=== PATIENT | male | born 1975 | race Caucasian/White ===

== ENCOUNTER → 2018-11-09 07:57 | Outpatient (CLI) | payer OTHER, MEDICAID, SELFPAY ==
[2018-11-09 08:26] LABS: Add Manual Diff / Slide Review NO; Basophils Percent Auto 0.3 % (0-2); Eosinophils Percent Auto 3.6 % (2-4); Hematocrit 43.9 % (41-53); Hemoglobin 15.1 g/dL (13.5-17.5); Lymphocytes Percent Auto 36.5 % (25-40); Mean Corpuscular HGB Conc 34.3 % (30-36); Mean Corpuscular Hemoglobin 30.8 PG (26-34); Mean Corpuscular Volume 89.8 fL (80-100); Monocytes Percent Auto 9.1 % (3-14); Neutrophils Absolute Auto 3500 /uL (3000-5900); Neutrophils Percent Auto 50.5 % (50-75); Platelet Count 193 X10^3/uL (150-400); Red Blood Cell Count 4.89 X10^6/uL (4.5-5.9); Red Cell Distribution Width 14.1 % (11.6-14.8)
[2018-11-09 08:37] LABS: Alanine Aminotransferase 21 IU/L (21-72); Albumin 4.5 g/dL (3.5-5.0); Albumin Globulin Ratio 1.6 (1.0-2.8); Alkaline Phosphatase 59 U/L (38-126); Aspartate Aminotransferase 21 IU/L (17-59); Bilirubin Total 0.4 mg/dL (0.2-1.3); Blood Urea Nitrogen 11 mg/dL (9-20); Calcium 9.4 mg/dL (8.4-10.2); Carbon Dioxide 29 mmol/L (22-32); Chloride 100 mmol/L (98-107); Cholesterol 229 mg/dL (140-199); Estimated Glomerular Filt Rate > 60.0 mL/min (>60); Globulin 2.8 g/dL (1.7-4.1); Glucose 102 mg/dL (70-100); HDL Cholesterol 46 mg/dL (40-60); HEMOLYSIS 20 (0-50); LDL Cholesterol Calculated 104 mg/dL (<100); Potassium 4.3 mmol/L (3.4-5.1); Sodium 141 mmol/L (137-145); Total Protein 7.3 g/dL (6.3-8.2); Triglycerides 397 mg/dL (35-150)
[2018-11-09 09:07] LABS: TSH w/ Reflex to FT4 1.61 uIU/mL (0.47-4.68)
[2018-11-12 17:44] LABS: Testosterone Free 26.7 pg/mL (35.0-155.0); Testosterone Total 233 ng/dL (250-1100)
== END ==
PROVIDERS: PCP Family Medicine; Visit Provider Family Medicine
DX: R68.82 Decreased libido (principal); Z13.220 Encounter for screening for lipoid disorders
CPT/HCPCS: 36415; 80053; 80061; 84402; 84403; 84443; 85025

== ENCOUNTER → 2022-09-25 15:32 | Outpatient (CLI) | payer OTHER, MEDICAID, SELFPAY ==
[2022-09-25 16:23] LABS: COVID19 -Nasal RAPID Negative (Negative)
== END ==
PROVIDERS: PCP Family Medicine; Visit Provider Surgery
DX: Z20.822 Contact with and (suspected) exposure to COVID-19 (principal); Z01.812 Encounter for preprocedural laboratory examination
CPT/HCPCS: 87635; C9803

== ENCOUNTER 2022-09-26 13:35 | Day surgery (SDC) | payer OTHER, MEDICAID, SELFPAY ==
--- NOTE | 2022-09-26 | PATH_ITS ---
[facility] Accession Number: [id number] . 01 Material submitted: . colon - CECAL POLYP . 01 Diagnosis: Cecum, Polyp, Biopsy: Tubular adenoma. MRV 10/01/2022 1246 Local . 01 Electronically signed: . Heaven Brenner MD, Pathologist NPI- [id number] . 01 Gross description: . CECAL POLYP: Received in formalin is 1 fragment(s) of de la cruz, soft tissue measuring 0.6 x 0.3 x 0.3 cm submitted entirely in 1 cassette(s) /[place] 09/30/2022 1853 Local . 01 Pathologist provided ICD-10: D12.0 . 01 CPT . 085965 Specimen Comment: A courtesy copy of this report has been sent to [phone] Performed at: 01 [facility] [address] [place] [address] [id number] MD Drew Ludwig MD Phone: [phone]
[2022-09-26 14:03] VITALS: BP 163/102; PULSE 106; RESP 17; TEMP 36.6; O2SAT 100; BMI 31.5
[2022-09-26] MEDS: LACTATED RINGERS 1,000 ML 42 ML IV (14:33)
--- NOTE | 2022-09-26 15:52 | PM.HP.1 ---
History of Present Illness History of Present Illness Date Patient Seen: 09/26/22 Time Patient Seen: 15:53 Chief complaint: SDC Narrative: Eric is a 46-year-old man who has never had a colonoscopy. He has had family members with colon cancer including both grandparents and aunt. Patient History Medical History (Updated 09/26/22 @ 15:53 by Harrison Van MD) Acne (Unknown) Alcohol abuse (~2016) Decreased libido Erectile dysfunction Essential hypertension (09/12/16) Hypertension (2004) Low back pain (Unknown) Polyneuropathy (Unknown) Surgical History Hx of cholecystectomy (2001) Family & Social History Family History Grandmother Mental health problem Grandfather Cancer Grandmother Cancer Social History: household members spouse Tobacco & Substance use: Smoking Status Former smoker alcohol intake current alcohol intake frequency 0-2 drinks per day Substance Use Type does not use Meds Home Medications and Allergies Home Medications Medication Instructions Recorded Confirmed Type propranolol 10 mg tablet 10 mg PO TIDP PRN anxiety #90 tabs 04/30/18 Rx lisinopril 20 mg tablet 20 mg PO QDAY #90 tabs 03/16/19 09/26/22 Rx doxycycline monohydrate 50 mg 50 mg PO DAILY 09/26/22 History capsule pregabalin 75 mg capsule 75 mg PO TID 09/26/22 09/26/22 History tramadol 50 mg tablet 50 mg PO DAILY 09/26/22 09/26/22 History Allergies Allergy/AdvReac Type Severity Reaction Status Date / Time No Known Drug Allergies Allergy Verified 09/26/22 13:53 Exam Vital Signs (past 8 hours): - 09/26/22 14:03 Temperature 98 F Pulse Rate 106 H Respiratory Rate 17 Blood Pressure 163/102 H Pulse Oximetry 100 Oxygen Delivery Method Room Air Oxygen Delivery Method Room Air Const General: healthy appearing Assessment & Plan Assessment and plan (1) Family history of colon cancer: Status: Acute Plan Eric is a 46-year-old man who is here for colonoscopy. We reviewed the risks and benefits and he would like to proceed. Time Spent With Patient Critical Care time: I spent a total of [] minutes of critical care time on this patient's care today; this time is exclusive of procedural time.
[2022-09-26] MEDS: MIDAZOLAM 5 MG/5 ML VIAL 10 MG IV (16:09)
[2022-09-26] MEDS: fentaNYL 100 MCG/2 ML INJ 250 MCG IV (16:13)
--- NOTE | 2022-09-26 16:25 | PM.OP.COLON ---
Operative Date/Time/Diagnoses Date of procedure: 09/26/22 Time of procedure: 16:25 Pre-op diagnosis: Colon cancer screening Post-op diagnosis: same Procedure & Clinicians Study performed: Colonoscopy Same procedure as scheduled: Yes Surgeon: Harrison Van Procedure Notes Procedure in detail: Surgeon: Harrison Van MD Procedure: The patient was brought to the endoscopy suite, placed in left lateral decubitus position. The patient was connected to monitoring devices. A time-out was performed. Sedation was administered. Once the patient was adequately sedated, a digital rectal exam was performed and was normal. The scope was then inserted and advanced to the cecum where the appendiceal orifice was identified and photographed. The scope was then slowly withdrawn over greater than 6 minutes. The mucosa was thoroughly inspected. There was a 5 mm cecal polyp removed with a cold snare. No other abnormalities were noted. The scope was retroflexed in the rectum. Some internal hemorrhoids were noted. The scope was straightened and removed. The patient was awakened and brought to recovery. Versed: 10 mg Fentanyl: 250 mcg EBL: 5 mL Findings: 5 mm cecal polyp Scope withdrawal time: 10 Sedation minutes: 24 Post-procedure Recommendations: Will call with biopsy results Disposition: PACU
[2022-09-26 16:29] VITALS: BP 140/91; PULSE 98; RESP 15; TEMP 36.3; O2SAT 98
[2022-09-26 16:34] VITALS: BP 137/94; PULSE 94; RESP 14; O2SAT 98
[2022-09-26 16:39] VITALS: BP 128/89; PULSE 85; RESP 15; O2SAT 98
[2022-09-26 16:43] VITALS: BP 130/86; PULSE 79; RESP 14; TEMP 36.2; O2SAT 98
== END 2022-09-26 16:52 | disposition home or self-care (01) ==
PROVIDERS: PCP Family Medicine; Referring Provider Surgery; Visit Provider Surgery
PROC: 0DJD8ZZ Inspection of Lower Intestinal Tract, Via Natural or Artificial Opening Endoscopic (ICD-10-PCS; CPT 45378; principal; 2022-09-26 14:30)
DX: Z12.11 Encounter for screening for malignant neoplasm of colon (principal); D12.0 Benign neoplasm of cecum
CPT/HCPCS: 45385; 99152; 99153; J2250; J3010

== ENCOUNTER 2023-06-20 23:27 | Emergency (ER) | payer OTHER, MEDICAID, SELFPAY ==
[2023-06-20 23:33] VITALS: BP 151/93; PULSE 94; RESP 16; TEMP 36.4; O2SAT 95
[2023-06-21] MEDS: THIAMINE 100 MG in SODIUM CHLORIDE 0.9% 100 ML 404 MG IV (01:35)
[2023-06-21] MEDS: SODIUM CHLORIDE 0.9% 1,000 ML 1000 ML IV (01:36)
--- NOTE | 2023-06-21 01:41 | PC.NURSE ---
pt states he drinks daily when asked how much he just states a lot, does have a history of having the shakes and has had withdrawal sz in the past. pt asked when was the last time he had either and he stated he had the shakes a couple of days ago
[2023-06-21 01:44] LABS: Add Manual Diff / Slide Review NO; Basophils Absolute Auto 0 /uL (0-100); Basophils Percent Auto 0.8 % (0-2); Eosinophils Absolute Auto 200 /uL (0-450); Eosinophils Percent Auto 4.4 % (2-4); Hemoglobin 16.5 g/dL (13.5-17.5); Lymphocytes Absolute Auto 2400 /uL (1100-4500); Lymphocytes Percent Auto 47.9 % (25-40); Mean Corpuscular HGB Conc 35.9 % (30-36); Mean Corpuscular Hemoglobin 34.6 PG (26-34); Mean Corpuscular Volume 96.4 fL (80-100); Monocytes Absolute Auto 400 /uL (0-900); Monocytes Percent Auto 7.8 % (3-14); Neutrophils Absolute Auto 1900 /uL (1500-7000); Neutrophils Percent Auto 39.1 % (50-75); Platelet Count 153 X10^3/uL (150-400); Red Blood Cell Count 4.77 X10^6/uL (4.5-5.9); Red Cell Distribution Width 14.3 % (11.6-14.8); White Blood Cell Count 4.9 X10^3/uL (4.5-11.0)
[2023-06-21 01:49] LABS: Alanine Aminotransferase 53 IU/L (<50); Albumin 4.4 g/dL (3.5-5.0); Albumin Globulin Ratio 1.3 (1.0-2.8); Alkaline Phosphatase 71 U/L (38-126); Aspartate Aminotransferase 69 IU/L (17-59); BUN Creatinine Ratio 9.2 (6-22); Bilirubin Total 0.8 mg/dL (0.2-1.3); Blood Urea Nitrogen 8 mg/dL (9-20); Carbon Dioxide 27 mmol/L (22-32); Chloride 97 mmol/L (98-107); Estimated Glomerular Filt Rate > 60 mL/min (>60); Globulin 3.4 g/dL (1.7-4.1); Glucose 108 mg/dL (70-100); HEMOLYSIS < 15 (0-50); Lipase 54 U/L (23-300); Potassium 4.1 mmol/L (3.4-5.1); Sodium 141 mmol/L (137-145); Total Protein 7.8 g/dL (6.3-8.2)
[2023-06-21 02:14] LABS: Ethanol (ETOH) 432 mg/dL
--- NOTE | 2023-06-21 03:51 | ED.GENADULT ---
HPI - General Adult General Chief complaint: Toxicology Problem Stated complaint: ETOH Time Seen by Provider: 06/21/23 00:07 Mode of arrival: EMS History of Present Illness HPI narrative: 47-year-old gentleman who reportedly has been on a 3 day drinking binge. His noticed that he was slumped over in the chair slid off the chair onto the floor without significant injury. was concerned, called EMS, patient was reportedly relatively aggressive with EMS but has calmed nicely in the emergency department. He is acutely intoxicated and effective communication is challenging. He has no specific complaints at this time Related Data Home Medications Medication Instructions Recorded Confirmed doxycycline monohydrate 50 mg 50 mg PO DAILY 09/26/22 capsule pregabalin 75 mg capsule 75 mg PO TID 09/26/22 09/26/22 tramadol 50 mg tablet 50 mg PO DAILY 09/26/22 09/26/22 Previous Rx's Medication Instructions Recorded propranolol 10 mg tablet 10 mg PO TIDP PRN anxiety #90 tabs 04/30/18 lisinopril 20 mg tablet 20 mg PO QDAY #90 tabs 03/16/19 chlordiazepoxide HCl 25 mg capsule 25 mg PO TID PRN alcohol 06/21/23 withdrawal #10 caps Allergies Allergy/AdvReac Type Severity Reaction Status Date / Time No Known Drug Allergies Allergy Verified 09/26/22 13:53 Review of Systems Review of Systems ROS Unobtainable: Unobtainable due to medical condition Patient History Medical History (Updated 06/21/23 @ 06:52 by Adela Morales MD) Acne (Unknown) Alcohol abuse (~2016) Decreased libido Erectile dysfunction Essential hypertension (09/12/16) Hypertension (2004) Low back pain (Unknown) Polyneuropathy (Unknown) Surgical History Hx of cholecystectomy (2001) Family History Grandmother Mental health problem Grandfather Cancer Grandmother Cancer Social History household members: spouse Smoking Status: Former smoker Tobacco: How many years used: 1 Smokeless tobacco user: chewing tobacco (many, many years) alcohol intake: current substance use type: does not use Smoking Status: Former smoker alcohol intake frequency: 0-2 drinks per day Substance Use Type: does not use Exam Initial Vital Signs Initial Vital Signs: Vital Signs Temperature 97.6 F 06/20/23 23:33 Pulse Rate 94 H 06/20/23 23:33 Respiratory Rate 16 06/20/23 23:33 Blood Pressure 151/93 H 06/20/23 23:33 Pulse Oximetry 95 06/20/23 23:33 Oxygen Delivery Method Room Air 06/20/23 23:33 General: Acutely intoxicated but in no acute distress. Well-nourished well-developed HEENT: Moist mucous membranes, slightly flushed face with normal sclera with reactive pupils, minor abrasion to the left side of his forehead Respiratory: Lungs are clear to auscultation, no wheezing no rales no rhonchi. Full and symmetrical air movement Cardiac: Regular rate and rhythm no murmurs no bruits Abdomen: Soft, nontender, good bowel tones, no flank pain Skin: Warm and dry, no rashes Neurologic: Moving all extremities, antalgic gait Extremities: No trauma, well perfused Psych: Intoxicated, poor overall insight, slightly slurred Course Orders Ordered: ED Orders 06/21/23 01:27 Complete Blood Count AUTO DIFF Stat Comprehensive Metabolic Panel Stat ETOH [Ethanol (ETOH)] Stat Lipase Stat Discontinued Medications Thiamine HCl 100 mg/ Sodium (Chloride) 101 mls @ 404 mls/hr IV NOW ONE Stop: 06/21/23 01:32 Last Infusion: 06/21/23 02:05 Dose: 0 mls/hr Documented By: Admin: 06/21/23 01:35 Dose: 404 mls/hr Documented By: KAREEM Sodium Chloride (Normal Saline 0.9%) 1,000 mls @ 1,000 mls/hr IV BOLUS ONE Stop: 06/21/23 02:30 Last Infusion: 06/21/23 03:56 Dose: 0 mls/hr Documented By: Admin: 06/21/23 01:36 Dose: 1,000 mls/hr Documented By: KAREEM Vital Signs Vital signs: Vital Signs - 8 hr 06/20/23 23:33 06/21/23 05:30 Temperature 97.6 F Pulse Rate 94 H 80 Respiratory Rate 16 16 Blood Pressure 151/93 H 143/93 H Pulse Oximetry 95 98 Oxygen Delivery Method Room Air Room Air Medical Decision Making Lab Data 06/21/23 01:27 06/21/23 01:27 Labs: Lab Results 06/21/23 06/21/23 06/21/23 Range/Units 01:27 01:27 01:27 WBC 4.9 (4.5-11.0) X10^3/uL RBC 4.77 (4.5-5.9) X10^6/uL Hgb 16.5 (13.5-17.5) g/dL Hct 46.0 (41-53) % MCV 96.4 (80-100) fL MCH 34.6 H (26-34) PG MCHC 35.9 (30-36) % RDW 14.3 (11.6-14.8) % Plt Count 153 (150-400) X10^3/uL Neut % (Auto) 39.1 L (50-75) % Lymph % (Auto) 47.9 H (25-40) % Spink % (Auto) 7.8 (3-14) % Eos % (Auto) 4.4 H (2-4) % Baso % (Auto) 0.8 (0-2) % Neut # (Auto) 1900 (9719-3276) /uL Lymph # (Auto) 2400 (9574-2801) /uL Spink # (Auto) 400 (0-900) /uL Eos # (Auto) 200 (0-450) /uL Baso # (Auto) 0 (0-100) /uL Sodium 141 (137-145) mmol/L Potassium 4.1 (3.4-5.1) mmol/L Chloride 97 L (98-107) mmol/L Carbon Dioxide 27 (22-32) mmol/L BUN 8 L (9-20) mg/dL Creatinine 0.87 (0.66-1.25) mg/dL Estimated GFR > 60 (>60) mL/min BUN/Creatinine Ratio 9.2 (6-22) Glucose 108 H (70-100) mg/dL Calcium 9.0 (8.4-10.2) mg/dL Total Bilirubin 0.8 (0.2-1.3) mg/dL AST 69 H (17-59) IU/L ALT 53 H (<50) IU/L Alkaline Phosphatase 71 (38-126) U/L Total Protein 7.8 (6.3-8.2) g/dL Albumin 4.4 (3.5-5.0) g/dL Globulin 3.4 (1.7-4.1) g/dL Albumin/Globulin Ratio 1.3 (1.0-2.8) Lipase 54 (23-300) U/L Ethyl Alcohol 432 H* ( - 10) mg/dL [facility] Narrative Medical decision making narrative: CC: Acute intoxication, almost passed out at home slipped to the floor, this is an acute issue uncertain prognosis Complicating co-morbidities: Alcohol use disorder that had been in relative remission, return to use over the last 72 hours. Hypertension, peripheral neuropathy Data collected from: patient, EMS Social determinants of health that may influence the patients condition: Alcohol use disorder Medical records reviewed: Primary care notes reviewed Differential considered: Acute alcohol intoxication Exam documented above, pertinent findings include: Smells of alcohol, sleeping soundly, heart and lungs are unremarkable no pain behaviors with palpation of his abdomen Lab Test results independently reviewed as above. Pertinent findings: CBC is unremarkable with no significant anemia Chemistries are relatively benign with the exception of mildly elevated AST and ALT consistent with an alcohol transaminitis Alcohol level is 432 Treatments: Parenteral fluids, thiamine Re-evaluations: 4:00 a.m. continues to be sleeping soundly. At this point simply needs to metabolize and then will need additional evaluation to see if further workup is needed. Is at risk for withdrawal symptoms 646am awake, alert, excellent discussion this morning. He has minimal recollection of last night and is profoundly embarrassed. He notes that does not do well with AA type meetings due to his fundamentalist up bringing and referral to a higher power simply is a ?non starter?. States that he is had some luck with simply cutting back on drinking but notes that when he is had an extended drinking episode like over the last 3 days he does have trouble in getting all the way to sober due to withdrawal symptoms. We discussed the use of Librium and he was quite interested in that to help him get through the next couple of days. He is calling his to pick him up. We talked about both inpatient and outpatient treatment. Did not feel that he could afford inpatient treatment and I specifically asked if he felt he could afford to not go through treatment. He took a bit of time to think through that concept. Was interested in the possibility of outpatient options. At this point he is safe for discharge home with his . Discharge Plan Departure Patient Disposition: Home Clinical Impression: Alcohol intoxication, Alcohol use disorder Instructions: DI for Alcohol Use Disorder Activity Restrictions/Additional Instructions: I am sorry that you have had such a difficult last couple of days. I am giving you a prescription for Librium to help with alcohol withdrawal symptoms you do not need to use alcohol again. Typically taking 1 pill every 6 hours for the 1st day, 1 pill every 8 hours for the 2nd day 1 pill twice a day for the 3rd day and the final day is a single pill is enough to taper you down and make the withdrawal. Not quite so terrible. I would strongly recommend thinking about formal treatment programs. If you are not able to take the time to do an inpatient program, and outpatient program can also be quite effective. [facility] [place] [address], [place], [place] [id number] [facility] [address], [place] [address] Getting to sober is difficult. It is well worth all of the work that it takes. If you find that you are getting worse or develop any new symptoms, please feel free to return to the emergency department for further evaluation. I wish you the best Prescriptions: New chlordiazepoxide HCl 25 mg capsule 25 mg PO TID PRN (Reason: alcohol withdrawal) Qty: 10 0RF Rx Instructions: QID for 24hrs, TID for 24hrs, BID for 24 hrs then one on last day of taper No Action propranolol 10 mg tablet 10 mg PO TIDP PRN (Reason: anxiety) Qty: 90 4RF lisinopril 20 mg tablet 20 mg PO QDAY Qty: 90 0RF tramadol 50 mg tablet 50 mg PO DAILY Patient Comments: TAKE 1 TABLET (50 MG TOTAL) BY MOUTH EVERY 6 (SIX) HOURS NEEDED FOR PAIN pregabalin 75 mg capsule 75 mg PO TID Patient Comments: TAKE ONE CAPSULE BY MOUTH THREE TIMES DAILY doxycycline monohydrate 50 mg capsule 50 mg PO DAILY Referrals: Mario Cutler MD [Primary Care Provider] - Stand Alone Forms: Patient Portal/API
[2023-06-21 05:30] VITALS: BP 143/93; PULSE 80; RESP 16; O2SAT 98
== END 2023-06-21 07:03 | disposition home or self-care (01) ==
PROVIDERS: Emergency Provider Emergency Medicine; PCP Family Medicine
DX: F10.129 Alcohol abuse with intoxication, unspecified (principal); Y90.8 Blood alcohol level of 240 mg/100 ml or more
CPT/HCPCS: 36415; 80053; 80320; 83690; 85025; 96360; 96361; 99284

== ENCOUNTER 2024-06-22 11:41 | Emergency (ER) | payer OTHER, MEDICAID, SELFPAY ==
[2024-06-22 11:50] VITALS: BP 140/74; PULSE 101; RESP 18; TEMP 36.8; O2SAT 99
[2024-06-22 11:54] VITALS: BP 140/74; PULSE 100; O2SAT 96
[2024-06-22 12:00] VITALS: PULSE 102; O2SAT 97
[2024-06-22 12:10] LABS: UR Morphine/Opiate cutoff 300 Negative (Negative); Ur Creatinine Normal (Normal); Ur Specific Gravity Normal (Normal); Urine Amphetamines Negative (Negative); Urine Barbiturates Negative (Negative); Urine Benzodiazepines Negative (Negative); Urine Cocaine Negative (Negative); Urine MDMA Negative (Negative); Urine Methadone Negative (Negative); Urine Methamphetamines Negative (Negative); Urine Oxycodone Negative (Negative); Urine Phencyclidine Negative (Negative); Urine Tetrahydrocannabinol Negative (Negative); Urine Tricyclic Antidepressant Negative (Negative); Urine pH Normal (Normal)
[2024-06-22 12:10] LABS: Add Manual Diff / Slide Review NO; Basophils Absolute Auto 100 /uL (0-100); Basophils Percent Auto 0.9 % (0-2); Eosinophils Absolute Auto 300 /uL (0-450); Eosinophils Percent Auto 2.9 % (2-4); Hematocrit 38.8 % (41-53); Hemoglobin 13.2 g/dL (13.5-17.5); Lymphocytes Absolute Auto 2500 /uL (1100-4500); Lymphocytes Percent Auto 21.1 % (25-40); Mean Corpuscular HGB Conc 34.1 % (30-36); Mean Corpuscular Hemoglobin 33.3 PG (26-34); Mean Corpuscular Volume 97.9 fL (80-100); Monocytes Absolute Auto 1200 /uL (0-900); Monocytes Percent Auto 9.7 % (3-14); Neutrophils Absolute Auto 7800 /uL (1500-7000); Neutrophils Percent Auto 65.4 % (50-75); Platelet Count 96 X10^3/uL (150-400); Red Blood Cell Count 3.96 X10^6/uL (4.5-5.9); Red Cell Distribution Width 16.5 % (11.6-14.8); White Blood Cell Count 11.9 X10^3/uL (4.5-11.0)
--- NOTE | 2024-06-22 12:18 | ED_ITS ---
HPI - Psych <Deirdre Stokes MD - Last Filed: 06/23/24 18:17> General Chief Complaint: Psychiatric Symptoms Stated Complaint: SI ETOH on board Time Seen by Provider: 06/22/24 12:06 History of Present Illness HPI Narrative: 48-year-old male presents for suicidal ideation. Patient has been under a lot of stress recently and has been heavily drinking over the last 3 days. Patient's called 911 because the patient was looking for a gun in order to kill himself. Patient arrives obviously intoxicated, but cooperative with staff. Related Data Home Medications Medication Instructions Recorded Confirmed doxycycline monohydrate 50 mg 50 mg PO DAILY 09/26/22 capsule pregabalin 75 mg capsule 75 mg PO TID 09/26/22 09/26/22 tramadol 50 mg tablet 50 mg PO DAILY 09/26/22 09/26/22 Previous Rx's Medication Instructions Recorded propranolol 10 mg tablet 10 mg PO TIDP PRN anxiety #90 tabs 04/30/18 lisinopril 20 mg tablet 20 mg PO QDAY #90 tabs 03/16/19 chlordiazepoxide HCl 25 mg capsule 25 mg PO TID PRN alcohol 06/21/23 withdrawal #10 caps Allergies Allergy/AdvReac Type Severity Reaction Status Date / Time No Known Drug Allergies Allergy Verified 09/26/22 13:53 Patient History <Deirdre Stokes MD - Last Filed: 06/23/24 18:17> Medical History (Updated 06/22/24 @ 20:00 by Milton Pardo MD) Decreased libido Erectile dysfunction Alcohol abuse (~2016) Low back pain (Unknown) Polyneuropathy (Unknown) Acne (Unknown) Hypertension (2004) Essential hypertension (09/12/16) Surgical History Hx of cholecystectomy (2001) Family History Grandmother Mental health problem Grandfather Cancer Grandmother Cancer Social History household members: spouse Smoking Status: Former smoker Tobacco: How many years used: 1 Smokeless tobacco user: chewing tobacco (many, many years) alcohol intake: current substance use type: does not use Smoking Status: Former smoker alcohol intake frequency: 0-2 drinks per day Substance Use Type: does not use Exam <Deirdre Stokes MD - Last Filed: 06/23/24 18:17> Initial Vital Signs Initial Vital Signs: Vital Signs Temperature 98.2 F 06/22/24 11:50 Pulse Rate 101 H 06/22/24 11:50 Respiratory Rate 18 06/22/24 11:50 Blood Pressure 140/74 06/22/24 11:50 Pulse Oximetry 99 06/22/24 11:50 Oxygen Delivery Method Room Air 06/22/24 11:50 Const: Awake, alert, intoxicated, nontoxic-appearing Eyes: Scleral icterus Cardiac: regular rate, regular rhythm RESP: unlabored, clear bilaterally, no wheezing GI: Soft, nontender, minimal distention, no fluid wave Skin: Warm, Dry, intact, no rashes Neuro: AO x3, CN II-XII grossly intact, moves all extremities <Milton Pardo MD - Last Filed: 06/23/24 15:31> Initial Vital Signs Initial Vital Signs: Vital Signs Temperature 98.2 F 06/22/24 11:50 Pulse Rate 101 H 06/22/24 11:50 Respiratory Rate 18 06/22/24 11:50 Blood Pressure 140/74 06/22/24 11:50 Pulse Oximetry 99 06/22/24 11:50 Oxygen Delivery Method Room Air 06/22/24 11:50 Course <Deirdre Stokes MD - Last Filed: 06/23/24 18:17> Orders Ordered: Discontinued Medications Folic Acid (Folic Acid 1 Mg Tablet) 1 mg PO NOW ONE Stop: 06/22/24 13:18 Last Admin: 06/22/24 13:52 Dose: 1 mg Documented By: DANY Thiamine HCl 200 mg/ Sodium (Chloride) 102 mls @ 408 mls/hr IV NOW ONE Stop: 06/22/24 13:18 Last Infusion: 06/22/24 14:33 Dose: Infused Documented By: Admin: 06/22/24 13:54 Dose: 408 mls/hr Documented By: DANY Phenobarbital (Phenobarbital 65 Mg/Ml Vial) 400 mg IV NOW ONE Stop: 06/22/24 14:38 Last Admin: 06/22/24 14:56 Dose: 260 mg Documented By: DANY Vital Signs Vital signs: Vital Signs - 8 hr 06/22/24 12:00 06/22/24 18:00 Pulse Rate 102 H 100 H Respiratory Rate 18 Blood Pressure 156/85 H Pulse Oximetry 97 99 Oxygen Delivery Method Room Air <Milton Pardo MD - Last Filed: 06/23/24 15:31> Orders Ordered: Discontinued Medications Folic Acid (Folic Acid 1 Mg Tablet) 1 mg PO NOW ONE Stop: 06/22/24 13:18 Last Admin: 06/22/24 13:52 Dose: 1 mg Documented By: DANY Thiamine HCl 200 mg/ Sodium (Chloride) 102 mls @ 408 mls/hr IV NOW ONE Stop: 06/22/24 13:18 Last Infusion: 06/22/24 14:33 Dose: Infused Documented By: Admin: 06/22/24 13:54 Dose: 408 mls/hr Documented By: DANY Phenobarbital (Phenobarbital 65 Mg/Ml Vial) 400 mg IV NOW ONE Stop: 06/22/24 14:38 Last Admin: 06/22/24 14:56 Dose: 260 mg Documented By: DANY Vital Signs Vital signs: Vital Signs - 8 hr 06/22/24 12:00 06/22/24 18:00 Pulse Rate 102 H 100 H Respiratory Rate 18 Blood Pressure 156/85 H Pulse Oximetry 97 99 Oxygen Delivery Method Room Air MDM - Psych <Deirdre Stokes MD - Last Filed: 06/23/24 18:17> Lab Data 06/22/24 12:00 06/22/24 12:00 Labs: Lab Results 06/22/24 06/22/24 Range/Units 11:50 12:00 WBC 11.9 H (4.5-11.0) X10^3/uL RBC 3.96 L (4.5-5.9) X10^6/uL Hgb 13.2 L (13.5-17.5) g/dL Hct 38.8 L (41-53) % MCV 97.9 (80-100) fL MCH 33.3 (26-34) PG MCHC 34.1 (30-36) % RDW 16.5 H (11.6-14.8) % Plt Count 96 L (150-400) X10^3/uL Neut % (Auto) 65.4 (50-75) % Lymph % (Auto) 21.1 L (25-40) % [place] % (Auto) 9.7 (3-14) % Eos % (Auto) 2.9 (2-4) % Baso % (Auto) 0.9 (0-2) % Neut # (Auto) 7800 H (6201-7069) /uL Lymph # (Auto) 2500 (6400-7020) /uL [place] # (Auto) 1200 H (0-900) /uL Eos # (Auto) 300 (0-450) /uL Baso # (Auto) 100 (0-100) /uL Sodium 144 (137-145) mmol/L Potassium 3.8 (3.4-5.1) mmol/L Chloride 107 (98-107) mmol/L Carbon Dioxide 22 (22-32) mmol/L BUN 2 L (9-20) mg/dL Creatinine 0.76 (0.66-1.25) mg/dL Estimated GFR > 60 (>60) mL/min BUN/Creatinine Ratio 2.6 L (6-22) Glucose 153 H (70-100) mg/dL Calcium 8.6 (8.4-10.2) mg/dL Total Bilirubin 4.4 H (0.2-1.3) mg/dL AST 288 H (17-59) IU/L ALT 81 H (<50) IU/L Alkaline Phosphatase 283 H (38-126) U/L Total Protein 8.3 H (6.3-8.2) g/dL Albumin 4.2 (3.5-5.0) g/dL Globulin 4.1 (1.7-4.1) g/dL Albumin/Globulin Ratio 1.0 (1.0-2.8) TSH 5.44 H (0.47-4.68) uIU/mL Free T4 1.27 (0.78-2.19) ng/dL Salicylates < 1.0 (<20) mg/dL U Opiates 300ng/mL cut Negative (Negative) Ur Oxycodone Screen Negative (Negative) Urine Methadone Screen Negative (Negative) Acetaminophen < 10 (10-30) ug/mL Ur Barbiturates Screen Negative (Negative) U Tricyclic Antidepress Negative (Negative) Ur Phencyclidine Scrn Negative (Negative) Ur Amphetamines Screen Negative (Negative) U Methamphetamines Scrn Negative (Negative) Ur MDMA Scrn (Ecstasy) Negative (Negative) U Benzodiazepines Scrn Negative (Negative) Urine Cocaine Screen Negative (Negative) U Marijuana (THC) Screen Negative (Negative) Urine pH Normal (Normal) Urine Specific [place] Normal (Normal) Ethyl Alcohol 291 H ( - 10) mg/dL Ur Creatinine Normal (Normal) SARS-CoV-2 (PCR) Positive H (Negative) Urine Dip Bedside Urine Glucose Negative Bedside Urine Bilirubin - Negative Bedside Urine Ketone - Negative Urine Specific [place] 1.010 Bedside Urine Occult Blood - Negative Bedside Urine pH 6.0 Bedside Urine Protein - Negative Bedside Urine Urobilinogen - Negative Bedside Urine Nitrite - Negative Bedside Urine Leukocytes - Negative Esterase MDM Narrative Medical decision making narrative: Alcohol intoxication and suicidal ideation. Calm and cooperative with staff. Medical clearance labs ordered. Labs significant for blood alcohol level 291. Unable to medically clear until patient reaches blood alcohol level less than 80. Patient states he feels shaky and like he was going into withdrawals. CIWA score 12. Phenobarbital ordered. Still waiting for ETOH level 2 decreased. Care of patient is signed out to Dr. Pardo at 6:00 p.m. Edvin, 06/22/2024, 1800hrs. Sign-out from Dr. Stokes. 48-year-old male with recent alcohol use, suicidal ideation, blood alcohol level 291 at noon today noted, screening COVID swab was positive though he has asymptomatic without cough or shortness of breath. community services officer consultation when more sober. Assumed interim care. 1950, case discussed with geriatric social worker, no longer feeling suicidal, contacted verbally for safety, we will pursue outpatient follow up, given resources, we will follow up with [facility] in [place]. He declined Paxlovid antiviral course for Covid when offered. We will observe patient further until further sober, consider taxi transport home. Taxi transport home, at home, outpatient follow-up as above. <Milton Pardo MD - Last Filed: 06/23/24 15:31> Lab Data Attestation: I reviewed the patient's lab results. Labs: Lab Results 06/22/24 06/22/24 Range/Units 11:50 12:00 WBC 11.9 H (4.5-11.0) X10^3/uL RBC 3.96 L (4.5-5.9) X10^6/uL Hgb 13.2 L (13.5-17.5) g/dL Hct 38.8 L (41-53) % MCV 97.9 (80-100) fL MCH 33.3 (26-34) PG MCHC 34.1 (30-36) % RDW 16.5 H (11.6-14.8) % Plt Count 96 L (150-400) X10^3/uL Neut % (Auto) 65.4 (50-75) % Lymph % (Auto) 21.1 L (25-40) % [place] % (Auto) 9.7 (3-14) % Eos % (Auto) 2.9 (2-4) % Baso % (Auto) 0.9 (0-2) % Neut # (Auto) 7800 H (2198-2631) /uL Lymph # (Auto) 2500 (8258-4330) /uL [place] # (Auto) 1200 H (0-900) /uL Eos # (Auto) 300 (0-450) /uL Baso # (Auto) 100 (0-100) /uL Sodium 144 (137-145) mmol/L Potassium 3.8 (3.4-5.1) mmol/L Chloride 107 (98-107) mmol/L Carbon Dioxide 22 (22-32) mmol/L BUN 2 L (9-20) mg/dL Creatinine 0.76 (0.66-1.25) mg/dL Estimated GFR > 60 (>60) mL/min BUN/Creatinine Ratio 2.6 L (6-22) Glucose 153 H (70-100) mg/dL Calcium 8.6 (8.4-10.2) mg/dL Total Bilirubin 4.4 H (0.2-1.3) mg/dL AST 288 H (17-59) IU/L ALT 81 H (<50) IU/L Alkaline Phosphatase 283 H (38-126) U/L Total Protein 8.3 H (6.3-8.2) g/dL Albumin 4.2 (3.5-5.0) g/dL Globulin 4.1 (1.7-4.1) g/dL Albumin/Globulin Ratio 1.0 (1.0-2.8) TSH 5.44 H (0.47-4.68) uIU/mL Free T4 1.27 (0.78-2.19) ng/dL Salicylates < 1.0 (<20) mg/dL U Opiates 300ng/mL cut Negative (Negative) Ur Oxycodone Screen Negative (Negative) Urine Methadone Screen Negative (Negative) Acetaminophen < 10 (10-30) ug/mL Ur Barbiturates Screen Negative (Negative) U Tricyclic Antidepress Negative (Negative) Ur Phencyclidine Scrn Negative (Negative) Ur Amphetamines Screen Negative (Negative) U Methamphetamines Scrn Negative (Negative) Ur MDMA Scrn (Ecstasy) Negative (Negative) U Benzodiazepines Scrn Negative (Negative) Urine Cocaine Screen Negative (Negative) U Marijuana (THC) Screen Negative (Negative) Urine pH Normal (Normal) Urine Specific [place] Normal (Normal) Ethyl Alcohol 291 H ( - 10) mg/dL Ur Creatinine Normal (Normal) SARS-CoV-2 (PCR) Positive H (Negative) Urine Dip Bedside Urine Glucose Negative Bedside Urine Bilirubin - Negative Bedside Urine Ketone - Negative Urine Specific [place] 1.010 Bedside Urine Occult Blood - Negative Bedside Urine pH 6.0 Bedside Urine Protein - Negative Bedside Urine Urobilinogen - Negative Bedside Urine Nitrite - Negative Bedside Urine Leukocytes - Negative Esterase MDM Narrative Medical decision making narrative: Edvin, 06/22/2024, 1800hrs. Sign-out from Dr. Stokes. 48-year-old male with recent alcohol use, suicidal ideation, blood alcohol level 291 at noon today noted, screening COVID swab was positive though he has asymptomatic without cough or shortness of breath. community services officer consultation when more sober. Assumed interim care. 1950, case discussed with geriatric social worker, no longer feeling suicidal, contacted verbally for safety, we will pursue outpatient follow up, given resources, we will follow up with [facility] in [place]. He declined Paxlovid antiviral course for Covid when offered. We will observe patient further until further sober, consider taxi transport home. Taxi transport home, at home, outpatient follow-up as above. Discharge Plan Departure Patient Disposition: Home Clinical Impression: Alcohol intoxication, COVID, Suicidal ideation Instructions: Alcohol Use Disorder, DI for Suicidal Ideation-Adult, COVID-19 Activity Restrictions/Additional Instructions: Recent alcohol use and suicidal ideation. On screening studies you were found to be COVID positive, apparently without respiratory symptoms, no oxygen requirement, no respiratory distress. Unclear onset of COVID, as you were asymptomatic, unclear duration/onset timing, we discussed antiviral Paxlovid medication, declined. Consider self isolation next few days away from other people. community services officer evaluated you, you were further sober, did not feel like he were going to hurt yourself or others. You contracted for safety. He will follow up as an outpatient for further evaluation with [facility] in [place], given resources by geriatric social worker. Taxi services transferred to home with your is expecting you. Follow up with [facility] in [place] Prescriptions: No Action propranolol 10 mg tablet 10 mg PO TIDP PRN (Reason: anxiety) Qty: 90 4RF lisinopril 20 mg tablet 20 mg PO QDAY Qty: 90 0RF tramadol 50 mg tablet 50 mg PO DAILY Patient Comments: TAKE 1 TABLET (50 MG TOTAL) BY MOUTH EVERY 6 (SIX) HOURS NEEDED FOR PAIN pregabalin 75 mg capsule 75 mg PO TID Patient Comments: TAKE ONE CAPSULE BY MOUTH THREE TIMES DAILY doxycycline monohydrate 50 mg capsule 50 mg PO DAILY chlordiazepoxide HCl 25 mg capsule 25 mg PO TID PRN (Reason: alcohol withdrawal) Qty: 10 0RF Rx Instructions: QID for 24hrs, TID for 24hrs, BID for 24 hrs then one on last day of taper Referrals: Mario Cutler MD [Primary Care Provider] - Stand Alone Forms: Patient Portal/API
[2024-06-22 12:22] LABS: Acetaminophen < 10 ug/mL (10-30); Alanine Aminotransferase 81 IU/L (<50); Albumin 4.2 g/dL (3.5-5.0); Alkaline Phosphatase 283 U/L (38-126); Aspartate Aminotransferase 288 IU/L (17-59); Bilirubin Total 4.4 mg/dL (0.2-1.3); COVID19 -Nasal RAPID POSITIVE (Negative); Calcium 8.6 mg/dL (8.4-10.2); Carbon Dioxide 22 mmol/L (22-32); Chloride 107 mmol/L (98-107); Estimated Glomerular Filt Rate > 60 mL/min (>60); Ethanol (ETOH) 291 mg/dL; Globulin 4.1 g/dL (1.7-4.1); Glucose 153 mg/dL (70-100); HEMOLYSIS < 15 (0-50); Potassium 3.8 mmol/L (3.4-5.1); Salicylate < 1.0 mg/dL (<20); Sodium 144 mmol/L (137-145); Total Protein 8.3 g/dL (6.3-8.2)
[2024-06-22 12:24] LABS: BUN Creatinine Ratio 2.6 (6-22); Blood Urea Nitrogen 2 mg/dL (9-20)
--- NOTE | 2024-06-22 12:26 | PC.NURSE ---
ADMITTING OFFICE ESCORT Note: When assisting patient back to room patient said give me a gun. I told the patient I can't do that, patient said give me two guns. I told the patient again that I cannot do that, patient then said give me a big bottle of percocet. I told the patient again that I cannot do that and told the patient that I will be exiting the room and that if he needs anything to ask for me or his nurse.
[2024-06-22 12:46] LABS: Free T4, Direct Thyroxine 1.27 ng/dL (0.78-2.19)
--- NOTE | 2024-06-22 12:53 | PC.NURSE ---
QUALITY IMPROVEMENT COORDINATOR Note: Patient was asked to change into hospital scrubs. Pt refused to changed but took off shoes and belt. Patient called , no answer at the time.
[2024-06-22 13:00] LABS: Thyroid Stimulating Hormone 5.44 uIU/mL (0.47-4.68)
--- NOTE | 2024-06-22 13:16 | PC.NURSE ---
INDUSTRIAL SALES REPRESENTATIVE Note: I was sitting between rooms 11 and 13 and noticed that the patient stood up and went to his hands and knees on the floor. I went in to check on patient and he said I don't know whats wrong with me I cant stand up. I asked the patient if he wanted to sit back in bed and patient stated No the floor is cold, Id like to stay here. I sat with the patient for a few minutes and let him tell me stories of his cats to help calm him, patient remains on the floor per patient request but is in line of site.
--- NOTE | 2024-06-22 13:36 | PC.NURSE ---
OIL FIELD TECHNICIAN: Patient refuses to sit in chair, and prefers to sit on the floor. Patient is calm
[2024-06-22] MEDS: FOLIC ACID 1 MG TABLET PO (13:52)
[2024-06-22] MEDS: THIAMINE 200 MG in SODIUM CHLORIDE 0.9% 100 ML 408 MG IV (13:54)
--- NOTE | 2024-06-22 13:56 | PC.NURSE ---
CLIENT ACCOUNT SPECIALIST: Pt transferred to restroom via wheelchair
[2024-06-22] MEDS: PHENobarbital 65 MG/ML VIAL 400 MG IV (14:56)
--- NOTE | 2024-06-22 15:28 | PC.NURSE ---
CONDUCTOR SYMPHONIC ORCHESTRA note; Book provided to patient. Patient is calm
[2024-06-22 18:00] VITALS: BP 156/85; PULSE 100; RESP 18; O2SAT 99
--- NOTE | 2024-06-22 18:10 | CM.SWNOTE ---
ED MALT LOADER Note: ED MALT LOADER initiated possible bed placement (no medical clearance at this time with [facility] BAL), inquiring with facilities if asymptomatic COVID+ patients can be considered. ED MALT LOADER called [facility], spoke with Jimmie. It was reported that they do not review patients with a COVID+ test. ED MALT LOADER called [facility], It was reported that they do not review patients with a COVID+ test. [facility], [facility] was reported that they do not review patients with a COVID+ test. ED MALT LOADER called [facility], it was reported that there are COVID beds available but they get taken fast. Intake recommended a packet be sent for review this evening, beds will not be available until 06/23 in the morning. ED MALT LOADER reviewed this with ED Provider, Dr. Stokes, who indicated understanding. Plan: Pt awaiting medical clearance before packets can be sent to [facility] for review for MH and NAA detox. MELIZA Tang
--- NOTE | 2024-06-22 19:11 | CM.SWNOTE ---
ED COMMISSIONING SPECIALIST Assessment Note: Patient is a 48yo male, resident of [place], presented [place] with [employer] [employer] for SI and ETOH withdrawal. Per [employer], pt was trying to find a gun in the home to end his life because of his feelings of overwhelm and frustration over many stressors in his life to include being the primary caregiver for his [id number]. Patient's primary care provider is Dr. Mario Cutler MD and insurance is [facility] [employer] and Medicaid. Patient presented to the ED with a BAL of 291, awaiting medical clearance before pt is available for review at other facilities. Patient is also COVID+. Please see previous COMMISSIONING SPECIALIST note for initial bed search. ED COMMISSIONING SPECIALIST entered room, introduced self and role. Patient explained the events of today to include suicide ideation and plan to shoot self with firearm. 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 Pt acknowledged his [id number] is admitted at the acute care floor and this has been a big stress for him to exacerbate his excessive drinking. Patient reports, I've been a drunk for years now. That's no secret. Patient explains he typically drinks about a 6pack everyday and has a hx of pancreatitis. Patient states he is not in a place to address his drinking at this time although he knows his drinking is problematic. Pt denied SI/HI during assessment. Pt endorsed hopelessness and overwhelm with the caregiving situation at home. Pt was able to contract for safety and is agreeable to referral to outpatient NAA at [facility]. At this time, it is the opinion of this COMMISSIONING SPECIALIST that patient would benefit from follow up with outpatient NAA treatment/counseling; [facility] referral made by this ED COMMISSIONING SPECIALIST. COMMISSIONING SPECIALIST informs ED provider, Dr. Pardo who indicates agreement. COMMISSIONING SPECIALIST informs RNs Geovanna. Plan: When medically stable, pt to discharge home and follow up with [facility] for NAA counseling/treatment. MELIZA Tang
[2024-06-22 20:26] VITALS: BP 167/81; PULSE 101; RESP 19; O2SAT 99
--- NOTE | 2024-06-22 20:26 | PC.NURSE ---
Dr. Pardo aware of vitals, deems pt is safe to go home.
== END 2024-06-22 20:52 | disposition home or self-care (01) ==
PROVIDERS: Emergency Medicine; Emergency Provider Emergency Medicine; PCP Family Medicine
DX: F10.129 Alcohol abuse with intoxication, unspecified (principal); Y90.8 Blood alcohol level of 240 mg/100 ml or more; U07.1 COVID-19; R45.851 Suicidal ideations
CPT/HCPCS: 80053; 80305; 80320; 80329; 81003; 84439; 84443; 85025; 87635; 96361; 96374; 99284; G0480; J2560

== ENCOUNTER 2024-11-18 17:05 | Emergency (ER) | payer OTHER, SELFPAY ==
[2024-11-18] VITALS (10 sets, daily range): BP systolic 167–192; BP diastolic 72–89; PULSE 117–133; RESP 16–23; TEMP 37.3; O2SAT 99–100; BMI 35.3
--- NOTE | 2024-11-18 17:10 | EKG_ITS ---
[place] [id number] [place] [id number] Test Date: 2024-11-18 Pat Name: Eric Fontenot Department: Room: Gender: Male [employer]: MARGIE : 1975 Requested By: Order Number: [id number] Reading MD: Otto George Measurements Intervals [place] Rate: 124 P: 59 SD: 172 QRS: 21 QRSD: 76 T: 35 QT: 306 QTc: 439 Interpretive Statements Sinus tachycardia with occasional premature ventricular complexes Anterior infarct , age undetermined Electronically Signed On 11-19-2024 8:19:59 PST by Otto George
[2024-11-18 17:19] LABS: Add Manual Diff / Slide Review NO; Basophils Absolute Auto 100 /uL (0-100); Basophils Percent Auto 0.9 % (0-2); Eosinophils Absolute Auto 200 /uL (0-450); Eosinophils Percent Auto 2.1 % (2-4); Hematocrit 25.5 % (41-53); Hemoglobin 8.6 g/dL (13.5-17.5); Lymphocytes Absolute Auto 1200 /uL (1100-4500); Lymphocytes Percent Auto 14.4 % (25-40); Mean Corpuscular HGB Conc 33.7 % (30-36); Mean Corpuscular Hemoglobin 32.5 PG (26-34); Mean Corpuscular Volume 96.3 fL (80-100); Monocytes Absolute Auto 1200 /uL (0-900); Monocytes Percent Auto 15.1 % (3-14); Neutrophils Absolute Auto 5500 /uL (1500-7000); Neutrophils Percent Auto 67.5 % (50-75); Platelet Count 80 X10^3/uL (150-400); Red Blood Cell Count 2.65 X10^6/uL (4.5-5.9); Red Cell Distribution Width 17.5 % (11.6-14.8); White Blood Cell Count 8.2 X10^3/uL (4.5-11.0)
--- NOTE | 2024-11-18 17:26 | ED_ITS ---
HPI - General Adult <Bj ManciniDO darion - Last Filed: 11/25/24 18:04> General Chief complaint: Weakness Stated complaint: ETOH Time Seen by Provider: 11/18/24 17:08 Source: patient Mode of arrival: Ambulatory Limitations: no limitations History of Present Illness HPI narrative: Patient is a 49-year-old male. History of hypertension and alcohol use/abuse who is here for evaluation of lower extremity edema and abdominal distention. No vomiting. No fevers. He states the symptoms are somewhat better in the morning but worsen as the day goes on. He was still drinking in his last drink was about an hour prior to arrival here in the ER. No history of heart failure. He does report some shortness of breath recently. No cough. No urinary symptoms or change in bowel habits. Has not tried anything for symptoms prior to arrival. Related Data Home Medications Medication Instructions Recorded Confirmed pregabalin 75 mg capsule 75 mg PO TID 09/26/22 11/23/24 Previous Rx's Medication Instructions Recorded chlordiazepoxide HCl 25 mg capsule 25 mg PO DIRECTED #15 caps 11/18/24 furosemide 40 mg tablet (Lasix) 40 mg PO DAILY #30 tabs 11/18/24 spironolactone 25 mg tablet 25 mg PO DAILY #30 tabs 11/18/24 Allergies Allergy/AdvReac Type Severity Reaction Status Date / Time No Known Drug Allergies Allergy Verified 09/26/22 13:53 Review of Systems <Bj LiveDO darion - Last Filed: 11/25/24 18:04> Review of Systems ROS Unobtainable: All systems reviewed & are unremarkable except as noted in HPI and below Patient History <Bj Forman DO - Last Filed: 11/25/24 18:04> Medical History Decreased libido Erectile dysfunction Alcohol abuse (~2017) Low back pain (Unknown) Polyneuropathy (Unknown) Acne (Unknown) Hypertension (2004) Essential hypertension (09/12/16) Surgical History Hx of cholecystectomy (2001) Family History Grandmother Mental health problem Grandfather Cancer Grandmother Cancer Social History household members: spouse Smoking Status: Former smoker Tobacco: How many years used: 1 Smokeless tobacco user: chewing tobacco (many, many years) alcohol intake: current substance use type: does not use Smoking Status: Former smoker alcohol intake frequency: 0-2 drinks per day Alcohol type: beer Exam <Bj Forman DO - Last Filed: 11/25/24 18:04> Initial Vital Signs Initial Vital Signs: Vital Signs Blood Pressure 177/82 H 11/18/24 17:08 Const General: cooperative and comfortable HENMT Head: normal to inspection and normocephalic Resp Effort & Inspection: normal respiratory effort Auscultation: clear to auscultation bilaterally Cardio Rate: tachycardic Rhythm: regular rhythm GI Inspection: normal to inspection Neuro General: patient alert, patient awake, patient oriented x3 and moves all extremities Extrem General: edema <Deirdre Stokes MD - Last Filed: 11/18/24 23:46> Initial Vital Signs Initial Vital Signs: Vital Signs Blood Pressure 177/82 H 11/18/24 17:08 Course <Bj Forman DO - Last Filed: 11/25/24 18:04> Orders Ordered: Discontinued Medications Chlordiazepoxide HCl (Chlordiazepoxide 25 Mg Capsule) 50 mg PO NOW ONE Stop: 11/18/24 19:42 Last Admin: 11/18/24 19:45 Dose: 50 mg Documented By: NADINE Folic Acid (Folic Acid 1 Mg Tablet) 1 mg PO NOW ONE Stop: 11/18/24 17:59 Last Admin: 11/18/24 18:07 Dose: 1 mg Documented By: CHLOE Furosemide (Furosemide 40 Mg/4 Ml Vial) 40 mg IV NOW ONE Stop: 11/18/24 19:41 Last Admin: 11/18/24 19:45 Dose: 40 mg Documented By: NADINE Thiamine HCl 200 mg/ Sodium (Chloride) 102 mls @ 408 mls/hr IV NOW ONE Stop: 11/18/24 17:59 Last Infusion: 11/18/24 18:48 Dose: Infused Documented By: Admin: 11/18/24 18:07 Dose: 408 mls/hr Documented By: CHLOE Phenobarbital (Phenobarbital 65 Mg/Ml Vial) 260 mg IV NOW ONE Stop: 11/18/24 18:25 Last Admin: 11/18/24 18:28 Dose: 260 mg Documented By: ANILA Phenobarbital (Phenobarbital 65 Mg/Ml Vial) 260 mg IV NOW ONE Stop: 11/18/24 19:07 Last Admin: 11/18/24 19:18 Dose: 260 mg Documented By: NADINE Vital Signs Vital signs: Vital Signs - 8 hr 11/18/24 17:08 11/18/24 17:10 11/18/24 17:20 Temperature Pulse Rate 129 H 125 H Respiratory Rate 16 19 Blood Pressure 177/82 H 177/82 H Pulse Oximetry 100 100 Oxygen Delivery Method Room Air 11/18/24 17:30 11/18/24 17:30 11/18/24 17:34 Temperature 99.2 F Pulse Rate 124 H Respiratory Rate 22 Blood Pressure 171/80 H Pulse Oximetry 100 Oxygen Delivery Method 11/18/24 18:00 11/18/24 18:00 11/18/24 18:30 Temperature Pulse Rate 117 H 124 H Respiratory Rate 23 Blood Pressure 174/83 H Pulse Oximetry 100 100 Oxygen Delivery Method 11/18/24 18:33 11/18/24 18:33 11/18/24 19:00 Temperature Pulse Rate 133 H 119 H Respiratory Rate 20 Blood Pressure 192/89 H Pulse Oximetry 100 99 Oxygen Delivery Method 11/18/24 19:00 11/18/24 19:30 11/18/24 19:30 Temperature Pulse Rate 120 H Respiratory Rate 20 Blood Pressure 167/77 H 170/72 H Pulse Oximetry 99 Oxygen Delivery Method <Deirdre Stokes MD - Last Filed: 11/18/24 23:46> Orders Ordered: Discontinued Medications Chlordiazepoxide HCl (Chlordiazepoxide 25 Mg Capsule) 50 mg PO NOW ONE Stop: 11/18/24 19:42 Last Admin: 11/18/24 19:45 Dose: 50 mg Documented By: NADINE Folic Acid (Folic Acid 1 Mg Tablet) 1 mg PO NOW ONE Stop: 11/18/24 17:59 Last Admin: 11/18/24 18:07 Dose: 1 mg Documented By: CHLOE Furosemide (Furosemide 40 Mg/4 Ml Vial) 40 mg IV NOW ONE Stop: 11/18/24 19:41 Last Admin: 11/18/24 19:45 Dose: 40 mg Documented By: NADINE Thiamine HCl 200 mg/ Sodium (Chloride) 102 mls @ 408 mls/hr IV NOW ONE Stop: 11/18/24 17:59 Last Infusion: 11/18/24 18:48 Dose: Infused Documented By: Admin: 11/18/24 18:07 Dose: 408 mls/hr Documented By: CHLOE Phenobarbital (Phenobarbital 65 Mg/Ml Vial) 260 mg IV NOW ONE Stop: 11/18/24 18:25 Last Admin: 11/18/24 18:28 Dose: 260 mg Documented By: ANILA Phenobarbital (Phenobarbital 65 Mg/Ml Vial) 260 mg IV NOW ONE Stop: 11/18/24 19:07 Last Admin: 11/18/24 19:18 Dose: 260 mg Documented By: NADINE Vital Signs Vital signs: Vital Signs - 8 hr 11/18/24 17:08 11/18/24 17:10 11/18/24 17:20 Temperature Pulse Rate 129 H 125 H Respiratory Rate 16 19 Blood Pressure 177/82 H 177/82 H Pulse Oximetry 100 100 Oxygen Delivery Method Room Air 11/18/24 17:30 11/18/24 17:30 11/18/24 17:34 Temperature 99.2 F Pulse Rate 124 H Respiratory Rate 22 Blood Pressure 171/80 H Pulse Oximetry 100 Oxygen Delivery Method 11/18/24 18:00 11/18/24 18:00 11/18/24 18:30 Temperature Pulse Rate 117 H 124 H Respiratory Rate 23 Blood Pressure 174/83 H Pulse Oximetry 100 100 Oxygen Delivery Method 11/18/24 18:33 11/18/24 18:33 11/18/24 19:00 Temperature Pulse Rate 133 H 119 H Respiratory Rate 20 Blood Pressure 192/89 H Pulse Oximetry 100 99 Oxygen Delivery Method 11/18/24 19:00 11/18/24 19:30 11/18/24 19:30 Temperature Pulse Rate 120 H Respiratory Rate 20 Blood Pressure 167/77 H 170/72 H Pulse Oximetry 99 Oxygen Delivery Method Medical Decision Making <Bj Forman DO - Last Filed: 11/25/24 18:04> Lab Data 11/18/24 17:08 11/18/24 17:08 Labs: Lab Results 11/18/24 11/18/24 Range/Units 17:08 17:14 WBC 8.2 (4.5-11.0) X10^3/uL RBC 2.65 L (4.5-5.9) X10^6/uL Hgb 8.6 L (13.5-17.5) g/dL Hct 25.5 L (41-53) % MCV 96.3 (80-100) fL MCH 32.5 (26-34) PG MCHC 33.7 (30-36) % RDW 17.5 H (11.6-14.8) % Plt Count 80 L (150-400) X10^3/uL Neut % (Auto) 67.5 (50-75) % Lymph % (Auto) 14.4 L (25-40) % Anderson % (Auto) 15.1 H (3-14) % Eos % (Auto) 2.1 (2-4) % Baso % (Auto) 0.9 (0-2) % Neut # (Auto) 5500 (3542-6266) /uL Lymph # (Auto) 1200 (7021-3368) /uL Anderson # (Auto) 1200 H (0-900) /uL Eos # (Auto) 200 (0-450) /uL Baso # (Auto) 100 (0-100) /uL Sodium 134 L (137-145) mmol/L Potassium 3.4 (3.4-5.1) mmol/L Chloride 105 (98-107) mmol/L Carbon Dioxide 22 (22-32) mmol/L BUN 9 (9-20) mg/dL Creatinine 0.82 (0.66-1.25) mg/dL Estimated GFR > 60 (>60) mL/min BUN/Creatinine Ratio 11.0 (6-22) Glucose 328 H (70-100) mg/dL Calcium 9.2 (8.4-10.2) mg/dL Total Bilirubin 3.8 H (0.2-1.3) mg/dL Conjugated Bilirubin 0.4 H (0.0-0.3) md/dL Unconjugated Bilirubin 1.0 (0.0-1.1) mg/dL AST 96 H (17-59) IU/L ALT 36 (<50) IU/L Alkaline Phosphatase 199 H (38-126) U/L Total Creatine Kinase 88 (55-170) U/L Troponin I 0.032 (0.01-0.034) ng/mL NT-Pro-B Natriuret Pep 136 H (<125) pg/mL Total Protein 7.8 (6.3-8.2) g/dL Albumin 3.6 (3.5-5.0) g/dL Globulin 4.2 H (1.7-4.1) g/dL Albumin/Globulin Ratio 0.9 L (1.0-2.8) Lipase 346 H (23-300) U/L Ethyl Alcohol 36 H ( - 10) mg/dL ECG Data Attestation: I personally reviewed and interpreted this ECG as follows: Interpretation: Sinus tachycardia Ventricular rate 124 Normal axis Artifact noted in lateral leads, no ST T wave changes MDM Narrative Medical decision making narrative: Patient was have history of alcohol use/abuse. He does have significant lower extremity edema and also abdominal distention as well. No discomfort. Afebrile. BNP relatively unremarkable. Care turned over to Dr. Stokes at change of shift to follow up and disposition. <Deirdre Stokes MD - Last Filed: 11/18/24 23:46> Lab Data Labs: Lab Results 11/18/24 11/18/24 Range/Units 17:08 17:14 WBC 8.2 (4.5-11.0) X10^3/uL RBC 2.65 L (4.5-5.9) X10^6/uL Hgb 8.6 L (13.5-17.5) g/dL Hct 25.5 L (41-53) % MCV 96.3 (80-100) fL MCH 32.5 (26-34) PG MCHC 33.7 (30-36) % RDW 17.5 H (11.6-14.8) % Plt Count 80 L (150-400) X10^3/uL Neut % (Auto) 67.5 (50-75) % Lymph % (Auto) 14.4 L (25-40) % Anderson % (Auto) 15.1 H (3-14) % Eos % (Auto) 2.1 (2-4) % Baso % (Auto) 0.9 (0-2) % Neut # (Auto) 5500 (5950-0306) /uL Lymph # (Auto) 1200 (6827-8844) /uL Anderson # (Auto) 1200 H (0-900) /uL Eos # (Auto) 200 (0-450) /uL Baso # (Auto) 100 (0-100) /uL Sodium 134 L (137-145) mmol/L Potassium 3.4 (3.4-5.1) mmol/L Chloride 105 (98-107) mmol/L Carbon Dioxide 22 (22-32) mmol/L BUN 9 (9-20) mg/dL Creatinine 0.82 (0.66-1.25) mg/dL Estimated GFR > 60 (>60) mL/min BUN/Creatinine Ratio 11.0 (6-22) Glucose 328 H (70-100) mg/dL Calcium 9.2 (8.4-10.2) mg/dL Total Bilirubin 3.8 H (0.2-1.3) mg/dL Conjugated Bilirubin 0.4 H (0.0-0.3) md/dL Unconjugated Bilirubin 1.0 (0.0-1.1) mg/dL AST 96 H (17-59) IU/L ALT 36 (<50) IU/L Alkaline Phosphatase 199 H (38-126) U/L Total Creatine Kinase 88 (55-170) U/L Troponin I 0.032 (0.01-0.034) ng/mL NT-Pro-B Natriuret Pep 136 H (<125) pg/mL Total Protein 7.8 (6.3-8.2) g/dL Albumin 3.6 (3.5-5.0) g/dL Globulin 4.2 H (1.7-4.1) g/dL Albumin/Globulin Ratio 0.9 L (1.0-2.8) Lipase 346 H (23-300) U/L Ethyl Alcohol 36 H ( - 10) mg/dL Imaging Data CT scan - abdomen/pelvis: Radiologist's Impression: PROCEDURE: CT ABDOMEN PELVIS W CON INDICATIONS: ABDOMINAL DISTENSION, ETOH ABUSE TECHNIQUE: After the administration of intravenous contrast, axial sections acquired from the lung bases to the pubic symphysis. Coronal and sagittal reformats were performed. For radiation dose reduction, the following was used: automated exposure control, adjustment of mA and/or kV according to patient size. COMPARISON: None. FINDINGS: Image quality: Diagnostic Lower chest: No basal opacities identified. Mild nonspecific distal esophageal wall thickening. Normal heart size. Liver: Hepatomegaly and steatosis. Gallbladder and biliary system: Gallbladder is absent. No biliary ductal dilation Pancreas: No ductal dilation. Mild peripancreatic fat stranding. Spleen: Splenomegaly Adrenals: No discrete nodules Kidneys: No solid mass or hydronephrosis. Nonobstructing small left lower pole calculus. Vessels and lymph nodes: The main portal vein is patent. No abdominal aortic aneurysm. No pathologic lymph nodes by size criteria. Portal venous varices are seen. Bowel and peritoneum: Mild proximal wall thickening of the stomach. No bowel obstruction. No pathologic ascites. Colonic diverticula. Mesenteric fat stranding is present. No drainable ascites. Body wall: Small fat containing umbilical and inguinal hernias. Pelvis: Bladder is unremarkable. Prostate is unremarkable. Bones: No acute or suspicious osseous findings. There are degenerative changes. IMPRESSION: Hepatosplenomegaly. Portal venous varices are seen with mesenteric congestion likely portal hypertension. Hepatic steatosis. Mild wall thickening of the distal esophagus and proximal stomach could represent gastroesophagitis versus portal congestion. Peripancreatic fat stranding, correlate lipase. Other findings above. Dictated by: Roberto Carlos Arellano M.D. on 11/18/2024 at 19:24 Approved by: Roberto Carlos Aerllano M.D. on 11/18/2024 at 19:27 [facility] Narrative Medical decision making narrative: Patient was have history of alcohol use/abuse. He does have significant lower extremity edema and also abdominal distention as well. No discomfort. Afebrile. BNP relatively unremarkable. Care turned over to Dr. Stokes at change of shift to follow up and disposition. Dr. Stokes -care of patient is signed out to me by daytime physician, independent review of patient and chart performed by myself. Laboratory work reviewed, hemoglobin dropped, currently 8.6 from 13.2. Patient denying bleeding, symptoms has been ongoing for several months. Likely secondary to volume overload from fluid retention. Platelet count 80. Sodium 134, potassium 3.4, creatinine 0.82, glucose 328, T bili 3.8, AST 96, ALT 36, alk phos 199. BNP 136. CT of the abdomen and pelvis with contrast shows fatty liver with developing portal hypertension. There was note of stranding around the pancreas, lipase is mildly elevated, patient was denying any abdominal pain at this time. While in the emergency department patient requested medications for anxiety. He was given phenobarbital with improvement in symptoms. Extensive conversation had with the patient at bedside. He was advised of his lab and imaging findings as well as the severe effect that alcohol has had on his liver. Patient has not developed ascites yet but has either reached or as close to reaching end-stage liver disease. He was advised to stop drinking alcohol entirely. He does not want to go to detox at this time but is open to receiving resources provided that they accept his insurance. For fluid retention patient will be started on spironolactone and Lasix. He states that he has a primary care doctor that he can follow up with. He was counseled on the importance of close follow up with his primary doctor for further management of his medications. He was also advised to follow up with the GI doctor and a referral phone number has been provided. Discharge Plan Departure Patient Disposition: Home Clinical Impression: Alcohol use disorder, Anemia, Hepatosplenomegaly, Lower extremity edema Instructions: DI for Cirrhosis, DI for Alcohol Use Disorder Activity Restrictions/Additional Instructions: You have evidence of fluid overload, likely from liver injury and early failure. The CT obtained of your abdomen showed beginning changes of cirrhosis. It was extremely important that you stop using alcohol. The Librium provided can help you to taper your alcohol use to prevent cravings. In addition substance use resources is provided in your paperwork. To remove the fluid from your body you will need to take the furosemide and spironolactone. Follow up with a GI doctor as well as your PCP. A referral number has been provided for you Prescriptions: New chlordiazepoxide HCl 25 mg capsule 25 mg PO DIRECTED Qty: 15 0RF Rx Instructions: Day 1: 50mg q6h Day 2: 25mg q6h Day 3: 25mg q12h Day 4: 25mg at night furosemide [Lasix] 40 mg tablet 40 mg PO DAILY Qty: 30 0RF spironolactone 25 mg tablet 25 mg PO DAILY Qty: 30 0RF No Action pregabalin 75 mg capsule 75 mg PO TID Patient Comments: TAKE ONE CAPSULE BY MOUTH THREE TIMES DAILY Referrals: Sorin Reyes MD [Non-Staff] - Mario Cutler MD [Primary Care Provider] - Stand Alone Forms: Patient Portal/API/Survey ED Sign-out <Bj Forman, DO - Last Filed: 11/25/24 18:04> [facility] Att[facility]: Dr Forman Co-Sign Statement: I was available for consultation during this patient's emergency department visit. This chart is signed by myself for administrative purposes only. I did not have direct contact with this patient during this visit. They were seen independently by the APC.
[2024-11-18 17:28] LABS: Creatine Kinase 88 U/L (55-170)
[2024-11-18 17:29] LABS: Alanine Aminotransferase 36 IU/L (<50); Albumin 3.6 g/dL (3.5-5.0); Albumin Globulin Ratio 0.9 (1.0-2.8); Alkaline Phosphatase 199 U/L (38-126); Aspartate Aminotransferase 96 IU/L (17-59); Bilirubin Conjugated 0.4 md/dL (0.0-0.3); Bilirubin Total 3.8 mg/dL (0.2-1.3); Blood Urea Nitrogen 9 mg/dL (9-20); Calcium 9.2 mg/dL (8.4-10.2); Carbon Dioxide 22 mmol/L (22-32); Chloride 105 mmol/L (98-107); Estimated Glomerular Filt Rate > 60 mL/min (>60); Globulin 4.2 g/dL (1.7-4.1); Glucose 328 mg/dL (70-100); HEMOLYSIS 20 (0-50); Lipase 346 U/L (23-300); Potassium 3.4 mmol/L (3.4-5.1); Sodium 134 mmol/L (137-145); Total Protein 7.8 g/dL (6.3-8.2)
--- NOTE | 2024-11-18 17:30 | PC.NURSE ---
Addendum entered by Jania Wright R.N. 11/18/24 17:34: jaundice* Original Note: Yellow sclera, yellow tinted skin. Pt reports having swelling in abd and lower legs; attempted to cut back drinking by half and take 's HCTZ in attempt to reduce swelling.
[2024-11-18 17:38] LABS: NT-proBNP (BNP-Adult 18+) 136 pg/mL (<125)
[2024-11-18 17:41] LABS: Troponin I 0.032 ng/mL (0.01-0.034)
[2024-11-18 17:44] LABS: Ethanol (ETOH) 36 mg/dL
--- NOTE | 2024-11-18 17:58 | DI.CT.S_ITS ---
PROCEDURE: CT ABDOMEN PELVIS W CON INDICATIONS: ABDOMINAL DISTENSION, ETOH ABUSE TECHNIQUE: After the administration of intravenous contrast, axial sections acquired from the lung bases to the pubic symphysis. Coronal and sagittal reformats were performed. For radiation dose reduction, the following was used: automated exposure control, adjustment of mA and/or kV according to patient size. COMPARISON: None. FINDINGS: Image quality: Diagnostic Lower chest: No basal opacities identified. Mild nonspecific distal esophageal wall thickening. Normal heart size. Liver: Hepatomegaly and steatosis. Gallbladder and biliary system: Gallbladder is absent. No biliary ductal dilation Pancreas: No ductal dilation. Mild peripancreatic fat stranding. Spleen: Splenomegaly Adrenals: No discrete nodules Kidneys: No solid mass or hydronephrosis. Nonobstructing small left lower pole calculus. Vessels and lymph nodes: The main portal vein is patent. No abdominal aortic aneurysm. No pathologic lymph nodes by size criteria. Portal venous varices are seen. Bowel and peritoneum: Mild proximal wall thickening of the stomach. No bowel obstruction. No pathologic ascites. Colonic diverticula. Mesenteric fat stranding is present. No drainable ascites. Body wall: Small fat containing umbilical and inguinal hernias. Pelvis: Bladder is unremarkable. Prostate is unremarkable. Bones: No acute or suspicious osseous findings. There are degenerative changes. IMPRESSION: Hepatosplenomegaly. Portal venous varices are seen with mesenteric congestion likely portal hypertension. Hepatic steatosis. Mild wall thickening of the distal esophagus and proximal stomach could represent gastroesophagitis versus portal congestion. Peripancreatic fat stranding, correlate lipase. Other findings above. Dictated by: Roberto Carlos Arellano M.D. on 11/18/2024 at 19:24 Approved by: Roberto Carlos Arellano M.D. on 11/18/2024 at 19:27
[2024-11-18] MEDS: THIAMINE 200 MG in SODIUM CHLORIDE 0.9% 100 ML 408 MG IV (18:07)
[2024-11-18] MEDS: FOLIC ACID 1 MG TABLET PO (18:07)
--- NOTE | 2024-11-18 18:17 | CM.SWNOTE ---
ED UNIFORM ROOM ATTENDANT Note: Patient is a 49yo male, resident of [place], presented to the ED for concerns of lower extremity edema and abdominal distention. Patient has a hx of ETOH use and has been seen by this UNIFORM ROOM ATTENDANT for his ETOH use (previous referral made to [facility]). Pt's PCP is Dr. Mario Cutler and insurance is [facility] [employer] and Medicaid. UNIFORM ROOM ATTENDANT reviewed EMR and discussed pt with ED staff. Per firer powerhouse, pt discussed housing insecurity as he is not sure about how to pay for his rent. ED UNIFORM ROOM ATTENDANT entered room and introduced self and role. 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 ED UNIFORM ROOM ATTENDANT discussed housing resources and provided sheet with contacts to pt, highlighting [employer] [facility] - discussing their rental assistance program. Pt appreciative. Pt denied any other social concerns to discuss with this UNIFORM ROOM ATTENDANT. UNIFORM ROOM ATTENDANT discussed with ED staff that pt arrived via EMS and would likely need taxi assistance for after-hours transport. Plan: Medical assessment to continue in the ED, ED staff following for coordination of dc plans. Miriam Cutler, MEDICAL IMAGING TECH
[2024-11-18] MEDS: PHENobarbital 65 MG/ML VIAL 260 MG IV ×2 (18:28→19:18)
--- NOTE | 2024-11-18 19:30 | PC.NURSE ---
Assumed care of pt at 1900. Pt a&ox4. States that he is feeling very shakey and anxious. Denies visual/auditory hallucinations. States that he feels some numbness and tingling in his feet but states that he has neuropathy. Bilateral LE swelling & gooseflesh skin observed.
[2024-11-18] MEDS: FUROSEMIDE 40 MG/4 ML VIAL IV (19:45)
[2024-11-18] MEDS: chlordiazePOXIDE 25 MG CAPSULE 50 MG PO (19:45)
== END 2024-11-18 20:08 | disposition home or self-care (01) ==
PROVIDERS: Emergency Provider Emergency Medicine; PCP Family Medicine
DX: F10.90 Alcohol use, unspecified, uncomplicated (principal); D64.9 Anemia, unspecified; R16.2 Hepatomegaly with splenomegaly, not elsewhere classified; R60.0 Localized edema; R14.0 Abdominal distension (gaseous); F41.9 Anxiety disorder, unspecified; Y90.1 Blood alcohol level of 20-39 mg/100 ml
CPT/HCPCS: 74177; 80048; 80076; 80320; 82550; 83690; 83880; 84484; 85025; 93005; 96365; 96375; 96376; 99284; J1940; J2560; Q9967

== ENCOUNTER 2024-11-22 13:14 | Inpatient (IN) | payer OTHER, SELFPAY ==
[2024-11-22] VITALS (14 sets, daily range): BP systolic 120–157; BP diastolic 57–85; PULSE 110–127; RESP 16–22; TEMP 36.7–37.4; O2SAT 97–100; BMI 31.5
--- NOTE | 2024-11-22 13:32 | EKG_ITS ---
[place] [id number] [place] [id number] Test Date: 2024-11-22 Pat Name: Eric Fontenot Department: 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
[2024-11-22 13:39] LABS: INR 1.3 (0.9-1.3); Prothrombin Time 14.5 SECONDS (9.4-12.5)
[2024-11-22 13:42] LABS: Add Manual Diff / Slide Review NO; Basophils Absolute Auto 0 /uL (0-100); Basophils Percent Auto 0.4 % (0-2); Eosinophils Absolute Auto 200 /uL (0-450); Eosinophils Percent Auto 2.6 % (2-4); Hematocrit 26.1 % (41-53); Hemoglobin 8.8 g/dL (13.5-17.5); Lymphocytes Absolute Auto 1300 /uL (1100-4500); Lymphocytes Percent Auto 15.3 % (25-40); Mean Corpuscular HGB Conc 33.7 % (30-36); Mean Corpuscular Volume 94.9 fL (80-100); Monocytes Absolute Auto 1300 /uL (0-900); Monocytes Percent Auto 15.4 % (3-14); Neutrophils Absolute Auto 5800 /uL (1500-7000); Neutrophils Percent Auto 66.3 % (50-75); Platelet Count 95 X10^3/uL (150-400); Red Blood Cell Count 2.75 X10^6/uL (4.5-5.9); Red Cell Distribution Width 17.9 % (11.6-14.8); White Blood Cell Count 8.7 X10^3/uL (4.5-11.0)
[2024-11-22 13:46] LABS: Alanine Aminotransferase 31 IU/L (<50); Albumin 3.8 g/dL (3.5-5.0); Albumin Globulin Ratio 0.9 (1.0-2.8); Alkaline Phosphatase 207 U/L (38-126); Aspartate Aminotransferase 81 IU/L (17-59); BUN Creatinine Ratio 12.5 (6-22); Bilirubin Total 3.6 mg/dL (0.2-1.3); Blood Urea Nitrogen 11 mg/dL (9-20); Calcium 8.8 mg/dL (8.4-10.2); Carbon Dioxide 21 mmol/L (22-32); Chloride 103 mmol/L (98-107); Estimated Glomerular Filt Rate > 60 mL/min (>60); Globulin 4.2 g/dL (1.7-4.1); Glucose 240 mg/dL (70-100); HEMOLYSIS < 15 (0-50); Lipase 294 U/L (23-300); Potassium 3.3 mmol/L (3.4-5.1); Sodium 137 mmol/L (137-145)
--- NOTE | 2024-11-22 13:57 | PC.NURSE ---
Pt reports he was here recently for B/L LE swelling. was placed on lasix and was DC'd home. Arrives today reporting his swelling has decreased immensely however the pains in his legs are increasing and its causing inability to ambulate well. Noted to have non pitting edema and redness in the lower legs. denies CP SOB. HR noted to be 114 while resting. Pt is heavy drinker and per EMS has drank 4 beers already this morning. Pt states he is cutting back. normally drinks about 12-15 beers daily. Sclera is noted to be jaundiced. Pt denies abd pain at this time. 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
[2024-11-22 15:52] LABS: Bacteria Urine None Seen; RBC Urine 1-5/HPF (0-5/HPF); Squamous Epithelial Cell Urine None Seen (0-5/HPF); Urine Volume 10mL (spun); WBC Urine None Seen (0-5/HPF)
[2024-11-22 15:53] LABS: Culture Indicated Urine Cult Not Indicated
--- NOTE | 2024-11-22 16:25 | PC.NURSE ---
ambulated to and from the bathroom with walker and back to the stretcher.
--- NOTE | 2024-11-22 17:08 | ED_ITS ---
HPI - Extremity Injury (Lower) General Chief Complaint: Extremity Injury, Lower Stated Complaint: bilateral leg pain Time Seen by Provider: 11/22/24 16:59 History of Present Illness HPI Narrative: 49-year-old male with alcoholic liver disease, history of bilateral lower extremity edema, ongoing alcohol use with last drink earlier today, seen here 2 days ago recalling IV Lasix diuresis, that is making him pee frequently, taking oral Lasix as well, but having persisting bilateral lower extremity pain, some redness today. No fevers. Related Data Home Medications Medication Instructions Recorded Confirmed doxycycline monohydrate 50 mg 50 mg PO DAILY 09/26/22 capsule pregabalin 75 mg capsule 75 mg PO TID 09/26/22 09/26/22 tramadol 50 mg tablet 50 mg PO DAILY 09/26/22 09/26/22 Previous Rx's Medication Instructions Recorded propranolol 10 mg tablet 10 mg PO TIDP PRN anxiety #90 tabs 04/30/18 lisinopril 20 mg tablet 20 mg PO QDAY #90 tabs 03/16/19 chlordiazepoxide HCl 25 mg capsule 25 mg PO TID PRN alcohol 06/21/23 withdrawal #10 caps chlordiazepoxide HCl 25 mg capsule 25 mg PO DIRECTED #15 caps 11/18/24 furosemide 40 mg tablet (Lasix) 40 mg PO DAILY #30 tabs 11/18/24 spironolactone 25 mg tablet 25 mg PO DAILY #30 tabs 11/18/24 Allergies Allergy/AdvReac Type Severity Reaction Status Date / Time No Known Drug Allergies Allergy Verified 09/26/22 13:53 Patient History Medical History Decreased libido Erectile dysfunction Alcohol abuse (~2017) Low back pain (Unknown) Polyneuropathy (Unknown) Acne (Unknown) Hypertension (2004) Essential hypertension (09/12/16) Surgical History Hx of cholecystectomy (2001) Family History Grandmother Mental health problem Grandfather Cancer Grandmother Cancer Social History household members: spouse Smoking Status: Former smoker Tobacco: How many years used: 1 Smokeless tobacco user: chewing tobacco (many, many years) alcohol intake: current substance use type: does not use Smoking Status: Former smoker alcohol intake frequency: 0-2 drinks per day Alcohol type: beer Exam Narrative Exam Narrative: GENERAL: Well-developed patient, in mild distress. HEAD: Atraumatic. Normocephalic. EYES: Pupils equal round and reactive. Extraocular motions intact. Scleral icterus present. No injection or drainage. ENT: Nose without bleeding, purulent drainage. Throat without erythema, tonsillar hypertrophy or exudate. Airway patent. NECK: Trachea midline. Non tender CARDIOVASCULAR: Regular rate and rhythm without murmurs, gallops, or rubs. RESPIRATORY: Clear to auscultation. Breath sounds equal bilaterally. No wheezes, rales, or rhonchi. GASTROINTESTINAL: Abdomen soft, non-tender, nondistended. EXTREMITIES: Bilateral lower extremity swelling slight decreased from before, redness bilaterally mid distal foreleg right side, extending medial thigh right leg. BACK: Nontender without deformity or crepitance. No flank tenderness. NEURO: AOx3. Nonfocal gross motor exam SKIN: No rash or erythema of visible areas Initial Vital Signs Initial Vital Signs: Vital Signs Temperature 98.4 F 11/22/24 13:25 Pulse Rate 122 H 11/22/24 13:25 Respiratory Rate 16 11/22/24 13:25 Blood Pressure 134/84 11/22/24 13:25 Pulse Oximetry 99 11/22/24 13:25 Oxygen Delivery Method Room Air 11/22/24 13:25 Course Orders Ordered: ED Orders 11/22/24 13:20 Complete Blood Count AUTO DIFF Stat Comprehensive Metabolic Panel Stat Lipase Stat Prothrombin Time INR Stat 11/22/24 13:32 EKG-12 Lead Stat 11/22/24 14:59 Urine Microscopic Stat 11/22/24 17:27 Ammonia (NH3) Stat Blood Culture Stat Ethanol (ETOH) Stat Calcium Carbonate (Calcium Carbonate 500 Mg Tab) 1,000 mg PO Q4HR PRN PRN Reason: Dyspepsia Chlordiazepoxide HCl (Chlordiazepoxide 25 Mg Capsule) 25 mg PO TID [facility] Last Admin: 11/22/24 18:49 Dose: 25 mg Documented By: NB Folic Acid (Folic Acid 1 Mg Tablet) 1 mg PO DAILY [facility] Ceftriaxone Sodium 2,000 mg/ (Sodium Chloride) 100 mls @ 200 mls/hr IV Q24H [facility] Lorazepam (Lorazepam 1 Mg Tablet) 0 mg PO CIWAPRN PRN; Protocol PRN Reason: Alcohol Withdrawal Multivitamins (Multivitamin 1 Tablet) 1 tab PO DAILY [facility] Naloxone HCl (Naloxone 0.4 Mg/Ml Vial) 0.2 mg IV Q2MIN PRN PRN Reason: Opiate Reversal Ondansetron HCl (Ondansetron 4 Mg/2 Ml Inj) 4 mg IV NOW PRN PRN Reason: Nausea And Vomiting Ondansetron HCl (Ondansetron 4 Mg Odt) 4 mg PO NOW PRN PRN Reason: Nausea And Vomiting Ondansetron HCl (Ondansetron 4 Mg/2 Ml Inj) 4 mg IV Q8HR PRN PRN Reason: Nausea And Vomiting Oxycodone HCl (Oxycodone Ir 5 Mg Tablet) 5 mg PO Q3H PRN PRN Reason: Pain, Moderate (4-6) Last Admin: 11/22/24 18:47 Dose: 5 mg Documented By: JO ANN Thiamine HCl (Thiamine 100 Mg Tablet) 100 mg PO DAILY [facility] Stop: 11/26/24 09:01 Discontinued Medications Furosemide (Furosemide 40 Mg/4 Ml Vial) 20 mg IV NOW ONE Stop: 11/22/24 17:15 Last Admin: 11/22/24 17:47 Dose: 20 mg Documented By: SEB Ceftriaxone Sodium 1,000 mg/ (Sodium Chloride) 100 mls @ 200 mls/hr IV NOW ONE Stop: 11/22/24 17:13 Last Admin: 11/22/24 17:47 Dose: 200 mls/hr Documented By: SEB Influenza Virus Vaccine (Influenza Vaccine Qiv 0.5 Ml Syringe) 0.5 ml IM .ONCE ONE Stop: 11/22/24 18:31 Potassium Chloride (Potassium Chloride 20 Meq/15 Ml Udc) 40 meq PO NOW ONE Stop: 11/22/24 17:18 Last Admin: 11/22/24 17:47 Dose: 40 meq Documented By: SEB Vital Signs Vital signs: Vital Signs - 8 hr 11/22/24 13:25 11/22/24 14:28 11/22/24 14:29 Temperature 98.4 F Pulse Rate 122 H 118 H Respiratory Rate 16 Blood Pressure 134/84 120/57 L Pulse Oximetry 99 99 Oxygen Delivery Method Room Air 11/22/24 14:29 11/22/24 14:30 11/22/24 15:03 Temperature Pulse Rate 117 H 117 H Respiratory Rate Blood Pressure Pulse Oximetry 98 98 100 Oxygen Delivery Method Room Air 11/22/24 15:04 11/22/24 15:04 11/22/24 15:30 Temperature Pulse Rate 115 H Respiratory Rate Blood Pressure 142/67 H 142/63 H Pulse Oximetry 99 Oxygen Delivery Method 11/22/24 15:30 11/22/24 16:00 11/22/24 16:00 Temperature Pulse Rate 118 H 119 H Respiratory Rate Blood Pressure 134/73 Pulse Oximetry 99 100 Oxygen Delivery Method Room Air 11/22/24 16:30 11/22/24 17:00 Temperature Pulse Rate 116 H 110 H Respiratory Rate 17 21 Blood Pressure Pulse Oximetry 100 100 Oxygen Delivery Method MDM - Extremity Injury (Lower) Lab Data Attestation: I reviewed the patient's lab results. Lab results narrative: White blood cell count 8700, hemoglobin 8.8, platelets 04287. Sodium 137, potassium 3.3 low, serum CO2 21 mildly low, chloride 103, BUN 11, creatinine 0.88. Glucose 240. Alkaline phosphatase 207. T bili 3.6. AST 81, ALT 31. Lipase 294. 11/22/24 13:20 11/22/24 13:20 Labs: Lab Results 11/22/24 11/22/24 Range/Units 13:20 14:59 WBC 8.7 (4.5-11.0) X10^3/uL RBC 2.75 L (4.5-5.9) X10^6/uL Hgb 8.8 L (13.5-17.5) g/dL Hct 26.1 L (41-53) % MCV 94.9 (80-100) fL MCH 32.0 (26-34) PG MCHC 33.7 (30-36) % RDW 17.9 H (11.6-14.8) % Plt Count 95 L (150-400) X10^3/uL Neut % (Auto) 66.3 (50-75) % Lymph % (Auto) 15.3 L (25-40) % [place] % (Auto) 15.4 H (3-14) % Eos % (Auto) 2.6 (2-4) % Baso % (Auto) 0.4 (0-2) % Neut # (Auto) 5800 (5755-7140) /uL Lymph # (Auto) 1300 (9002-4118) /uL [place] # (Auto) 1300 H (0-900) /uL Eos # (Auto) 200 (0-450) /uL Baso # (Auto) 0 (0-100) /uL PT 14.5 H (9.4-12.5) SECONDS INR 1.3 (0.9-1.3) Sodium 137 (137-145) mmol/L Potassium 3.3 L (3.4-5.1) mmol/L Chloride 103 (98-107) mmol/L Carbon Dioxide 21 L (22-32) mmol/L BUN 11 (9-20) mg/dL Creatinine 0.88 (0.66-1.25) mg/dL Estimated GFR > 60 (>60) mL/min BUN/Creatinine Ratio 12.5 (6-22) Glucose 240 H (70-100) mg/dL Calcium 8.8 (8.4-10.2) mg/dL Total Bilirubin 3.6 H (0.2-1.3) mg/dL AST 81 H (17-59) IU/L ALT 31 (<50) IU/L Alkaline Phosphatase 207 H (38-126) U/L Total Protein 8.0 (6.3-8.2) g/dL Albumin 3.8 (3.5-5.0) g/dL Globulin 4.2 H (1.7-4.1) g/dL Albumin/Globulin Ratio 0.9 L (1.0-2.8) Lipase 294 (23-300) U/L Urine RBC 1-5/hpf (0-5/HPF) Urine WBC None seen (0-5/HPF) Ur Squamous Epith Cells None seen (0-5/HPF) Urine Bacteria None seen (None) Ur Culture Indicated? Cult not indicated Vol Urine Centrifuged 10ml (spun) Urine Dip Bedside Urine Glucose Negative Bedside Urine Bilirubin - Negative Bedside Urine Ketone - Negative Urine Specific [place] 1.000 Bedside Urine Occult Blood ++ Bedside Urine pH 6.0 Bedside Urine Protein - Negative Bedside Urine Urobilinogen - Negative Bedside Urine Nitrite - Negative Bedside Urine Leukocytes - Negative Esterase ECG Data Attestation: I personally reviewed and interpreted this ECG as follows: Interpretation: Narrow complex regular rhythm, possible small P waves, likely sinus tachycardia with rate of 115. No obvious ST segment elevation or depression changes. QRS 86, QTC 467. MDM Narrative Medical decision making narrative: 49-year-old male with history of alcoholic liver disease, last drink earlier today, recently seen for lower extremity edema, given Lasix, says that he is taking his oral Lasix but continues to drink alcohol as well, now with increasing leg pain, some redness as well. No injury or falls. Tachycardia noted. Bilateral lower extremity edema with redness left-sided greater than right side. Blood cultures requested. IV Rocephin dose. White blood cell count not elevated, liver functions abnormal but similar to values yesterday. Potassium low, IV and oral repletion initiated. IV Lasix 20 mg for now. Consider admission, persisting tachycardia, infection, last drink earlier today, not obviously in withdrawal now but at risk. Patient agreeable to admission. Case discussed with hospitalist Dr. George, accepts patient for admission. Discharge Plan Departure Patient Disposition: Admitted as Observation Clinical Impression: Alcohol abuse, Alcoholic liver disease, Hypokalemia, Bilateral lower leg cellulitis, Swelling of both lower extremities, Tachycardia Admit Date/Time: 11/22/24 17:25 Admit Provider: Otto George
--- NOTE | 2024-11-22 17:31 | PM.HP.1 ---
History of Present Illness History of Present Illness Date Patient Seen: 11/22/24 Chief complaint: bilateral leg pain Narrative: The patient was a 49-year-old male with a history of alcohol use disorder and ongoing alcohol use. He was drinking today but came in because of persistent and worsening bilateral red and tender legs. He was seen several days ago in the ER and discharged with oral medications. The patient has not been taking his medications, he denies any fevers, or chills. In the ED he was found to have alcohol on breath, and evidence of fairly red, warm, and swollen legs. There is a concern for worsening cellulitis and medication noncompliance. He has been drinking consistently, at home. His also drinks. He notes he was unkempt because he was not been taking care of himself or bathing. He was a dense neuropathy as well. Both legs are red, and sore. He was given diuretics the other day in urgent care and has been taking these. It was unclear if he was elevated his legs. Both legs are relatively painful. He was shaking today and states he would 2 drinks earlier today. He was never been in an alcohol rehabilitation program or had sustained sobriety. He does realize that alcohol is killing him, and does want to try to make a change. He denies recent URI symptoms, including fevers, chills, or cough. No diarrhea or vomiting. No abdominal pain. [facility] Medical History Decreased libido Erectile dysfunction Alcohol abuse (~2017) Low back pain (Unknown) Polyneuropathy (Unknown) Acne (Unknown) Hypertension (2004) Essential hypertension (09/12/16) Surgical History Hx of cholecystectomy (2001) Family History Grandmother Mental health problem Grandfather Cancer Grandmother Cancer Social History household members: spouse Smoking Status: Former smoker Tobacco: How many years used: 1 Smokeless tobacco user: chewing tobacco (many, many years) alcohol intake: current substance use type: does not use Meds Home Medications and Allergies Home Medications Medication Instructions Recorded Confirmed Type propranolol 10 mg tablet 10 mg PO TIDP PRN anxiety #90 tabs 04/30/18 Rx lisinopril 20 mg tablet 20 mg PO QDAY #90 tabs 03/16/19 09/26/22 Rx doxycycline monohydrate 50 mg 50 mg PO DAILY 09/26/22 History capsule pregabalin 75 mg capsule 75 mg PO TID 09/26/22 09/26/22 History tramadol 50 mg tablet 50 mg PO DAILY 09/26/22 09/26/22 History chlordiazepoxide HCl 25 mg capsule 25 mg PO TID PRN alcohol 06/21/23 Rx withdrawal #10 caps chlordiazepoxide HCl 25 mg capsule 25 mg PO DIRECTED #15 caps 11/18/24 Rx furosemide 40 mg tablet (Lasix) 40 mg PO DAILY #30 tabs 11/18/24 Rx spironolactone 25 mg tablet 25 mg PO DAILY #30 tabs 11/18/24 Rx Allergies Allergy/AdvReac Type Severity Reaction Status Date / Time No Known Drug Allergies Allergy Verified 09/26/22 13:53 Review of Systems Review of Systems Narrative: All else reviewed and otherwise unremarkable except as noted in the history and physical. Exam Vital Signs (past 8 hours): - 11/22/24 13:25 11/22/24 14:28 11/22/24 14:29 Temperature 98.4 F Pulse Rate 122 H 118 H Respiratory Rate 16 Blood Pressure 134/84 120/57 L Pulse Oximetry 99 99 Oxygen Delivery Method Room Air 11/22/24 14:29 11/22/24 14:30 11/22/24 15:03 Temperature Pulse Rate 117 H 117 H Respiratory Rate Blood Pressure Pulse Oximetry 98 98 100 Oxygen Delivery Method Room Air 11/22/24 15:04 11/22/24 15:04 11/22/24 15:30 Temperature Pulse Rate 115 H Respiratory Rate Blood Pressure 142/67 H 142/63 H Pulse Oximetry 99 Oxygen Delivery Method 11/22/24 15:30 11/22/24 16:00 11/22/24 16:00 Temperature Pulse Rate 118 H 119 H Respiratory Rate Blood Pressure 134/73 Pulse Oximetry 99 100 Oxygen Delivery Method Room Air Oxygen Delivery Method Room Air Narrative Exam Narrative: NAD, alert and oriented, fluent speech, anxious. Unkempt, malodorous, shaking. Normocephalic skull, EOMI, anicteric sclera, symmetric pupils. Oropharynx unremarkable, no droop. Neck supple, midline trachea, no adenopathy. Lungs clear, normal rate and effort. Heart regular, no murmur gallop or rub. Abdomen is soft, non distended and non tender. Extremities are both red and swollen. They are also warm to touch below the knees. Skin is free of rash or lesions. Feet: The right foot is notable for superficial ulceration below the great toe and a transdermal ulcer about the size of a dime at the base of the 5th digit. Joints are not swollen or deformed. Judgment appears to be abnormal. Objective ECG Impression: Accelerated Junctional rhythm with occasional premature ventricular complexes Cannot rule out Anterior infarct , age undetermined Labs 11/22/24 13:20 11/22/24 13:20 Labs: Laboratory Results - last 24 hr 11/22/24 11/22/24 13:20 14:59 WBC 8.7 RBC 2.75 L Hgb 8.8 L Hct 26.1 L MCV 94.9 MCH 32.0 MCHC 33.7 RDW 17.9 H Plt Count 95 L Neut % (Auto) 66.3 Lymph % (Auto) 15.3 L [place] % (Auto) 15.4 H Eos % (Auto) 2.6 Baso % (Auto) 0.4 Neut # (Auto) 5800 Lymph # (Auto) 1300 [place] # (Auto) 1300 H Eos # (Auto) 200 Baso # (Auto) 0 PT 14.5 H INR 1.3 Sodium 137 Potassium 3.3 L Chloride 103 Carbon Dioxide 21 L BUN 11 Creatinine 0.88 Estimated GFR > 60 BUN/Creatinine Ratio 12.5 Glucose 240 H Calcium 8.8 Total Bilirubin 3.6 H AST 81 H ALT 31 Alkaline Phosphatase 207 H Total Protein 8.0 Albumin 3.8 Globulin 4.2 H Albumin/Globulin Ratio 0.9 L Lipase 294 Urine RBC 1-5/hpf Urine WBC None seen Ur Squamous Epith Cells None seen Urine Bacteria None seen Ur Culture Indicated? Cult not indicated Vol Urine Centrifuged 10ml (spun) Assessment & Plan Assessment & Plan narrative: 1. Leg cellulitis, present on admission and active. This is both legs. 2. Leg edema, present on admission and active. 3. Alcohol use disorder, present on admission and active. 4. High risk for alcohol withdrawal, present on admission and active. 5. Hepatomegaly and steatosis on recent imaging, present on admission and active. 6. Significant skin ulcer and right foot below the 5th digit, present on admission and active. 7. Dense peripheral neuropathy, present on admission and active. Plan: -diuresis and leg elevation -IV antibiotics for cellulitis -Librium t.i.d. -[facility] protocol -wound care consult tomorrow for foot feet. Observation status, anticipate 1 midnight of care. Full resuscitation CAM is November 23. Time-Based Coding :: 35 min spent with patient and on the chart (including review of chart, obtaining history, exam, reviewing outside data, placing orders, documenting exam and treatment plan, and counseling patient) on 11/22. Quality MIPS - Admit I confirm the patient?s Advance Care Plan is present, Code status is documented, Surrogate decision maker is in patient?s record [If Yes, STOP here]: Yes MIPS - Meds 'Current medications' to include all prescriptions, [id number] products, herbals, cannabis/cannabidiol products, and vitamin/mineral/dietary (nutritional) supplements. I have utilized all available resources to obtain, update, or review the patient?s current medications. [If Yes, STOP here]: Yes
[2024-11-22] MEDS: FUROSEMIDE 40 MG/4 ML VIAL 20 MG IV (17:47)
[2024-11-22] MEDS: POTASSIUM CHLORIDE 20 MEQ/15 ML UDC 40 MEQ PO (17:47)
[2024-11-22] MEDS: cefTRIAXone 1,000 MG in SODIUM CHLORIDE 0.9% 100 ML 200 MG IV (17:47)
[2024-11-22 18:03] LABS: Ammonia (NH3) 20 umol/L (9-30); Ethanol (ETOH) 44 mg/dL
[2024-11-22] MEDS: OXYCODONE IR 5 MG TABLET PO ×2 (18:47→23:58)
[2024-11-22] MEDS: chlordiazePOXIDE 25 MG CAPSULE PO ×2 (18:49→23:58)
--- NOTE | 2024-11-22 19:38 | PC.NURSE ---
Addendum entered by Shavonne Nolan R.N. 11/22/24 19:44: 1935 Flu vaccine ordered per protocol and patient request however, vaccine not given. Patient pending blood cultures. Patient aware. Patient to speak to MD in AM regarding vaccine administration request. Original Note: 1814 Patient arrived to unit. Able to BETANCOURT. Pictures taken to BLE, redness to BLE noted. Patient AAO x's 3. Numbness noted to BLE. Patient jaundice. Abdomen round and firm. Call light within reach and bed in lowest position. Patient set up in bed with meal tray. 1844 Patient complaining of pain to BLE. Pain medication administered. 1929 Report given to nightshift RN. Plan of care discussed.
[2024-11-22 20:26] LABS: MRSA (Nasal) PCR NOT DETECTED (Not Detect)
[2024-11-22] MEDS: NICOTINE 21 MG PATCH TOP (21:58)
--- NOTE | 2024-11-23 00:11 | PC.NURSE ---
hourly shift: Patient AxOx4, CIWA scores ranging between 4-5. Last known drink 11/22. Patient states he chews tobacco constantly, nicotine patch requested and placed on VENANCIO. Reports moderate pain in BLE, medicated as ordered with good effect. Patient is tachycardic in 120's at rest; denies chest pain, nausea, SOB. Reports some dizziness when standing too fast. Notified MD, tele placed. Patient oriented to call-light, fall precautions in place. Seizure pads refused by patient. Plan of care ongoing.
[2024-11-23 04:00] VITALS: BP 123/58; PULSE 119; RESP 20; TEMP 37.4; O2SAT 99
--- NOTE | 2024-11-23 07:43 | PM.PN.1 ---
Subjective Subjective Interval history: Summary: 49-year-old with alcohol use disorder presents with leg swelling, possible cellulitis, and a right transdermal foot ulcer. S: Feels little bit better today. He was somewhat lethargic. No shakes. He denies nausea, or vomiting. Less foot pain. His legs are still red. Exam Vital Signs (past 8 hours): - 11/23/24 04:00 Temperature 99.3 F Pulse Rate 119 H Respiratory Rate 20 Blood Pressure 123/58 L Pulse Oximetry 99 Oxygen Flow Rate 0 Oxygen Delivery Method Room Air Oxygen Flow Rate 0 Narrative Exam Narrative: NAD, alert and oriented. Fluent speech. Lungs are clear, normal rate and effort. Heart is regular, no murmur gallop or rub. Abdomen is soft, non distended. Extremities are a markedly swollen and somewhat red left greater than right. He does have an ulceration at the base of the 5th toe in the right foot. Objective Labs 11/22/24 13:20 11/22/24 13:20 Labs: Laboratory Results - last 24 hr 11/22/24 11/22/24 11/22/24 13:20 14:59 17:27 WBC 8.7 RBC 2.75 L Hgb 8.8 L Hct 26.1 L MCV 94.9 MCH 32.0 MCHC 33.7 RDW 17.9 H Plt Count 95 L Neut % (Auto) 66.3 Lymph % (Auto) 15.3 L [place] % (Auto) 15.4 H Eos % (Auto) 2.6 Baso % (Auto) 0.4 Neut # (Auto) 5800 Lymph # (Auto) 1300 [place] # (Auto) 1300 H Eos # (Auto) 200 Baso # (Auto) 0 PT 14.5 H INR 1.3 Sodium 137 Potassium 3.3 L Chloride 103 Carbon Dioxide 21 L BUN 11 Creatinine 0.88 Estimated GFR > 60 BUN/Creatinine Ratio 12.5 Glucose 240 H Calcium 8.8 Total Bilirubin 3.6 H AST 81 H ALT 31 Alkaline Phosphatase 207 H Ammonia 20 Total Protein 8.0 Albumin 3.8 Globulin 4.2 H Albumin/Globulin Ratio 0.9 L Lipase 294 Urine RBC 1-5/hpf Urine WBC None seen Ur Squamous Epith Cells None seen Urine Bacteria None seen Ur Culture Indicated? Cult not indicated Vol Urine Centrifuged 10ml (spun) Nasal Screen MRSA (PCR) Ethyl Alcohol 44 H 11/22/24 17:38 WBC RBC Hgb Hct MCV MCH MCHC RDW Plt Count Neut % (Auto) Lymph % (Auto) [place] % (Auto) Eos % (Auto) Baso % (Auto) Neut # (Auto) Lymph # (Auto) [place] # (Auto) Eos # (Auto) Baso # (Auto) PT INR Sodium Potassium Chloride Carbon Dioxide BUN Creatinine Estimated GFR BUN/Creatinine Ratio Glucose Calcium Total Bilirubin AST ALT Alkaline Phosphatase Ammonia Total Protein Albumin Globulin Albumin/Globulin Ratio Lipase Urine RBC Urine WBC Ur Squamous Epith Cells Urine Bacteria Ur Culture Indicated? Vol Urine Centrifuged Nasal Screen MRSA (PCR) Not detected Ethyl Alcohol [facility] Medical History Decreased libido Erectile dysfunction Alcohol abuse (~2016) Low back pain (Unknown) Polyneuropathy (Unknown) Acne (Unknown) Hypertension (2004) Essential hypertension (09/12/16) Surgical History Hx of cholecystectomy (2001) Family History Grandmother Mental health problem Grandfather Cancer Grandmother Cancer Social History household members: spouse Smoking Status: Former smoker Tobacco: How many years used: 1 Smokeless tobacco user: chewing tobacco (many, many years) alcohol intake: current substance use type: does not use Assessment & Plan Assessment & Plan narrative: 1. Leg cellulitis, present on admission and active. This is both legs. 2. Leg edema, present on admission and active. 3. Alcohol use disorder, present on admission and active. 4. Alcohol withdrawal, present on admission and active. 5. Hepatomegaly and steatosis on recent imaging, present on admission and active. 6. Significant skin ulcer and right foot below the 5th digit, present on admission and active. 7. Dense peripheral neuropathy, present on admission and active. Plan: -diuresis and leg elevation -IV antibiotics for cellulitis -Librium t.i.d. -CIWA protocol -wound care consult when available for foot feet. Inpatient status, anticipate a 2nd midnight of care. Full resuscitation CAM is November 25 Time-Based Coding :: [TOTAL MINUTES] spent with patient and on the chart (including review of chart, obtaining history, exam, reviewing outside data, placing orders, documenting exam and treatment plan, and counseling patient) on [DATE]. Quality VTE Deep Vein Thrombosis/Pulmonary Embolism Present on Admission: No
[2024-11-23 08:00] VITALS: BP 137/72; PULSE 112; RESP 18; O2SAT 96
[2024-11-23] MEDS: OXYCODONE IR 5 MG TABLET PO ×2 (08:21→14:12)
[2024-11-23] MEDS: THIAMINE 100 MG TABLET PO (08:21)
[2024-11-23] MEDS: MULTIVITAMIN 1 TABLET 1 TAB PO (08:21)
[2024-11-23] MEDS: FOLIC ACID 1 MG TABLET PO (08:21)
[2024-11-23] MEDS: chlordiazePOXIDE 25 MG CAPSULE PO ×3 (08:21→20:35)
[2024-11-23] MEDS: OXYMETAZOLINE NASAL SPRAY 30 ML 2 SPRAYS NASAL (08:23)
--- NOTE | 2024-11-23 11:17 | DIET.CONS ---
Dietary Consultation Note Admission Date: 11/22/2024 17:25 Assessment: 49 y M admitted for cellulitis, edema. RD consulted for alcohol use disorder. Also admitted with skin ulcer, hepatomegaly and steatosis. Met with pt at bedside. Reports in last month has been trying to decrease alcohol intake to 6 drinks/day. But before then was doing 9-15 drinks/day. Reports daily intake of a handful of pecans and 1 (1-person size) frozen meal or ramen cup per day. Reports good appetite currently saying he scarfed down last 2 meals in hospital and had a night time sandwich. Wants to stop drinking. Reports weight gain with leg edema. Ht: 177.8 cm Wt: 99.79 kg (weight same as weight from 06/22/24) BMI: 31.5 UBW: 95-102 kg per pt before edema, 111.584 kg on 11/18/24 (noted edema) Last BM: 11/21/24 (11/22/24 18:12) MNA: 14 Luis Score: 20 Diet: 11/22/24 Dinner General (Regular) Diet Diet Modifications: Labs: RBC 2.75 X10^6/uL (4.5-5.9) L 11/22/24 13:20 Hgb 8.8 g/dL (13.5-17.5) L 11/22/24 13:20 Hct 26.1 % (41-53) L 11/22/24 13:20 Creatinine 0.88 mg/dL (0.66-1.25) 11/22/24 13:20 Nutrition Diagnosis: Moderate chronic Protein Calorie Malnutrition r/t lack of sufficient intake of nutrients with excessive ETOH intake as evidenced by alcohol use disorder with intake of 6-15 alcoholic drinks per day, <75% of estimated protein needs for >1 months per diet recall Interventions: 1. Pt with good appetite now, monitor PO intakes 2. Discussed consistent meals that would be realistic for him/family, starting day with breakfast EER: [id number] kcals (MSJx1.25) 85-105 g protein (1-1.25 g/kg per PCM) Monitoring/Evaluations: po intakes Electronically Signed by: Pretty Robledo 11/23/24 11:17 Clinical Dietitian [address] [address]
[2024-11-23 12:00] VITALS: BP 126/55; PULSE 111; RESP 15; TEMP 36.7; O2SAT 98
[2024-11-23] MEDS: cefTRIAXone 2,000 MG in SODIUM CHLORIDE 0.9% 100 ML 200 MG IV (14:12)
[2024-11-23] MEDS: CALCIUM CARBONATE 500 MG TAB 1000 MG PO (14:31)
--- NOTE | 2024-11-23 15:58 | CM.DANOTE ---
B DCP Assessment note pt is a 49yo M here with bilateral cellulitis and ETOH withdrawal. Previous SI (May 2024 ED, see ED notes for more) with non present during this admission so far. PCP Mario Cutler Payer [employer] and Medicaid. KENNEL ASSISTANT reviewed EMR. no recent admissions but ED visit 11/18 for lower extremity edema and abdominal pain. Additional ED visits May. ED KENNEL ASSISTANT completed assessment, provided OP resources, see their note for more. hx of housing insecurity. Per chart review, pt stressers include caring for spouse and MIL in the home. ED KENNEL ASSISTANT provided resources for [facility] and OP [facility] resources. ([facility] Last ED visit pt needed taxi voucher transport home. Per provider during morning rounds, anticipate here for a few days for IV abx and wound care. Per provider, pt claims drinking 15beers daily normally, down to 6 drinks per day recently. Per RN, CIWAs of 4 throughout the day most recent 1. tremors better today than yesterday. walking to bathroom with walker from home. Per RN, pt has expressed no SI indicators throughout admission. KENNEL ASSISTANT unable to meet with pt today due to triaging needs. P: anticipate here for a few days for IV abx and MOC pending for wounds on feet. KENNEL ASSISTANT will f/u with ETOH resources/housing/basic needs resources as needed. CM team will continue to follow closely REE Crawford Discharge Planning/Care Management CM Discharge Assessment Start: 11/23/24 15:55 Freq: Status: Active Protocol: Document 11/23/24 15:56 (Rec: 11/23/24 15:58 [id number]) Discharge Planning Assessment Assigned Digital Measurement Advisor REE Farley DPOA/Assigned Designee Name Cheri, spouse Contact Information [phone] Advance Directives? No History Provided By Patient Comment ED visit 11/18/24 Prior Living Arrangements Apartment/Condo Household Members spouse Independent with ADL's Yes Is patient alert and oriented? Yes DME Already Rented / Owned FWW / Walker Discharge Plan Home Referrals Initiated None needed Review Status In Process Please Provide Date Initial DC 11/23/24 Assessment Was Performed Next Review Type Continued Stay Review
[2024-11-23 16:00] VITALS: BP 123/60; PULSE 107; RESP 12; TEMP 36.8; O2SAT 98
[2024-11-23] MEDS: PREGABALIN 75 MG CAPSULE PO ×2 (17:13→20:35)
[2024-11-23] MEDS: ENOXAPARIN 40 MG/0.4 ML SYRINGE SUBCUT (17:13)
[2024-11-23 20:00] VITALS: BP 127/71; PULSE 118; RESP 18; TEMP 37.1; O2SAT 100
[2024-11-23] MEDS: diphenhydrAMINE 25 MG TABLET PO (20:35)
[2024-11-24 04:00] VITALS: BP 116/58; PULSE 113; RESP 18; TEMP 37; O2SAT 98
[2024-11-24 06:07] LABS: BUN Creatinine Ratio 13.2 (6-22); Blood Urea Nitrogen 12 mg/dL (9-20); Calcium 8.6 mg/dL (8.4-10.2); Carbon Dioxide 27 mmol/L (22-32); Chloride 101 mmol/L (98-107); Estimated Glomerular Filt Rate > 60 mL/min (>60); Glucose 137 mg/dL (70-100); HEMOLYSIS < 15 (0-50); Potassium 3.6 mmol/L (3.4-5.1); Sodium 130 mmol/L (137-145)
[2024-11-24 08:00] VITALS: BP 120/64; PULSE 111; RESP 18; TEMP 36.6; O2SAT 100
[2024-11-24] MEDS: PREGABALIN 75 MG CAPSULE PO ×3 (08:32→20:38)
[2024-11-24] MEDS: chlordiazePOXIDE 25 MG CAPSULE PO ×3 (08:32→20:38)
[2024-11-24] MEDS: MULTIVITAMIN 1 TABLET 1 TAB PO (08:32)
[2024-11-24] MEDS: FOLIC ACID 1 MG TABLET PO (08:32)
[2024-11-24] MEDS: THIAMINE 100 MG TABLET PO (08:32)
[2024-11-24] MEDS: ENOXAPARIN 40 MG/0.4 ML SYRINGE SUBCUT (08:32)
[2024-11-24] MEDS: guaiFENesin ER 600 MG TAB PO (08:38)
[2024-11-24] MEDS: OXYCODONE IR 5 MG TABLET PO ×2 (08:38→20:50)
--- NOTE | 2024-11-24 11:02 | PM.PN.1 ---
Subjective Subjective Date Patient Seen: 11/24/24 Time Patient Seen: 08:25 Interval history: Summary: 49-year-old with alcohol use disorder presents with leg swelling, possible cellulitis, and a right transdermal foot ulcer. S: He notes increasing swelling and redness on his legs today. Exam Vital Signs (past 8 hours): - 11/24/24 04:00 11/24/24 07:00 11/24/24 08:00 Temperature 98.6 F 98 F Pulse Rate 113 H 111 H Respiratory Rate 18 18 Blood Pressure 116/58 L 120/64 Pulse Oximetry 98 100 Oxygen Delivery Method Room Air Oxygen Flow Rate 0 0 Oxygen Delivery Method Room Air Oxygen Flow Rate 0 Narrative Exam Narrative: NAD, alert and oriented. Fluent speech. Lungs are clear, normal rate and effort. Heart is regular, no murmur gallop or rub. Abdomen is soft, non distended. Extremities are a markedly swollen and erythematous with induration left greater than right. He does have an ulceration at the base of the 5th toe in the right foot. And left 5th MTP pad ulceration. Objective Labs 11/22/24 13:20 11/24/24 04:40 Labs: Laboratory Results - last 24 hr 11/24/24 04:40 Sodium 130 L Potassium 3.6 Chloride 101 Carbon Dioxide 27 BUN 12 Creatinine 0.91 Estimated GFR > 60 BUN/Creatinine Ratio 13.2 Glucose 137 H D Calcium 8.6 PFSH Medical History Acne (Unknown) Alcohol abuse (~2017) Decreased libido Erectile dysfunction Essential hypertension (09/12/16) Hypertension (2004) Low back pain (Unknown) Polyneuropathy (Unknown) Surgical History Hx of cholecystectomy (2001) Family History Grandmother Mental health problem Grandfather Cancer Grandmother Cancer Social History household members: spouse Smoking Status: Former smoker Tobacco: How many years used: 1 Smokeless tobacco user: chewing tobacco (many, many years) alcohol intake: current substance use type: does not use Assessment & Plan Assessment & Plan narrative: 1. Bilateral lower extremity cellulitis, present on admission and active. 2. Leg edema, present on admission and active. 3. Alcohol use disorder, present on admission and active. 4. Alcohol withdrawal, present on admission and improved. 5. Hepatomegaly and steatosis on recent imaging, present on admission and active. 6. Significant skin ulcer and right foot below the 5th digit, left foot 5th MTP pad present on admission and active. 7. Dense peripheral neuropathy, present on admission and active. Plan: -increase diuresis to furosemide 40 mg IV b.i.d. and leg elevation -IV ceftriaxone for cellulitis -foot xrays -wound culture/MRSA screen -Librium t.i.d. -CIWA protocol -wound care consult when available for foot feet. Inpatient status, anticipate a 2nd midnight of care. Full resuscitation CAM is November 25 Quality VTE Deep Vein Thrombosis/Pulmonary Embolism Present on Admission: No IH PROFEE Charge codes Subsequent inpatient/observation care: 38639
--- NOTE | 2024-11-24 11:07 | DI.RAD.S_ITS ---
PROCEDURE: XR FOOT RT 2V INDICATIONS: 5th toe ulcer TECHNIQUE: 2 views of the foot were acquired. COMPARISON: None. FINDINGS: Bones: No fractures or dislocations. Subcortical radiolucencies are noted involving 5th metatarsal head and adjacent 5th proximal phalangeal base, erosion secondary to osteomyelitis cannot be excluded. Soft tissues: Marked soft tissue swelling and edema over dorsal and lateral aspect of right foot is seen particularly adjacent to 5th toe. IMPRESSION: Marked soft tissue swelling over dorsal and lateral aspect of right foot. No abnormal soft tissue calcifications. No subcutaneous emphysema. Right foot osteoarthritis. Subcortical radiolucencies involving 5th metatarsal head and 5th proximal phalangeal base, concerning for developing osteomyelitis involving 5th MTP joint. Dictated by: Jeffry Steiner M.D. on 11/24/2024 at 11:42 Approved by: Jeffry Steiner M.D. on 11/24/2024 at 11:43
--- NOTE | 2024-11-24 11:08 | DI.RAD.S_ITS ---
PROCEDURE: XR FOOT LT 2V INDICATIONS: 5th MTP pad ulcer TECHNIQUE: 2 views of the foot were acquired. COMPARISON: None. FINDINGS: Bones: No fractures or dislocations. Osteoarthritic changes are noted in midfoot and forefoot. Subtle radiolucencies are noted in 5th metatarsal head and adjacent 5th proximal phalangeal base. No suspicious bony lesions. Soft tissues: Marked dorsal left foot soft tissue swelling is seen. No subcutaneous emphysema or abnormal soft tissue calcifications. IMPRESSION: Marked left foot soft tissue swelling. No definite subcutaneous emphysema or abnormal soft tissue calcifications. Osteoarthritic changes in left foot. No acute fracture or dislocation. Subtle radiolucencies involving 5th MTP joint as above, early osteomyelitis cannot be entirely excluded. Dictated by: Jeffry Steiner M.D. on 11/24/2024 at 11:43 Approved by: Jeffry Steiner M.D. on 11/24/2024 at 11:45
[2024-11-24] MEDS: FUROSEMIDE 40 MG/4 ML VIAL IV ×2 (11:41→20:38)
[2024-11-24 12:00] VITALS: BP 129/63; PULSE 110; RESP 19; TEMP 36.8; O2SAT 98
[2024-11-24 13:10] LABS: MRSA (Nasal) PCR NOT DETECTED (Not Detect)
[2024-11-24] MEDS: cefTRIAXone 2,000 MG in SODIUM CHLORIDE 0.9% 100 ML 200 MG IV (15:18)
[2024-11-24 16:00] VITALS: BP 130/61; PULSE 104; RESP 18; TEMP 36.6; O2SAT 98
[2024-11-24 20:00] VITALS: BP 124/62; PULSE 106; RESP 18; TEMP 36.8; O2SAT 100
[2024-11-25 04:00] VITALS: BP 107/60; PULSE 103; RESP 18; TEMP 36.6; O2SAT 98
[2024-11-25 05:45] LABS: Add Manual Diff / Slide Review NO; Basophils Absolute Auto 0 /uL (0-100); Basophils Percent Auto 0.9 % (0-2); Eosinophils Absolute Auto 100 /uL (0-450); Eosinophils Percent Auto 2.6 % (2-4); Hematocrit 24.1 % (41-53); Hemoglobin 8.2 g/dL (13.5-17.5); Lymphocytes Absolute Auto 1300 /uL (1100-4500); Lymphocytes Percent Auto 22.9 % (25-40); Mean Corpuscular HGB Conc 34.2 % (30-36); Mean Corpuscular Hemoglobin 31.7 PG (26-34); Mean Corpuscular Volume 92.8 fL (80-100); Monocytes Absolute Auto 800 /uL (0-900); Monocytes Percent Auto 13.7 % (3-14); Neutrophils Absolute Auto 3300 /uL (1500-7000); Neutrophils Percent Auto 59.9 % (50-75); Platelet Count 99 X10^3/uL (150-400); Red Blood Cell Count 2.59 X10^6/uL (4.5-5.9); Red Cell Distribution Width 18.2 % (11.6-14.8); White Blood Cell Count 5.5 X10^3/uL (4.5-11.0)
[2024-11-25 05:50] LABS: BUN Creatinine Ratio 15.2 (6-22); Blood Urea Nitrogen 14 mg/dL (9-20); Calcium 8.7 mg/dL (8.4-10.2); Carbon Dioxide 28 mmol/L (22-32); Chloride 99 mmol/L (98-107); Estimated Glomerular Filt Rate > 60 mL/min (>60); Glucose 137 mg/dL (70-100); HEMOLYSIS < 15 (0-50); Potassium 3.4 mmol/L (3.4-5.1); Sodium 134 mmol/L (137-145)
[2024-11-25 05:54] LABS: Hemoglobin A1C% w Est Avg Glu 5.5 % (4.0-6.0)
--- NOTE | 2024-11-25 07:49 | P.PN_ITS ---
Subjective Subjective Interval history: Summary: 49-year-old with alcohol use disorder presents with leg swelling, possible cellulitis, and a right transdermal foot ulcer. S: He feels about 50% better, still very lethargic and slow to move. Decreased redness of the left lower extremity. Ulceration persists in the right foot with wound care pending today. Exam Vital Signs (past 8 hours): - 11/25/24 04:00 Temperature 97.9 F Pulse Rate 103 H Respiratory Rate 18 Blood Pressure 107/60 Pulse Oximetry 98 Oxygen Flow Rate 0 Oxygen Delivery Method Room Air Oxygen Flow Rate 0 Narrative Exam Narrative: NAD, alert and oriented. Fluent speech. Lungs are clear, normal rate and effort. Heart is regular, no murmur gallop or rub. Abdomen is soft, non distended. Extremities are with 1+ edema, and less left leg redness. Objective Labs 11/25/24 04:50 11/25/24 04:50 Labs: Laboratory Results - last 24 hr 11/24/24 11/25/24 10:59 04:50 WBC 5.5 RBC 2.59 L Hgb 8.2 L Hct 24.1 L MCV 92.8 MCH 31.7 MCHC 34.2 RDW 18.2 H Plt Count 99 L Neut % (Auto) 59.9 Lymph % (Auto) 22.9 L [place] % (Auto) 13.7 Eos % (Auto) 2.6 Baso % (Auto) 0.9 Neut # (Auto) 3300 Lymph # (Auto) 1300 [place] # (Auto) 800 Eos # (Auto) 100 Baso # (Auto) 0 Sodium 134 L Potassium 3.4 Chloride 99 Carbon Dioxide 28 BUN 14 Creatinine 0.92 Estimated GFR > 60 BUN/Creatinine Ratio 15.2 Glucose 137 H Hemoglobin A1c 5.5 Calcium 8.7 Nasal Screen MRSA (PCR) Not detected [facility] Medical History Decreased libido Erectile dysfunction Alcohol abuse (~2016) Low back pain (Unknown) Polyneuropathy (Unknown) Acne (Unknown) Hypertension (2004) Essential hypertension (09/12/16) Surgical History Hx of cholecystectomy (2001) Family History Grandmother Mental health problem Grandfather Cancer Grandmother Cancer Social History household members: spouse Smoking Status: Former smoker Tobacco: How many years used: 1 Smokeless tobacco user: chewing tobacco (many, many years) alcohol intake: current substance use type: does not use Assessment & Plan Assessment & Plan narrative: 1. Bilateral lower extremity cellulitis (MRSA screen neg), present on admission and improving. 2. Leg edema, present on admission and active. 3. Alcohol use disorder, present on admission and active. 4. Alcohol withdrawal, present on admission and improved. 5. Hepatomegaly and steatosis on recent imaging, present on admission and active. 6. Significant skin ulcer and right foot below the 5th digit, left foot 5th MTP pad present on admission and active. 7. Dense peripheral neuropathy, present on admission and active. Plan: -continue diuresis to furosemide 40 mg IV b.i.d. and leg elevation -IV ceftriaxone (2G) for cellulitis -MRI foot (right) today to R/O deep space or bone infection. -wound culture/MRSA screen -Librium t.i.d. -CIWA protocol -wound care consult when available for foot feet. -discontinue telemetry Inpatient status, anticipate a 2nd midnight of care. Full resuscitation CAM is November 26 Time-Based Coding :: [TOTAL MINUTES] spent with patient and on the chart (including review of chart, obtaining history, exam, reviewing outside data, placing orders, documenting exam and treatment plan, and counseling patient) on [DATE]. Quality VTE Deep Vein Thrombosis/Pulmonary Embolism Present on Admission: No
--- NOTE | 2024-11-25 07:51 | DI.MRI.S_ITS ---
PROCEDURE: MR FOOT RT WO/W CON INDICATIONS: Foot ulcer and infection TECHNIQUE: Noncontrast coronal T1 spin echo and STIR, sagittal T1 spin echo with fat saturation and STIR, axial T1 spin echo and T2 fast spin echo with fat saturation. After the administration of contrast, axial/sagittal/coronal T1 spin echo with fat saturation through the right foot. COMPARISON: [facility], CR, XR FOOT LT 2V, 11/24/2024, 11:07. FINDINGS: Image quality: Fair; motion artifact limits evaluation on some sequences. Enhancement: There is no abnormal mass-like or nodular enhancement. There is no drainable fluid collection. Bone: There is partial loss of the marrow signal at the 5th digit proximal phalanx (3/8 with minimal corresponding marrow edema, and without any significant enhancement. There is a chronic-appearing ununited fracture of the 5th digit proximal phalangeal base (5/38) as well as the 4th digit proximal phalangeal shaft (5/35). There is no acute fracture or dislocation. There are no clear erosive changes at this time. Joint: There is no significant joint effusion in the field of view. Muscle: There is severe fatty atrophy and replacement of the plantar foot musculature with diffuse intramuscular edema (3/12; 4/16). Tendon: The visualized flexor and extensor tendons are within normal limits. Other: Diffuse subcutaneous edema is present throughout the visualized forefoot. There is a soft tissue contour defect/ulcer at the plantar aspect of the 5th MTP joint (3/9). IMPRESSION: 1. Mild osteitis versus early osteomyelitis at the 5th digit proximal phalangeal base, with an adjacent subcutaneous ulcer. 2. Chronic, ununited fractures of the 5th digit proximal phalangeal base and 4th proximal phalangeal shaft. 3. Subacute denervation changes of the plantar foot musculature. 4. No drainable abscess. Dictated by: Jordan Phillips M.D. on 11/25/2024 at 16:03 Approved by: Jordan Phillips M.D. on 11/25/2024 at 16:15
[2024-11-25 08:00] VITALS: BP 102/57; PULSE 108; RESP 20; TEMP 36.9; O2SAT 99
[2024-11-25] MEDS: FOLIC ACID 1 MG TABLET PO (08:27)
[2024-11-25] MEDS: chlordiazePOXIDE 25 MG CAPSULE PO ×3 (08:27→20:47)
[2024-11-25] MEDS: ENOXAPARIN 40 MG/0.4 ML SYRINGE SUBCUT (08:27)
[2024-11-25] MEDS: PREGABALIN 75 MG CAPSULE PO ×3 (08:27→20:47)
[2024-11-25] MEDS: MULTIVITAMIN 1 TABLET 1 TAB PO (08:27)
[2024-11-25] MEDS: FUROSEMIDE 40 MG/4 ML VIAL IV ×2 (08:27→20:47)
[2024-11-25] MEDS: THIAMINE 100 MG TABLET PO (08:27)
[2024-11-25] MEDS: OXYCODONE IR 5 MG TABLET PO ×3 (08:27→20:54)
[2024-11-25] MEDS: POTASSIUM CHLORIDE 20 MEQ TAB 40 MEQ PO (11:05)
[2024-11-25 12:00] VITALS: BP 110/54; PULSE 101; RESP 19; TEMP 36.6; O2SAT 100
--- NOTE | 2024-11-25 15:41 | CM.DPNOTE ---
DCP Cont Reviewed chart. Patient discussed in multidisciplinary rounds. MRI pending to r/o osteo- Rt foot ulcer. Wound care consult requested by Dr George. Patient is not established with wound care. Plan remains discharge home w/sp. Patient would benefit from referral to outpatient wound care clinic closer to MD. CM team following clinical course closely. Patient may benefit from reassessment of need, discussion on accessing basic needs, closer to MD. ASHLIE
[2024-11-25] MEDS: cefTRIAXone 2,000 MG in SODIUM CHLORIDE 0.9% 100 ML 200 MG IV (15:47)
[2024-11-25 20:00] VITALS: BP 114/56; PULSE 103; RESP 18; TEMP 36.6; O2SAT 100
[2024-11-26] VITALS (7 sets, daily range): BP systolic 100–130; BP diastolic 54–75; PULSE 100–118; RESP 15–18; TEMP 36.6–37.3; O2SAT 95–98
--- NOTE | 2024-11-26 00:12 | DI.CT.S_ITS ---
PROCEDURE: CT HEAD/BRAIN WO CON INDICATIONS: fall TECHNIQUE: Noncontrast 4.5 mm thick angled axial sections acquired from the foramen magnum to the vertex, with coronal and sagittal reformats. For radiation dose reduction, the following was used: automated exposure control, adjustment of mA and/or kV according to patient size. COMPARISON: None. FINDINGS: Image quality: Diagnostic. CSF spaces: Basal cisterns are patent. No extra-axial fluid collections. Ventricles are normal in size and shape. Brain: No midline shift. No intracranial masses or hemorrhage. [place]-white matter interface is normal. Skull and face: Calvarium and visualized facial bones are intact, without suspicious lesions. Sinuses: Visualized sinuses and mastoids are clear. IMPRESSION: No acute intracranial pathology. Dictated by: Zayra Hernandez M.D. on 11/26/2024 at 1:02 Approved by: Zayra Hernandez M.D. on 11/26/2024 at 1:02
--- NOTE | 2024-11-26 00:35 | PC.NURSE ---
2350 - Patent fell while attempting to ambulate in room independently. Patient found on ground immediately after fall with bloody nose. Patient states he smacked his face on the ground. Nose only bled briefly. Patient assessed for injury and none were visable. Dr. Bullock notified and head CT ordered. VSS. Patient A&Ox4 and reports feeling no injury. Transported to CT via wheelchair at 0030.
[2024-11-26 05:03] LABS: BUN Creatinine Ratio 16.8 (6-22); Blood Urea Nitrogen 16 mg/dL (9-20); Calcium 8.9 mg/dL (8.4-10.2); Carbon Dioxide 30 mmol/L (22-32); Chloride 97 mmol/L (98-107); Estimated Glomerular Filt Rate > 60 mL/min (>60); Glucose 128 mg/dL (70-100); HEMOLYSIS < 15 (0-50); Potassium 3.4 mmol/L (3.4-5.1); Sodium 130 mmol/L (137-145)
[2024-11-26] MEDS: FUROSEMIDE 40 MG/4 ML VIAL IV ×2 (08:08→20:58)
[2024-11-26] MEDS: chlordiazePOXIDE 25 MG CAPSULE PO ×3 (08:08→20:58)
[2024-11-26] MEDS: FOLIC ACID 1 MG TABLET PO (08:08)
[2024-11-26] MEDS: PREGABALIN 75 MG CAPSULE PO ×3 (08:08→20:58)
[2024-11-26] MEDS: ENOXAPARIN 40 MG/0.4 ML SYRINGE SUBCUT (08:09)
[2024-11-26] MEDS: MULTIVITAMIN 1 TABLET 1 TAB PO (08:09)
[2024-11-26] MEDS: THIAMINE 100 MG TABLET PO (08:09)
--- NOTE | 2024-11-26 08:43 | PM.CN ---
History of Present Illness Consult details Date Patient Seen: 11/25/24 Time Patient Seen: 16:00 Chief complaint: foot wound Reason for consult: wound consult Requesting provider: Otto George Narrative: 49- year old male with PMH of alcohol use disorder, HTN, neuropathy, cellulitis with requested consultation for chronic wound to right 5th digit phalangeal base. Patient is not sure how long the ulcer has been present since he has neuropathy nor does he know of any precipitating event that caused the wound. He denies history with diabetes. Patient had an MRI earlier today, results not yet available to me. He denies having had similar ulcers in past or being in wound care in the past. He is currently on IV antibiotics and has had some improvement to his cellulitis since hospitalization. He is unable to bear weight easily on his wound. He denies drainage from the wound. Meds Home Medications and Allergies Home Medications Medication Instructions Recorded Confirmed Type pregabalin 75 mg capsule 75 mg PO TID 09/26/22 11/23/24 History chlordiazepoxide HCl 25 mg capsule 25 mg PO DIRECTED #15 caps 11/18/24 11/23/24 Rx furosemide 40 mg tablet (Lasix) 40 mg PO DAILY #30 tabs 11/18/24 11/23/24 Rx spironolactone 25 mg tablet 25 mg PO DAILY #30 tabs 11/18/24 11/23/24 Rx Allergies Allergy/AdvReac Type Severity Reaction Status Date / Time No Known Drug Allergies Allergy Verified 09/26/22 13:53 Exam Narrative Exam Narrative: NAD, alert and oriented. Fluent speech. Lungs normal respiratory effort Extremities are with 1+ edema b/l, mild erythema STage 2-3 ulceration at 5th digit phalangeal base approximately @1.2 cm circular full thickness with undermining between 2-5 mm around entire circumference. Muscle visible. No surrounding erythema to periwound. No drainage. No underlying abscess palpated. Objective Labs 11/25/24 04:50 11/26/24 04:29 Labs: Laboratory Results - last 24 hr 11/26/24 04:29 Sodium 130 L Potassium 3.4 Chloride 97 L Carbon Dioxide 30 BUN 16 Creatinine 0.95 Estimated GFR > 60 BUN/Creatinine Ratio 16.8 Glucose 128 H Calcium 8.9 PFSH Medical History (Updated 11/26/24 @ 09:21 by Monica Barbour PA-C) Decreased libido Erectile dysfunction Alcohol abuse (~2017) Low back pain (Unknown) Polyneuropathy (Unknown) Acne (Unknown) Hypertension (2004) Essential hypertension (09/12/16) Surgical History Hx of cholecystectomy (2001) Family History Grandmother Mental health problem Grandfather Cancer Grandmother Cancer Social History household members: spouse Tobacco & Substance Use Smoking Status: Former smoker Tobacco: How many years used: 1 Smokeless tobacco user: chewing tobacco (many, many years) alcohol intake: current substance use type: does not use Assessment & Plan Assessment and plan (1) Chronic foot ulcer: Qualifiers: Laterality: right Non-pressure ulcer stage: with necrosis of muscle Qualified Code(s): L97.513 - Non-pressure chronic ulcer of other part of right foot with necrosis of muscle Status: Acute (2) Swelling of both lower extremities: Status: Acute (3) Neuropathy: Status: None Assessment & Plan narrative: Likely pressure ulcer in setting of neuropathy / edema Wound care provided - cleansed area with wound cleanser, applied EMLA cream and cut back wound edges using scissors forceps to remove detached undermined tissue. Lightly debrided with 2-blade circular scalpel to remove biofilm, slough and subcutaneous nonviable tissue. Instruction for dressing: cover with optifoam secured with gauze QOD or QD depending on amt of drainage Plan to follow-up tmrw to review results MRI May warrant surgical/ID consult if positive for osteo Discussed with patient that I recommend he follow up in wound clinic for care once discharged - will have referral placed Will need off-loading defender boot and could benefit from knee cart if he can manage that. In the meanttime, recommend keeping weight / pressure off wound and leg elevated as much as possible Addendum 11/26/24: MRI with osteitis vs osteomyelitis Plan to revisit patient this afternoon in-patient PROCEDURE: MR FOOT RT WO/W CON INDICATIONS: Foot ulcer and infection TECHNIQUE: Noncontrast coronal T1 spin echo and STIR, sagittal T1 spin echo with fat saturation and STIR, axial T1 spin echo and T2 fast spin echo with fat saturation. After the administration of contrast, axial/sagittal/coronal T1 spin echo with fat saturation through the right foot. COMPARISON: [facility], CR, XR FOOT LT 2V, 11/24/2024, 11:07. FINDINGS: Image quality: Fair; motion artifact limits evaluation on some sequences. Enhancement: There is no abnormal mass-like or nodular enhancement. There is no drainable fluid collection. Bone: There is partial loss of the marrow signal at the 5th digit proximal phalanx (3/8 with minimal corresponding marrow edema, and without any significant enhancement. There is a chronic-appearing ununited fracture of the 5th digit proximal phalangeal base (5/38) as well as the 4th digit proximal phalangeal shaft (5/35). There is no acute fracture or dislocation. There are no clear erosive changes at this time. Joint: There is no significant joint effusion in the field of view. Muscle: There is severe fatty atrophy and replacement of the plantar foot musculature with diffuse intramuscular edema (3/12; 4/16). Tendon: The visualized flexor and extensor tendons are within normal limits. Other: Diffuse subcutaneous edema is present throughout the visualized forefoot. There is a soft tissue contour defect/ulcer at the plantar aspect of the 5th MTP joint (3/9). IMPRESSION: 1. Mild osteitis versus early osteomyelitis at the 5th digit proximal phalangeal base, with an adjacent subcutaneous ulcer. 2. Chronic, ununited fractures of the 5th digit proximal phalangeal base and 4th proximal phalangeal shaft. 3. Subacute denervation changes of the plantar foot musculature. 4. No drainable abscess. Dictated by: Jordan Phillips M.D. on 11/25/2024 at 16:03 Approved by: Jordan Phillips M.D. on 11/25/2024 at 16:15 Time-Based Coding :: [30] minutes spent with patient and on the chart (including review of chart, obtaining history, exam, reviewing outside data, placing orders, documenting exam and treatment plan, and counseling patient) on [11/25/24].
--- NOTE | 2024-11-26 09:00 | PM.PN.1 ---
Subjective Subjective Date Patient Seen: 11/26/24 Time Patient Seen: 08:15 Interval history: Summary: 49-year-old with alcohol use disorder presents with leg swelling, possible cellulitis, and a right transdermal foot ulcer. S: The patient fell last night, striking his face. Head CT was unremarkable. He is waking up now but states he feels better. He notes improving pain and redness in his feet Exam Vital Signs (past 8 hours): - 11/26/24 04:00 11/26/24 08:00 Temperature 99.1 F 98.6 F Pulse Rate 118 H 111 H Respiratory Rate 18 18 Blood Pressure 115/55 L 116/59 L Pulse Oximetry 96 96 Oxygen Flow Rate 0 0 Oxygen Delivery Method Room Air Oxygen Flow Rate 0 Narrative Exam Narrative: NAD, alert and oriented. Fluent speech. HEENT: NC/AT Lungs are clear, normal rate and effort. Heart is regular, no murmur gallop or rub. Abdomen is soft, non distended. Extremities are with 1+ edema, and less left leg redness. Objective Imaging MRI right foot: Radiologist's impression: 1. Mild osteitis versus early osteomyelitis at the 5th digit proximal phalangeal base, with an adjacent subcutaneous ulcer. 2. Chronic, ununited fractures of the 5th digit proximal phalangeal base and 4th proximal phalangeal shaft. 3. Subacute denervation changes of the plantar foot musculature. 4. No drainable abscess. CT scan - head: Radiologist's impression: No acute intracranial pathology. Labs 11/25/24 04:50 11/26/24 04:29 Labs: Laboratory Results - last 24 hr 11/26/24 04:29 Sodium 130 L Potassium 3.4 Chloride 97 L Carbon Dioxide 30 BUN 16 Creatinine 0.95 Estimated GFR > 60 BUN/Creatinine Ratio 16.8 Glucose 128 H Calcium 8.9 PFSH Medical History Acne (Unknown) Alcohol abuse (~2016) Decreased libido Erectile dysfunction Essential hypertension (09/12/16) Hypertension (2004) Low back pain (Unknown) Polyneuropathy (Unknown) Surgical History Hx of cholecystectomy (2001) Family History Grandmother Mental health problem Grandfather Cancer Grandmother Cancer Social History household members: spouse Smoking Status: Former smoker Tobacco: How many years used: 1 Smokeless tobacco user: chewing tobacco (many, many years) alcohol intake: current substance use type: does not use Assessment & Plan Assessment & Plan narrative: 1. Bilateral lower extremity cellulitis (MRSA screen neg), present on admission and improving. 2. Leg edema, present on admission and active. 3. Alcohol use disorder, present on admission and active. 4. Alcohol withdrawal, present on admission and improved. 5. Hepatomegaly and steatosis on recent imaging, present on admission and active. 6. Significant skin ulcer and right foot below the 5th digit, left foot 5th MTP pad with osteomyelitis present on admission and active. 7. Dense peripheral neuropathy, present on admission and active. Plan: -continue diuresis to furosemide 40 mg IV b.i.d. and leg elevation -IV ceftriaxone (2G) for cellulitis x 2 weeks, outpatient ID consultation -PICC line -wound culture/MRSA screen -Librium t.i.d. -CIWA protocol -wound care consult -discontinue telemetry Inpatient status, anticipate a 2nd midnight of care. Full resuscitation CAM is November 26 Quality VTE Deep Vein Thrombosis/Pulmonary Embolism Present on Admission: No IH PROFEE Charge codes Subsequent inpatient/observation care: [id number]
[2024-11-26] MEDS: diphenhydrAMINE 25 MG TABLET PO (10:26)
[2024-11-26] MEDS: POTASSIUM CHLORIDE 20 MEQ TAB 40 MEQ PO (11:38)
[2024-11-26] MEDS: cefTRIAXone 2,000 MG in SODIUM CHLORIDE 0.9% 100 ML 200 MG IV (15:20)
--- NOTE | 2024-11-26 15:52 | CM.DPC ---
DCP Continued: Reviewed EMR and team rounds for pt?s medical status. Per hospitalist, pt recommended for a 2 week course of Cefriaxone 2g Q24H. DCP discussed home infusion plan vs. infusions completed at a SNF, pt preference for home infusion plan is supported by insurance. DCP called [facility] and discussed pt's insurance, it was reported by their intake team that pt's insurance is accepted. Initial referral with signed MD order sent via fax, pending acceptance. Pt in queue to obtain PICC access, [facility] will need PICC measurements faxed to fax#[phone] when available. Plan: Pending PICC placement and home infusion agency acceptance, anticipating dc home with IV abx treatment. CM Team will continue to follow for coordination of discharge plans. ANGELICA Tang
--- NOTE | 2024-11-26 18:50 | DI.RAD.S_ITS ---
PROCEDURE: XR CHEST FOR PICC 1V INDICATIONS: PICC placement COMPARISON: [facility], , CHEST 1 VIEW, 04/09/2017, 18:05. FINDINGS: PICC was placed by the intravenous therapy team from the right side. Fluoroscopic spot film demonstrates the tip of PICC projecting to the area of cavoatrial junction. IMPRESSION: Tip of PICC projects to the area of cavoatrial junction. Dictated by: Vishnu Adams M.D. on 11/26/2024 at 19:16 Approved by: Vishnu Adams M.D. on 11/26/2024 at 19:17
[2024-11-26] MEDS: OXYCODONE IR 5 MG TABLET PO (21:21)
[2024-11-27 00:24] VITALS: BP 112/62; PULSE 106; RESP 19; TEMP 36.4; O2SAT 98
[2024-11-27 04:00] VITALS: BP 120/67; PULSE 102; RESP 19; TEMP 36.9; O2SAT 98
[2024-11-27 04:49] LABS: BUN Creatinine Ratio 15.1 (6-22); Blood Urea Nitrogen 14 mg/dL (9-20); Calcium 9.2 mg/dL (8.4-10.2); Carbon Dioxide 30 mmol/L (22-32); Chloride 98 mmol/L (98-107); Estimated Glomerular Filt Rate > 60 mL/min (>60); Glucose 109 mg/dL (70-100); HEMOLYSIS < 15 (0-50); Potassium 3.3 mmol/L (3.4-5.1); Sodium 132 mmol/L (137-145)
[2024-11-27 08:00] VITALS: BP 116/68; PULSE 105; RESP 18; TEMP 36.7; O2SAT 95
[2024-11-27] MEDS: POTASSIUM CHLORIDE 20 MEQ TAB 40 MEQ PO (08:02)
[2024-11-27] MEDS: ENOXAPARIN 40 MG/0.4 ML SYRINGE SUBCUT (09:00)
[2024-11-27] MEDS: MULTIVITAMIN 1 TABLET 1 TAB PO (09:00)
[2024-11-27] MEDS: PREGABALIN 75 MG CAPSULE PO (09:00)
[2024-11-27] MEDS: FUROSEMIDE 40 MG/4 ML VIAL IV (09:00)
[2024-11-27] MEDS: chlordiazePOXIDE 25 MG CAPSULE PO (09:00)
[2024-11-27] MEDS: FOLIC ACID 1 MG TABLET PO (09:01)
[2024-11-27] MEDS: cefTRIAXone 2,000 MG in SODIUM CHLORIDE 0.9% 100 ML 200 MG IV (11:34)
--- NOTE | 2024-11-27 11:36 | PM.DS.1 ---
History of Present Illness History of Present Illness Date Patient Seen: 11/27/24 Time Patient Seen: 09:10 Date of Onset of Symptoms: 11/27/24 Chief complaint: foot wound Narrative: The patient was a 49-year-old male with a history of alcohol use disorder and ongoing alcohol use. He was drinking today but came in because of persistent and worsening bilateral red and tender legs. He was seen several days ago in the ER and discharged with oral medications. The patient has not been taking his medications, he denies any fevers, or chills. In the ED he was found to have alcohol on breath, and evidence of fairly red, warm, and swollen legs. There is a concern for worsening cellulitis and medication noncompliance. He has been drinking consistently, at home. His also drinks. He notes he was unkempt because he was not been taking care of himself or bathing. He was a dense neuropathy as well. Both legs are red, and sore. He was given diuretics the other day in urgent care and has been taking these. It was unclear if he was elevated his legs. Both legs are relatively painful. He was shaking today and states he would 2 drinks earlier today. He was never been in an alcohol rehabilitation program or had sustained sobriety. He does realize that alcohol is killing him, and does want to try to make a change. He denies recent URI symptoms, including fevers, chills, or cough. No diarrhea or vomiting. No abdominal pain. Discharge Providers Provider Date of admission: 11/22/24 17:25 Discharge Date: 11/27/24 Primary care physician: Mario Cutler MD Consults: 11/22/24 18:37 Consult to Dietitian, Adult Routine Comment: Reason For Exam: alcohol use disorder 11/23/24 04:10 Consult to Wound Care Routine Comment: [facility] provider: Carlos Smith MD Summary Hospital Course Discharge Diagnosis: 1. Right fifth toe ulcer with osteomyelitis, wound culture negative. 1. Bilateral lower extremity cellulitis (MRSA screen neg), present on admission and improving. 2. Leg edema due to venous insufficiency. 3. Alcohol use disorder, present on admission and active. 4. Alcohol withdrawal, present on admission and resolved. 5. Hepatomegaly and steatosis on recent imaging, present on admission and active. present on admission and active. 7. Dense peripheral neuropathy, present on admission and active. 8. Left lateral foot MTP pad ecchymosis without evidence of skin breakdown or ulceration. Hospital Course: The patient was admitted and started on broad-spectrum antibiotics. Evaluation demonstrated extensive cellulitis with skin ulceration and osteomyelitis by MRI imaging. He was placed on empiric IV ceftriaxone therapy with an anticipated 2 week course, wound care consultation, PICC line placement, and subsequent outpatient management and further consultation with Infectious Disease and Orthopedics for debridement. The patient experienced mild alcohol withdrawal during this hospitalization which resolved prior to discharge. He was feeling well and interested in discharge home with further outpatient management. The patient acknowledged understanding, agreement and appreciation of this plan of care, and agreed to call back with any questions or concerns. Of note he was mildly hypokalemic and oral potassium was added to his discharge regimen. Outpatient follow-up and monitoring is advised. Status at Discharge Cognitive/behavioral status at discharge: oriented Functional status at discharge: uses cane/walker Overall status at discharge: patient is progressing back to baseline Time Spent with Patient Time spent: Greater than 30 minutes Exam Vital Signs (past 8 hours): - 11/27/24 04:00 11/27/24 07:00 11/27/24 08:00 Temperature 98.4 F 98.1 F Pulse Rate 102 H 105 H Respiratory Rate 19 18 Blood Pressure 120/67 116/68 Pulse Oximetry 98 95 Oxygen Delivery Method Room Air Oxygen Flow Rate 0 0 Oxygen Delivery Method Room Air Oxygen Flow Rate 0 Narrative Exam Narrative: NAD, alert and oriented. Fluent speech. HEENT: NC/AT Lungs are clear, normal rate and effort. Heart is regular, no murmur gallop or rub. Abdomen is soft, non distended. Extremities are with 1+ edema, and less left leg redness. Foot wrap in place. Objective Imaging *: Radiologist's impression: Right foot xray: Radiologist's impression: Marked soft tissue swelling over dorsal and lateral aspect of right foot. No abnormal soft tissue calcifications. No subcutaneous emphysema. Right foot osteoarthritis. Subcortical radiolucencies involving 5th metatarsal head and 5th proximal phalangeal base, concerning for developing osteomyelitis involving 5th MTP joint. Left foot xray: Radiologist's impression: Marked left foot soft tissue swelling. No definite subcutaneous emphysema or abnormal soft tissue calcifications. Osteoarthritic changes in left foot. No acute fracture or dislocation. Subtle radiolucencies involving 5th MTP joint as above, early osteomyelitis cannot be entirely excluded. MRI right foot: Radiologist's impression: 1. Mild osteitis versus early osteomyelitis at the 5th digit proximal phalangeal base, with an adjacent subcutaneous ulcer. 2. Chronic, ununited fractures of the 5th digit proximal phalangeal base and 4th proximal phalangeal shaft. 3. Subacute denervation changes of the plantar foot musculature. 4. No drainable abscess. CT scan - head: Radiologist's impression: No acute intracranial pathology. Chest xray: Radiologist's impression: Tip of PICC projects to the area of cavoatrial junction. Labs 11/25/24 04:50 11/27/24 04:30 Labs: Laboratory Results - last 24 hr 11/27/24 04:30 Sodium 132 L Potassium 3.3 L Chloride 98 Carbon Dioxide 30 BUN 14 Creatinine 0.93 Estimated GFR > 60 BUN/Creatinine Ratio 15.1 Glucose 109 H Calcium 9.2 PFSH Medical History (Updated 11/26/24 @ 09:21 by Monica Barbour PA-C) Acne (Unknown) Alcohol abuse (~2016) Decreased libido Erectile dysfunction Essential hypertension (09/12/16) Hypertension (2004) Low back pain (Unknown) Polyneuropathy (Unknown) Surgical History Hx of cholecystectomy (2001) Family History Grandmother Mental health problem Grandfather Cancer Grandmother Cancer Social History household members: spouse Smoking Status: Former smoker Tobacco: How many years used: 1 Smokeless tobacco user: chewing tobacco (many, many years) alcohol intake: current substance use type: does not use Discharge Plan Discharge Plan Patient Disposition: Home Provider Discharge Comment: Followup in Wound Care clinic next week; followup with Mario Cutler 1 week Discharge orders & Medications Prescriptions: New potassium chloride [Klor-Con M20] 20 mEq Tablet,Er Particles/Crystals 20 meq PO DAILY Qty: 30 0RF ceftriaxone 2 gram Recon Soln 2,000 mg IV Q24H 9 Days Qty: 9 0RF Continued pregabalin 75 mg capsule 75 mg PO TID Patient Comments: TAKE ONE CAPSULE BY MOUTH THREE TIMES DAILY furosemide [Lasix] 40 mg tablet 40 mg PO DAILY Qty: 30 0RF spironolactone 25 mg tablet 25 mg PO DAILY Qty: 30 0RF Discontinued chlordiazepoxide HCl 25 mg capsule 25 mg PO DIRECTED Qty: 15 0RF Rx Instructions: Day 1: 50mg q6h Day 2: 25mg q6h Day 3: 25mg q12h Day 4: 25mg at night Follow up/Referrals: Mario Cutler MD [Primary Care Provider] - Visit Report/Discharge Packet Stand Alone Forms: Patient Portal/API, Stroke Signs & Symptoms Discharge Data Primary Care Provider: Mario Cutler Quality VTE Deep Vein Thrombosis/Pulmonary Embolism Present on Admission: No MIPS - Admit I confirm the patient?s Advance Care Plan is present, Code status is documented, Surrogate decision maker is in patient?s record [If Yes, STOP here]: Yes MIPS - Meds 'Current medications' to include all prescriptions, snpa-vbx-yivwlie products, herbals, cannabis/cannabidiol products, and vitamin/mineral/dietary (nutritional) supplements. I have utilized all available resources to obtain, update, or review the patient?s current medications. [If Yes, STOP here]: Yes MIPS - DC The patient has a history of heart transplant or Left Ventricular Assist Device (LVAD). If yes, STOP here.: No The patient has current or prior documentation of left ventricular ejection fraction (LVEF) less than or equal to 40%, or moderate or severely depressed left ventricular systolic function.: No A. The patient was prescribed or already taking an Angiotensin-Converting Enzyme (FRANCESCA) Inhibitor, or Angiotensin Receptor Ren (ARB).: No B. The patient was prescribed or already taking a beta-ren. [If Yes to Both A & B, STOP here]: No Patient not prescribed/taking FRANCESCA or ARB, no reason given.: No Patient not prescribed/taking beta-ren, no reason given.: No PROFEE Charge Codes Discharge inpatient/observation: [id number]
--- NOTE | 2024-11-27 11:40 | PC.NURSE ---
DR. MAHONEY GAVE OK FOR TODAYS DOSE OF ROCEPHIN TO BE GIVEN EARLY,SO PATIENT CAN BE D/Cd HOME.
--- NOTE | 2024-11-27 11:42 | CM.DPC ---
Addendum entered by REE Carvalho 11/27/24 14:31: ADD: RF DESIGN ENGINEER called SW from down outside ED entrance with patient as [employer] arrived and pt now stating he does not have his wallet or know where it might be at home and SW inquired about calling his [place] to get her assist with paying for taxi and pt states he does not think can help. SW used Taxi Voucher as last resort to reduce the risk of pt remaining in the hospital due to transportation and [employer] there waiting to take pt home. Quoted $16 and voucher completed and RN took copy down for the deliver driver and original placed for CM Metal Flooring Installer to review/sign. BF Original Note: DCP Discharge HOme with Infusion Per MD, pt is medically stable to d/c home today with ongoing IV Ceftriaxone Q24 for 2 weeks and no identified barriers to discharge. Per RN, Ceftriaxone can be given early today and will infuse around 1145 and then pt can be ready for discharge. SW confirmed with [facility] that pt's [facility] covers IV-Abx 100% and they have an RN available tomorrow 11/28/24 for pt's next dose of IV-Abx and called pt and updated him. SW met bedside with pt and explained role and discussed above and pt agreeable but drowsy right now so plan is for pt to rest during his infusion and have lunch and then pt states he does not have a ride home and does not know anyone local he can ask and SW received quote from [employer] for $16 private pay to get pt home and pt confirms he has his wallet and willing to pay. SW called [employer] and their next available is 1400 transport from the ED entrance to take pt home private pay. Updated RN and RF DESIGN ENGINEER and faxed discharge summary to [facility] to review. REE Carvalho
[2024-11-27 12:00] VITALS: BP 118/68; PULSE 111; RESP 16; TEMP 36.4; O2SAT 97
--- NOTE | 2024-11-29 13:49 | CM.DPNOTE ---
Addendum entered by REE Carvalho 11/29/24 15:43: ADD: CHRISTIANO confirmed with [facility] that Dr. Smith is not in the office today and has the day off. CHRISTIANO spoke to Hospitalist on today and provided the information and he reviewed pt's chart and feel pt needs ID MD Consult and Ortho Consult due to the Osteomyelitis of the 5th toe and would not be able to be seen as outpt within two weeks and not comfortable signing the Infusion Order form and recommends pt go the the ED ([facility] or [facility]) for his next dose and further consultation to confirm IV-Abx course of treatment before setting him up with outpt Infusion. CHRISTIANO updated [facility] Molly and they will relay this information to the patient and encourage him to go to the ED for his next infusion and outpt plan. CHRISTIANO updated [facility] and they will keep pt's referral and information cued up and wait to hear if pt goes to [facility] or [facility] and the IV-Abx needs. BF Original Note: CHRISTIANO received a call from Molly at [facility] stating their RN went to pt's home yesterday for his next dose of IV Ceftriaxone and pt was too shaky/tremulous and spouse also unable to assist and their RN and pt did not feel they could manage the home infusions themselves. Pt with Ceftriaxone Q24 and CHRISTIANO called [facility] and discussed situation and they could get the pt on their schedule for tomorrow but requesting his discharging MD Dr. Smith to complete the electronic order set in EMR and they will confirm no auth needed from [employer]. CHRISTIANO WebEx'd Dr. Smith and waiting to hear back. [facility] talking to their team to see if they can give pt one more dose for his dose due today if [facility] can be set up for tomorrow. If not, pt would need to come to the ED for his dose. REE Carvalho
== END 2024-11-27 14:00 | disposition home or self-care (01) | DRG 344 ==
LOC: ED 16:59 → AC 17:28
PROVIDERS: Internal Medicine; Pharmacist Pharmacist Clinician (PhC)/ Clinical Pharmacy Specialist; Admitting Provider Hospitalist; Emergency Provider Emergency Medicine; PCP Family Medicine; Referring Provider Emergency Medicine; Visit Provider Hospitalist
DX: M86.9 Osteomyelitis, unspecified (principal); L03.115 Cellulitis of right lower limb; L03.116 Cellulitis of left lower limb; R16.0 Hepatomegaly, not elsewhere classified; K76.0 Fatty (change of) liver, not elsewhere classified; G62.9 Polyneuropathy, unspecified; F10.939 Alcohol use, unspecified with withdrawal, unspecified; L97.513 Non-pressure chronic ulcer of other part of right foot with necrosis of muscle; K70.9 Alcoholic liver disease, unspecified; I87.2 Venous insufficiency (chronic) (peripheral); I10 Essential (primary) hypertension; Y90.2 Blood alcohol level of 40-59 mg/100 ml; Z87.891 Personal history of nicotine dependence
CPT/HCPCS: 36415; 36569; 70450; 73620; 73720; 80048; 80053; 80320; 81003; 81015; 82140; 83036; 83690; 85025; 85610; 87040; 87070; 87075; 87205; 87797; 93005; 96374; 96375; 99233; 99283; 99284; A9579; J0696; J1650; J1940

== ENCOUNTER 2024-11-30 17:50 | Emergency (ER) | payer OTHER, SELFPAY ==
[2024-11-22 18:12] VITALS: BMI 31.5
[2024-11-30] VITALS (10 sets, daily range): BP systolic 113–139; BP diastolic 59–78; PULSE 85–117; RESP 7–21; TEMP 36.8–37.2; O2SAT 98–100; BMI 31.5
--- NOTE | 2024-11-30 18:20 | DI.RAD.S_ITS ---
PROCEDURE: XR CHEST 1V INDICATIONS: suspected sepsis TECHNIQUE: One view of the chest was acquired. COMPARISON: [facility], [place], XR CHEST FOR PICC 1V, 11/26/2024, 18:47. [facility], [place], CHEST 1 VIEW, 04/09/2017, 18:05. FINDINGS: Surgical changes and devices: A right PICC with tip projecting over the mid SVC Lungs and pleura: Low lung volumes. No dense airspace disease or pleural effusions. Mediastinum: Heart size is at the upper limit of normal, unchanged Bones and chest wall: Degenerative changes IMPRESSION: Low lung volumes. No acute radiographic abnormality on this limited single view study. Dictated by: Roberto Carlos Arellano M.D. on 11/30/2024 at 17:33 Approved by: Roberto Carlos Arellano M.D. on 11/30/2024 at 17:34
--- NOTE | 2024-11-30 18:30 | EKG_ITS ---
[facility] [address] [place] [address] Test Date: 2024-11-30 Pat Name: Eric Fontenot Department: [facility] Room: Gender: Male Conveyor Attendant: DIOR : 1975 Requested By: Order Number: [id number] Reading MD: Otto George Measurements Intervals [place] Rate: 109 P: 49 OR: 160 QRS: 11 QRSD: 86 T: 26 QT: 348 QTc: 468 Interpretive Statements Sinus tachycardia Electronically Signed On 12-02-2024 18:32:30 PST by Otto George
[2024-11-30 18:38] LABS: Add Manual Diff / Slide Review NO; Basophils Absolute Auto 100 /uL (0-100); Basophils Percent Auto 0.9 % (0-2); Eosinophils Absolute Auto 200 /uL (0-450); Eosinophils Percent Auto 2.1 % (2-4); Hematocrit 25.5 % (41-53); Hemoglobin 8.6 g/dL (13.5-17.5); Lymphocytes Absolute Auto 1300 /uL (1100-4500); Lymphocytes Percent Auto 13.8 % (25-40); Mean Corpuscular HGB Conc 33.6 % (30-36); Mean Corpuscular Hemoglobin 30.8 PG (26-34); Mean Corpuscular Volume 91.6 fL (80-100); Monocytes Absolute Auto 1100 /uL (0-900); Monocytes Percent Auto 11.6 % (3-14); Neutrophils Absolute Auto 6800 /uL (1500-7000); Neutrophils Percent Auto 71.6 % (50-75); Platelet Count 148 X10^3/uL (150-400); Red Blood Cell Count 2.78 X10^6/uL (4.5-5.9); Red Cell Distribution Width 18.2 % (11.6-14.8); White Blood Cell Count 9.4 X10^3/uL (4.5-11.0)
[2024-11-30 18:46] LABS: INR 1.4 (0.9-1.3)
[2024-11-30 18:49] LABS: PTT Partial Thromboplastin Tim 70 SECONDS (25.1-36.5)
[2024-11-30 18:50] LABS: Alanine Aminotransferase 35 IU/L (<50); Albumin 3.7 g/dL (3.5-5.0); Albumin Globulin Ratio 0.8 (1.0-2.8); Alkaline Phosphatase 133 U/L (38-126); Aspartate Aminotransferase 106 IU/L (17-59); BUN Creatinine Ratio 13.6 (6-22); Blood Urea Nitrogen 12 mg/dL (9-20); Calcium 8.9 mg/dL (8.4-10.2); Carbon Dioxide 24 mmol/L (22-32); Chloride 104 mmol/L (98-107); Estimated Glomerular Filt Rate > 60 mL/min (>60); Globulin 4.4 g/dL (1.7-4.1); Glucose 135 mg/dL (70-100); HEMOLYSIS < 15 (0-50); Lactate (Lactic Acid) 1.1 mmol/L (0.7-2.1); Lipase 227 U/L (23-300); Potassium 3.6 mmol/L (3.4-5.1); Sodium 134 mmol/L (137-145); Total Protein 8.1 g/dL (6.3-8.2)
[2024-11-30 19:07] LABS: Procalcitonin 0.113 ng/mL (<0.5)
--- NOTE | 2024-11-30 20:40 | ED.RECABL ---
HPI - Recheck/Abnormal Lab/Rx General Chief Complaint: Recheck/Abnormal Lab/Rx Stated Complaint: needs antibiotics, infusion Time Seen by Provider: 11/30/24 20:33 Source: patient, RN notes reviewed and old records reviewed Mode of arrival: Ambulatory Limitations: no limitations History of Present Illness HPI narrative: 49-year-old male with alcoholic liver disease, history of bilateral lower extremity edema ongoing alcohol use receiving IV antibiotics for right 5th toe ulcer with osteomyelitis patient placed on empiric IV Rocephin for a 2 week course, wound care, PICC line is placed but patient has had difficulty being able to give or get his antibiotics. Patient states that the home health nurse came he sent her to away after some discussion he was feeling very shaky probably from some alcohol withdrawal and felt uncomfortable doing his own medications but did not keep any of the supplies and sent him away because he was uncomfortable with a Mag in his house because it is very dirty and unkempt. Patient goal is to be able to come to the hospital every day to do his antibiotics. He states that he has missed at least 2 doses. He denies any other symptoms. Related Data Home Medications Medication Instructions Recorded Confirmed pregabalin 75 mg capsule 75 mg PO TID 09/26/22 11/23/24 Previous Rx's Medication Instructions Recorded furosemide 40 mg tablet (Lasix) 40 mg PO DAILY #30 tabs 11/18/24 spironolactone 25 mg tablet 25 mg PO DAILY #30 tabs 11/18/24 ceftriaxone 2 gram solution for 2,000 mg IV Q24H 9 days #9 ea 11/27/24 injection potassium chloride 20 mEq 20 meq PO DAILY #30 tabs 11/27/24 tablet,extended release(part/cryst) (Klor-Con M) Allergies Allergy/AdvReac Type Severity Reaction Status Date / Time No Known Drug Allergies Allergy Verified 11/30/24 18:14 Review of Systems Review of Systems ROS Unobtainable: All systems reviewed & are unremarkable except as noted in HPI and below Patient History Medical History (Updated 11/30/24 @ 22:27 by Deirdre Bryson DO) Decreased libido Erectile dysfunction Alcohol abuse (~2016) Low back pain (Unknown) Polyneuropathy (Unknown) Acne (Unknown) Hypertension (2004) Essential hypertension (09/12/16) Surgical History Hx of cholecystectomy (2001) Family History Grandmother Mental health problem Grandfather Cancer Grandmother Cancer Social History household members: spouse Smoking Status: Former smoker Tobacco: How many years used: 1 Smokeless tobacco user: chewing tobacco (many, many years) alcohol intake: current substance use type: does not use Smoking Status: Former smoker alcohol intake frequency: 0-2 drinks per day Alcohol type: beer Exam Narrative Exam Narrative: GENERAL: Alert and oriented x three, male in mild distress. HEENT: Head normocephalic, atraumatic, EOMI, pupils reactive, face symmetric, moist mucous membranes NECK: Supple, full range of motion CARDIOVASCULAR: Regular rate and rhythm without murmurs, rubs or gallops. RESPIRATORY: Breath sounds equal bilaterally, no wheezes rales or rhonchi. ABDOMEN: Soft, nontender. Normoactive bowel sounds all 4 quadrants. No guarding or rebound, rigidity, no mass : No CVA tenderness EXTREMITIES: Normal range of motion, no clubbing or edema. Patient has a wound the ball of his right foot there is some granulation tissue there is no surrounding erythema, foul odor or purulent drainage areas nontender but patient states he is decreased range of motion throughout his foot. No other swelling redness or changes to the foot itself. NEUROLOGICAL: Cranial nerves II through XII grossly intact. Moving all extremities. No tremor. SKIN: Warm, dry, no petechiae, no rashes or lesions. Initial Vital Signs Initial Vital Signs: Vital Signs Pulse Rate 117 H 11/30/24 18:04 Pulse Oximetry 100 11/30/24 18:04 Course Orders Ordered: ED Orders 11/30/24 22:30 Consult to THERAPY ADMINISTRATIVE ASSISTANT - [employer] Delivery Driver Stat Discontinued Medications Sodium Chloride (Normal Saline 0.9%) 1,000 mls @ 1,000 mls/hr IV BOLUS ONE Stop: 11/30/24 19:19 Last Admin: 11/30/24 21:48 Dose: Not Given Documented By: Ceftriaxone Sodium 2,000 mg/ (Sodium Chloride) 100 mls @ 200 mls/hr IV NOW ONE Stop: 11/30/24 21:52 Last Infusion: 11/30/24 22:30 Dose: Infused Documented By: Admin: 11/30/24 21:56 Dose: 200 mls/hr Documented By: Ondansetron HCl (Ondansetron 4 Mg/2 Ml Inj) 4 mg IV NOW PRN PRN Reason: Nausea And Vomiting Ondansetron HCl (Ondansetron 4 Mg Odt) 4 mg SL NOW PRN PRN Reason: Nausea And Vomiting Vital Signs Vital signs: Vital Signs - 8 hr 11/30/24 18:04 11/30/24 18:05 11/30/24 18:05 Temperature Pulse Rate 117 H 115 H Respiratory Rate Blood Pressure 139/69 Pulse Oximetry 100 100 Oxygen Delivery Method 11/30/24 18:14 11/30/24 18:30 11/30/24 18:30 Temperature 99 F Pulse Rate 112 H 109 H Respiratory Rate 21 18 Blood Pressure 139/69 129/65 Pulse Oximetry 100 99 Oxygen Delivery Method Room Air Room Air 11/30/24 19:00 11/30/24 19:00 11/30/24 19:30 Temperature Pulse Rate 103 H 101 H Respiratory Rate 14 14 Blood Pressure 113/59 L Pulse Oximetry 98 98 Oxygen Delivery Method 11/30/24 19:30 11/30/24 20:00 11/30/24 20:30 Temperature Pulse Rate 100 H 98 H Respiratory Rate 19 7 L Blood Pressure 114/59 L Pulse Oximetry 100 100 Oxygen Delivery Method 11/30/24 21:00 Temperature Pulse Rate 97 H Respiratory Rate Blood Pressure Pulse Oximetry 100 Oxygen Delivery Method MDM - Recheck/Abnormal Lab/Rx Lab Data 11/30/24 18:30 11/30/24 18:30 Labs: Lab Results 11/30/24 Range/Units 18:30 WBC 9.4 (4.5-11.0) X10^3/uL RBC 2.78 L (4.5-5.9) X10^6/uL Hgb 8.6 L (13.5-17.5) g/dL Hct 25.5 L (41-53) % MCV 91.6 (80-100) fL MCH 30.8 (26-34) PG MCHC 33.6 (30-36) % RDW 18.2 H (11.6-14.8) % Plt Count 148 L (150-400) X10^3/uL Neut % (Auto) 71.6 (50-75) % Lymph % (Auto) 13.8 L (25-40) % [place] % (Auto) 11.6 (3-14) % Eos % (Auto) 2.1 (2-4) % Baso % (Auto) 0.9 (0-2) % Neut # (Auto) 6800 (9662-7625) /uL Lymph # (Auto) 1300 (7835-4575) /uL [place] # (Auto) 1100 H (0-900) /uL Eos # (Auto) 200 (0-450) /uL Baso # (Auto) 100 (0-100) /uL PT 16.0 H (9.4-12.5) SECONDS INR 1.4 H (0.9-1.3) APTT 70 H (25.1-36.5) SECONDS Sodium 134 L (137-145) mmol/L Potassium 3.6 (3.4-5.1) mmol/L Chloride 104 (98-107) mmol/L Carbon Dioxide 24 (22-32) mmol/L BUN 12 (9-20) mg/dL Creatinine 0.88 (0.66-1.25) mg/dL Estimated GFR > 60 (>60) mL/min BUN/Creatinine Ratio 13.6 (6-22) Glucose 135 H (70-100) mg/dL Lactate 1.1 (0.7-2.1) mmol/L Calcium 8.9 (8.4-10.2) mg/dL Total Bilirubin 3.0 H (0.2-1.3) mg/dL AST 106 H (17-59) IU/L ALT 35 (<50) IU/L Alkaline Phosphatase 133 H (38-126) U/L Total Protein 8.1 (6.3-8.2) g/dL Albumin 3.7 (3.5-5.0) g/dL Globulin 4.4 H (1.7-4.1) g/dL Albumin/Globulin Ratio 0.8 L (1.0-2.8) Lipase 227 (23-300) U/L Procalcitonin 0.113 (<0.5) ng/mL Ethyl Alcohol < 10 ( - 10) mg/dL Urine Dip Bedside Urine Glucose Negative Bedside Urine Bilirubin + 1 Bedside Urine Ketone +/- 5 Urine Specific [place] 1.015 Bedside Urine Occult Blood - Negative Bedside Urine pH 6.0 Bedside Urine Protein + 30 Bedside Urine Urobilinogen +/- 1mg Bedside Urine Nitrite - Negative Bedside Urine Leukocytes +/- 15 Esterase MDM Narrative Medical decision making narrative: Discussed with patient he is seeking assistance with giving himself his antibiotics home health care presented with supplies to show him how to do it he felt uncomfortable doing it himself and also does not want them to return to the house because he feels very uncomfortable with the state of his current living situation. Patient is asking to come to the ER daily to have his infusions he does have a PICC line in place he does not appear to be septic or currently have any significant overlying cellulitis or skin infection. Patient was given a dose of Rocephin here his labs overall do not show any concerning changes tonight. Discussed with patient we will discharge him home to follow up tomorrow with the emergency department to talk with social work to see if he had be a candidate to go to the infusion center here. He no longer has his supplies and patient does not seem very willing to allow home health care to return to his house. Patient states he has a little bit of alcohol but states he has a very minimal amount since its discharge. He was not speaking admission or correction stay at time. Labs show white count of 9.4 hemoglobin 8.6 consistent with priors platelets of 148. INR 1.4. Electrolytes shows sodium 134 potassium 3.6 chloride 104 CO2 of 24 BUN 12 creatinine of 0.88 glucose of 135 Jack is 3 AST is 106 ALT is 35 with a alk-phos of 133. Lipase of 227. Procalcitonin 0.113. Lactate 1.1. Blood cultures are pending. Discharge Plan Departure Patient Disposition: Home Clinical Impression: Osteomyelitis of fifth toe of right foot Activity Restrictions/Additional Instructions: Please return tomorrow during daytime hours for repeat dose of your IV antibiotic but also to talk to social work or to see if you can be set up for outpatient infusion of your IV antibiotics if you are not going to allow home health care to return to your house to give you your medications. It is very important that you receive your antibiotics as you have an infection in the bone of your foot and this could subsequently becomes significantly worse and even potentially kill you if left untreated. Please return for fevers, chest pain or shortness of breath, vomiting, new redness, swelling or signs of new infection in your foot or the wound on your foot. Prescriptions: No Action pregabalin 75 mg capsule 75 mg PO TID Patient Comments: TAKE ONE CAPSULE BY MOUTH THREE TIMES DAILY furosemide [Lasix] 40 mg tablet 40 mg PO DAILY Qty: 30 0RF spironolactone 25 mg tablet 25 mg PO DAILY Qty: 30 0RF potassium chloride [Klor-Con M20] 20 mEq Tablet,Er Particles/Crystals 20 meq PO DAILY Qty: 30 0RF ceftriaxone 2 gram Recon Soln 2,000 mg IV Q24H 9 Days Qty: 9 0RF Referrals: Mario Cutler MD [Primary Care Provider] - Stand Alone Forms: Patient Portal/API/Survey
[2024-11-30 21:05] LABS: Ethanol (ETOH) < 10 mg/dL
[2024-11-30] MEDS: cefTRIAXone 2,000 MG in SODIUM CHLORIDE 0.9% 100 ML 200 MG IV (21:56)
== END 2024-11-30 22:48 | disposition home or self-care (01) ==
PROVIDERS: Emergency Provider Emergency Medicine; PCP Family Medicine
DX: M86.8X7 Other osteomyelitis, ankle and foot (principal); Z59.89 Other problems related to housing and economic circumstances; Z97.8 Presence of other specified devices
CPT/HCPCS: 71045; 80053; 80320; 81003; 83605; 83690; 84145; 85025; 85610; 85730; 87040; 93005; 96365; 99284; J0696

== ENCOUNTER 2024-12-03 15:37 | Emergency (ER) | payer OTHER, SELFPAY ==
[2024-11-22 18:12] VITALS: BMI 31.5
[2024-12-03 15:50] VITALS: BP 121/57; PULSE 117; RESP 16; TEMP 37.4; O2SAT 100; BMI 31.2
--- NOTE | 2024-12-03 17:38 | CM.SWNOTE ---
ED PARK KEEPER Note PARK KEEPER receives consult due to concern for patient's access to social detriments and patient's need for outpatient IV antibiotics. This is patient's second presentation to the ED since d/c from acute care last week. Patient initially had [facility] set up but patient refused care. Patient is currently requiring 2 weeks of IV antibiotics for Osteomyelitis of fifth toe on right foot. Patient's PCP is Mario Cutler, patient has [facility] Healthy Options and Medicaid insurance. Patient has hx of ETOH use, bilateral cellulitis, essential hypertension, and hypokalemia. Patient has been provided with [facility]patient [facility] referral, housing and community resources this month. PARK KEEPER calls Infusion clinic and leaves regarding referral, it is reported that they are closed on Fridays and the office does not open until Friday. RN prints out referral for Infusion clinic and PARK KEEPER and RN begin to fill out form, ED team to provide referral for ED provider to complete and fill out. ED team to fax referral and clinicals for review. This referral will not be received until Friday. Infusion clinic likely to f/u with ED PARK KEEPER on Friday regarding referral. Patient currently waiting in ED waiting room due to high census, PARK KEEPER to attempt to meet with patient via phone, in person upon next ED presentation. Plan: patient to receive IV antibiotics in ED, and d/c to home upon medical clearance, patient likely to return for further infusions this weekend. Cinthia Mary, [employer] DES[employer]
== END 2024-12-04 00:15 | disposition left against medical advice (07) ==
PROVIDERS: Emergency Provider Emergency Medicine; PCP Family Medicine
DX: Z53.21 Procedure and treatment not carried out due to patient leaving prior to being seen by health care provider (principal)
CPT/HCPCS: 99281

== ENCOUNTER 2024-12-20 04:41 | Inpatient (IN) | payer OTHER, SELFPAY ==
[2024-11-22 18:12] VITALS: BMI 31.5
[2024-12-20] VITALS (32 sets, daily range): BP systolic 102–134; BP diastolic 56–76; PULSE 12–111; RESP 12–22; TEMP 36.1–37.1; O2SAT 80–100; BMI 33.1
--- NOTE | 2024-12-20 04:46 | ED.ALCOHOL ---
HPI - Alcohol <Candelario Irving DO - Last Filed: 12/20/24 17:58> General Chief Complaint: Toxicology Problem Stated Complaint: ETOH Time Seen by Provider: 12/20/24 04:46 History of Present Illness HPI narrative: 49-year-old male history of alcohol abuse alcoholic cirrhosis bilateral lower extremity edema, receiving IV antibiotics for right 5th toe ulcer with osteomyelitis (empirically getting IV Rocephin) was getting this by his home health nurse comes into the ED from home via EMS for evaluation of alcohol abuse. He states that he has been drinking today does want some help to stop drinking. He also states that approximately 2 days ago he pulled out his PICC line to his right upper extremity. Patient stating that he is still having persistent pain to his bilateral lower extremities but no new symptoms. He has not complaining of any new or worsening symptoms. Additional ROS HPI limited given patient intoxicated, he will not participate in further discussions in regards to why he took out his PICC line as well as when his last dose of Rocephin was given therefore will give dose of Rocephin here. Review of records show that patient was seen here on 11/30/2024 for similar symptoms, he at that time he was requesting to come to the ER daily to receive his infusions via his PICC line given the fact that he ?was not feeling safe/comfortable doing it himself at home he was given a dose of his Rocephin at that time and instructed to follow up with social work Related Data Home Medications Medication Instructions Recorded Confirmed pregabalin 75 mg capsule 75 mg PO TID 09/26/22 12/20/24 Previous Rx's Medication Instructions Recorded furosemide 40 mg tablet (Lasix) 40 mg PO DAILY #30 tabs 11/18/24 spironolactone 25 mg tablet 25 mg PO DAILY #30 tabs 11/18/24 Allergies Allergy/AdvReac Type Severity Reaction Status Date / Time No Known Drug Allergies Allergy Verified 11/30/24 18:14 Review of Systems <Candelario Irving DO - Last Filed: 12/20/24 17:58> Review of Systems Narrative: General: Positive alcohol intoxication Denies fever, chills, weight loss HEENT: Denies headache, eye drainage, eye irritation, head trauma, sore throat, voice change Cardiovascular: Denies any chest pain, palpitations, shortness of breath, tachycardia Respiratory: Denies any shortness of breath, cough, wheeze, stridor GI/: Denies any abdominal pain, nausea, vomiting, diarrhea, bright red blood per rectum, melanotic stools, urinary frequency, urinary retention, dysuria, hematuria MSK: Positive lower extremity swelling and pain Skin: Denies any rashes, lesions, discoloration Neuro: Denies any headache, lightheadedness, dizziness, fainting, weakness Psych: Denies SI/HI Patient History <Candelario Irving DO - Last Filed: 12/20/24 17:58> Medical History (Updated 12/20/24 @ 12:48 by Juan Antonio Hanson MD) Hepatosplenomegaly Portal hypertension Hepatosplenomegaly Foot osteomyelitis, right Neuropathic foot ulcer Decreased libido Erectile dysfunction Alcohol abuse (~2016) Low back pain (Unknown) Polyneuropathy (Unknown) Acne (Unknown) Hypertension (2004) Essential hypertension (09/12/16) Surgical History (Updated 12/20/24 @ 12:49 by Juan Antonio Hanson MD) H/O surgical amputation of finger Hx of cholecystectomy (2001) Family History (Updated 12/20/24 @ 12:50 by Juan Antonio Hanson MD) Grandmother Mental health problem Grandfather Cancer Grandmother Cancer Mother History of back problems Father Amputation leg, bilat Social History household members: spouse and family Smoking Status: Never smoker Tobacco: How many years used: 1 Smokeless tobacco user: chewing tobacco (many, many years) alcohol intake: current substance use type: does not use Smoking Status: Current every day smoker tobacco type: cigarettes and smokeless tobacco alcohol intake frequency: 0-2 drinks per day Alcohol type: beer Exam <Candelario Irving DO - Last Filed: 12/20/24 17:58> Narrative Exam Narrative: General: Cooperative, comfortable, well-developed, not in acute distress HEENT: Normocephalic, atraumatic, PERRLA, normal sclera, eyelids normal, Neck: Active full range of motion, atraumatic Chest: Normal to inspection, negative crepitus, no overlying erythema ecchymosis Respiratory: Normal respiratory effort, not in acute respiratory distress, clear to auscultation bilaterally negative cough, wheeze, tachypnea, rhonchi, rales Cardiology: Regular rate rhythm negative gallop, murmur, rubs GI/: Normal to inspection, soft, nonrigid, no tenderness to palpation, exam deferred MSK: +2 pitting edema bilaterally lower extremities, no streaking noted, there is a 1.5cm x 1.5 cm ulceration to the bottom of his right foot at the base of his 5th toe, no purulent discharge noted, dried blood noted to the medial aspect of the right upper arm no erythema no streaking no tenderness to palpation no crepitus consistent with previous PICC line placement. Skin: No rashes lesions noted Neuro: Alert awake oriented x3, moves all 4 extremities spontaneously, cranial nerves intact, able to answer all questions appropriately follows commands appropriately Psych: Cooperative, negative suicidal or homicidal ideations Initial Vital Signs Initial Vital Signs: Vital Signs Pulse Rate 111 H 12/20/24 04:46 Pulse Oximetry 100 12/20/24 04:46 <Lily Brannon, DO - Last Filed: 12/20/24 18:43> Initial Vital Signs Initial Vital Signs: Vital Signs Pulse Rate 111 H 12/20/24 04:46 Pulse Oximetry 100 12/20/24 04:46 Course <Candelario Irving, DO - Last Filed: 12/20/24 17:58> Orders Ordered: Enoxaparin Sodium (Enoxaparin 40 Mg/0.4 Ml Syringe) 40 mg SUBCUT DAILY FOR[facility]LY [facility], [facility]1983 Sodium Chloride (Normal Saline 0.9%) 1,000 mls @ 100 mls/hr IV CONT WEI Stop: 12/22/24 11:00 Last Admin: 12/20/24 13:14 Dose: 100 mls/hr Documented By: RADHA Cefepime HCl 2 gm/ Sodium (Chloride) 100 mls @ 200 mls/hr IV Q12H FOR[facility], [facility]1983 Last Infusion: 12/20/24 13:58 Dose: Infused Documented By: Admin: 12/20/24 13:15 Dose: 200 mls/hr Documented By: RADHA Vancomycin HCl/Dextrose (Vancomycin) 1,500 mg in 300 mls @ 200 mls/hr IV Q12H FOR[facility], [facility] Last Admin: 12/20/24 13:59 Dose: 200 mls/hr Documented By: ELY Lorazepam (Lorazepam 1 Mg Tablet) 1 mg PO Q4HR PRN PRN Reason: Anxiety Last Admin: 12/20/24 15:42 Dose: 1 mg Documented By: RADHA Magnesium Oxide (Magnesium Oxide 400 Mg Tablet) 400 mg PO BID FOR[facility]LY [facility], [facility]1983 Naloxone HCl (Naloxone 0.4 Mg/Ml Vial) 0.2 mg IV Q2MIN PRN PRN Reason: Opiate Reversal Thiamine HCl (Thiamine 100 Mg Tablet) 100 mg PO DAILY [facility], [facility] Vancomycin HCl (Vancomycin Per Pharmacy) 1 request MIS NOW PRN PRN Reason: Foot Osteomyelitis Vancomycin HCl (Vancomycin Trough) 1 request MIS 0130 [facility], [facility] Stop: 12/22/24 01:31 Vancomycin HCl (Vancomycin Peak) 1 request [facility] 0430 FOR[facility], [facility] Stop: 12/22/24 04:31 Discontinued Medications Ceftriaxone Sodium 2,000 mg/ (Sodium Chloride) 100 mls @ 200 mls/hr IV NOW ONE Stop: 12/20/24 04:55 Last Infusion: 12/20/24 05:43 Dose: Infused Documented By: Admin: 12/20/24 05:13 Dose: 200 mls/hr Documented By: ALANA Vital Signs Vital signs: Vital Signs - 8 hr 12/20/24 10:00 12/20/24 10:00 12/20/24 10:15 Pulse Rate 86 93 H Respiratory Rate 16 14 Blood Pressure 103/56 L Pulse Oximetry 98 99 Oxygen Delivery Method Nasal Cannula Nasal Cannula Oxygen Flow Rate 2 2 12/20/24 10:15 Pulse Rate Respiratory Rate Blood Pressure 105/59 L Pulse Oximetry Oxygen Delivery Method Oxygen Flow Rate <Lily Brannon DO - Last Filed: 12/20/24 18:43> Orders Ordered: Enoxaparin Sodium (Enoxaparin 40 Mg/0.4 Ml Syringe) 40 mg SUBCUT DAILY [facility], [facility] Sodium Chloride (Normal Saline 0.9%) 1,000 mls @ 100 mls/hr IV CONT WEI Stop: 12/22/24 11:00 Last Admin: 12/20/24 13:14 Dose: 100 mls/hr Documented By: RADHA Cefepime HCl 2 gm/ Sodium (Chloride) 100 mls @ 200 mls/hr IV Q12H [facility] Last Infusion: 12/20/24 13:58 Dose: Infused Documented By: Admin: 12/20/24 13:15 Dose: 200 mls/hr Documented By: RADHA Vancomycin HCl/Dextrose (Vancomycin) 1,500 mg in 300 mls @ 200 mls/hr IV Q12H [facility] Last Admin: 12/20/24 13:59 Dose: 200 mls/hr Documented By: TLS Lorazepam (Lorazepam 1 Mg Tablet) 1 mg PO Q4HR PRN PRN Reason: Anxiety Last Admin: 12/20/24 15:42 Dose: 1 mg Documented By: RW Magnesium Oxide (Magnesium Oxide 400 Mg Tablet) 400 mg PO BID [facility], [facility] Naloxone HCl (Naloxone 0.4 Mg/Ml Vial) 0.2 mg IV Q2MIN PRN PRN Reason: Opiate Reversal Thiamine HCl (Thiamine 100 Mg Tablet) 100 mg PO DAILY [facility] Vancomycin HCl (Vancomycin Per Pharmacy) 1 request MISC NOW PRN PRN Reason: Foot Osteomyelitis Vancomycin HCl (Vancomycin Trough) 1 request [facility] 0130 [facility], [facility] Stop: 12/22/24 01:31 Vancomycin HCl (Vancomycin Peak) 1 request [facility] 043 [facility] Stop: 12/22/24 04:31 Discontinued Medications Ceftriaxone Sodium 2,000 mg/ (Sodium Chloride) 100 mls @ 200 mls/hr IV NOW ONE Stop: 12/20/24 04:55 Last Infusion: 12/20/24 05:43 Dose: Infused Documented By: Admin: 12/20/24 05:13 Dose: 200 mls/hr Documented By: ALANA Vital Signs Vital signs: Vital Signs - 8 hr 12/20/24 10:00 12/20/24 10:00 12/20/24 10:15 Pulse Rate 86 93 H Respiratory Rate 16 14 Blood Pressure 103/56 L Pulse Oximetry 98 99 Oxygen Delivery Method Nasal Cannula Nasal Cannula Oxygen Flow Rate 2 2 12/20/24 10:15 Pulse Rate Respiratory Rate Blood Pressure 105/59 L Pulse Oximetry Oxygen Delivery Method Oxygen Flow Rate MDM - Alcohol <Candelario Irving DO - Last Filed: 12/20/24 17:58> Differential Diagnosis Differential diagnosis: Likely alcohol intoxication and other (Electrolyte abnormality, sepsis, osteomyelitis) Lab Data 12/20/24 04:54 12/20/24 04:54 Labs: Lab Results 12/20/24 12/20/24 Range/Units 04:54 08:34 WBC 6.1 (4.5-11.0) X10^3/uL RBC 3.07 L (4.5-5.9) X10^6/uL Hgb 8.7 L (13.5-17.5) g/dL Hct 25.9 L (41-53) % MCV 84.3 (80-100) fL MCH 28.5 (26-34) PG MCHC 33.8 (30-36) % RDW 19.1 H (11.6-14.8) % Plt Count 127 L (150-400) X10^3/uL Neut % (Auto) 53.4 (50-75) % Lymph % (Auto) 30.1 (25-40) % Orange % (Auto) 12.2 (3-14) % Eos % (Auto) 3.5 (2-4) % Baso % (Auto) 0.8 (0-2) % Neut # (Auto) 3300 (7930-5069) /uL Lymph # (Auto) 1800 (4909-1246) /uL Orange # (Auto) 700 (0-900) /uL Eos # (Auto) 200 (0-450) /uL Baso # (Auto) 0 (0-100) /uL ESR 65 H (0-15) MM/HR Sodium 138 (137-145) mmol/L Potassium 3.4 (3.4-5.1) mmol/L Chloride 106 (98-107) mmol/L Carbon Dioxide 23 (22-32) mmol/L BUN 7 L (9-20) mg/dL Creatinine 0.85 (0.66-1.25) mg/dL Estimated GFR > 60 (>60) mL/min BUN/Creatinine Ratio 8.2 (6-22) Glucose 130 H (70-100) mg/dL Lactate 1.4 (0.7-2.1) mmol/L Calcium 8.6 (8.4-10.2) mg/dL Magnesium 1.5 L (1.6-2.3) mg/dL Total Bilirubin 2.0 H (0.2-1.3) mg/dL AST 82 H (17-59) IU/L ALT 25 (<50) IU/L Alkaline Phosphatase 119 (38-126) U/L C-Reactive Protein 2.1 H (<1.0) mg/dL Total Protein 8.3 H (6.3-8.2) g/dL Albumin 4.1 (3.5-5.0) g/dL Globulin 4.2 H (1.7-4.1) g/dL Albumin/Globulin Ratio 1.0 (1.0-2.8) TSH 2.48 (0.47-4.68) uIU/mL Salicylates < 1.0 (<20) mg/dL Acetaminophen < 10 (10-30) ug/mL Ethyl Alcohol 258 H ( - 10) mg/dL Imaging Data Extremity x-ray #1: Radiologist's Impressoin: Preliminary read showing soft tissue swelling and soft tissue lucency over the lateral aspect of the 5th metatarsophalangeal joint with findings concerning for septic arthritis and osteomyelitis surrounding the 5th metatarsophalangeal joint MDM Narrative Medical decision making narrative: 49-year-old male with a history of alcohol abuse, hypertension, alcohol cirrhosis, history of osteomyelitis to the 5th digit of the right toe, with previous history of Rocephin infusion via PICC line, comes into the ED via EMS from home for alcohol intoxication, states that he has been drinking bunch of beers today has been doing this for ?years states that he wants help, he also states that he pulled out his PICC line but refuses to give an answer. Patient has alcohol 258. Patient's lab work without any leukocytosis, lactate within normal range, patient afebrile not meeting sepsis or sirs criteria, however x-ray showing worsening osteomyelitis requiring repeat imaging of foot via MRI. Social work was also consulted in regards to patient's request for treatment for his alcoholism as well as help with care and administration of IV antibiotics 0604: Discussed case with Dr. Lerma (orthopedic surgery), in regards to x-ray with concerns for worsening osteomyelitis and possible septic arthritis of the 5th digit, he states at this time would recommend repeat MRI given patient's noncompliance with antibiotics, agrees with administration of current antibiotic regimen, states that patient also possible candidate for amputation dependent on results. No further recommendations at this time, states reach out with MRI findings for further recommendations. 0700: Patient was signed out to [facility]coming day provider, patient pending MRI of his foot for worsening osteomyelitis, patient also pending social work evaluation given history of noncompliance and issues with taking care of himself at home, consult for PICC line placement, disposition pending re-evaluation, MRI results, orthopedic recommendations and social work recommendations <Lily Brannon, DO - Last Filed: 12/20/24 18:43> Lab Data Labs: Lab Results 12/20/24 12/20/24 Range/Units 04:54 08:34 WBC 6.1 (4.5-11.0) X10^3/uL RBC 3.07 L (4.5-5.9) X10^6/uL Hgb 8.7 L (13.5-17.5) g/dL Hct 25.9 L (41-53) % MCV 84.3 (80-100) fL MCH 28.5 (26-34) PG MCHC 33.8 (30-36) % RDW 19.1 H (11.6-14.8) % Plt Count 127 L (150-400) X10^3/uL Neut % (Auto) 53.4 (50-75) % Lymph % (Auto) 30.1 (25-40) % Orange % (Auto) 12.2 (3-14) % Eos % (Auto) 3.5 (2-4) % Baso % (Auto) 0.8 (0-2) % Neut # (Auto) 3300 (9302-5079) /uL Lymph # (Auto) 1800 (7661-0608) /uL Orange # (Auto) 700 (0-900) /uL Eos # (Auto) 200 (0-450) /uL Baso # (Auto) 0 (0-100) /uL ESR 65 H (0-15) MM/HR Sodium 138 (137-145) mmol/L Potassium 3.4 (3.4-5.1) mmol/L Chloride 106 (98-107) mmol/L Carbon Dioxide 23 (22-32) mmol/L BUN 7 L (9-20) mg/dL Creatinine 0.85 (0.66-1.25) mg/dL Estimated GFR > 60 (>60) mL/min BUN/Creatinine Ratio 8.2 (6-22) Glucose 130 H (70-100) mg/dL Lactate 1.4 (0.7-2.1) mmol/L Calcium 8.6 (8.4-10.2) mg/dL Magnesium 1.5 L (1.6-2.3) mg/dL Total Bilirubin 2.0 H (0.2-1.3) mg/dL AST 82 H (17-59) IU/L ALT 25 (<50) IU/L Alkaline Phosphatase 119 (38-126) U/L C-Reactive Protein 2.1 H (<1.0) mg/dL Total Protein 8.3 H (6.3-8.2) g/dL Albumin 4.1 (3.5-5.0) g/dL Globulin 4.2 H (1.7-4.1) g/dL Albumin/Globulin Ratio 1.0 (1.0-2.8) TSH 2.48 (0.47-4.68) uIU/mL Salicylates < 1.0 (<20) mg/dL Acetaminophen < 10 (10-30) ug/mL Ethyl Alcohol 258 H ( - 10) mg/dL Imaging Data MRI foot: Radiologist's Impressoin: PROCEDURE: MR FOOT RT WO/W CON INDICATIONS: Worsening osteomyelitis 5th digit TECHNIQUE: Noncontrast coronal T1 spin echo and STIR, sagittal T1 spin echo with fat saturation and STIR, axial T1 spin echo and T2 fast spin echo with fat saturation. After the administration of contrast, axial/sagittal/coronal T1 spin echo with fat saturation through the right foot. COMPARISON: [facility], , MR FOOT RT WO/W CON, 11/25/2024, 14:53. FINDINGS: Image quality: Excellent. Bones: Mild osteoarthritic changes are seen throughout midfoot and forefoot. Finding is more notably involving MTP joints with joint space narrowing, subchondral sclerosis and small marginal osteophyte formation. Deformity involving 5th proximal phalanx with mild marrow edema. Mild edema is also noted involving adjacent 5th metatarsal head. Subtle contrast enhancement is seen in the above-mentioned area of edema. Subtle cortical erosion is also seen involving 5th proximal phalangeal base and 5th metatarsal head. No other area of abnormal marrow signal or enhancement is seen. No acute fracture or dislocation. Soft tissues: Marked soft tissue edema and swelling throughout midfoot and forefoot is seen particularly over dorsal and lateral aspect of forefoot. Ulceration involving plantar aspect of 5th toe at the level of 5th MTP joint is seen. No discrete drainable peripherally enhancing fluid collection is noted. Visualized plantar foot muscles show diffuse edema suggestive of myositis. No area of abnormal intramuscular fluid or enhancing mass. IMPRESSION: 1. Ulceration over plantar aspect of 5th MTP joint with extensive cellulitis throughout midfoot and forefoot. No discrete drainable abscess collection. Suggestion of myositis throughout visualized plantar foot muscles without intramuscular fluid collection or mass. 2. Mild midfoot and forefoot joint osteoarthritis most notably involving 5th MTP joint. There are deformities and subtle erosive changes with marrow edema involving 5th proximal phalangeal base and adjacent 5th metatarsal head with mild contrast enhancement concerning for osteomyelitis of indeterminate age. Small amount of fluid within 5th MTP joint is seen with thickened synovial lining and mild enhancement, septic arthritis cannot be excluded. Dictated by: Jeffry Steiner M.D. on 12/20/2024 at 8:51 MDM Narrative Medical decision making narrative: 49-year-old male with a history of alcohol abuse, hypertension, alcohol cirrhosis, history of osteomyelitis to the 5th digit of the right toe, with previous history of Rocephin infusion via PICC line, comes into the ED via EMS from home for alcohol intoxication, states that he has been drinking bunch of beers today has been doing this for ?years states that he wants help, he also states that he pulled out his PICC line but refuses to give an answer. Patient has alcohol 258. Patient's lab work without any leukocytosis, lactate within normal range, patient afebrile not meeting sepsis or sirs criteria, however x-ray showing worsening osteomyelitis requiring repeat imaging of foot via MRI. Social work was also consulted in regards to patient's request for treatment for his alcoholism as well as help with care and administration of IV antibiotics 0604: Discussed case with Dr. Lerma (orthopedic surgery), in regards to x-ray with concerns for worsening osteomyelitis and possible septic arthritis of the 5th digit, he states at this time would recommend repeat MRI given patient's noncompliance with antibiotics, agrees with administration of current antibiotic regimen, states that patient also possible candidate for amputation dependent on results. No further recommendations at this time, states reach out with MRI findings for further recommendations. 0700: Patient was signed out to [facility] provider, patient pending MRI of his foot for worsening osteomyelitis, patient also pending social work evaluation given history of noncompliance and issues with taking care of himself at home, consult for PICC line placement, disposition pending re-evaluation, MRI results, orthopedic recommendations and social work recommendations Dr. Brannon-patient is a 49-year-old male signed out to me by , I have seen evaluated patient myself. He does have significant bilateral lower extremity swelling he actually has some erythema on his left leg chronic right foot ulcer. MRI does show extensive cellulitis throughout the mid foot no drainable abscess also noted to have osteoarthritis possible osteomyelitis of the 5th metatarsal head. He was significantly elevated ESR 65 and CRP of 2.1. Donald discussion with patient about foot amputation which he is not agreeable to states he would ?rather .He is noncompliant with IV medications at home his PICC line has been pulled out he is missed IV doses. At this time significant concern for compliance also has alcohol abuse. I suspect the long-term care facility for IV antibiotics may be reasonable. However unclear well foot will respond to the antibiotics however he wants no aggressive treatment. Dr. Hanson updated and agrees need rehospitalization. Ortho updated on new plan Discharge Plan Departure Patient Disposition: Admitted As Inpatient Clinical Impression: Osteomyelitis, Alcohol intoxication, Cellulitis Admit Date/Time: 12/20/24 10:23 Admit Provider: Juan Antonio Hanson
--- NOTE | 2024-12-20 04:59 | DI.RAD.S_ITS ---
PROCEDURE: XR FOOT RT MIN 3V INDICATIONS: hx osteomyelitis base of 5th digit TECHNIQUE: 3 views of the foot were acquired. COMPARISON: [facility], CR, XR FOOT LT 2V, 11/24/2024, 11:07. FINDINGS: Bones: No fractures or dislocations. Radiolucencies and deformity involving 5th proximal phalangeal base and adjacent 5th metatarsal head. No other area of abnormal radiolucencies. Soft tissues: Soft tissue swelling along dorsal and lateral aspect of right foot particularly over 5th MTP joint is seen. No definite subcutaneous emphysema or abnormal soft tissue calcifications. IMPRESSION: Finding is concerning for septic arthritis and osteomyelitis involving 5th MTP joint. Dorsal and lateral right foot soft tissue swelling. No acute fracture or dislocation. No abnormal soft tissue calcifications. No significant discrepancies from preliminary reading. Dictated by: Jeffry Steiner M.D. on 12/20/2024 at 8:44 Approved by: Jeffry Steiner M.D. on 12/20/2024 at 8:51
--- NOTE | 2024-12-20 05:03 | PC.NURSE ---
Condom cath applied
--- NOTE | 2024-12-20 05:03 | PC.NURSE ---
HARNESS TIER note: As I was putting on an external catheter, patient was wearing green paper scrub pants. Patient alerted me I pissed my pants. I changed patient into hospital gown, and threw out paper scrubs. Alerted RN Aubree.
[2024-12-20 05:05] LABS: Add Manual Diff / Slide Review NO; Basophils Absolute Auto 0 /uL (0-100); Basophils Percent Auto 0.8 % (0-2); Eosinophils Absolute Auto 200 /uL (0-450); Eosinophils Percent Auto 3.5 % (2-4); Hematocrit 25.9 % (41-53); Hemoglobin 8.7 g/dL (13.5-17.5); Lymphocytes Absolute Auto 1800 /uL (1100-4500); Lymphocytes Percent Auto 30.1 % (25-40); Mean Corpuscular HGB Conc 33.8 % (30-36); Mean Corpuscular Hemoglobin 28.5 PG (26-34); Mean Corpuscular Volume 84.3 fL (80-100); Monocytes Absolute Auto 700 /uL (0-900); Monocytes Percent Auto 12.2 % (3-14); Neutrophils Absolute Auto 3300 /uL (1500-7000); Neutrophils Percent Auto 53.4 % (50-75); Platelet Count 127 X10^3/uL (150-400); Red Blood Cell Count 3.07 X10^6/uL (4.5-5.9); Red Cell Distribution Width 19.1 % (11.6-14.8); White Blood Cell Count 6.1 X10^3/uL (4.5-11.0)
--- NOTE | 2024-12-20 05:08 | PC.NURSE ---
Imaging at bedside
--- NOTE | 2024-12-20 05:10 | PC.NURSE ---
2nd set of blood cultures drawn with 21g butterfly needle from left wrist without complications.
[2024-12-20] MEDS: cefTRIAXone 2,000 MG in SODIUM CHLORIDE 0.9% 100 ML 200 MG IV (05:13)
[2024-12-20 05:16] LABS: Alanine Aminotransferase 25 IU/L (<50); Albumin 4.1 g/dL (3.5-5.0); Alkaline Phosphatase 119 U/L (38-126); Aspartate Aminotransferase 82 IU/L (17-59); BUN Creatinine Ratio 8.2 (6-22); Blood Urea Nitrogen 7 mg/dL (9-20); Calcium 8.6 mg/dL (8.4-10.2); Carbon Dioxide 23 mmol/L (22-32); Chloride 106 mmol/L (98-107); Estimated Glomerular Filt Rate > 60 mL/min (>60); Globulin 4.2 g/dL (1.7-4.1); Glucose 130 mg/dL (70-100); HEMOLYSIS < 15 (0-50); Lactate (Lactic Acid) 1.4 mmol/L (0.7-2.1); Magnesium 1.5 mg/dL (1.6-2.3); Potassium 3.4 mmol/L (3.4-5.1); Sodium 138 mmol/L (137-145); Total Protein 8.3 g/dL (6.3-8.2)
[2024-12-20 05:20] LABS: Acetaminophen < 10 ug/mL (10-30); Ethanol (ETOH) 258 mg/dL; Salicylate < 1.0 mg/dL (<20)
[2024-12-20 05:52] LABS: TSH w/ Reflex to FT4 2.48 uIU/mL (0.47-4.68)
--- NOTE | 2024-12-20 06:07 | PC.NURSE ---
Pt insisting on getting out of stretcher and going to the bathroom. Informed pt that condom cath was placed so that wouldn't be necessary. Pt sliding self to end of bed. Continued to speak with patient the importance of staying in stretcher to decrease risk of injury and use of voiding tools made available. Pt continues to move about seeming to attempt to get out of stretcher. Dr. Irving made aware and at bedside.
--- NOTE | 2024-12-20 07:39 | DI.MRI.S_ITS ---
PROCEDURE: MR FOOT RT WO/W CON INDICATIONS: Worsening osteomyelitis 5th digit TECHNIQUE: Noncontrast coronal T1 spin echo and STIR, sagittal T1 spin echo with fat saturation and STIR, axial T1 spin echo and T2 fast spin echo with fat saturation. After the administration of contrast, axial/sagittal/coronal T1 spin echo with fat saturation through the right foot. COMPARISON: [facility], MR, MR FOOT RT WO/W CON, 11/25/2024, 14:53. FINDINGS: Image quality: Excellent. Bones: Mild osteoarthritic changes are seen throughout midfoot and forefoot. Finding is more notably involving MTP joints with joint space narrowing, subchondral sclerosis and small marginal osteophyte formation. Deformity involving 5th proximal phalanx with mild marrow edema. Mild edema is also noted involving adjacent 5th metatarsal head. Subtle contrast enhancement is seen in the above-mentioned area of edema. Subtle cortical erosion is also seen involving 5th proximal phalangeal base and 5th metatarsal head. No other area of abnormal marrow signal or enhancement is seen. No acute fracture or dislocation. Soft tissues: Marked soft tissue edema and swelling throughout midfoot and forefoot is seen particularly over dorsal and lateral aspect of forefoot. Ulceration involving plantar aspect of 5th toe at the level of 5th MTP joint is seen. No discrete drainable peripherally enhancing fluid collection is noted. Visualized plantar foot muscles show diffuse edema suggestive of myositis. No area of abnormal intramuscular fluid or enhancing mass. IMPRESSION: 1. Ulceration over plantar aspect of 5th MTP joint with extensive cellulitis throughout midfoot and forefoot. No discrete drainable abscess collection. Suggestion of myositis throughout visualized plantar foot muscles without intramuscular fluid collection or mass. 2. Mild midfoot and forefoot joint osteoarthritis most notably involving 5th MTP joint. There are deformities and subtle erosive changes with marrow edema involving 5th proximal phalangeal base and adjacent 5th metatarsal head with mild contrast enhancement concerning for osteomyelitis of indeterminate age. Small amount of fluid within 5th MTP joint is seen with thickened synovial lining and mild enhancement, septic arthritis cannot be excluded. Dictated by: Jeffry Steiner M.D. on 12/20/2024 at 8:51 Approved by: Jeffry Steiner M.D. on 12/20/2024 at 8:56
--- NOTE | 2024-12-20 08:26 | PC.NURSE ---
Placed seizure pads on patient's bedrails.
--- NOTE | 2024-12-20 08:43 | PC.NURSE ---
Pt's Cheri calls to request an update. Pt gave permission to update Cheri on his status. Cheri does inform me that pt drinks 6-12 crappy beers a day baseline. Cheri does drink alcohol herself and states she drinks much less than pt. She does say it would probably be beneficial for her to go to a alcohol rehab center. Cheri wants to seek alcohol detox for patient also.
[2024-12-20 08:55] LABS: C-Reactive Protein Quant 2.1 mg/dL (<1.0)
--- NOTE | 2024-12-20 09:13 | PC.NURSE ---
Pt's O2 sats dropped to 67% with three stars on monitor as the patient was sleeping. Switched regular probe to sticker probe with no improvement. This RV SERVICE TECHNICIAN notified the patient's nurse and was put on 2L of oxygen via NC.
[2024-12-20 09:31] LABS: Erythrocyte Sedimentation Rate 65 MM/HR (0-15)
--- NOTE | 2024-12-20 12:26 | CM.DANOTE ---
ED COAL CONVEYOR OPERATOR DCP Assessment Note: Pt is a 49yo male, resident of [place], is admitted for osteomyelitis/cellulitis. Pt has a hx of ETOH use and medication non-compliance. Pt lives in a house with his and mother in law, in which he is the primary caregiver for both. Pt's Primary Care Provider is Dr. Mario Cutler and insurance is [facility] [employer] and Medicaid. Reviewed chart and discussed with multidisciplinary team pt's medical status and initial discharge needs. COAL CONVEYOR OPERATOR spoke with hospitalist briefly who noted some suspicion of encephalopathy after his assessment of patient. COAL CONVEYOR OPERATOR consulted due to pt's ETOH use (BAL 258 at 0500 on 12/20/24) and non compliance with medications/caring for medical needs. ED COAL CONVEYOR OPERATOR met w/patient at bedside; introduced self and role. Patient was found in bed, oriented but lethargic, cooperative with assessment. Pt confirmed living situation and recent history of attempting home infusions after discharge from hospital (11/22/2024-11/27/2024). Patient states, It was a bad day when home infusions nurse came to his home to attempt teaching. Pt states preference for home IV plans again, seems regretful that he was not able to maintain that plan. Pt is noted to speak slowly, stuttering and exhibits some aphasia. Pt identifies this himself as well, I don't know why I can't seem to talk. I know it's not the booze. This COAL CONVEYOR OPERATOR notes that during previous ED presentations, even after heavy ETOH use, pt was not stuttering or exhibiting aphasia. ED COAL CONVEYOR OPERATOR discussed goals of care briefly, utilizing a motivational, strengths-based approach. Pt identified that he would want to do everything he can to avoid amputation. Pt is tearful when discussing possible SNF referral, I just can't go to [facility]. Patient expressed a previous hx with that facility and his family member. ED COAL CONVEYOR OPERATOR discussed other SNFs in [facility] and pt still declines, states he is motivated for a home IV plan or even reporting to the IV clinic daily until course is complete. Pt interested to discuss medical plan of care with multidisciplinary team. Pt not able to clearly identify barriers to going to a SNF; COAL CONVEYOR OPERATOR discussed being the primary caregiver for his vs. anxiety of being away from home, pt was evasive and started to cry more. Pt did question length of stay at a SNF and stated, I can't imagine being left at a facility forever. ETOH: Pt has been noted to drink 6-12 beers a day. Pt has historically had good insight to his use, has accepted [facility] referral during previous ED presentations but it is unclear if pt followed through with outpatient plan. Pt would benefit from inpatient rehab if/when medically cleared. Same barriers of anxiety could apply to inpatient rehab as well. Plan: Admission to acute care for IV abx course. CM team will follow closely for coordination of discharge plans. Miriam Cutler [facility] Discharge Planning/Care Management CM Discharge Assessment Start: 12/20/24 12:23 Freq: Status: Active Protocol: Document 12/20/24 12:23 MW (Rec: 12/20/24 12:26 MW [id number]) Discharge Planning Assessment Assigned Coagulating Drying Supervisor REE Pineda DPOA/Assigned Designee Name Cheri, Contact Information [phone] Advance Directives? No History Provided By Patient,Medical Record Has Patient been admitted in last 30 Yes days? Comment 11/22/24-11/27/24 Prior Living Arrangements House Household Members spouse,family Type of transporation used prior to Relies on Others admit Independent with ADL's Yes Is patient alert and oriented? Yes Needs Assistance With Managing Medications Caregiver for Another No Discharge Plan Home Review Status In Process Please Provide Date Initial DC 12/20/24 Assessment Was Performed Next Review Type Continued Stay Review
--- NOTE | 2024-12-20 12:32 | PM.HP.1 ---
History of Present Illness History of Present Illness Date Patient Seen: 12/20/24 Time Patient Seen: 12:33 Chief complaint: ETOH Narrative: This is a 49-year-old male with alcoholism, previous alcohol withdrawal syndrome, right foot neuropathic ulcer with osteomyelitis, hepatosplenomegaly, portal hypertension, peripheral neuropathy and hypertension who presents with alcohol withdrawal and continued right foot cellulitis/osteomyelitis. He was here for 5 days in October and then discharged with a plan to complete 2 weeks of empiric ceftriaxone for the osteomyelitis, which would have ended on December 06. He had returned to the ED once since then stating that he was not comfortable giving himself the antibiotic so it is unclear whether he ever finished it. He says that his PICC line was caught on something and came out about 2 days ago. He really can not give any other history other than needing a new plan for treatment and wanting to stop drinking. He is speaking very slowly and appears to be encephalopathic. He has very diminished recall ability. He does not report any fevers or foot pain. He does have dense neuropathic changes in his feet, likely related to alcohol use and so has very little feeling. He also has a recent CT scan showing hepatosplenomegaly and portal hypertension so likely has end-stage liver disease. An ammonia level is pending. A repeat MRI shows continued osteomyelitis of the right 5th metatarsal at the MTP joint. Orthopedics will be consulted. The patient has been very clear that he does not wish to have amputation treatment and would ?rather .? His hemoglobin remains suppressed and unchanged at 8.7 with a bilirubin of 2.0. The admitting alcohol level is 258. He has a distinctive alcoholic odor to his breath. [facility] Medical History (Updated 12/20/24 @ 12:48 by Juan Antonio Hanson MD) Hepatosplenomegaly Portal hypertension Hepatosplenomegaly Foot osteomyelitis, right Neuropathic foot ulcer Decreased libido Erectile dysfunction Alcohol abuse (~2017) Low back pain (Unknown) Polyneuropathy (Unknown) Acne (Unknown) Hypertension (2004) Essential hypertension (09/12/16) Surgical History (Updated 12/20/24 @ 12:49 by Juan Antonio Hanson MD) H/O surgical amputation of finger Hx of cholecystectomy (2001) Family History (Updated 12/20/24 @ 12:50 by Juan Antonio Hanson MD) Grandmother Mental health problem Grandfather Cancer Grandmother Cancer Mother History of back problems Father Amputation leg, bilat Social History household members: spouse and family Smoking Status: Current every day smoker Tobacco: How many years used: 1 Smokeless tobacco user: chewing tobacco (many, many years) alcohol intake: current substance use type: does not use Meds Home Medications and Allergies Home Medications Medication Instructions Recorded Confirmed Type pregabalin 75 mg capsule 75 mg PO TID 09/26/22 11/23/24 History furosemide 40 mg tablet (Lasix) 40 mg PO DAILY #30 tabs 11/18/24 11/23/24 Rx spironolactone 25 mg tablet 25 mg PO DAILY #30 tabs 11/18/24 11/23/24 Rx potassium chloride 20 mEq 20 meq PO DAILY #30 tabs 11/27/24 Rx tablet,extended release(part/cryst) (Klor-Con M) Allergies Allergy/AdvReac Type Severity Reaction Status Date / Time No Known Drug Allergies Allergy Verified 11/30/24 18:14 Review of Systems Review of Systems Narrative: Positive for confusion, slurred speech, foot ulcer. Negative for foot pain, fevers, chills, sweats, coughing, chest pain, abdominal pain, nausea, vomiting, diarrhea, dysuria, joint pain, sore throat and headache. Exam Vital Signs (past 8 hours): - 12/20/24 04:46 12/20/24 04:53 12/20/24 05:01 Temperature 98.5 F Pulse Rate 111 H 110 H 109 H Respiratory Rate 17 Blood Pressure 126/63 Pulse Oximetry 100 100 100 Oxygen Delivery Method Room Air Oxygen Flow Rate 12/20/24 05:01 12/20/24 05:30 12/20/24 05:30 Temperature Pulse Rate 101 H Respiratory Rate 18 Blood Pressure 124/58 L 111/56 L Pulse Oximetry 99 Oxygen Delivery Method Room Air Oxygen Flow Rate 12/20/24 06:00 12/20/24 06:00 12/20/24 06:30 Temperature Pulse Rate 102 H 105 H Respiratory Rate 18 22 Blood Pressure 115/58 L Pulse Oximetry 100 99 Oxygen Delivery Method Room Air Oxygen Flow Rate 12/20/24 07:28 12/20/24 07:30 12/20/24 07:31 Temperature Pulse Rate 105 H 102 H Respiratory Rate 16 Blood Pressure 120/67 Pulse Oximetry 99 100 Oxygen Delivery Method Room Air Oxygen Flow Rate 12/20/24 07:31 12/20/24 08:00 12/20/24 08:00 Temperature Pulse Rate 103 H 101 H Respiratory Rate 16 18 Blood Pressure 126/56 L Pulse Oximetry 100 96 Oxygen Delivery Method Room Air Oxygen Flow Rate 12/20/24 08:30 12/20/24 08:30 12/20/24 09:00 Temperature Pulse Rate 100 H 96 H Respiratory Rate 20 16 Blood Pressure 125/62 Pulse Oximetry 98 97 Oxygen Delivery Method Room Air Room Air Oxygen Flow Rate 12/20/24 09:00 12/20/24 09:07 12/20/24 09:10 Temperature Pulse Rate Respiratory Rate Blood Pressure 107/56 L Pulse Oximetry 80 L 98 Oxygen Delivery Method Room Air Nasal Cannula Oxygen Flow Rate 2 12/20/24 09:30 12/20/24 09:30 12/20/24 09:47 Temperature Pulse Rate 85 Respiratory Rate 18 Blood Pressure 102/56 L 104/57 L Pulse Oximetry 99 Oxygen Delivery Method Nasal Cannula Oxygen Flow Rate 2 12/20/24 09:47 12/20/24 10:00 12/20/24 10:00 Temperature Pulse Rate 87 86 Respiratory Rate 17 16 Blood Pressure 103/56 L Pulse Oximetry 98 98 Oxygen Delivery Method Nasal Cannula Oxygen Flow Rate 2 12/20/24 10:15 12/20/24 10:15 12/20/24 10:30 Temperature Pulse Rate 93 H Respiratory Rate 14 Blood Pressure 105/59 L 107/57 L Pulse Oximetry 99 Oxygen Delivery Method Nasal Cannula Oxygen Flow Rate 2 12/20/24 10:30 12/20/24 10:32 12/20/24 10:45 Temperature Pulse Rate 84 Respiratory Rate 16 Blood Pressure 104/58 L Pulse Oximetry 100 Oxygen Delivery Method Nasal Cannula Nasal Cannula Oxygen Flow Rate 2 1 12/20/24 10:45 12/20/24 11:00 12/20/24 11:00 Temperature Pulse Rate 89 83 Respiratory Rate 15 22 Blood Pressure 102/57 L Pulse Oximetry 99 99 100 Oxygen Delivery Method Nasal Cannula Room Air Oxygen Flow Rate 1 12/20/24 11:15 12/20/24 11:15 12/20/24 11:30 Temperature Pulse Rate 92 H Respiratory Rate 15 Blood Pressure 110/58 L 117/58 L Pulse Oximetry 98 Oxygen Delivery Method Oxygen Flow Rate 12/20/24 11:30 12/20/24 11:35 12/20/24 11:42 Temperature Pulse Rate 95 H Respiratory Rate 20 Blood Pressure Pulse Oximetry 98 95 80 L Oxygen Delivery Method Room Air Room Air Room Air Oxygen Flow Rate 12/20/24 11:45 Temperature Pulse Rate Respiratory Rate Blood Pressure Pulse Oximetry 100 Oxygen Delivery Method Nasal Cannula Oxygen Flow Rate 1 Oxygen Delivery Method Nasal Cannula Oxygen Flow Rate 1 Narrative Exam Narrative: He is alert and oriented x3. His speech is very slow and his processing of answers to simple questions is frequently incomplete and wandering off. No apparent distress Distinctive fruity type breath odor. Pupils are equally round and reactive to light and accommodation. Sclerae are pink and nonicteric No lymph nodes are felt head, neck, supraclavicular area Extraocular muscles are intact Throat looks normal JVD is less than 6 cm No carotid bruits are heard No thyromegaly Heart is regular rate and rhythm without murmur Lungs are clear to auscultation bilaterally Abdomen is soft, bowel sounds positive, nontender, no organomegaly 1+ edema of the right ankle and foot Trace edema of the left ankle and foot 2.5 cm pink granulating ulcer on the bottom of the right 5th MTP joint with pus oozing from a small hole in the center. Neurologic exam: Mild asterixis is present. No tremor. Cranial nerves 2-12 test intact Motor function is 3/5 throughout Movements and responses are generally slowed Deep tendon reflexes are suppressed bilaterally Skin has no rash or jaundice appearance. Objective Imaging MRI Foot: Radiologist's impression: PROCEDURE: MR FOOT RT WO/W CON INDICATIONS: Worsening osteomyelitis 5th digit TECHNIQUE: Noncontrast coronal T1 spin echo and STIR, sagittal T1 spin echo with fat saturation and STIR, axial T1 spin echo and T2 fast spin echo with fat saturation. After the administration of contrast, axial/sagittal/coronal T1 spin echo with fat saturation through the right foot. COMPARISON: [facility], , MR FOOT RT WO/W CON, 11/25/2024, 14:53. FINDINGS: Image quality: Excellent. Bones: Mild osteoarthritic changes are seen throughout midfoot and forefoot. Finding is more notably involving MTP joints with joint space narrowing, subchondral sclerosis and small marginal osteophyte formation. Deformity involving 5th proximal phalanx with mild marrow edema. Mild edema is also noted involving adjacent 5th metatarsal head. Subtle contrast enhancement is seen in the above-mentioned area of edema. Subtle cortical erosion is also seen involving 5th proximal phalangeal base and 5th metatarsal head. No other area of abnormal marrow signal or enhancement is seen. No acute fracture or dislocation. Soft tissues: Marked soft tissue edema and swelling throughout midfoot and forefoot is seen particularly over dorsal and lateral aspect of forefoot. Ulceration involving plantar aspect of 5th toe at the level of 5th MTP joint is seen. No discrete drainable peripherally enhancing fluid collection is noted. Visualized plantar foot muscles show diffuse edema suggestive of myositis. No area of abnormal intramuscular fluid or enhancing mass. IMPRESSION: 1. Ulceration over plantar aspect of 5th MTP joint with extensive cellulitis throughout midfoot and forefoot. No discrete drainable abscess collection. Suggestion of myositis throughout visualized plantar foot muscles without intramuscular fluid collection or mass. 2. Mild midfoot and forefoot joint osteoarthritis most notably involving 5th MTP joint. There are deformities and subtle erosive changes with marrow edema involving 5th proximal phalangeal base and adjacent 5th metatarsal head with mild contrast enhancement concerning for osteomyelitis of indeterminate age. Small amount of fluid within 5th MTP joint is seen with thickened synovial lining and mild enhancement, septic arthritis cannot be excluded. Dictated by: Jeffry Steiner M.D. on 12/20/2024 at 8:51 CT scan - abdomen: Radiologist's impression: [place] [address] CT Scan Report Signed Patient: Eric Fontenot MR#: [id number] : 1975 Acct:[id number] Age/Sex: 49 / M Date of Service: 11/18/24 Loc: ED Accession Number: [id number] Procedure: CT abdomen pelvis w con Ordering Provider: Deirdre Stokes MD PROCEDURE: CT ABDOMEN PELVIS W CON INDICATIONS: ABDOMINAL DISTENSION, ETOH ABUSE TECHNIQUE: After the administration of intravenous contrast, axial sections acquired from the lung bases to the pubic symphysis. Coronal and sagittal reformats were performed. For radiation dose reduction, the following was used: automated exposure control, adjustment of mA and/or kV according to patient size. COMPARISON: None. FINDINGS: Image quality: Diagnostic Lower chest: No basal opacities identified. Mild nonspecific distal esophageal wall thickening. Normal heart size. Liver: Hepatomegaly and steatosis. Gallbladder and biliary system: Gallbladder is absent. No biliary ductal dilation Pancreas: No ductal dilation. Mild peripancreatic fat stranding. Spleen: Splenomegaly Adrenals: No discrete nodules Kidneys: No solid mass or hydronephrosis. Nonobstructing small left lower pole calculus. Vessels and lymph nodes: The main portal vein is patent. No abdominal aortic aneurysm. No pathologic lymph nodes by size criteria. Portal venous varices are seen. Bowel and peritoneum: Mild proximal wall thickening of the stomach. No bowel obstruction. No pathologic ascites. Colonic diverticula. Mesenteric fat stranding is present. No drainable ascites. Body wall: Small fat containing umbilical and inguinal hernias. Pelvis: Bladder is unremarkable. Prostate is unremarkable. Bones: No acute or suspicious osseous findings. There are degenerative changes. IMPRESSION: Hepatosplenomegaly. Portal venous varices are seen with mesenteric congestion likely portal hypertension. Hepatic steatosis. Mild wall thickening of the distal esophagus and proximal stomach could represent gastroesophagitis versus portal congestion. Peripancreatic fat stranding, correlate lipase. Other findings above. Dictated by: Roberto Carlos Arellano M.D. on 11/18/2024 at 19:24 Labs 12/20/24 04:54 12/20/24 04:54 Labs: Laboratory Results - last 24 hr 12/20/24 12/20/24 04:54 08:34 WBC 6.1 RBC 3.07 L Hgb 8.7 L Hct 25.9 L MCV 84.3 MCH 28.5 MCHC 33.8 RDW 19.1 H Plt Count 127 L Neut % (Auto) 53.4 Lymph % (Auto) 30.1 [place] % (Auto) 12.2 Eos % (Auto) 3.5 Baso % (Auto) 0.8 Neut # (Auto) 3300 Lymph # (Auto) 1800 [place] # (Auto) 700 Eos # (Auto) 200 Baso # (Auto) 0 ESR 65 H Sodium 138 Potassium 3.4 Chloride 106 Carbon Dioxide 23 BUN 7 L Creatinine 0.85 Estimated GFR > 60 BUN/Creatinine Ratio 8.2 Glucose 130 H Lactate 1.4 Calcium 8.6 Magnesium 1.5 L Total Bilirubin 2.0 H AST 82 H ALT 25 Alkaline Phosphatase 119 C-Reactive Protein 2.1 H Total Protein 8.3 H Albumin 4.1 Globulin 4.2 H Albumin/Globulin Ratio 1.0 TSH 2.48 Salicylates < 1.0 Acetaminophen < 10 Ethyl Alcohol 258 H Assessment & Plan Assessment & Plan narrative: This is a 49-year-old male with alcoholism, previous alcohol withdrawal syndrome, right foot neuropathic ulcer with osteomyelitis, hepatosplenomegaly, portal hypertension, peripheral neuropathy and hypertension who presents with alcohol withdrawal and continued right foot cellulitis/osteomyelitis. He was here for 5 days in October and then discharged with a plan to complete 2 weeks of empiric ceftriaxone for the osteomyelitis, which would have ended on December 06. Alcohol withdrawal, present on admission -patient presents with an alcohol level of 258, stating that he does not want to continue drinking -he was here for 5 days in October and experienced mild alcohol withdrawal symptoms. -follow CIWA score and add lorazepam as needed. -begin magnesium oxide and thiamine daily -consider for admission/referral to inpatient alcohol chemical dependency treatment. Worsening osteomyelitis and neuropathic plantar ulcer of right 5th MTP joint, present on admission -ESR 65 with CRP 2.1 on admission -MRI shows progression of the infection despite the 2 weeks of ceftriaxone. -admitted to reset the treatment program and consider options at this point -orthopedics has suggested that amputation would be 1 of the options and the patient has been emphatic that he would ?rather ?. -begin vancomycin and ceftriaxone. -wound culture of an area of purulent drainage in the center of the ulcer. Normocytic anemia -hemoglobin stable at 8.7 compared to 11/30. MCV 84.3. -likely alcohol-related despite absence of macrocytosis. -check B12 and iron level Polyneuropathy involving stocking distribution -likely alcohol related -continues on pregabalin Hypomagnesemia -magnesium 1.5 on admission -related to malnourishment of chronic alcoholism -begin Mag oxide 400 mg b.i.d. Portal hypertension/hepatosplenomegaly -likely end-stage alcoholic liver disease -slowed mentation and processing suggestive of hepatic encephalopathy, check ammonia level Disposition: This depends on whether he has surgery and how long the duration of antibiotics he needs. -likely to need long term facility for prolonged antibiotic course. With alcoholism and recent failure of treatment he is too high risk to go home on IV antibiotics. DVT prevention-continue Lovenox Time-Based Coding :: [TOTAL MINUTES] spent with patient and on the chart (including review of chart, obtaining history, exam, reviewing outside data, placing orders, documenting exam and treatment plan, and counseling patient) on [DATE].
[2024-12-20] MEDS: SODIUM CHLORIDE 0.9% 1,000 ML 100 ML IV (13:14)
[2024-12-20] MEDS: CEFEPIME 2 GM in SODIUM CHLORIDE 0.9% 100 ML IV (13:15)
[2024-12-20 13:30] LABS: Ammonia (NH3) 62 umol/L (9-30)
[2024-12-20] MEDS: VANCOMYCIN 1,500 MG/300 ML PIGGYBACK 200 MG IV (13:59)
[2024-12-20] MEDS: LORazepam 1 MG TABLET PO ×2 (15:42→21:02)
[2024-12-20] MEDS: MAGNESIUM OXIDE 400 MG TABLET PO (21:02)
[2024-12-20] MEDS: NICOTINE 21 MG PATCH TOP (22:40)
--- NOTE | 2024-12-20 23:15 | PC.NURSE ---
NOC: Returned pt's (Cheri) phone call ([phone]); no answer, left VM.
[2024-12-21] VITALS (8 sets, daily range): BP systolic 122–147; BP diastolic 76–91; PULSE 90–118; RESP 14–22; TEMP 37–37.4; O2SAT 98–100
[2024-12-21] MEDS: CEFEPIME 2 GM in SODIUM CHLORIDE 0.9% 100 ML IV ×2 (00:39→12:05)
[2024-12-21] MEDS: SODIUM CHLORIDE 0.9% 1,000 ML 100 ML IV ×2 (00:40→12:04)
[2024-12-21] MEDS: LORazepam 1 MG TABLET PO ×3 (01:31→21:10)
--- NOTE | 2024-12-21 01:53 | PC.NURSE ---
NOC: Pt reported steadily increasing 8 out of 10 aching foot pain due to R foot wound. Asked pt to clarify if pain is d/t baseline neuropathy or to wound, pt clarified that it feels more like the wound. No pain meds ordered. Contacted MD Bullock who gave orders for 5mg Oxycodone PO Q4. Plan of care ongoing.
[2024-12-21] MEDS: VANCOMYCIN 1,500 MG/300 ML PIGGYBACK 200 MG IV ×2 (02:11→14:19)
[2024-12-21] MEDS: OXYCODONE IR 5 MG TABLET PO ×3 (04:28→21:25)
[2024-12-21 06:29] LABS: Add Manual Diff / Slide Review NO; Basophils Absolute Auto 0 /uL (0-100); Basophils Percent Auto 0.9 % (0-2); Eosinophils Absolute Auto 200 /uL (0-450); Eosinophils Percent Auto 4.1 % (2-4); Hematocrit 25.1 % (41-53); Hemoglobin 8.5 g/dL (13.5-17.5); Lymphocytes Absolute Auto 900 /uL (1100-4500); Lymphocytes Percent Auto 21.4 % (25-40); Mean Corpuscular HGB Conc 33.9 % (30-36); Mean Corpuscular Hemoglobin 28.5 PG (26-34); Mean Corpuscular Volume 84.1 fL (80-100); Monocytes Absolute Auto 500 /uL (0-900); Monocytes Percent Auto 11.6 % (3-14); Neutrophils Absolute Auto 2600 /uL (1500-7000); Platelet Count 97 X10^3/uL (150-400); Red Blood Cell Count 2.98 X10^6/uL (4.5-5.9); White Blood Cell Count 4.2 X10^3/uL (4.5-11.0)
[2024-12-21 06:39] LABS: Alanine Aminotransferase 22 IU/L (<50); Albumin 3.2 g/dL (3.5-5.0); Albumin Globulin Ratio 0.9 (1.0-2.8); Alkaline Phosphatase 109 U/L (38-126); Aspartate Aminotransferase 61 IU/L (17-59); BUN Creatinine Ratio 8.2 (6-22); Bilirubin Total 2.2 mg/dL (0.2-1.3); Blood Urea Nitrogen 6 mg/dL (9-20); Calcium 8.7 mg/dL (8.4-10.2); Carbon Dioxide 25 mmol/L (22-32); Chloride 106 mmol/L (98-107); Estimated Glomerular Filt Rate > 60 mL/min (>60); Globulin 3.7 g/dL (1.7-4.1); Glucose 107 mg/dL (70-100); HEMOLYSIS < 15 (0-50); Potassium 3.4 mmol/L (3.4-5.1); Sodium 135 mmol/L (137-145); Total Protein 6.9 g/dL (6.3-8.2)
[2024-12-21 06:43] LABS: HEMOLYSIS < 15 (0-50); Iron 30 ug/dL (49-181)
[2024-12-21 06:54] LABS: Percent Iron Saturation 10 % (20-50); Total Iron Binding Capacity 296 ug/dL (261-462); Transferrin 247 mg/dL (206-381)
--- NOTE | 2024-12-21 07:32 | P.PN_ITS ---
Subjective Subjective Date Patient Seen: 12/21/24 Interval history: He is seen today to follow-up his alcohol withdrawal and foot osteomyelitis. He is discussed with Orthopedic surgery, Dr. Liz who says he would continue to recommend a below-knee amputation as he would not consider a transmetatarsal amputation to be very functional. He is recommending outpatient follow-up with Dr. Mancini or Dr. Jay in their office. He did not feel that a hospital consultation would contribute more than those directions. The patient sounds like he is somewhat interested in a TMA but not a BKA. He is definitely speaking at a more normal pace, thinking more clearly now that his high alcohol level has come down. The hemoglobin is stable at 8.5. The white count is 4.2. The potassium is 3.4. He will be given additional oral potassium. The iron level is 30 so we will begin treatment with iron infusions. His total bilirubin is 2.2. The AST has dropped to 61. The gram stain on the foot wound culture is Gram-positive cocci. His heart rate is 107. The ammonia level was high at 62 so lactulose will be given today. His home Lasix dosing will also be resumed. Exam Vital Signs (past 8 hours): - 12/21/24 00:00 12/21/24 02:58 12/21/24 04:00 Temperature 99.1 F 99.4 F Pulse Rate 118 H 90 107 H Respiratory Rate 18 14 18 Blood Pressure 147/80 H 145/79 H Pulse Oximetry 99 99 Oxygen Flow Rate 0 0 Fraction of Inspired Oxygen 24 SaO2/FiO2 Ratio 383 Oxygen Delivery Method Nasal Cannula Oxygen Flow Rate 0 Narrative Exam Narrative: He is alert and oriented x3. His pacing is still slow but much better than yesterday. No apparent distress. Heart is regular rate and rhythm without murmur Lungs are clear to auscultation bilaterally Extremities have no ankle edema. There is a dressing covering the ulcer of the right foot 5th metatarsal prominence. Objective Labs 12/21/24 06:10 12/21/24 06:10 Labs: Laboratory Results - last 24 hr 12/20/24 12/20/24 12/21/24 08:34 13:05 06:10 WBC 4.2 L RBC 2.98 L Hgb 8.5 L Hct 25.1 L MCV 84.1 MCH 28.5 MCHC 33.9 RDW 19.0 H Plt Count 97 L Neut % (Auto) 62.0 Lymph % (Auto) 21.4 L [place] % (Auto) 11.6 Eos % (Auto) 4.1 H Baso % (Auto) 0.9 Neut # (Auto) 2600 Lymph # (Auto) 900 L [place] # (Auto) 500 Eos # (Auto) 200 Baso # (Auto) 0 ESR 65 H Sodium 135 L Potassium 3.4 Chloride 106 Carbon Dioxide 25 BUN 6 L Creatinine 0.73 Estimated GFR > 60 BUN/Creatinine Ratio 8.2 Glucose 107 H Calcium 8.7 Iron 30 L TIBC 296 % Saturation 10 L Transferrin 247 Total Bilirubin 2.2 H AST 61 H ALT 22 Alkaline Phosphatase 109 Ammonia 62 H C-Reactive Protein 2.1 H Total Protein 6.9 Albumin 3.2 L Globulin 3.7 Albumin/Globulin Ratio 0.9 L PFSH Medical History (Updated 12/20/24 @ 12:48 by Juan Antonio Hanson MD) Hepatosplenomegaly Portal hypertension Hepatosplenomegaly Foot osteomyelitis, right Neuropathic foot ulcer Decreased libido Erectile dysfunction Alcohol abuse (~2016) Low back pain (Unknown) Polyneuropathy (Unknown) Acne (Unknown) Hypertension (2004) Essential hypertension (09/12/16) Surgical History (Updated 12/20/24 @ 12:49 by Juan Antonio Hanson MD) H/O surgical amputation of finger Hx of cholecystectomy (2001) Family History (Updated 12/20/24 @ 12:50 by Juan Antonio Hanson MD) Grandmother Mental health problem Grandfather Cancer Grandmother Cancer Mother History of back problems Father Amputation leg, bilat Social History household members: spouse and family Smoking Status: Never smoker Tobacco: How many years used: 1 Smokeless tobacco user: chewing tobacco (many, many years) alcohol intake: current substance use type: does not use Assessment & Plan Assessment & Plan narrative: This is a 49-year-old male with alcoholism, previous alcohol withdrawal syndrome, right foot neuropathic ulcer with osteomyelitis, hepatosplenomegaly, portal hypertension, peripheral neuropathy and hypertension who presents with alcohol withdrawal and continued right foot cellulitis/osteomyelitis. He was here for 5 days in October and then discharged with a plan to complete 2 weeks of empiric ceftriaxone for the osteomyelitis, which would have ended on December 06. Alcohol withdrawal, present on admission -patient presents with an alcohol level of 258, stating that he does not want to continue drinking -he was here for 5 days in October and experienced mild alcohol withdrawal symptoms. -follow CIWA score and add lorazepam as needed. -Magnesium oxide and thiamine daily -consider for admission/referral to inpatient alcohol chemical dependency treatment. Worsening osteomyelitis and neuropathic plantar ulcer of right 5th MTP joint, present on admission -ESR 65 with CRP 2.1 on admission -MRI shows progression of the infection despite the 2 weeks of ceftriaxone. -admitted to reset the treatment program and consider options at this point -orthopedics has suggested that amputation would be 1 of the options and the patient has been emphatic that he would ?rather ?. -per phone consult with Dr. Liz on 12/21, not much to add at this point beyond a BKA, which the patient declines. TMA would not be as functional. Should follow up as an outpatient with Dr. Cullen or Dr. Jay. -Vancomycin and ceftriaxone. -wound culture of an area of purulent drainage in the center of the ulcer, Gram Stain is gram positive Cocci. Normocytic anemia -hemoglobin stable at 8.7 compared to 11/30. MCV 84.3. -likely alcohol-related despite absence of macrocytosis. -check B12 and iron level -Iron low at 30 so will give an Iron infusion. Polyneuropathy involving stocking distribution -likely alcohol related -continues on pregabalin Hypomagnesemia -magnesium 1.5 on admission -related to malnourishment of chronic alcoholism -begin Mag oxide 400 mg b.i.d. Portal hypertension/hepatosplenomegaly -likely end-stage alcoholic liver disease -slowed mentation and processing suggestive of hepatic encephalopathy, check ammonia level -Ammonia 62, started on Lactulose 20 gm daily. Disposition: This depends on whether he has surgery and how long the duration of antibiotics he needs. -likely to need senior living facility for prolonged antibiotic course. With alcoholism and recent failure of treatment he is too high risk to go home on IV antibiotics. -Podiatry follow up as an outpatient. DVT prevention-continue Lovenox Time-Based Coding :: [TOTAL MINUTES] spent with patient and on the chart (including review of chart, obtaining history, exam, reviewing outside data, placing orders, documenting exam and treatment plan, and counseling patient) on [DATE]. Quality VTE Deep Vein Thrombosis/Pulmonary Embolism Present on Admission: No
[2024-12-21 07:33] LABS: Vitamin B12 717 pg/mL (239-931)
--- NOTE | 2024-12-21 07:55 | PC.WOUNDPHOT ---
Photo by Debra HILLS at 1:56 a.m.
[2024-12-21] MEDS: ENOXAPARIN 40 MG/0.4 ML SYRINGE SUBCUT (08:25)
[2024-12-21] MEDS: POTASSIUM CHLORIDE 20 MEQ TAB 40 MEQ PO (08:25)
[2024-12-21] MEDS: NICOTINE 21 MG PATCH TOP (08:26)
[2024-12-21] MEDS: FUROSEMIDE 40 MG TABLET PO (08:26)
[2024-12-21] MEDS: MAGNESIUM OXIDE 400 MG TABLET PO ×2 (08:26→21:10)
[2024-12-21] MEDS: LACTULOSE 20 GM/30 ML SOLUTION PO (08:26)
[2024-12-21] MEDS: THIAMINE 100 MG TABLET PO (08:26)
--- NOTE | 2024-12-21 11:32 | DIET.CONS ---
Dietary Consultation Note Admission Date: 12/20/2024 10:23 Assessment: 49 y M admitted for alcohol withdrawal and worsening osteomyelitis. RD screened for low MNA. Met with patient at bedside. Reports similar meal intake to RD assessment on 11/23/24 - handful of pecans and 1 frozen meal. Reports that some days he doesn't eat anything and just drinks beer. Notes he helps care for mother in law and who are disabled. Recent CT scan showing hepatosplenomegaly and portal hypertension. Ht: 177.8 cm Wt: 104.7 kg BMI: 33.1 UBW: 95-102 kg per pt before edema, 99.79 kg on 06/22/24, pt noted to have edema per hospitalist note Last BM: 12/21/24 (12/21/24 06:00) MNA: 10 Luis Score: 20 Diet: 12/20/24 Dinner General (Regular) Diet Diet Modifications: Nutrition Percent Meal Consumed 100% 12/20/24 18:00 Labs: RBC 2.98 X10^6/uL (4.5-5.9) L 12/21/24 06:10 Hgb 8.5 g/dL (13.5-17.5) L 12/21/24 06:10 Hct 25.1 % (41-53) L 12/21/24 06:10 Creatinine 0.73 mg/dL (0.66-1.25) 12/21/24 06:10 Lactate 1.4 mmol/L (0.7-2.1) 12/20/24 04:54 Iron 30 ug/dL (49-181) L 12/21/24 06:10 % Saturation 10 % (20-50) L 12/21/24 06:10 Nutrition Diagnosis: Moderate chronic Protein Calorie Malnutrition r/t lack of sufficient nutrient dense intake with excessive ETOH intake as evidenced by alcohol use disorder with intake of 6-15 alcoholic drinks per day, <75% of estimated energy and protein needs for >3 months per diet recall Interventions: -Monitoring PO intakes, will trial ONS to help pt meet energy-protein needs and continue if patient unable to meet EER through PO intakes EER: [id number] kcals (MSJx1.25) 100-120 g protein (1.25-1.5 g/kg per PCM and wound) Monitoring/Evaluations: PO intakes, ONS tolerance Electronically Signed by: Pretty Robledo 12/21/24 11:32 Clinical Dietitian [address] [id number]
--- NOTE | 2024-12-21 13:33 | DI.RAD.S_ITS ---
PROCEDURE: XR CHEST FOR PICC 1V INDICATIONS: line placement TECHNIQUE: One view of the chest was acquired. COMPARISON: [facility], CR, XR CHEST 1V, 11/30/2024, 18:18. [facility], CR, XR CHEST FOR PICC 1V, 11/26/2024, 18:47. [facility], CR, CHEST 1 VIEW, 04/09/2017, 18:05. FINDINGS: Surgical changes and devices: Left upper extremity central venous catheter distal tip overlying the cavoatrial junction. Lungs and pleura: Lungs are clear. No pleural effusions or pneumothorax. Mediastinum: Mediastinal contours appear normal. Heart size is normal. Bones and chest wall: No suspicious bony lesions. Overlying soft tissues appear unremarkable. IMPRESSION: Left upper extremity central venous catheter distal tip at the cavoatrial junction. Dictated by: Jordan Phillips M.D. on 12/21/2024 at 14:32 Approved by: Jordan Phillips M.D. on 12/21/2024 at 14:32
--- NOTE | 2024-12-21 14:08 | PC.NURSE ---
DI nurse placed single lumen groshong to left upper arm, CXR taken and DI nurse verified OK to use. Patient tolerated well.
--- NOTE | 2024-12-21 14:16 | CM.DPC ---
DCP Cont. Reviewed EMR and team rounds for status updates. Met with pt at bedside to introduce self and role, pt was found to be awake and oriented, but still showing some slow cognitive processing time. Per Hospitalist, Ortho will be consulting re: possible surgical amputation, possibly a partial amputation, of his R-foot due to the extensive osteomyelitis present thoughout the forefront of the foot. Pt is hopeful to have IV ABO's at home once ready for d/c. He did also express openness about discussing options for NAA OP tx. Plan to f/u with him tomorrow with resources once we know more the medical plan next steps.
[2024-12-21] MEDS: SODIUM FERRIC GLUCONAT/SUCROSE 125 MG in SODIUM CHLORIDE 0.9% 100 ML 110 MG IV (15:51)
[2024-12-21] MEDS: CALCIUM CARBONATE 500 MG TAB PO ×2 (22:35→22:37)
[2024-12-21] MEDS: SODIUM CHLORIDE 0.9% FLUSH 10 ML IV (22:35)
[2024-12-22] VITALS: BP 130/77; PULSE 92; RESP 18; TEMP 37.2; O2SAT 98
[2024-12-22] MEDS: CEFEPIME 2 GM in SODIUM CHLORIDE 0.9% 100 ML IV (00:06)
[2024-12-22] MEDS: NICOTINE 14 PATCH 14 MG TOP ×2 (00:45→08:52)
[2024-12-22] MEDS: VANCOMYCIN TROUGH 1 REQUEST MISC (02:04)
[2024-12-22 02:05] LABS: Vancomycin Trough 13.9 ug/mL (10-20)
[2024-12-22] MEDS: VANCOMYCIN 1,500 MG/300 ML PIGGYBACK 200 MG IV (02:36)
[2024-12-22] MEDS: LORazepam 1 MG TABLET PO ×3 (02:47→20:09)
[2024-12-22 04:00] VITALS: BP 135/83; PULSE 96; RESP 18; TEMP 37.2; O2SAT 100
[2024-12-22] MEDS: VANCOMYCIN PEAK 1 REQUEST MISC (04:26)
[2024-12-22 04:53] LABS: BUN Creatinine Ratio 9.1 (6-22); Blood Urea Nitrogen 7 mg/dL (9-20); Calcium 9.3 mg/dL (8.4-10.2); Carbon Dioxide 25 mmol/L (22-32); Chloride 103 mmol/L (98-107); Estimated Glomerular Filt Rate > 60 mL/min (>60); Glucose 95 mg/dL (70-100); HEMOLYSIS < 15 (0-50); Potassium 3.7 mmol/L (3.4-5.1); Sodium 134 mmol/L (137-145)
[2024-12-22 05:03] LABS: Vancomycin Peak 41.7 ug/mL (20-40)
--- NOTE | 2024-12-22 07:24 | P.PN_ITS ---
Subjective Subjective Date Patient Seen: 12/22/24 Interval history: He is seen today to follow-up his alcohol withdrawal and his foot osteomyelitis. He says that he did not take any of the ceftriaxone when he was at home. He was emotionally unable to cope with the stress of having to do a medical procedure on himself. He appears to be fully cognizant and engaged today without any intoxication at this time. The vancomycin trough was 13.9. The BMP is normal. The culture of the foot is growing light growth mixed cesar. The plan is to discuss treatment with Infectious Disease. A minimum of 6 weeks of IV antibiotics is anticipated. The patient is unwilling to have this done in a senior living facility. We will investigate whether he is willing to come to outpatient infusion? Exam Vital Signs (past 8 hours): - 12/22/24 00:00 12/22/24 04:00 Temperature 99 F 99 F Pulse Rate 92 H 96 H Respiratory Rate 18 18 Blood Pressure 130/77 135/83 Pulse Oximetry 98 100 Oxygen Flow Rate 0 0 Fraction of Inspired Oxygen 24 SaO2/FiO2 Ratio 383 Oxygen Delivery Method Room Air Oxygen Flow Rate 0 Narrative Exam Narrative: Alert and oriented x3. No apparent distress. Heart is regular rate and rhythm without murmur Lungs are clear to auscultation bilaterally Extremities have no ankle edema A dressing is in place across the ball of the right foot. Objective Labs 12/21/24 06:10 12/22/24 04:30 Labs: Laboratory Results - last 24 hr 12/21/24 12/22/24 12/22/24 06:10 01:42 04:30 Sodium 134 L Potassium 3.7 Chloride 103 Carbon Dioxide 25 BUN 7 L Creatinine 0.77 Estimated GFR > 60 BUN/Creatinine Ratio 9.1 Glucose 95 Calcium 9.3 Vitamin B12 717 Vancomycin Peak 41.7 H Vancomycin Trough 13.9 PFSH Medical History (Updated 12/20/24 @ 12:48 by Juan Antonio Hanson MD) Hepatosplenomegaly Portal hypertension Hepatosplenomegaly Foot osteomyelitis, right Neuropathic foot ulcer Decreased libido Erectile dysfunction Alcohol abuse (~2017) Low back pain (Unknown) Polyneuropathy (Unknown) Acne (Unknown) Hypertension (2004) Essential hypertension (09/12/16) Surgical History (Updated 12/20/24 @ 12:49 by Juan Antonio Hanson MD) H/O surgical amputation of finger Hx of cholecystectomy (2001) Family History (Updated 12/20/24 @ 12:50 by Juan Antonio Hanson MD) Grandmother Mental health problem Grandfather Cancer Grandmother Cancer Mother History of back problems Father Amputation leg, bilat Social History household members: spouse and family Smoking Status: Never smoker Tobacco: How many years used: 1 Smokeless tobacco user: chewing tobacco (many, many years) alcohol intake: current substance use type: does not use Assessment & Plan Assessment & Plan narrative: This is a 49-year-old male with alcoholism, previous alcohol withdrawal syndrome, right foot neuropathic ulcer with osteomyelitis, hepatosplenomegaly, portal hypertension, peripheral neuropathy and hypertension who presents with alcohol withdrawal and continued right foot cellulitis/osteomyelitis. He was here for 5 days in October and then discharged with a plan to complete 2 weeks of empiric ceftriaxone for the osteomyelitis, which would have ended on December 06. Alcohol withdrawal, present on admission -patient presents with an alcohol level of 258, stating that he does not want to continue drinking -he was here for 5 days in October and experienced mild alcohol withdrawal symptoms. -on 12/22 he is noted to be no longer intoxicated and does not appear to be experiencing any withdrawal symptoms. -Magnesium oxide and thiamine daily -consider for admission/referral to inpatient alcohol chemical dependency treatment. Worsening osteomyelitis and neuropathic plantar ulcer of right 5th MTP joint, present on admission -ESR 65 with CRP 2.1 on admission -MRI shows progression of the infection despite the 2 weeks of ceftriaxone (once the patient was no longer intoxicated he admitted that he had not taken any of the ceftriaxone). -admitted to reset the treatment program and consider options at this point -orthopedics has suggested that amputation would be 1 of the options and the patient has been emphatic that he would ?rather ?. -per phone consult with Dr. Liz on 12/21, not much to add at this point beyond a BKA, which the patient declines. TMA would not be as functional. Should follow up as an outpatient with Dr. Cullen or Dr. Jay. -Vancomycin and ceftriaxone. We will discuss with ID the best treatment approach going forward in the context of no identified bacteria, with progressive signs of osteomyelitis -wound culture of an area of purulent drainage in the center of the ulcer, Gram Stain is gram positive Cocci. Growth is described as ?mixed cesar?. Normocytic anemia -hemoglobin stable at 8.7 compared to 11/30. MCV 84.3. -likely alcohol-related despite absence of macrocytosis. -Iron low at 30 so received iron infusion X 2 -B12 level 717 Polyneuropathy involving stocking distribution -likely alcohol related -continues on pregabalin Hypomagnesemia -magnesium 1.5 on admission -related to malnourishment of chronic alcoholism -Started on Mag oxide 400 mg b.i.d. Portal hypertension/hepatosplenomegaly -likely end-stage alcoholic liver disease -slowed mentation and processing suggestive of hepatic encephalopathy, check ammonia level -Ammonia 62, started on Lactulose 20 gm daily. Disposition: This depends on whether he has surgery and how long the duration of antibiotics he needs. -will need to discuss treatment options with ID as will need prolonged IV antibiotics -Podiatry follow up as an outpatient. DVT prevention-continue Lovenox Time-Based Coding :: [TOTAL MINUTES] spent with patient and on the chart (including review of chart, obtaining history, exam, reviewing outside data, placing orders, documenting exam and treatment plan, and counseling patient) on [DATE]. Quality VTE Deep Vein Thrombosis/Pulmonary Embolism Present on Admission: No
[2024-12-22 08:00] VITALS: BP 146/89; PULSE 95; RESP 17; TEMP 37.1; O2SAT 98
[2024-12-22] MEDS: POTASSIUM CHLORIDE 10 MEQ TAB PO (08:51)
[2024-12-22] MEDS: LACTULOSE 20 GM/30 ML SOLUTION PO (08:51)
[2024-12-22] MEDS: MAGNESIUM OXIDE 400 MG TABLET PO ×2 (08:51→20:09)
[2024-12-22] MEDS: NICOTINE 21 MG PATCH TOP (08:51)
[2024-12-22] MEDS: FUROSEMIDE 40 MG TABLET PO (08:51)
[2024-12-22] MEDS: THIAMINE 100 MG TABLET PO (08:51)
[2024-12-22] MEDS: ENOXAPARIN 40 MG/0.4 ML SYRINGE SUBCUT (08:52)
[2024-12-22] MEDS: OXYCODONE IR 5 MG TABLET PO ×2 (08:52→19:49)
[2024-12-22] MEDS: cefTRIAXone 2,000 MG in SODIUM CHLORIDE 0.9% 100 ML 200 MG IV (11:28)
[2024-12-22 12:00] VITALS: BP 132/77; PULSE 101; RESP 18; TEMP 37.1; O2SAT 99
[2024-12-22] MEDS: VANCOMYCIN 1,250 MG/250 ML PIGGYBACK 200 MG IV (13:59)
[2024-12-22] MEDS: SODIUM FERRIC GLUCONAT/SUCROSE 125 MG in SODIUM CHLORIDE 0.9% 100 ML 110 MG IV (15:30)
[2024-12-22 16:00] VITALS: BP 137/77; PULSE 102; RESP 18; TEMP 37.2; O2SAT 99
[2024-12-22 20:00] VITALS: BP 137/85; PULSE 101; RESP 18; TEMP 37.4; O2SAT 100
[2024-12-22] MEDS: SODIUM CHLORIDE 0.9% FLUSH 10 ML IV (20:09)
--- NOTE | 2024-12-22 22:56 | PC.NURSE ---
Patient is alert and oriented. Tremory but coherent speech. Noted to have bleeding gums when he brushed his teeth. Had CIWA score of 1 following administration of Ativan for anxiety caused by noise made by floor specialist being used by housekeeping. Breath sounds CTA with RA sat of 100%. HRR but tachy in low 100's. Denied nausea. BT present and abdomen is soft. Reports urgency with urination related to use of Lasix but as of this charting time he has only been up to bathroom x1 (receives Lasix in a.m). Is able to turn himself in bed. Gets up to bathroom with walker and SBA and noted to be weak and LE are tremorous. Dressing to right foot is CDI so not visualized at time of assessment. Has non-pitting edema in right LE but good pedal pulses. Abrasions noted to left lateral leg and right forearm. Has red, rash like area on inner left lower leg. Noted to have pink, blanchable area to gluteral crease so encouraged to lie on sides and alternated. Has bilateral LE neuropathy which he states is unchanged. Refusing SCD's so reminded to ankle wave. Did complain of right foot pain at shift change and was medicated with oxycodone with reduction in pain sensation. Fall risk score is high and bed alarm is on. Has seizure pads on bed per CIWA protocol.
[2024-12-23] VITALS: BP 113/71; PULSE 97; RESP 18; TEMP 37.3; O2SAT 97
[2024-12-23] MEDS: VANCOMYCIN 1,250 MG/250 ML PIGGYBACK 200 MG IV ×2 (02:17→14:03)
[2024-12-23] MEDS: SODIUM CHLORIDE 0.9% FLUSH 10 ML IV ×4 (02:18→21:07)
[2024-12-23 04:00] VITALS: BP 126/69; PULSE 94; RESP 18; TEMP 37.2; O2SAT 98
[2024-12-23 06:28] LABS: Add Manual Diff / Slide Review NO; Basophils Absolute Auto 0 /uL (0-100); Basophils Percent Auto 0.8 % (0-2); Eosinophils Absolute Auto 200 /uL (0-450); Eosinophils Percent Auto 3.9 % (2-4); Hematocrit 25.7 % (41-53); Hemoglobin 8.7 g/dL (13.5-17.5); Lymphocytes Absolute Auto 1200 /uL (1100-4500); Lymphocytes Percent Auto 23.7 % (25-40); Mean Corpuscular HGB Conc 33.9 % (30-36); Mean Corpuscular Hemoglobin 28.3 PG (26-34); Mean Corpuscular Volume 83.5 fL (80-100); Monocytes Absolute Auto 600 /uL (0-900); Monocytes Percent Auto 11.7 % (3-14); Neutrophils Absolute Auto 3100 /uL (1500-7000); Neutrophils Percent Auto 59.9 % (50-75); Platelet Count 95 X10^3/uL (150-400); Red Blood Cell Count 3.08 X10^6/uL (4.5-5.9); Red Cell Distribution Width 19.4 % (11.6-14.8); White Blood Cell Count 5.2 X10^3/uL (4.5-11.0)
--- NOTE | 2024-12-23 07:32 | PM.PN.1 ---
Subjective Subjective Interval history: Patient with foot osteomyelitis and alcohol use. He declines BKA. S: He denies any foot pain. He also denies any nausea, chest pain, or shortness a breath. Exam Vital Signs (past 8 hours): - 12/23/24 00:00 12/23/24 04:00 Temperature 99.2 F 99 F Pulse Rate 97 H 94 H Respiratory Rate 18 18 Blood Pressure 113/71 126/69 Pulse Oximetry 97 98 Oxygen Flow Rate 0 0 Fraction of Inspired Oxygen 24 SaO2/FiO2 Ratio 383 Oxygen Delivery Method Room Air Oxygen Flow Rate 0 Narrative Exam Narrative: NAD, alert and oriented. Fluent speech. Lungs are clear, normal rate and effort. Heart is regular, no murmur gallop or rub. Abdomen is soft, non distended. Extremities are free of edema. Right foot is wrapped. Objective Labs 12/23/24 06:20 12/22/24 04:30 Labs: Laboratory Results - last 24 hr 12/23/24 06:20 WBC 5.2 RBC 3.08 L Hgb 8.7 L Hct 25.7 L MCV 83.5 MCH 28.3 MCHC 33.9 RDW 19.4 H Plt Count 95 L Neut % (Auto) 59.9 Lymph % (Auto) 23.7 L [place] % (Auto) 11.7 Eos % (Auto) 3.9 Baso % (Auto) 0.8 Neut # (Auto) 3100 Lymph # (Auto) 1200 [place] # (Auto) 600 Eos # (Auto) 200 Baso # (Auto) 0 PFSH Medical History Hepatosplenomegaly Portal hypertension Hepatosplenomegaly Foot osteomyelitis, right Neuropathic foot ulcer Decreased libido Erectile dysfunction Alcohol abuse (~2017) Low back pain (Unknown) Polyneuropathy (Unknown) Acne (Unknown) Hypertension (2004) Essential hypertension (09/12/16) Surgical History H/O surgical amputation of finger Hx of cholecystectomy (2001) Family History Grandmother Mental health problem Grandfather Cancer Grandmother Cancer Mother History of back problems Father Amputation leg, bilat Social History household members: spouse and family Smoking Status: Never smoker Tobacco: How many years used: 1 Smokeless tobacco user: chewing tobacco (many, many years) alcohol intake: current substance use type: does not use Assessment & Plan Assessment & Plan narrative: 1. Alcohol withdrawal, present on admission and improving. -patient presents with an alcohol level of 258, stating that he does not want to continue drinking -he was here for 5 days in October and experienced mild alcohol withdrawal symptoms. -on 12/22 he is noted to be no longer intoxicated and does not appear to be experiencing any withdrawal symptoms. -Magnesium oxide and thiamine daily -consider for admission/referral to inpatient alcohol chemical dependency treatment. 2. Worsening osteomyelitis and neuropathic plantar ulcer of right 5th MTP joint, present on admission and active. -ESR 65 with CRP 2.1 on admission -MRI shows progression of the infection despite the 2 weeks of ceftriaxone (once the patient was no longer intoxicated he admitted that he had not taken any of the ceftriaxone). -admitted to reset the treatment program and consider options at this point 3. Polyneuropathy involving stocking distribution, present on admission and active. -continues on pregabalin 4. Hypomagnesemia, present on admission and improving. -magnesium 1.5 on admission -related to malnourishment of chronic alcoholism -Started on Mag oxide 400 mg b.i.d. 5. Portal hypertension/hepatosplenomegaly, present on admission and improving. -likely end-stage alcoholic liver disease -slowed mentation and processing suggestive of hepatic encephalopathy, check ammonia level -Ammonia 62, started on Lactulose 20 gm daily. PLAN: -we will need several weeks of IV antibiotics, likely least 6 additional weeks. -we will discuss with Infectious Disease, and see what they recommend. There is currently Gram-positive cocci as well as ESBL organisms in culture growth. -he does have a left arm PICC in place. Disposition: He will not be stable for discharge until cultures are finalized and antibiotic plan is in place which will likely be on December 24 or . DVT prevention-continue Lovenox Time-Based Coding :: [TOTAL MINUTES] spent with patient and on the chart (including review of chart, obtaining history, exam, reviewing outside data, placing orders, documenting exam and treatment plan, and counseling patient) on [DATE]. Quality VTE Deep Vein Thrombosis/Pulmonary Embolism Present on Admission: No
[2024-12-23 08:00] VITALS: BP 128/74; PULSE 96; RESP 18; TEMP 37.4; O2SAT 100
[2024-12-23] MEDS: LACTULOSE 20 GM/30 ML SOLUTION PO (08:08)
[2024-12-23] MEDS: FUROSEMIDE 40 MG TABLET PO (08:09)
[2024-12-23] MEDS: MAGNESIUM OXIDE 400 MG TABLET PO ×2 (08:09→21:06)
[2024-12-23] MEDS: OXYCODONE IR 5 MG TABLET PO ×2 (08:09→11:46)
[2024-12-23] MEDS: POTASSIUM CHLORIDE 10 MEQ TAB PO (08:09)
[2024-12-23] MEDS: NICOTINE 21 MG PATCH TOP (08:09)
[2024-12-23] MEDS: THIAMINE 100 MG TABLET PO (08:09)
[2024-12-23] MEDS: ENOXAPARIN 40 MG/0.4 ML SYRINGE SUBCUT (08:12)
[2024-12-23] MEDS: ERTAPENEM 1 GM in SODIUM CHLORIDE 0.9% 100 ML IV (10:16)
[2024-12-23] MEDS: SPIRONOLACTONE 25 MG TABLET PO (11:46)
[2024-12-23 12:00] VITALS: BP 127/63; PULSE 95; RESP 19; TEMP 37.3; O2SAT 100
--- NOTE | 2024-12-23 12:51 | CM.DPC ---
DCP Cont. Reviewed EMR and team rounds for status updates. Cultures are in, Dr. George will be discuss an OP plan for pt to get his IV ABO infusions for 6-weeks at our Infusion Center, which patient completely agrees with. Monitoring for final plan in order to send referral to the Infusion Center.
[2024-12-23] MEDS: PREGABALIN 75 MG CAPSULE PO ×2 (14:04→21:07)
[2024-12-23 16:00] VITALS: BP 137/76; PULSE 93; RESP 18; TEMP 36.9; O2SAT 98
[2024-12-23] MEDS: LORazepam 1 MG TABLET PO (18:11)
[2024-12-23 20:00] VITALS: BP 129/77; PULSE 95; RESP 16; TEMP 37.1; O2SAT 100
[2024-12-23] MEDS: CALCIUM CARBONATE 500 MG TAB PO (21:08)
[2024-12-24] VITALS: BP 130/80; PULSE 86; RESP 19; TEMP 36.6; O2SAT 100
[2024-12-24] MEDS: VANCOMYCIN TROUGH 1 REQUEST MISC (01:30)
[2024-12-24] MEDS: VANCOMYCIN 1,250 MG/250 ML PIGGYBACK 200 MG IV ×2 (02:10→14:16)
[2024-12-24 02:41] LABS: Vancomycin Trough 12.6 ug/mL (10-20)
[2024-12-24 04:00] VITALS: BP 134/76; PULSE 80; RESP 18; TEMP 37; O2SAT 99
[2024-12-24 05:44] LABS: Vancomycin Peak 30.6 ug/mL (20-40)
--- NOTE | 2024-12-24 07:32 | PM.PN.1 ---
Subjective Subjective Interval history: Summary: Patient was alcohol use disorder presents with a foot osteomyelitis related to a nonhealing foot ulcer. Cultures are pending, there is indication Gram-positive cocci and possible ESBL in early growth. S: His foot feels better. He feels better with regards to his alcohol withdrawal. He has some pain in the foot, but not bad. Exam Vital Signs (past 8 hours): - 12/24/24 00:00 12/24/24 04:00 Temperature 97.8 F 98.6 F Pulse Rate 86 80 Respiratory Rate 19 18 Blood Pressure 130/80 134/76 Pulse Oximetry 100 99 Oxygen Flow Rate 0 0 Fraction of Inspired Oxygen 24 SaO2/FiO2 Ratio 383 Oxygen Delivery Method Room Air Oxygen Flow Rate 0 Narrative Exam Narrative: NAD, alert and oriented. Fluent speech. Lungs are clear, normal rate and effort. Heart is regular, no murmur gallop or rub. Abdomen is soft, non distended. Extremities are free of edema. The right foot is slightly swollen, but not warm. Both feet are dusky and somewhat purple. He does have a chronic large ulceration on the pad of his bottom of his foot below the great toe. There is no purulent discharge coming from this area. He has not really followed up at wound clinic in between his hospital visits. Objective Imaging Foot MRI:: Radiologist's impression: 1. Ulceration over plantar aspect of 5th MTP joint with extensive cellulitis throughout midfoot and forefoot. No discrete drainable abscess collection. Suggestion of myositis throughout visualized plantar foot muscles without intramuscular fluid collection or mass. 2. Mild midfoot and forefoot joint osteoarthritis most notably involving 5th MTP joint. There are deformities and subtle erosive changes with marrow edema involving 5th proximal phalangeal base and adjacent 5th metatarsal head with mild contrast enhancement concerning for osteomyelitis of indeterminate age. Small amount of fluid within 5th MTP joint is seen with thickened synovial lining and mild enhancement, septic arthritis cannot be excluded. Labs 12/23/24 06:20 12/22/24 04:30 Labs: Laboratory Results - last 24 hr 12/24/24 12/24/24 01:27 04:33 Vancomycin Peak 30.6 Vancomycin Trough 12.6 PFSH Medical History Hepatosplenomegaly Portal hypertension Hepatosplenomegaly Foot osteomyelitis, right Neuropathic foot ulcer Decreased libido Erectile dysfunction Alcohol abuse (~2017) Low back pain (Unknown) Polyneuropathy (Unknown) Acne (Unknown) Hypertension (2005) Essential hypertension (09/12/16) Surgical History H/O surgical amputation of finger Hx of cholecystectomy (2001) Family History Grandmother Mental health problem Grandfather Cancer Grandmother Cancer Mother History of back problems Father Amputation leg, bilat Social History household members: spouse and family Smoking Status: Never smoker Tobacco: How many years used: 1 Smokeless tobacco user: chewing tobacco (many, many years) alcohol intake: current substance use type: does not use Assessment & Plan Assessment & Plan narrative: 1. Alcohol withdrawal, present on admission and improving. -patient presents with an alcohol level of 258, stating that he does not want to continue drinking -he was here for 5 days in October and experienced mild alcohol withdrawal symptoms. 2. Foot osteomyelitis and neuropathic plantar ulcer of right 5th MTP joint, present on admission and active. -ESR 65 with CRP 2.1 on admission -MRI shows progression of the infection despite the 2 weeks of ceftriaxone. 3. Polyneuropathy involving stocking distribution, present on admission and active. -continues on pregabalin. 4. Hypomagnesemia, present on admission and improving. -magnesium 1.5 on admission 5. Portal hypertension/hepatosplenomegaly, present on admission and improving. -likely end-stage alcoholic liver disease -slowed mentation and processing suggestive of hepatic encephalopathy, check ammonia level -Ammonia 62, started on Lactulose 20 gm daily. 6. Severe alcohol use disorder, present on admission and active. PLAN: -we will need several weeks of IV antibiotics, likely least 6 additional weeks. -we will discuss with Infectious Disease, and see what they recommend. There is currently Gram-positive cocci as well as ESBL organisms in culture growth. -he does have a left arm PICC in place. Disposition: He will not be stable for discharge until cultures are finalized and antibiotic plan is in place which will likely be on December 24 or . Time-Based Coding :: [TOTAL MINUTES] spent with patient and on the chart (including review of chart, obtaining history, exam, reviewing outside data, placing orders, documenting exam and treatment plan, and counseling patient) on [DATE]. Quality VTE Deep Vein Thrombosis/Pulmonary Embolism Present on Admission: No
[2024-12-24 08:00] VITALS: BP 128/90; PULSE 89; RESP 16; TEMP 36.4; O2SAT 99
--- NOTE | 2024-12-24 08:37 | DIET.PN1 ---
Dietary Progress Note Assessment: RD f/u Pt with good PO intakes tolerating >75%. DFM reviewed for meal composition. Will continue to monitor PO intakes and meal composition to ensure pt meeting EER. Ht: 177.8 cm Wt: 104.7 kg BMI: 33.1 Last BM: 12/23/24 (12/23/24 10:08) MNA: 10 Luis Score: 20 Diet: 12/20/24 Dinner General (Regular) Diet Diet Modifications: Nutrition Percent Meal Consumed 100% 12/23/24 13:59 Percent Meal Consumed 50% 12/23/24 10:08 Percent Meal Consumed 100% 12/22/24 18:00 Labs: RBC 3.08 X10^6/uL (4.5-5.9) L 12/23/24 06:20 Hgb 8.7 g/dL (13.5-17.5) L 12/23/24 06:20 Hct 25.7 % (41-53) L 12/23/24 06:20 Creatinine 0.77 mg/dL (0.66-1.25) 12/22/24 04:30 Lactate 1.4 mmol/L (0.7-2.1) 12/20/24 04:54 Iron 30 ug/dL (49-181) L 12/21/24 06:10 % Saturation 10 % (20-50) L 12/21/24 06:10 Electronically Signed by: Pretty Robledo 12/24/24 08:37 Clinical Dietitian [address] [address]
[2024-12-24] MEDS: SPIRONOLACTONE 25 MG TABLET PO (09:04)
[2024-12-24] MEDS: PREGABALIN 75 MG CAPSULE PO ×3 (09:04→20:30)
[2024-12-24] MEDS: FUROSEMIDE 40 MG TABLET PO (09:04)
[2024-12-24] MEDS: MAGNESIUM OXIDE 400 MG TABLET PO ×2 (09:04→20:30)
[2024-12-24] MEDS: OXYCODONE IR 5 MG TABLET PO ×3 (09:04→20:37)
[2024-12-24] MEDS: POTASSIUM CHLORIDE 10 MEQ TAB PO (09:04)
[2024-12-24] MEDS: NICOTINE 21 MG PATCH TOP (09:05)
[2024-12-24] MEDS: THIAMINE 100 MG TABLET PO (09:05)
[2024-12-24] MEDS: LACTULOSE 20 GM/30 ML SOLUTION PO (09:05)
[2024-12-24] MEDS: ENOXAPARIN 40 MG/0.4 ML SYRINGE SUBCUT (09:06)
[2024-12-24] MEDS: SODIUM CHLORIDE 0.9% FLUSH 10 ML IV ×2 (09:06→20:30)
[2024-12-24] MEDS: ERTAPENEM 1 GM in SODIUM CHLORIDE 0.9% 100 ML IV (10:32)
[2024-12-24 12:00] VITALS: BP 130/78; PULSE 91; RESP 19; TEMP 36.7; O2SAT 97
[2024-12-24 16:00] VITALS: BP 138/80; PULSE 100; RESP 24; TEMP 36.6; O2SAT 100
[2024-12-24] MEDS: LORazepam 1 MG TABLET PO (16:21)
[2024-12-24 20:00] VITALS: BP 130/77; PULSE 84; RESP 19; TEMP 36.6; O2SAT 96
--- NOTE | 2024-12-24 20:53 | PM.CN ---
History of Present Illness Consult details Date Patient Seen: 12/24/24 Time Patient Seen: 20:53 Chief complaint: ETOH Reason for consult: Foot ulcer Narrative: 49-year-old gentleman with a longstanding history of a ulcer to the plantar aspect of his right foot. Patient suffers from chronic alcohol abuse and is not the best historian. Can not really state when he 1st noticed the ulcer. Was in the hospital in the end of October of 2024. Was sent home with a plan of IV antibiotics through a PICC line. Patient stated to me that he never did any of the antibiotics. The PICC line came out within a day or 2 of getting home. This has now resulted in a return of cellulitis to his foot. But once again unable to really tell me when he started to have issues. States that everything just kind of runs together. 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 Also has significant neuropathy to both feet. Meds Home Medications and Allergies Home Medications Medication Instructions Recorded Confirmed Type pregabalin 75 mg capsule 75 mg PO TID 09/26/22 12/20/24 History furosemide 40 mg tablet (Lasix) 40 mg PO DAILY #30 tabs 11/18/24 12/20/24 Rx spironolactone 25 mg tablet 25 mg PO DAILY #30 tabs 11/18/24 12/20/24 Rx Allergies Allergy/AdvReac Type Severity Reaction Status Date / Time No Known Drug Allergies Allergy Verified 11/30/24 18:14 Exam Vital Signs (past 8 hours): - 12/24/24 16:00 Temperature 97.8 F Pulse Rate 100 H Respiratory Rate 24 Blood Pressure 138/80 Pulse Oximetry 100 Oxygen Flow Rate 0 Fraction of Inspired Oxygen 24 SaO2/FiO2 Ratio 383 Oxygen Delivery Method Room Air Oxygen Flow Rate 0 Narrative Exam Narrative: On exam, patient has an ulcer to the plantar aspect of the right foot over the 1st MTP joint. Very chronic in nature. Has little to no sensation during examination. Difficult to palpate a pedal pulse as well. No sign of any ulcers to the rest of the plantar aspect or the dorsal aspect of the foot. Objective Labs 12/23/24 06:20 12/22/24 04:30 Labs: Laboratory Results - last 24 hr 12/24/24 12/24/24 01:27 04:33 Vancomycin Peak 30.6 Vancomycin Trough 12.6 PFSH Medical History Hepatosplenomegaly Portal hypertension Hepatosplenomegaly Foot osteomyelitis, right Neuropathic foot ulcer Decreased libido Erectile dysfunction Alcohol abuse (~2017) Low back pain (Unknown) Polyneuropathy (Unknown) Acne (Unknown) Hypertension (2005) Essential hypertension (09/12/16) Surgical History H/O surgical amputation of finger Hx of cholecystectomy (2001) Family History Grandmother Mental health problem Grandfather Cancer Grandmother Cancer Mother History of back problems Father Amputation leg, bilat Social History household members: spouse and family Tobacco & Substance Use Smoking Status: Never smoker Tobacco: How many years used: 1 Smokeless tobacco user: chewing tobacco (many, many years) alcohol intake: current substance use type: does not use Assessment & Plan Assessment & Plan narrative: Patient with a longstanding ulcer to the plantar aspect of his right foot. Patient is made it very clear that he is really not interested in any type of surgical treatment particularly no amputation which would most likely what he would truly require. Based on vascular issues patient would need vascular studies so we can determine what type of perfusion he has to the feet before proceeding with any type of amputation. Based on patient's significant history of noncompliance postoperative treatment with wound care would be difficult if we were to rely on him to be responsible for that. At this point I would recommend IV antibiotics to clear any acute infection. Then once we have a better idea of perfusion to the feet we can truly decide if an amputation is possible. And as well patient will need to consent to an amputation which has right now he has vehemently refused. Time-Based Coding :: [TOTAL MINUTES] spent with patient and on the chart (including review of chart, obtaining history, exam, reviewing outside data, placing orders, documenting exam and treatment plan, and counseling patient) on [DATE].
[2024-12-25] VITALS (7 sets, daily range): BP systolic 120–140; BP diastolic 76–94; PULSE 76–99; RESP 12–19; TEMP 36.6–37.3; O2SAT 97–100
[2024-12-25] MEDS: CALCIUM CARBONATE 500 MG TAB PO (01:08)
[2024-12-25] MEDS: VANCOMYCIN 1,250 MG/250 ML PIGGYBACK 200 MG IV (01:49)
[2024-12-25] MEDS: PREGABALIN 75 MG CAPSULE PO ×3 (08:43→20:15)
[2024-12-25] MEDS: POTASSIUM CHLORIDE 10 MEQ TAB PO (08:43)
[2024-12-25] MEDS: THIAMINE 100 MG TABLET PO (08:43)
[2024-12-25] MEDS: LACTULOSE 20 GM/30 ML SOLUTION PO (08:43)
[2024-12-25] MEDS: FUROSEMIDE 40 MG TABLET PO (08:43)
[2024-12-25] MEDS: MAGNESIUM OXIDE 400 MG TABLET PO ×2 (08:44→20:16)
[2024-12-25] MEDS: SPIRONOLACTONE 25 MG TABLET PO (08:44)
[2024-12-25] MEDS: NICOTINE 21 MG PATCH TOP (08:44)
[2024-12-25] MEDS: ENOXAPARIN 40 MG/0.4 ML SYRINGE SUBCUT (08:44)
[2024-12-25] MEDS: SODIUM CHLORIDE 0.9% FLUSH 10 ML IV ×2 (08:45→20:16)
[2024-12-25] MEDS: ERTAPENEM 1 GM in SODIUM CHLORIDE 0.9% 100 ML IV (09:43)
--- NOTE | 2024-12-25 11:57 | CM.DPC ---
Addendum entered by REE Carvalho 12/25/24 15:56: ADD: Per [facility] admissions, will try to determine [facility] coverage for IV-Abx as they tend to be poor at reimbursement for services and uncertain if they would be able to accept but will try to get information about insurance coverage. BF Addendum entered by REE Carvalho 12/25/24 12:20: ADD: Per MD, discussed discharge plan and needs bedside with pt and pt now agreeable to SNF for higher chance of improvement with his osteomyelitis to reduce risk of amputation. SW made initial referrals to [facility] and [facility] due to pt's [facility] HO for insurance and [facility] and [facility] not contracted at this time. BF Original Note: DCP Cont: Per MD, will need to consult with ID MD to determine which IV-Abx needed at d/c and their frequency and duration. SW met bedside with pt and explained role and talked at length regarding discharge plan. Pt continues to confirm his preference for IV-Abx if only once a day is the outpt infusion Clinic at [facility]. Pt states he feels he can be successful if his infusion is scheduled for the same time every day. SW discussed the possible options if pt's dosing is more than once a day: Home Infusion (discussed likelihood that [facility] might decline since pt was unable to manage home infusion at last discharge) vs SNF. Pt states he will not go to [facility] but SW discussed options of [facility], [facility], or [facility] and if absolutely necessary than pt would consider these options. Plan: SW to follow closely for ID MD recommendations for IV-Abx dosing and frequency to determine outpt infusion clinic vs SNF. REE Carvalho
--- NOTE | 2024-12-25 13:08 | PM.PN.1 ---
Subjective Subjective Interval history: 49-year-old gentleman with a longstanding history of a ulcer to the plantar aspect of his right foot. Patient suffers from chronic alcohol abuse and is not the best historian. Can not really state when he 1st noticed the ulcer. Was in the hospital at the end of October of 2024. Was sent home with a plan of IV antibiotics through a PICC line. Patient stated to me that he never did any of the antibiotics. The PICC line came out within a day or 2 of getting home. This has now resulted in a return of cellulitis to his foot. But once again unable to really tell me when he started to have issues. States that everything just kind of runs together. 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 Also has significant neuropathy to both feet. Today: He states he has no severe pain, reports he cannot feel much of his foot d/t his neuropathy. He states he does not feel different than yesterday. He is tearful at the thought of amputation. Exam Vital Signs (past 8 hours): - 12/25/24 08:00 12/25/24 12:00 Temperature 98.6 F 99.1 F Pulse Rate 98 H 99 H Respiratory Rate 14 14 Blood Pressure 120/82 135/85 Pulse Oximetry 98 97 Oxygen Flow Rate 0 0 Fraction of Inspired Oxygen 24 SaO2/FiO2 Ratio 383 Oxygen Delivery Method Room Air Oxygen Flow Rate 0 Narrative Exam Narrative: On exam, patient has an ulcer to the plantar aspect of the right foot over the 1st MTP joint. Skin has completely eroded, muscle is visible below, slight purulence noted at the base of the ulcer. Very chronic in nature. Has little to no sensation during examination. Difficult to palpate a pedal pulse as well. No sign of any ulcers to the rest of the plantar aspect or the dorsal aspect of the foot. He is able to wiggle his toes. Objective Labs 12/23/24 06:20 12/22/24 04:30 [facility] Medical History Hepatosplenomegaly Portal hypertension Hepatosplenomegaly Foot osteomyelitis, right Neuropathic foot ulcer Decreased libido Erectile dysfunction Alcohol abuse (~2016) Low back pain (Unknown) Polyneuropathy (Unknown) Acne (Unknown) Hypertension (2004) Essential hypertension (09/12/16) Surgical History H/O surgical amputation of finger Hx of cholecystectomy (2001) Family History Grandmother Mental health problem Grandfather Cancer Grandmother Cancer Mother History of back problems Father Amputation leg, bilat Social History household members: spouse and family Smoking Status: Never smoker Tobacco: How many years used: 1 Smokeless tobacco user: chewing tobacco (many, many years) alcohol intake: current substance use type: does not use Assessment & Plan Assessment & Plan narrative: Patient with a longstanding ulcer to the plantar aspect of his right foot. Patient has made it clear that he is really not interested in any type of amputation, he does express openness to possible surgical debridement or other intervention that does not include amputation. He then later states that he is open to possible 1-2 toe amputation if needed. Based on vascular issues patient would need vascular studies so we can determine what type of perfusion he has to the feet before proceeding with any type of amputation. Based on patient's significant history of noncompliance postoperative treatment with wound care would be difficult if we were to rely on him to be responsible for that. At this point I would recommend IV antibiotics to clear any acute infection. Then once we have a better idea of perfusion to the feet we can truly decide if an amputation is possible. Currently getting Ertapenem IV and enoxaparin for DVT prophylaxis. NWB to the R foot ulcer to allow for healing. Daily dressing changes, keep the wound covered. Quality VTE Deep Vein Thrombosis/Pulmonary Embolism Present on Admission: No
[2024-12-25] MEDS: LORazepam 1 MG TABLET PO (13:37)
--- NOTE | 2024-12-25 17:30 | PM.PN.1 ---
Subjective Subjective Interval history: 49 yo male admitted w/alcohol dependence with withdrawal and osteomyelitis in the setting of right foot neuropathic ulcer with known preexisting osteomyelitis, hepatosplenomegaly, portal hypertension, peripheral neuropathy and hypertension. Was sent home w/IV ceftriaxone last admit, but he never gave himself the abx.? He is unwilling to do SNF.? He is unwilling to proceed w/BKA.? He is receptive to come to the infusion center. Exam Vital Signs (past 8 hours): - 12/25/24 12:00 Temperature 99.1 F Pulse Rate 99 H Respiratory Rate 14 Blood Pressure 135/85 Pulse Oximetry 97 Oxygen Flow Rate 0 Fraction of Inspired Oxygen 24 SaO2/FiO2 Ratio 383 Oxygen Delivery Method Room Air Oxygen Flow Rate 0 Narrative Exam Narrative: GEN: Alert and oriented x 3, NAD HEENT:NC, Face symmetric, mild bilateral scleral icterus CHEST: Respiratory excursions symmetric, CTAB CV: RRR, no M/R/G ABD: Soft, NT/ND, obese, BT present in all 4 quadrants, no organomegaly or masses appreciated EXTR: warm, no C/C/E, right lateral wound reveals a clean wound bed, no drainage, callus noted circumferentially around the wound SKIN: warm and dry, no rash NEURO: Alert and oriented x 3, nonfocal Objective Labs 12/23/24 06:20 12/22/24 04:30 [facility] Medical History Hepatosplenomegaly Portal hypertension Hepatosplenomegaly Foot osteomyelitis, right Neuropathic foot ulcer Decreased libido Erectile dysfunction Alcohol abuse (~2017) Low back pain (Unknown) Polyneuropathy (Unknown) Acne (Unknown) Hypertension (2004) Essential hypertension (09/12/16) Surgical History H/O surgical amputation of finger Hx of cholecystectomy (2001) Family History Grandmother Mental health problem Grandfather Cancer Grandmother Cancer Mother History of back problems Father Amputation leg, bilat Social History household members: spouse and family Smoking Status: Never smoker Tobacco: How many years used: 1 Smokeless tobacco user: chewing tobacco (many, many years) alcohol intake: current substance use type: does not use Assessment & Plan Assessment & Plan narrative: 1. Right foot neuropathic ulcer with osteomyelitis ESBL E coli growing from cultures. I did print out the culture and sensitivities and reviewed them with the patient. Advised that at this time there really is only the carbapenems and Zosyn left that can be used. Zosyn while sensitive, has a high SO. I explained that at this point he really has only 1 opportunity to treat this effectively. Advised that if this is not successful, he would likely will end up requiring a BKA. He is made it clear that he would rather than undergo a BKA. Advised that unless he can not 100% guarantee he will come in every day to have antibiotics at the infusion center, he really ought to consider senior living to ensure he does not have treatment failure. After discussion, he agreed to senior living facility. He would prefer [facility]. Given his ESBL E coli, he would need a private room. If he can not get into [facility], a [facility] facility would be 2nd preference. 2. Alcohol dependence with withdrawal, now resolved Patient was treated for alcohol withdrawal earlier this hospital stay. This has now resolved. 3. Scleral icterus Patient did have hyperbilirubinemia which was mild earlier this hospital stay. Will repeat labs in the morning. 4. Hepatic encephalopathy He was initiated on lactulose this admission for an ammonia of 62. He has evidence of portal hypertension as well as hepatosplenomegaly. 5. Polyneuropathy Continue gabapentin Code status Full Prophylaxis On Lovenox Disposition Awaiting senior living facility placement Time-Based Coding :: [TOTAL MINUTES] spent with patient and on the chart (including review of chart, obtaining history, exam, reviewing outside data, placing orders, documenting exam and treatment plan, and counseling patient) on [DATE]. Quality VTE Deep Vein Thrombosis/Pulmonary Embolism Present on Admission: No
[2024-12-25] MEDS: OXYCODONE IR 5 MG TABLET PO (19:43)
[2024-12-26] VITALS (7 sets, daily range): BP systolic 116–138; BP diastolic 65–88; PULSE 0–98; RESP 0–18; TEMP 36.7–37.2; O2SAT 98–100
[2024-12-26] MEDS: NICOTINE 21 MG PATCH TOP ×2 (01:54→08:47)
[2024-12-26] MEDS: TRAMADOL 50 MG TABLET 100 MG PO (01:54)
[2024-12-26 06:23] LABS: Add Manual Diff / Slide Review NO; Basophils Absolute Auto 100 /uL (0-100); Eosinophils Absolute Auto 200 /uL (0-450); Eosinophils Percent Auto 4.6 % (2-4); Hematocrit 29.2 % (41-53); Hemoglobin 9.9 g/dL (13.5-17.5); Lymphocytes Absolute Auto 1500 /uL (1100-4500); Lymphocytes Percent Auto 27.2 % (25-40); Mean Corpuscular HGB Conc 34.1 % (30-36); Mean Corpuscular Hemoglobin 28.6 PG (26-34); Monocytes Absolute Auto 600 /uL (0-900); Monocytes Percent Auto 10.8 % (3-14); Neutrophils Absolute Auto 3000 /uL (1500-7000); Neutrophils Percent Auto 56.4 % (50-75); Platelet Count 105 X10^3/uL (150-400); Red Blood Cell Count 3.48 X10^6/uL (4.5-5.9); Red Cell Distribution Width 20.1 % (11.6-14.8); White Blood Cell Count 5.3 X10^3/uL (4.5-11.0)
[2024-12-26 06:40] LABS: Alanine Aminotransferase 31 IU/L (<50); Albumin 4.1 g/dL (3.5-5.0); Alkaline Phosphatase 114 U/L (38-126); Aspartate Aminotransferase 83 IU/L (17-59); Bilirubin Total 1.9 mg/dL (0.2-1.3); Blood Urea Nitrogen 12 mg/dL (9-20); Calcium 10.8 mg/dL (8.4-10.2); Carbon Dioxide 22 mmol/L (22-32); Chloride 102 mmol/L (98-107); Estimated Glomerular Filt Rate > 60 mL/min (>60); Glucose 114 mg/dL (70-100); HEMOLYSIS < 15 (0-50); Potassium 3.3 mmol/L (3.4-5.1); Sodium 134 mmol/L (137-145); Total Protein 8.1 g/dL (6.3-8.2)
[2024-12-26 06:46] LABS: Anisocytosis 1+; Microcytosis 1+; Platelet Estimate Decreased on smear
[2024-12-26] MEDS: LACTULOSE 20 GM/30 ML SOLUTION PO (08:45)
[2024-12-26] MEDS: ENOXAPARIN 40 MG/0.4 ML SYRINGE SUBCUT (08:45)
[2024-12-26] MEDS: SPIRONOLACTONE 25 MG TABLET PO (08:46)
[2024-12-26] MEDS: MAGNESIUM OXIDE 400 MG TABLET PO ×2 (08:46→20:41)
[2024-12-26] MEDS: THIAMINE 100 MG TABLET PO (08:46)
[2024-12-26] MEDS: FUROSEMIDE 40 MG TABLET PO (08:46)
[2024-12-26] MEDS: POTASSIUM CHLORIDE 10 MEQ TAB PO (08:46)
[2024-12-26] MEDS: OXYCODONE IR 5 MG TABLET PO ×2 (08:46→22:25)
[2024-12-26] MEDS: PREGABALIN 75 MG CAPSULE PO (08:46)
[2024-12-26] MEDS: SODIUM CHLORIDE 0.9% FLUSH 10 ML IV ×2 (10:55→20:40)
[2024-12-26] MEDS: ERTAPENEM 1 GM in SODIUM CHLORIDE 0.9% 100 ML IV (10:58)
[2024-12-26] MEDS: LORazepam 1 MG TABLET PO (11:02)
[2024-12-26] MEDS: POTASSIUM CHLORIDE 20 MEQ TAB 40 MEQ PO (11:13)
--- NOTE | 2024-12-26 14:51 | PM.PN.1 ---
Subjective Subjective Interval history: 49 yo male admitted w/alcohol dependence with withdrawal and osteomyelitis in the setting of right foot neuropathic ulcer with known preexisting osteomyelitis, hepatosplenomegaly, portal hypertension, peripheral neuropathy and hypertension. Was sent home w/IV ceftriaxone last admit, but he never gave himself the abx.? He is unwilling to do SNF.? He is unwilling to proceed w/BKA.? He is receptive to come to the infusion center. Patient reports he is feeling about the same today overall. He does complain of throbbing in his leg despite having neuropathy and lack of sensation to the wound itself. He has decided he needs to work alcohol cessation. He realizes both he and his need to live healthier lifestyle. He does report a bit more weeping today from the wound. Exam Vital Signs (past 8 hours): - 12/26/24 07:00 12/26/24 11:00 Temperature 98.3 F 98.3 F Pulse Rate 98 H 90 Respiratory Rate 12 12 Blood Pressure 133/80 138/81 Pulse Oximetry 98 99 Oxygen Flow Rate 0 0 Fraction of Inspired Oxygen 24 SaO2/FiO2 Ratio 383 Oxygen Delivery Method Room Air Oxygen Flow Rate 0 Narrative Exam Narrative: GEN: Alert and oriented x 3, NAD HEENT:NC, Face symmetric CHEST: Respiratory excursions symmetric, CTAB CV: RRR, no M/R/G ABD: Soft, NT/ND, obese, BT present in all 4 quadrants, no organomegaly or masses appreciated EXTR: warm, no C/C/E, foot wound was not visualized today as he was getting ready to get in the shower SKIN: warm and dry, no rash NEURO: Alert and oriented x 3, nonfocal Objective Labs 12/26/24 05:40 12/26/24 05:40 Labs: Laboratory Results - last 24 hr 12/26/24 05:40 WBC 5.3 RBC 3.48 L Hgb 9.9 L Hct 29.2 L MCV 84.0 MCH 28.6 MCHC 34.1 RDW 20.1 H Plt Count 105 L Neut % (Auto) 56.4 Lymph % (Auto) 27.2 [place] % (Auto) 10.8 Eos % (Auto) 4.6 H Baso % (Auto) 1.0 Neut # (Auto) 3000 Lymph # (Auto) 1500 [place] # (Auto) 600 Eos # (Auto) 200 Baso # (Auto) 100 Platelet Estimate Decreased on smear RBC Morphology See below Anisocytosis 1+ H Microcytosis 1+ H Sodium 134 L Potassium 3.3 L Chloride 102 Carbon Dioxide 22 BUN 12 Creatinine 0.75 Estimated GFR > 60 BUN/Creatinine Ratio 16.0 Glucose 114 H Calcium 10.8 H Total Bilirubin 1.9 H AST 83 H ALT 31 Alkaline Phosphatase 114 Total Protein 8.1 Albumin 4.1 Globulin 4.0 Albumin/Globulin Ratio 1.0 PFSH Medical History Hepatosplenomegaly Portal hypertension Hepatosplenomegaly Foot osteomyelitis, right Neuropathic foot ulcer Decreased libido Erectile dysfunction Alcohol abuse (~2016) Low back pain (Unknown) Polyneuropathy (Unknown) Acne (Unknown) Hypertension (2004) Essential hypertension (09/12/16) Surgical History H/O surgical amputation of finger Hx of cholecystectomy (2001) Family History Grandmother Mental health problem Grandfather Cancer Grandmother Cancer Mother History of back problems Father Amputation leg, bilat Social History household members: spouse and family Smoking Status: Never smoker Tobacco: How many years used: 1 Smokeless tobacco user: chewing tobacco (many, many years) alcohol intake: current substance use type: does not use Assessment & Plan Assessment & Plan narrative: 1. Right foot neuropathic ulcer with osteomyelitis ESBL E coli growing from cultures. After a conversation yesterday, he is amenable to going to a [place] [facility] facility. We are presently awaiting a private room as he has ESBL E coli and will need contact precautions. Also will require authorization from [employer]. Continue current antibiotics. 2. Alcohol dependence with withdrawal, now resolved Patient was treated for alcohol withdrawal earlier this hospital stay. This has now resolved. 3. Scleral icterus Improved today. Overall, his LFTs are normalizing. 4. Hepatic encephalopathy He was initiated on lactulose this admission for an ammonia of 62. He has evidence of portal hypertension as well as hepatosplenomegaly. We discussed abstinence from alcohol could still result in resolution of most of his liver abnormalities. 5. Polyneuropathy Continue pregabalin. Will increase the dose from 75 mg t.i.d. to 100 mg t.i.d. today. He is also receiving as needed oxycodone. Code status Full Prophylaxis On Lovenox Disposition Awaiting [place] [facility] facility placement Time-Based Coding :: [TOTAL MINUTES] spent with patient and on the chart (including review of chart, obtaining history, exam, reviewing outside data, placing orders, documenting exam and treatment plan, and counseling patient) on [DATE]. Quality VTE Deep Vein Thrombosis/Pulmonary Embolism Present on Admission: No
[2024-12-26] MEDS: PREGABALIN 25 MG CAPSULE 100 MG PO ×2 (14:55→20:40)
[2024-12-26] MEDS: hydrOXYzine HCL 25 MG TABLET PO (15:49)
--- NOTE | 2024-12-26 18:21 | PC.NURSE ---
pt has been alert and oriented x4, vss, po pain med able to keep him comfortable, right foot drsg reinforced from dragging foot, uses walker, call appropriately, ativan 1 mg po for the start of anxiety, showered and napped. cwia 1\0
[2024-12-27 03:00] VITALS: BP 115/73; PULSE 90; RESP 18; TEMP 37.1; O2SAT 98
--- NOTE | 2024-12-27 04:54 | PC.WOUNDPHOT ---
right ffot wound
--- NOTE | 2024-12-27 06:46 | PC.NURSE ---
wound care provided to right foot and new pictures taken.
[2024-12-27 07:00] VITALS: BP 112/78; PULSE 100; RESP 12; TEMP 37.1; O2SAT 100
--- NOTE | 2024-12-27 07:31 | PM.PN.1 ---
Subjective Subjective Interval history: Summary: 49 yo male admitted w/alcohol dependence with withdrawal and osteomyelitis in the setting of right foot neuropathic ulcer with known preexisting osteomyelitis, hepatosplenomegaly, portal hypertension, peripheral neuropathy and hypertension. Was sent home w/IV ceftriaxone last admit, but he never gave himself the abx.? He is unwilling to do SNF.? He is unwilling to proceed w/BKA.? He is receptive to come to the infusion center. S: Intermittent foot pain, but for the most part it is painless. He denies any chest pain, or dyspnea. Exam Vital Signs (past 8 hours): - 12/27/24 03:00 Temperature 98.8 F Pulse Rate 90 Respiratory Rate 18 Blood Pressure 115/73 Pulse Oximetry 98 Oxygen Flow Rate 0 Fraction of Inspired Oxygen 24 SaO2/FiO2 Ratio 383 Oxygen Delivery Method Room Air Oxygen Flow Rate 0 Narrative Exam Narrative: NAD, alert and oriented. Fluent speech. Lungs are clear, normal rate and effort. Heart is regular, no murmur gallop or rub. Abdomen is soft, non distended. Extremities are free of edema. Right foot is wrapped. Objective Labs 12/26/24 05:40 12/26/24 05:40 [facility] Medical History Hepatosplenomegaly Portal hypertension Hepatosplenomegaly Foot osteomyelitis, right Neuropathic foot ulcer Decreased libido Erectile dysfunction Alcohol abuse (~2017) Low back pain (Unknown) Polyneuropathy (Unknown) Acne (Unknown) Hypertension (2004) Essential hypertension (09/12/16) Surgical History H/O surgical amputation of finger Hx of cholecystectomy (2001) Family History Grandmother Mental health problem Grandfather Cancer Grandmother Cancer Mother History of back problems Father Amputation leg, bilat Social History household members: spouse and family Smoking Status: Never smoker Tobacco: How many years used: 1 Smokeless tobacco user: chewing tobacco (many, many years) alcohol intake: current substance use type: does not use Assessment & Plan Assessment & Plan narrative: 1. Right foot neuropathic ulcer with osteomyelitis, present on admission and active. He declines any surgical intervention. ESBL E coli growing from cultures. After a conversation yesterday, he is amenable to going to a senior care facility. We are presently awaiting a private room as he has ESBL E coli and will need contact precautions. Also will require authorization from [employer]. Continue current antibiotics. 2. Alcohol dependence with withdrawal, now resolved Patient was treated for alcohol withdrawal earlier this hospital stay. This has now resolved. 3. Scleral icterus, present on admission and improving. Improved today. Overall, his LFTs are normalizing. 4. Hepatic encephalopathy, present on admission and resolved. He was initiated on lactulose this admission for an ammonia of 62. He has evidence of portal hypertension as well as hepatosplenomegaly. We discussed abstinence from alcohol could still result in resolution of most of his liver abnormalities. 5. Polyneuropathy, present on admission and active. Continue pregabalin. Will increase the dose from 75 mg t.i.d. to 100 mg t.i.d. today. He is also receiving as needed oxycodone. Code status Full Prophylaxis On Lovenox Disposition Awaiting senior care facility placement, he was to last facilities who are reviewing with his ensure melena. If these declined he will be want to go home with his PICC line and come back to the infusion center daily for IV ertapenem 1 g Q 24 hours. Time-Based Coding :: [TOTAL MINUTES] spent with patient and on the chart (including review of chart, obtaining history, exam, reviewing outside data, placing orders, documenting exam and treatment plan, and counseling patient) on [DATE]. Quality VTE Deep Vein Thrombosis/Pulmonary Embolism Present on Admission: No
[2024-12-27] MEDS: SPIRONOLACTONE 25 MG TABLET PO (08:51)
[2024-12-27] MEDS: NICOTINE 21 MG PATCH TOP (08:52)
[2024-12-27] MEDS: LACTULOSE 20 GM/30 ML SOLUTION PO (08:52)
[2024-12-27] MEDS: POTASSIUM CHLORIDE 10 MEQ TAB PO (08:52)
[2024-12-27] MEDS: FUROSEMIDE 40 MG TABLET PO (08:52)
[2024-12-27] MEDS: MAGNESIUM OXIDE 400 MG TABLET PO ×2 (08:52→20:17)
[2024-12-27] MEDS: ENOXAPARIN 40 MG/0.4 ML SYRINGE SUBCUT (08:52)
[2024-12-27] MEDS: THIAMINE 100 MG TABLET PO (08:52)
[2024-12-27] MEDS: PREGABALIN 25 MG CAPSULE 100 MG PO ×2 (08:53→14:51)
[2024-12-27] MEDS: ERTAPENEM 1 GM in SODIUM CHLORIDE 0.9% 100 ML IV (09:14)
[2024-12-27] MEDS: SODIUM CHLORIDE 0.9% FLUSH 10 ML IV ×2 (09:19→20:17)
[2024-12-27 11:00] VITALS: BP 117/73; PULSE 104; RESP 16; TEMP 37.4; O2SAT 97
[2024-12-27] MEDS: OXYCODONE IR 5 MG TABLET PO (14:51)
[2024-12-27 15:00] VITALS: BP 126/76; PULSE 104; RESP 12; TEMP 37.3; O2SAT 98
[2024-12-27] MEDS: LORazepam 1 MG TABLET PO (16:23)
--- NOTE | 2024-12-27 16:51 | CM.DPC ---
DCP COnt: Per MD, reaching out to ID MD today now that Ortho consult note available to determine length of Ertapenem 1g Q24 (2-6 weeks?). SW reached out to both [facility] and [facility] and both confirm they are still running pt's [employer] insurance and looks like it would cost $64 a dose and waiting for their their DNS and team to review before they can make a decision. SW attempted to call [facility] to make new referral and discuss if [employer] auth needed prior to d/c and the process to secure this in case SNF not an option at d/c. Plan: SW to follow closely Tues AM for recommendation from ID of IV-Abx needed at d/c to confirm SNF vs outpt infusion. REE Carvalho
[2024-12-27] MEDS: hydrOXYzine HCL 25 MG TABLET PO (17:18)
[2024-12-27 20:10] VITALS: BP 121/70; PULSE 91; RESP 19; TEMP 37; O2SAT 98
[2024-12-27] MEDS: PREGABALIN 50 MG CAPSULE 100 MG PO (21:55)
--- NOTE | 2024-12-27 23:36 | PC.NURSE ---
Patient is alert and oriented except did not know the day of the month. Breath sounds CTA with RA sat of 98%. HRR but tachy in low 100's. Denied nausea. BT present and reports he has been having loose stools related to use of Lactulose. Denies dysuria, frequency or urgency with urination except when taking Lasix. Is able to turn himself in bed. Up to bathroom with walker and SBA as is unsteady on feet. Has chronic neuropathy in bilateral feet/legs. Dressing to right foot wound is intact with quarter size dried sero-sanguinous drainage noted. Allevyn dressing to left mckeon is CDI. Refuses SCD's despite education re: risk of DVT. Does complain of pain in right foot but states it is manageable; instructed to call when needing pain meds and he verbalized understanding. On contact precautions as has ESBL in foot wound. Fall risk score is high and bed alarm is activated.
[2024-12-27 23:44] VITALS: BP 126/80; PULSE 89; RESP 19; TEMP 37.2; O2SAT 99
[2024-12-28 03:00] VITALS: BP 126/84; PULSE 74; RESP 19; TEMP 36.6; O2SAT 99
[2024-12-28] MEDS: SODIUM CHLORIDE 0.9% FLUSH 10 ML IV ×2 (05:53→20:24)
[2024-12-28 06:24] LABS: Hematocrit 28.3 % (41-53); Hemoglobin 9.6 g/dL (13.5-17.5); Mean Corpuscular Hemoglobin 28.6 PG (26-34); Platelet Count 100 X10^3/uL (150-400); Red Blood Cell Count 3.37 X10^6/uL (4.5-5.9); Red Cell Distribution Width 19.6 % (11.6-14.8); White Blood Cell Count 4.7 X10^3/uL (4.5-11.0)
[2024-12-28 06:34] LABS: BUN Creatinine Ratio 17.9 (6-22); Blood Urea Nitrogen 15 mg/dL (9-20); Calcium 9.5 mg/dL (8.4-10.2); Carbon Dioxide 24 mmol/L (22-32); Chloride 101 mmol/L (98-107); Estimated Glomerular Filt Rate > 60 mL/min (>60); Glucose 108 mg/dL (70-100); HEMOLYSIS < 15 (0-50); Potassium 3.8 mmol/L (3.4-5.1); Sodium 134 mmol/L (137-145)
[2024-12-28 07:00] VITALS: BP 135/78; PULSE 98; RESP 15; TEMP 37.4; O2SAT 100
[2024-12-28] MEDS: NICOTINE 21 MG PATCH TOP (09:03)
[2024-12-28] MEDS: ENOXAPARIN 40 MG/0.4 ML SYRINGE SUBCUT (09:05)
[2024-12-28] MEDS: THIAMINE 100 MG TABLET PO (09:06)
[2024-12-28] MEDS: PREGABALIN 50 MG CAPSULE 100 MG PO ×3 (09:06→20:23)
[2024-12-28] MEDS: FUROSEMIDE 40 MG TABLET PO (09:06)
[2024-12-28] MEDS: POTASSIUM CHLORIDE 10 MEQ TAB PO (09:06)
[2024-12-28] MEDS: SPIRONOLACTONE 25 MG TABLET PO (09:06)
[2024-12-28] MEDS: MAGNESIUM OXIDE 400 MG TABLET PO ×2 (09:06→20:23)
[2024-12-28] MEDS: LORazepam 1 MG TABLET PO (09:07)
[2024-12-28] MEDS: ERTAPENEM 1 GM in SODIUM CHLORIDE 0.9% 100 ML IV (10:48)
[2024-12-28 11:00] VITALS: BP 114/75; PULSE 95; RESP 15; TEMP 37.3; O2SAT 99
[2024-12-28] MEDS: OXYCODONE IR 5 MG TABLET PO ×2 (11:46→20:26)
--- NOTE | 2024-12-28 13:50 | CM.DPC ---
DCP Cont. Reviewed EMR for status updates. Called both [facility] and [facility]. [facility] declines pt due to no upcoming private rooms. Left 2-messages for [facility] requesting a f/u return call to clarify if they can accept or not, and that he still needs a [employer] auth. If they decline, the last option is for pt to go to the Infusion Center daily for the next 4-6 weeks for OP IV ABO's.
[2024-12-28 16:00] VITALS: BP 117/72; PULSE 92; RESP 12; TEMP 37.3; O2SAT 100
[2024-12-28] MEDS: hydrOXYzine HCL 25 MG TABLET PO ×2 (16:51→20:26)
--- NOTE | 2024-12-28 19:34 | PM.PN.1 ---
Subjective Subjective Interval history: Summary: 49 yo male admitted w/alcohol dependence with withdrawal and osteomyelitis in the setting of right foot neuropathic ulcer with known preexisting osteomyelitis, hepatosplenomegaly, portal hypertension, peripheral neuropathy and hypertension. Was sent home w/IV ceftriaxone last admit, but he never gave himself the abx.?He is okay with SNF but struggling to find an accepting facility. S: Intermittent foot pain, but for the most part it is painless. He denies any chest pain, or dyspnea. Exam Vital Signs (past 8 hours): - 12/28/24 16:00 Temperature 99.2 F Pulse Rate 92 H Respiratory Rate 12 Blood Pressure 117/72 Pulse Oximetry 100 Oxygen Flow Rate 0 Fraction of Inspired Oxygen 24 SaO2/FiO2 Ratio 383 Oxygen Delivery Method Room Air Oxygen Flow Rate 0 Narrative Exam Narrative: NAD, alert and oriented. Fluent speech. Lungs are clear, normal rate and effort. Heart is regular, no murmur gallop or rub. Abdomen is soft, non distended. Extremities are free of edema. Right foot is wrapped. Objective Labs 12/28/24 06:03 12/28/24 06:03 Labs: Laboratory Results - last 24 hr 12/28/24 06:03 WBC 4.7 RBC 3.37 L Hgb 9.6 L Hct 28.3 L MCV 84.0 MCH 28.6 MCHC 34.0 RDW 19.6 H Plt Count 100 L Sodium 134 L Potassium 3.8 Chloride 101 Carbon Dioxide 24 BUN 15 Creatinine 0.84 Estimated GFR > 60 BUN/Creatinine Ratio 17.9 Glucose 108 H Calcium 9.5 PFSH Medical History Hepatosplenomegaly Portal hypertension Hepatosplenomegaly Foot osteomyelitis, right Neuropathic foot ulcer Decreased libido Erectile dysfunction Alcohol abuse (~2017) Low back pain (Unknown) Polyneuropathy (Unknown) Acne (Unknown) Hypertension (2004) Essential hypertension (09/12/16) Surgical History H/O surgical amputation of finger Hx of cholecystectomy (2001) Family History Grandmother Mental health problem Grandfather Cancer Grandmother Cancer Mother History of back problems Father Amputation leg, bilat Social History household members: spouse and family Smoking Status: Never smoker Tobacco: How many years used: 1 Smokeless tobacco user: chewing tobacco (many, many years) alcohol intake: current substance use type: does not use Assessment & Plan Assessment & Plan narrative: 1. Right foot neuropathic ulcer with osteomyelitis, present on admission and active. He declines any surgical intervention. ESBL E coli growing from cultures. After another conversation previously, he is amenable to going to a long-term facility. We are presently awaiting a private room as he has ESBL E coli and will need contact precautions. Also will require authorization from [employer]. Continue current antibiotics. if unable to find placement may need to see if he can do outpatient infusions, unclear if infectious disease provider willing to follow in that situation, will need to find out if that arises. 2. Alcohol dependence with withdrawal, now resolved Patient was treated for alcohol withdrawal earlier this hospital stay. This has now resolved. 3. Scleral icterus, present on admission and improving. Improved today. Overall, his LFTs are normalizing. 4. Hepatic encephalopathy, present on admission and resolved. He was initiated on lactulose this admission for an ammonia of 62. He has evidence of portal hypertension as well as hepatosplenomegaly. We discussed abstinence from alcohol could still result in resolution of most of his liver abnormalities. 5. Polyneuropathy, present on admission and active. Continue pregabalin. Will increase the dose from 75 mg t.i.d. to 100 mg t.i.d. today. He is also receiving as needed oxycodone. Code status Full Prophylaxis On Lovenox Disposition Awaiting long-term facility placement, he was to last facilities who are reviewing with his [employer] insurance. If these declined he will be want to go home with his PICC line and come back to the infusion center daily for IV ertapenem 1 g Q 24 hours. Unclear if infectious disease will agree to follow him in that situation. Time-Based Coding :: [TOTAL MINUTES] spent with patient and on the chart (including review of chart, obtaining history, exam, reviewing outside data, placing orders, documenting exam and treatment plan, and counseling patient) on [DATE]. Quality VTE Deep Vein Thrombosis/Pulmonary Embolism Present on Admission: No
[2024-12-28 20:00] VITALS: BP 124/76; PULSE 86; RESP 18; TEMP 37.3; O2SAT 100
[2024-12-28] MEDS: CALCIUM CARBONATE 500 MG TAB PO (20:23)
[2024-12-29 04:00] VITALS: BP 102/67; PULSE 89; RESP 16; TEMP 37.1; O2SAT 99
[2024-12-29 06:05] LABS: Hematocrit 29.8 % (41-53); Mean Corpuscular HGB Conc 33.4 % (30-36); Mean Corpuscular Hemoglobin 28.3 PG (26-34); Mean Corpuscular Volume 84.7 fL (80-100); Platelet Count 95 X10^3/uL (150-400); Red Blood Cell Count 3.52 X10^6/uL (4.5-5.9); Red Cell Distribution Width 19.8 % (11.6-14.8); White Blood Cell Count 4.4 X10^3/uL (4.5-11.0)
[2024-12-29 06:19] LABS: BUN Creatinine Ratio 19.5 (6-22); Blood Urea Nitrogen 17 mg/dL (9-20); Calcium 9.4 mg/dL (8.4-10.2); Carbon Dioxide 21 mmol/L (22-32); Chloride 102 mmol/L (98-107); Estimated Glomerular Filt Rate > 60 mL/min (>60); Glucose 102 mg/dL (70-100); HEMOLYSIS < 15 (0-50); Potassium 3.9 mmol/L (3.4-5.1); Sodium 133 mmol/L (137-145)
[2024-12-29 08:45] VITALS: BP 115/72; PULSE 78; RESP 17; TEMP 36.9; O2SAT 100
[2024-12-29] MEDS: ENOXAPARIN 40 MG/0.4 ML SYRINGE SUBCUT (09:21)
[2024-12-29] MEDS: FUROSEMIDE 40 MG TABLET PO (09:22)
[2024-12-29] MEDS: LACTULOSE 20 GM/30 ML SOLUTION PO (09:22)
[2024-12-29] MEDS: SPIRONOLACTONE 25 MG TABLET PO (09:22)
[2024-12-29] MEDS: POTASSIUM CHLORIDE 10 MEQ TAB PO (09:22)
[2024-12-29] MEDS: MAGNESIUM OXIDE 400 MG TABLET PO ×2 (09:22→21:55)
[2024-12-29] MEDS: PREGABALIN 50 MG CAPSULE 100 MG PO ×3 (09:22→21:55)
[2024-12-29] MEDS: THIAMINE 100 MG TABLET PO (09:22)
[2024-12-29] MEDS: NICOTINE 21 MG PATCH TOP (09:23)
[2024-12-29] MEDS: LORazepam 1 MG TABLET PO (09:24)
[2024-12-29] MEDS: TRAMADOL 50 MG TABLET 100 MG PO (09:24)
[2024-12-29] MEDS: ERTAPENEM 1 GM in SODIUM CHLORIDE 0.9% 100 ML IV (09:31)
--- NOTE | 2024-12-29 10:25 | PT.IIE ---
Current Diagnoses Alcohol dependence with withdrawal, unspecified (12/20/24) Surgical History (Last Reviewed 12/27/24 @ 07:33 by Otto George MD) H/O surgical amputation of finger Hx of cholecystectomy (2001) Medical History (Last Reviewed 12/27/24 @ 07:33 by Otto George MD) Acne (Unknown) Alcohol abuse (~2017) Decreased libido Erectile dysfunction Essential hypertension (09/12/16) Foot osteomyelitis, right Hepatosplenomegaly Hepatosplenomegaly Hypertension (2004) Low back pain (Unknown) Neuropathic foot ulcer Polyneuropathy (Unknown) Portal hypertension Physical Therapy Inpatient Evaluation/Re-Eval M1 PT/OT-IP Prior Functional Status Start: 12/29/24 11:28 Freq: NEEDED Status: Active Protocol: Document 12/29/24 10:25 AB (Rec: 12/29/24 11:49 AB [id number]) Medical Review Prior Functional Status Medical History Reviewed Yes Communication able to make needs known Mobility and Gait pt stated that he was modified independent witha ll mobilities and ambulation without AD but occasionally uses a FWW; tends to furniture cruise when not using a FWW; pt stated that he has h/o falls Social History Household Members spouse,family Living Arrangements Apartment/Condo Number of Floors (Floors) One Floor Number of Stairs To Enter/Railing? 5 steps L rail ascending Home Environment Standard Height Toilet,Tub/ Shower Home Equipment Front Wheel Walker,Shower Seat with Backrest,Hand Held Shower Additional Social History Comment pt lives with his spouse and [id number] but stated that both are disabled and will not be able to assist him M2 PT-IP Current Condition Start: 12/29/24 11:28 Freq: NEEDED Status: Active Protocol: Document 12/29/24 10:25 AB (Rec: 12/29/24 11:49 AB [id number]) Physical Therapy Current Condition Current Condition Evaluation Date 12/29/24 Treatment Diagnosis R 5th toe osteomyelitis; ETOH; difficulty in walking Onset Date 12/20/24 M3 PT-IP Subjective Start: 12/29/24 11:28 Freq: NEEDED Status: Active Protocol: Document 12/29/24 10:25 AB (Rec: 12/29/24 11:49 AB [id number]) Subjective Physical Therapy Visit Type Type Initial Evaluation Visit Start Time 10:25 Visit Stop Time 10:50 Number of GARDENING MANAGER Visits 0 Physical Therapy Visit Comments Patient Comments agreeable to do PT Therapy Pain Assessment Pain When Pain Assessed At Rest Pain Present Pain Present Pain Reported Location Right Foot Intensity 5 Scale Used Numeric (0 - 10) Pain Management Techniques Distraction,Elevation, Modification of Treatment,Re- positioning,Timing of Activity with Medications M4 PT-IP Mobility and Gait Start: 12/29/24 11:28 Freq: NEEDED Status: Active Protocol: Document 12/29/24 10:25 AB (Rec: 12/29/24 11:49 AB [id number]) PT-Bed Mobility Assessment Supine to Sit Supine to Sit Independent Sit to Supine Sit to Supine Independent PT-Transfer Assessment Sit to and From Stand Sit to and from Stand Standby Assistance,1 Person Assistance,Use of Upper Extremities Equipment Transfer Assistive Device Gait Belt,Front Wheeled Walker Orthotic/Prosthetic Devices or Brace: No Comments Mobility Comments pt in bed and agreed to do PT. obtained PLOF and home set up . pt completed supine to sit mod I. sit to stand SBA and ambulated in room using FWW SBA to CGA. (+) tremors LLE>R . presents with ataxic gait. pt with BLE neuropathis. pt also has R 5th toe osteomyelitis with c/o pain with weight bearing affecting ambulation. Assessed ambulation without AD min A and cues. unsteady gait with increase lateral leaning to the R and with(+) LOB x 2. educated pt on safety and use of FWW at this time and agreed . pt also completed up/down step stool using L rail mod A and cues. pt sat back on bed. sit to supine mod I. positioned pt in bed. call light and table placed within reach. Gait Assessment Gait Gait Assistance Required: Standby Assistance,Contact Guard Assist,Minimum Assistance Distance (Feet) 30 Able to Maintain Weight Bearing Status Yes During Gait Assistive Devices Assistive Device None,Gait Belt,Front Wheeled Walker Orthotic/Prosthetic Devices or Brace: No Gait Deviations General Gait Pattern Decreased Stride Length, Decreased Feet Clearance Factors Limiting Gait Function Factors Limiting Gait Function Decreased Activity Tolerance, Decreased Sensation,Decreased Strength,Limited Range of Motion,Pain,Poor Balance,Poor Safety Awareness Stair Climbing Assessment Evaluation Level of Assist On Stairs Moderate Assistance Devices Stair Climbing Assistive Devices Left Railing Technique/Endurance Stair Climbing Direction Ascend and Descend Stair Climbing Technique Step to Step Number of Steps Climbed 1 Query Text: Stair Climbing Set # Repetitions (reps) 1 PT-Balance Assessment Sitting Balance and Reactions Static Sitting Balance Ability Normal Dynamic Sitting Balance Ability Good Standing Balance and Reactions Static Standing Balance Ability Fair Dynamic Standing Balance Ability Poor Device Used without AD M5 PT-IP Objective Assessments Start: 12/29/24 11:28 Freq: NEEDED Status: Active Protocol: Document 12/29/24 10:25 AB (Rec: 12/29/24 11:49 AB [id number]) Orientation Orientation/Cognition Level of Alertness Alert Orientation Name,Place,Situation Language Function Ability No Deficits Noted Safety Awareness Decreased Safety Awareness Memory Description No Deficits Noted Gross Range of Motion Lower Extremity ROM Assessment Within Functional Limits Strength Lower Extremity Strength Assessment Within Functional Limits Sensation Assessment Sensation Gross Sensation Right UE Impaired,Right LE Impaired,Left LE Impaired Sensation Description Numbness Other Assessments Other Other Assessments (+) LE tremors during ambulation M6 PT-IP Treatment Start: 12/29/24 11:28 Freq: NEEDED Status: Active Protocol: Document 12/29/24 10:25 AB (Rec: 12/29/24 11:49 AB [id number]) Physical Therapy Treatment Education Education Provided Safety M7 PT-IP Assessment and Plan Start: 12/29/24 11:28 Freq: NEEDED Status: Active Protocol: Document 12/29/24 10:25 AB (Rec: 12/29/24 11:49 AB [id number]) PT Summary Assessment and Plan Potential Rehabilitation Potential Fair Status of Condition at Evaluation Evolving Summary Impairments Pain,ROM,Strength,Balance, Coordination,Sensation,Tone, Cognition,Bed Mobility, Transfers,Gait,Activity Tolerance Assessment Summary pt is a 49 y/o M who is admitted for ETOH, R 5th toe osteomyelitis, cellulitis. pt is modified independent with bed mobility, SBA to CGA with ambulation using FWW but required min A for ambulation without AD with (+) LOB. pt also needing mod A for stair climbing. pt will need assistance at home. pt may require SNF rehab to improve functional independence. Goals Transfer Goal Independent,Front Wheeled Walker Gait Goal Independent,Front Wheel Walker Gait Distance 200 Other Goals improve transfers, ambulation using LRAD/without AD 250 ft mod I up/down 5 steps L rail ascending SBA Days to Meet Goals 10 Frequency of Treatment Frequency Of Treatment Once a Day Treatment Plan Physical Therapy Treatment Plan Bed Mobility Training,Transfer Training,Gait Training, Therapeutic Exercise,Balance Retraining,Discharge Planning, Hot or Cold Pack,Neuromuscular Re-ed,Coordination Retraining ,Manual Therapy Precautions Other Precautions falls Recommendations To Nursing Amount of Assist Needed 1 Person Assist Discharge Recommendations PT Discharge Recommendations Home with Assistance,Home Health,SNF Rehab,Home vs SNF Transportation Needs at Discharge Private Vehicle,Wheelchair/ Cabulance
[2024-12-29] MEDS: CALCIUM CARBONATE 500 MG TAB PO ×2 (11:57→15:58)
--- NOTE | 2024-12-29 13:21 | CM.DPC ---
DCP Cont. Reviewed EMR and team rounds for status updates. Received call from [facility], faxed them updated records for review. PT did initial eval today to support placement. Pending response from [facility] for final decision.
[2024-12-29 14:34] VITALS: BP 120/72; PULSE 93; RESP 17; TEMP 37.5; O2SAT 98
--- NOTE | 2024-12-29 17:35 | PM.PN.1 ---
Subjective Subjective Interval history: Summary: 49 yo male admitted w/alcohol dependence with withdrawal and osteomyelitis in the setting of right foot neuropathic ulcer with known preexisting osteomyelitis, hepatosplenomegaly, portal hypertension, peripheral neuropathy and hypertension. Was sent home w/IV ceftriaxone last admit, but he never gave himself the abx.?He is okay with SNF but struggling to find an accepting facility. S: Intermittent foot pain, but for the most part it is painless. He denies any chest pain, or dyspnea. Exam Vital Signs (past 8 hours): - 12/29/24 14:34 Temperature 99.5 F Pulse Rate 93 H Respiratory Rate 17 Blood Pressure 120/72 Pulse Oximetry 98 Oxygen Flow Rate 0 Fraction of Inspired Oxygen 24 SaO2/FiO2 Ratio 383 Oxygen Delivery Method Room Air Oxygen Flow Rate 0 Narrative Exam Narrative: NAD, alert and oriented. Fluent speech. Lungs are clear, normal rate and effort. Heart is regular, no murmur gallop or rub. Abdomen is soft, non distended. Extremities are free of edema. Right foot is wrapped. Objective Labs 12/29/24 05:53 12/29/24 05:53 Labs: Laboratory Results - last 24 hr 12/29/24 05:53 WBC 4.4 L RBC 3.52 L Hgb 10.0 L Hct 29.8 L MCV 84.7 MCH 28.3 MCHC 33.4 RDW 19.8 H Plt Count 95 L Sodium 133 L Potassium 3.9 Chloride 102 Carbon Dioxide 21 L BUN 17 Creatinine 0.87 Estimated GFR > 60 BUN/Creatinine Ratio 19.5 Glucose 102 H Calcium 9.4 PFSH Medical History Hepatosplenomegaly Portal hypertension Hepatosplenomegaly Foot osteomyelitis, right Neuropathic foot ulcer Decreased libido Erectile dysfunction Alcohol abuse (~2017) Low back pain (Unknown) Polyneuropathy (Unknown) Acne (Unknown) Hypertension (2004) Essential hypertension (09/12/16) Surgical History H/O surgical amputation of finger Hx of cholecystectomy (2001) Family History Grandmother Mental health problem Grandfather Cancer Grandmother Cancer Mother History of back problems Father Amputation leg, bilat Social History household members: spouse and family Smoking Status: Never smoker Tobacco: How many years used: 1 Smokeless tobacco user: chewing tobacco (many, many years) alcohol intake: current substance use type: does not use Assessment & Plan Assessment & Plan narrative: 1. Right foot neuropathic ulcer with osteomyelitis, present on admission and active. He declines any surgical intervention. ESBL E coli growing from cultures. After another conversation previously, he is amenable to going to a [place] [facility] [place] facility. We are presently awaiting a private room as he has ESBL E coli and will need contact precautions. Also will require authorization from [employer]. Continue current antibiotics. - discussed with infectious disease today with outpatient referral sent today. 2. Alcohol dependence with withdrawal, now resolved Patient was treated for alcohol withdrawal earlier this hospital stay. This has now resolved. 3. Scleral icterus, present on admission and improving. Improved today. Overall, his LFTs are normalizing. 4. Hepatic encephalopathy, present on admission and resolved. He was initiated on lactulose this admission for an ammonia of 62. He has evidence of portal hypertension as well as hepatosplenomegaly. We discussed abstinence from alcohol could still result in resolution of most of his liver abnormalities. 5. Polyneuropathy, present on admission and active. Continue pregabalin. Will increase the dose from 75 mg t.i.d. to 100 mg t.i.d. today. He is also receiving as needed oxycodone. Code status Full Prophylaxis On Lovenox Disposition Awaiting [place] [facility] [place] facility placement, he was to last facilities who are reviewing with his [employer] insurance. If these declined will need to try swing bed. If still unable unclear disposition. Time-Based Coding :: [TOTAL MINUTES] spent with patient and on the chart (including review of chart, obtaining history, exam, reviewing outside data, placing orders, documenting exam and treatment plan, and counseling patient) on [DATE]. Quality VTE Deep Vein Thrombosis/Pulmonary Embolism Present on Admission: No
[2024-12-29] MEDS: OXYCODONE IR 5 MG TABLET PO ×2 (17:44→21:55)
[2024-12-29 20:35] VITALS: BP 120/73; PULSE 90; RESP 18; TEMP 37.3; O2SAT 99
[2024-12-30] MEDS: SODIUM CHLORIDE 0.9% FLUSH 10 ML IV ×3 (00:12→20:56)
[2024-12-30 04:00] VITALS: BP 122/72; PULSE 89; RESP 16; TEMP 37.1; O2SAT 100
[2024-12-30 08:00] VITALS: BP 116/67; PULSE 92; RESP 20; TEMP 37.1; O2SAT 100
[2024-12-30] MEDS: PREGABALIN 50 MG CAPSULE 100 MG PO ×3 (09:20→20:14)
[2024-12-30] MEDS: NICOTINE 21 MG PATCH TOP (09:21)
[2024-12-30] MEDS: LACTULOSE 20 GM/30 ML SOLUTION PO (09:21)
[2024-12-30] MEDS: POTASSIUM CHLORIDE 10 MEQ TAB PO (09:21)
[2024-12-30] MEDS: MAGNESIUM OXIDE 400 MG TABLET PO ×2 (09:21→20:14)
[2024-12-30] MEDS: THIAMINE 100 MG TABLET PO (09:21)
[2024-12-30] MEDS: SPIRONOLACTONE 25 MG TABLET PO (09:21)
[2024-12-30] MEDS: ENOXAPARIN 40 MG/0.4 ML SYRINGE SUBCUT (09:21)
[2024-12-30] MEDS: FUROSEMIDE 40 MG TABLET PO (09:21)
[2024-12-30] MEDS: hydrOXYzine HCL 25 MG TABLET PO ×2 (09:36→20:14)
[2024-12-30] MEDS: OXYCODONE IR 5 MG TABLET PO ×2 (09:36→20:14)
[2024-12-30] MEDS: ERTAPENEM 1 GM in SODIUM CHLORIDE 0.9% 100 ML IV (10:00)
--- NOTE | 2024-12-30 11:25 | PT.IPTN ---
Current Diagnoses Alcohol dependence with withdrawal, unspecified (12/20/24) Osteomyelitis, unspecified (12/20/24) Physical Therapy Treatment Note M2 PT-IP Current Condition Start: 12/29/24 11:28 Freq: NEEDED Status: Active Protocol: Document 12/30/24 11:08 SP (Rec: 12/30/24 12:36 SP [id number]) Physical Therapy Current Condition Current Condition Evaluation Date 12/29/24 Treatment Diagnosis R 5th toe osteomyelitis; ETOH; difficulty in walking Onset Date 12/20/24 M3 PT-IP Subjective Start: 12/29/24 11:28 Freq: NEEDED Status: Active Protocol: Document 12/30/24 11:08 SP (Rec: 12/30/24 12:36 SP [id number]) Subjective Physical Therapy Visit Type Type Treatment Note Visit Start Time 11:08 Visit Stop Time 11:25 Number of PUMPER HEAD Visits 1 Physical Therapy Visit Comments Patient Comments agreeable to do PT Therapy Pain Assessment Location Right Foot Intensity 5 Scale Used 5th toe with mobililty Description Burning,Throbbing Pain Management Techniques Distraction,Elevation, Modification of Treatment,Re- positioning,Timing of Activity with Medications M4 PT-IP Mobility and Gait Start: 12/29/24 11:28 Freq: NEEDED Status: Active Protocol: Document 12/30/24 11:08 SP (Rec: 12/30/24 12:36 SP [id number]) PT-Bed Mobility Assessment Supine to Sit Supine to Sit Independent Sit to Supine Sit to Supine Independent Scooting Scooting to Edge of Bed Independent PT-Transfer Assessment Sit to and From Stand Sit to and from Stand Standby Assistance,Use of Upper Extremities Equipment Transfer Assistive Device Gait Belt,Front Wheeled Walker Orthotic/Prosthetic Devices or Brace: No Transfers Transfer Destination Bed Transfer Technique pt ambulated /c FWW Transfer Ability Level of Assist Standby Assistance,Contact Guard Assistance,Use of Upper Extremities Comments Mobility Comments I bed mobility. STS SBA, little sway retro CGA assist safety. Gait around room /c FWW, receiprocal stepping, cues for keeping B feetinside FWW, stubbed R 5th toe navigating around end bed paign 04/09. Improved promity. 2 laps in room approx 60 ft. Asc/desc 1 portable step x3 L HR and assimulate SPC giving PLATER HOT DIP on R , cued lead LLE ascend, RLE descend unsteady during LLE stance time descending L leg shaky and trunk sways Min A for support safety. DIscussion continued use of FWW for safety stability gait, furniture walking leaned and not as good posturing stabiltiy. Pt returned to bed I. Recommending SNF for continued strength LLE and balance for safety return home, and MIL unable to assist safety stair mgt and no one else available. Will continue to assess progress. Gait Assessment Gait Gait Assistance Required: Standby Assistance,Contact Guard Assist,1 Person Assist Distance (Feet) 60 Able to Maintain Weight Bearing Status Yes During Gait Assistive Devices Assistive Device Gait Belt,Front Wheeled Walker Orthotic/Prosthetic Devices or Brace: No Gait Deviations General Gait Pattern Antalgic,Decreased Stride Length,Decreased Feet Clearance,Wide Based Gait Factors Limiting Gait Function Factors Limiting Gait Function Decreased Activity Tolerance, Decreased Sensation,Decreased Strength,Limited Range of Motion,Pain,Poor Balance,Poor Safety Awareness Comments Gait Comments see mobility comments Stair Climbing Assessment Evaluation Level of Assist On Stairs Minimal Assistance,1 Person Assistance Devices Stair Climbing Assistive Devices Straight Cane,Left Railing Technique/Endurance Stair Climbing Direction Ascend and Descend Stair Climbing Technique Step to Step Number of Steps Climbed 1 Stair Climbing Set # Repetitions (reps) 3 Comments Stair Climbing Comments see mobility comments PT-Balance Assessment Sitting Balance and Reactions Static Sitting Balance Ability Normal Dynamic Sitting Balance Ability Good Standing Balance and Reactions Static Standing Balance Ability Fair Dynamic Standing Balance Ability Fair Device Used FWW M5 PT-IP Objective Assessments Start: 12/29/24 11:28 Freq: NEEDED Status: Active Protocol: Document 12/29/24 10:25 AB (Rec: 12/29/24 11:49 AB [id number]) Orientation Orientation/Cognition Level of Alertness Alert Orientation Name,Place,Situation Language Function Ability No Deficits Noted Safety Awareness Decreased Safety Awareness Memory Description No Deficits Noted Gross Range of Motion Lower Extremity ROM Assessment Within Functional Limits Strength Lower Extremity Strength Assessment Within Functional Limits Sensation Assessment Sensation Gross Sensation Right UE Impaired,Right LE Impaired,Left LE Impaired Sensation Description Numbness Other Assessments Other Other Assessments (+) LE tremors during ambulation M6 PT-IP Treatment Start: 12/29/24 11:28 Freq: NEEDED Status: Active Protocol: Document 12/30/24 11:08 SP (Rec: 12/30/24 12:36 SP [id number]) Physical Therapy Treatment Education Education Provided Safety M7 PT-IP Assessment and Plan Start: 12/29/24 11:28 Freq: NEEDED Status: Active Protocol: Document 12/30/24 11:08 SP (Rec: 12/30/24 12:36 SP [id number]) PT Summary Assessment and Plan Potential Rehabilitation Potential Fair Status of Condition at Evaluation Evolving Summary Impairments Pain,ROM,Strength,Balance, Coordination,Sensation,Tone, Cognition,Bed Mobility, Transfers,Gait,Activity Tolerance Progress Towards Goals Slow Progress due to Activity Tolerance Assessment Summary Pt CGA/SBA during gait /c FWW, Min A for step mgt that family unable to assist. Recommending SNF for progress strength before return home, needs to be able to Stair I for safety. Goals Transfer Goal Independent,Front Wheeled Walker Gait Goal Independent,Front Wheel Walker Gait Distance 200 Other Goals improve transfers, ambulation using LRAD/without AD 250 ft mod I up/down 5 steps L rail ascending SBA Days to Meet Goals 10 Frequency of Treatment Frequency Of Treatment Once a Day Treatment Plan Physical Therapy Treatment Plan Bed Mobility Training,Transfer Training,Gait Training, Therapeutic Exercise,Balance Retraining,Discharge Planning, Hot or Cold Pack,Neuromuscular Re-ed,Coordination Retraining ,Manual Therapy Other Recommendations and Next Treatment stair mgt, add BLE ther ex , Focus standng balance activities. Precautions Other Precautions falls Recommendations To Nursing Amount of Assist Needed 1 Person Assist Discharge Recommendations PT Discharge Recommendations Home with Assistance,Home Health,SNF Rehab,Home vs SNF Transportation Needs at Discharge Private Vehicle,Wheelchair/ Cabulance
[2024-12-30 16:00] VITALS: BP 121/66; PULSE 92; RESP 20; TEMP 37.3; O2SAT 100
--- NOTE | 2024-12-30 16:34 | PM.PN.1 ---
Subjective Subjective Interval history: Summary: 49 yo male admitted w/alcohol dependence with withdrawal and osteomyelitis in the setting of right foot neuropathic ulcer with known preexisting osteomyelitis, hepatosplenomegaly, portal hypertension, peripheral neuropathy and hypertension. Was sent home w/IV ceftriaxone last admit, but he never gave himself the abx.?He is okay with SNF but struggling to find an accepting facility. S: Intermittent foot pain, but for the most part it is painless. He denies any chest pain, or dyspnea. Exam Vital Signs (past 8 hours): Fraction of Inspired Oxygen 24 SaO2/FiO2 Ratio 383 Oxygen Delivery Method Room Air Oxygen Flow Rate 0 Narrative Exam Narrative: NAD, alert and oriented. Fluent speech. Lungs are clear, normal rate and effort. Heart is regular, no murmur gallop or rub. Abdomen is soft, non distended. Extremities are free of edema. Right foot is wrapped. no drainage on wrap today. Objective Labs 12/29/24 05:53 12/29/24 05:53 [facility] Medical History Hepatosplenomegaly Portal hypertension Hepatosplenomegaly Foot osteomyelitis, right Neuropathic foot ulcer Decreased libido Erectile dysfunction Alcohol abuse (~2017) Low back pain (Unknown) Polyneuropathy (Unknown) Acne (Unknown) Hypertension (2004) Essential hypertension (09/12/16) Surgical History H/O surgical amputation of finger Hx of cholecystectomy (2001) Family History Grandmother Mental health problem Grandfather Cancer Grandmother Cancer Mother History of back problems Father Amputation leg, bilat Social History household members: spouse and family Smoking Status: Never smoker Tobacco: How many years used: 1 Smokeless tobacco user: chewing tobacco (many, many years) alcohol intake: current substance use type: does not use Assessment & Plan Assessment & Plan narrative: 1. Right foot neuropathic ulcer with osteomyelitis, present on admission and active. He declines any surgical intervention. ESBL E coli growing from cultures. After another conversation previously, he is amenable to going to a nursing home facility. We are presently awaiting a private room as he has ESBL E coli and will need contact precautions. Also will require authorization from [employer]. Continue current antibiotics. - discussed with infectious disease today with outpatient referral sent. He requires 4-6 weeks of IV antibiotic with carbapenem. - patient has been denied from SNFs due to substance use history, also no swing bed available. - infectious disease provider not willing to follow as outpatient if plan is for outpatient infusion center or home infusion given patient. - will likely need to keep until next week and re-attempt swing bed. - for now continue carbapenem. Check CBC, CMP, CK, ESR, CRP twice weekly. Ordered for 12/31. 2. Alcohol dependence with withdrawal, now resolved Patient was treated for alcohol withdrawal earlier this hospital stay. This has now resolved. 3. Scleral icterus, present on admission and improving. Improved today. Overall, his LFTs are normalizing. 4. Hepatic encephalopathy, present on admission and resolved. He was initiated on lactulose this admission for an ammonia of 62. He has evidence of portal hypertension as well as hepatosplenomegaly. We discussed abstinence from alcohol could still result in resolution of most of his liver abnormalities. -He is reporting >5 BM per day on 20 mg of lactulose daily, will reduce to 10 mg tomorrow. Titrate to 2-3 per day. 5. Polyneuropathy, present on admission and active. Continue pregabalin. Will increase the dose from 75 mg t.i.d. to 100 mg t.i.d. today. He is also receiving as needed oxycodone. Code status Full Prophylaxis On Lovenox Disposition Unclear as discussed above, possibly swing bed next week. Time-Based Coding :: [TOTAL MINUTES] spent with patient and on the chart (including review of chart, obtaining history, exam, reviewing outside data, placing orders, documenting exam and treatment plan, and counseling patient) on [DATE]. Quality VTE Deep Vein Thrombosis/Pulmonary Embolism Present on Admission: No
[2024-12-30] MEDS: CALCIUM CARBONATE 500 MG TAB PO (20:14)
[2024-12-30 20:32] VITALS: BP 128/81; PULSE 94; RESP 16; TEMP 37.1; O2SAT 100
[2024-12-31 04:05] VITALS: BP 120/71; PULSE 86; RESP 16; TEMP 37.3; O2SAT 97
[2024-12-31 04:22] LABS: Add Manual Diff / Slide Review NO; Basophils Absolute Auto 0 /uL (0-100); Basophils Percent Auto 1.1 % (0-2); Eosinophils Absolute Auto 200 /uL (0-450); Hematocrit 29.3 % (41-53); Lymphocytes Absolute Auto 1400 /uL (1100-4500); Lymphocytes Percent Auto 32.9 % (25-40); Mean Corpuscular Hemoglobin 28.8 PG (26-34); Mean Corpuscular Volume 84.7 fL (80-100); Monocytes Absolute Auto 500 /uL (0-900); Monocytes Percent Auto 11.9 % (3-14); Neutrophils Absolute Auto 2100 /uL (1500-7000); Neutrophils Percent Auto 50.1 % (50-75); Platelet Count 91 X10^3/uL (150-400); Red Blood Cell Count 3.46 X10^6/uL (4.5-5.9); Red Cell Distribution Width 19.3 % (11.6-14.8); White Blood Cell Count 4.1 X10^3/uL (4.5-11.0)
[2024-12-31] MEDS: CALCIUM CARBONATE 500 MG TAB PO ×2 (04:45→10:46)
[2024-12-31 04:49] LABS: Alanine Aminotransferase 31 IU/L (<50); Albumin 3.9 g/dL (3.5-5.0); Albumin Globulin Ratio 1.1 (1.0-2.8); Alkaline Phosphatase 106 U/L (38-126); Aspartate Aminotransferase 63 IU/L (17-59); BUN Creatinine Ratio 14.9 (6-22); Bilirubin Total 1.7 mg/dL (0.2-1.3); Blood Urea Nitrogen 15 mg/dL (9-20); Calcium 9.3 mg/dL (8.4-10.2); Carbon Dioxide 22 mmol/L (22-32); Chloride 104 mmol/L (98-107); Estimated Glomerular Filt Rate > 60 mL/min (>60); Globulin 3.7 g/dL (1.7-4.1); Glucose 107 mg/dL (70-100); HEMOLYSIS 24 (0-50); Potassium 4.1 mmol/L (3.4-5.1); Sodium 134 mmol/L (137-145); Total Protein 7.6 g/dL (6.3-8.2)
[2024-12-31 06:53] LABS: C-Reactive Protein Quant 1.1 mg/dL (<1.0); Creatine Kinase 48 U/L (55-170)
[2024-12-31 07:01] LABS: Erythrocyte Sedimentation Rate 56 MM/HR (0-15)
[2024-12-31 08:00] VITALS: BP 109/64; PULSE 93; RESP 12; TEMP 37.4; O2SAT 93
--- NOTE | 2024-12-31 09:18 | DIET.PN1 ---
Dietary Progress Note Assessment: RD f/u Pt continuies with good PO intakes tolerating >75%. DFM reviewed for meal composition. Pt already ordering additional protein serving with 2 meals/day to support EER. Will continue to monitor PO intakes and meal composition. Ht: 177.8 cm Wt: 104.7 kg BMI: 33.1 Last BM: 12/29/24 (12/29/24 18:12) MNA: 10 Luis Score: 20 Diet: 12/20/24 Dinner General (Regular) Diet Diet Modifications: Nutrition Percent Meal Consumed 75% 12/30/24 09:52 Percent Meal Consumed 100% 12/29/24 18:12 Labs: RBC 3.46 X10^6/uL (4.5-5.9) L 12/31/24 04:02 Hgb 10.0 g/dL (13.5-17.5) L 12/31/24 04:02 Hct 29.3 % (41-53) L 12/31/24 04:02 Creatinine 1.01 mg/dL (0.66-1.25) 12/31/24 04:02 Lactate 1.4 mmol/L (0.7-2.1) 12/20/24 04:54 Iron 30 ug/dL (49-181) L 12/21/24 06:10 % Saturation 10 % (20-50) L 12/21/24 06:10 Electronically Signed by: Pretty Robledo 12/31/24 09:18 Clinical Dietitian [address] [address]
[2024-12-31] MEDS: MAGNESIUM OXIDE 400 MG TABLET PO ×2 (09:33→20:56)
[2024-12-31] MEDS: PREGABALIN 50 MG CAPSULE 100 MG PO ×3 (09:33→20:57)
[2024-12-31] MEDS: FUROSEMIDE 40 MG TABLET PO (09:33)
[2024-12-31] MEDS: POTASSIUM CHLORIDE 10 MEQ TAB PO (09:33)
[2024-12-31] MEDS: SPIRONOLACTONE 25 MG TABLET PO (09:34)
[2024-12-31] MEDS: NICOTINE 21 MG PATCH TOP (09:34)
[2024-12-31] MEDS: THIAMINE 100 MG TABLET PO (09:34)
[2024-12-31] MEDS: SODIUM CHLORIDE 0.9% FLUSH 10 ML IV ×2 (09:34→20:57)
[2024-12-31] MEDS: LACTULOSE 20 GM/30 ML SOLUTION 10 GM PO (09:35)
[2024-12-31] MEDS: ENOXAPARIN 40 MG/0.4 ML SYRINGE SUBCUT (09:36)
[2024-12-31] MEDS: ERTAPENEM 1 GM in SODIUM CHLORIDE 0.9% 100 ML IV (09:59)
[2024-12-31] MEDS: OXYCODONE IR 5 MG TABLET PO ×2 (13:54→20:57)
[2024-12-31] MEDS: LORazepam 1 MG TABLET PO (15:09)
--- NOTE | 2024-12-31 15:35 | PT.IPTN ---
Current Diagnoses Alcohol dependence with withdrawal, unspecified (12/20/24) Osteomyelitis, unspecified (12/20/24) Physical Therapy Treatment Note M2 PT-IP Current Condition Start: 12/29/24 11:28 Freq: NEEDED Status: Active Protocol: Document 12/30/24 11:08 SP (Rec: 12/30/24 12:36 SP [id number]) Physical Therapy Current Condition Current Condition Evaluation Date 12/29/24 Treatment Diagnosis R 5th toe osteomyelitis; ETOH; difficulty in walking Onset Date 12/20/24 M3 PT-IP Subjective Start: 12/29/24 11:28 Freq: NEEDED Status: Active Protocol: Document 12/31/24 15:35 AB (Rec: 12/31/24 16:08 AB [id number]) Subjective Physical Therapy Visit Type Type Treatment Note Visit Start Time 15:35 Visit Stop Time 16:00 Number of TOURISM [employer]ENTER Visits 0 Physical Therapy Visit Comments Patient Comments agreeable to do PT M4 PT-IP Mobility and Gait Start: 12/29/24 11:28 Freq: NEEDED Status: Active Protocol: Document 12/31/24 15:35 AB (Rec: 12/31/24 16:08 AB [id number]) PT-Bed Mobility Assessment Supine to Sit Supine to Sit Independent Sit to Supine Sit to Supine Independent PT-Transfer Assessment Sit to and From Stand Sit to and from Stand Standby Assistance,Contact Guard Assistance Equipment Transfer Assistive Device Gait Belt,Front Wheeled Walker Orthotic/Prosthetic Devices or Brace: No Comments Mobility Comments pt in bed and agreed to do PT. Mod I with bed mobility. sit to stand from EOB SBA and ambulation in room initially and then out in the hallway ~ 125 ft using FWW SBA to occasionally CGA and cues for safety. cued to slow down. pt with increase RLE ER and cued to correct. pt continue to have (+) tremors. pt completed up/down step stool using bed rail and side of walker as rails CGA. completed again with just holding on to one support CGA. pt went back to bed. mod I for sit to supine. call light and table next to pt. Gait Assessment Gait Gait Assistance Required: Standby Assistance Distance (Feet) 125 Able to Maintain Weight Bearing Status Yes During Gait Assistive Devices Assistive Device Gait Belt,Front Wheeled Walker Orthotic/Prosthetic Devices or Brace: No Gait Deviations General Gait Pattern Decreased Stride Length, Decreased Feet Clearance Factors Limiting Gait Function Factors Limiting Gait Function Decreased Activity Tolerance, Decreased Sensation,Decreased Strength,Limited Range of Motion,Poor Balance,Poor Safety Awareness Stair Climbing Assessment Evaluation Level of Assist On Stairs Contact Guard Assistance Devices Stair Climbing Assistive Devices Left Railing,Right Railing Technique/Endurance Stair Climbing Direction Ascend and Descend Stair Climbing Technique Step to Step Number of Steps Climbed 1 Stair Climbing Set # Repetitions (reps) 2 M5 PT-IP Objective Assessments Start: 12/29/24 11:28 Freq: NEEDED Status: Active Protocol: Document 12/29/24 10:25 AB (Rec: 12/29/24 11:49 AB [id number]) Orientation Orientation/Cognition Level of Alertness Alert Orientation Name,Place,Situation Language Function Ability No Deficits Noted Safety Awareness Decreased Safety Awareness Memory Description No Deficits Noted Gross Range of Motion Lower Extremity ROM Assessment Within Functional Limits Strength Lower Extremity Strength Assessment Within Functional Limits Sensation Assessment Sensation Gross Sensation Right UE Impaired,Right LE Impaired,Left LE Impaired Sensation Description Numbness Other Assessments Other Other Assessments (+) LE tremors during ambulation M6 PT-IP Treatment Start: 12/29/24 11:28 Freq: NEEDED Status: Active Protocol: Document 12/31/24 15:35 AB (Rec: 12/31/24 16:08 AB [id number]) Physical Therapy Treatment Education Education Provided Safety M7 PT-IP Assessment and Plan Start: 12/29/24 11:28 Freq: NEEDED Status: Active Protocol: Document 12/31/24 15:35 AB (Rec: 12/31/24 16:08 AB [id number]) PT Summary Assessment and Plan Potential Rehabilitation Potential Good Summary Impairments Pain,ROM,Strength,Balance, Coordination,Sensation, Transfers,Gait,Activity Tolerance Progress Towards Goals Slow Progress due to Activity Tolerance,Slow Progress - Other Assessment Summary pt slowly progressing with mobility. pt requiring SBA to CGA with transfers and ambulation using FWW, CGA for stair climbing. will continue to assess progress. Goals Transfer Goal Independent,Front Wheeled Walker Gait Goal Independent,Front Wheel Walker Gait Distance 200 Other Goals improve transfers, ambulation using LRAD/without AD 250 ft mod I up/down 5 steps L rail ascending SBA Days to Meet Goals 10 Frequency of Treatment Frequency Of Treatment Once a Day Treatment Plan Physical Therapy Treatment Plan Bed Mobility Training,Transfer Training,Gait Training, Therapeutic Exercise,Balance Retraining,Discharge Planning, Hot or Cold Pack,Neuromuscular Re-ed,Coordination Retraining ,Manual Therapy Other Recommendations and Next Treatment stair climbing Focus Precautions Other Precautions falls Recommendations To Nursing Amount of Assist Needed 1 Person Assist Discharge Recommendations PT Discharge Recommendations Home with Assistance,Home Health,SNF Rehab,Home vs SNF Transportation Needs at Discharge Private Vehicle,Wheelchair/ Cabulance
[2024-12-31 16:00] VITALS: BP 120/74; PULSE 92; RESP 12; TEMP 37.3; O2SAT 98
--- NOTE | 2024-12-31 17:06 | CM.DPC ---
DCP Continued: Reviewed EMR and team rounds for pt?s medical status. Multidisciplinary discussion around appropriate dc plans for patient to obtain entire course of daily IV Ertapenem: Swing bed placement vs. Infusion Clinic referral for outpatient daily infusions. It is reported that pt has been declined at referred SNFs due to insurance issues: Michelle Perkins, [facility] and [facility]. DCP called [facility] and discussed pt, it is reported that pt's insurance might also be a barrier there but they are willing to review for swing bed placement. DCP called [facility] [place], it is reported that they are still on a admission hold over the weekend due to a Norovirus outbreak at their facility. They are hopeful to review the pt on Friday, 01/03 when that hold is lifted. DCP faxed referrals to the swing bed facilities above. Infusion Clinic closed (Open Friday-, 8:00am-4:30pm) so could not make referral or discuss possible outpatient plan. Plan: Pending possible swing bed placement vs. Infusion Clinic for rest of infusion course. CM Team will continue to follow for coordination of discharge plans. ANGELICA Tang
--- NOTE | 2024-12-31 18:53 | P.PN_ITS ---
Subjective Subjective Date Patient Seen: 12/31/24 Time Patient Seen: 07:55 Interval history: Narrative: This is a 49-year-old male with alcoholism, previous alcohol withdrawal syndrome, right foot neuropathic ulcer with osteomyelitis, hepatosplenomegaly, portal hypertension, peripheral neuropathy and hypertension who presents with alcohol withdrawal and continued right foot cellulitis/osteomyelitis. He was here for 5 days in October and then discharged with a plan to complete 2 weeks of empiric ceftriaxone for the osteomyelitis, which would have ended on December 06. He had returned to the ED once since then stating that he was not comfortable giving himself the antibiotic so it is unclear whether he ever finished it. He says that his PICC line was caught on something and came out about 2 days ago. He really can not give any other history other than needing a new plan for treatment and wanting to stop drinking. He is speaking very slowly and appears to be encephalopathic. He has very diminished recall ability. He does not report any fevers or foot pain. He does have dense neuropathic changes in his feet, likely related to alcohol use and so has very little feeling. He also has a recent CT scan showing hepatosplenomegaly and portal hypertension so likely has end-stage liver disease. An ammonia level is pending. A repeat MRI shows continued osteomyelitis of the right 5th metatarsal at the MTP joint. Orthopedics will be consulted. The patient has been very clear that he does not wish to have amputation treatment and would ?rather .? His hemoglobin remains suppressed and unchanged at 8.7 with a bilirubin of 2.0. The admitting alcohol level is 258. He has a distinctive alcoholic odor to his breath. Interval history: The patient states that his pain is adequately controlled. He underwent bone biopsy this evening. Exam Vital Signs (past 8 hours): - 12/31/24 16:00 Temperature 99.1 F Pulse Rate 92 H Respiratory Rate 12 Blood Pressure 120/74 Pulse Oximetry 98 Oxygen Flow Rate 0 Fraction of Inspired Oxygen 24 SaO2/FiO2 Ratio 383 Oxygen Delivery Method Room Air Oxygen Flow Rate 0 Narrative Exam Narrative: NAD, alert and oriented. Fluent speech. Lungs are clear, normal rate and effort. Heart is regular, no murmur gallop or rub. Abdomen is soft, non distended. Extremities are free of edema. Right foot is is notable for a right 5th lateral MTP area of mild erythema without discharge or fluctuance. Objective Labs 12/31/24 04:02 12/31/24 04:02 Labs: Laboratory Results - last 24 hr 12/31/24 04:02 WBC 4.1 L RBC 3.46 L Hgb 10.0 L Hct 29.3 L MCV 84.7 MCH 28.8 MCHC 34.0 RDW 19.3 H Plt Count 91 L Neut % (Auto) 50.1 Lymph % (Auto) 32.9 Aiken % (Auto) 11.9 Eos % (Auto) 4.0 Baso % (Auto) 1.1 Neut # (Auto) 2100 Lymph # (Auto) 1400 Aiken # (Auto) 500 Eos # (Auto) 200 Baso # (Auto) 0 ESR 56 H Sodium 134 L Potassium 4.1 Chloride 104 Carbon Dioxide 22 BUN 15 Creatinine 1.01 Estimated GFR > 60 BUN/Creatinine Ratio 14.9 Glucose 107 H Calcium 9.3 Total Bilirubin 1.7 H AST 63 H ALT 31 Alkaline Phosphatase 106 Total Creatine Kinase 48 L C-Reactive Protein 1.1 H Total Protein 7.6 Albumin 3.9 Globulin 3.7 Albumin/Globulin Ratio 1.1 [facility] Medical History Hepatosplenomegaly Portal hypertension Hepatosplenomegaly Foot osteomyelitis, right Neuropathic foot ulcer Decreased libido Erectile dysfunction Alcohol abuse (~2016) Low back pain (Unknown) Polyneuropathy (Unknown) Acne (Unknown) Hypertension (2004) Essential hypertension (09/12/16) Surgical History H/O surgical amputation of finger Hx of cholecystectomy (2001) Family History Grandmother Mental health problem Grandfather Cancer Grandmother Cancer Mother History of back problems Father Amputation leg, bilat Social History household members: spouse and family Smoking Status: Never smoker Tobacco: How many years used: 1 Smokeless tobacco user: chewing tobacco (many, many years) alcohol intake: current substance use type: does not use Assessment & Plan Assessment & Plan narrative: 1. Right foot neuropathic ulcer with osteomyelitis, present on admission and active. He declines any surgical intervention. ESBL E coli growing from cultures. After another conversation previously, he is amenable to going to a shelter facility. We are presently awaiting a private room as he has ESBL E coli and will need contact precautions. Also will require authorization from [employer]. Continue current antibiotics. - discussed with infectious disease with outpatient referral sent. He requires 4-6 weeks of IV antibiotic with carbapenem. - patient has been denied from SNFs due to substance use history, also no swing bed available. - infectious disease provider not willing to follow as outpatient if plan is for outpatient infusion center or home infusion given patient. - will likely need to keep until next week and re-attempt swing bed. - for now continue carbapenem. - bone biopsy results pending 12/31/2024. 2. Alcohol dependence with withdrawal, now resolved Patient was treated for alcohol withdrawal earlier this hospital stay, now resolved. 3. Scleral icterus, present on admission and improving. Improved today. Overall, his LFTs are normalizing. 4. Hepatic encephalopathy, present on admission and resolved. He was initiated on lactulose this admission for an ammonia of 62. He has evidence of portal hypertension as well as hepatosplenomegaly. We discussed abstinence from alcohol could still result in resolution of most of his liver abnormalities. -He reported >5 BM per day on 20 mg of lactulose daily, reduced to 10 mg today. Titrate to 2-3 per day. 5. Polyneuropathy, present on admission and active. Continue pregabalin. Increased dose from 75 mg t.i.d. to 100 mg t.i.d. 12/30/2024. He is also receiving as needed oxycodone. Code status Full Prophylaxis On Lovenox Disposition Unclear as discussed above, possibly swing bed next week. Quality VTE Deep Vein Thrombosis/Pulmonary Embolism Present on Admission: No [employer] Document charge(s): No Charge Codes Subsequent inpatient/observation care: [id number]
[2024-12-31 20:41] VITALS: BP 140/86; PULSE 89; RESP 19; TEMP 36.6; O2SAT 99
[2024-12-31] MEDS: hydrOXYzine HCL 25 MG TABLET PO (20:57)
[2024-12-31] MEDS: TRAMADOL 50 MG TABLET 100 MG PO (21:52)
[2025-01-01 04:00] VITALS: BP 130/86; PULSE 86; RESP 18; TEMP 36.6; O2SAT 99
[2025-01-01] MEDS: POTASSIUM CHLORIDE 10 MEQ TAB PO (07:53)
[2025-01-01 08:00] VITALS: BP 123/79; PULSE 87; RESP 12; TEMP 37.1; O2SAT 98
[2025-01-01] MEDS: ERTAPENEM 1 GM in SODIUM CHLORIDE 0.9% 100 ML IV (09:46)
[2025-01-01] MEDS: NICOTINE 21 MG PATCH TOP (09:47)
[2025-01-01] MEDS: PREGABALIN 50 MG CAPSULE 100 MG PO ×3 (09:49→20:29)
[2025-01-01] MEDS: MAGNESIUM OXIDE 400 MG TABLET PO ×2 (09:49→20:30)
[2025-01-01] MEDS: SPIRONOLACTONE 25 MG TABLET PO (09:50)
[2025-01-01] MEDS: SODIUM CHLORIDE 0.9% FLUSH 10 ML IV ×2 (09:50→20:31)
[2025-01-01] MEDS: THIAMINE 100 MG TABLET PO (09:50)
[2025-01-01] MEDS: FUROSEMIDE 40 MG TABLET PO (09:50)
[2025-01-01] MEDS: OXYCODONE IR 5 MG TABLET PO ×3 (09:55→20:29)
[2025-01-01] MEDS: hydrOXYzine HCL 25 MG TABLET PO ×3 (09:55→20:30)
--- NOTE | 2025-01-01 13:41 | P.PN_ITS ---
Subjective Subjective Date Patient Seen: 01/01/25 Time Patient Seen: 09:25 Interval history: Narrative: This is a 49-year-old male with alcoholism, previous alcohol withdrawal syndrome, right foot neuropathic ulcer with osteomyelitis, hepatosplenomegaly, portal hypertension, peripheral neuropathy and hypertension who presents with alcohol withdrawal and continued right foot cellulitis/osteomyelitis. He was here for 5 days in October and then discharged with a plan to complete 2 weeks of empiric ceftriaxone for the osteomyelitis, which would have ended on December 06. He had returned to the ED once since then stating that he was not comfortable giving himself the antibiotic so it is unclear whether he ever finished it. He says that his PICC line was caught on something and came out about 2 days ago. He really can not give any other history other than needing a new plan for treatment and wanting to stop drinking. He is speaking very slowly and appears to be encephalopathic. He has very diminished recall ability. He does not report any fevers or foot pain. He does have dense neuropathic changes in his feet, likely related to alcohol use and so has very little feeling. He also has a recent CT scan showing hepatosplenomegaly and portal hypertension so likely has end-stage liver disease. An ammonia level is pending. A repeat MRI shows continued osteomyelitis of the right 5th metatarsal at the MTP joint. Orthopedics will be consulted. The patient has been very clear that he does not wish to have amputation treatment and would ?rather .? His hemoglobin remains suppressed and unchanged at 8.7 with a bilirubin of 2.0. The admitting alcohol level is 258. He has a distinctive alcoholic odor to his breath. Interval history: The patient states that his pain is adequately controlled. Continues on IV antibiotics. He admits a history of alcohol use and noncompliance might impair a discharge plan for outpatient therapy. Exam Vital Signs (past 8 hours): - 01/01/25 08:00 Temperature 98.7 F Pulse Rate 87 Respiratory Rate 12 Blood Pressure 123/79 Pulse Oximetry 98 Oxygen Flow Rate 0 Fraction of Inspired Oxygen 24 SaO2/FiO2 Ratio 383 Oxygen Delivery Method Room Air Oxygen Flow Rate 0 Narrative Exam Narrative: NAD, alert and oriented. Fluent speech. Lungs are clear, normal rate and effort. Heart is regular, no murmur gallop or rub. Abdomen is soft, non distended. Extremities are free of edema. Right foot is is notable for a right 5th lateral MTP area of mild erythema without discharge or fluctuance. Objective Labs 12/31/24 04:02 12/31/24 04:02 [facility] Medical History Acne (Unknown) Alcohol abuse (~2017) Decreased libido Erectile dysfunction Essential hypertension (09/12/16) Foot osteomyelitis, right Hepatosplenomegaly Hepatosplenomegaly Hypertension (2004) Low back pain (Unknown) Neuropathic foot ulcer Polyneuropathy (Unknown) Portal hypertension Surgical History H/O surgical amputation of finger Hx of cholecystectomy (2001) Family History Grandmother Mental health problem Grandfather Cancer Grandmother Cancer Mother History of back problems Father Amputation leg, bilat Social History household members: spouse and family Smoking Status: Never smoker Tobacco: How many years used: 1 Smokeless tobacco user: chewing tobacco (many, many years) alcohol intake: current substance use type: does not use Assessment & Plan Assessment & Plan narrative: 1. Right foot neuropathic ulcer with osteomyelitis, present on admission and active. He declines any surgical intervention. ESBL E coli growing from cultures. After another conversation previously, he is amenable to going to a shelter facility. We are presently awaiting a private room as he has ESBL E coli and will need contact precautions. Also will require authorization from [employer]. Continue current antibiotics. - discussed with infectious disease with outpatient referral sent. He requires 4-6 weeks of IV antibiotic with carbapenem. - patient has been denied from SNFs due to substance use history, also no swing bed available. - infectious disease provider not willing to follow as outpatient if plan is for outpatient infusion center or home infusion given patient. - will likely need to keep until next week and re-attempt swing bed. 2. Alcohol dependence with withdrawal, now resolved -Patient was treated for alcohol withdrawal earlier this hospital stay, now resolved. 3. Scleral icterus, present on admission and improving. -Overall, his LFTs are normalizing. 4. Hepatic encephalopathy, present on admission and resolved. -He was initiated on lactulose this admission for an ammonia of 62. He has evidence of portal hypertension as well as hepatosplenomegaly. We discussed abstinence from alcohol could still result in resolution of most of his liver abnormalities. -He reported >5 BM per day on 20 mg of lactulose daily, reduced to 10 mg today. Titrate to 2-3 per day. 5. Polyneuropathy, present on admission and active. Continue pregabalin. Increased dose from 75 mg t.i.d. to 100 mg t.i.d. 12/30/2024. He is also receiving as needed oxycodone. Code status Full Prophylaxis On Lovenox Disposition Unclear as discussed above, possibly swing bed next week. Compliance and substance abuse issues remain a barrier to discharge. 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
--- NOTE | 2025-01-01 14:25 | PT.IPTN ---
Current Diagnoses Alcohol dependence with withdrawal, unspecified (12/20/24) Osteomyelitis, unspecified (12/20/24) Physical Therapy Treatment Note M2 PT-IP Current Condition Start: 12/29/24 11:28 Freq: NEEDED Status: Active Protocol: Document 12/30/24 11:08 SP (Rec: 12/30/24 12:36 SP [id number]) Physical Therapy Current Condition Current Condition Evaluation Date 12/29/24 Treatment Diagnosis R 5th toe osteomyelitis; ETOH; difficulty in walking Onset Date 12/20/24 M3 PT-IP Subjective Start: 12/29/24 11:28 Freq: NEEDED Status: Active Protocol: Document 01/01/25 14:25 AB (Rec: 01/01/25 17:09 AB [id number]) Subjective Physical Therapy Visit Type Type Treatment Note Visit Start Time 14:25 Visit Stop Time 14:50 Number of LINE PREP COOK Visits 0 Physical Therapy Visit Comments Patient Comments agreeable to do PT Therapy Pain Assessment Pain When Pain Assessed At Rest M4 PT-IP Mobility and Gait Start: 12/29/24 11:28 Freq: NEEDED Status: Active Protocol: Document 01/01/25 14:25 AB (Rec: 01/01/25 17:09 AB [id number]) PT-Bed Mobility Assessment Supine to Sit Supine to Sit Independent Sit to Supine Sit to Supine Independent PT-Transfer Assessment Sit to and From Stand Sit to and from Stand Standby Assistance,1 Person Assistance,Use of Upper Extremities Equipment Transfer Assistive Device Gait Belt,Front Wheeled Walker Orthotic/Prosthetic Devices or Brace: No Comments Mobility Comments pt in bed and agreed to do PT. mod I for supine to sit. pt was able to put his socks on. sit to stand SBA and ambulated in the hallway using FWW SBA to CGA ~ 225 ft. pt sat and rested. agreed to do stairs. ambulated towards stairs using fWW CGA and cues for safety. completed up.down steps using L rail ascending, needed CGA for ascending but requiring min A for descending steps. increase tremors noted after doing steps. pt ambulated back to room using FWW CGA. pt went back to bed. positioned in bed. Mod I for sit to supine. call light and table placed within reach. Gait Assessment Gait Gait Assistance Required: Standby Assistance,Contact Guard Assist Distance (Feet) 225 Able to Maintain Weight Bearing Status Yes During Gait Assistive Devices Assistive Device Gait Belt,Front Wheeled Walker Orthotic/Prosthetic Devices or Brace: No Factors Limiting Gait Function Factors Limiting Gait Function Decreased Activity Tolerance, Limited Range of Motion,Pain, Poor Balance,Poor Safety Awareness Stair Climbing Assessment Evaluation Level of Assist On Stairs Contact Guard Assistance, Minimal Assistance,1 Person Assistance Devices Stair Climbing Assistive Devices Left Railing Technique/Endurance Stair Climbing Direction Ascend and Descend Stair Climbing Technique Step to Step Number of Steps Climbed 3 Stair Climbing Set # Repetitions (reps) 1 M5 PT-IP Objective Assessments Start: 12/29/24 11:28 Freq: NEEDED Status: Active Protocol: Document 12/29/24 10:25 AB (Rec: 12/29/24 11:49 AB [id number]) Orientation Orientation/Cognition Level of Alertness Alert Orientation Name,Place,Situation Language Function Ability No Deficits Noted Safety Awareness Decreased Safety Awareness Memory Description No Deficits Noted Gross Range of Motion Lower Extremity ROM Assessment Within Functional Limits Strength Lower Extremity Strength Assessment Within Functional Limits Sensation Assessment Sensation Gross Sensation Right UE Impaired,Right LE Impaired,Left LE Impaired Sensation Description Numbness Other Assessments Other Other Assessments (+) LE tremors during ambulation M6 PT-IP Treatment Start: 12/29/24 11:28 Freq: NEEDED Status: Active Protocol: Document 01/01/25 14:25 AB (Rec: 01/01/25 17:09 AB [id number]) Physical Therapy Treatment Education Education Provided Safety M7 PT-IP Assessment and Plan Start: 12/29/24 11:28 Freq: NEEDED Status: Active Protocol: Document 01/01/25 14:25 AB (Rec: 01/01/25 17:09 AB [id number]) PT Summary Assessment and Plan Potential Rehabilitation Potential Fair Summary Impairments Pain,ROM,Strength,Balance, Coordination,Sensation,Tone, Cognition,Bed Mobility, Transfers,Gait,Activity Tolerance Progress Towards Goals Slow Progress due to Medical Issues,Slow Progress due to Activity Tolerance Assessment Summary pt improving slowly with mobility using FWW requiring SBA to CGA; requiring more CGA midway with mobility due to unsteadiness. pt will require assistance at home and currently does not has anybody to assist him. will continue to assess progress. Goals Transfer Goal Independent,Front Wheeled Walker Gait Goal Independent,Front Wheel Walker Gait Distance 200 Other Goals improve transfers, ambulation using LRAD/without AD 250 ft mod I up/down 5 steps L rail ascending SBA Days to Meet Goals 10 Frequency of Treatment Frequency Of Treatment Once a Day Treatment Plan Physical Therapy Treatment Plan Bed Mobility Training,Transfer Training,Gait Training, Therapeutic Exercise,Balance Retraining,Discharge Planning, Hot or Cold Pack,Neuromuscular Re-ed,Coordination Retraining ,Manual Therapy Other Recommendations and Next Treatment stair climbing Focus Precautions Other Precautions falls Recommendations To Nursing Amount of Assist Needed 1 Person Assist Discharge Recommendations PT Discharge Recommendations Home with Assistance,Home Health,SNF Rehab,Home vs SNF Transportation Needs at Discharge Private Vehicle,Wheelchair/ Cabulance
[2025-01-01 16:00] VITALS: BP 127/75; PULSE 81; RESP 16; TEMP 37; O2SAT 100
[2025-01-01] MEDS: CALCIUM CARBONATE 500 MG TAB PO (18:12)
[2025-01-01 20:00] VITALS: BP 128/79; PULSE 89; RESP 16; TEMP 37.3; O2SAT 100
[2025-01-02] MEDS: hydrOXYzine HCL 25 MG TABLET PO ×2 (00:28→19:56)
[2025-01-02] MEDS: OXYCODONE IR 5 MG TABLET PO ×3 (00:28→19:56)
[2025-01-02] MEDS: CALCIUM CARBONATE 500 MG TAB PO ×3 (01:39→20:15)
--- NOTE | 2025-01-02 03:42 | PC.NURSE ---
0045 Right foot wound drsg loose with scant drainage. Area cleaned with NS, Allevyn drsg applied, covered with soft kerlex and netting. Two large bandaids to abarasions on left mckeon loose with scant drainage, area cleaned and new bandaids applied.
[2025-01-02 04:00] VITALS: BP 106/67; PULSE 85; RESP 16; TEMP 36.9; O2SAT 100
[2025-01-02 08:03] VITALS: BP 123/78; PULSE 86; RESP 19; TEMP 36.7; O2SAT 96
[2025-01-02] MEDS: MAGNESIUM OXIDE 400 MG TABLET PO ×2 (08:16→19:57)
[2025-01-02] MEDS: SPIRONOLACTONE 25 MG TABLET PO (08:16)
[2025-01-02] MEDS: THIAMINE 100 MG TABLET PO (08:16)
[2025-01-02] MEDS: FUROSEMIDE 40 MG TABLET PO (08:16)
[2025-01-02] MEDS: POTASSIUM CHLORIDE 10 MEQ TAB PO (08:16)
[2025-01-02] MEDS: PREGABALIN 50 MG CAPSULE 100 MG PO ×3 (08:16→19:57)
[2025-01-02] MEDS: LACTULOSE 20 GM/30 ML SOLUTION 10 GM PO (08:17)
[2025-01-02] MEDS: NICOTINE 21 MG PATCH TOP (08:17)
[2025-01-02] MEDS: SODIUM CHLORIDE 0.9% FLUSH 10 ML IV (08:18)
[2025-01-02] MEDS: ERTAPENEM 1 GM in SODIUM CHLORIDE 0.9% 100 ML IV (09:10)
--- NOTE | 2025-01-02 09:18 | PM.PN.IH.1 ---
Subjective Subjective Date Patient Seen: 01/02/25 Time Patient Seen: 08:30 Interval history: Narrative: This is a 49-year-old male with alcoholism, previous alcohol withdrawal syndrome, right foot neuropathic ulcer with osteomyelitis, hepatosplenomegaly, portal hypertension, peripheral neuropathy and hypertension who presents with alcohol withdrawal and continued right foot cellulitis/osteomyelitis. He was here for 5 days in October and then discharged with a plan to complete 2 weeks of empiric ceftriaxone for the osteomyelitis, which would have ended on December 06. He had returned to the ED once since then stating that he was not comfortable giving himself the antibiotic so it is unclear whether he ever finished it. He says that his PICC line was caught on something and came out about 2 days ago. He really can not give any other history other than needing a new plan for treatment and wanting to stop drinking. He is speaking very slowly and appears to be encephalopathic. He has very diminished recall ability. He does not report any fevers or foot pain. He does have dense neuropathic changes in his feet, likely related to alcohol use and so has very little feeling. He also has a recent CT scan showing hepatosplenomegaly and portal hypertension so likely has end-stage liver disease. An ammonia level is pending. A repeat MRI shows continued osteomyelitis of the right 5th metatarsal at the MTP joint. Orthopedics will be consulted. The patient has been very clear that he does not wish to have amputation treatment and would ?rather .? His hemoglobin remains suppressed and unchanged at 8.7 with a bilirubin of 2.0. The admitting alcohol level is 258. He has a distinctive alcoholic odor to his breath. Interval history: The patient states that his pain is adequately controlled. He continues on IV antibiotics. He admits a history of alcohol use and noncompliance might impair a discharge plan for outpatient therapy, but notes that he is interested in alcohol rehab dilatation and his is interested in alcohol rehabilitation as well. He lives with his and her mother who has early dementia and can not be left home unsupervised. Exam Vital Signs (past 8 hours): - 01/02/25 04:00 01/02/25 08:03 Temperature 98.4 F 98.1 F Pulse Rate 85 86 Respiratory Rate 16 19 Blood Pressure 106/67 123/78 Pulse Oximetry 100 96 Oxygen Flow Rate 0 0 Fraction of Inspired Oxygen 24 SaO2/FiO2 Ratio 383 Oxygen Delivery Method Room Air Oxygen Flow Rate 0 Narrative Exam Narrative: NAD, alert and oriented. Fluent speech. Lungs are clear, normal rate and effort. Heart is regular, no murmur gallop or rub. Abdomen is soft, non distended. Extremities are free of edema. Right foot is is notable for a right 5th lateral MTP area of mild erythema without discharge or fluctuance. Objective Labs 12/31/24 04:02 12/31/24 04:02 [facility] Medical History Acne (Unknown) Alcohol abuse (~2017) Decreased libido Erectile dysfunction Essential hypertension (09/12/16) Foot osteomyelitis, right Hepatosplenomegaly Hepatosplenomegaly Hypertension (2004) Low back pain (Unknown) Neuropathic foot ulcer Polyneuropathy (Unknown) Portal hypertension Surgical History H/O surgical amputation of finger Hx of cholecystectomy (2001) Family History Grandmother Mental health problem Grandfather Cancer Grandmother Cancer Mother History of back problems Father Amputation leg, bilat Social History household members: spouse and family Smoking Status: Never smoker Tobacco: How many years used: 1 Smokeless tobacco user: chewing tobacco (many, many years) alcohol intake: current substance use type: does not use Assessment & Plan Assessment & Plan narrative: 1. Right foot neuropathic ulcer with osteomyelitis, present on admission and active. He declines any surgical intervention. ESBL E coli growing from wound cultures 12/20/2024, with serial negative blood cultures. After another conversation previously, he is amenable to going to a long-term facility. We are presently awaiting a private room as he has ESBL E coli and will need contact precautions. Also will require authorization from [employer]. Continue current antibiotics. - discussed with infectious disease with outpatient referral sent. He requires 4-6 weeks of IV antibiotic with carbapenem. - patient has been denied from SNFs due to substance use history, also no swing bed available. - infectious disease provider not willing to follow as outpatient if plan is for outpatient infusion center or home infusion given patient. - will likely need to keep until next week and re-attempt swing bed. - consider outpatient home antibiotics he is outpatient infusion service is comfortable with this, given history of alcohol and noncompliance 2. Alcohol dependence with withdrawal, now resolved -Patient was treated for alcohol withdrawal earlier this hospital stay, now resolved. -explore alcohol rehab options. 3. Scleral icterus, present on admission and improving. -Overall, his LFTs are normalizing. 4. Hepatic encephalopathy, present on admission and resolved. -He was initiated on lactulose this admission for an ammonia of 62. He has evidence of portal hypertension as well as hepatosplenomegaly. We discussed abstinence from alcohol could still result in resolution of most of his liver abnormalities. -He reported >5 BM per day on 20 mg of lactulose daily, reduced to 10 mg today. Titrate to 2-3 per day. 5. Polyneuropathy, present on admission and active. Continue pregabalin. Increased dose from 75 mg t.i.d. to 100 mg t.i.d. 12/30/2024. He is also receiving as needed oxycodone. Code status Full Prophylaxis On Lovenox Disposition Unclear as discussed above, possibly swing bed next week. Compliance and substance abuse issues remain a barrier to discharge. 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
--- NOTE | 2025-01-02 11:34 | PT.IPTN ---
Current Diagnoses Alcohol dependence with withdrawal, unspecified (12/20/24) Osteomyelitis, unspecified (12/20/24) Physical Therapy Treatment Note M2 PT-IP Current Condition Start: 12/29/24 11:28 Freq: NEEDED Status: Active Protocol: Document 12/30/24 11:08 SP (Rec: 12/30/24 12:36 SP [id number]) Physical Therapy Current Condition Current Condition Evaluation Date 12/29/24 Treatment Diagnosis R 5th toe osteomyelitis; ETOH; difficulty in walking Onset Date 12/20/24 M3 PT-IP Subjective Start: 12/29/24 11:28 Freq: NEEDED Status: Active Protocol: Document 01/02/25 10:26 MB (Rec: 01/02/25 11:33 MB [id number]) Subjective Physical Therapy Visit Type Type Treatment Note Visit Start Time 10:26 Visit Stop Time 11:19 Number of ANIMAL TRAINER SUPERVISOR Visits 0 Physical Therapy Visit Comments Patient Comments Pt is agreeable to education about post-op shoe, training and PT. Therapy Pain Assessment Pain When Pain Assessed At Rest Pain Present Pain Present Pain Reported Location Right Foot Scale Used Not rated M4 PT-IP Mobility and Gait Start: 12/29/24 11:28 Freq: NEEDED Status: Active Protocol: Document 01/02/25 10:26 MB (Rec: 01/02/25 11:33 MB [id number]) PT-Bed Mobility Assessment Supine to Sit Supine to Sit Independent Sit to Supine Sit to Supine Independent Scooting Scooting to Edge of Bed Standby Assistance PT-Transfer Assessment Sit to and From Stand Sit to and from Stand Minimal Assistance,1 Person Assistance,Use of Upper Extremities Equipment Transfer Assistive Device Gait Belt,Front Wheeled Walker Orthotic/Prosthetic Devices or Brace: Yes Transfers Transfer Destination Chair Transfer Technique Ambulation Transfer Ability Level of Assist Minimal Assistance,1 Person Assistance,Use of Upper Extremities Comments Mobility Comments Floor in front of bed and recliner on window side is very slippery and nsg and EVS have already tried to address. Pt requires min A and cues to lean over feet and cues to push up from bed or reach for chair to prevent slipping feet . CGA for transfers at toilet and I with hygiene. Gait Assessment Gait Gait Assistance Required: Contact Guard Assist,Minimum Assistance,1 Person Assist Distance (Feet) 75 Able to Maintain Weight Bearing Status Yes During Gait Assistive Devices Assistive Device Gait Belt,Front Wheeled Walker Orthotic/Prosthetic Devices or Brace: Yes Gait Deviations General Gait Pattern Ataxic,Decreased Stride Length ,Flexed Trunk,Step-to Gait, Wide Based Gait Factors Limiting Gait Function Factors Limiting Gait Function Decreased Activity Tolerance, Decreased Sensation, Incoordination,Poor Balance, Poor Safety Awareness Comments Gait Comments 75'x2 and 20'x1 today with right forefoot offloading shoe , RW and cues, step-to gait taught with increased Lisa angle on right foot. Cues to slow down. Pt's gait and movement is very ataxic with all WB and activity and this influences balance. He reports his walker at home is broken and he will need a new one. Stair Climbing Assessment Evaluation Level of Assist On Stairs Contact Guard Assistance,1 Person Assistance Devices Stair Climbing Assistive Devices Left Railing Technique/Endurance Stair Climbing Direction Ascend and Descend Stair Climbing Technique Step to Step Number of Steps Climbed 3 Stair Climbing Set # Repetitions (reps) 1 Comments Stair Climbing Comments Cues for foot flat right foot in shoe and to step up with left foot first and down with right foot first and this is challenging given only left rail ascend at home but can perform with both hands on rail and angling body PT-Balance Assessment Sitting Balance and Reactions Static Sitting Balance Ability Good Dynamic Sitting Balance Ability Good Standing Balance and Reactions Static Standing Balance Ability Fair Dynamic Standing Balance Ability Fair Device Used RW, right post-op shoe M5 PT-IP Objective Assessments Start: 12/29/24 11:28 Freq: NEEDED Status: Active Protocol: Document 12/29/24 10:25 AB (Rec: 12/29/24 11:49 AB [id number]) Orientation Orientation/Cognition Level of Alertness Alert Orientation Name,Place,Situation Language Function Ability No Deficits Noted Safety Awareness Decreased Safety Awareness Memory Description No Deficits Noted Gross Range of Motion Lower Extremity ROM Assessment Within Functional Limits Strength Lower Extremity Strength Assessment Within Functional Limits Sensation Assessment Sensation Gross Sensation Right UE Impaired,Right LE Impaired,Left LE Impaired Sensation Description Numbness Other Assessments Other Other Assessments (+) LE tremors during ambulation M6 PT-IP Treatment Start: 12/29/24 11:28 Freq: NEEDED Status: Active Protocol: Document 01/02/25 10:26 MB (Rec: 01/02/25 11:33 MB [id number]) Physical Therapy Treatment Education Education Provided Safety Other Treatments Other Treatment Performed Ed in benefits, donning and wear of forefoot offloading shoe M7 PT-IP Assessment and Plan Start: 12/29/24 11:28 Freq: NEEDED Status: Active Protocol: Document 01/02/25 10:26 MB (Rec: 01/02/25 11:33 MB [id number]) PT Summary Assessment and Plan Potential Rehabilitation Potential Fair Status of Condition at Evaluation Evolving Summary Impairments Pain,ROM,Strength,Balance, Coordination,Sensation, Cognition,Bed Mobility, Transfers,Gait,Activity Tolerance Progress Towards Goals Slow Progress due to Medical Issues,Slow Progress due to Activity Tolerance Assessment Summary Pt with right fifth toe osteo being treated and so PT speaks with Dr. Smith in rounds and SW wrote order for shoe. PT obtains shoe and teaches use and gait pattern with it today . Recommend limiting gait distance given osteo in foot. Pt's gait is very neurological in appearance with ataxia through B LEs with gait. This decreases balance and increases fall risk. Con't to recommend SNF at d/c. Pt states his and MIL at home are quite debilitated as well and cannot assist him very well. Goals Transfer Goal Independent,Front Wheeled Walker Gait Goal Independent,Front Wheel Walker Gait Distance 75 Other Goals Pt with forefoot offloading shoe and recommend ongoing AD use at d/c up/down 5 steps L rail ascending SBA Days to Meet Goals 5 Frequency of Treatment Frequency Of Treatment Once a Day Other frequency +1 Treatment Plan Physical Therapy Treatment Plan Transfer Training,Gait Training,Therapeutic Exercise, Balance Retraining,Discharge Planning,Coordination Retraining Precautions Other Precautions Falls, right forefoot offloading shoe Weight Bearing Status Allowed Weight Bearing Amount (enter % No WB restrictions, how has or #) (%) forefoot offloading shoe for right Recommendations To Nursing Amount of Assist Needed 1 Person Assist Discharge Recommendations PT Discharge Recommendations SNF Rehab Transportation Needs at Discharge Private Vehicle
[2025-01-02] MEDS: LORazepam 1 MG TABLET PO (15:09)
[2025-01-02 20:00] VITALS: BP 115/69; PULSE 103; RESP 20; TEMP 37.4; O2SAT 100
[2025-01-03 04:00] VITALS: BP 115/71; PULSE 87; RESP 20; TEMP 37; O2SAT 98
[2025-01-03 07:49] VITALS: BP 107/67; PULSE 87; RESP 19; TEMP 37.1; O2SAT 98
[2025-01-03] MEDS: PREGABALIN 50 MG CAPSULE 100 MG PO ×3 (08:45→20:26)
[2025-01-03] MEDS: FUROSEMIDE 40 MG TABLET PO (08:45)
[2025-01-03] MEDS: OXYCODONE IR 5 MG TABLET PO ×2 (08:46→20:25)
[2025-01-03] MEDS: POTASSIUM CHLORIDE 10 MEQ TAB PO (08:46)
[2025-01-03] MEDS: THIAMINE 100 MG TABLET PO (08:47)
[2025-01-03] MEDS: MAGNESIUM OXIDE 400 MG TABLET PO ×2 (08:47→20:26)
[2025-01-03] MEDS: SPIRONOLACTONE 25 MG TABLET PO (08:47)
[2025-01-03] MEDS: LACTULOSE 20 GM/30 ML SOLUTION 10 GM PO (08:48)
[2025-01-03] MEDS: SODIUM CHLORIDE 0.9% FLUSH 10 ML IV (08:48)
[2025-01-03] MEDS: NICOTINE 21 MG PATCH TOP (08:48)
[2025-01-03] MEDS: ERTAPENEM 1 GM in SODIUM CHLORIDE 0.9% 100 ML IV (09:05)
--- NOTE | 2025-01-03 14:14 | PT-IP ANOTE ---
PT checks on pt who states that he is waiting for MGMT CONSULTANT to assist with bath. He has been getting up with assistance, post-op shoe and RW. Con't PT efforts.
--- NOTE | 2025-01-03 16:03 | CM.DPC ---
DCP Outpt IV abx cont: Per [facility], they are not contracted with [facility] and cannot accept. Per [facility], they have norovirus in the building and likely would be reimbursed the same as SNF and likely won't be able to accept. Per , was able to discuss pt situation with his PCP [facility] and Dr. Cutler has agreed to follow the pt in the outpt setting for outpt infusion of Ertapenem 1g Q24 for the remainder of his course of tx. SW met bedside with pt and updated on the barriers to securing placement at SNF or Swing beds due to his insurance and reimbursement and plan of discharge home with outpt IV-Abx. Discussed again Home Infusion vs outpt clinic and pt preference is [facility] once a day at d/c. Pt aware he may d/c tomorrow or Fri once outpt infusion set up. Pt agreeable. SW left a msg for [facility] on plan of d/c with the Ertapenem to move forward with getting the pt on the schedule as she had confirmed last week that no prior auth is needed for pt with the Ertapenem. Plan: SW to follow for confirmation that [facility] has the orders they need to get pt on their schedule for outpt IV Abx Ertapenem and Dr. Cutler to follow. Maranda Cornejo, SLAB INSTALLER
[2025-01-03 16:13] VITALS: BP 117/76; PULSE 94; RESP 19; TEMP 37.1; O2SAT 99
--- NOTE | 2025-01-03 17:33 | PC.NURSE ---
Dressing removed, wound cleaned with saline, and new dsg applied to wound and covered with conform. Drainage on removed dsg is scant and pink-brown in color. Wound bed is clean and pink. Pt tolerated well.
--- NOTE | 2025-01-03 18:41 | P.PN_ITS ---
Subjective Subjective Date Patient Seen: 01/02/25 Time Patient Seen: 08:30 Interval history: Narrative: This is a 49-year-old male with alcoholism, previous alcohol withdrawal syndrome, right foot neuropathic ulcer with osteomyelitis, hepatosplenomegaly, portal hypertension, peripheral neuropathy and hypertension who presents with alcohol withdrawal and continued right foot cellulitis/osteomyelitis. He was here for 5 days in October and then discharged with a plan to complete 2 weeks of empiric ceftriaxone for the osteomyelitis, which would have ended on December 06. He had returned to the ED once since then stating that he was not comfortable giving himself the antibiotic so it is unclear whether he ever finished it. He says that his PICC line was caught on something and came out about 2 days ago. He really can not give any other history other than needing a new plan for treatment and wanting to stop drinking. He is speaking very slowly and appears to be encephalopathic. He has very diminished recall ability. He does not report any fevers or foot pain. He does have dense neuropathic changes in his feet, likely related to alcohol use and so has very little feeling. He also has a recent CT scan showing hepatosplenomegaly and portal hypertension so likely has end-stage liver disease. An ammonia level is pending. A repeat MRI shows continued osteomyelitis of the right 5th metatarsal at the MTP joint. Orthopedics will be consulted. The patient has been very clear that he does not wish to have amputation treatment and would ?rather .? His hemoglobin remains suppressed and unchanged at 8.7 with a bilirubin of 2.0. The admitting alcohol level is 258. He has a distinctive alcoholic odor to his breath. Interval history: The patient states that his pain is adequately controlled. He continues on IV antibiotics. He admits a history of alcohol use and noncompliance might impair a discharge plan for outpatient therapy, but notes that he is interested in alcohol rehab dilatation and his is interested in alcohol rehabilitation as well. He lives with his and her mother who has early dementia and can not be left home unsupervised. PCP did report that he would follow patient. Exam Vital Signs (past 8 hours): - 01/03/25 16:13 Temperature 98.7 F Pulse Rate 94 H Respiratory Rate 19 Blood Pressure 117/76 Pulse Oximetry 99 Oxygen Flow Rate 0 Fraction of Inspired Oxygen 24 SaO2/FiO2 Ratio 383 Oxygen Delivery Method Room Air Oxygen Flow Rate 0 Narrative Exam Narrative: NAD, alert and oriented. Fluent speech. Lungs are clear, normal rate and effort. Heart is regular, no murmur gallop or rub. Abdomen is soft, non distended. Extremities are free of edema. Right foot is is notable for a right 5th lateral MTP area of mild erythema without discharge or fluctuance. Objective Labs 12/31/24 04:02 12/31/24 04:02 [facility] Medical History Acne (Unknown) Alcohol abuse (~2017) Decreased libido Erectile dysfunction Essential hypertension (09/12/16) Foot osteomyelitis, right Hepatosplenomegaly Hepatosplenomegaly Hypertension (2004) Low back pain (Unknown) Neuropathic foot ulcer Polyneuropathy (Unknown) Portal hypertension Surgical History H/O surgical amputation of finger Hx of cholecystectomy (2001) Family History Grandmother Mental health problem Grandfather Cancer Grandmother Cancer Mother History of back problems Father Amputation leg, bilat Social History household members: spouse and family Smoking Status: Never smoker Tobacco: How many years used: 1 Smokeless tobacco user: chewing tobacco (many, many years) alcohol intake: current substance use type: does not use Assessment & Plan Assessment & Plan narrative: 1. Right foot neuropathic ulcer with osteomyelitis, present on admission and active. He declines any surgical intervention. ESBL E coli growing from wound cultures 12/20/2024, with serial negative blood cultures. After another conversation previously, he is amenable to going to a [place] [facility] facility. We are presently awaiting a private room as he has ESBL E coli and will need contact precautions. Also will require authorization from [employer]. Continue current antibiotics. - discussed with infectious disease with outpatient referral sent. He requires 4-6 weeks of IV antibiotic with carbapenem. She is unwilling to follow with home infusion or outpatient infusion, PCP notes he will follow patient. Needs labs twice weekly including CBC,CMP,ESR,CRP, and CK. With particular focus on his LFTs. - patient has been denied from SNFs due to substance use history, also no swing bed available. - infectious disease provider not willing to follow as outpatient if plan is for outpatient infusion center or home infusion given patient. - will likely need to keep until next week and re-attempt swing bed. - consider outpatient home antibiotics he is outpatient infusion service is comfortable with this, given history of alcohol and noncompliance 2. Alcohol dependence with withdrawal, now resolved -Patient was treated for alcohol withdrawal earlier this hospital stay, now resolved. -explore alcohol rehab options. 3. Scleral icterus, present on admission and improving. -Overall, his LFTs are normalizing. 4. Hepatic encephalopathy, present on admission and resolved. -He was initiated on lactulose this admission for an ammonia of 62. He has evidence of portal hypertension as well as hepatosplenomegaly. We discussed abstinence from alcohol could still result in resolution of most of his liver abnormalities. -He reported >5 BM per day on 20 mg of lactulose daily, reduced to 10 mg today. Titrate to 2-3 per day. 5. Polyneuropathy, present on admission and active. Continue pregabalin. Increased dose from 75 mg t.i.d. to 100 mg t.i.d. 12/30/2024. He is also receiving as needed oxycodone. Code status Full Prophylaxis On Lovenox Disposition Likely suboptimal plan of outpatient therapy, either home infusion or outpatient infusion. Time-Based Coding :: [TOTAL MINUTES] spent with patient and on the chart (including review of chart, obtaining history, exam, reviewing outside data, placing orders, documenting exam and treatment plan, and counseling patient) on [DATE]. Quality VTE Deep Vein Thrombosis/Pulmonary Embolism Present on Admission: No
[2025-01-03 20:00] VITALS: BP 125/76; PULSE 97; RESP 16; TEMP 37.2; O2SAT 100
[2025-01-03] MEDS: hydrOXYzine HCL 25 MG TABLET PO (20:26)
[2025-01-03] MEDS: CALCIUM CARBONATE 500 MG TAB PO (21:19)
[2025-01-04 04:00] VITALS: BP 119/71; PULSE 82; RESP 20; TEMP 37.2; O2SAT 95
[2025-01-04 04:23] LABS: Add Manual Diff / Slide Review NO; Basophils Absolute Auto 100 /uL (0-100); Basophils Percent Auto 1.1 % (0-2); Eosinophils Absolute Auto 200 /uL (0-450); Eosinophils Percent Auto 3.9 % (2-4); Hematocrit 29.7 % (41-53); Hemoglobin 10.3 g/dL (13.5-17.5); Lymphocytes Absolute Auto 1600 /uL (1100-4500); Lymphocytes Percent Auto 31.2 % (25-40); Mean Corpuscular HGB Conc 34.5 % (30-36); Mean Corpuscular Hemoglobin 28.1 PG (26-34); Mean Corpuscular Volume 81.4 fL (80-100); Monocytes Absolute Auto 600 /uL (0-900); Monocytes Percent Auto 10.9 % (3-14); Neutrophils Absolute Auto 2700 /uL (1500-7000); Neutrophils Percent Auto 52.9 % (50-75); Platelet Count 90 X10^3/uL (150-400); Red Blood Cell Count 3.65 X10^6/uL (4.5-5.9); Red Cell Distribution Width 19.5 % (11.6-14.8); White Blood Cell Count 5.2 X10^3/uL (4.5-11.0)
[2025-01-04 04:33] LABS: Alanine Aminotransferase 29 IU/L (<50); Albumin 4.2 g/dL (3.5-5.0); Alkaline Phosphatase 102 U/L (38-126); Aspartate Aminotransferase 60 IU/L (17-59); BUN Creatinine Ratio 20.2 (6-22); Blood Urea Nitrogen 19 mg/dL (9-20); Calcium 9.9 mg/dL (8.4-10.2); Carbon Dioxide 21 mmol/L (22-32); Chloride 103 mmol/L (98-107); Estimated Glomerular Filt Rate > 60 mL/min (>60); Globulin 4.1 g/dL (1.7-4.1); Glucose 105 mg/dL (70-100); HEMOLYSIS 22 (0-50); Magnesium 1.7 mg/dL (1.6-2.3); Potassium 4.1 mmol/L (3.4-5.1); Sodium 135 mmol/L (137-145); Total Protein 8.3 g/dL (6.3-8.2)
[2025-01-04 07:45] VITALS: BP 123/76; PULSE 78; RESP 19; TEMP 37; O2SAT 98
[2025-01-04] MEDS: POTASSIUM CHLORIDE 10 MEQ TAB PO (08:03)
[2025-01-04] MEDS: SPIRONOLACTONE 25 MG TABLET PO (08:12)
[2025-01-04] MEDS: MAGNESIUM OXIDE 400 MG TABLET PO ×2 (08:12→20:57)
[2025-01-04] MEDS: OXYCODONE IR 5 MG TABLET PO ×3 (08:12→21:55)
[2025-01-04] MEDS: THIAMINE 100 MG TABLET PO (08:12)
[2025-01-04] MEDS: PREGABALIN 50 MG CAPSULE 100 MG PO ×3 (08:13→20:56)
[2025-01-04] MEDS: NICOTINE 21 MG PATCH TOP (08:13)
[2025-01-04] MEDS: hydrOXYzine HCL 25 MG TABLET PO ×3 (08:13→23:49)
[2025-01-04] MEDS: FUROSEMIDE 40 MG TABLET PO (08:13)
[2025-01-04] MEDS: SODIUM CHLORIDE 0.9% FLUSH 10 ML IV ×2 (08:14→20:57)
--- NOTE | 2025-01-04 08:28 | PT.IPTN ---
Current Diagnoses Alcohol dependence with withdrawal, unspecified (12/20/24) Osteomyelitis, unspecified (12/20/24) Physical Therapy Treatment Note M2 PT-IP Current Condition Start: 12/29/24 11:28 Freq: NEEDED Status: Active Protocol: Document 12/30/24 11:08 SP (Rec: 12/30/24 12:36 SP [id number]) Physical Therapy Current Condition Current Condition Evaluation Date 12/29/24 Treatment Diagnosis R 5th toe osteomyelitis; ETOH; difficulty in walking Onset Date 12/20/24 M3 PT-IP Subjective Start: 12/29/24 11:28 Freq: NEEDED Status: Active Protocol: Document 01/04/25 07:49 MB (Rec: 01/04/25 08:28 MB [id number]) Subjective Physical Therapy Visit Type Type Treatment Note Visit Start Time 07:49 Visit Stop Time 08:12 Number of WOOD PILER Visits 0 Physical Therapy Visit Comments Patient Comments Pt sleeping and awakens to PT voice and is agreeable to PT. Therapy Pain Assessment Pain When Pain Assessed At Rest Pain Present Pain Present Denied Pain M4 PT-IP Mobility and Gait Start: 12/29/24 11:28 Freq: NEEDED Status: Active Protocol: Document 01/04/25 07:49 MB (Rec: 01/04/25 08:28 MB [id number]) PT-Bed Mobility Assessment Supine to Sit Supine to Sit Independent Sit to Supine Sit to Supine Independent Scooting Scooting to Edge of Bed Independent PT-Transfer Assessment Sit to and From Stand Sit to and from Stand Minimal Assistance,1 Person Assistance,Use of Upper Extremities Equipment Transfer Assistive Device Gait Belt,Front Wheeled Walker Orthotic/Prosthetic Devices or Brace: Yes Transfers Transfer Destination Chair Transfer Technique Ambulation Transfer Ability Level of Assist Minimal Assistance,1 Person Assistance,Use of Upper Extremities Comments Mobility Comments Min A d/t floor slick and PT speaks with charge nurse today . PT cues pt to push up from the bed and PT blocks right surgical shoe so foot does not scoot. Cues to back up to chair with RW and to reach back for chair and left with chair alarm on and door open, needs in reach. Gait Assessment Gait Gait Assistance Required: Contact Guard Assist,1 Person Assist Distance (Feet) 75 Able to Maintain Weight Bearing Status Yes During Gait Assistive Devices Assistive Device Gait Belt,Front Wheeled Walker Orthotic/Prosthetic Devices or Brace: Yes Gait Deviations General Gait Pattern Ataxic,Decreased Stride Length ,Flexed Trunk,Step-to Gait, Wide Based Gait Factors Limiting Gait Function Factors Limiting Gait Function Decreased Activity Tolerance, Decreased Sensation, Incoordination,Poor Balance, Poor Safety Awareness Comments Gait Comments 75'x2 and gait is better today as far as ataxia and pt requires cues x2 to make sure he performs step-to gait to decrease WB through right foot and for safety Stair Climbing Assessment Evaluation Level of Assist On Stairs Contact Guard Assistance,1 Person Assistance Devices Stair Climbing Assistive Devices Left Railing Technique/Endurance Stair Climbing Direction Ascend and Descend Stair Climbing Technique Step to Step Number of Steps Climbed 3 Stair Climbing Set # Repetitions (reps) 1 Comments Stair Climbing Comments Cues for foot flat right foot in shoe and to step up with left foot first and down with right foot first and pt performs better today PT-Balance Assessment Sitting Balance and Reactions Static Sitting Balance Ability Good Dynamic Sitting Balance Ability Good Standing Balance and Reactions Static Standing Balance Ability Fair Dynamic Standing Balance Ability Fair Device Used RW, right post-op shoe M5 PT-IP Objective Assessments Start: 12/29/24 11:28 Freq: NEEDED Status: Active Protocol: Document 12/29/24 10:25 AB (Rec: 12/29/24 11:49 AB [id number]) Orientation Orientation/Cognition Level of Alertness Alert Orientation Name,Place,Situation Language Function Ability No Deficits Noted Safety Awareness Decreased Safety Awareness Memory Description No Deficits Noted Gross Range of Motion Lower Extremity ROM Assessment Within Functional Limits Strength Lower Extremity Strength Assessment Within Functional Limits Sensation Assessment Sensation Gross Sensation Right UE Impaired,Right LE Impaired,Left LE Impaired Sensation Description Numbness Other Assessments Other Other Assessments (+) LE tremors during ambulation M6 PT-IP Treatment Start: 12/29/24 11:28 Freq: NEEDED Status: Active Protocol: Document 01/04/25 07:49 MB (Rec: 01/04/25 08:28 MB [id number]) Physical Therapy Treatment Education Education Provided Safety Other Treatments Other Treatment Performed Re-ed in benefits, donning and wear of forefoot offloading shoe M7 PT-IP Assessment and Plan Start: 12/29/24 11:28 Freq: NEEDED Status: Active Protocol: Document 01/04/25 07:49 MB (Rec: 01/04/25 08:28 MB [id number]) PT Summary Assessment and Plan Potential Rehabilitation Potential Fair Status of Condition at Evaluation Evolving Summary Impairments Pain,ROM,Strength,Balance, Coordination,Sensation, Cognition,Bed Mobility, Transfers,Gait,Activity Tolerance Progress Towards Goals Progressing Toward Goals Assessment Summary Pt mobilizes better today. PT communicates with SW after treatment about pt's questions about wound care at d/c and PT also communicates with SW that pt will need a RW at d/c. Goals Transfer Goal Independent,Front Wheeled Walker Gait Goal Independent,Front Wheel Walker Gait Distance 75 Other Goals Pt with forefoot offloading shoe and recommend ongoing AD use at d/c up/down 5 steps L rail ascending SBA Days to Meet Goals 5 Frequency of Treatment Frequency Of Treatment Once a Day Other frequency +1 Treatment Plan Physical Therapy Treatment Plan Transfer Training,Gait Training,Therapeutic Exercise, Balance Retraining,Discharge Planning,Coordination Retraining Precautions Other Precautions Falls, right forefoot offloading shoe Weight Bearing Status Allowed Weight Bearing Amount (enter % No WB restrictions, how has or #) (%) forefoot offloading shoe for right Recommendations To Nursing Amount of Assist Needed 1 Person Assist Discharge Recommendations PT Discharge Recommendations Home with 23/06 Assist Available,Home Health,Home vs SNF Equipment Needed for Home Before Pt will need a RW for d/c Discharge Transportation Needs at Discharge Private Vehicle
[2025-01-04] MEDS: ERTAPENEM 1 GM in SODIUM CHLORIDE 0.9% 100 ML IV (10:16)
--- NOTE | 2025-01-04 12:45 | PM.PN.1 ---
Subjective Subjective Date Patient Seen: 01/02/25 Time Patient Seen: 08:30 Interval history: Interval history: The patient states that his pain is adequately controlled. No complaints or changes today. Setting up plan today with care management for outpatient infusions. PCP did report that he would follow patient. Exam Vital Signs (past 8 hours): - 01/04/25 07:45 Temperature 98.6 F Pulse Rate 78 Respiratory Rate 19 Blood Pressure 123/76 Pulse Oximetry 98 Oxygen Flow Rate 0 Fraction of Inspired Oxygen 24 SaO2/FiO2 Ratio 383 Oxygen Delivery Method Room Air Oxygen Flow Rate 0 Narrative Exam Narrative: NAD, alert and oriented. Fluent speech. Lungs are clear, normal rate and effort. Heart is regular, no murmur gallop or rub. Abdomen is soft, non distended. Extremities are free of edema. Right foot is is notable for a right 5th lateral MTP area of mild erythema without discharge or fluctuance. Objective Labs 01/04/25 03:55 01/04/25 03:55 Labs: Laboratory Results - last 24 hr 01/04/25 03:55 WBC 5.2 RBC 3.65 L Hgb 10.3 L Hct 29.7 L MCV 81.4 D MCH 28.1 MCHC 34.5 RDW 19.5 H Plt Count 90 L Neut % (Auto) 52.9 Lymph % (Auto) 31.2 [place] % (Auto) 10.9 Eos % (Auto) 3.9 Baso % (Auto) 1.1 Neut # (Auto) 2700 Lymph # (Auto) 1600 [place] # (Auto) 600 Eos # (Auto) 200 Baso # (Auto) 100 Sodium 135 L Potassium 4.1 Chloride 103 Carbon Dioxide 21 L BUN 19 Creatinine 0.94 Estimated GFR > 60 BUN/Creatinine Ratio 20.2 Glucose 105 H Calcium 9.9 Magnesium 1.7 Total Bilirubin 2.0 H AST 60 H ALT 29 Alkaline Phosphatase 102 Total Protein 8.3 H Albumin 4.2 Globulin 4.1 Albumin/Globulin Ratio 1.0 [facility] Medical History Acne (Unknown) Alcohol abuse (~2016) Decreased libido Erectile dysfunction Essential hypertension (09/12/16) Foot osteomyelitis, right Hepatosplenomegaly Hepatosplenomegaly Hypertension (2004) Low back pain (Unknown) Neuropathic foot ulcer Polyneuropathy (Unknown) Portal hypertension Surgical History H/O surgical amputation of finger Hx of cholecystectomy (2001) Family History Grandmother Mental health problem Grandfather Cancer Grandmother Cancer Mother History of back problems Father Amputation leg, bilat Social History household members: spouse and family Smoking Status: Never smoker Tobacco: How many years used: 1 Smokeless tobacco user: chewing tobacco (many, many years) alcohol intake: current substance use type: does not use Assessment & Plan Assessment & Plan narrative: 1. Right foot neuropathic ulcer with osteomyelitis, present on admission and active. He declines any surgical intervention. ESBL E coli growing from wound cultures 12/20/2024, with serial negative blood cultures. After another conversation previously, he is amenable [facility]. We are presently awaiting a private room as he has ESBL E coli and will need contact precautions. Also will require authorization from [employer]. Continue current antibiotics. - discussed with infectious disease with outpatient referral sent. He requires 6 weeks of IV antibiotic with carbapenem. She is unwilling to follow with home infusion or outpatient infusion, Discussed with PCP and he will follow patient. Needs labs twice weekly including CBC,CMP,ESR,CRP, and CK. With particular focus on his LFTs. - patient has been denied from SNFs due to substance use history, also no swing bed available. - infectious disease provider not willing to follow as outpatient if plan is for outpatient infusion center or home infusion given patient. Will follow with PCP. 2. Alcohol dependence with withdrawal, now resolved -Patient was treated for alcohol withdrawal earlier this hospital stay, now resolved. -explore alcohol rehab options. 3. Scleral icterus, present on admission and improving. -Overall, his LFTs are normalizing. 4. Hepatic encephalopathy, present on admission and resolved. -He was initiated on lactulose this admission for an ammonia of 62. He has evidence of portal hypertension as well as hepatosplenomegaly. We discussed abstinence from alcohol could still result in resolution of most of his liver abnormalities. -He reported >5 BM per day on 20 mg of lactulose daily, reduced to 10 mg today. Titrate to 2-3 per day. 5. Polyneuropathy, present on admission and active. Continue pregabalin. Increased dose from 75 mg t.i.d. to 100 mg t.i.d. 12/30/2024. He is also receiving as needed oxycodone. Code status Full Prophylaxis On Lovenox Disposition Likely suboptimal plan of outpatient therapy, either home infusion or outpatient infusion. Discharge planned for the next 1-2 days depending on outpatient infusion plan. Time-Based Coding :: [TOTAL MINUTES] spent with patient and on the chart (including review of chart, obtaining history, exam, reviewing outside data, placing orders, documenting exam and treatment plan, and counseling patient) on [DATE]. Quality VTE Deep Vein Thrombosis/Pulmonary Embolism Present on Admission: No
--- NOTE | 2025-01-04 15:07 | PM.CN ---
History of Present Illness Consult details Date Patient Seen: 01/04/25 Time Patient Seen: 14:20 Chief complaint: ETOH Narrative: The patient is a 49-year-old male with alcoholism, hepatosplenomegaly, portal hypertension, neuropathy, and neuropathic ulcer right foot with osteomyelitis involving the right 5th metatarsal phalangeal joint. He was admitted to the hospital December 20 for further treatment of his osteomyelitis and cellulitis. The patient originally presented in October and was found to have evidence for osteomyelitis and was discharged home on IV Rocephin however in his unclear if he ever received any outpatient IV antibiotic therapy. The patient is not sure how long the ulcer has been present. He does report having some pain associated with ulcer especially with ambulation. He has not had any recent fever or chills. He was noted to have elevated blood alcohol on this admission. Repeat MRI showed progression of osteomyelitis involving the right 5th metatarsophalangeal joint. He has been seen by orthopedic surgery and amputation was recommended however the patient declined. Laboratory evaluation on admission showed ESR of 65 and CRP of 2.1, PLT 90. Cultures have grown E. coli and the patient has been on IV antibiotics since admission. Review of progress notes reveals that his mental status has improved during this hospital stay and plans are being made for discharge to home tomorrow. Arrangements have been made for him to continue receiving IV antibiotic therapy at the outpatient [facility]. Meds Home Medications and Allergies Home Medications Medication Instructions Recorded Confirmed Type pregabalin 75 mg capsule 75 mg PO TID 09/26/22 12/20/24 History furosemide 40 mg tablet (Lasix) 40 mg PO DAILY #30 tabs 11/18/24 12/20/24 Rx spironolactone 25 mg tablet 25 mg PO DAILY #30 tabs 11/18/24 12/20/24 Rx Allergies Allergy/AdvReac Type Severity Reaction Status Date / Time No Known Drug Allergies Allergy Verified 11/30/24 18:14 Review of Systems Cardiovascular Comments: No chest pain Respiratory Comments: No shortness of breath Gastrointestinal Comments: Good appetite Neurologic Comments: Lower extremity neuropathy Exam Vital Signs (past 8 hours): - 01/04/25 07:45 Temperature 98.6 F Pulse Rate 78 Respiratory Rate 19 Blood Pressure 123/76 Pulse Oximetry 98 Oxygen Flow Rate 0 Fraction of Inspired Oxygen 24 SaO2/FiO2 Ratio 383 Oxygen Delivery Method Room Air Oxygen Flow Rate 0 Const Other: Well-developed well-nourished male, alert and oriented, no apparent distress Resp Other: Unlabored Skin Other: 2.5 x 2.5 cm ulcer plantar aspect right foot over 5th metatarsal head with granulation tissue, no erythema or purulent drainage noted Neuro Other: Decreased sensation both feet Objective Labs 01/04/25 03:55 01/04/25 03:55 Labs: Laboratory Results - last 24 hr 01/04/25 03:55 WBC 5.2 RBC 3.65 L Hgb 10.3 L Hct 29.7 L MCV 81.4 D MCH 28.1 MCHC 34.5 RDW 19.5 H Plt Count 90 L Neut % (Auto) 52.9 Lymph % (Auto) 31.2 [place] % (Auto) 10.9 Eos % (Auto) 3.9 Baso % (Auto) 1.1 Neut # (Auto) 2700 Lymph # (Auto) 1600 [place] # (Auto) 600 Eos # (Auto) 200 Baso # (Auto) 100 Sodium 135 L Potassium 4.1 Chloride 103 Carbon Dioxide 21 L BUN 19 Creatinine 0.94 Estimated GFR > 60 BUN/Creatinine Ratio 20.2 Glucose 105 H Calcium 9.9 Magnesium 1.7 Total Bilirubin 2.0 H AST 60 H ALT 29 Alkaline Phosphatase 102 Total Protein 8.3 H Albumin 4.2 Globulin 4.1 Albumin/Globulin Ratio 1.0 PFSH Medical History Hepatosplenomegaly Portal hypertension Hepatosplenomegaly Foot osteomyelitis, right Neuropathic foot ulcer Decreased libido Erectile dysfunction Alcohol abuse (~2017) Low back pain (Unknown) Polyneuropathy (Unknown) Acne (Unknown) Hypertension (2004) Essential hypertension (09/12/16) Surgical History H/O surgical amputation of finger Hx of cholecystectomy (2001) Family History Grandmother Mental health problem Grandfather Cancer Grandmother Cancer Mother History of back problems Father Amputation leg, bilat Social History household members: spouse and family Tobacco & Substance Use Smoking Status: Never smoker Tobacco: How many years used: 1 Smokeless tobacco user: chewing tobacco (many, many years) alcohol intake: current substance use type: does not use Assessment & Plan Assessment and plan (1) Osteomyelitis: Status: Acute (2) Polyneuropathy: Status: Chronic (3) Non-pressure chronic ulcer of right heel and midfoot with fat layer exposed: Status: Acute Assessment & Plan narrative: Neuropathic ulcer over right 5th metatarsal head with osteomyelitis involving the right 5th metatarsophalangeal joint. Recommend dressing changes with Iodoflex, pressure offloading with forefoot wedge shoe, continue IV antibiotic therapy for treatment of osteomyelitis, start protein supplementation, assess arterial circulation, follow up at wound center after discharge for further evaluation and treatment. Time-Based Coding :: [45 MINUTES] spent with patient and on the chart (including review of chart, obtaining history, exam, reviewing outside data, placing orders, documenting exam and treatment plan, and counseling patient) on [01/04/25].
--- NOTE | 2025-01-04 15:21 | DI.US.S_ITS ---
PROCEDURE: US ARTERIAL DUPLEX LE RT INDICATIONS: Ulcer right foot with osteomyelitis TECHNIQUE: Color and pulse Doppler interrogation was performed of the right lower extremity arterial system, with image documentation. COMPARISON: None. FINDINGS: Common femoral artery: 191 cm/sec, with triphasic flow. Deep femoral artery: 84 cm/sec, with triphasic flow. Proximal superficial femoral artery: 117 cm/sec, with triphasic flow. Mid superficial femoral artery: 149 cm/sec, with triphasic flow. Distal superficial femoral artery: 111 cm/sec, with triphasic flow. Popliteal artery: 64 cm/sec, with triphasic flow. Posterior tibial artery: 78 cm/sec, with triphasic flow. Anterior tibial artery/dorsalis pedis: 106 cm/sec, with monophasic flow. Pinzon-scale imaging description: No significant plaque. IMPRESSION: Hemodynamically significant stenosis. Dictated by: Zayra Hernandez M.D. on 01/04/2025 at 17:57 Approved by: Zayra Hernandez M.D. on 01/04/2025 at 17:59
[2025-01-04 16:36] VITALS: BP 121/73; PULSE 89; RESP 19; TEMP 37.1; O2SAT 100
--- NOTE | 2025-01-04 17:02 | PC.NURSE ---
Rn and MOBILE HOME TECHNICIAN wiped down pt entire body with chlorihex wipes including picc line care. RN also changed dressing on right foot ulcer, clean dry and intact, pink in color, iso dressing placed over wound, non stick pink pad, and gauzed wrapped around it to keep in place, pt tolerated well. additional dressing at bedside for next dressing change.
[2025-01-04 21:00] VITALS: BP 115/76; PULSE 92; RESP 18; TEMP 37.3; O2SAT 99
[2025-01-04] MEDS: CALCIUM CARBONATE 500 MG TAB PO ×2 (21:55→23:49)
[2025-01-05 04:21] LABS: Add Manual Diff / Slide Review NO; Basophils Absolute Auto 100 /uL (0-100); Basophils Percent Auto 1.1 % (0-2); Eosinophils Absolute Auto 200 /uL (0-450); Eosinophils Percent Auto 4.2 % (2-4); Hematocrit 31.6 % (41-53); Lymphocytes Absolute Auto 1800 /uL (1100-4500); Lymphocytes Percent Auto 31.8 % (25-40); Mean Corpuscular HGB Conc 34.9 % (30-36); Mean Corpuscular Hemoglobin 28.4 PG (26-34); Mean Corpuscular Volume 81.2 fL (80-100); Monocytes Absolute Auto 500 /uL (0-900); Monocytes Percent Auto 8.2 % (3-14); Neutrophils Absolute Auto 3000 /uL (1500-7000); Neutrophils Percent Auto 54.7 % (50-75); Platelet Count 108 X10^3/uL (150-400); Red Blood Cell Count 3.89 X10^6/uL (4.5-5.9); Red Cell Distribution Width 19.1 % (11.6-14.8); White Blood Cell Count 5.6 X10^3/uL (4.5-11.0)
[2025-01-05 04:33] VITALS: BP 112/70; PULSE 85; RESP 18; TEMP 36.9; O2SAT 99
[2025-01-05 04:34] LABS: Alanine Aminotransferase 32 IU/L (<50); Albumin 4.4 g/dL (3.5-5.0); Alkaline Phosphatase 114 U/L (38-126); Aspartate Aminotransferase 61 IU/L (17-59); BUN Creatinine Ratio 18.1 (6-22); Blood Urea Nitrogen 17 mg/dL (9-20); Carbon Dioxide 19 mmol/L (22-32); Chloride 105 mmol/L (98-107); Estimated Glomerular Filt Rate > 60 mL/min (>60); Globulin 4.5 g/dL (1.7-4.1); Glucose 114 mg/dL (70-100); HEMOLYSIS 41 (0-50); Magnesium 1.7 mg/dL (1.6-2.3); Potassium 4.2 mmol/L (3.4-5.1); Sodium 135 mmol/L (137-145); Total Protein 8.9 g/dL (6.3-8.2)
[2025-01-05] MEDS: POTASSIUM CHLORIDE 10 MEQ TAB PO (08:24)
[2025-01-05] MEDS: MAGNESIUM OXIDE 400 MG TABLET PO (08:24)
[2025-01-05] MEDS: TRAMADOL 50 MG TABLET 100 MG PO (08:24)
[2025-01-05] MEDS: FUROSEMIDE 40 MG TABLET PO (08:24)
[2025-01-05] MEDS: PREGABALIN 50 MG CAPSULE 100 MG PO (08:24)
[2025-01-05] MEDS: SPIRONOLACTONE 25 MG TABLET PO (08:24)
[2025-01-05] MEDS: THIAMINE 100 MG TABLET PO (08:24)
[2025-01-05] MEDS: NICOTINE 21 MG PATCH TOP (08:25)
--- NOTE | 2025-01-05 08:32 | CM.DPC ---
DCP Cont. Reviewed EMR and team rounds for status updates. Pt has been medically cleared for d/c. Plan is for him to d/c home, and come in to the hospital in Acute Care once daily for his IV antibiotic dose from 01/06-Wednesday 01/10, followed by him starting his daily infusions at the [facility] starting 01/11. He also has a referral to woundcare, and a consult with Dr. Santos yesterday, and they will be calling him to try and coordinate the woundcare with the IV ABO daily times. Pt will need a taxi voucher for the ride home. FRAME FEEDER explained this plan,he states understanding and is agreeable. No further d/c planning needs indicated at this time.
[2025-01-05 08:39] VITALS: BP 131/82; PULSE 95; RESP 16; TEMP 36.9; O2SAT 98
--- NOTE | 2025-01-05 09:30 | PT.IPTN ---
Current Diagnoses Alcohol dependence with withdrawal, unspecified (12/20/24) Polyneuropathy, unspecified (12/20/24) Non-pressure chronic ulcer of right heel and midfoot with fat layer exposed (12/20/24) Osteomyelitis, unspecified (12/20/24) Physical Therapy Treatment Note M2 PT-IP Current Condition Start: 12/29/24 11:28 Freq: NEEDED Status: Active Protocol: Document 01/05/25 09:15 SP (Rec: 01/05/25 09:50 SP [id number]) Physical Therapy Current Condition Current Condition Evaluation Date 12/29/24 Treatment Diagnosis R 5th toe osteomyelitis; ETOH; difficulty in walking Onset Date 12/20/24 M3 PT-IP Subjective Start: 12/29/24 11:28 Freq: NEEDED Status: Active Protocol: Document 01/05/25 09:15 SP (Rec: 01/05/25 09:50 SP [id number]) Subjective Physical Therapy Visit Type Type Treatment Note Visit Start Time 09:15 Visit Stop Time 09:30 Number of SENIOR ASIC ENGINEER Visits 1 Physical Therapy Visit Comments Patient Comments Pt agreeable to working with SENIOR ASIC ENGINEER. Therapy Pain Assessment Pain When Pain Assessed During Mobility Pain Present Pain Present Pain Reported Location Right Foot Scale Used scale not rated Description With Movement Pain Management Techniques Distraction,Modification of Treatment,Re-positioning, Timing of Activity with Medications M4 PT-IP Mobility and Gait Start: 12/29/24 11:28 Freq: NEEDED Status: Active Protocol: Document 01/05/25 09:15 SP (Rec: 01/05/25 09:50 SP [id number]) PT-Bed Mobility Assessment Supine to Sit Supine to Sit Independent Sit to Supine Sit to Supine Independent Scooting Scooting to Edge of Bed Independent Scooting Up and Down in Bed Independent PT-Transfer Assessment Sit to and From Stand Sit to and from Stand Standby Assistance,Use of Upper Extremities Equipment Transfer Assistive Device Gait Belt,Front Wheeled Walker Orthotic/Prosthetic Devices or Brace: Yes Transfers Transfer Destination Bed Transfer Technique Ambulation /c FWW Transfer Ability Level of Assist Standby Assistance,Use of Upper Extremities Comments Mobility Comments Pt had offloading shoe donned when arrived, layng in bed. Completed sup<>sit I. SENIOR ASIC ENGINEER provided close SBA, cues for push from bed and FWW,cues for continued slick gautam and stated staffing is aware and beign cautious during mobility . Gait room to stairs with FWW SBA, completed 6 stairs BUE on L HR step to asc/desc then returned to room bed. Pt had call light and all needs inreach before left. Gait Assessment Gait Gait Assistance Required: Standby Assistance Distance (Feet) 150 Able to Maintain Weight Bearing Status Yes During Gait Assistive Devices Assistive Device Gait Belt,Front Wheeled Walker Orthotic/Prosthetic Devices or Brace: Yes Gait Deviations General Gait Pattern Flexed Trunk,Step-to Gait,Wide Based Gait Factors Limiting Gait Function Factors Limiting Gait Function Decreased Activity Tolerance, Decreased Sensation Comments Gait Comments see mobility comments. Stair Climbing Assessment Evaluation Level of Assist On Stairs Standby Assistance,1 Person Assistance Devices Stair Climbing Assistive Devices Left Railing Technique/Endurance Stair Climbing Direction Ascend and Descend Stair Climbing Technique Step to Step Number of Steps Climbed 3 Stair Climbing Set # Repetitions (reps) 2 Comments Stair Climbing Comments Continued patternign lead L ft 1st ascend, R descend 1st, good patterning stable. BUEs on L HR PT-Balance Assessment Sitting Balance and Reactions Static Sitting Balance Ability Good Dynamic Sitting Balance Ability Good Standing Balance and Reactions Static Standing Balance Ability Good Dynamic Standing Balance Ability Good Device Used RW, right post-op shoe M5 PT-IP Objective Assessments Start: 12/29/24 11:28 Freq: NEEDED Status: Active Protocol: Document 12/29/24 10:25 AB (Rec: 12/29/24 11:49 AB [id number]) Orientation Orientation/Cognition Level of Alertness Alert Orientation Name,Place,Situation Language Function Ability No Deficits Noted Safety Awareness Decreased Safety Awareness Memory Description No Deficits Noted Gross Range of Motion Lower Extremity ROM Assessment Within Functional Limits Strength Lower Extremity Strength Assessment Within Functional Limits Sensation Assessment Sensation Gross Sensation Right UE Impaired,Right LE Impaired,Left LE Impaired Sensation Description Numbness Other Assessments Other Other Assessments (+) LE tremors during ambulation M6 PT-IP Treatment Start: 12/29/24 11:28 Freq: NEEDED Status: Active Protocol: Document 01/05/25 09:15 SP (Rec: 01/05/25 09:50 SP [id number]) Physical Therapy Treatment Education Education Provided Safety Other Treatments Other Treatment Performed Re-ed in benefits, donning and wear of forefoot offloading shoe. ALso discussed having family/friend putting down salt onground before get home safety not slipping on ice, pt states will ask EMT come by, family don't go outside and no friends.. M7 PT-IP Assessment and Plan Start: 12/29/24 11:28 Freq: NEEDED Status: Active Protocol: Document 01/05/25 09:15 SP (Rec: 01/05/25 09:50 SP [id number]) PT Summary Assessment and Plan Potential Rehabilitation Potential Fair Status of Condition at Evaluation Evolving Summary Impairments Pain,ROM,Strength,Balance, Coordination,Sensation, Cognition,Bed Mobility, Transfers,Gait,Activity Tolerance Assessment Summary SBA for all mobiltiy with FWW, R off loading shoe donned self mgt. Pt ok to return home wiht family assist him as needed. REcommending HHPT and pt stated will borrow FWW from [employer], educated th ey are open T and Fri and not today. Recommended [facility] dispense FWW but pt declined will find 1 to borrow, when medically cleared home with family.. Spoke to Care mgt and let them know and have anorder already for FWW to dispense if pt changes his mind let us know. Goals Transfer Goal Independent,Front Wheeled Walker Gait Goal Independent,Front Wheel Walker Gait Distance 75 Other Goals Pt with forefoot offloading shoe and recommend ongoing AD use at d/c up/down 5 steps L rail ascending SBA Days to Meet Goals 5 Frequency of Treatment Frequency Of Treatment Once a Day Other frequency x1 Treatment Plan Physical Therapy Treatment Plan Transfer Training,Gait Training,Therapeutic Exercise, Balance Retraining,Discharge Planning,Coordination Retraining Precautions Other Precautions Falls, right forefoot offloading shoe Weight Bearing Status Allowed Weight Bearing Amount (enter % No WB restrictions, how has or #) (%) forefoot offloading shoe for right Recommendations To Nursing Amount of Assist Needed Standby Assistance Discharge Recommendations PT Discharge Recommendations Home with Assistance,Home Health Equipment Needed for Home Before Pt will need a RW for d/c, pt Discharge declined when offered to dispense stated will borrow. Transportation Needs at Discharge Private Vehicle
[2025-01-05] MEDS: OXYCODONE IR 5 MG TABLET PO (10:06)
[2025-01-05] MEDS: ERTAPENEM 1 GM in SODIUM CHLORIDE 0.9% 100 ML IV (11:27)
--- NOTE | 2025-01-05 12:38 | P.DS_ITS ---
History of Present Illness History of Present Illness Date Patient Seen: 01/05/25 Time Patient Seen: 12:39 Chief complaint: ETOH Narrative: Per admitting provider, This is a 49-year-old male with alcoholism, previous alcohol withdrawal syndrome, right foot neuropathic ulcer with osteomyelitis, hepatosplenomegaly, portal hypertension, peripheral neuropathy and hypertension who presents with alcohol withdrawal and continued right foot cellulitis/osteomyelitis. He was here for 5 days in October and then discharged with a plan to complete 2 weeks of empiric ceftriaxone for the osteomyelitis, which would have ended on December 06. He had returned to the ED once since then stating that he was not comfortable giving himself the antibiotic so it is unclear whether he ever finished it. He says that his PICC line was caught on something and came out about 2 days ago. He really can not give any other history other than needing a new plan for treatment and wanting to stop drinking. He is speaking very slowly and appears to be encephalopathic. He has very diminished recall ability. He does not report any fevers or foot pain. He does have dense neuropathic changes in his feet, likely related to alcohol use and so has very little feeling. He also has a recent CT scan showing hepatosplenomegaly and portal hypertension so likely has end-stage liver disease. An ammonia level is pending. A repeat MRI shows continued osteomyelitis of the right 5th metatarsal at the MTP joint. Orthopedics will be consulted. The patient has been very clear that he does not wish to have amputation treatment and would ?rather .? His hemoglobin remains suppressed and unchanged at 8.7 with a bilirubin of 2.0. The admitting alcohol level is 258. He has a distinctive alcoholic odor to his breath. Discharge Providers Provider Date of admission: 12/20/24 10:23 Discharge Date: 01/05/25 Primary care physician: Mario Cutler MD Consults: 12/20/24 04:52 Consult to [facility] - Associate Counsel Stat Comment: Associate Counsel Consult needed for:: Unable to care for self Substance abuse 12/24/24 11:58 Consult to Orthopedic Surgery Routine Comment: Consulting Provider: Darron Rahman Reason for consultation: foot infection. Osteomyelitis. Has provider been notified: Yes 12/29/24 08:12 Consult to Physical Therapy Evaluate & Treat Comment: Physician Instructions: Evaluate and Treat 01/02/25 11:10 Consult to Physical Therapy Evaluate & Treat Comment: Physician Instructions: Post op shoe, Rt foot, per PT 01/04/25 12:43 Consult to Wound Care Routine Comment: Consulting Provider: [facility] 01/04/25 13:31 Consult to Physical Therapy Evaluate & Treat Comment: safe mobility post d/c Physician Instructions: 2-wheeled walker Discharge provider: Candelario Lopez DO Summary Hospital Course Discharge Diagnosis: Please see hospital course by problem list noted below. Hospital Course: 1. Right foot neuropathic ulcer with osteomyelitis, present on admission and active. -Orthopedic team was consulted but he refused surgical interventions. Wound cultures obtained on 12/20 grew an ESBL E. coli. Discussed with infectious disease provider initially and recommended Ertapenem therapy, however this provider was unwilling to follow if plan was for home infusion or outpatient infusion due to patient's prior EtOH use. Patient was denied from several SNFs and from a Swing bed. PCP agreed to monitor as an outpatient. - ESBL E coli growing from wound cultures 12/20/2024, with serial negative blood cultures. - He requires 6 weeks of IV antibiotic with carbapenem. Needs labs twice weekly including CBC,CMP,ESR,CRP, and CK. With particular focus on his LFTs. - Appreciate wound care consultation, will follow as an outpatient. 2. Alcohol dependence with withdrawal, now resolved -Patient was treated for alcohol withdrawal initially but this resolved fairly quickly. 3. Scleral icterus, present on admission and improving. -Overall, his LFTs are normalizing with cessation of EtOH. 4. Hepatic encephalopathy, present on admission and resolved. -He was initiated on lactulose this admission for an ammonia of 62. He has evidence of portal hypertension as well as hepatosplenomegaly. We discussed abstinence from alcohol is the only way to have his liver possibly improve. -He reported >5 BM per day on 20 mg of lactulose daily, reduced to 10 mg daily. Titrate to 2-3 per day. Discharged on lactulose. -he was started on furosemide and aldactone. 5. Polyneuropathy, present on admission and active. Continue pregabalin 75 mg t.i.d. on discharge. He is also receiving as needed oxycodone. Time Spent with Patient Time spent: Greater than 30 minutes Exam Vital Signs (past 8 hours): - 01/05/25 08:39 Temperature 98.5 F Pulse Rate 95 H Respiratory Rate 16 Blood Pressure 131/82 Pulse Oximetry 98 Oxygen Flow Rate 0 Fraction of Inspired Oxygen 24 SaO2/FiO2 Ratio 383 Oxygen Delivery Method Room Air Oxygen Flow Rate 0 Narrative Exam Narrative: NAD, alert and oriented. Fluent speech. Lungs are clear, normal rate and effort. Heart is regular, no murmur gallop or rub. Abdomen is soft, non distended. Extremities are free of edema. Right foot is is notable for a right 5th lateral MTP area of mild erythema without discharge or fluctuance. Objective Labs 01/05/25 04:00 01/05/25 04:00 Labs: Laboratory Results - last 24 hr 01/05/25 04:00 WBC 5.6 RBC 3.89 L Hgb 11.0 L Hct 31.6 L MCV 81.2 MCH 28.4 MCHC 34.9 RDW 19.1 H Plt Count 108 L Neut % (Auto) 54.7 Lymph % (Auto) 31.8 [place] % (Auto) 8.2 Eos % (Auto) 4.2 H Baso % (Auto) 1.1 Neut # (Auto) 3000 Lymph # (Auto) 1800 [place] # (Auto) 500 Eos # (Auto) 200 Baso # (Auto) 100 Sodium 135 L Potassium 4.2 Chloride 105 Carbon Dioxide 19 L BUN 17 Creatinine 0.94 Estimated GFR > 60 BUN/Creatinine Ratio 18.1 Glucose 114 H Calcium 10.0 Magnesium 1.7 Total Bilirubin 2.0 H AST 61 H ALT 32 Alkaline Phosphatase 114 Total Protein 8.9 H Albumin 4.4 Globulin 4.5 H Albumin/Globulin Ratio 1.0 PFSH Medical History Hepatosplenomegaly Portal hypertension Hepatosplenomegaly Foot osteomyelitis, right Neuropathic foot ulcer Decreased libido Erectile dysfunction Alcohol abuse (~2017) Low back pain (Unknown) Polyneuropathy (Unknown) Acne (Unknown) Hypertension (2004) Essential hypertension (09/12/16) Surgical History H/O surgical amputation of finger Hx of cholecystectomy (2001) Family History Grandmother Mental health problem Grandfather Cancer Grandmother Cancer Mother History of back problems Father Amputation leg, bilat Social History household members: spouse and family Smoking Status: Never smoker Tobacco: How many years used: 1 Smokeless tobacco user: chewing tobacco (many, many years) alcohol intake: current substance use type: does not use Discharge Plan Discharge Plan Patient Disposition: Home Provider Discharge Comment: You were admitted to the hospital with an infection in your R foot and bones. This is treated with 6 weeks of IV antibiotics. Please follow up with PCP as soon as possible and continue to get antibiotics every day. Discharge orders & Medications Prescriptions: New ertapenem 1 gram recon soln 1 g IM Q24H Qty: 10 0RF lactulose 20 gram/30 mL Solution 10 g PO DAILY 30 Days Qty: 1200 0RF oxycodone 5 mg Tablet 5 mg PO Q4HR PRN (Reason: Pain, Severe (7-10)) 7 Days Qty: 20 0RF pregabalin 50 mg Capsule 100 mg PO TID 30 Days Qty: 90 0RF tramadol 100 mg tablet 100 mg PO QID PRN (Reason: Pain, Moderate (4-6)) 7 Days Qty: 25 0RF Continued pregabalin 75 mg capsule 75 mg PO TID Patient Comments: TAKE ONE CAPSULE BY MOUTH THREE TIMES DAILY furosemide [Lasix] 40 mg tablet 40 mg PO DAILY Qty: 30 0RF spironolactone 25 mg tablet 25 mg PO DAILY Qty: 30 0RF Follow up/Referrals: Mario Cutler MD [Primary Care Provider] - Other Ambulatory Orders: Referral to: (Schedule) Timeframe: 2 Weeks Location: Determined by Patient Ordered By: Candelario Lopez Diet/Activity/Treatments Diet: Diet as Tolerated and Regular Activity: As tolerated no restrictions Skin/Wound/Dressing Care Dressing: Outpatient woundcare Other wound treatment: Watch for signs of infection Visit Report/Discharge Packet Instructions: Alcohol Use Disorder (Alternative Therapy), DI for Osteomyelitis Stand Alone Forms: Patient Portal/API, Stroke Signs & Symptoms Discharge Data Primary Care Provider: Mario Cutler Quality VTE Deep Vein Thrombosis/Pulmonary Embolism Present on Admission: No
== END 2025-01-05 13:00 | disposition home or self-care (01) | DRG 344 ==
LOC: ED 07:36 → AC 10:24
PROVIDERS: Family Medicine; Hospitalist; Internal Medicine; Student in an Organized Health Care Education/Training Program; Admitting Provider Family Medicine; Emergency Provider Emergency Medicine; PCP Family Medicine; Referring Provider Emergency Medicine; Visit Provider Family Medicine
DX: M86.8X7 Other osteomyelitis, ankle and foot (principal); F10.239 Alcohol dependence with withdrawal, unspecified; K72.10 Chronic hepatic failure without coma; D64.9 Anemia, unspecified; G62.9 Polyneuropathy, unspecified; E83.42 Hypomagnesemia; K76.6 Portal hypertension; R16.2 Hepatomegaly with splenomegaly, not elsewhere classified; I10 Essential (primary) hypertension; B96.20 Unspecified Escherichia coli [E. coli] as the cause of diseases classified elsewhere; K76.82 Hepatic encephalopathy; L97.412 Non-pressure chronic ulcer of right heel and midfoot with fat layer exposed; F17.220 Nicotine dependence, chewing tobacco, uncomplicated; Y90.8 Blood alcohol level of 240 mg/100 ml or more
CPT/HCPCS: 36415; 36569; 36592; 73630; 73720; 80048; 80053; 80202; 80320; 80329; 82140; 82550; 82607; 83540; 83550; 83605; 83735; 84443; 85025; 85027; 85651; 86140; 87040; 87070; 87075; 87077; 87186; 87205; 93926; 96365; 97110; 97116; 97162; 97530; 97535; 99285; A9270; A9579; G0480; J0692; J0696; J1335; J1642; J1650; J2916

== ENCOUNTER 2025-01-11 12:03 | Emergency (ER) | payer OTHER, SELFPAY ==
[2024-12-20 11:04] VITALS: BMI 33.1
[2025-01-11 12:09] VITALS: BP 151/70; PULSE 110; RESP 20; TEMP 36.8; O2SAT 100; BMI 31.5
--- NOTE | 2025-01-11 12:54 | EKG_ITS ---
[facility] [address] [address] Test Date: 2025-01-11 Pat Name: Eric Fontenot Department: [facility] Room: Gender: Male Chronograph Operator: monique : 1975 Requested By: Order Number: [id number] Reading MD: Edmond Darnell MD Measurements Intervals [place] Rate: 96 P: 54 DE: 152 QRS: 18 QRSD: 86 T: 18 QT: 356 QTc: 449 Interpretive Statements Normal sinus rhythm Electronically Signed On 01-12-2025 8:01:52 PST by Edmond Darnell MD
--- NOTE | 2025-01-11 14:39 | PC.NURSE ---
going to infusion suite & will return after IV abx. has PICC / infusion will do labs & will return for physician evaluation after IV abx. Report given to infusion suite.
[2025-01-11 14:43] VITALS: BP 133/68; PULSE 99; RESP 16; TEMP 37.1; O2SAT 100
[2025-01-11 15:30] LABS: Add Manual Diff / Slide Review NO; Basophils Absolute Auto 0 /uL (0-100); Basophils Percent Auto 0.6 % (0-2); Eosinophils Absolute Auto 200 /uL (0-450); Eosinophils Percent Auto 3.8 % (2-4); Hematocrit 29.2 % (41-53); Lymphocytes Absolute Auto 800 /uL (1100-4500); Lymphocytes Percent Auto 19.5 % (25-40); Mean Corpuscular Hemoglobin 27.7 PG (26-34); Mean Corpuscular Volume 81.3 fL (80-100); Monocytes Absolute Auto 500 /uL (0-900); Monocytes Percent Auto 10.6 % (3-14); Neutrophils Absolute Auto 2800 /uL (1500-7000); Neutrophils Percent Auto 65.5 % (50-75); Platelet Count 97 X10^3/uL (150-400); Red Cell Distribution Width 19.3 % (11.6-14.8); White Blood Cell Count 4.3 X10^3/uL (4.5-11.0)
[2025-01-11 15:36] LABS: INR 1.4 (0.9-1.3); Prothrombin Time 16.2 SECONDS (9.4-12.5)
[2025-01-11 15:38] LABS: PTT Partial Thromboplastin Tim 69 SECONDS (25.1-36.5)
[2025-01-11 15:40] LABS: Lactate (Lactic Acid) 1.2 mmol/L (0.7-2.1)
[2025-01-11 15:41] LABS: Alanine Aminotransferase 33 IU/L (<50); Alkaline Phosphatase 132 U/L (38-126); Aspartate Aminotransferase 61 IU/L (17-59); BUN Creatinine Ratio 3.9 (6-22); Bilirubin Total 2.9 mg/dL (0.2-1.3); Blood Urea Nitrogen 3 mg/dL (9-20); Calcium 9.3 mg/dL (8.4-10.2); Carbon Dioxide 25 mmol/L (22-32); Chloride 104 mmol/L (98-107); Estimated Glomerular Filt Rate > 60 mL/min (>60); Glucose 133 mg/dL (70-100); HEMOLYSIS < 15 (0-50); Lipase 112 U/L (23-300); Potassium 3.9 mmol/L (3.4-5.1); Sodium 135 mmol/L (137-145)
[2025-01-11 15:43] LABS: C-Reactive Protein Quant 1.6 mg/dL (<1.0); Creatine Kinase 69 U/L (55-170)
[2025-01-11 15:53] LABS: NT-proBNP (BNP-Adult 18+) 39 pg/mL (<125); Troponin I < 0.012 ng/mL (0.01-0.034)
[2025-01-11 15:54] LABS: Erythrocyte Sedimentation Rate 58 MM/HR (0-15)
[2025-01-11 15:59] LABS: Procalcitonin 0.051 ng/mL (<0.5)
[2025-01-11 16:04] VITALS: BP 139/71; PULSE 104; RESP 18; TEMP 37.4; O2SAT 98
[2025-01-11 18:05] VITALS: BP 126/61; PULSE 98; RESP 18; TEMP 37; O2SAT 99
--- NOTE | 2025-01-11 18:19 | PC.NURSE ---
*[address] [address] Eric Fontenot Male : 1975 MedRec# [id number] 01/11/25 16:02 - Nurse Note by Codi Colon RN Acct Num: [id number] : 1975 Patient Age: 49 1435 Called ER and spoke with Zaida Crum RN, Patient is in waiting area of ER and still needs to be seen by provider. He has not had labs they need drawn yet, . Patient was also scheduled here at infusion today 01/11/25 for daily IV Ertapenem, He is also due today for a lab draw and dsg changed per Antibiotic Infusion Orders. Asked Zaida Crum if it would help for us to bring patient over to infusion and draw labs, give his antibiotic infusion, change dsg; and then return to ER waiting or ER room if available. ED in agreement that would be helpful for them. 1600 Left Arm PICC line dsg changed, Labs and 1st set of blood cx's obtained, PICC line Hep-Locked, R FA #18 GA PIV placed/saline locked & 2nd set Blood CX obtained - PIV to remain in place as patient is returning to ER. Report to be called/given by RN to ER nurse when returning patient to ER waiting. Initialized on 01/11/25 16:02 - END OF NOTE
--- NOTE | 2025-01-11 20:13 | DI.RAD.S_ITS ---
PROCEDURE: XR FOOT RT MIN 3V INDICATIONS: chronic wound, hx osteo TECHNIQUE: 3 views of the foot were acquired. COMPARISON: [facility], CR, XR FOOT RT MIN 3V, 12/20/2024, 5:02. [facility], CR, XR FOOT LT 2V, 11/24/2024, 11:07. FINDINGS AND IMPRESSION: Similar deformity, sclerosis, and possible pathologic nondisplaced fracture at the 5th MTP proximal phalangeal base. Diffuse soft tissue swelling, most significant adjacent to the 5th MTP. Consider MRI for osteomyelitis surveillance if necessary. Background midfoot and 1st MTP degenerative changes. Similar bone fragment at the 2nd proximal phalangeal base. Plantar and calcaneal enthesopathy. Dictated by: Roberto Carlos Arellano M.D. on 01/11/2025 at 20:48 Approved by: Roberto Carlos Arellano M.D. on 01/11/2025 at 20:50
--- NOTE | 2025-01-11 20:29 | ED.WOUNDLAC ---
HPI - Wound/Laceration General Chief Complaint: Wound/Laceration Stated Complaint: R foot lesions with swelling and pain Time Seen by Provider: 01/11/25 20:29 History of Present Illness HPI narrative: Patient is a 49 male history of alcoholism with right foot neuropathic ulcer and osteomyelitis, who was recently admitted and discharged on January 05 or he grew ESBL E coli refused surgical interventions with Orthopedics now require 6 weeks of carbapenems and weekly blood tests, he was presenting today with increasing swelling legs and some redness on both legs. He reports he has been out of his Lasix for a couple of days he is also out of his spironolactone. He has been chilled but no actual fever. He has been getting his IV antibiotics. Denies any chest pain or shortness of breath. No significant abdominal pain or bloating. He reports that he is still drinking alcohol but has cut back significantly. He has not seen his primary care provider. He says that the swelling in his legs was going down helping with the pain but over the last few days swelling has gotten worse he has had couple splotchy areas of erythema on both legs as well. He was told that if symptoms were worsened then he should come to the ED Related Data Home Medications Medication Instructions Recorded Confirmed pregabalin 75 mg capsule 75 mg PO TID 09/26/22 12/20/24 Previous Rx's Medication Instructions Recorded furosemide 40 mg tablet (Lasix) 40 mg PO DAILY #30 tabs 11/18/24 spironolactone 25 mg tablet 25 mg PO DAILY #30 tabs 11/18/24 ertapenem 1 gram solution for 1 g IM Q24H #10 ea 01/05/25 injection lactulose 20 gram/30 mL oral 10 g (15 mL) PO DAILY 30 days 01/05/25 solution #1,200 mL pregabalin 50 mg capsule 100 mg (2 x 50 mg) PO TID 30 days 01/05/25 #90 caps furosemide 40 mg tablet (Lasix) 40 mg PO DAILY #30 tabs 01/11/25 spironolactone 25 mg tablet 25 mg PO DAILY #30 tabs 01/11/25 Allergies Allergy/AdvReac Type Severity Reaction Status Date / Time No Known Drug Allergies Allergy Verified 11/30/24 18:14 Patient History Medical History Hepatosplenomegaly Portal hypertension Hepatosplenomegaly Foot osteomyelitis, right Neuropathic foot ulcer Decreased libido Erectile dysfunction Alcohol abuse (~2017) Low back pain (Unknown) Polyneuropathy (Unknown) Acne (Unknown) Hypertension (2004) Essential hypertension (09/12/16) Surgical History H/O surgical amputation of finger Hx of cholecystectomy (2001) Family History Grandmother Mental health problem Grandfather Cancer Grandmother Cancer Mother History of back problems Father Amputation leg, bilat Social History household members: spouse and family Smoking Status: Current every day smoker Tobacco: How many years used: 1 Smokeless tobacco user: chewing tobacco (many, many years) alcohol intake: current substance use type: does not use Smoking Status: Current every day smoker tobacco type: cigarettes and smokeless tobacco alcohol intake frequency: 0-2 drinks per day Alcohol type: beer Exam Initial Vital Signs Initial Vital Signs: Vital Signs Temperature 98.2 F 01/11/25 12:09 Pulse Rate 110 H 01/11/25 12:09 Respiratory Rate 20 01/11/25 12:09 Blood Pressure 151/70 H 01/11/25 12:09 Pulse Oximetry 100 01/11/25 12:09 Oxygen Delivery Method Room Air 01/11/25 12:09 GENERAL: Alert very pleasant 49-year-old male and in no acute distress. HEENT: Head atraumatic,EOMI, pupils reactive, face symmetric, moist mucous membranes CARDIOVASCULAR: Regular rate and rhythm without murmurs, rubs or gallops. RESPIRATORY: Breath sounds equal bilaterally, no wheezes rales or rhonchi. ABDOMEN: Soft, nontender. Normoactive bowel sounds all 4 quadrants. No guarding or rebound. No fluids soft EXTREMITIES: Normal range of motion, no clubbing. Neurovascularly intact Significant bilateral lower extremity edema +3 NEUROLOGICAL: Alert and oriented x4.Normal gait and speech. SKIN: Right foot chronic ulcer persistent drainage some mild erythema on the skin. Both shins have very small areas of erythema legs are significantly swollen Course Orders Ordered: ED Orders 01/11/25 20:13 XR foot RT min 3V Stat 01/11/25 20:20 Urine Microscopic Stat Discontinued Medications Furosemide (Furosemide 40 Mg/4 Ml Vial) 40 mg IV NOW ONE Stop: 01/11/25 22:07 Last Admin: 01/11/25 22:27 Dose: 40 mg Documented By: STEPHAN Ondansetron HCl (Ondansetron 4 Mg/2 Ml Inj) 4 mg IV NOW PRN PRN Reason: Nausea And Vomiting Ondansetron HCl (Ondansetron 4 Mg Odt) 4 mg SL NOW PRN PRN Reason: Nausea And Vomiting Vital Signs Vital signs: Vital Signs - 8 hr 01/11/25 22:26 Pulse Rate 100 H Respiratory Rate 20 Blood Pressure 140/83 Pulse Oximetry 100 Oxygen Delivery Method Room Air MDM - Wound/Laceration Lab Data 01/11/25 15:05 01/11/25 15:05 Labs: Lab Results 01/11/25 01/11/25 01/11/25 Range/Units 15:05 15:10 20:20 WBC 4.3 L (4.5-11.0) X10^3/uL RBC 3.60 L (4.5-5.9) X10^6/uL Hgb 10.0 L (13.5-17.5) g/dL Hct 29.2 L (41-53) % MCV 81.3 (80-100) fL MCH 27.7 (26-34) PG MCHC 34.0 (30-36) % RDW 19.3 H (11.6-14.8) % Plt Count 97 L (150-400) X10^3/uL Neut % (Auto) 65.5 (50-75) % Lymph % (Auto) 19.5 L (25-40) % [place] % (Auto) 10.6 (3-14) % Eos % (Auto) 3.8 (2-4) % Baso % (Auto) 0.6 (0-2) % Neut # (Auto) 2800 (8496-2283) /uL Lymph # (Auto) 800 L (4536-8370) /uL [place] # (Auto) 500 (0-900) /uL Eos # (Auto) 200 (0-450) /uL Baso # (Auto) 0 (0-100) /uL ESR 58 H (0-15) MM/HR PT 16.2 H (9.4-12.5) SECONDS INR 1.4 H (0.9-1.3) APTT 69 H (25.1-36.5) SECONDS Sodium 135 L (137-145) mmol/L Potassium 3.9 (3.4-5.1) mmol/L Chloride 104 (98-107) mmol/L Carbon Dioxide 25 (22-32) mmol/L BUN 3 L (9-20) mg/dL Creatinine 0.76 (0.66-1.25) mg/dL Estimated GFR > 60 (>60) mL/min BUN/Creatinine Ratio 3.9 L (6-22) Glucose 133 H (70-100) mg/dL Lactate 1.2 (0.7-2.1) mmol/L Calcium 9.3 (8.4-10.2) mg/dL Total Bilirubin 2.9 H (0.2-1.3) mg/dL AST 61 H (17-59) IU/L ALT 33 (<50) IU/L Alkaline Phosphatase 132 H (38-126) U/L Total Creatine Kinase 69 (55-170) U/L Troponin I < 0.012 (0.01-0.034) ng/mL C-Reactive Protein 1.6 H (<1.0) mg/dL NT-Pro-B Natriuret Pep 39 (<125) pg/mL Total Protein 8.0 (6.3-8.2) g/dL Albumin 4.0 (3.5-5.0) g/dL Globulin 4.0 (1.7-4.1) g/dL Albumin/Globulin Ratio 1.0 (1.0-2.8) Lipase 112 (23-300) U/L Procalcitonin 0.051 (<0.5) ng/mL Urine RBC None seen (0-5/HPF) Urine WBC 0-1/hpf (0-5/HPF) Ur Squamous Epith Cells 0-1 /hpf (0-5/HPF) Urine Bacteria Occasional (0-1) (None) Ur Culture Indicated? Cult not indicated Vol Urine Centrifuged 10ml (spun) Imaging Data Extremity x-ray #1: Radiologist's Impression: PROCEDURE: XR FOOT RT MIN 3V INDICATIONS: chronic wound, hx osteo TECHNIQUE: 3 views of the foot were acquired. COMPARISON: [facility], CR, XR FOOT RT MIN 3V, 12/20/2024, 5:02. [facility], CR, XR FOOT LT 2V, 11/24/2024, 11:07. FINDINGS AND IMPRESSION: Similar deformity, sclerosis, and possible pathologic nondisplaced fracture at the 5th MTP proximal phalangeal base. Diffuse soft tissue swelling, most significant adjacent to the 5th MTP. Consider MRI for osteomyelitis surveillance if necessary. Background midfoot and 1st MTP degenerative changes. Similar bone fragment at the 2nd proximal phalangeal base. Plantar and calcaneal enthesopathy. Dictated by: Roberto Carlos Arellano M.D. on 01/11/2025 at 20:48 ECG Data Attestation: I personally reviewed and interpreted this ECG as follows: Prior ECG tracings: available for review Interpretation: Normal sinus rhythm rate 96 ID interval 152 QRS [address] changes similar to prior MDM Narrative Medical decision making narrative: MDM CC: Leg swelling Complicating co-morbidities: Alcoholism known osteomyelitis Medical records reviewed: Admission reviewed Differential considered: Cellulitis, DVT, fluid retention, osteomyelitis Exam documented above, pertinent findings include: Pleasant 49-year-old male bilateral pitting edema lower extremities. Chronic right foot wound mild erythema there splotchy erythema areas that are small on anterior mckeon Lab Test results independently reviewed as above. Pertinent findings: WBC 4.3 anemia stable ESR 58 previously 56 CRP 1.6 previously 1.1 Lactate 1.2 procalcitonin 0.051 Electrolytes are stable no ANA LUISA Independently reviewed EKG as above no ischemia Imaging studies independently reviewed: Foot x-ray questionable 5th metatarsal fracture Consultations: none Treatments: Lasix 40 Discussion: Patient 49-year-old male known osteomyelitis of right foot presenting today with increasing pain and swelling. He has been out of his Lasix he is bilateral lower extremity edema. He was some erythema which I think are secondary to edema not necessarily cellulitis. Low suspicion for DVT both legs are quite swollen and history of being out of diuretics. Has no shortness of breath or conversational dyspnea. Worsening ESR CRP unsure relevance of this. He has no leukocytosis and normal lactate. He was getting ertapenem he has not missed any doses. X-ray shows questionable fracture which to be a pathologic fracture from osteomyelitis which may also explain the pain. He had a orthopedic shoe. Patient was really considering his decision about declining surgical intervention. I recommend he discuss these options with orthopedics. Discharge Plan Departure Patient Disposition: Home Clinical Impression: Peripheral edema, Fracture of 5th metatarsal Instructions: DI for Foot Fracture Activity Restrictions/Additional Instructions: *You have been diagnosed with peripheral edema foot fracture *What to do: At this time please take your diuretics. Toe is likely more painful secondary to fracture. This will be challenging to heal due to ongoing infection. Follow up with Orthopedic *Continue to take medications as directed Lasix 40 mg once a day Spironolactone 25 mg once a day *Follow up with your primary care provider in 2-3 days or call [phone] Follow up with your PCP and or orthopedic *Return to ER if you should have increased swelling chest pain shortness of breath fever redness streaking or any new, worsening or concerning symptoms Prescriptions: New furosemide [Lasix] 40 mg tablet 40 mg PO DAILY Qty: 30 0RF spironolactone 25 mg tablet 25 mg PO DAILY Qty: 30 0RF No Action pregabalin 75 mg capsule 75 mg PO TID Patient Comments: TAKE ONE CAPSULE BY MOUTH THREE TIMES DAILY furosemide [Lasix] 40 mg tablet 40 mg PO DAILY Qty: 30 0RF spironolactone 25 mg tablet 25 mg PO DAILY Qty: 30 0RF ertapenem 1 gram recon soln 1 g IM Q24H Qty: 10 0RF lactulose 20 gram/30 mL Solution 10 g PO DAILY 30 Days Qty: 1200 0RF pregabalin 50 mg Capsule 100 mg PO TID 30 Days Qty: 90 0RF Referrals: Mario Cutler MD [Primary Care Provider] - Stand Alone Forms: Patient Portal/API/Survey
[2025-01-11 20:38] LABS: Bacteria Urine Occasional (0-1); Culture Indicated Urine Cult Not Indicated; RBC Urine None Seen (0-5/HPF); Squamous Epithelial Cell Urine 0-1 /HPF (0-5/HPF); Urine Volume 10mL (spun); WBC Urine 0-1/HPF (0-5/HPF)
[2025-01-11 22:26] VITALS: BP 140/83; PULSE 100; RESP 20; O2SAT 100
[2025-01-11] MEDS: FUROSEMIDE 40 MG/4 ML VIAL IV (22:27)
== END 2025-01-11 22:30 | disposition home or self-care (01) ==
PROVIDERS: Emergency Medicine; Emergency Provider Emergency Medicine; PCP Family Medicine
DX: R60.0 Localized edema (principal); S92.351A Displaced fracture of fifth metatarsal bone, right foot, initial encounter for closed fracture; Z79.01 Long term (current) use of anticoagulants
CPT/HCPCS: 36415; 36592; 73630; 80053; 81003; 81015; 82550; 83605; 83690; 83880; 84145; 84484; 85025; 85610; 85651; 85730; 86140; 87040; 93005; 93010; 96365; 96374; 99284; J1335; J1642; J1940

== ENCOUNTER 2025-01-20 12:27 | Emergency (ER) | payer OTHER, SELFPAY ==
[2024-12-20 11:04] VITALS: BMI 33.1
[2025-01-20] VITALS (16 sets, daily range): BP systolic 128–155; BP diastolic 58–71; PULSE 98–123; RESP 14–18; TEMP 36.8; O2SAT 97–100; BMI 31.5
--- NOTE | 2025-01-20 13:36 | DI.US.S_ITS ---
PROCEDURE: US PERIPH VENOUS LOW EXTREM BI INDICATIONS: swelling/redness bilateral legs TECHNIQUE: Real-time imaging, as well as color and pulse Doppler interrogation, were performed of the deep veins of both legs from the inguinal ligament to the popliteal fossa, with documentation of the visualized calf veins. COMPARISON: None. FINDINGS: Right: The common femoral, femoral, popliteal, and the visualized calf veins are normally compressible, and free of intraluminal thrombus. Color and pulse Doppler demonstrate normal phasic intravascular flow. There is normal augmentation response to distal compression maneuver. Left: The common femoral, femoral, popliteal, and the visualized calf veins are normally compressible, and free of intraluminal thrombus. Color and pulse Doppler demonstrate normal phasic intravascular flow. There is normal augmentation response to distal compression maneuver. IMPRESSION: No findings of deep venous thrombosis in either lower extremity. Note: Concordant preliminary findings given by the early childhood educator aide upon the completion of the examination to Dr. Irving at 3:30 p.m. on January 20, 2025. Dictated by: Ventura Denise M.D. on 01/20/2025 at 14:56 Approved by: Ventuar Denise M.D. on 01/20/2025 at 14:57
--- NOTE | 2025-01-20 13:36 | DI.RAD.S_ITS ---
PROCEDURE: XR CHEST 1V INDICATIONS: suspected sepsis TECHNIQUE: One view of the chest was acquired. COMPARISON: [facility], CR, XR CHEST FOR PICC 1V, 12/21/2024, 13:46. [facility], CR, XR CHEST 1V, 11/30/2024, 18:18. FINDINGS: Surgical changes and devices: Left upper extremity approach PICC tip projects over the high SVC.. Lungs and pleura: Lungs are clear. No pleural effusions or pneumothorax. Mediastinum: Mediastinal contours appear normal. Heart size is normal. Bones and chest wall: No suspicious bony lesions. Overlying soft tissues appear unremarkable. IMPRESSION: No acute cardiopulmonary abnormality is seen. Dictated by: Vishnu Adams M.D. on 01/20/2025 at 14:48 Approved by: Vishnu Adams M.D. on 01/20/2025 at 14:48
--- NOTE | 2025-01-20 13:42 | EKG_ITS ---
[facility] [address] [address] Test Date: 2025-01-20 Pat Name: Eric Fontenot Department: [facility] Room: Gender: Male Drafter Castings: ELSA : 1975 Requested By: Order Number: [id number] Reading MD: Edmond Darnell MD Measurements Intervals [place] Rate: 112 P: 51 ND: 168 QRS: 33 QRSD: 96 T: 43 QT: 342 QTc: 466 Interpretive Statements Sinus tachycardia Electronically Signed On 01-20-2025 14:10:18 PST by Edmond Darnell MD
--- NOTE | 2025-01-20 13:45 | PC.NURSE ---
Pt reports he is an alcoholic who is trying to taper down his daily drinking, pt's last drink approximately 0800. Physician aware. Will CIWA and treat as needed.
[2025-01-20 14:12] LABS: Add Manual Diff / Slide Review NO; Basophils Absolute Auto 0 /uL (0-100); Basophils Percent Auto 0.3 % (0-2); Eosinophils Absolute Auto 200 /uL (0-450); Eosinophils Percent Auto 2.9 % (2-4); Hematocrit 30.1 % (41-53); Lymphocytes Absolute Auto 1200 /uL (1100-4500); Lymphocytes Percent Auto 17.7 % (25-40); Mean Corpuscular HGB Conc 33.3 % (30-36); Mean Corpuscular Hemoglobin 27.5 PG (26-34); Mean Corpuscular Volume 82.3 fL (80-100); Monocytes Absolute Auto 900 /uL (0-900); Monocytes Percent Auto 13.8 % (3-14); Neutrophils Absolute Auto 4500 /uL (1500-7000); Neutrophils Percent Auto 65.3 % (50-75); Platelet Count 91 X10^3/uL (150-400); Red Blood Cell Count 3.66 X10^6/uL (4.5-5.9); Red Cell Distribution Width 20.2 % (11.6-14.8); White Blood Cell Count 6.9 X10^3/uL (4.5-11.0)
[2025-01-20 14:18] LABS: Alanine Aminotransferase 24 IU/L (<50); Albumin 4.2 g/dL (3.5-5.0); Alkaline Phosphatase 166 U/L (38-126); Aspartate Aminotransferase 58 IU/L (17-59); BUN Creatinine Ratio 8.9 (6-22); Bilirubin Total 2.5 mg/dL (0.2-1.3); Blood Urea Nitrogen 8 mg/dL (9-20); Calcium 8.8 mg/dL (8.4-10.2); Carbon Dioxide 22 mmol/L (22-32); Chloride 106 mmol/L (98-107); Estimated Glomerular Filt Rate > 60 mL/min (>60); Globulin 4.2 g/dL (1.7-4.1); Glucose 129 mg/dL (70-100); HEMOLYSIS < 15 (0-50); Lipase 107 U/L (23-300); Potassium 4.1 mmol/L (3.4-5.1); Sodium 140 mmol/L (137-145); Total Protein 8.4 g/dL (6.3-8.2)
[2025-01-20 14:19] LABS: Lactate (Lactic Acid) 2.4 mmol/L (0.7-2.1)
[2025-01-20] MEDS: SODIUM CHLORIDE 0.9% 1,000 ML 1000 ML IV ×2 (14:29→17:48)
--- NOTE | 2025-01-20 14:31 | DI.RAD.S_ITS ---
PROCEDURE: XR FOOT RT MIN 3V INDICATIONS: r/o osteo TECHNIQUE: 3 views of the foot were acquired. COMPARISON: [facility], , XR FOOT RT MIN 3V, 01/11/2025, 20:13. FINDINGS: Bones: No fractures or dislocations. No suspicious bony lesions. Soft tissues: No tibiotalar joint effusion. Achilles tendon appears normal. IMPRESSION: No obvious bony erosions or soft tissue injuries are seen to suggest osteomyelitis. However, x-ray is not definitive to rule out osteomyelitis. If there is a high index of suspicion, recommend MRI of the right foot for further assessment. Dictated by: Drew Chaudhry M.D. on 01/20/2025 at 16:12 Approved by: Drew Chaudhry M.D. on 01/20/2025 at 16:14
[2025-01-20 14:35] LABS: Procalcitonin 0.056 ng/mL (<0.5)
--- NOTE | 2025-01-20 14:35 | PC.NURSE ---
Pt arrives with PICC line in upper L-arm, placed by the infusion center at [facility]. Patent, flushes well.
[2025-01-20 14:39] LABS: Anisocytosis 1+; Platelet Estimate Adequate on smear
--- NOTE | 2025-01-20 14:49 | ED.SKABFB ---
HPI - Skin/Abscess/Foreign Bdy <Candelario Irving DO - Last Filed: 01/20/25 17:00> General Chief complaint: Skin/Abscess/Foreign Body Stated complaint: Pain/swelling in feet,missed antibiotics yesterday Time Seen by Provider: 01/20/25 14:49 Source: patient and EMS Mode of arrival: EMS Limitations: no limitations History of Present Illness HPI narrative: 49-year-old male with a history of chronic foot ulcer with osteomyelitis, alcohol abuse, hypertension, comes into the ED from home for evaluation of persistent right foot wound, states this has been ongoing for several months, is supposed to get IV infusions of antibiotics but has missed his last doses the past 2 days, states that he does drink a proximally 4-8 beers a day but has been trying to cut back, patient states last drink was at around 11:30 a.m. a.m. today. States he does have an appointment with wound care. He denies any new symptoms such as headache visual disturbances chest pain shortness breath fever chills nausea vomiting abdominal pain or any other GI/ symptoms. Patient states that he did not go to his infusion appointments because he just was ?not feeling it. Patient states he would like to talk to social work here for his history of alcohol abuse Related Data Home Medications Medication Instructions Recorded Confirmed pregabalin 75 mg capsule 75 mg PO TID 09/26/22 12/20/24 Previous Rx's Medication Instructions Recorded furosemide 40 mg tablet (Lasix) 40 mg PO DAILY #30 tabs 11/18/24 spironolactone 25 mg tablet 25 mg PO DAILY #30 tabs 11/18/24 ertapenem 1 gram solution for 1 g IM Q24H #10 ea 01/05/25 injection lactulose 20 gram/30 mL oral 10 g (15 mL) PO DAILY 30 days 01/05/25 solution #1,200 mL pregabalin 50 mg capsule 100 mg (2 x 50 mg) PO TID 30 days 01/05/25 #90 caps furosemide 40 mg tablet (Lasix) 40 mg PO DAILY #30 tabs 01/11/25 spironolactone 25 mg tablet 25 mg PO DAILY #30 tabs 01/11/25 Allergies Allergy/AdvReac Type Severity Reaction Status Date / Time No Known Drug Allergies Allergy Verified 11/30/24 18:14 Review of Systems <DO Lavonne Dean Filed: 01/20/25 17:00> Review of Systems Narrative: General: Denies fever, chills, weight loss HEENT: Denies headache, eye drainage, eye irritation, head trauma, sore throat, voice change Cardiovascular: Denies any chest pain, palpitations, shortness of breath, tachycardia Respiratory: Denies any shortness of breath, cough, wheeze, stridor GI/: Denies any abdominal pain, nausea, vomiting, diarrhea, bright red blood per rectum, melanotic stools, urinary frequency, urinary retention, dysuria, hematuria MSK: Bilateral lower extremity redness swelling worse of the right foot with history of chronic ulceration Skin: Denies any rashes, lesions, discoloration Neuro: Denies any headache, lightheadedness, dizziness, fainting, weakness Psych: Denies SI/HI Patient History <Candelario Aristides - Last Filed: 01/20/25 17:00> Medical History Hepatosplenomegaly Portal hypertension Hepatosplenomegaly Foot osteomyelitis, right Neuropathic foot ulcer Decreased libido Erectile dysfunction Alcohol abuse (~2017) Low back pain (Unknown) Polyneuropathy (Unknown) Acne (Unknown) Hypertension (2004) Essential hypertension (09/12/16) Surgical History H/O surgical amputation of finger Hx of cholecystectomy (2001) Family History Grandmother Mental health problem Grandfather Cancer Grandmother Cancer Mother History of back problems Father Amputation leg, bilat Social History household members: spouse and family Smoking Status: Current every day smoker Tobacco: How many years used: 1 Smokeless tobacco user: chewing tobacco (many, many years) alcohol intake: current substance use type: does not use Smoking Status: Current every day smoker tobacco type: cigarettes and smokeless tobacco alcohol intake frequency: 0-2 drinks per day Alcohol type: beer Exam <Candelario Irving DO - Last Filed: 01/20/25 17:00> Narrative Exam Narrative: General: Cooperative, comfortable, well-developed, not in acute distress HEENT: Normocephalic, atraumatic, PERRLA, normal sclera, eyelids normal, Neck: Active full range of motion, atraumatic Chest: Normal to inspection, negative crepitus, no overlying erythema ecchymosis Respiratory: Normal respiratory effort, not in acute respiratory distress, clear to auscultation bilaterally negative cough, wheeze, tachypnea, rhonchi, rales Cardiology: Regular rate rhythm negative gallop, murmur, rubs GI/: Normal to inspection, soft, nonrigid, no tenderness to palpation, exam deferred MSK: Bilateral lower extremity erythema swelling +3 pitting edema, chronic foot ulceration noted to the plantar aspect of the right foot. Neurovascularly intact, patient with history of neuropathy is at baseline Skin: No rashes lesions noted Neuro: Alert awake oriented x3, moves all 4 extremities spontaneously, cranial nerves intact, able to answer all questions appropriately follows commands appropriately Psych: Cooperative, negative suicidal or homicidal ideations Initial Vital Signs Initial Vital Signs: Vital Signs Temperature 98.3 F 01/20/25 12:29 Pulse Rate 123 H 01/20/25 12:29 Respiratory Rate 18 01/20/25 12:29 Blood Pressure 155/70 H 01/20/25 12:29 Pulse Oximetry 100 01/20/25 12:29 Oxygen Delivery Method Room Air 01/20/25 12:29 <Milton Pardo MD - Last Filed: 01/21/25 02:50> Initial Vital Signs Initial Vital Signs: Vital Signs Temperature 98.3 F 01/20/25 12:29 Pulse Rate 123 H 01/20/25 12:29 Respiratory Rate 18 01/20/25 12:29 Blood Pressure 155/70 H 01/20/25 12:29 Pulse Oximetry 100 01/20/25 12:29 Oxygen Delivery Method Room Air 01/20/25 12:29 Course <Candelario Irving DO - Last Filed: 01/20/25 17:00> Orders Ordered: ED Orders 01/20/25 18:55 Lactate (Lactic Acid) Stat Discontinued Medications Sodium Chloride (Normal Saline 0.9%) 1,000 mls @ 1,000 mls/hr IV BOLUS ONE Stop: 01/20/25 14:35 Last Infusion: 01/20/25 15:54 Dose: Infused Documented By: Admin: 01/20/25 14:29 Dose: 1,000 mls/hr Documented By: INGRID Ertapenem 1 gm/ Sodium (Chloride) 100 mls @ 200 mls/hr IV NOW ONE Stop: 01/20/25 15:02 Last Infusion: 01/20/25 15:54 Dose: Infused Documented By: Admin: 01/20/25 15:13 Dose: 200 mls/hr Documented By: NADINE Sodium Chloride (Normal Saline 0.9%) 1,000 mls @ 1,000 mls/hr IV BOLUS ONE Stop: 01/20/25 18:45 Last Infusion: 01/20/25 19:00 Dose: Infused Documented By: Admin: 01/20/25 17:48 Dose: 1,000 mls/hr Documented By: INGRID Lorazepam (Lorazepam 2 Mg/Ml Inj) 1 mg IV NOW ONE Stop: 01/20/25 14:53 Last Admin: 01/20/25 15:13 Dose: 1 mg Documented By: NADINE Lorazepam (Lorazepam 2 Mg/Ml Inj) 1 mg IV NOW ONE Stop: 01/20/25 19:01 Last Admin: 01/20/25 19:06 Dose: 1 mg Documented By: INGRID Ondansetron HCl (Ondansetron 4 Mg/2 Ml Inj) 4 mg IV NOW PRN PRN Reason: Nausea And Vomiting Ondansetron HCl (Ondansetron 4 Mg Odt) 4 mg SL NOW PRN PRN Reason: Nausea And Vomiting Vital Signs Vital signs: Vital Signs - 8 hr 01/20/25 19:00 01/20/25 19:00 01/20/25 19:30 Pulse Rate 109 H 100 H Respiratory Rate 14 Blood Pressure 136/61 Pulse Oximetry 97 97 Oxygen Delivery Method Room Air 01/20/25 19:30 Pulse Rate Respiratory Rate Blood Pressure 128/59 L Pulse Oximetry Oxygen Delivery Method <Milton Pardo MD - Last Filed: 01/21/25 02:50> Orders Ordered: ED Orders 01/20/25 18:55 Lactate (Lactic Acid) Stat Discontinued Medications Sodium Chloride (Normal Saline 0.9%) 1,000 mls @ 1,000 mls/hr IV BOLUS ONE Stop: 01/20/25 14:35 Last Infusion: 01/20/25 15:54 Dose: Infused Documented By: Admin: 01/20/25 14:29 Dose: 1,000 mls/hr Documented By: INGRID Ertapenem 1 gm/ Sodium (Chloride) 100 mls @ 200 mls/hr IV NOW ONE Stop: 01/20/25 15:02 Last Infusion: 01/20/25 15:54 Dose: Infused Documented By: Admin: 01/20/25 15:13 Dose: 200 mls/hr Documented By: NADINE Sodium Chloride (Normal Saline 0.9%) 1,000 mls @ 1,000 mls/hr IV BOLUS ONE Stop: 01/20/25 18:45 Last Infusion: 01/20/25 19:00 Dose: Infused Documented By: Admin: 01/20/25 17:48 Dose: 1,000 mls/hr Documented By: INGRID Lorazepam (Lorazepam 2 Mg/Ml Inj) 1 mg IV NOW ONE Stop: 01/20/25 14:53 Last Admin: 01/20/25 15:13 Dose: 1 mg Documented By: NADINE Lorazepam (Lorazepam 2 Mg/Ml Inj) 1 mg IV NOW ONE Stop: 01/20/25 19:01 Last Admin: 01/20/25 19:06 Dose: 1 mg Documented By: INGRID Ondansetron HCl (Ondansetron 4 Mg/2 Ml Inj) 4 mg IV NOW PRN PRN Reason: Nausea And Vomiting Ondansetron HCl (Ondansetron 4 Mg Odt) 4 mg SL NOW PRN PRN Reason: Nausea And Vomiting Vital Signs Vital signs: Vital Signs - 8 hr 01/20/25 19:00 01/20/25 19:00 01/20/25 19:30 Pulse Rate 109 H 100 H Respiratory Rate 14 Blood Pressure 136/61 Pulse Oximetry 97 97 Oxygen Delivery Method Room Air 01/20/25 19:30 Pulse Rate Respiratory Rate Blood Pressure 128/59 L Pulse Oximetry Oxygen Delivery Method MDM - Skin/Abscess/Foreign Bdy <Candelario Irving DO - Last Filed: 01/20/25 17:00> Differential Diagnosis Differential diagnosis: Likely other (Chronic foot ulcer, alcohol abuse, alcohol withdrawal,) Lab Data 01/20/25 13:15 01/20/25 13:15 Labs: Lab Results 01/20/25 01/20/25 01/20/25 Range/Units 13:15 15:00 15:50 WBC 6.9 (4.5-11.0) X10^3/uL RBC 3.66 L (4.5-5.9) X10^6/uL Hgb 10.0 L (13.5-17.5) g/dL Hct 30.1 L (41-53) % MCV 82.3 (80-100) fL MCH 27.5 (26-34) PG MCHC 33.3 (30-36) % RDW 20.2 H (11.6-14.8) % Plt Count 91 L (150-400) X10^3/uL Neut % (Auto) 65.3 (50-75) % Lymph % (Auto) 17.7 L (25-40) % [place] % (Auto) 13.8 (3-14) % Eos % (Auto) 2.9 (2-4) % Baso % (Auto) 0.3 (0-2) % Neut # (Auto) 4500 (9574-4599) /uL Lymph # (Auto) 1200 (6502-3304) /uL [place] # (Auto) 900 (0-900) /uL Eos # (Auto) 200 (0-450) /uL Baso # (Auto) 0 (0-100) /uL Platelet Estimate Adequate on smear RBC Morphology See below Anisocytosis 1+ H PT 16.7 H (9.4-12.5) SECONDS INR 1.5 H (0.9-1.3) APTT 75 H* (25.1-36.5) SECONDS Sodium 140 (137-145) mmol/L Potassium 4.1 (3.4-5.1) mmol/L Chloride 106 (98-107) mmol/L Carbon Dioxide 22 (22-32) mmol/L BUN 8 L (9-20) mg/dL Creatinine 0.90 (0.66-1.25) mg/dL Estimated GFR > 60 (>60) mL/min BUN/Creatinine Ratio 8.9 (6-22) Glucose 129 H (70-100) mg/dL Lactate 2.4 H (0.7-2.1) mmol/L Calcium 8.8 (8.4-10.2) mg/dL Total Bilirubin 2.5 H (0.2-1.3) mg/dL AST 58 (17-59) IU/L ALT 24 (<50) IU/L Alkaline Phosphatase 166 H (38-126) U/L Total Protein 8.4 H (6.3-8.2) g/dL Albumin 4.2 (3.5-5.0) g/dL Globulin 4.2 H (1.7-4.1) g/dL Albumin/Globulin Ratio 1.0 (1.0-2.8) Lipase 107 (23-300) U/L Procalcitonin 0.056 (<0.5) ng/mL Urine RBC None seen (0-5/HPF) Urine WBC 0-1/hpf (0-5/HPF) Ur Squamous Epith Cells 0-1 /hpf (0-5/HPF) Urine Bacteria Occasional (0-1) (None) Ur Culture Indicated? Cult not indicated Vol Urine Centrifuged 10ml (spun) Ethyl Alcohol 176 H ( - 10) mg/dL 01/20/25 01/20/25 Range/Units 15:51 18:55 WBC (4.5-11.0) X10^3/uL RBC (4.5-5.9) X10^6/uL Hgb (13.5-17.5) g/dL Hct (41-53) % MCV (80-100) fL MCH (26-34) PG MCHC (30-36) % RDW (11.6-14.8) % Plt Count (150-400) X10^3/uL Neut % (Auto) (50-75) % Lymph % (Auto) (25-40) % [place] % (Auto) (3-14) % Eos % (Auto) (2-4) % Baso % (Auto) (0-2) % Neut # (Auto) (6062-3760) /uL Lymph # (Auto) (7953-7913) /uL [place] # (Auto) (0-900) /uL Eos # (Auto) (0-450) /uL Baso # (Auto) (0-100) /uL Platelet Estimate RBC Morphology Anisocytosis PT (9.4-12.5) SECONDS INR (0.9-1.3) APTT (25.1-36.5) SECONDS Sodium (137-145) mmol/L Potassium (3.4-5.1) mmol/L Chloride (98-107) mmol/L Carbon Dioxide (22-32) mmol/L BUN (9-20) mg/dL Creatinine (0.66-1.25) mg/dL Estimated GFR (>60) mL/min BUN/Creatinine Ratio (6-22) Glucose (70-100) mg/dL Lactate 3.0 H 1.6 (0.7-2.1) mmol/L Calcium (8.4-10.2) mg/dL Total Bilirubin (0.2-1.3) mg/dL AST (17-59) IU/L ALT (<50) IU/L Alkaline Phosphatase (38-126) U/L Total Protein (6.3-8.2) g/dL Albumin (3.5-5.0) g/dL Globulin (1.7-4.1) g/dL Albumin/Globulin Ratio (1.0-2.8) Lipase (23-300) U/L Procalcitonin (<0.5) ng/mL Urine RBC (0-5/HPF) Urine WBC (0-5/HPF) Ur Squamous Epith Cells (0-5/HPF) Urine Bacteria (None) Ur Culture Indicated? Vol Urine Centrifuged Ethyl Alcohol ( - 10) mg/dL Urine Dip Bedside Urine Glucose Negative Bedside Urine Bilirubin - Negative Bedside Urine Ketone - Negative Urine Specific [place] 1.015 Bedside Urine Occult Blood - Negative Bedside Urine pH 7.0 Bedside Urine Protein +/- 15 Bedside Urine Urobilinogen +/- 1mg Bedside Urine Nitrite - Negative Bedside Urine Leukocytes - Negative Esterase Imaging Data Chest x-ray: Radiologist's Impression: [address] [address] XRay Report Signed Patient: Eric Fontenot MR#: [id number] : 1975 Acct:[id number] Age/Sex: 49 / M Date of Service: 01/20/25 Loc: ED Accession Number: [id number] Procedure: XR chest 1V Ordering Provider: Candelario Irving D.O. PROCEDURE: XR CHEST 1V INDICATIONS: suspected sepsis TECHNIQUE: One view of the chest was acquired. COMPARISON: [facility], CR, XR CHEST FOR PICC 1V, 12/21/2024, 13:46. [facility], CR, XR CHEST 1V, 11/30/2024, 18:18. FINDINGS: Surgical changes and devices: Left upper extremity approach PICC tip projects over the high SVC.. Lungs and pleura: Lungs are clear. No pleural effusions or pneumothorax. Mediastinum: Mediastinal contours appear normal. Heart size is normal. Bones and chest wall: No suspicious bony lesions. Overlying soft tissues appear unremarkable. IMPRESSION: No acute cardiopulmonary abnormality is seen. Extremity x-ray #1: Radiologist's Impression: [address] [address] XRay Report Signed Patient: Eric Fontenot MR#: [id number] : 1975 Acct:[id number] Age/Sex: 49 / M Date of Service: 01/20/25 Loc: ED Accession Number: [id number] Procedure: XR foot RT min 3V Ordering Provider: Candelario Irving D.O. PROCEDURE: XR FOOT RT MIN 3V INDICATIONS: r/o osteo TECHNIQUE: 3 views of the foot were acquired. COMPARISON: [facility], , XR FOOT RT MIN 3V, 01/11/2025, 20:13. FINDINGS: Bones: No fractures or dislocations. No suspicious bony lesions. Soft tissues: No tibiotalar joint effusion. Achilles tendon appears normal. IMPRESSION: No obvious bony erosions or soft tissue injuries are seen to suggest osteomyelitis. However, x-ray is not definitive to rule out osteomyelitis. If there is a high index of suspicion, recommend MRI of the right foot for further assessment. US - DVT: Radiologist's Impression: [address] [address] Ultrasound Report Signed Patient: Eric Fontenot MR#: [id number] : 1975 Acct:[id number] Age/Sex: 49 / M Date of Service: 01/20/25 Loc: ED Accession Number: [id number] Procedure: US periph venous low extrem bi Ordering Provider: Candelario Irving D.O. PROCEDURE: US PERIPH VENOUS LOW EXTREM BI INDICATIONS: swelling/redness bilateral legs TECHNIQUE: Real-time imaging, as well as color and pulse Doppler interrogation, were performed of the deep veins of both legs from the inguinal ligament to the popliteal fossa, with documentation of the visualized calf veins. COMPARISON: None. FINDINGS: Right: The common femoral, femoral, popliteal, and the visualized calf veins are normally compressible, and free of intraluminal thrombus. Color and pulse Doppler demonstrate normal phasic intravascular flow. There is normal augmentation response to distal compression maneuver. Left: The common femoral, femoral, popliteal, and the visualized calf veins are normally compressible, and free of intraluminal thrombus. Color and pulse Doppler demonstrate normal phasic intravascular flow. There is normal augmentation response to distal compression maneuver. IMPRESSION: No findings of deep venous thrombosis in either lower extremity. ECG Data Interpretation: EKG interpreted by ED physician sinus tachycardia 112 beats per minute QTC [address] changes no STEMI MDM Narrative Medical decision making narrative: 49-year-old male with a history of alcoholism chronic right foot ulceration osteomyelitis comes into the ED from home for evaluation of persistent/worsening pain swelling, he does have a PICC line in his missed his last 2 doses of antibiotics at the infusion clinic. Patient also requesting talk to social work for his history of alcohol abuse. Patient had lab work imaging performed here in the emergency department ultrasound negative for DVT, patient without leukocytosis, patient noted to have elevated alcohol level, however patient is not in acute withdrawal did give 1 mg IV Ativan given patient stating that he feels like he might start going into withdrawal. Patient noted to have elevated PT/PTT near baseline most likely secondary to history of alcoholic cirrhosis. Patient has a long past medical history of noncompliance of his medications, he was seen by social work here to help him with rehabilitation for his alcohol abuse as well as getting to his infusion appointments for his antibiotics as well as his wound care appointments. Review of records shows patient takes ertapenem for his infusions we will give dose here. <Milton Pardo MD - Last Filed: 01/21/25 02:50> Lab Data Labs: Lab Results 01/20/25 01/20/25 01/20/25 Range/Units 13:15 15:00 15:50 WBC 6.9 (4.5-11.0) X10^3/uL RBC 3.66 L (4.5-5.9) X10^6/uL Hgb 10.0 L (13.5-17.5) g/dL Hct 30.1 L (41-53) % MCV 82.3 (80-100) fL MCH 27.5 (26-34) PG MCHC 33.3 (30-36) % RDW 20.2 H (11.6-14.8) % Plt Count 91 L (150-400) X10^3/uL Neut % (Auto) 65.3 (50-75) % Lymph % (Auto) 17.7 L (25-40) % [place] % (Auto) 13.8 (3-14) % Eos % (Auto) 2.9 (2-4) % Baso % (Auto) 0.3 (0-2) % Neut # (Auto) 4500 (6836-6632) /uL Lymph # (Auto) 1200 (9454-0271) /uL [place] # (Auto) 900 (0-900) /uL Eos # (Auto) 200 (0-450) /uL Baso # (Auto) 0 (0-100) /uL Platelet Estimate Adequate on smear RBC Morphology See below Anisocytosis 1+ H PT 16.7 H (9.4-12.5) SECONDS INR 1.5 H (0.9-1.3) APTT 75 H* (25.1-36.5) SECONDS Sodium 140 (137-145) mmol/L Potassium 4.1 (3.4-5.1) mmol/L Chloride 106 (98-107) mmol/L Carbon Dioxide 22 (22-32) mmol/L BUN 8 L (9-20) mg/dL Creatinine 0.90 (0.66-1.25) mg/dL Estimated GFR > 60 (>60) mL/min BUN/Creatinine Ratio 8.9 (6-22) Glucose 129 H (70-100) mg/dL Lactate 2.4 H (0.7-2.1) mmol/L Calcium 8.8 (8.4-10.2) mg/dL Total Bilirubin 2.5 H (0.2-1.3) mg/dL AST 58 (17-59) IU/L ALT 24 (<50) IU/L Alkaline Phosphatase 166 H (38-126) U/L Total Protein 8.4 H (6.3-8.2) g/dL Albumin 4.2 (3.5-5.0) g/dL Globulin 4.2 H (1.7-4.1) g/dL Albumin/Globulin Ratio 1.0 (1.0-2.8) Lipase 107 (23-300) U/L Procalcitonin 0.056 (<0.5) ng/mL Urine RBC None seen (0-5/HPF) Urine WBC 0-1/hpf (0-5/HPF) Ur Squamous Epith Cells 0-1 /hpf (0-5/HPF) Urine Bacteria Occasional (0-1) (None) Ur Culture Indicated? Cult not indicated Vol Urine Centrifuged 10ml (spun) Ethyl Alcohol 176 H ( - 10) mg/dL 01/20/25 01/20/25 Range/Units 15:51 18:55 WBC (4.5-11.0) X10^3/uL RBC (4.5-5.9) X10^6/uL Hgb (13.5-17.5) g/dL Hct (41-53) % MCV (80-100) fL MCH (26-34) PG MCHC (30-36) % RDW (11.6-14.8) % Plt Count (150-400) X10^3/uL Neut % (Auto) (50-75) % Lymph % (Auto) (25-40) % [place] % (Auto) (3-14) % Eos % (Auto) (2-4) % Baso % (Auto) (0-2) % Neut # (Auto) (5204-2074) /uL Lymph # (Auto) (8856-4914) /uL [place] # (Auto) (0-900) /uL Eos # (Auto) (0-450) /uL Baso # (Auto) (0-100) /uL Platelet Estimate RBC Morphology Anisocytosis PT (9.4-12.5) SECONDS INR (0.9-1.3) APTT (25.1-36.5) SECONDS Sodium (137-145) mmol/L Potassium (3.4-5.1) mmol/L Chloride (98-107) mmol/L Carbon Dioxide (22-32) mmol/L BUN (9-20) mg/dL Creatinine (0.66-1.25) mg/dL Estimated GFR (>60) mL/min BUN/Creatinine Ratio (6-22) Glucose (70-100) mg/dL Lactate 3.0 H 1.6 (0.7-2.1) mmol/L Calcium (8.4-10.2) mg/dL Total Bilirubin (0.2-1.3) mg/dL AST (17-59) IU/L ALT (<50) IU/L Alkaline Phosphatase (38-126) U/L Total Protein (6.3-8.2) g/dL Albumin (3.5-5.0) g/dL Globulin (1.7-4.1) g/dL Albumin/Globulin Ratio (1.0-2.8) Lipase (23-300) U/L Procalcitonin (<0.5) ng/mL Urine RBC (0-5/HPF) Urine WBC (0-5/HPF) Ur Squamous Epith Cells (0-5/HPF) Urine Bacteria (None) Ur Culture Indicated? Vol Urine Centrifuged Ethyl Alcohol ( - 10) mg/dL Urine Dip Bedside Urine Glucose Negative Bedside Urine Bilirubin - Negative Bedside Urine Ketone - Negative Urine Specific [place] 1.015 Bedside Urine Occult Blood - Negative Bedside Urine pH 7.0 Bedside Urine Protein +/- 15 Bedside Urine Urobilinogen +/- 1mg Bedside Urine Nitrite - Negative Bedside Urine Leukocytes - Negative Esterase MDM Narrative Medical decision making narrative: 49-year-old male with a history of alcoholism chronic right foot ulceration osteomyelitis comes into the ED from home for evaluation of persistent/worsening pain swelling, he does have a PICC line in his missed his last 2 doses of antibiotics at the infusion clinic. Patient also requesting talk to social work for his history of alcohol abuse. Patient had lab work imaging performed here in the emergency department ultrasound negative for DVT, patient without leukocytosis, patient noted to have elevated alcohol level, however patient is not in acute withdrawal did give 1 mg IV Ativan given patient stating that he feels like he might start going into withdrawal. Patient noted to have elevated PT/PTT near baseline most likely secondary to history of alcoholic cirrhosis. Patient has a long past medical history of noncompliance of his medications, he was seen by social work here to help him with rehabilitation for his alcohol abuse as well as getting to his infusion appointments for his antibiotics as well as his wound care appointments. Review of records shows patient takes ertapenem for his infusions we will give dose here. 01/20/25Cuong Thompson. Sign-out from Dr. Irving. 49-year-old male with history of chronic alcohol use, has right foot chronic ulcer for which he is receiving PICC line infusions of IV ertapenem, noncompliant with follow up doses due to ongoing alcohol use, requests detox services. customer services coordinator consulted. He did receive his IV ertapenem dose. Ultrasound legs negative for DVT. Lactate initially 2.4 on repeat was 3.0. He received further IV fluids, repeat lactate acid level is pending. Assumed interim care. Repeat lactate normal. Patient would like to go home. We will travel home by cab, his is at home. He was given outpatient detox services resources. Discharged home. Return precautions discussed. Discharge Plan Departure Patient Disposition: Home Clinical Impression: Alcohol intoxication, Chronic foot ulcer Instructions: DI for Wound Infection Activity Restrictions/Additional Instructions: Please follow-up with your primary care doctor and go to your scheduled appointments for your wound care and infusions for your antibiotic, please follow up with Orthopedic surgery as well for your chronic foot ulcer Please read the discharge instructions sheet carefully and bring all papers to all doctor follow-up visits, as it may contain information that your doctor may want to see. Disease processes change and evolve, if your symptoms worsen or if you develop any new symptoms that are concerning to you please return for evaluation. Your evaluation today does not show any evidence of any life-threatening/serious illnesses requiring admission to the hospital or surgery. Please follow-up with your doctor for re-evaluation in approximately 1 day. Seek immediate medical attention for any worrisome symptoms. *If you do not have a primary care provider please contact the [facility] Resource line at [phone]. They will ask some questions about your medical history and help get you set up with a doctor in the community. Prescriptions: No Action pregabalin 75 mg capsule 75 mg PO TID Patient Comments: TAKE ONE CAPSULE BY MOUTH THREE TIMES DAILY furosemide [Lasix] 40 mg tablet 40 mg PO DAILY Qty: 30 0RF spironolactone 25 mg tablet 25 mg PO DAILY Qty: 30 0RF ertapenem 1 gram recon soln 1 g IM Q24H Qty: 10 0RF lactulose 20 gram/30 mL Solution 10 g PO DAILY 30 Days Qty: 1200 0RF pregabalin 50 mg Capsule 100 mg PO TID 30 Days Qty: 90 0RF furosemide [Lasix] 40 mg tablet 40 mg PO DAILY Qty: 30 0RF spironolactone 25 mg tablet 25 mg PO DAILY Qty: 30 0RF Referrals: Mario Cutler MD [Primary Care Provider] - Stand Alone Forms: Patient Portal/API/Survey
[2025-01-20 14:51] LABS: Ethanol (ETOH) 176 mg/dL
[2025-01-20] MEDS: LORazepam 2 MG/ML INJ 1 MG IV ×2 (15:13→19:06)
[2025-01-20] MEDS: ERTAPENEM 1 GM in SODIUM CHLORIDE 0.9% 100 ML IV (15:13)
[2025-01-20 15:15] LABS: INR 1.5 (0.9-1.3); Prothrombin Time 16.7 SECONDS (9.4-12.5)
[2025-01-20 15:20] LABS: PTT Partial Thromboplastin Tim 75 SECONDS (25.1-36.5)
[2025-01-20 15:41] LABS: Reflexed Lactate in 2 Hours Y
[2025-01-20 16:10] LABS: Bacteria Urine Occasional (0-1); Culture Indicated Urine Cult Not Indicated; RBC Urine None Seen (0-5/HPF); Squamous Epithelial Cell Urine 0-1 /HPF (0-5/HPF); Urine Volume 10mL (spun); WBC Urine 0-1/HPF (0-5/HPF)
--- NOTE | 2025-01-20 18:02 | CM.SWNOTE ---
ED ELIGIBILITY AND OCCUPANCY INTERVIEWER Assessment Note Patient is 49 y/o male who presents to ED via EMS due to concern for worsening pain and swelling in his right foot. Patient missed the last three doses of his antibiotics at infusion clinic. Patient's PCP is Dr. Mario Cutler, patient has [employer] Medicaid Insurance. Patient is a patient of the infusion clinic and wound care clinic. Patient has hx of chronic foot ulcer with osteomyelitis, ETOH use, Hypertension. Patient has PICC line for IV antibiotics ertapenem. ELIGIBILITY AND OCCUPANCY INTERVIEWER calls Infusion clinic and it is confirmed that patient missed his appt yesterday and Friday as well as Friday this week. Patient cancelled appt today as he went to the ED. It is reported that patient has a daily appt booked for 1:30pm through January, patient has scheduled appt for tomorrow. ELIGIBILITY AND OCCUPANCY INTERVIEWER reviews EMR, patient has BAL of 176, reports his last drink was at 11:30 am, patient endorses he drinks 4-8 beers daily but states he has been trying to cut back. ELIGIBILITY AND OCCUPANCY INTERVIEWER enters room to meet with patient, patient presents as A/Ox4. Patient endorses he has been feeling really rough. Patient endorses that the pain in his feet has been a barrier. Patient states he typically drives to outpatient appts but he has been in pain and states it is hard to do most things every day. Patient endorses passive SI, denies intent or plan. Patient endorses complex living situation with his spouse and mother in law who are also struggling with chronic medical conditions, patient states he would never do anything to hurt or kill himself. Patient endorses difficulty managing his multiple appts, ELIGIBILITY AND OCCUPANCY INTERVIEWER encourages patient to write them down and emphasizes the importance of going to outpatient appts to manage his symptoms so in the future he will not need to go to so many appts, patient indicates understanding. Patient states that sometimes he needs to use his 's FWW due to pain in his feet, patient endorses concern for managing this pain as well. In regards to patient's NAA, patient states that he has not engaged in any outpatient NAA, patient endorses interest but acknowledges difficulty with managing one more outpatient service. ELIGIBILITY AND OCCUPANCY INTERVIEWER provides patient with NAA outpatient resources & information for [facility] where patient was referred to previously. Patient endorses he has tried AA but it was not for him, patient endorses preference for [facility] group meetings and presents with intent to return to meetings. ELIGIBILITY AND OCCUPANCY INTERVIEWER discusses Medicaid transport to get to patient's outpatient appts, patient states he thinks this will be helpful on days that he feels that he cannot drive, as well as a good resource for his family as he is the only one in the household that drives. ELIGIBILITY AND OCCUPANCY INTERVIEWER provides patient with contact information for [facility] Medicaid transport. ELIGIBILITY AND OCCUPANCY INTERVIEWER provides DME resource information and encourages patient to go to [employer] to seeking equipment that will help with ambulation. With consent from patient, ELIGIBILITY AND OCCUPANCY INTERVIEWER calls PCP Dr. Cutler's office and confirms that patient has a PCP appt for 01/31/25 and it is reported that patient is on probation with PCP clinic and if he misses appt he will no longer be able to see provider. ELIGIBILITY AND OCCUPANCY INTERVIEWER informs patient of this appt and provides him with printed out copy of patient's appt information and encourages patient to go to appt and set up medicaid transport for appt. Plan: patient to d/c to home upon medical clearance, patient will meed taxi voucher given time of day of d/c, patient to f/u with outpatient infusion and wound care appts, patient to f/u with PCP and patient to f/u with several resources provided. REYNALDO PayneSW
[2025-01-20 19:14] LABS: Lactate (Lactic Acid) 1.6 mmol/L (0.7-2.1)
== END 2025-01-20 20:01 | disposition home or self-care (01) ==
PROVIDERS: Student in an Organized Health Care Education/Training Program; Emergency Provider Emergency Medicine; PCP Family Medicine
DX: L97.511 Non-pressure chronic ulcer of other part of right foot limited to breakdown of skin (principal); F10.129 Alcohol abuse with intoxication, unspecified; R00.0 Tachycardia, unspecified
CPT/HCPCS: 36415; 71045; 73630; 80053; 80320; 81003; 81015; 83605; 83690; 84145; 85025; 85610; 85730; 87040; 93005; 93970; 96361; 96365; 96375; 96376; 99284; J1335; J2060

== ENCOUNTER → 2025-02-01 14:39 | Outpatient (CLI) | payer OTHER, SELFPAY ==
[2024-12-20 11:04] VITALS: BMI 33.1
== END ==
PROVIDERS: PCP Family Medicine; Referring Provider Internal Medicine; Visit Provider Surgery
DX: G57.83 Other specified mononeuropathies of bilateral lower limbs (principal); L97.512 Non-pressure chronic ulcer of other part of right foot with fat layer exposed; L97.422 Non-pressure chronic ulcer of left heel and midfoot with fat layer exposed; M86.171 Other acute osteomyelitis, right ankle and foot; R20.8 Other disturbances of skin sensation; L53.8 Other specified erythematous conditions; R60.0 Localized edema; L84 Corns and callosities; R23.4 Changes in skin texture; F10.20 Alcohol dependence, uncomplicated
CPT/HCPCS: 11042; 99203; 99213

== ENCOUNTER → 2025-02-10 13:30 | Oncology outpatient (ONC) | payer OTHER, SELFPAY ==
[2024-12-20 11:04] VITALS: BMI 33.1
[2025-01-06] MEDS: ERTAPENEM 1 GM in SODIUM CHLORIDE 0.9% 100 ML IV (12:42)
[2025-01-06 13:37] VITALS: BP 117/64; PULSE 98; RESP 16; TEMP 36.5; O2SAT 100
[2025-01-07] MEDS: ERTAPENEM 1 GM in SODIUM CHLORIDE 0.9% 100 ML IV (12:40)
[2025-01-07] MEDS: SODIUM CHLORIDE 0.9% FLUSH 10 ML IV (13:12)
[2025-01-09] MEDS: ERTAPENEM 1 GM in SODIUM CHLORIDE 0.9% 100 ML IV (13:55)
[2025-01-09 13:56] VITALS: BP 130/69; PULSE 87; TEMP 37.4; O2SAT 97
--- NOTE | 2025-01-10 09:07 | ONC.SCHED ---
lvm: advised patient of 1:00 infusion appt in acute care today and tomorrow in Infusion Room at 1:00
[2025-01-10] MEDS: ERTAPENEM 1 GM in SODIUM CHLORIDE 0.9% 100 ML IV (12:31)
[2025-01-10 12:32] VITALS: BP 150/87; PULSE 128; RESP 16; TEMP 37.6; O2SAT 99
[2025-01-11 14:43] VITALS: BP 133/68; PULSE 99; RESP 16; TEMP 37.1; O2SAT 100
[2025-01-11] MEDS: ERTAPENEM 1 GM in SODIUM CHLORIDE 0.9% 100 ML IV (15:20)
--- NOTE | 2025-01-11 16:02 | PC.NURSE ---
1435 Called ER and spoke with Zaida Crum RN, Patient is in waiting area of ER and still needs to be seen by provider. He has not had labs they need drawn yet, . Patient was also scheduled here at infusion today 01/11/25 for daily IV Ertapenem, He is also due today for a lab draw and dsg changed per Antibiotic Infusion Orders. Asked Zaida Crum if it would help for us to bring patient over to infusion and draw labs, give his antibiotic infusion, change dsg; and then return to ER waiting or ER room if available. ED in agreement that would be helpful for them. 1600 Left Arm PICC line dsg changed, Labs and 1st set of blood cx's obtained, PICC line Hep-Locked, R FA #18 GA PIV placed/saline locked & 2nd set Blood CX obtained - PIV to remain in place as patient is returning to ER. Report to be called/given by RN to ER nurse when returning patient to ER waiting.
[2025-01-11 16:04] VITALS: BP 139/71; PULSE 104; RESP 18; TEMP 37.4; O2SAT 98
--- NOTE | 2025-01-11 16:46 | PC.NURSE ---
3670 Patient returned to ER waiting room via wheelchair w/ walker. Report to Arelis HILLS, Vitals printed to ER printer [id number].
[2025-01-12 13:42] VITALS: BP 134/82; PULSE 95; RESP 18; TEMP 37; O2SAT 99
[2025-01-12] MEDS: ERTAPENEM 1 GM in SODIUM CHLORIDE 0.9% 100 ML IV (13:54)
--- NOTE | 2025-01-12 13:59 | PC.NURSE ---
CRP rising on labs 01/11. Double checked with Dr. George, hospitalist familiar with patient, and proceeded with ertapenem per his response to continue the infusions as ordered.
[2025-01-12 14:41] VITALS: BP 131/82; PULSE 92; RESP 18; TEMP 36.8; O2SAT 98
[2025-01-13 13:16] VITALS: BP 151/71; PULSE 100; RESP 18; TEMP 36.7; O2SAT 98
[2025-01-13] MEDS: ERTAPENEM 1 GM in SODIUM CHLORIDE 0.9% 100 ML IV (13:40)
[2025-01-14] MEDS: ERTAPENEM 1 GM in SODIUM CHLORIDE 0.9% 100 ML IV (14:22)
[2025-01-14 15:44] LABS: Add Manual Diff / Slide Review NO; Basophils Absolute Auto 0 /uL (0-100); Basophils Percent Auto 0.3 % (0-2); Eosinophils Absolute Auto 300 /uL (0-450); Eosinophils Percent Auto 5.7 % (2-4); Hematocrit 28.4 % (41-53); Hemoglobin 9.5 g/dL (13.5-17.5); Lymphocytes Absolute Auto 1200 /uL (1100-4500); Lymphocytes Percent Auto 24.2 % (25-40); Mean Corpuscular HGB Conc 33.4 % (30-36); Mean Corpuscular Hemoglobin 27.4 PG (26-34); Mean Corpuscular Volume 82.2 fL (80-100); Monocytes Absolute Auto 600 /uL (0-900); Monocytes Percent Auto 12.8 % (3-14); Neutrophils Absolute Auto 2800 /uL (1500-7000); Platelet Count 88 X10^3/uL (150-400); Red Blood Cell Count 3.46 X10^6/uL (4.5-5.9); Red Cell Distribution Width 18.9 % (11.6-14.8); White Blood Cell Count 4.9 X10^3/uL (4.5-11.0)
[2025-01-14 15:50] LABS: Alanine Aminotransferase 28 IU/L (<50); Albumin Globulin Ratio 1.1 (1.0-2.8); Alkaline Phosphatase 123 U/L (38-126); Aspartate Aminotransferase 61 IU/L (17-59); BUN Creatinine Ratio 6.1 (6-22); Bilirubin Total 2.5 mg/dL (0.2-1.3); Blood Urea Nitrogen 5 mg/dL (9-20); Calcium 9.3 mg/dL (8.4-10.2); Carbon Dioxide 24 mmol/L (22-32); Chloride 104 mmol/L (98-107); Creatine Kinase 78 U/L (55-170); Estimated Glomerular Filt Rate > 60 mL/min (>60); Globulin 3.8 g/dL (1.7-4.1); Glucose 137 mg/dL (70-100); HEMOLYSIS < 15 (0-50); Potassium 3.7 mmol/L (3.4-5.1); Sodium 138 mmol/L (137-145); Total Protein 7.8 g/dL (6.3-8.2)
[2025-01-15] MEDS: ERTAPENEM 1 GM in SODIUM CHLORIDE 0.9% 100 ML IV (16:24)
[2025-01-17 13:45] VITALS: BP 133/73; PULSE 116; RESP 16; TEMP 37.1; O2SAT 96
[2025-01-17 14:08] LABS: Add Manual Diff / Slide Review NO; Basophils Absolute Auto 0 /uL (0-100); Basophils Percent Auto 0.6 % (0-2); Eosinophils Absolute Auto 200 /uL (0-450); Eosinophils Percent Auto 4.8 % (2-4); Hematocrit 28.4 % (41-53); Hemoglobin 9.6 g/dL (13.5-17.5); Lymphocytes Absolute Auto 1300 /uL (1100-4500); Lymphocytes Percent Auto 26.3 % (25-40); Mean Corpuscular HGB Conc 33.8 % (30-36); Mean Corpuscular Hemoglobin 27.6 PG (26-34); Mean Corpuscular Volume 81.4 fL (80-100); Monocytes Absolute Auto 800 /uL (0-900); Monocytes Percent Auto 16.2 % (3-14); Neutrophils Absolute Auto 2700 /uL (1500-7000); Neutrophils Percent Auto 52.1 % (50-75); Platelet Count 83 X10^3/uL (150-400); Red Blood Cell Count 3.49 X10^6/uL (4.5-5.9); White Blood Cell Count 5.1 X10^3/uL (4.5-11.0)
[2025-01-17 14:25] LABS: Alanine Aminotransferase 24 IU/L (<50); Albumin 4.1 g/dL (3.5-5.0); Albumin Globulin Ratio 1.1 (1.0-2.8); Alkaline Phosphatase 146 U/L (38-126); Aspartate Aminotransferase 54 IU/L (17-59); BUN Creatinine Ratio 8.5 (6-22); Bilirubin Total 2.6 mg/dL (0.2-1.3); Blood Urea Nitrogen 8 mg/dL (9-20); C-Reactive Protein Quant 1.8 mg/dL (<1.0); Calcium 8.9 mg/dL (8.4-10.2); Carbon Dioxide 26 mmol/L (22-32); Chloride 101 mmol/L (98-107); Creatine Kinase 84 U/L (55-170); Estimated Glomerular Filt Rate > 60 mL/min (>60); Globulin 3.9 g/dL (1.7-4.1); Glucose 116 mg/dL (70-100); HEMOLYSIS < 15 (0-50); Potassium 3.7 mmol/L (3.4-5.1); Sodium 137 mmol/L (137-145)
[2025-01-17 14:26] LABS: Erythrocyte Sedimentation Rate 58 MM/HR (0-15)
[2025-01-17] MEDS: ERTAPENEM 1 GM in SODIUM CHLORIDE 0.9% 100 ML IV (14:42)
--- NOTE | 2025-01-18 13:50 | ONC.SCHED ---
Called and lvm for patient re: no show today.
--- NOTE | 2025-01-19 13:48 | PC.NURSE ---
Patient no show yesterday and today. Voicemail left both days.
--- NOTE | 2025-01-20 12:01 | PC.NURSE ---
Reached patient's today after only able to leave voicemails the last two days. She states patient's personality not right, this has happened before. This nurse spoke with patient who stated that both feet are hurting so bad. I instructed him to let hotel maintenance engineer take him to the ER. Patient agreed and called and then confirmed with infusion clinic that he is on his way with the ambulance.
[2025-01-21] MEDS: ERTAPENEM 1 GM in SODIUM CHLORIDE 0.9% 100 ML IV (14:13)
--- NOTE | 2025-01-21 14:55 | PC.NURSE ---
Day shift: Pt here today 01/21/25 at approx 1430. He did recieve his dose of IV antibiotic today. These may need to be retimed by pharmacy. Pt has had some missed dosed recently.
[2025-01-22] MEDS: ERTAPENEM 1 GM in SODIUM CHLORIDE 0.9% 100 ML IV (13:18)
[2025-01-23] MEDS: ERTAPENEM 1 GM in SODIUM CHLORIDE 0.9% 100 ML IV (13:11)
--- NOTE | 2025-01-23 13:50 | PC.NURSE ---
abx infusion pt had missed some days of abx infusion. Dose administered today scanned to 01/19 dose. IV to LUE flushed with saline pre and saline and heparin post abx infusion. pt states plans to return to infusion center tomorrow for abx.
--- NOTE | 2025-01-24 14:02 | PC.NURSE ---
Pateint was a no-show infusion on 01/23. This nurse called at 1130 and 1230 to encourage patient to get here today and emphasized the importance of the daily infusion for his healing (explained antibiotic resistance). Patient stated he is not sure how to get things organized, he reports that his mother is in our ER and that his foot hurts even more than last week and has a lot more drainage. He stated that he does not want to go to the ER. I encouraged him to start by getting here for his infusion and reminding him of the ride service which the DELIVERY DRIVER told him about on Friday. Later patient's called back and said he was now sleeping and she had a hard time waking him. This nurse emphasized that his foot needs to be looked at if there is more pain and drainage. She confirmed that this is so. Recommendation made by this nurse to call 911. stated ok.
[2025-01-25 13:23] VITALS: BP 152/76; PULSE 90; RESP 18; TEMP 37.5; O2SAT 98
[2025-01-25 13:40] LABS: Add Manual Diff / Slide Review NO; Basophils Absolute Auto 0 /uL (0-100); Basophils Percent Auto 0.7 % (0-2); Eosinophils Absolute Auto 100 /uL (0-450); Eosinophils Percent Auto 1.8 % (2-4); Hematocrit 29.1 % (41-53); Hemoglobin 9.8 g/dL (13.5-17.5); Lymphocytes Absolute Auto 1100 /uL (1100-4500); Lymphocytes Percent Auto 22.1 % (25-40); Mean Corpuscular HGB Conc 33.6 % (30-36); Mean Corpuscular Hemoglobin 27.3 PG (26-34); Mean Corpuscular Volume 81.3 fL (80-100); Monocytes Absolute Auto 800 /uL (0-900); Monocytes Percent Auto 14.5 % (3-14); Neutrophils Absolute Auto 3200 /uL (1500-7000); Neutrophils Percent Auto 60.9 % (50-75); Platelet Count 84 X10^3/uL (150-400); Red Blood Cell Count 3.58 X10^6/uL (4.5-5.9); Red Cell Distribution Width 19.9 % (11.6-14.8); White Blood Cell Count 5.2 X10^3/uL (4.5-11.0)
[2025-01-25 13:54] LABS: Alanine Aminotransferase 22 IU/L (<50); Albumin 4.2 g/dL (3.5-5.0); Alkaline Phosphatase 118 U/L (38-126); Aspartate Aminotransferase 50 IU/L (17-59); BUN Creatinine Ratio 9.3 (6-22); Blood Urea Nitrogen 10 mg/dL (9-20); C-Reactive Protein Quant 1.7 mg/dL (<1.0); Calcium 8.9 mg/dL (8.4-10.2); Carbon Dioxide 26 mmol/L (22-32); Chloride 100 mmol/L (98-107); Creatine Kinase 81 U/L (55-170); Estimated Glomerular Filt Rate > 60 mL/min (>60); Globulin 4.2 g/dL (1.7-4.1); Glucose 133 mg/dL (70-100); HEMOLYSIS < 15 (0-50); Potassium 3.4 mmol/L (3.4-5.1); Sodium 138 mmol/L (137-145); Total Protein 8.4 g/dL (6.3-8.2)
[2025-01-25] MEDS: ERTAPENEM 1 GM in SODIUM CHLORIDE 0.9% 100 ML IV (14:03)
[2025-01-25 14:12] LABS: Erythrocyte Sedimentation Rate 68 MM/HR (0-15)
--- NOTE | 2025-01-25 14:27 | PC.NURSE ---
1340 All Labs drawn via L Upper Arm PICC and sent: ESR, CBC, CK, CMP, CRP; Good blood return and Flushes well. 1345 Pharmacy aware and prepping Ertapenem; Called Wound care and patient did miss appt 01/20/25 shown as no show. help desk rep staff explains he can stop by today after infusion clinic and they will get him rescheduled for next week. I will walk patient down to Wound Care Desk. 1400 Old dressing completely intact and sealed, last changed 01/13/25 @ infusion clinic, no lifting of edges noted. Some redness noted under dressing but no warmth or edema noted. PICC line Dressing changed (01/25/25): noted small amount of dried blood at site and under CHG disc to edges of chg disc. No active bleeding. Slight redness and raised area at insertion site of PICC line into arm; no warmth, no drainage except dried blood noted, no odor noted from site or under dressing Redness under site where tegaderm removed with dry flaky skin but without edema, warmth, streaking. Denies fever, chills, pain to site of PICC line. 1446 Ertapenem completed. Reviewed not soaking wound, swimming, bath etc. Reviewed not to use Peroxide or Isopropyl alcohol for wound cleansing due to its effects on both healthy tissue and wound tissue that will make healing more complicated. Basic wound care reviewed with printed instructions given to patient from [employer]: Patient Education: Wound Care - ED discharge instructions (The Basics) *copy to be scanned into chart. 1500 Patient walked by this RN to Wound Care desk to get rescheduled for Wound Care Referral, encouraged to keep regular appointments with Wound Care, Infusion Center, Infectious Disease, and Primary care. Encouraged to call and see PCP, go to ER, or go to [facility] for provider to evaluate foot wound and complete dressing change in interim prior to wound care appointment. Reviewed need for daily antibiotic infusion, labs 2 x weekly, and weekly PICC line dsg changes. Patient verbalized understanding.
[2025-01-25 15:01] VITALS: BP 145/77; PULSE 68; RESP 18; TEMP 36.6; O2SAT 98
[2025-01-26 13:14] VITALS: BP 142/75; PULSE 104; RESP 16; TEMP 37.1; O2SAT 100
[2025-01-26] MEDS: ERTAPENEM 1 GM in SODIUM CHLORIDE 0.9% 100 ML IV (13:15)
--- NOTE | 2025-01-26 13:54 | PC.NURSE ---
Patient given [place] CHG wipes used by inpatient for daily CHG bathing/wipedown protocol with central lines to continue use at home. He will be beginning wound care next week, seeing them after having antibiotics at infusion center. Patient reports improvement in pain in foot from yesterday, continues to deny fever, reports improved balance today as well.
[2025-01-27 13:28] VITALS: BP 164/78; PULSE 120; RESP 18; TEMP 37.3; O2SAT 95
[2025-01-27 13:50] LABS: Add Manual Diff / Slide Review NO; Basophils Absolute Auto 0 /uL (0-100); Basophils Percent Auto 0.6 % (0-2); Eosinophils Absolute Auto 100 /uL (0-450); Eosinophils Percent Auto 1.8 % (2-4); Hematocrit 30.1 % (41-53); Lymphocytes Absolute Auto 1000 /uL (1100-4500); Lymphocytes Percent Auto 24.4 % (25-40); Mean Corpuscular HGB Conc 33.1 % (30-36); Mean Corpuscular Hemoglobin 27.1 PG (26-34); Mean Corpuscular Volume 81.9 fL (80-100); Monocytes Absolute Auto 500 /uL (0-900); Monocytes Percent Auto 12.6 % (3-14); Neutrophils Absolute Auto 2600 /uL (1500-7000); Neutrophils Percent Auto 60.6 % (50-75); Platelet Count 71 X10^3/uL (150-400); Red Blood Cell Count 3.68 X10^6/uL (4.5-5.9); Red Cell Distribution Width 20.2 % (11.6-14.8); White Blood Cell Count 4.3 X10^3/uL (4.5-11.0)
[2025-01-27] MEDS: ERTAPENEM 1 GM in SODIUM CHLORIDE 0.9% 100 ML IV (14:00)
[2025-01-27 14:02] LABS: Alanine Aminotransferase 26 IU/L (<50); Albumin 4.2 g/dL (3.5-5.0); Alkaline Phosphatase 106 U/L (38-126); Aspartate Aminotransferase 54 IU/L (17-59); BUN Creatinine Ratio 11.9 (6-22); Bilirubin Total 2.3 mg/dL (0.2-1.3); Blood Urea Nitrogen 10 mg/dL (9-20); C-Reactive Protein Quant 1.2 mg/dL (<1.0); Calcium 9.3 mg/dL (8.4-10.2); Carbon Dioxide 26 mmol/L (22-32); Chloride 104 mmol/L (98-107); Creatine Kinase 65 U/L (55-170); Estimated Glomerular Filt Rate > 60 mL/min (>60); Globulin 4.1 g/dL (1.7-4.1); Glucose 151 mg/dL (70-100); HEMOLYSIS < 15 (0-50); Potassium 3.6 mmol/L (3.4-5.1); Sodium 140 mmol/L (137-145); Total Protein 8.3 g/dL (6.3-8.2)
[2025-01-27 14:06] LABS: Anisocytosis 1+
[2025-01-27 14:08] LABS: Erythrocyte Sedimentation Rate 52 MM/HR (0-15)
[2025-01-28] MEDS: ERTAPENEM 1 GM in SODIUM CHLORIDE 0.9% 100 ML IV (13:22)
[2025-01-29] MEDS: ERTAPENEM 1 GM in SODIUM CHLORIDE 0.9% 100 ML IV (14:05)
[2025-01-30] MEDS: ERTAPENEM 1 GM in SODIUM CHLORIDE 0.9% 100 ML IV (13:22)
[2025-01-30] MEDS: SODIUM CHLORIDE 0.9% FLUSH 10 ML IV (13:28)
--- NOTE | 2025-01-30 13:30 | PC.NURSE ---
Addendum entered by Dennis Godfrey R.N. 01/30/25 14:05: Tolerated infusion well. PICC flushed per protocol. Leaving ACU now at approx 1410. Original Note: Day shift: Wall her on time for infusion. He has no complaints and didn't want a set of vitals taken. Sitting in chair with ice water in hand. PICC site patent w/ no s/s of infection.
[2025-01-31 13:22] VITALS: BP 146/61; PULSE 118; RESP 16; TEMP 36.8; O2SAT 100
[2025-01-31 13:30] LABS: Add Manual Diff / Slide Review NO; Basophils Absolute Auto 0 /uL (0-100); Basophils Percent Auto 0.6 % (0-2); Eosinophils Absolute Auto 100 /uL (0-450); Eosinophils Percent Auto 2.5 % (2-4); Hematocrit 28.2 % (41-53); Hemoglobin 9.6 g/dL (13.5-17.5); Lymphocytes Absolute Auto 1000 /uL (1100-4500); Lymphocytes Percent Auto 22.3 % (25-40); Mean Corpuscular Hemoglobin 27.8 PG (26-34); Mean Corpuscular Volume 81.6 fL (80-100); Monocytes Absolute Auto 600 /uL (0-900); Monocytes Percent Auto 13.8 % (3-14); Neutrophils Absolute Auto 2700 /uL (1500-7000); Neutrophils Percent Auto 60.8 % (50-75); Platelet Count 95 X10^3/uL (150-400); Red Blood Cell Count 3.46 X10^6/uL (4.5-5.9); Red Cell Distribution Width 20.1 % (11.6-14.8); White Blood Cell Count 4.5 X10^3/uL (4.5-11.0)
[2025-01-31] MEDS: ERTAPENEM 1 GM in SODIUM CHLORIDE 0.9% 100 ML IV (13:36)
[2025-01-31 13:44] LABS: Alanine Aminotransferase 31 IU/L (<50); Albumin 4.2 g/dL (3.5-5.0); Alkaline Phosphatase 115 U/L (38-126); Aspartate Aminotransferase 67 IU/L (17-59); BUN Creatinine Ratio 10.1 (6-22); Bilirubin Total 1.8 mg/dL (0.2-1.3); Blood Urea Nitrogen 8 mg/dL (9-20); C-Reactive Protein Quant < 0.5 mg/dL (<1.0); Calcium 8.8 mg/dL (8.4-10.2); Carbon Dioxide 23 mmol/L (22-32); Chloride 102 mmol/L (98-107); Estimated Glomerular Filt Rate > 60 mL/min (>60); Globulin 4.2 g/dL (1.7-4.1); Glucose 161 mg/dL (70-100); HEMOLYSIS < 15 (0-50); Potassium 3.8 mmol/L (3.4-5.1); Sodium 137 mmol/L (137-145); Total Protein 8.4 g/dL (6.3-8.2)
[2025-01-31 13:49] LABS: Anisocytosis 1+
[2025-01-31 13:50] LABS: Erythrocyte Sedimentation Rate 54 MM/HR (0-15)
[2025-02-01 13:27] VITALS: BP 142/75; PULSE 119; RESP 18; TEMP 37.3; O2SAT 100
[2025-02-01] MEDS: ERTAPENEM 1 GM in SODIUM CHLORIDE 0.9% 100 ML IV (13:36)
--- NOTE | 2025-02-01 13:44 | PC.NURSE ---
Faxed Labs to PCP Dr Cutler @ [facility]
--- NOTE | 2025-02-01 15:12 | PC.NURSE ---
Dr Mario Cutler [facility] at [facility] PH # [phone] (Primary Care Physician) called to clarify/request orders. Patient has only 2 more infusion appointments for Ertapenem from initial order, need to know if we continue the Ertapenem IV antibiotics or not and if not should his PICC line remain in/be removed/how long. Message left with vineyard supervisor for Provider to review.
--- NOTE | 2025-02-01 16:05 | PC.NURSE ---
called and spoke with Dorothea Banerjee MA @ [facility] PH# [phone] --NAVIN LINE (patient had first visit with Dr Javon Shelby on Friday01/28/25) Asked to clarify if patient is to continue Ertapenem treatment or complete treatment and plan for his osteomyelitis. Patient does have PICC in place. Currently patient only has a phone f/u scheduled in a few weeks and NAVIN will speak with provider to clarify questions and get back with our Infusion clinic.
--- NOTE | 2025-02-01 16:51 | PC.NURSE ---
Faxed Labs to Dr Mario Cutler @ [facility] & Faxed labs to Dr Javon Chen @ [facility] with fax confirmations for both faxes as sent - ok.
[2025-02-02] MEDS: ERTAPENEM 1 GM in SODIUM CHLORIDE 0.9% 100 ML IV (13:27)
--- NOTE | 2025-02-02 14:55 | PC.NURSE ---
Left a message at 1400 on 02/02/25 for Dorothea at Infectious Disease to call us back regarding moving forward with Jims iv antibiotic. Dorothea responded at 1430 and left a message with us. Codi HILLS called Dr. Shelby's cell phone and left a message at 1600. Sophie WILLIAMSON
--- NOTE | 2025-02-03 08:13 | PC.NURSE ---
Patient see's Dr Javon Shelby @ [facility] with his first visit there last Friday01/28/25. Patient also had first wound care appointment @ [facility] this last Friday02/01/26 and first Primary Care appointment @ [facility] w/Dr Mario Cutler this last Friday01/31/25. Patient is going to be seeing wound care weekly. 0810 am: Called and spoke with [facility] NAVIN Piedra - Dr Javon Shelby is off this week. She has sent message to him about our calls/inquiry regarding Ertapenem IV dosing - today will be dose # 23 of 29 but the original order has today as the final dose/stop date. Patient still has PICC line with care being provided for it at infusion center per protocol. Dorothea will call us back with response if patient should continue Ertapenem, if any additional labs are needed, and for PICC removal orders/ok. She has the notes from most recent Wound Care visit including pictures of wound for Dr Javon Shelby. The wound care consultation and notes were needed for Dr Javon Shelby to make his full and final decision. His clinic note for the patients visit 01/28/25 is not finalized yet but Dorothea can send a copy when it is. We will set patient up for an appointment next week here at infusion center to draw any final labs and remove PICC if we do not hear back today regarding PICC line or antibiotics but will not continue Ertapenem without a new order. [facility] - (NAVIN Piedra) -- NAVIN direct phone # [phone] Front Office ph# [phone] Direct # for Dr Javon Shelby (personal ph# only for urgent needs) available in infusion center.
--- NOTE | 2025-02-03 09:20 | PC.NURSE ---
Dr Javon Lowery called; new orders given, see Verbal Order on Ertapenem order set to be scanned into chart. Patient is to complete 7 additional doses of Ertapenem, start date tomorrow 02/04/25 and PICC line to be pulled at final dose on 02/10/25, as long as no more missed doses.
[2025-02-03 13:14] VITALS: BP 120/64; PULSE 80; RESP 18; TEMP 37.2; O2SAT 97
[2025-02-03] MEDS: ERTAPENEM 1 GM in SODIUM CHLORIDE 0.9% 100 ML IV (13:15)
[2025-02-03 13:16] LABS: Add Manual Diff / Slide Review NO; Basophils Absolute Auto 0 /uL (0-100); Basophils Percent Auto 0.7 % (0-2); Eosinophils Absolute Auto 100 /uL (0-450); Eosinophils Percent Auto 2.8 % (2-4); Hematocrit 27.4 % (41-53); Hemoglobin 9.2 g/dL (13.5-17.5); Lymphocytes Absolute Auto 1200 /uL (1100-4500); Lymphocytes Percent Auto 27.2 % (25-40); Mean Corpuscular HGB Conc 33.5 % (30-36); Mean Corpuscular Hemoglobin 27.2 PG (26-34); Mean Corpuscular Volume 81.3 fL (80-100); Monocytes Absolute Auto 500 /uL (0-900); Neutrophils Absolute Auto 2600 /uL (1500-7000); Neutrophils Percent Auto 58.3 % (50-75); Platelet Count 102 X10^3/uL (150-400); Red Blood Cell Count 3.37 X10^6/uL (4.5-5.9); Red Cell Distribution Width 19.7 % (11.6-14.8); White Blood Cell Count 4.5 X10^3/uL (4.5-11.0)
[2025-02-03 13:31] LABS: Alanine Aminotransferase 26 IU/L (<50); Albumin 3.8 g/dL (3.5-5.0); Alkaline Phosphatase 107 U/L (38-126); Aspartate Aminotransferase 53 IU/L (17-59); BUN Creatinine Ratio 9.4 (6-22); Bilirubin Total 2.7 mg/dL (0.2-1.3); Blood Urea Nitrogen 9 mg/dL (9-20); C-Reactive Protein Quant 1.6 mg/dL (<1.0); Calcium 8.7 mg/dL (8.4-10.2); Carbon Dioxide 25 mmol/L (22-32); Chloride 102 mmol/L (98-107); Creatine Kinase 127 U/L (55-170); Estimated Glomerular Filt Rate > 60 mL/min (>60); Globulin 3.7 g/dL (1.7-4.1); Glucose 116 mg/dL (70-100); HEMOLYSIS < 15 (0-50); Potassium 3.9 mmol/L (3.4-5.1); Sodium 135 mmol/L (137-145); Total Protein 7.5 g/dL (6.3-8.2)
[2025-02-03 13:33] LABS: Erythrocyte Sedimentation Rate 47 MM/HR (0-15)
[2025-02-03 14:30] VITALS: BP 110/56; PULSE 55; RESP 18; TEMP 37.2; O2SAT 97
[2025-02-04] MEDS: ERTAPENEM 1 GM in SODIUM CHLORIDE 0.9% 100 ML IV (13:51)
[2025-02-04] MEDS: SODIUM CHLORIDE 0.9% FLUSH 10 ML IV (13:54)
--- NOTE | 2025-02-07 10:56 | PC.NURSE ---
10:12 Left patient message # [phone]. Checking on patient, he missed 2 appointments Sat & Sun. Left reminder for appointment @ infusion center today at 1:30 pm.
--- NOTE | 2025-02-07 10:58 | PC.NURSE ---
Called patients 's PH# [phone] Patient answered phone. Verified he will be in to appointment today @ 1330. Called [facility] -- NAVIN Burk (Dorothea Johnson MA) PH# [phone] left VM that Eric Fontenot did miss 2 weekend appointments but I spoke with him today, verified he will be here at 1330. Labs due today will be sent to office. Patient is set to complete his antibiotic infusions this 02/10/25 and PICC line removed that appointment after final dose. Will send the office his labs from today to fax line
--- NOTE | 2025-02-07 14:11 | PC.NURSE ---
1410 Patient did not arrive for his appointment at 1330, per my earlier conversation with the patient - see previous notes, patient was aware of appointment and planning on coming for his ertapenem infusion. Unable to reach patient directly by phone this afternoon. Called PH # [phone] and call goes to voicemail after a few rings, VM message left identifying myself and asking patient to please contact us at [phone]. Called patients 's phone PH# [phone], call goes to voicemail after a few rings, VM message left identifying myself and asking her to have Eric call us. 1415 Called [facility] [place] Line PH# [phone] spoke with Dorothea Johnson MA, notified her that patient told me this AM he would be here for todays Ertapenem infusion, but patient did miss/not show this afternoon and I have been unable to reach patient, only able to leave voivcemail for patient. She will update message/notification to Dr Javon Shelby about patient has now missed #3 doses of Ertapenem. [facility] infectious disease office will notify us of his orders/response. Patient does have PICC line in place, dressing change due today 02/07/25 with labs due and daily IV Ertapenem due.
--- NOTE | 2025-02-08 10:40 | PC.NURSE ---
Messages left for patient this AM to call
--- NOTE | 2025-02-08 10:42 | PC.NURSE ---
Called patients PH # [phone] and patients 's phone PH# [phone] VM messages left reminding of appointment and requesting he come in and contact us. Called [facility] NAVIN line # [phone] and notified Dorothea Johnson MA of patient missing appointments *see previous notes spoke with Dr Javon Shelby @ [facility] ph# [phone] notified him of patients missed appointments, PICC dressing change overdue. Orders given to have PICC line pulled due to infection risk. Infectious disease office will reach out to patient as well and contact [facility] [place] to see if patient comes to wound care appointment today. EXT # [id number] spoke with staff at [facility] [place], notified them patient has missed a few infusions. They have left a voicemail reminder of patient's wound care appointment today @ 1430. Staff will notify Infusion clinic if patient arrives today so PICC line can be removed.
[2025-02-09 13:16] VITALS: BP 124/95; PULSE 80; RESP 18; TEMP 36.8; O2SAT 99
[2025-02-09] MEDS: ERTAPENEM 1 GM in SODIUM CHLORIDE 0.9% 100 ML IV (13:41)
[2025-02-09 13:48] LABS: Add Manual Diff / Slide Review NO; Basophils Absolute Auto 0 /uL (0-100); Basophils Percent Auto 0.6 % (0-2); Eosinophils Absolute Auto 100 /uL (0-450); Eosinophils Percent Auto 2.5 % (2-4); Hematocrit 30.1 % (41-53); Hemoglobin 10.2 g/dL (13.5-17.5); Lymphocytes Absolute Auto 1300 /uL (1100-4500); Lymphocytes Percent Auto 25.9 % (25-40); Mean Corpuscular Hemoglobin 27.3 PG (26-34); Mean Corpuscular Volume 80.5 fL (80-100); Monocytes Absolute Auto 500 /uL (0-900); Monocytes Percent Auto 11.3 % (3-14); Neutrophils Absolute Auto 2900 /uL (1500-7000); Neutrophils Percent Auto 59.7 % (50-75); Platelet Count 75 X10^3/uL (150-400); Red Blood Cell Count 3.75 X10^6/uL (4.5-5.9); Red Cell Distribution Width 19.4 % (11.6-14.8); White Blood Cell Count 4.9 X10^3/uL (4.5-11.0)
[2025-02-09 14:00] VITALS: BP 144/69; PULSE 97; RESP 18; TEMP 36.9; O2SAT 100
[2025-02-09 14:01] LABS: Alanine Aminotransferase 23 IU/L (<50); Albumin 4.2 g/dL (3.5-5.0); Alkaline Phosphatase 130 U/L (38-126); Aspartate Aminotransferase 57 IU/L (17-59); BUN Creatinine Ratio 11.4 (6-22); Bilirubin Total 2.6 mg/dL (0.2-1.3); Blood Urea Nitrogen 8 mg/dL (9-20); C-Reactive Protein Quant < 0.5 mg/dL (<1.0); Carbon Dioxide 21 mmol/L (22-32); Chloride 101 mmol/L (98-107); Creatine Kinase 168 U/L (55-170); Estimated Glomerular Filt Rate > 60 mL/min (>60); Globulin 4.3 g/dL (1.7-4.1); Glucose 195 mg/dL (70-100); HEMOLYSIS 21 (0-50); Sodium 137 mmol/L (137-145); Total Protein 8.5 g/dL (6.3-8.2)
[2025-02-09] MEDS: NEOMYCIN/POLYMYXIN/BACITRA UD OINT 1 EACH TOP (14:05)
[2025-02-09 14:10] VITALS: BP 138/73; PULSE 98; RESP 18; O2SAT 100
[2025-02-09 14:25] VITALS: BP 144/88; PULSE 99; RESP 18; O2SAT 100
[2025-02-09 14:29] LABS: Erythrocyte Sedimentation Rate 54 MM/HR (0-15)
[2025-02-09 14:48] VITALS: BP 126/59; PULSE 96; RESP 18; TEMP 36.9; O2SAT 100
--- NOTE | 2025-02-09 15:09 | PC.NURSE ---
R Lower Arm PIV placed # 22 Ga with labs drawn via PIV and Ertapenem infused via PIV. Patient PICC line D/C per Protocol; Tip Intact, 45 cm per PICC line markings; Patient monitored x 30 mins, reclined position during PICC line discontinue procedure and post monitoring - Vitals documented in Flowsheet. Occlusive dressing placed onto site with triple antibiotic ointment. Printed PICC Line removal instructions given to patient - from [employer] - copy scanned into chart. Instructed patient for dsg to remain in place x 2 days, reviewed return precautions. Patient verbalized understanding.
--- NOTE | 2025-02-10 09:05 | PC.NURSE ---
Called [facility] DC Line - PH# [phone] spoke with Dorothea Johnson MA. They received fax sent yesterday regarding Eric Wall, removal of PICC line, latest labs, vitals, and dose of Ertapenam given via peripheral IV. Dr Javon Cordova has reviewed them and no further orders relayed to continue Ertapenam beyond todays dose, if patient does attend appointment today, final Ertapenam dose will be given via PIV, no further labs requested.
[2025-02-10 13:25] VITALS: BP 135/77; PULSE 94; RESP 18; TEMP 37.1; O2SAT 98
[2025-02-10] MEDS: ERTAPENEM 1 GM in SODIUM CHLORIDE 0.9% 100 ML IV (13:35)
[2025-02-10 14:31] VITALS: BP 133/73; PULSE 66; RESP 18; TEMP 37.1; O2SAT 97
== END ==
PROVIDERS: Internal Medicine Infectious Disease; PCP Family Medicine; Referring Provider Internal Medicine; Visit Provider Internal Medicine
DX: M86.9 Osteomyelitis, unspecified (principal)
CPT/HCPCS: 36415; 36592; 80053; 82550; 85025; 85651; 86140; 96365; 96366; J1335; J1642

== ENCOUNTER 2025-02-23 08:12 | Inpatient (IN) | payer OTHER, SELFPAY ==
[2024-12-20 11:04] VITALS: BMI 33.1
[2025-02-23] VITALS (13 sets, daily range): BP systolic 124–158; BP diastolic 60–83; PULSE 66–118; RESP 16–22; TEMP 36.1–36.5; O2SAT 93–100; BMI 28.7
--- NOTE | 2025-02-23 08:23 | PC.NURSE ---
Attempted to place seizure pads for alcohol withdrawal. Pt argued and ripped seizure pads off of bed.
--- NOTE | 2025-02-23 08:27 | ED_ITS ---
HPI - General Adult General Chief complaint: Fall Stated complaint: Fall, L Knee Pain Time Seen by Provider: 02/23/25 08:12 History of Present Illness HPI narrative: 49-year-old gentleman with a history of alcohol use disorder, difficult social situation with APS involvement and no further suggestions, history of right foot neuropathic ulcer and osteomyelitis (discharge January 05 was supposed to have 6 weeks of carbapenems and weekly blood tests) presents today via medics with acute alcohol intoxication after a fall. Medics note that they have been to his house every single day for the last 2 weeks. Home is significantly disheveled, he does have additional people that live in the home. He has a small abrasion to his forehead. Medics note that he has been increasingly weak and has declined coming to the emergency department, finally willing to do so today. He is smells very strongly of alcohol, is somewhat unsteady, slurred speech but cooperative Related Data Home Medications Medication Instructions Recorded Confirmed pregabalin 75 mg capsule 75 mg PO TID 09/26/22 12/20/24 Previous Rx's Medication Instructions Recorded furosemide 40 mg tablet (Lasix) 40 mg PO DAILY #30 tabs 11/18/24 spironolactone 25 mg tablet 25 mg PO DAILY #30 tabs 11/18/24 ertapenem 1 gram solution for 1 g IM Q24H #10 ea 01/05/25 injection furosemide 40 mg tablet (Lasix) 40 mg PO DAILY #30 tabs 01/11/25 spironolactone 25 mg tablet 25 mg PO DAILY #30 tabs 01/11/25 Allergies Allergy/AdvReac Type Severity Reaction Status Date / Time No Known Drug Allergies Allergy Verified 02/23/25 08:33 Review of Systems Review of Systems Narrative: Pertinent positive and negative findings as per HPI Patient History Medical History Hepatosplenomegaly Portal hypertension Hepatosplenomegaly Foot osteomyelitis, right Neuropathic foot ulcer Decreased libido Erectile dysfunction Alcohol abuse (~2016) Low back pain (Unknown) Polyneuropathy (Unknown) Acne (Unknown) Hypertension (2004) Essential hypertension (09/12/16) Surgical History H/O surgical amputation of finger Hx of cholecystectomy (2001) Family History Grandmother Mental health problem Grandfather Cancer Grandmother Cancer Mother History of back problems Father Amputation leg, bilat Social History household members: spouse and family Smoking Status: Current every day smoker Tobacco: How many years used: 1 Smokeless tobacco user: chewing tobacco (many, many years) alcohol intake: current substance use type: does not use Smoking Status: Current every day smoker tobacco type: cigarettes and smokeless tobacco alcohol intake frequency: 0-2 drinks per day Alcohol type: beer Exam Initial Vital Signs Initial Vital Signs: Vital Signs Blood Pressure 141/83 H 02/23/25 08:14 General: Disheveled, minor abrasion on his forehead from his fall today HEENT: Moist mucous membranes, normal sclera with reactive pupils, Respiratory: Lungs are clear to auscultation, no wheezing no rales no rhonchi. Full and symmetrical air movement Cardiac: Tachycardic but otherwise Regular rate and rhythm no murmurs no bruits Abdomen: Soft, nontender, no rebound or guarding, no flank pain Skin: Chronic venous stasis changes bilaterally lower extremities. Neurologic: Grossly neurologically intact with no obvious asymmetries or abnormalities Extremities: 3 cm Laceration to the left knee that is does appear to be healing with slight increase in erythema extending from the wound. It is partially healed and too late for any surgical repair at this point Psych: Cooperative, significantly intoxicated Course Orders Ordered: ED Orders 02/23/25 08:00 Complete Blood Count AUTO DIFF Stat 02/23/25 08:20 PTT Partial Thromboplastin [place] Stat Troponin I Stat 02/23/25 08:34 Urinalysis and Microscopic Stat 02/23/25 09:37 Comprehensive Metabolic Panel Stat Ethanol (ETOH) Stat Lactate (Lactic Acid) Stat Lipase Stat Magnesium Stat NT-proBNP (BNP-Adult 18+) Stat Procalcitonin Stat 02/23/25 09:38 CT cervical spine wo con Stat CT head/brain wo con Stat XR chest 1V Stat Prothrombin Time INR Stat EKG-12 Lead Stat 02/23/25 10:40 Blood Culture Stat Discontinued Medications Bacitracin (Bacitracin Oint 0.9 Gm Pckt) 1 applic TOP NOW ONE Stop: 02/23/25 10:33 Last Admin: 02/23/25 11:30 Dose: 1 applic Documented By: Lorazepam (Lorazepam 2 Mg/Ml Inj) 1 mg IV NOW ONE Stop: 02/23/25 09:43 Last Admin: 02/23/25 10:22 Dose: 1 mg Documented By: Vital Signs Vital signs: Vital Signs - 8 hr 02/23/25 08:24 02/23/25 08:45 02/23/25 08:45 Pulse Rate 115 H 118 H Respiratory Rate 16 Blood Pressure 141/83 H 158/73 H Pulse Oximetry 98 96 Oxygen Delivery Method Room Air 02/23/25 09:00 02/23/25 09:00 02/23/25 09:21 Pulse Rate 105 H 103 H Respiratory Rate 16 22 Blood Pressure 133/60 Pulse Oximetry 96 93 Oxygen Delivery Method 02/23/25 09:30 02/23/25 09:39 02/23/25 12:00 Pulse Rate 108 H 68 Respiratory Rate 16 Blood Pressure 124/65 145/78 H Pulse Oximetry 99 98 Oxygen Delivery Method Room Air 02/23/25 14:01 02/23/25 15:00 Pulse Rate 66 69 Respiratory Rate 19 19 Blood Pressure 133/78 133/78 Pulse Oximetry 99 98 Oxygen Delivery Method Room Air Room Air Medical Decision Making Lab Data 02/23/25 08:00 02/23/25 09:37 Labs: Lab Results 02/23/25 02/23/25 02/23/25 Range/Units 08:00 08:20 08:34 WBC 11.2 H (4.5-11.0) X10^3/uL RBC 3.98 L (4.5-5.9) X10^6/uL Hgb 10.7 L (13.5-17.5) g/dL Hct 32.3 L (41-53) % MCV 81.0 (80-100) fL MCH 26.8 (26-34) PG MCHC 33.1 (30-36) % RDW 19.4 H (11.6-14.8) % Plt Count 77 L (150-400) X10^3/uL Neut % (Auto) 51.1 (50-75) % Lymph % (Auto) 30.5 (25-40) % [place] % (Auto) 15.5 H (3-14) % Eos % (Auto) 2.3 (2-4) % Baso % (Auto) 0.6 (0-2) % Neut # (Auto) 5700 (1791-2145) /uL Lymph # (Auto) 3400 (2509-2756) /uL [place] # (Auto) 1700 H (0-900) /uL Eos # (Auto) 300 (0-450) /uL Baso # (Auto) 100 (0-100) /uL PT (9.4-12.5) SECONDS INR (0.9-1.3) APTT 77 H* (25.1-36.5) SECONDS Sodium (137-145) mmol/L Potassium (3.4-5.1) mmol/L Chloride (98-107) mmol/L Carbon Dioxide (22-32) mmol/L BUN (9-20) mg/dL Creatinine (0.66-1.25) mg/dL Estimated GFR (>60) mL/min BUN/Creatinine Ratio (6-22) Glucose (70-100) mg/dL Lactate (0.7-2.1) mmol/L Calcium (8.4-10.2) mg/dL Magnesium (1.6-2.3) mg/dL Total Bilirubin (0.2-1.3) mg/dL AST (17-59) IU/L ALT (<50) IU/L Alkaline Phosphatase (38-126) U/L Troponin I < 0.012 (0.01-0.034) ng/mL NT-Pro-B Natriuret Pep (<125) pg/mL Total Protein (6.3-8.2) g/dL Albumin (3.5-5.0) g/dL Globulin (1.7-4.1) g/dL Albumin/Globulin Ratio (1.0-2.8) Lipase (23-300) U/L Procalcitonin (<0.5) ng/mL Urine Color Yellow Urine Appearance Clear Urine pH 6.0 (4.5-8.0) Ur Specific [place] 1.010 (1.000-1.035) Urine Protein Negative (Negative) Urine Glucose (UA) Negative (Negative) g/dL Urine Ketones Negative (NEGATIVE) Urine Occult Blood Negative (Negative) Urine Nitrate Negative (Negative) Urine Bilirubin Negative (NEGATIVE) Urine Urobilinogen 1.0 (0.2) E.U./dL Ur Leukocyte Esterase Negative (NEGATIVE) Urine RBC None seen (0-5/HPF) Urine WBC None seen (0-5/HPF) Ur Squamous Epith Cells None seen (0-5/HPF) Urine Bacteria None seen (None) Ur Culture Indicated? Cult not indicated Vol Urine Centrifuged 10ml (spun) Ethyl Alcohol ( - 10) mg/dL 02/23/25 02/23/25 02/23/25 Range/Units 09:37 09:38 12:25 WBC (4.5-11.0) X10^3/uL RBC (4.5-5.9) X10^6/uL Hgb (13.5-17.5) g/dL Hct (41-53) % MCV (80-100) fL MCH (26-34) PG MCHC (30-36) % RDW (11.6-14.8) % Plt Count (150-400) X10^3/uL Neut % (Auto) (50-75) % Lymph % (Auto) (25-40) % [place] % (Auto) (3-14) % Eos % (Auto) (2-4) % Baso % (Auto) (0-2) % Neut # (Auto) (7843-2553) /uL Lymph # (Auto) (7970-6318) /uL [place] # (Auto) (0-900) /uL Eos # (Auto) (0-450) /uL Baso # (Auto) (0-100) /uL PT 16.5 H (9.4-12.5) SECONDS INR 1.5 H (0.9-1.3) APTT (25.1-36.5) SECONDS Sodium 144 (137-145) mmol/L Potassium 4.1 (3.4-5.1) mmol/L Chloride 108 H (98-107) mmol/L Carbon Dioxide 18 L (22-32) mmol/L BUN 10 (9-20) mg/dL Creatinine 1.08 (0.66-1.25) mg/dL Estimated GFR > 60 (>60) mL/min BUN/Creatinine Ratio 9.3 (6-22) Glucose 149 H (70-100) mg/dL Lactate 2.7 H 1.6 (0.7-2.1) mmol/L Calcium 9.1 (8.4-10.2) mg/dL Magnesium 1.7 (1.6-2.3) mg/dL Total Bilirubin 3.4 H (0.2-1.3) mg/dL AST 77 H (17-59) IU/L ALT 29 (<50) IU/L Alkaline Phosphatase 126 (38-126) U/L Troponin I (0.01-0.034) ng/mL NT-Pro-B Natriuret Pep < 20 (<125) pg/mL Total Protein 9.0 H (6.3-8.2) g/dL Albumin 4.6 (3.5-5.0) g/dL Globulin 4.4 H (1.7-4.1) g/dL Albumin/Globulin Ratio 1.0 (1.0-2.8) Lipase 203 (23-300) U/L Procalcitonin 0.086 (<0.5) ng/mL Urine Color Urine Appearance Urine pH (4.5-8.0) Ur Specific [place] (1.000-1.035) Urine Protein (Negative) Urine Glucose (UA) (Negative) g/dL Urine Ketones (NEGATIVE) Urine Occult Blood (Negative) Urine Nitrate (Negative) Urine Bilirubin (NEGATIVE) Urine Urobilinogen (0.2) E.U./dL Ur Leukocyte Esterase (NEGATIVE) Urine RBC (0-5/HPF) Urine WBC (0-5/HPF) Ur Squamous Epith Cells (0-5/HPF) Urine Bacteria (None) Ur Culture Indicated? Vol Urine Centrifuged Ethyl Alcohol 416 H* ( - 10) mg/dL Urine Dip Bedside Urine Glucose Negative Bedside Urine Bilirubin - Negative Bedside Urine Ketone - Negative Urine Specific [place] 1.010 Bedside Urine Occult Blood - Negative Bedside Urine pH 6.0 Bedside Urine Protein - Negative Bedside Urine Urobilinogen - Negative Bedside Urine Nitrite - Negative Bedside Urine Leukocytes - Negative Esterase Point of care testing: Urine Dip Bedside Urine Glucose Negative Bedside Urine Bilirubin - Negative Bedside Urine Ketone - Negative Urine Specific [place] 1.010 Bedside Urine Occult Blood - Negative Bedside Urine pH 6.0 Bedside Urine Protein - Negative Bedside Urine Urobilinogen - Negative Bedside Urine Nitrite - Negative Bedside Urine Leukocytes - Negative Esterase MDM Narrative Medical decision making narrative: CC: Recurrent falls Complicating co-morbidities: Alcohol use disorder, difficult social situation, medics have been out to visit him almost daily for the last 3 weeks Data collected from: patient Social determinants of health that may influence the patients condition: Patient is significantly impaired in 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 He has a 3 cm laceration to his left knee that could have been sutured 3 days ago, is beginning to heal mild superficial erythema needs antibiotic ointment but I do not believe needs oral antibiotics at this time. Two 4 in the healing process for suturing to be appropriate. Chronic venous stasis changes Lab Test results independently reviewed as above. Pertinent findings: CBC shows a white count at 11.2 with no left shift. Chronic stable anemia Chemistries show no acute renal failure, bilirubin elevated at 3.4, AST elevated at 77 ALT and alk-phos are normal Lactic Is elevated at 2.7 Lipase is not significantly elevated Procalcitonin is normal Alcohol level is 416 Independently reviewed EKG: Sinus tach at 1:06 a.m., no ischemic changes Imaging studies independently reviewed: CT scan of the head does not show intracranial bleeding CT scan of the neck does not show acute fracture Chest x-ray does not show acute abnormality Treatments: 1 Mg of IV Ativan for agitation Re-evaluations: 1200 patient is re-evaluated. Discussion regarding what he would like to do from this point. Main issue currently is intoxication. There is no acute infection and no need for antibiotics. He is unsure if he wants to stay in the hospital to help with alcohol withdrawal at this time. He is significantly intoxicated, we will revisit this question as he begins to sober Discussion: Alcohol use disorder, acute alcohol intoxication, evolving social situation and living conditions with his continued alcohol use, multiple visits from paramedics concerned with safety at home. 420pm patient is more able to carry on a conversation at this time. He would like to stay in the hospital to stop drinking and help with his alcohol withdrawal symptoms. Currently is still intoxicated enough that he has not having dramatic withdrawal symptoms. It appears his last hospitalization for same was January of 2025. Will review findings with the hospitalist Discharge Plan Departure Patient Disposition: Admitted as Observation Clinical Impression: Unable to care for self, Falling Alcohol intoxication Qualifiers: Complication of substance-induced condition: uncomplicated Qualified Code(s): F 10.920 - Alcohol use, unspecified with intoxication, uncomplicated Alcohol withdrawal Qualifiers: Complication of substance-induced condition: with unspecified complication Q ualified Code(s): F10.939 - Alcohol use, unspecified with withdrawal, unspecified Laceration of knee Qualifiers: Encounter type: initial encounter Laterality: left Qualified Code(s): S81.012A - Laceration without foreign body, left knee, initial encounter Prescriptions: No Action pregabalin 75 mg capsule 75 mg PO TID Patient Comments: TAKE ONE CAPSULE BY MOUTH THREE TIMES DAILY furosemide [Lasix] 40 mg tablet 40 mg PO DAILY Qty: 30 0RF spironolactone 25 mg tablet 25 mg PO DAILY Qty: 30 0RF ertapenem 1 gram recon soln 1 g IM Q24H Qty: 10 0RF furosemide [Lasix] 40 mg tablet 40 mg PO DAILY Qty: 30 0RF spironolactone 25 mg tablet 25 mg PO DAILY Qty: 30 0RF Referrals: Mario Cutler MD [Primary Care Provider] -
--- NOTE | 2025-02-23 09:38 | EKG_ITS ---
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
--- NOTE | 2025-02-23 09:38 | DI.CT.S_ITS ---
PROCEDURE: CT HEAD/BRAIN WO CON INDICATIONS: fell, intoxicated TECHNIQUE: Noncontrast 4.5 mm thick angled axial sections acquired from the foramen magnum to the vertex, with coronal and sagittal reformats. For radiation dose reduction, the following was used: automated exposure control, adjustment of mA and/or kV according to patient size. COMPARISON: [facility], CT, CT HEAD/BRAIN WO CON, 11/26/2024, 0:18. FINDINGS: Image quality: Diagnostic CSF spaces: Basal cisterns are patent. Lateral ventricles are symmetric. Volume: Vascular calcifications. Periventricular white matter disease is commonly seen with chronic microangiopathy. Volume loss is present. These findings are mild Brain: No intracranial hemorrhage. Pinzon-white differentiation is grossly maintained. Craniofacial structures: Mild paranasal sinus mucosal thickening. IMPRESSION: No acute intracranial pathology. Dictated by: Roberto Carlos Arellano M.D. on 02/23/2025 at 10:04 Approved by: Roberto Carlos Arellano M.D. on 02/23/2025 at 10:05
--- NOTE | 2025-02-23 09:38 | DI.CT.S_ITS ---
PROCEDURE: CT CERVICAL SPINE WO CON INDICATIONS: fell, intoxicated TECHNIQUE: Noncontrast 3 mm thick sections acquired from the skull base to the T4 level. Sagittal and coronal reformats were then constructed. For radiation dose reduction, the following was used: automated exposure control, adjustment of mA and/or kV according to patient size. COMPARISON: None. FINDINGS: Image quality: Diagnostic Bones: [id number] spondylotic changes with disc space height loss most significant at C6-C7. There are osteophytes particularly at this level. Vertebral body heights are well maintained. There is no traumatic subluxation. Soft tissues: No atypical pneumothorax. No pathologic prevertebral soft tissue thickening. IMPRESSION: No displaced fracture or traumatic subluxation. [id number] spondylosis. If there is high concern for further derangement, consider MRI evaluation. Dictated by: Roberto Carlos Arellano M.D. on 02/23/2025 at 10:05 Approved by: Roberto Carlos Arellano M.D. on 02/23/2025 at 10:06
--- NOTE | 2025-02-23 09:38 | DI.RAD.S_ITS ---
PROCEDURE: XR CHEST 1V INDICATIONS: falling TECHNIQUE: One view of the chest was acquired. COMPARISON: [facility], [place], XR CHEST 1V, 01/20/2025, 13:33. [facility], [place], XR CHEST FOR PICC 1V, 12/21/2024, 13:46. FINDINGS AND IMPRESSION: No dense airspace disease or pleural effusions on this single view study. Heart size is within normal limits, unchanged. No significant osseous finding. If there is high concern for occult injury, consider repeat radiography or cross-sectional imaging. Dictated by: Roberto Carlos Arellano M.D. on 02/23/2025 at 10:41 Approved by: Roberto Carlos Arellano M.D. on 02/23/2025 at 10:41
[2025-02-23 09:50] LABS: Add Manual Diff / Slide Review NO; Basophils Absolute Auto 100 /uL (0-100); Basophils Percent Auto 0.6 % (0-2); Eosinophils Absolute Auto 300 /uL (0-450); Eosinophils Percent Auto 2.3 % (2-4); Hematocrit 32.3 % (41-53); Hemoglobin 10.7 g/dL (13.5-17.5); Lymphocytes Absolute Auto 3400 /uL (1100-4500); Lymphocytes Percent Auto 30.5 % (25-40); Mean Corpuscular HGB Conc 33.1 % (30-36); Mean Corpuscular Hemoglobin 26.8 PG (26-34); Monocytes Absolute Auto 1700 /uL (0-900); Monocytes Percent Auto 15.5 % (3-14); Neutrophils Absolute Auto 5700 /uL (1500-7000); Neutrophils Percent Auto 51.1 % (50-75); Platelet Count 77 X10^3/uL (150-400); Red Blood Cell Count 3.98 X10^6/uL (4.5-5.9); Red Cell Distribution Width 19.4 % (11.6-14.8); White Blood Cell Count 11.2 X10^3/uL (4.5-11.0)
[2025-02-23 09:52] LABS: Appearance Urine UA CLEAR; Bilirubin Urine UA NEGATIVE (NEGATIVE); Color Urine UA YELLOW; Glucose Urine UA NEGATIVE (Negative); Ketones Urine UA NEGATIVE (NEGATIVE); Leukocyte Esterase Urine UA NEGATIVE (NEGATIVE); Nitrite Urine UA NEGATIVE (Negative); Occult Blood Urine UA NEGATIVE (Negative); Protein Urine UA NEGATIVE (Negative)
[2025-02-23 09:54] LABS: Urine Volume 10mL (spun)
[2025-02-23 09:55] LABS: Bacteria Urine None Seen; Culture Indicated Urine Cult Not Indicated; RBC Urine None Seen (0-5/HPF); Squamous Epithelial Cell Urine None Seen (0-5/HPF); WBC Urine None Seen (0-5/HPF)
[2025-02-23 09:59] LABS: Lactate (Lactic Acid) 2.7 mmol/L (0.7-2.1)
[2025-02-23 10:00] LABS: Alanine Aminotransferase 29 IU/L (<50); Albumin 4.6 g/dL (3.5-5.0); Alkaline Phosphatase 126 U/L (38-126); Aspartate Aminotransferase 77 IU/L (17-59); BUN Creatinine Ratio 9.3 (6-22); Bilirubin Total 3.4 mg/dL (0.2-1.3); Blood Urea Nitrogen 10 mg/dL (9-20); Calcium 9.1 mg/dL (8.4-10.2); Carbon Dioxide 18 mmol/L (22-32); Chloride 108 mmol/L (98-107); Estimated Glomerular Filt Rate > 60 mL/min (>60); Globulin 4.4 g/dL (1.7-4.1); Glucose 149 mg/dL (70-100); HEMOLYSIS < 15 (0-50); Lipase 203 U/L (23-300); Magnesium 1.7 mg/dL (1.6-2.3); Potassium 4.1 mmol/L (3.4-5.1); Sodium 144 mmol/L (137-145)
[2025-02-23 10:04] LABS: PTT Partial Thromboplastin Tim 77 SECONDS (25.1-36.5)
[2025-02-23 10:08] LABS: NT-proBNP (BNP-Adult 18+) < 20 pg/mL (<125)
[2025-02-23 10:12] LABS: Troponin I < 0.012 ng/mL (0.01-0.034)
[2025-02-23 10:13] LABS: INR 1.5 (0.9-1.3); Prothrombin Time 16.5 SECONDS (9.4-12.5)
[2025-02-23 10:16] LABS: Procalcitonin 0.086 ng/mL (<0.5)
[2025-02-23 10:17] LABS: Ethanol (ETOH) 416 mg/dL
[2025-02-23] MEDS: LORazepam 2 MG/ML INJ 1 MG IV (10:22)
[2025-02-23] MEDS: BACITRACIN OINT 0.9 GM PCKT 1 APPLIC TOP (11:30)
[2025-02-23 11:35] LABS: Reflexed Lactate in 2 Hours Y
--- NOTE | 2025-02-23 12:05 | PC.NURSE ---
Pt lying back in [facility]. Eyes closed. Assume asleep.
[2025-02-23 12:53] LABS: Lactate 2HR (Lactic Acid Rflx) 1.6 mmol/L (0.7-2.1)
--- NOTE | 2025-02-23 15:08 | PC.NURSE ---
[place]. Appears in NAD. Eyes closed, assume asleep.
--- NOTE | 2025-02-23 17:11 | PC.NURSE ---
Assisted pt to standing. Pt very unsteady on feet. Requiring 2 person assist to BR. Using WC to return room. Pt provided food for pt. Pt calm and cooperative with cares.
--- NOTE | 2025-02-23 17:28 | P.HP_ITS ---
History of Present Illness History of Present Illness Date Patient Seen: 02/23/25 Chief complaint: Fall, L Knee Pain Narrative: The patient was a 49-year-old male All else reviewed and otherwise unremarkable except as noted in the history and physical. This disorder and a ongoing foot infection. The patient was brought to the ER earlier today for falling. He was intoxicated upon arrival. He has been seen once prior and discharge with oral medications. The patient was not been taking routine medications. The patient does have evidence of chronic, red, and warm legs. The patient was said to have been drinking constantly at home. EMS noted that the home was a mess. There was food out that was apparently spoiled and maggots were also seen per the emergency physician report. The patient was unstable in his feet and intoxicated and we will be admitted for observation. He does have a history of withdrawal syndrome as well. He has been on IV antibiotics until about a week ago for his foot infection and probable osteo. He still has a ulcer on the base of the right foot. This is improved but still present. He was not sure what the plan is moving forward. He was being followed by [facility]. He notes that he was feeling anxious and jittery and feels that he was now slipping into early withdrawal symptoms. [facility] Medical History Hepatosplenomegaly Portal hypertension Hepatosplenomegaly Foot osteomyelitis, right Neuropathic foot ulcer Decreased libido Erectile dysfunction Alcohol abuse (~2017) Low back pain (Unknown) Polyneuropathy (Unknown) Acne (Unknown) Hypertension (2004) Essential hypertension (09/12/16) Surgical History H/O surgical amputation of finger Hx of cholecystectomy (2001) Family History Grandmother Mental health problem Grandfather Cancer Grandmother Cancer Mother History of back problems Father Amputation leg, bilat Social History household members: spouse and family Smoking Status: Current every day smoker Tobacco: How many years used: 1 Smokeless tobacco user: chewing tobacco (many, many years) alcohol intake: current substance use type: does not use Meds Home Medications and Allergies Home Medications Medication Instructions Recorded Confirmed Type pregabalin 75 mg capsule 75 mg PO TID 09/26/22 12/20/24 History furosemide 40 mg tablet (Lasix) 40 mg PO DAILY #30 tabs 11/18/24 12/20/24 Rx spironolactone 25 mg tablet 25 mg PO DAILY #30 tabs 11/18/24 12/20/24 Rx ertapenem 1 gram solution for 1 g IM Q24H #10 ea 01/05/25 Rx injection furosemide 40 mg tablet (Lasix) 40 mg PO DAILY #30 tabs 01/11/25 Rx spironolactone 25 mg tablet 25 mg PO DAILY #30 tabs 01/11/25 Rx Allergies Allergy/AdvReac Type Severity Reaction Status Date / Time No Known Drug Allergies Allergy Verified 02/23/25 08:33 Review of Systems Review of Systems Narrative: Not obtainable due to intoxication. Exam Vital Signs (past 8 hours): - 02/23/25 09:30 02/23/25 09:39 02/23/25 12:00 Pulse Rate 108 H 68 Respiratory Rate 16 Blood Pressure 124/65 145/78 H Pulse Oximetry 99 98 Oxygen Delivery Method Room Air 02/23/25 14:01 02/23/25 15:00 Pulse Rate 66 69 Respiratory Rate 19 19 Blood Pressure 133/78 133/78 Pulse Oximetry 99 98 Oxygen Delivery Method Room Air Room Air Oxygen Delivery Method Room Air Narrative Exam Narrative: NAD, alert and oriented, fluent speech, calm. Malodorous, unkempt, and shaky. Normocephalic skull, EOMI, anicteric sclera, symmetric pupils. Oropharynx unremarkable, no droop. Neck supple, midline trachea, no adenopathy. Lungs clear, normal rate and effort. Heart regular, no murmur gallop or rub. Abdomen is soft, non distended and non tender. Extremities are free of edema. Skin is free of rash or lesions. Healing ulcer in the base of the right foot below the 5th and 4th toe. Joints are not swollen or deformed. Judgment appears to be abnormal. Objective ECG Impression: Sinus tachycardia Imaging Multiple studies:: Radiologist's impression: Head CT: No acute intracranial pathology. Cervical spine CT: No displaced fracture or traumatic subluxation. [id number] spondylosis. If there is high concern for further derangement, consider MRI evaluation. Chest x-ray: No dense airspace disease or pleural effusions on this single view study. Heart size is within normal limits, unchanged. No significant osseous finding. If there is high concern for occult injury, consider repeat radiography or cross-sectional imaging. Labs 02/23/25 08:00 02/23/25 09:37 Labs: Laboratory Results - last 24 hr 02/23/25 02/23/25 02/23/25 08:00 08:20 08:34 WBC 11.2 H RBC 3.98 L Hgb 10.7 L Hct 32.3 L MCV 81.0 MCH 26.8 MCHC 33.1 RDW 19.4 H Plt Count 77 L Neut % (Auto) 51.1 Lymph % (Auto) 30.5 [place] % (Auto) 15.5 H Eos % (Auto) 2.3 Baso % (Auto) 0.6 Neut # (Auto) 5700 Lymph # (Auto) 3400 [place] # (Auto) 1700 H Eos # (Auto) 300 Baso # (Auto) 100 PT INR APTT 77 H* Sodium Potassium Chloride Carbon Dioxide BUN Creatinine Estimated GFR BUN/Creatinine Ratio Glucose Lactate Calcium Magnesium Total Bilirubin AST ALT Alkaline Phosphatase Troponin I < 0.012 NT-Pro-B Natriuret Pep Total Protein Albumin Globulin Albumin/Globulin Ratio Lipase Procalcitonin Urine Color Yellow Urine Appearance Clear Urine pH 6.0 Ur Specific [place] 1.010 Urine Protein Negative Urine Glucose (UA) Negative Urine Ketones Negative Urine Occult Blood Negative Urine Nitrate Negative Urine Bilirubin Negative Urine Urobilinogen 1.0 Ur Leukocyte Esterase Negative Urine RBC None seen Urine WBC None seen Ur Squamous Epith Cells None seen Urine Bacteria None seen Ur Culture Indicated? Cult not indicated Vol Urine Centrifuged 10ml (spun) Ethyl Alcohol 02/23/25 02/23/25 02/23/25 09:37 09:38 12:25 WBC RBC Hgb Hct MCV MCH MCHC RDW Plt Count Neut % (Auto) Lymph % (Auto) [place] % (Auto) Eos % (Auto) Baso % (Auto) Neut # (Auto) Lymph # (Auto) [place] # (Auto) Eos # (Auto) Baso # (Auto) PT 16.5 H INR 1.5 H APTT Sodium 144 Potassium 4.1 Chloride 108 H Carbon Dioxide 18 L BUN 10 Creatinine 1.08 Estimated GFR > 60 BUN/Creatinine Ratio 9.3 Glucose 149 H Lactate 2.7 H 1.6 Calcium 9.1 Magnesium 1.7 Total Bilirubin 3.4 H AST 77 H ALT 29 Alkaline Phosphatase 126 Troponin I NT-Pro-B Natriuret Pep < 20 Total Protein 9.0 H Albumin 4.6 Globulin 4.4 H Albumin/Globulin Ratio 1.0 Lipase 203 Procalcitonin 0.086 Urine Color Urine Appearance Urine pH Ur Specific [place] Urine Protein Urine Glucose (UA) Urine Ketones Urine Occult Blood Urine Nitrate Urine Bilirubin Urine Urobilinogen Ur Leukocyte Esterase Urine RBC Urine WBC Ur Squamous Epith Cells Urine Bacteria Ur Culture Indicated? Vol Urine Centrifuged Ethyl Alcohol 416 H* Assessment & Plan Assessment & Plan narrative: 1. Alcohol intoxication, present on admission and active. 2. Frequent falls, present on admission and active. 3. Lactic acidosis, present on admission and active. This likely relates to acute liver dysfunction and volume depletion. 4. Possible starvation ketoacidosis, present on admission and active. 5. Tobacco use disorder, present on admission and active. Plan: -symptomatic treatment. -Librium scheduled PO START NOW. -IV fluids with dextrose normal saline. -trend lactic acid. -CIWA for inevitable withdrawal symptoms at we will present in the next 6-12 hours. -check CRP and sed rate and reassess foot infection status over the next day. -Nicoderm -he stopped antibiotics for the foot about a week ago, IV ertapenem. We will contact Dr. Shelby tomorrow from Infectious Disease at [facility] to see what his impression of the plan moving forward is. -Wound care consult. Full resuscitation He lives in [place] with his who is also apparently drinking a lot currently. Observation status, anticipate 1 midnight of care. The patient is at a reasonable risk for leaving against medical advice in the next 12 hours. If the patient does progress to alcohol withdrawal he will most certainly then be eligible for inpatient status and will require more time for hospital care. Time-Based Coding :: 35 min spent with patient and on the chart (including review of chart, obtaining history, exam, reviewing outside data, placing orders, documenting exam and treatment plan, and counseling patient) on 02/23. Quality MIPS - Admit I confirm the patient?s Advance Care Plan is present, Code status is documented, Surrogate decision maker is in patient?s record [If Yes, STOP here]: Yes MIPS - Meds 'Current medications' to include all prescriptions, [id number] products, herbals, cannabis/cannabidiol products, and vitamin/mineral/dietary (nutritional) supplements. I have utilized all available resources to obtain, update, or review the patient?s current medications. [If Yes, STOP here]: Yes
[2025-02-23] MEDS: NICOTINE 21 MG PATCH TOP (18:26)
[2025-02-23] MEDS: chlordiazePOXIDE 25 MG CAPSULE 50 MG PO (18:26)
[2025-02-23 20:31] LABS: Lactate (Lactic Acid) 1.4 mmol/L (0.7-2.1)
[2025-02-23] MEDS: LORazepam 1 MG TABLET 2 MG PO (23:07)
[2025-02-23] MEDS: OXYMETAZOLINE NASAL SPRAY 30 ML 2 SPRAYS NASAL (23:08)
[2025-02-24] MEDS: chlordiazePOXIDE 25 MG CAPSULE 50 MG PO ×4 (00:03→18:51)
[2025-02-24 01:16] VITALS: BP 135/64; PULSE 120; RESP 16; TEMP 36.7; O2SAT 98
[2025-02-24] MEDS: VANCOMYCIN 2,000 MG/400 ML PIGGYBACK 200 MG IV (01:25)
[2025-02-24 01:38] LABS: Acinetobacter calcoa-baumannii Not Detected (Not Detect); Bacteroides fragilis Not Detected (Not Detect); Candida albicans Not Detected (Not Detect); Candida auris Not Detected (Not Detect); Candida glabrata Not Detected (Not Detect); Candida krusei Not Detected (Not Detect); Candida parapsilosis Not Detected (Not Detect); Candida tropicalis Not Detected (Not Detect); Cryptococcus neoformans/gatti Not Detected (Not Detect); Enterobacter cloacae complex Not Detected (Not Detect); Enterobacterales Not Detected (Not Detect); Enterococcus faecalis Not Detected (Not Detect); Enterococcus faecium Not Detected (Not Detect); Haemophilus influenzae Not Detected (Not Detect); Klebsiella aerogenes Not Detected (Not Detect); Listeria monocytogenes Not Detected (Not Detect); Neisseria meningitidis Not Detected (Not Detect); Proteus species Not Detected (Not Detect); Pseudomonas aeruginosa Not Detected (Not Detect); Salmonella species Not Detected (Not Detect); Serratia marcescens Not Detected (Not Detect); Staphylococcus epidermidis Detected (Not Detect); Staphylococcus lugdunensis Not Detected (Not Detect); Staphylococcus species Detected (Not Detect); Stenotrophomonas maltophilia Not Detected (Not Detect); Streptococcus agalactiae (Gr B Not Detected (Not Detect); Streptococcus pneumonia Not Detected (Not Detect); Streptococcus pyogenes (Gr A) Not Detected (Not Detect); Streptococcus species Not Detected (Not Detect); mecA/C Resistance Detected (Not Detect)
[2025-02-24 06:00] VITALS: BP 143/74; PULSE 115; RESP 20; TEMP 36.8; O2SAT 98
[2025-02-24 06:23] LABS: BUN Creatinine Ratio 12.7 (6-22); Blood Urea Nitrogen 10 mg/dL (9-20); Calcium 9.1 mg/dL (8.4-10.2); Carbon Dioxide 19 mmol/L (22-32); Chloride 108 mmol/L (98-107); Estimated Glomerular Filt Rate > 60 mL/min (>60); Glucose 126 mg/dL (70-100); HEMOLYSIS < 15 (0-50); Potassium 4.1 mmol/L (3.4-5.1); Sodium 138 mmol/L (137-145)
[2025-02-24 06:42] LABS: C-Reactive Protein Quant < 0.5 mg/dL (<1.0)
[2025-02-24 07:02] LABS: Add Manual Diff / Slide Review NO; Basophils Absolute Auto 0 /uL (0-100); Basophils Percent Auto 0.4 % (0-2); Eosinophils Absolute Auto 100 /uL (0-450); Eosinophils Percent Auto 1.6 % (2-4); Hematocrit 26.7 % (41-53); Hemoglobin 9.1 g/dL (13.5-17.5); Lymphocytes Absolute Auto 900 /uL (1100-4500); Lymphocytes Percent Auto 22.9 % (25-40); Mean Corpuscular HGB Conc 34.2 % (30-36); Mean Corpuscular Volume 78.9 fL (80-100); Monocytes Absolute Auto 500 /uL (0-900); Monocytes Percent Auto 13.4 % (3-14); Neutrophils Absolute Auto 2400 /uL (1500-7000); Neutrophils Percent Auto 61.7 % (50-75); Red Blood Cell Count 3.38 X10^6/uL (4.5-5.9); Red Cell Distribution Width 18.5 % (11.6-14.8)
[2025-02-24 07:04] LABS: Platelet Count 36 X10^3/uL (150-400)
[2025-02-24 07:12] LABS: RBC Morphology Normal Morphology
[2025-02-24 07:21] LABS: Erythrocyte Sedimentation Rate 45 MM/HR (0-15)
[2025-02-24 08:00] VITALS: BP 169/86; PULSE 109; RESP 18; TEMP 36.7; O2SAT 99
[2025-02-24] MEDS: NICOTINE 21 MG PATCH TOP (10:00)
[2025-02-24] MEDS: THIAMINE 100 MG TABLET PO (10:00)
[2025-02-24] MEDS: VANCOMYCIN 1,250 MG/250 ML PIGGYBACK 250 MG IV ×2 (10:00→18:51)
[2025-02-24] MEDS: FOLIC ACID 1 MG TABLET PO (10:00)
[2025-02-24] MEDS: MULTIVITAMIN 1 TABLET 1 TAB PO (10:00)
--- NOTE | 2025-02-24 11:10 | PC.NURSE ---
Addendum entered by Angelique Salazar R.N. 02/24/25 15:23: Patient is getting an Echo done at this time. He is npo and has been sleepy today. Addendum entered by Angelique Salazar R.N. 02/24/25 13:24: Patient is npo for possible ortho surgery on his knee today. Original Note: Patient is alert and oriented x4, he is pleasant and cooperative with care. He has some wounds and a small foot ulcer on his top r.foot under little toe that is healing nicely. He recently fell and skinned up his forehead, back of r.neck area, and he has some abrasions to his left. knee. Patient denies pain or discomfort. CIWA score was a 1. Patient will be getting some librium at noon. He is sleeping now and breath sounds are cta.
--- NOTE | 2025-02-24 11:18 | DI.CT.S_ITS ---
PROCEDURE: CT LE LT W CON INDICATIONS: MRSA bacteremia, recent fall L knee lac, r/o foreign body TECHNIQUE: After the administration of intravenous contrast, 3 mm axial sections acquired of the left lower extremity from the knee to the foot, with coronal and sagittal reformats. For radiation dose reduction, the following was used: automated exposure control, adjustment of mA and/or kV according to patient size. COMPARISON: None. FINDINGS: Image quality: Excellent. Bones: No acute fracture or dislocation. No osseous erosions. Joints: The knee, tibiotalar, and subtalar joints are preserved. No significant joint effusions. Muscles: Mild diffuse muscle atrophy. No intramuscular emphysema. No inter fascial fluid. Tendons: The quadriceps and patellar tendon contours are preserved. The flexor and extensor tendons at the level of the ankle/hindfoot are within normal limits. Vessels: Patent arterial vasculature without aneurysmal dilatation. Lymph nodes: No popliteal lymphadenopathy. Other soft tissues: Loss of the fat contours at Kager's fat pad (8/64). Dermal thickening and subcutaneous edema increasing in a progressively dependent manner along the lower extremity. No subcutaneous emphysema. No drainable peripherally enhancing fluid collection. Infrapatellar bursal fluid (8/100). IMPRESSION: 1. Diffuse lower extremity edema and dermal thickening, which can be seen with cellulitis, lymphedema, or venous congestion. 2. No drainable abscess, intramuscular/subcutaneous emphysema, or CT evidence of osteomyelitis. 3. Mild infrapatellar bursitis. 4. Fatty infiltration of Kager's fat pad, a nonspecific finding which can be associated with calf musculature overuse/strain. Dictated by: Jordan Phillips M.D. on 02/24/2025 at 12:13 Approved by: Jordan Phillips M.D. on 02/24/2025 at 12:20
--- NOTE | 2025-02-24 11:22 | DI.ECHO.S_ITS ---
[place] [facility]+ [facility] : : [address] : : [id number] : : Phone: [phone] Echocardiogram Report + + :Name: ANDREI RUST Study Date: 02/24/2025 Height: 70 in : :Hospital ReadingLocation: Weight: 200 lb : : Gender: Male BSA: 2.1 m2 : :: 1975 Age: 49 yrs BP: 143/74 mmHg: :Reason For Study: MRSA BACTEREMIA : :Ordering Physician: IVON, : :BRIAN NIEVES Performed By: Diana Mahajan : :Referring: BRIAN DEL VALLE : + + Interpretation Summary The ejection fraction is estimated to be 65-70%. Diastolic parameters suggest probable normal left ventricular diastolic function and normal filling pressures. The right ventricle is normal in size and function. No significant valvular abnormalities. Pulmonary artery pressures cannot be estimated because of the lack of a measurable TR jet velocity but the IVC suggests a CVP of around 3 mmHg. Procedure: A two-dimensional transthoracic echocardiogram with color flow and Doppler was performed. The study quality was technically adequate. There is no prior echocardiogram noted for this patient. The patient was in sinus tachycardia with heart rates between 88-107 bpm during the exam. Left Ventricle: The left ventricle is normal in size and wall thickness. The ejection fraction is estimated to be 65-70%. Diastolic parameters suggest probable normal left ventricular diastolic function and normal filling pressures. Right Ventricle: The right ventricle is normal in size and function. Atria: The left atrial size is normal. Right atrial size is normal. There is no Doppler evidence for an interatrial shunt. Mitral Valve: The mitral valve is normal. There is trace mitral regurgitation. Aortic Valve: The aortic valve is trileaflet. The aortic valve opens well. There is no aortic valve stenosis. No aortic regurgitation is present. Tricuspid Valve: The tricuspid valve leaflets are thin and pliable. No tricuspid regurgitation. Pulmonary artery pressures cannot be estimated because of the lack of a measurable TR jet velocity but the IVC suggests a CVP of around 3 mmHg. Pulmonic Valve: The pulmonic valve leaflets are thin and pliable; valve motion is normal. There is no pulmonic valvular regurgitation. Great Vessels: The aortic root is normal size. The dimensions of the ascending aorta are normal. The IVC is of normal diameter and collapses greater than 50% with a sniff. This suggests a low right atrial pressure of 3 mm Hg. Pericardium/ Pleura There is no pericardial effusion. There is no pleural effusion. MMode/2D Measurements & Calculations LVIDd: 5.3 cm LVOT diam: 2.1 cm LVIDs: 3.2 cm Ao root diam: 3.1 cm FS: 39.8 % asc Aorta Diam: 2.9 cm IVSd: 0.87 cm LVPWd: 1.1 cm LV bosch. diameter/BSA (cm/m^2): 2.5 LV sys. diameter/BSA (cm/m^2): 1.5 LA A2 area: 20.5 cm2 RA long axis: 5.6 cm LA A4 area: 18.6 cm2 RA area: 15.3 cm2 LA length (vol): 5.8 cm RA vol: 35.2 ml LA vol: 55.5 ml RA : 16.9 ml/m2 LA vol index: 26.6 ml/m2 IVC diam: 1.3 cm RVD1 (basal): 3.3 cm RVD2 (mid): 3.1 cm TAPSE: 2.3 cm Doppler Measurements & Calculations Ao V2 max: 176.3 cm/sec LVOT Max Maikel: 131.7 cm/sec Ao V2 mean: 114.4 cm/sec LV V1 max P.9 mmHg Ao max P.4 mmHg LV V1 VTI: 24.1 cm Ao mean P.0 mmHg VERA(I,D): 2.6 cm2 Ao V2 VTI: 30.7 cm VERA(V,D): 2.5 cm2 sev ratio: 0.78 VERA indexed to BSA (cm^2/m^2): 1.2 MV E max maikel: 89.3 cm/sec PA V2 max: 114.5 cm/sec MV A max maikel: 78.6 cm/sec PA V2 mean: 81.7 cm/sec MV E/A: 1.1 PA mean P.0 mmHg Med Peak E' Maikel: 10.5 cm/sec PA pr(Accel): 9.6 mmHg E/E' med: 8.5 Lat Peak E' Maikel: 9.6 cm/sec E/E' lat: 9.3 E/e' average: 8.9 MV dec time: 0.20 sec MVA(VTI): 3.0 cm2 MV V2 mean: 86.8 cm/sec SV(LVOT): 79.6 ml MV mean P.3 mmHg MV V2 VTI: 26.6 cm Reading Physician:04:47 PM
--- NOTE | 2025-02-24 11:26 | CM.DANOTE ---
Patient is a 49 yo male, resident of [place], is admitted for ETOH withdrawal. Pt has a hx of ETOH use and medication non-compliance. Pt lives in a house with his and mother in law, in which he is the primary caregiver for both. Pt's Primary Care Provider is Dr. Mario Cutler at [facility] and remains established there and insurance is [facility] [employer]. Pt has been noted to drink 6-12 beers a day. Pt has historically had good insight to his use, has accepted [facility] referral during previous ED presentations but pt has not followed through with outpatient plan. Pt would benefit from ETOH treatment at discharge. Pt recently admitted multiple times for osteomyelitis of his foot with [facility] for residential antibiotic treatment recently and just completed his course of IV Abx although he missed a few of his infusion appointments. Pt was seen by Javon at [facility]. SW met bedside with pt and he remembers this SW from his recent multiple admissions and confirms that he was successful with remaining sober for about two weeks with his at home and tried AA once but ultimately did not have any other supportive services in place or formal ETOH tx. Pt ended up relapsing and admitted this time with [facility]+ for ETOH 416. Pt denies any hx of using Medication Assisted Treatment to reduce his drinking or remain sober and now feels this would likely be needed for assist with stopping his alcohol use. Pt stressed about getting home to assist his MIL and his spouse is currently admitted to the hospital as well. SW inquired about POA and he confirms he and spouse have no children and no other local family and no local friends. Their friends are back in [place] where they lived for 7 years and pt's brother lives in [place] but currently deployed to the [facility]. SW strongly encouraged them to consider options for POA since both pt and spouse have ETOH/benzo history. CHRISTIANO left [facility] for Kimo Monge, [employer], to confirm they are still on his caseload as APS report was made due to the state of the home (rotten food with maggots/bugs and many alcohol bottles around). SW working to get pt and spouse in same room for more in-depth discussion on discharge planning needs today. REE Carvalho Discharge Planning/Care Management CM Discharge Assessment Start: 02/24/25 11:14 Freq: Status: Active Protocol: Document 02/24/25 11:14 BF (Rec: 02/24/25 11:24 BF [id number]) Discharge Planning Assessment Assigned Plate And Frame Filter Operator REE Low DPOA/Assigned Designee Name none, informally spouse Advance Directives? No Advance Directives on File No History Provided By Patient,Medical Record Has Patient been admitted in last 30 No days? Comment recently discharged with outpt [facility], ID MD for osteo/infection Prior Living Arrangements House Household Members spouse,family Comment Lives in [facility] with mother inlaw and spouse, both need assist Type of transporation used prior to Drives own vehicle admit Independent with ADL's Yes Is patient alert and oriented? Yes Needs Assistance With Managing Medications,Home Chores / Shopping Caregiver for Another Yes: MIL at home Comment Just completed course of IV Abx at [facility] DME Already Rented / Owned FWW / Walker,Cane Barriers to Discharge Yes Comment Chronic residential ETOH abuse Discharge Plan Home Transportation Arrangement might need taxi Referrals Initiated Other Additional Comment [facility] for MAT for ETOH given Whiteboard Updated in Patient Room with Yes name and ext. # of Plate And Frame Filter Operator Review Status In Process Please Provide Date Initial DC 02/24/25 Assessment Was Performed Next Review Type Continued Stay Review
[2025-02-24 12:00] VITALS: BP 165/93; PULSE 107; RESP 18; TEMP 36.7; O2SAT 99
--- NOTE | 2025-02-24 13:05 | PM.PN.1 ---
Subjective Subjective Interval history: 49 M with recent ESBL bacteremia s/p IV antibiotics as an outpatient admitted for intoxication and withdrawal. Overnight blood cultures were positive for GPC (PCR with MRSA), and he is on vancomycin currently. Discussed with his infectious disease provider today. Source is likely his left knee laceration with bursitis. Recommended Oritavancin or dalbavancin as a one time dose should remainder of his evaluation including repeat blood cultures and TTE be unremarkable. Discussed with orthopedics, formal consult pending but recommended NPO now for possible bursectomy. Exam Vital Signs (past 8 hours): - 02/24/25 06:00 Temperature 98.3 F Pulse Rate 115 H Respiratory Rate 20 Blood Pressure 143/74 H Pulse Oximetry 98 Oxygen Flow Rate 0 Oxygen Delivery Method Room Air Oxygen Flow Rate 0 Narrative Exam Narrative: NAD, alert and oriented, fluent speech, calm. Normocephalic skull, EOMI, anicteric sclera, symmetric pupils. Oropharynx unremarkable, no droop. Neck supple, midline trachea, no adenopathy. Lungs clear, normal rate and effort. Heart regular, no murmur gallop or rub. Abdomen is soft, non distended and non tender. Extremities are free of edema. R foot with healing ulcer over the 1st digit. L leg laceration just inferior to the patella anteriorly, approximated with loosened steri-strips, no tenderness, no purulence, minimal erythema without warmth. mild erythema pre-tibial area, with scab anteriorly. Joints are not swollen or deformed. Judgment appears to be abnormal. Objective Labs 02/24/25 05:37 02/24/25 05:37 Labs: Laboratory Results - last 24 hr 02/23/25 02/24/25 02/24/25 20:00 05:37 10:40 WBC 4.0 L D RBC 3.38 L Hgb 9.1 L Hct 26.7 L MCV 78.9 L MCH 27.0 MCHC 34.2 RDW 18.5 H Plt Count 36 L* Neut % (Auto) 61.7 Lymph % (Auto) 22.9 L [place] % (Auto) 13.4 Eos % (Auto) 1.6 L Baso % (Auto) 0.4 Neut # (Auto) 2400 Lymph # (Auto) 900 L [place] # (Auto) 500 Eos # (Auto) 100 Baso # (Auto) 0 Platelet Estimate RBC Morphology Normal morphology ESR 45 H Sodium 138 Potassium 4.1 Chloride 108 H Carbon Dioxide 19 L BUN 10 Creatinine 0.79 Estimated GFR > 60 BUN/Creatinine Ratio 12.7 Glucose 126 H Lactate 1.4 Calcium 9.1 C-Reactive Protein < 0.5 A.calcoaceticus-baumannii cmplx PCR Not detected Bacteroides fragilis Not detected Adriana albicans (PCR) Not detected Adriana auris (PCR) Not detected C. glabrata (PCR) Not detected C. krusei (PCR) Not detected C. parapsilosis (PCR) Not detected C. tropicalis (PCR) Not detected C. neoform/gattii (PCR) Not detected Enterobacterales (PCR) Not detected E. cloacae complex PCR Not detected Enterococc faecalis PCR Not detected Enterococc faecium PCR Not detected E. coli (PCR) Not detected H. influenzae (PCR) Not detected Klebsiella aerogenes (PCR) Not detected Klebsiella oxytoca PCR Not detected Klebsiella pneumoniae Not detected List. monocytogenes PCR Not detected N. meningitidis (PCR) Not detected Proteus species (PCR) Not detected Salmonella spp. (PCR) Not detected Serratia marcescens PCR Not detected Staphylococcus sp PCR Detected Staph aureus (PCR) Not detected mecA/C & MREJ Resist Gene Not applicable mecA/C-Methicil Resis Gene Detected mcr-1 Colistin Res Gene PCR Not applicable Staph epidermidis (PCR) Detected Staph lugdunensis PCR Not detected S. maltophilia (PCR) Not detected Streptococcus sp PCR Not detected Group A Strep (PCR) Not detected Strep agalactiae (PCR) Not detected Strep pneumoniae (PCR) Not detected P. aeruginosa (PCR) Not detected Celina/B-Vanco Res Genes Not applicable blaIMP Car res Gene PCR Not applicable KPC-Carbap Res Gene PCR Not applicable blaNDM Car Res Gene PCR Not applicable OXA-48 Carbapenem Resis Gene (PCR) Not applicable blaVIM Car Res Gene PCR Not applicable CTX-M Gene Resistance (PCR) Not applicable [facility] Medical History Hepatosplenomegaly Portal hypertension Hepatosplenomegaly Foot osteomyelitis, right Neuropathic foot ulcer Decreased libido Erectile dysfunction Alcohol abuse (~2016) Low back pain (Unknown) Polyneuropathy (Unknown) Acne (Unknown) Hypertension (2004) Essential hypertension (09/12/16) Surgical History H/O surgical amputation of finger Hx of cholecystectomy (2001) Family History Grandmother Mental health problem Grandfather Cancer Grandmother Cancer Mother History of back problems Father Amputation leg, bilat Social History household members: spouse and family Smoking Status: Current every day smoker Tobacco: How many years used: 1 Smokeless tobacco user: chewing tobacco (many, many years) alcohol intake: current substance use type: does not use Assessment & Plan Assessment & Plan narrative: 1. L prepatellar bursitis and cellulitis with Gram Positive bacteremia 2. Alcohol intoxication and withdrawal, present on admission and active.. 3. Tobacco use disorder, present on admission and active. Plan: - Continue IV vancomycin per pharmacy. Discussed with his outpatient ID provider Dr. Jensen at [facility]. If negative TTE and cultures clear quickly recommended dalbavancin or oritavancin given his social history. Will need to figure out if a long lasting antibiotic such as dalbavancin or oritavancin is obtainable here. If not consider if this can be done as an outpatient. - Appreciate orthopedic consultation and discussed with arson investigator provider this afternoon, will make NPO now for possible bursectomy. - follow up final blood cultures, repeat ordered today 02/24. PCR positive for Staph with MecA gene indicative of MRSA. - TTE to rule out any obvious vegetation. - withdrawal appears well controlled today with librium, will continue current dosing, plan on taper over the next few days. Full resuscitation He lives in [place] with his who is also apparently drinking a lot currently (also admitted to the hospital but possibly discharging later today). changed to inpatient today with his bacteremia. Likely discharge home in 2-3 days, possible transfer for above antibiotic. Time-Based Coding :: [TOTAL MINUTES] spent with patient and on the chart (including review of chart, obtaining history, exam, reviewing outside data, placing orders, documenting exam and treatment plan, and counseling patient) on [DATE]. Quality VTE Deep Vein Thrombosis/Pulmonary Embolism Present on Admission: No
--- NOTE | 2025-02-24 15:51 | PM.CN ---
History of Present Illness Consult details Date Patient Seen: 02/24/25 Time Patient Seen: 15:30 Chief complaint: Fall, L Knee Pain Narrative: The patient is a 49-year-old male with alcoholism, hepatosplenomegaly, poorly hypertension, in neuropathy who was admitted yesterday after having a fall. The patient sustained wound to his left lower extremity. He has a neuropathic ulcers involving right 5th metatarsal head and left heel. He was seen at the wound center February 01, 2025 and started on dressing changes with Hydrofera blue with felt surround pad and postop surgical shoes for pressure offloading. He reports that he has been doing dressing changes. Previous imaging studies from December 2024 showed findings consistent with osteomyelitis involving the right 5th metatarsal head. The patient has completed a course of ertapenem and is not currently on any antibiotic therapy. The patient denies having any pain associated with his ulcers nor has he noted any recent redness or drainage. He has not had any fever or chills. He reports a poor appetite and has not been taking protein supplements. He has continued to drink alcohol and was intoxicated upon admission yesterday. Arterial Doppler from January 04 2025 showed no hemodynamically significant stenosis. The patient does not smoke cigarettes. Previous culture of the right foot grew E. coli. Meds Home Medications and Allergies Home Medications Medication Instructions Recorded Confirmed Type pregabalin 75 mg capsule 75 mg PO TID 09/26/22 02/24/25 History furosemide 40 mg tablet (Lasix) 40 mg PO DAILY #30 tabs 11/18/24 02/24/25 Rx spironolactone 25 mg tablet 25 mg PO DAILY #30 tabs 11/18/24 02/24/25 Rx Allergies Allergy/AdvReac Type Severity Reaction Status Date / Time No Known Drug Allergies Allergy Verified 02/23/25 08:33 Review of Systems Cardiovascular Comments: No chest pain Respiratory Comments: Shortness of breath with exertion Integumentary/Breasts Comments: Lower extremity swelling Neurologic Comments: Decreased sensation both feet Exam Vital Signs (past 8 hours): - 02/24/25 08:00 02/24/25 12:00 Temperature 98.0 F 98.0 F Pulse Rate 109 H 107 H Respiratory Rate 18 18 Blood Pressure 169/86 H 165/93 H Pulse Oximetry 99 99 Oxygen Flow Rate 0 0 Oxygen Delivery Method Room Air Oxygen Flow Rate 0 Narrative Exam Narrative: Well-developed well-nourished male who is alert and oriented, no apparent distress Skin Other: Open wound with eschar over left anterior tibia Neuropathic ulcer left heel improved since last seen at wound center, no sign of active infection Neuropathic ulcer right 5th metatarsal head improved since last seen at wound center, no sign of active infection Neuro Other: Decreased sensation both feet Extrem Other: Swelling both lower extremities Objective Labs 02/24/25 05:37 02/24/25 05:37 Labs: Laboratory Results - last 24 hr 02/23/25 02/24/25 02/24/25 20:00 05:37 10:40 WBC 4.0 L D RBC 3.38 L Hgb 9.1 L Hct 26.7 L MCV 78.9 L MCH 27.0 MCHC 34.2 RDW 18.5 H Plt Count 36 L* Neut % (Auto) 61.7 Lymph % (Auto) 22.9 L [place] % (Auto) 13.4 Eos % (Auto) 1.6 L Baso % (Auto) 0.4 Neut # (Auto) 2400 Lymph # (Auto) 900 L [place] # (Auto) 500 Eos # (Auto) 100 Baso # (Auto) 0 Platelet Estimate RBC Morphology Normal morphology ESR 45 H Sodium 138 Potassium 4.1 Chloride 108 H Carbon Dioxide 19 L BUN 10 Creatinine 0.79 Estimated GFR > 60 BUN/Creatinine Ratio 12.7 Glucose 126 H Lactate 1.4 Calcium 9.1 C-Reactive Protein < 0.5 A.calcoaceticus-baumannii cmplx PCR Not detected Bacteroides fragilis Not detected Adriana albicans (PCR) Not detected Adriana auris (PCR) Not detected C. glabrata (PCR) Not detected C. krusei (PCR) Not detected C. parapsilosis (PCR) Not detected C. tropicalis (PCR) Not detected C. neoform/gattii (PCR) Not detected Enterobacterales (PCR) Not detected E. cloacae complex PCR Not detected Enterococc faecalis PCR Not detected Enterococc faecium PCR Not detected E. coli (PCR) Not detected H. influenzae (PCR) Not detected Klebsiella aerogenes (PCR) Not detected Klebsiella oxytoca PCR Not detected Klebsiella pneumoniae Not detected List. monocytogenes PCR Not detected N. meningitidis (PCR) Not detected Proteus species (PCR) Not detected Salmonella spp. (PCR) Not detected Serratia marcescens PCR Not detected Staphylococcus sp PCR Detected Staph aureus (PCR) Not detected mecA/C & MREJ Resist Gene Not applicable mecA/C-Methicil Resis Gene Detected mcr-1 Colistin Res Gene PCR Not applicable Staph epidermidis (PCR) Detected Staph lugdunensis PCR Not detected S. maltophilia (PCR) Not detected Streptococcus sp PCR Not detected Group A Strep (PCR) Not detected Strep agalactiae (PCR) Not detected Strep pneumoniae (PCR) Not detected P. aeruginosa (PCR) Not detected Celina/B-Vanco Res Genes Not applicable blaIMP Car res Gene PCR Not applicable KPC-Carbap Res Gene PCR Not applicable blaNDM Car Res Gene PCR Not applicable OXA-48 Carbapenem Resis Gene (PCR) Not applicable blaVIM Car Res Gene PCR Not applicable CTX-M Gene Resistance (PCR) Not applicable PFSH Medical History Hepatosplenomegaly Portal hypertension Hepatosplenomegaly Foot osteomyelitis, right Neuropathic foot ulcer Decreased libido Erectile dysfunction Alcohol abuse (~2016) Low back pain (Unknown) Polyneuropathy (Unknown) Acne (Unknown) Hypertension (2004) Essential hypertension (09/12/16) Surgical History H/O surgical amputation of finger Hx of cholecystectomy (2001) Family History Grandmother Mental health problem Grandfather Cancer Grandmother Cancer Mother History of back problems Father Amputation leg, bilat Social History household members: spouse and family Tobacco & Substance Use Smoking Status: Current every day smoker Tobacco: How many years used: 1 Smokeless tobacco user: chewing tobacco (many, many years) alcohol intake: current substance use type: does not use Assessment & Plan Assessment and plan (1) Neuropathy: Status: None (2) Swelling of both lower extremities: Status: Acute (3) Non-pressure chronic ulcer of right heel and midfoot with fat layer exposed: Status: Acute (4) Non-pressure chronic ulcer of left heel and midfoot with fat layer exposed: Status: Acute (5) Unspecified open wound, left lower leg, initial encounter: Status: Acute Assessment & Plan narrative: Neuropathic ulcers involving right foot and left heel are improved since last seen in wound center and do not appear to have acute infection. Traumatic wound anterior left lower extremity with dry eschar. Recommend continuing dressing changes with Hydrofera blue to both neuropathic ulcers and paint the eschar left lower extremity with Betadine each day and allow to air dry. Start protein supplementation. Continue pressure offloading with postop surgical shoes and felt surround pad. Follow up at wound center after discharge. Time-Based Coding :: [45 MINUTES] spent with patient and on the chart (including review of chart, obtaining history, exam, reviewing outside data, placing orders, documenting exam and treatment plan, and counseling patient) on [02/24/25].
[2025-02-24 16:00] VITALS: BP 141/82; PULSE 101; RESP 16; TEMP 36.7; O2SAT 99
[2025-02-24] MEDS: ACETAMINOPHEN 325 MG TABLET 650 MG PO (17:42)
--- NOTE | 2025-02-24 19:07 | PM.HP.1 ---
History of Present Illness History of Present Illness Date Patient Seen: 02/24/25 Time Patient Seen: 19:07 Date of Onset of Symptoms: 02/23/25 Chief complaint: Fall, L Knee Pain Narrative: This is a 49-year-old gentleman who was admitted with a fall and some alcohol withdrawal issues. Who had an injury to his left knee. He was admitted to the hospitalist service and stabilized. He did have blood cultures which were positive for staph aureus. Workup revealed some lesions on bilateral lower extremities a laceration on the left knee and a chronic sore on his right foot and orthopedic consultation was requested to make sure that there is not any infections which require surgical intervention. He said that the laceration on his left knee was related to a fall. Some abrasions on his tibia were also related to a fall and he has had some chronic problems with his right foot. He has not a diabetic. [facility] Medical History Hepatosplenomegaly Portal hypertension Hepatosplenomegaly Foot osteomyelitis, right Neuropathic foot ulcer Decreased libido Erectile dysfunction Alcohol abuse (~2016) Low back pain (Unknown) Polyneuropathy (Unknown) Acne (Unknown) Hypertension (2004) Essential hypertension (09/12/16) Surgical History H/O surgical amputation of finger Hx of cholecystectomy (2001) Family History Grandmother Mental health problem Grandfather Cancer Grandmother Cancer Mother History of back problems Father Amputation leg, bilat Social History household members: spouse and family Smoking Status: Current every day smoker Tobacco: How many years used: 1 Smokeless tobacco user: chewing tobacco (many, many years) alcohol intake: current substance use type: does not use Meds Home Medications and Allergies Home Medications Medication Instructions Recorded Confirmed Type pregabalin 75 mg capsule 75 mg PO TID 09/26/22 02/24/25 History furosemide 40 mg tablet (Lasix) 40 mg PO DAILY #30 tabs 11/18/24 02/24/25 Rx spironolactone 25 mg tablet 25 mg PO DAILY #30 tabs 11/18/24 02/24/25 Rx Allergies Allergy/AdvReac Type Severity Reaction Status Date / Time No Known Drug Allergies Allergy Verified 02/23/25 08:33 Review of Systems Review of Systems Narrative: No significant recent fever or chills, social history as is also admitted Exam Vital Signs (past 8 hours): - 02/24/25 12:00 02/24/25 16:00 Temperature 98.0 F 98.0 F Pulse Rate 107 H 101 H Respiratory Rate 18 16 Blood Pressure 165/93 H 141/82 H Pulse Oximetry 99 99 Oxygen Flow Rate 0 0 Oxygen Delivery Method Room Air Oxygen Flow Rate 0 Narrative Exam Narrative: He is alert he is oriented HEENT is remarkable for for him laceration, his neck is supple, he is full range motion of bilateral knees, the left knee there is a transverse laceration on the anterior aspect of the knee there is no specific fluctuance there is a soft tissue wound but it does not appear to be acutely infected, there is no significant joint effusion or significant swelling in either the prepatellar bursa were pretibial bursa, on the left leg there are 2 pretibial wounds with dry eschar and minimal erythema no obvious severe cellulitis or fluctuance, right foot shows a 5th metatarsal foot ulcer which does not appear to be full-thickness, there was no significant proximal erythema or significant fluctuance in the right foot minimal pain with MTP range of motion 5th toe Objective Labs 02/24/25 05:37 02/24/25 05:37 Labs: Laboratory Results - last 24 hr 02/23/25 02/24/25 02/24/25 20:00 05:37 10:40 WBC 4.0 L D RBC 3.38 L Hgb 9.1 L Hct 26.7 L MCV 78.9 L MCH 27.0 MCHC 34.2 RDW 18.5 H Plt Count 36 L* Neut % (Auto) 61.7 Lymph % (Auto) 22.9 L [place] % (Auto) 13.4 Eos % (Auto) 1.6 L Baso % (Auto) 0.4 Neut # (Auto) 2400 Lymph # (Auto) 900 L [place] # (Auto) 500 Eos # (Auto) 100 Baso # (Auto) 0 Platelet Estimate RBC Morphology Normal morphology ESR 45 H Sodium 138 Potassium 4.1 Chloride 108 H Carbon Dioxide 19 L BUN 10 Creatinine 0.79 Estimated GFR > 60 BUN/Creatinine Ratio 12.7 Glucose 126 H Lactate 1.4 Calcium 9.1 C-Reactive Protein < 0.5 A.calcoaceticus-baumannii cmplx PCR Not detected Bacteroides fragilis Not detected Adriana albicans (PCR) Not detected Adriana auris (PCR) Not detected C. glabrata (PCR) Not detected C. krusei (PCR) Not detected C. parapsilosis (PCR) Not detected C. tropicalis (PCR) Not detected C. neoform/gattii (PCR) Not detected Enterobacterales (PCR) Not detected E. cloacae complex PCR Not detected Enterococc faecalis PCR Not detected Enterococc faecium PCR Not detected E. coli (PCR) Not detected H. influenzae (PCR) Not detected Klebsiella aerogenes (PCR) Not detected Klebsiella oxytoca PCR Not detected Klebsiella pneumoniae Not detected List. monocytogenes PCR Not detected N. meningitidis (PCR) Not detected Proteus species (PCR) Not detected Salmonella spp. (PCR) Not detected Serratia marcescens PCR Not detected Staphylococcus sp PCR Detected Staph aureus (PCR) Not detected mecA/C & MREJ Resist Gene Not applicable mecA/C-Methicil Resis Gene Detected mcr-1 Colistin Res Gene PCR Not applicable Staph epidermidis (PCR) Detected Staph lugdunensis PCR Not detected S. maltophilia (PCR) Not detected Streptococcus sp PCR Not detected Group A Strep (PCR) Not detected Strep agalactiae (PCR) Not detected Strep pneumoniae (PCR) Not detected P. aeruginosa (PCR) Not detected Celina/B-Vanco Res Genes Not applicable blaIMP Car res Gene PCR Not applicable KPC-Carbap Res Gene PCR Not applicable blaNDM Car Res Gene PCR Not applicable OXA-48 Carbapenem Resis Gene (PCR) Not applicable blaVIM Car Res Gene PCR Not applicable CTX-M Gene Resistance (PCR) Not applicable CT scan left lower extremity shows some mild pretibial edema Assessment & Plan Assessment and plan (1) Unspecified open wound, left lower leg, initial encounter: Status: Acute (2) Non-pressure chronic ulcer of left heel and midfoot with fat layer exposed: Status: Acute (3) Laceration of knee: Qualifiers: Encounter type: initial encounter Laterality: left Qualified Code(s): S81.012A - Laceration without foreign body, left knee, initial encounter Status: Acute (4) Falling: Status: Acute (5) Alcohol withdrawal: Qualifiers: Complication of substance-induced condition: with unspecified complication Qualified Code(s): F10.939 - Alcohol use, unspecified with withdrawal, unspecified Status: Acute (6) Unable to care for self: Status: Acute Plan He did have a positive blood culture. I think he needs treatment with IV antibiotics. I do not see any lesions which appear to have drainable infection. He does have a laceration on his left knee but I would recommend against any primary repair because of his positive blood cultures. It has a fairly small laceration which I think likely will heal with granulation tissue. He is on the medical service and is being stabilized for his sepsis and his alcohol withdrawal. He can be weight-bearing as tolerated on bilateral lower extremities. We temporarily kept him NPO until I could evaluate him I do not think he will require any operative intervention and he can resume regular diet. It is okay for him to mobilize with physical therapy weight-bearing as tolerated on bilateral lower extremities. Time-Based Coding :: [TOTAL MINUTES] spent with patient and on the chart (including review of chart, obtaining history, exam, reviewing outside data, placing orders, documenting exam and treatment plan, and counseling patient) on [DATE]. Quality VTE Deep Vein Thrombosis/Pulmonary Embolism Present on Admission: No
[2025-02-24 20:00] VITALS: BP 130/77; PULSE 86; RESP 19; TEMP 36.6; O2SAT 94
[2025-02-24] MEDS: PREGABALIN 75 MG CAPSULE PO (20:51)
[2025-02-24] MEDS: LORazepam 1 MG TABLET 2 MG PO (20:52)
[2025-02-25] VITALS: BP 140/72; PULSE 77; RESP 19; TEMP 36.7; O2SAT 96
[2025-02-25] MEDS: chlordiazePOXIDE 25 MG CAPSULE 50 MG PO ×5 (00:47→23:57)
[2025-02-25] MEDS: VANCOMYCIN 1,250 MG/250 ML PIGGYBACK 250 MG IV ×2 (02:16→09:56)
--- NOTE | 2025-02-25 03:29 | PC.RNWOUND ---
Patient A&Ox4. CIWA score is 1. Patient removed tele and does not want it placed back on him. Last rhythm was normal sinus. notified.
[2025-02-25 04:00] VITALS: BP 129/68; PULSE 86; RESP 18; TEMP 36.4; O2SAT 94
[2025-02-25 06:25] LABS: Add Manual Diff / Slide Review NO; Basophils Absolute Auto 0 /uL (0-100); Basophils Percent Auto 0.4 % (0-2); Eosinophils Absolute Auto 100 /uL (0-450); Eosinophils Percent Auto 3.1 % (2-4); Hematocrit 27.2 % (41-53); Hemoglobin 9.2 g/dL (13.5-17.5); Lymphocytes Absolute Auto 600 /uL (1100-4500); Lymphocytes Percent Auto 19.8 % (25-40); Mean Corpuscular HGB Conc 33.6 % (30-36); Mean Corpuscular Hemoglobin 27.1 PG (26-34); Mean Corpuscular Volume 80.6 fL (80-100); Monocytes Absolute Auto 300 /uL (0-900); Neutrophils Absolute Auto 2000 /uL (1500-7000); Neutrophils Percent Auto 66.7 % (50-75); Platelet Count 32 X10^3/uL (150-400); Red Blood Cell Count 3.38 X10^6/uL (4.5-5.9); Red Cell Distribution Width 18.2 % (11.6-14.8); White Blood Cell Count 3.1 X10^3/uL (4.5-11.0)
[2025-02-25 06:31] LABS: BUN Creatinine Ratio 13.6 (6-22); Blood Urea Nitrogen 11 mg/dL (9-20); Calcium 9.5 mg/dL (8.4-10.2); Carbon Dioxide 20 mmol/L (22-32); Chloride 108 mmol/L (98-107); Estimated Glomerular Filt Rate > 60 mL/min (>60); Glucose 140 mg/dL (70-100); HEMOLYSIS < 15 (0-50); Potassium 4.1 mmol/L (3.4-5.1); Sodium 137 mmol/L (137-145)
[2025-02-25 07:21] LABS: RBC Morphology Normal Morphology
[2025-02-25 08:00] VITALS: BP 150/75; PULSE 101; RESP 16; TEMP 36.7; O2SAT 97
[2025-02-25] MEDS: LORazepam 1 MG TABLET 2 MG PO (09:22)
[2025-02-25] MEDS: PREGABALIN 75 MG CAPSULE PO ×3 (09:55→20:02)
[2025-02-25] MEDS: MULTIVITAMIN 1 TABLET 1 TAB PO (09:55)
[2025-02-25] MEDS: SPIRONOLACTONE 25 MG TABLET PO (09:55)
[2025-02-25] MEDS: FUROSEMIDE 40 MG TABLET PO (09:55)
[2025-02-25] MEDS: FOLIC ACID 1 MG TABLET PO (09:55)
[2025-02-25] MEDS: THIAMINE 100 MG TABLET PO (09:55)
[2025-02-25] MEDS: ACETAMINOPHEN 325 MG TABLET 650 MG PO (09:55)
[2025-02-25] MEDS: NICOTINE 21 MG PATCH TOP (09:56)
--- NOTE | 2025-02-25 11:02 | PC.NURSE ---
Addendum entered by Angelique Salazar R.N. 02/25/25 15:58: Patients r.foot ucler dressing changed with special dressing that wound care just brought up and he is tolerating this well. Original Note: Patient slightly more anxious this morning, give ativan 2mg po and this helped patient to be more calm. He has his iv vanco infusing now and was given all of his medications. CIWA is 1 and he is talking to someone at this time. Will be changing patients dressing to r.foot ulcer when wound care is available to bring supplies up.
[2025-02-25 11:45] LABS: Vancomycin Trough 17.9 ug/mL (10-20)
[2025-02-25 12:00] VITALS: BP 142/68; PULSE 98; RESP 16; TEMP 36.7; O2SAT 97
--- NOTE | 2025-02-25 13:10 | CM.DPC ---
DCP Cont: Per MD, pt's cultures may have had a contaminant and re-drawing blood and testing to confirm cultures are negative and then could likely d/c home later today vs tomorrow with librium taper. Per Wound Consult, Dr. Rain recommending basic wound care and outpt f/u. Per Ortho Consult, no drainage or surgical intervention needed at this time on pt's knee laceration. WBAT. SW met bedside with pt, his spouse who is still admitted as well for medical tx, and MD. Discussed recommendation of getting appointment scheduled for ETOH assessment/MAT tx for alcohol cessation and pt agreeable and preference right now is closest to home and agreeable with SW calling [facility] to try to set up appointment for both pt and ideally spouse (for ETOH and anxiety/self medicating) and pt could also access their wound care as they work closely with Dr. Rain as well at [facility]. SW inquired with pt and spouse about the state of their home and they confirm their plan has been to hire someone to come in and clean as they know it's become a total dump and shit hole lately and they are embarrassed by how they have let things go. Pt appears to have some motivation for change and sobriety and spouse states her interest in providing support to him but denies any need for ETOH tx for herself but does acknowledge her struggle with anxiety and at times self medicating. Spouse called her mother at home who is managing well and she confirms spouse's purse is at home and was not brought in EMS as spouse thought. SW called Chris and left ms for Tricia, active directory administrator for ETOH assessments and faxed clinicals to review in attempt to set pt up for success of sobriety. Plan: SW to follow for possible d/c home today vs tomorrow pending culture results and outpt f/u with wound care and [facility]. REE Carvalho
--- NOTE | 2025-02-25 14:51 | DIET.CONS ---
Dietary Consultation Note Admission Date: 02/24/2025 12:22 Assessment: 49 y M admitted for frequent falls and alcohol intoxication/withdrawal. Dietitian consulted for wounds. Attempted visit x2, pt sleeping soundly or in shower. EMR reviewed. Pt with chronic protein calorie malnutrition. Inadequate nutrient dense PO intakes based on excessive EtOH intake. Typically doing frozen meals 1x/d per previous assessments. Ht: 177.8 cm Wt: 90.718 kg BMI: 28.7 UBW: 95-102 kg per pt before edema, 99.79 kg on 06/22/24. No edema noted per hospitalist note at this admission. Last BM: 02/24/25 (02/24/25 14:35) MNA: 12 Luis Score: 19 Diet: 02/24/25 13:18 NPO Diet Diet Modifications: NPO Type: NPO NOW for Procedure 02/25/25 Lunch General (Regular) Diet Diet Modifications: Food Texture: Level 7 - Regular Liquid Consistency: Level 0 - Thin Nutrition Percent Meal Consumed 100% 02/25/25 09:32 Percent Meal Consumed pt npo 02/24/25 18:00 Percent Meal Consumed 50% 02/24/25 08:00 Labs: RBC 3.38 X10^6/uL (4.5-5.9) L 02/25/25 05:10 Hgb 9.2 g/dL (13.5-17.5) L 02/25/25 05:10 Hct 27.2 % (41-53) L 02/25/25 05:10 Creatinine 0.81 mg/dL (0.66-1.25) 02/25/25 05:10 Lactate 1.4 mmol/L (0.7-2.1) 02/23/25 20:00 NT-Pro-B Natriuret Pep < 20 pg/mL (<125) 02/23/25 09:37 Nutrition Diagnosis: Moderate chronic Protein Calorie Malnutrition r/t lack of sufficient nutrient dense intake with excessive ETOH intake and increased nutrient needs (protein) for wound healing as evidenced by alcohol use disorder with intake of 6-15 alcoholic drinks per day, <75% of estimated energy and protein needs for >6 months Interventions: -ONS 1x/d to support protein needs and monitor PO intakes for adjustments EER: [id number] kcals (MSJx1.25) 100-120 g protein (1.25-1.5 g/kg per PCM) Monitoring/Evaluations: PO intakes Electronically Signed by: Pretty Robledo 02/25/25 14:51 Clinical Dietitian [address] [address]
[2025-02-25 16:00] VITALS: BP 133/68; PULSE 90; RESP 16; TEMP 36.4; O2SAT 96
[2025-02-25] MEDS: VANCOMYCIN 1,000 MG in SODIUM CHLORIDE 0.9% 250 ML 250 MG IV (18:45)
[2025-02-25 20:00] VITALS: BP 130/66; PULSE 74; RESP 19; TEMP 37; O2SAT 96
--- NOTE | 2025-02-25 20:44 | PM.PN.1 ---
Subjective Subjective Interval history: 49 yo male with history of alcohol dependence with withdrawal and osteomyelitis secondary to ESBL E coli in the setting of right foot neuropathic ulcer, hepatosplenomegaly, portal hypertension, peripheral neuropathy and hypertension who was admitted with alcohol intoxication and falls with multiple abrasions and lacerations. Admit blood cultures were positive for Gram-positive cocci. PCR did not reveal MRSA, but did reveal staph epidermidis (this was misdocumented on yesterday's note). Wound care consulted yesterday with recommendations for ongoing local wound care and offloading of his neuropathic pressure wound. Orthopedic surgery also consulted and advised no surgical intervention for his lacerations and abrasions. Today, patient is hopeful he will be able to go home. Unfortunately, his blood cultures have not finalized. He reports he is feeling reasonably well. He does complain of his laceration to his left knee being painful, but overall he is feeling good. He is interested in doing inpatient rehab for alcohol dependence, but states at this point he is simply just considering it. He would like to continue following with Wound Care as he is concerned about getting recurrent osteomyelitis. Exam Vital Signs (past 8 hours): - 02/25/25 16:00 02/25/25 20:00 Temperature 97.6 F 98.6 F Pulse Rate 90 74 Respiratory Rate 16 19 Blood Pressure 133/68 130/66 Pulse Oximetry 96 96 Oxygen Flow Rate 0 0 Oxygen Delivery Method Room Air Oxygen Flow Rate 0 Narrative Exam Narrative: GEN: Alert and oriented x 3, NAD HEENT:NC, Face symmetric CHEST: Respiratory excursions symmetric, CTAB CV: RRR, no M/R/G ABD: Soft, NT/ND, BT present in all 4 quadrants, no organomegaly or masses EXTR: warm, well perfused, no C/C/E, left knee shows a a healing laceration to the kneecap, mild surrounding erythema, no fluctuance or abscess, is plantar neuropathic ulcer does not have any erythema, warmth, or drainage. SKIN: warm and dry, no rash NEURO: Alert and oriented x 3, nonfocal Objective Labs 02/25/25 05:10 02/25/25 05:10 Labs: Laboratory Results - last 24 hr 02/25/25 02/25/25 02/25/25 05:10 09:30 16:11 WBC 3.1 L RBC 3.38 L Hgb 9.2 L Hct 27.2 L MCV 80.6 MCH 27.1 MCHC 33.6 RDW 18.2 H Plt Count 32 L* Neut % (Auto) 66.7 Lymph % (Auto) 19.8 L [place] % (Auto) 10.0 Eos % (Auto) 3.1 Baso % (Auto) 0.4 Neut # (Auto) 2000 Lymph # (Auto) 600 L [place] # (Auto) 300 Eos # (Auto) 100 Baso # (Auto) 0 Platelet Estimate RBC Morphology Normal morphology Sodium 137 Potassium 4.1 Chloride 108 H Carbon Dioxide 20 L BUN 11 Creatinine 0.81 Estimated GFR > 60 BUN/Creatinine Ratio 13.6 Glucose 140 H Calcium 9.5 Vancomycin Peak 22.0 Vancomycin Trough 17.9 PFSH Medical History Hepatosplenomegaly Portal hypertension Hepatosplenomegaly Foot osteomyelitis, right Neuropathic foot ulcer Decreased libido Erectile dysfunction Alcohol abuse (~2016) Low back pain (Unknown) Polyneuropathy (Unknown) Acne (Unknown) Hypertension (2004) Essential hypertension (09/12/16) Surgical History H/O surgical amputation of finger Hx of cholecystectomy (2001) Family History Grandmother Mental health problem Grandfather Cancer Grandmother Cancer Mother History of back problems Father Amputation leg, bilat Social History household members: spouse and family Smoking Status: Current every day smoker Tobacco: How many years used: 1 Smokeless tobacco user: chewing tobacco (many, many years) alcohol intake: current substance use type: does not use Assessment & Plan Assessment & Plan narrative: 1. Gram-positive bacteremia Appears to be staph epidermidis. Await final blood culture results which hopefully will be back tomorrow. Continue vancomycin for now. Dr. Dao spoke with Infectious Disease yesterday as there was the thought it was a MRSA positive culture. Recommendations were made for consideration of dalbavancin or oritavancin based on that, but for now, we will plan to await final cultures before pursuing any further. 2. Alcohol dependence No evidence of withdrawal. Continues on Librium taper. 3. Multiple abrasions/laceration secondary to fall while intoxicated Stable. Code status Full Prophylaxis Low Hari score Disposition Pending Time-Based Coding :: [TOTAL MINUTES] spent with patient and on the chart (including review of chart, obtaining history, exam, reviewing outside data, placing orders, documenting exam and treatment plan, and counseling patient) on [DATE]. Quality VTE Deep Vein Thrombosis/Pulmonary Embolism Present on Admission: No
[2025-02-25] MEDS: CALCIUM CARBONATE 500 MG TAB 1000 MG PO (21:49)
[2025-02-26] VITALS: BP 140/81; PULSE 67; RESP 19; TEMP 37; O2SAT 99
[2025-02-26] MEDS: VANCOMYCIN 1,000 MG in SODIUM CHLORIDE 0.9% 250 ML 250 MG IV ×2 (02:39→10:15)
[2025-02-26] MEDS: ACETAMINOPHEN 325 MG TABLET 650 MG PO ×2 (02:40→08:16)
[2025-02-26] MEDS: CALCIUM CARBONATE 500 MG TAB 1000 MG PO (02:40)
[2025-02-26] MEDS: LORazepam 1 MG TABLET 2 MG PO ×2 (02:42→08:16)
[2025-02-26 04:00] VITALS: BP 130/72; PULSE 80; RESP 19; TEMP 36.4; O2SAT 94
[2025-02-26] MEDS: chlordiazePOXIDE 25 MG CAPSULE 50 MG PO ×2 (06:15→12:53)
[2025-02-26 08:00] VITALS: BP 139/70; PULSE 83; RESP 16; TEMP 36.3; O2SAT 97
[2025-02-26] MEDS: FOLIC ACID 1 MG TABLET PO (08:16)
[2025-02-26] MEDS: MULTIVITAMIN 1 TABLET 1 TAB PO (08:16)
[2025-02-26] MEDS: SPIRONOLACTONE 25 MG TABLET PO (08:16)
[2025-02-26] MEDS: PREGABALIN 75 MG CAPSULE PO ×2 (08:16→14:55)
[2025-02-26] MEDS: FUROSEMIDE 40 MG TABLET PO (08:16)
[2025-02-26] MEDS: THIAMINE 100 MG TABLET PO (08:17)
[2025-02-26] MEDS: NICOTINE 21 MG PATCH TOP (08:18)
[2025-02-26 10:02] LABS: Add Manual Diff / Slide Review NO; Basophils Absolute Auto 0 /uL (0-100); Basophils Percent Auto 0.4 % (0-2); Eosinophils Absolute Auto 100 /uL (0-450); Eosinophils Percent Auto 2.8 % (2-4); Hematocrit 28.2 % (41-53); Hemoglobin 9.5 g/dL (13.5-17.5); Lymphocytes Absolute Auto 800 /uL (1100-4500); Lymphocytes Percent Auto 19.4 % (25-40); Mean Corpuscular HGB Conc 33.8 % (30-36); Mean Corpuscular Hemoglobin 27.2 PG (26-34); Mean Corpuscular Volume 80.6 fL (80-100); Monocytes Absolute Auto 400 /uL (0-900); Monocytes Percent Auto 9.1 % (3-14); Neutrophils Absolute Auto 2900 /uL (1500-7000); Neutrophils Percent Auto 68.3 % (50-75); Platelet Count 40 X10^3/uL (150-400); Red Blood Cell Count 3.51 X10^6/uL (4.5-5.9); Red Cell Distribution Width 18.6 % (11.6-14.8); White Blood Cell Count 4.2 X10^3/uL (4.5-11.0)
[2025-02-26 10:41] LABS: Alanine Aminotransferase 27 IU/L (<50); Albumin 4.1 g/dL (3.5-5.0); Alkaline Phosphatase 108 U/L (38-126); Aspartate Aminotransferase 53 IU/L (17-59); BUN Creatinine Ratio 15.2 (6-22); Bilirubin Total 2.6 mg/dL (0.2-1.3); Blood Urea Nitrogen 14 mg/dL (9-20); Calcium 10.2 mg/dL (8.4-10.2); Carbon Dioxide 18 mmol/L (22-32); Chloride 107 mmol/L (98-107); Estimated Glomerular Filt Rate > 60 mL/min (>60); Globulin 4.2 g/dL (1.7-4.1); Glucose 151 mg/dL (70-100); HEMOLYSIS < 15 (0-50); Magnesium 1.4 mg/dL (1.6-2.3); Sodium 138 mmol/L (137-145); Total Protein 8.3 g/dL (6.3-8.2)
[2025-02-26 12:00] VITALS: BP 130/70; PULSE 80; RESP 16; TEMP 36.4; O2SAT 97
[2025-02-26] MEDS: MAGNESIUM CHLORIDE 64 MG TABLET 128 MG PO (12:53)
--- NOTE | 2025-02-26 13:49 | CM.DPNOTE ---
DCP note POLICE INSPECTOR reviewed EMR per provider in morning rounds, pt cleared to dc home with OP f/u. new scripts sent to [facility] in [place]. Pt will need transport assistance to get home. POLICE INSPECTOR confirmed pt does have Medicaid transport benefits at this time. POLICE INSPECTOR and DCP RN Zaheer met with pt in room. pt confirmed eager to dc home today. report no one can transport home. would need Medicaid transport to stop at pharmacy. JEANA Schwab answered questions about [facility], encouraged pt to walk in friday morning for initial intake assessment. Pt reports both wanting to quit drinking and not wanting to at the same time. tentatively plans to check out [facility] for ETOH recourses. pt does not want this POLICE INSPECTOR to notify Kimo Jones Associate Professor Of Engineering at this time. Denies other DCP/SW questions at this time. Per Lakshmi at [employer], will p/u pt in room between 2:45pm-3:15pm, will transport pt to [facility] pharmacy. POLICE INSPECTOR updated pt/RN on medicaid transport p/u. POLICE INSPECTOR unable to discover the assigned corporate investigator for APS at this time, POLICE INSPECTOR lvm with new APS salvage supervisor Brigitte Rodriguez [phone] with updates on pt's discharge. P: dc home with OP f/u in PCP setting/[facility]. transport home with [employer] paid for by Medicaid transport. CM team will continue to follow as needed REE Crawford
--- NOTE | 2025-02-27 16:26 | PM.DS.1 ---
History of Present Illness History of Present Illness Chief complaint: Fall, L Knee Pain Narrative: Per H&P: The patient was a 49-year-old male All else reviewed and otherwise unremarkable except as noted in the history and physical. This disorder and a ongoing foot infection. The patient was brought to the ER earlier today for falling. He was intoxicated upon arrival. He has been seen once prior and discharge with oral medications. The patient was not been taking routine medications. The patient does have evidence of chronic, red, and warm legs. The patient was said to have been drinking constantly at home. EMS noted that the home was a mess. There was food out that was apparently spoiled and maggots were also seen per the emergency physician report. The patient was unstable in his feet and intoxicated and we will be admitted for observation. He does have a history of withdrawal syndrome as well. He has been on IV antibiotics until about a week ago for his foot infection and probable osteo. He still has a ulcer on the base of the right foot. This is improved but still present. He was not sure what the plan is moving forward. He was being followed by [facility] Infectious Disease. He notes that he was feeling anxious and jittery and feels that he was now slipping into early withdrawal symptoms. Discharge Providers Provider Date of admission: 02/24/25 12:22 Discharge Date: 02/26/25 Primary care physician: Mario Cutler MD Consults: 02/23/25 Consult to Inpatient Wound Care Nurse Urgent Comment: Reason for consultation: foot wound Has provider been notified: No 02/23/25 17:59 Consult to Dietitian, Adult Urgent Comment: Reason For Exam: foot wound Consult to Wound Care Urgent Comment: Consulting Provider: [facility] 02/23/25 18:08 Consult to Pastoral Services Routine Comment: would like someone to talk to 02/24/25 13:27 Consult to Orthopedic Surgery Routine Comment: Consulting Provider: Aretha Bhatt Reason for consultation: left prepatellar bursitis, MRSA bacteremia Has provider been notified: Yes Discharge provider: Lauren Fairbanks MD Summary Hospital Course Discharge Diagnosis: 1. Staph haemolyticus bacteremia 2/4 bottles (one site), appears to be contaminant 2. Alcohol dependence, mild early w/d sxs vs anxiety 3. Multiple abrasions secondary to fall while intoxicated 4. L kneee laceration secondary to fall on wine bottle 5. Recent ESBL E coli osteomyelitis of R foot d/t neuropathic ulcer 6. Hepatosplenomegaly, portal HTN 7. Peripheral neuropathy 8. HTN Hospital Course: EMS had been called to pt's home daily x 2 weeks. He was c/o increasing weakness. He finally agreed to transport on 02/23. BCxs were taken and he was intoxicated on arrival. Noted to have a 3cm laceration to [facility] [place] that was too old for repair. Admitted to hospitalist service for monitoring. Blood cultures 2/ from one site appeared positive for staph species. Intially thought to be SA d/t the way the PCR prints on the EMR screen. Hospitalist contacted ID for recommendations. Repeat BC drawn 02/24. Pt was placed on librium protocol on admit as well as CIWA scale to monitor for w/d. He became anxious and hopeful for d/c on 02/25. Unfortunately, blood cxs had not finalized. He was amenable to remain in hospital. Cxs finalized on 02/26 showing staph haemolyticus. Discussed w/ID at [facility] and he agreed it was contaminant. Pt was subsequently d/c'd home per his request. No additional librium was provided as pt has not committed to alcohol cessation. He has been referred to [facility] at d/c but was reluctant to commit to going (said I'll try anything once when offered since they do both wound care and outpatient alcohol treatment and can provide transportation all in one place, but also said he prefers to stay at Dr. Schilling[facility] clinic bc it is closer and wants to look into inpatient alcohol treatment). Pt is d/c'd in stable condition. Exam Vital Signs (past 8 hours): Oxygen Delivery Method Room Air Oxygen Flow Rate 0 Narrative Exam Narrative: GEN: Alert and oriented x 3, NAD HEENT:NC, Face symmetric CHEST: Respiratory excursions symmetric, CTAB CV: RRR, no M/R/G ABD: Soft, NT/ND, BT present in all 4 quadrants, no organomegaly or masses EXTR: warm, well perfused, no C/C/E, left knee shows a a healing laceration to the kneecap, mild surrounding erythema, no fluctuance or abscess, is plantar neuropathic ulcer does not have any erythema, warmth, or drainage. SKIN: warm and dry, no rash NEURO: Alert and oriented x 3, nonfocal Objective Labs 02/26/25 09:45 02/26/25 09:45 [facility] Medical History Hepatosplenomegaly Portal hypertension Hepatosplenomegaly Foot osteomyelitis, right Neuropathic foot ulcer Decreased libido Erectile dysfunction Alcohol abuse (~2017) Low back pain (Unknown) Polyneuropathy (Unknown) Acne (Unknown) Hypertension (2004) Essential hypertension (09/12/16) Surgical History H/O surgical amputation of finger Hx of cholecystectomy (2001) Family History Grandmother Mental health problem Grandfather Cancer Grandmother Cancer Mother History of back problems Father Amputation leg, bilat Social History household members: spouse and family Smoking Status: Current every day smoker Tobacco: How many years used: 1 Smokeless tobacco user: chewing tobacco (many, many years) alcohol intake: current substance use type: does not use Discharge Plan Discharge Plan Patient Disposition: Home Provider Discharge Comment: 1) Please f/u w/[facility] to establish ongoing care for wound care and alcohol dependence 2) Monitor your knee wound for redness/drainage/swelling - return to the ER if you notice these findings 3) Return to the ED for fevers/chills/inability to hold down food/fluids, or alcohol withdrawal symptoms (shakes/tremors, hallucinations, sweats, fast heart rate). Discharge orders & Medications Prescriptions: New folic acid 1 mg Tablet 1 mg PO DAILY Qty: 30 0RF thiamine mononitrate (vit B1) 100 mg Tablet 100 mg PO DAILY Qty: 30 0RF multivitamin with folic acid [Tab-A-Carmelo] 400 mcg Tablet 1 tab PO DAILY Qty: 30 0RF Continued pregabalin 75 mg capsule 75 mg PO TID Patient Comments: TAKE ONE CAPSULE BY MOUTH THREE TIMES DAILY furosemide [Lasix] 40 mg tablet 40 mg PO DAILY Qty: 30 0RF spironolactone 25 mg tablet 25 mg PO DAILY Qty: 30 0RF Follow up/Referrals: Mario Cutler MD [Primary Care Provider] - Diet/Activity/Treatments Diet: Diet as Tolerated and Regular Activity: As tolerated Visit Report/Discharge Packet Instructions: Alcohol Use Disorder, Alcohol Withdrawal, DI for Wound Infection Stand Alone Forms: Patient Portal/API, Stroke Signs & Symptoms Discharge Data Primary Care Provider: Mario Cutlre Quality VTE Deep Vein Thrombosis/Pulmonary Embolism Present on Admission: No
== END 2025-02-26 15:05 | disposition home or self-care (01) | DRG 383 ==
LOC: ED 16:26 → AC 16:34
PROVIDERS: Family Medicine; Admitting Provider Hospitalist; Emergency Provider Emergency Medicine; PCP Family Medicine; Referring Provider Emergency Medicine; Visit Provider Hospitalist
DX: L03.116 Cellulitis of left lower limb (principal); F10.229 Alcohol dependence with intoxication, unspecified; E87.29 Other acidosis; M71.562 Other bursitis, not elsewhere classified, left knee; F10.239 Alcohol dependence with withdrawal, unspecified; Y90.8 Blood alcohol level of 240 mg/100 ml or more; L97.422 Non-pressure chronic ulcer of left heel and midfoot with fat layer exposed; E87.20 Acidosis, unspecified; L97.412 Non-pressure chronic ulcer of right heel and midfoot with fat layer exposed; S81.012A Laceration without foreign body, left knee, initial encounter; S00.81XA Abrasion of other part of head, initial encounter; K76.6 Portal hypertension; I10 Essential (primary) hypertension; R16.2 Hepatomegaly with splenomegaly, not elsewhere classified; W19.XXXA Unspecified fall, initial encounter; Z91.81 History of falling; Z72.0 Tobacco use; Z60.2 Problems related to living alone
CPT/HCPCS: 36415; 70450; 71045; 72125; 73701; 80048; 80053; 80202; 80320; 81001; 81003; 83605; 83690; 83735; 83880; 84145; 84484; 85025; 85610; 85651; 85730; 86140; 87040; 87077; 87154; 87186; 93005; 93010; 93306; 96374; 99284; G0378; J2060; Q9967

== ENCOUNTER 2025-03-10 07:38 | Inpatient (IN) | payer OTHER, SELFPAY ==
[2025-02-23 18:05] VITALS: BMI 28.7
[2025-03-10] VITALS (11 sets, daily range): BP systolic 129–155; BP diastolic 66–86; PULSE 95–114; RESP 16–22; TEMP 36.7–37.2; O2SAT 93–99; BMI 31.5
--- NOTE | 2025-03-10 07:48 | DI.CT.S_ITS ---
PROCEDURE: CT CERVICAL SPINE WO CON INDICATIONS: fall, alt MSE, ?etoh TECHNIQUE: Noncontrast 3 mm thick sections acquired from the skull base to the T4 level. Sagittal and coronal reformats were then constructed. For radiation dose reduction, the following was used: automated exposure control, adjustment of mA and/or kV according to patient size. COMPARISON: [facility], CT, CT CERVICAL SPINE WO CON, 02/23/2025, 9:50. FINDINGS: Image quality: Excellent. Bones: No fractures or dislocations. Visualized superior ribs are intact. Cervical spondylosis centered at C5-C6 and C6-C7. There is disc height loss and uncovertebral joint hypertrophy and bilateral foraminal narrowing at these levels. Soft tissues: Prevertebral soft tissues are normal in thickness. No paravertebral hematomas. No apical pneumothoraces. IMPRESSION: No displaced fracture or traumatic subluxation. Cervical spondylosis. Dictated by: Kehinde Hurst M.D. on 03/10/2025 at 8:28 Approved by: Kehinde Hurst M.D. on 03/10/2025 at 8:32
--- NOTE | 2025-03-10 07:48 | DI.CT.S_ITS ---
PROCEDURE: CT HEAD/BRAIN WO CON INDICATIONS: fall, alt MSE, ?etoh TECHNIQUE: Noncontrast 4.5 mm thick angled axial sections acquired from the foramen magnum to the vertex, with coronal and sagittal reformats. For radiation dose reduction, the following was used: automated exposure control, adjustment of mA and/or kV according to patient size. COMPARISON: [facility], CT, CT HEAD/BRAIN WO CON, 02/23/2025, 9:50. FINDINGS: Image quality: Diagnostic. CSF spaces: Basal cisterns are patent. No extra-axial fluid collections. Ventricles are normal in size and shape. Brain: No midline shift. No intracranial masses or hemorrhage. [place]-white matter interface is normal. Skull and face: Calvarium and visualized facial bones are intact, without suspicious lesions. Sinuses: Visualized sinuses and mastoids are clear. IMPRESSION: No acute intracranial pathology. Dictated by: Kehinde Hurst M.D. on 03/10/2025 at 8:26 Approved by: Kehinde Hurst M.D. on 03/10/2025 at 8:28
[2025-03-10 08:00] LABS: Add Manual Diff / Slide Review NO; Basophils Absolute Auto 0 /uL (0-100); Basophils Percent Auto 0.4 % (0-2); Eosinophils Absolute Auto 300 /uL (0-450); Eosinophils Percent Auto 3.8 % (2-4); Hematocrit 33.6 % (41-53); Hemoglobin 11.2 g/dL (13.5-17.5); Lymphocytes Absolute Auto 3200 /uL (1100-4500); Lymphocytes Percent Auto 36.6 % (25-40); Mean Corpuscular HGB Conc 33.4 % (30-36); Mean Corpuscular Volume 80.7 fL (80-100); Monocytes Absolute Auto 1000 /uL (0-900); Monocytes Percent Auto 10.9 % (3-14); Neutrophils Absolute Auto 4300 /uL (1500-7000); Neutrophils Percent Auto 48.3 % (50-75); Platelet Count 95 X10^3/uL (150-400); Red Blood Cell Count 4.16 X10^6/uL (4.5-5.9); Red Cell Distribution Width 18.7 % (11.6-14.8); White Blood Cell Count 8.9 X10^3/uL (4.5-11.0)
[2025-03-10 08:08] LABS: INR 1.3 (0.9-1.3); Prothrombin Time 14.9 SECONDS (9.4-12.5)
[2025-03-10 08:11] LABS: PTT Partial Thromboplastin Tim 70 SECONDS (25.1-36.5)
[2025-03-10 08:12] LABS: Lactate (Lactic Acid) 2.1 mmol/L (0.7-2.1)
[2025-03-10 08:14] LABS: Alanine Aminotransferase 39 IU/L (<50); Albumin 4.9 g/dL (3.5-5.0); Albumin Globulin Ratio 1.1 (1.0-2.8); Alkaline Phosphatase 116 U/L (38-126); Aspartate Aminotransferase 105 IU/L (17-59); BUN Creatinine Ratio 10.2 (6-22); Bilirubin Total 3.1 mg/dL (0.2-1.3); Blood Urea Nitrogen 10 mg/dL (9-20); Calcium 9.3 mg/dL (8.4-10.2); Carbon Dioxide 23 mmol/L (22-32); Chloride 101 mmol/L (98-107); Estimated Glomerular Filt Rate > 60 mL/min (>60); Globulin 4.6 g/dL (1.7-4.1); Glucose 148 mg/dL (70-100); HEMOLYSIS < 15 (0-50); Sodium 141 mmol/L (137-145); Total Protein 9.5 g/dL (6.3-8.2)
[2025-03-10 08:26] LABS: Ethanol (ETOH) 346 mg/dL
--- NOTE | 2025-03-10 08:27 | ED_ITS ---
HPI - General Adult General Chief complaint: Toxicology Problem Stated complaint: AMS Time Seen by Provider: 03/10/25 07:45 History of Present Illness HPI narrative: 49-year-old male with history of alcohol abuse, had ground level fall last night he reports, altered mental status call transport by EMS unclear if any new falls since last night, unclear if he lost consciousness. Arrival by EMS. No seizure activity known. No focal neuro deficits. Had been recently drinking alcohol. Unclear if he takes any lactulose for encephalopathy treatment, not listed at triage. Unclear timing of last alcohol intake, ongoing recent alcohol use. He also reports prior IV antibiotic infusions for left foot wound ulcer, wears left cast walking shoe, last antibiotics for foot infection completed 3 weeks ago. Related Data Home Medications Medication Instructions Recorded Confirmed pregabalin 75 mg capsule 75 mg PO TID 09/26/22 02/24/25 Previous Rx's Medication Instructions Recorded furosemide 40 mg tablet (Lasix) 40 mg PO DAILY #30 tabs 11/18/24 spironolactone 25 mg tablet 25 mg PO DAILY #30 tabs 11/18/24 folic acid 1 mg tablet 1 mg PO DAILY #30 tabs 02/26/25 multivitamin with folic acid 400 1 tab PO DAILY #30 tabs 02/26/25 mcg tablet (Tab-A-Carmelo) thiamine mononitrate (vit B1) 100 100 mg PO DAILY #30 tabs 02/26/25 mg tablet Allergies Allergy/AdvReac Type Severity Reaction Status Date / Time No Known Drug Allergies Allergy Verified 02/23/25 08:33 Patient History Medical History Hepatosplenomegaly Portal hypertension Hepatosplenomegaly Foot osteomyelitis, right Neuropathic foot ulcer Decreased libido Erectile dysfunction Alcohol abuse (~2016) Low back pain (Unknown) Polyneuropathy (Unknown) Acne (Unknown) Hypertension (2004) Essential hypertension (09/12/16) Surgical History H/O surgical amputation of finger Hx of cholecystectomy (2001) Family History Grandmother Mental health problem Grandfather Cancer Grandmother Cancer Mother History of back problems Father Amputation leg, bilat Social History household members: spouse and family Tobacco: How many years used: 1 Smokeless tobacco user: chewing tobacco (many, many years) alcohol intake: current substance use type: does not use tobacco type: cigarettes and smokeless tobacco alcohol intake frequency: 0-2 drinks per day Alcohol type: beer Exam Narrative Exam Narrative: GENERAL: Well-developed patient, in mild distress. Alcohol on breath, slurred speech HEAD: Atraumatic. Normocephalic. EYES: Pupils equal round and reactive. Extraocular motions intact. No scleral icterus. No injection or drainage. ENT: Nose without bleeding, purulent drainage. Throat without erythema, tonsillar hypertrophy or exudate. Airway patent. NECK: Trachea midline. Non tender CARDIOVASCULAR: Regular rate and rhythm without murmurs, gallops, or rubs. RESPIRATORY: Clear to auscultation. Breath sounds equal bilaterally. No wheezes, rales, or rhonchi. GASTROINTESTINAL: Abdomen soft, non-tender, nondistended. EXTREMITIES: No edema or joint tenderness. Left cast shoe worn, on removal has shallow ulcer that does not obviously seemed to be draining in the plantar 5th MCP area, no significant erythema to localized area BACK: Nontender without deformity or crepitance. No flank tenderness. NEURO: AOx3. Motor functions grossly nonfocal SKIN: No rash or erythema of visible areas Initial Vital Signs Initial Vital Signs: Vital Signs Pulse Rate 109 H 03/10/25 07:43 Respiratory Rate 22 03/10/25 07:43 Pulse Oximetry 98 03/10/25 07:43 Course Orders Ordered: ED Orders 03/10/25 07:46 Urinalysis and Microscopic Stat Urine Culture Stat Urine Drug Screen, Rapid Stat 03/10/25 07:48 CT cervical spine wo con Stat CT head/brain wo con Stat 03/10/25 07:49 Complete Blood Count AUTO DIFF Stat Comprehensive Metabolic Panel Stat Ethanol (ETOH) Stat Ethanol (ETOH) Stat Lactate (Lactic Acid) Stat PTT Partial Thromboplastin [place] Stat Prolactin Stat Prothrombin Time INR Stat Thyroid Stimulating Hormone Stat 03/10/25 08:14 Ammonia (NH3) Stat Discontinued Medications Lactated Ringer's (Lactated Ringers) 1,000 mls @ 1,000 mls/hr IV BOLUS ONE Stop: 03/10/25 09:08 Last Infusion: 03/10/25 09:42 Dose: Infused Documented By: Admin: 03/10/25 08:43 Dose: 1,000 mls/hr Documented By: CHLOE Thiamine HCl 100 mg/ Sodium (Chloride) 101 mls @ 404 mls/hr IV NOW ONE Stop: 03/10/25 08:10 Last Infusion: 03/10/25 09:59 Dose: Infused Documented By: Admin: 03/10/25 09:37 Dose: 404 mls/hr Documented By: CHLOE Lactulose (Lactulose 20 Gm/30 Ml Solution) 20 gm PO NOW ONE Stop: 03/10/25 09:01 Last Admin: 03/10/25 09:38 Dose: 20 gm Documented By: CHLOE Vital Signs Vital signs: Vital Signs - 8 hr 03/10/25 07:43 03/10/25 07:45 03/10/25 08:38 Temperature 98.0 F Pulse Rate 109 H 107 H 100 H Respiratory Rate 22 16 22 Blood Pressure 155/86 H Pulse Oximetry 98 97 Oxygen Delivery Method Room Air 03/10/25 08:39 03/10/25 08:39 03/10/25 09:00 Temperature Pulse Rate 98 H 95 H Respiratory Rate 18 16 Blood Pressure 141/78 H Pulse Oximetry 97 Oxygen Delivery Method Medical Decision Making Lab Data Lab results reviewed: Yes I reviewed the patient's lab results. Lab results narrative: White blood cell count 8900, hemoglobin 11.2, platelets 95,000. Glucose 148. BUN and creatinine normal renal function. Electrolytes unremarkable, serum CO2 23 normal. T bili 3.1, AST 105, with normal alkaline phosphatase and ALT. Alcohol level greater than 300. 03/10/25 07:49 03/10/25 07:49 Labs: Lab Results 03/10/25 03/10/25 03/10/25 Range/Units 07:49 07:49 08:14 WBC 8.9 (4.5-11.0) X10^3/uL RBC 4.16 L (4.5-5.9) X10^6/uL Hgb 11.2 L (13.5-17.5) g/dL Hct 33.6 L (41-53) % MCV 80.7 (80-100) fL MCH 27.0 (26-34) PG MCHC 33.4 (30-36) % RDW 18.7 H (11.6-14.8) % Plt Count 95 L (150-400) X10^3/uL Neut % (Auto) 48.3 L (50-75) % Lymph % (Auto) 36.6 (25-40) % [place] % (Auto) 10.9 (3-14) % Eos % (Auto) 3.8 (2-4) % Baso % (Auto) 0.4 (0-2) % Neut # (Auto) 4300 (8340-6954) /uL Lymph # (Auto) 3200 (0459-9216) /uL [place] # (Auto) 1000 H (0-900) /uL Eos # (Auto) 300 (0-450) /uL Baso # (Auto) 0 (0-100) /uL PT 14.9 H (9.4-12.5) SECONDS INR 1.3 (0.9-1.3) APTT 70 H (25.1-36.5) SECONDS Sodium 141 (137-145) mmol/L Potassium 4.0 (3.4-5.1) mmol/L Chloride 101 (98-107) mmol/L Carbon Dioxide 23 (22-32) mmol/L BUN 10 (9-20) mg/dL Creatinine 0.98 (0.66-1.25) mg/dL Estimated GFR > 60 (>60) mL/min BUN/Creatinine Ratio 10.2 (6-22) Glucose 148 H (70-100) mg/dL Lactate 2.1 (0.7-2.1) mmol/L Calcium 9.3 (8.4-10.2) mg/dL Total Bilirubin 3.1 H (0.2-1.3) mg/dL AST 105 H (17-59) IU/L ALT 39 (<50) IU/L Alkaline Phosphatase 116 (38-126) U/L Ammonia 83 H (9-30) umol/L Total Protein 9.5 H (6.3-8.2) g/dL Albumin 4.9 (3.5-5.0) g/dL Globulin 4.6 H (1.7-4.1) g/dL Albumin/Globulin Ratio 1.1 (1.0-2.8) TSH 2.82 (0.47-4.68) uIU/mL Prolactin 22.1 H (3.7-17.9) ng/mL Ethyl Alcohol 346 H 341 H ( - 10) mg/dL Imaging Data CT scan - head: Radiologist's Impression: [place] [address] CT Scan Report Signed Patient: Eric Fontenot MR#: [id number] : 1975 Acct:[id number] Age/Sex: 49 / M Date of Service: 03/10/25 Loc: ED Accession Number: [id number] Procedure: CT head/brain wo con Ordering Provider: Milton Pardo MD PROCEDURE: CT HEAD/BRAIN WO CON INDICATIONS: fall, alt MSE, ?etoh TECHNIQUE: Noncontrast 4.5 mm thick angled axial sections acquired from the foramen magnum to the vertex, with coronal and sagittal reformats. For radiation dose reduction, the following was used: automated exposure control, adjustment of mA and/or kV according to patient size. COMPARISON: [facility], CT, CT HEAD/BRAIN WO CON, 02/23/2025, 9:50. FINDINGS: Image quality: Diagnostic. CSF spaces: Basal cisterns are patent. No extra-axial fluid collections. Ventricles are normal in size and shape. Brain: No midline shift. No intracranial masses or hemorrhage. [place]zon-white matter interface is normal. Skull and face: Calvarium and visualized facial bones are intact, without suspicious lesions. Sinuses: Visualized sinuses and mastoids are clear. IMPRESSION: No acute intracranial pathology. Dictated by: Kehinde Hurst M.D. on 03/10/2025 at 8:26 Approved by: Kehinde Hurst M.D. on 03/10/2025 at 8:28 CT - cervical spine: Radiologist's Impression: [address] [address] [address] Scan Report Signed Patient: Eric Fontenot MR#: [id number] : 1975 Acct:[id number] Age/Sex: 49 / M Date of Service: 03/10/25 Loc: ED Accession Number: [id number] Procedure: CT cervical spine wo con Ordering Provider: Milton Pardo MD PROCEDURE: CT CERVICAL SPINE WO CON INDICATIONS: fall, alt MSE, ?etoh TECHNIQUE: Noncontrast 3 mm thick sections acquired from the skull base to the T4 level. Sagittal and coronal reformats were then constructed. For radiation dose reduction, the following was used: automated exposure control, adjustment of mA and/or kV according to patient size. COMPARISON: [facility], CT, CT CERVICAL SPINE WO CON, 02/23/2025, 9:50. FINDINGS: Image quality: Excellent. Bones: No fractures or dislocations. Visualized superior ribs are intact. Cervical spondylosis centered at C5-C6 and C6-C7. There is disc height loss and uncovertebral joint hypertrophy and bilateral foraminal narrowing at these levels. Soft tissues: Prevertebral soft tissues are normal in thickness. No paravertebral hematomas. No apical pneumothoraces. IMPRESSION: No displaced fracture or traumatic subluxation. Cervical spondylosis. Dictated by: Kehinde Hurst M.D. on 03/10/2025 at 8:28 Approved by: Kehinde Hurst M.D. on 03/10/2025 at 8:32 MDM Narrative Medical decision making narrative: 49-year-old male with history of alcohol use, recent fall last night, struck his head against night table he reports, altered mental status, unclear who called EMS but arrived by EMS this morning. Slurred speech with alcohol on breath. No obvious face or scalp trauma, moving neck. CT head and cervical spine study ordered. Labs pending including ethanol level. Keep NPO. Alcohol level 346. IV fluid bolus, IV thiamine. CT head noncontrast, no acute changes. See radiology report. CT cervical spine noncontrast, no acute changes. See radiology report. Ammonia level 83 quite elevated. Combination of alcohol intoxication with hepatic encephalopathy, significant risk for further falls. Admit, we will contact hospitalist. [id number], case discussed with hospitalist Dr. Gorman who accepts patient for admission Critical Care Time Critical Care Time Total Critical Care Time: 35 Attestation: The high probability of a clinically significant, sudden or life threatening deterioration of the [hepatic, gastrointestinal, metabolic, neuro, cerebrovascular, cardiopulmonary] system(s) required my full and direct attention, intervention and personal management. The aggregate critical care time was [35] minutes. This time is in addition to time spent performing reported procedures but includes the following: [x] Data Review and interpretation [x] Patient assessment and monitoring of vital signs [x] Documentation [x] Medication orders and management Discharge Plan Departure Patient Disposition: Admitted As Inpatient Clinical Impression: Fall from ground level, Alcohol intoxication, Hepatic encephalopathy, Altered mental status Admit Date/Time: 03/10/25 09:08 Admit Provider: Chau Gorman
[2025-03-10 08:30] LABS: Prolactin 22.1 ng/mL (3.7-17.9)
[2025-03-10] MEDS: LACTATED RINGERS 1,000 ML 1000 ML IV (08:43)
--- NOTE | 2025-03-10 08:43 | PC.NURSE ---
Pt ripped off bracelet. Pt refusing to use urinal for sample. Pt refusing to keep pulse oximeter on finger. Pt removing blood pressure cuff. Attempted to redirect pt multiple times. Pt non compliant
[2025-03-10 08:50] LABS: Thyroid Stimulating Hormone 2.82 uIU/mL (0.47-4.68)
[2025-03-10 08:51] LABS: Ammonia (NH3) 83 umol/L (9-30)
--- NOTE | 2025-03-10 08:58 | PC.NURSE ---
Addendum entered by Leigha Love R.N. 03/10/25 09:01: ammonia level resulted elevated. Pt will not be cleared to leave at this time until result improves. attempting deescalation with patient. attempted to facilitate pt into bed without success. Original Note: Pt is aggressive with staff. refusing to lay in bed. refusing to wear monitoring. pulling the call button cord out of the wall, threatening to break equipment. Is unable to be reasoned with. is clearly intoxicated. receiving IV fluids. per Dr Pardo, pt can go home if he has a safe ride to pick him up.
[2025-03-10 09:23] LABS: Ethanol (ETOH) 341 mg/dL
[2025-03-10 09:30] LABS: Reflexed Lactate in 2 Hours Y
[2025-03-10] MEDS: THIAMINE 100 MG in SODIUM CHLORIDE 0.9% 100 ML 404 MG IV (09:37)
[2025-03-10] MEDS: LACTULOSE 20 GM/30 ML SOLUTION PO ×3 (09:38→20:19)
--- NOTE | 2025-03-10 10:02 | PC.NURSE ---
Asked pt for urine specimen; asked if we can straight cath to drain and test urine. Pt refused.
--- NOTE | 2025-03-10 10:08 | PC.NURSE ---
Over 999 ml noted on bladder scan. Pt unable to void on own. Pt refusing catheter indwelling or straight. Pt made aware of risks with urinary retention (i.e.., infection). Pt still refusing catheter.
--- NOTE | 2025-03-10 10:09 | PC.NURSE ---
informed ivy upstairs of bladder scan reading; asked to relay message to herberth romano who was unavailable at the time of call.
[2025-03-10 10:23] LABS: Lactate 2HR (Lactic Acid Rflx) 2.2 mmol/L (0.7-2.1)
[2025-03-10] MEDS: LORazepam 2 MG/ML INJ IV ×3 (11:56→23:36)
[2025-03-10] MEDS: chlordiazePOXIDE 25 MG CAPSULE 50 MG PO ×3 (13:17→23:31)
[2025-03-10] MEDS: ONDANSETRON 4 MG/2 ML INJ IV ×2 (13:18→20:19)
--- NOTE | 2025-03-10 14:57 | PC.NURSE ---
Addendum entered by Renetta Cedeño R.N. 03/10/25 18:12: Bladder scan post-void at 1810 shows <10. Original Note: Pt arrived to unit around 1030. Once in room, he said he needed to void, so staff assisted him to the bathroom. However, pt was unable to void at the time. Discussed the need for a straight cath given the bladder scan in ED showed >999, but pt still refused. Pt woke up briefly around 1300 and was assisted to the bathroom again where he did void, but did not give us a urine sample. Currently sleeping in his bed with bed alarm on, call light within reach.
--- NOTE | 2025-03-10 15:25 | PM.HP.1 ---
History of Present Illness History of Present Illness Date Patient Seen: 03/10/25 Chief complaint: AMS Narrative: Chief complaint: Fall intoxication with alcohol and alcoholic hepatitis with hepatic encephalopathy and alcohol withdrawal History of present illness: 49-year-old male very well known to this institution for recurrent alcohol intoxication and alcohol withdrawal who presents to the emergency department unsteady and intoxicated Findings in the emergency department significant for blood alcohol 354 tremulous and irritable Hemogram is unremarkable PT INR 1.3 and PTT is 70 basic metabolic is unremarkable normal BUN creatinine total bilirubin 3.1 AST 105 ALT 39 ammonia is 83 Patient admitted for acute alcoholic hepatitis alcohol intoxication with withdrawal and hepatic encephalopathy. Patient became increasingly irritable and anxious started on scheduled Librium and CIWA protocol as well as lactulose therapy. Review of systems: Patient unable to participate in a review of systems due to mental status Physical exam: Disheveled remorseful emotional male appearing in poor health HEENT poor dentition unremarkable otherwise Heart rate and rhythm regular no murmurs new line lungs clear to auscultation new line abdomen obese distended but nontender 3+ bipedal edema 5th metatarsal foot ulcer which does not appear to be full-thickness, there was no significant proximal erythema or significant fluctuance Assessment and plan: Alcohol intoxication alcoholic hepatitis hepatic encephalopathy and withdrawal: Admit for management of withdrawal, encephalopathy CIWA symptom driven protocol The sagittal Librium scheduled Oral lactulose 20 mg t.i.d. IV thiamine Risks exceed benefits for pharmacologic prophylaxis of DVT Code status full I spent 55 minutes evaluation consultation with other physicians Health professionals in the management of this patient [facility] Medical History Hepatosplenomegaly Portal hypertension Hepatosplenomegaly Foot osteomyelitis, right Neuropathic foot ulcer Decreased libido Erectile dysfunction Alcohol abuse (~2017) Low back pain (Unknown) Polyneuropathy (Unknown) Acne (Unknown) Hypertension (2004) Essential hypertension (09/12/16) Surgical History H/O surgical amputation of finger Hx of cholecystectomy (2001) Family History Grandmother Mental health problem Grandfather Cancer Grandmother Cancer Mother History of back problems Father Amputation leg, bilat Social History household members: spouse and family Smoking Status: Current every day smoker Tobacco: How many years used: 1 Smokeless tobacco user: chewing tobacco (many, many years) alcohol intake: current substance use type: does not use Meds Home Medications and Allergies Home Medications Medication Instructions Recorded Confirmed Type pregabalin 75 mg capsule 75 mg PO TID 09/26/22 03/10/25 History furosemide 40 mg tablet (Lasix) 40 mg PO DAILY #30 tabs 11/18/24 03/10/25 Rx spironolactone 25 mg tablet 25 mg PO DAILY #30 tabs 11/18/24 03/10/25 Rx folic acid 1 mg tablet 1 mg PO DAILY #30 tabs 02/26/25 03/10/25 Rx multivitamin with folic acid 400 1 tab PO DAILY #30 tabs 02/26/25 03/10/25 Rx mcg tablet (Tab-A-Carmelo) thiamine mononitrate (vit B1) 100 100 mg PO DAILY #30 tabs 02/26/25 03/10/25 Rx mg tablet Allergies Allergy/AdvReac Type Severity Reaction Status Date / Time No Known Drug Allergies Allergy Verified 02/23/25 08:33 Exam Vital Signs (past 8 hours): - 03/10/25 07:43 03/10/25 07:45 03/10/25 08:38 Temperature 98.0 F Pulse Rate 109 H 107 H 100 H Respiratory Rate 22 16 22 Blood Pressure 155/86 H Pulse Oximetry 98 97 Oxygen Delivery Method Room Air Oxygen Flow Rate 03/10/25 08:39 03/10/25 08:39 03/10/25 09:00 Temperature Pulse Rate 98 H 95 H Respiratory Rate 18 16 Blood Pressure 141/78 H Pulse Oximetry 97 Oxygen Delivery Method Oxygen Flow Rate 03/10/25 12:00 03/10/25 13:08 Temperature 98.5 F Pulse Rate 113 H 96 H Respiratory Rate 18 16 Blood Pressure 129/66 Pulse Oximetry 93 Oxygen Delivery Method Oxygen Flow Rate 0 Oxygen Delivery Method Room Air Oxygen Flow Rate 0 Objective Labs 03/10/25 07:49 03/10/25 07:49 Labs: Laboratory Results - last 24 hr 03/10/25 03/10/25 03/10/25 07:49 07:49 08:14 WBC 8.9 RBC 4.16 L Hgb 11.2 L Hct 33.6 L MCV 80.7 MCH 27.0 MCHC 33.4 RDW 18.7 H Plt Count 95 L Neut % (Auto) 48.3 L Lymph % (Auto) 36.6 [place] % (Auto) 10.9 Eos % (Auto) 3.8 Baso % (Auto) 0.4 Neut # (Auto) 4300 Lymph # (Auto) 3200 [place] # (Auto) 1000 H Eos # (Auto) 300 Baso # (Auto) 0 PT 14.9 H INR 1.3 APTT 70 H Sodium 141 Potassium 4.0 Chloride 101 Carbon Dioxide 23 BUN 10 Creatinine 0.98 Estimated GFR > 60 BUN/Creatinine Ratio 10.2 Glucose 148 H Lactate 2.1 Calcium 9.3 Total Bilirubin 3.1 H AST 105 H ALT 39 Alkaline Phosphatase 116 Ammonia 83 H Total Protein 9.5 H Albumin 4.9 Globulin 4.6 H Albumin/Globulin Ratio 1.1 TSH 2.82 Prolactin 22.1 H Ethyl Alcohol 346 H 341 H 03/10/25 10:02 WBC RBC Hgb Hct MCV MCH MCHC RDW Plt Count Neut % (Auto) Lymph % (Auto) [place] % (Auto) Eos % (Auto) Baso % (Auto) Neut # (Auto) Lymph # (Auto) [place] # (Auto) Eos # (Auto) Baso # (Auto) PT INR APTT Sodium Potassium Chloride Carbon Dioxide BUN Creatinine Estimated GFR BUN/Creatinine Ratio Glucose Lactate 2.2 H Calcium Total Bilirubin AST ALT Alkaline Phosphatase Ammonia Total Protein Albumin Globulin Albumin/Globulin Ratio TSH Prolactin Ethyl Alcohol Assessment & Plan Time-Based Coding :: [TOTAL MINUTES] spent with patient and on the chart (including review of chart, obtaining history, exam, reviewing outside data, placing orders, documenting exam and treatment plan, and counseling patient) on [DATE]. Quality VTE Deep Vein Thrombosis/Pulmonary Embolism Present on Admission: No
[2025-03-10 22:08] LABS: Appearance Urine UA CLEAR; Bilirubin Urine UA NEGATIVE (NEGATIVE); Color Urine UA YELLOW; Glucose Urine UA NEGATIVE (Negative); Ketones Urine UA NEGATIVE (NEGATIVE); Leukocyte Esterase Urine UA NEGATIVE (NEGATIVE); Nitrite Urine UA NEGATIVE (Negative); Occult Blood Urine UA NEGATIVE (Negative); Protein Urine UA NEGATIVE (Negative); Specific Gravity Urine UA 1.015 (1.000-1.035); Urobilinogen Urine UA >=8.0 E.U./dL (0.2)
[2025-03-10 22:18] LABS: Bacteria Urine Occasional (0-1); Culture Indicated Urine Cult Not Indicated; RBC Urine None Seen (0-5/HPF); Squamous Epithelial Cell Urine None Seen (0-5/HPF); Urine Volume 10mL (spun); WBC Urine None Seen (0-5/HPF)
[2025-03-10] MEDS: OXYCODONE IR 5 MG TABLET PO (22:55)
[2025-03-10] MEDS: NICOTINE 14 PATCH 14 MG TOP (22:58)
[2025-03-11] VITALS: BP 135/79; PULSE 105; RESP 20; TEMP 37.1; O2SAT 98
[2025-03-11 04:00] VITALS: BP 127/74; PULSE 96; RESP 20; TEMP 36.9; O2SAT 96
[2025-03-11] MEDS: chlordiazePOXIDE 25 MG CAPSULE 50 MG PO ×3 (05:22→17:15)
[2025-03-11 06:44] LABS: Add Manual Diff / Slide Review NO; Basophils Absolute Auto 0 /uL (0-100); Basophils Percent Auto 0.7 % (0-2); Eosinophils Absolute Auto 100 /uL (0-450); Eosinophils Percent Auto 2.9 % (2-4); Hematocrit 27.3 % (41-53); Hemoglobin 9.3 g/dL (13.5-17.5); Lymphocytes Absolute Auto 1100 /uL (1100-4500); Mean Corpuscular Hemoglobin 27.4 PG (26-34); Mean Corpuscular Volume 80.6 fL (80-100); Monocytes Absolute Auto 500 /uL (0-900); Monocytes Percent Auto 13.6 % (3-14); Neutrophils Absolute Auto 2000 /uL (1500-7000); Neutrophils Percent Auto 53.8 % (50-75); Platelet Count 50 X10^3/uL (150-400); Red Blood Cell Count 3.39 X10^6/uL (4.5-5.9); Red Cell Distribution Width 18.4 % (11.6-14.8); White Blood Cell Count 3.7 X10^3/uL (4.5-11.0)
[2025-03-11 07:04] LABS: Alanine Aminotransferase 32 IU/L (<50); Albumin 3.9 g/dL (3.5-5.0); Albumin Globulin Ratio 1.1 (1.0-2.8); Alkaline Phosphatase 108 U/L (38-126); Aspartate Aminotransferase 77 IU/L (17-59); BUN Creatinine Ratio 15.6 (6-22); Bilirubin Total 2.9 mg/dL (0.2-1.3); Blood Urea Nitrogen 14 mg/dL (9-20); Calcium 9.2 mg/dL (8.4-10.2); Carbon Dioxide 27 mmol/L (22-32); Chloride 102 mmol/L (98-107); Estimated Glomerular Filt Rate > 60 mL/min (>60); Globulin 3.5 g/dL (1.7-4.1); Glucose 121 mg/dL (70-100); HEMOLYSIS < 15 (0-50); Potassium 3.7 mmol/L (3.4-5.1); Sodium 135 mmol/L (137-145); Total Protein 7.4 g/dL (6.3-8.2)
--- NOTE | 2025-03-11 07:35 | P.PN_ITS ---
Subjective Subjective Date Patient Seen: 03/11/25 Interval history: Chief complaint: Fall intoxication with alcohol and alcoholic hepatitis with hepatic encephalopathy and alcohol withdrawal History of present illness: 49-year-old male very well known to this institution for recurrent alcohol intoxication and alcohol withdrawal who presents to the emergency department unsteady and intoxicated Findings in the emergency department significant for blood alcohol 354 tremulous and irritable Hemogram is unremarkable PT INR 1.3 and PTT is 70 basic metabolic is unremarkable normal BUN creatinine total bilirubin 3.1 AST 105 ALT 39 ammonia is 83 Patient admitted for acute alcoholic hepatitis alcohol intoxication with withdrawal and hepatic encephalopathy. Patient became increasingly irritable and anxious started on scheduled Librium and CIWA protocol as well as lactulose therapy. 03/11: Patient very calm this morning cogent hemogram is unremarkable total bilirubin 2.9 ammonia down to 62 Review of systems: Patient unable to participate in a review of systems due to mental status Physical exam: Disheveled remorseful emotional male appearing in poor health but calm this morning HEENT poor dentition unremarkable otherwise Heart rate and rhythm regular no murmurs new line lungs clear to auscultation new line abdomen obese distended but nontender 3+ bipedal edema 5th metatarsal foot ulcer which does not appear to be full-thickness, there was no significant proximal erythema or significant fluctuance Assessment and plan: Alcohol intoxication alcoholic hepatitis hepatic encephalopathy and withdrawal: Admit for management of withdrawal, encephalopathy CIWA symptom driven protocol Librium scheduled Oral lactulose 20 mg t.i.d. IV thiamine Risks exceed benefits for pharmacologic prophylaxis of DVT Code status full I spent 35 minutes evaluation consultation with other physicians Health professionals in the management of this patient Exam Vital Signs (past 8 hours): - 03/10/25 23:55 03/11/25 00:00 03/11/25 04:00 Temperature 98.8 F 98.5 F Pulse Rate 104 H 105 H 96 H Respiratory Rate 16 20 20 Blood Pressure 135/79 127/74 Pulse Oximetry 98 96 Oxygen Flow Rate 0 0 Oxygen Delivery Method Room Air Oxygen Flow Rate 0 Objective Labs 03/11/25 06:20 03/11/25 06:20 Labs: Laboratory Results - last 24 hr 03/10/25 03/10/25 03/10/25 07:49 07:49 08:14 WBC 8.9 RBC 4.16 L Hgb 11.2 L Hct 33.6 L MCV 80.7 MCH 27.0 MCHC 33.4 RDW 18.7 H Plt Count 95 L Neut % (Auto) 48.3 L Lymph % (Auto) 36.6 [place] % (Auto) 10.9 Eos % (Auto) 3.8 Baso % (Auto) 0.4 Neut # (Auto) 4300 Lymph # (Auto) 3200 [place] # (Auto) 1000 H Eos # (Auto) 300 Baso # (Auto) 0 PT 14.9 H INR 1.3 APTT 70 H Sodium 141 Potassium 4.0 Chloride 101 Carbon Dioxide 23 BUN 10 Creatinine 0.98 Estimated GFR > 60 BUN/Creatinine Ratio 10.2 Glucose 148 H Lactate 2.1 Calcium 9.3 Total Bilirubin 3.1 H AST 105 H ALT 39 Alkaline Phosphatase 116 Ammonia 83 H Total Protein 9.5 H Albumin 4.9 Globulin 4.6 H Albumin/Globulin Ratio 1.1 TSH 2.82 Prolactin 22.1 H Urine Color Urine Appearance Urine pH Ur Specific [place] Urine Protein Urine Glucose (UA) Urine Ketones Urine Occult Blood Urine Nitrate Urine Bilirubin Urine Urobilinogen Ur Leukocyte Esterase Urine RBC Urine WBC Ur Squamous Epith Cells Urine Bacteria Ur Culture Indicated? Vol Urine Centrifuged Ethyl Alcohol 346 H 341 H 03/10/25 03/10/25 03/11/25 10:02 22:03 06:20 WBC 3.7 L D RBC 3.39 L Hgb 9.3 L Hct 27.3 L MCV 80.6 MCH 27.4 MCHC 34.0 RDW 18.4 H Plt Count 50 L Neut % (Auto) 53.8 Lymph % (Auto) 29.0 [place] % (Auto) 13.6 Eos % (Auto) 2.9 Baso % (Auto) 0.7 Neut # (Auto) 2000 Lymph # (Auto) 1100 [place] # (Auto) 500 Eos # (Auto) 100 Baso # (Auto) 0 PT INR APTT Sodium 135 L Potassium 3.7 Chloride 102 Carbon Dioxide 27 BUN 14 Creatinine 0.90 Estimated GFR > 60 BUN/Creatinine Ratio 15.6 Glucose 121 H Lactate 2.2 H Calcium 9.2 Total Bilirubin 2.9 H AST 77 H ALT 32 Alkaline Phosphatase 108 Ammonia Total Protein 7.4 Albumin 3.9 Globulin 3.5 Albumin/Globulin Ratio 1.1 TSH Prolactin Urine Color Yellow Urine Appearance Clear Urine pH 7.0 Ur Specific [place] 1.015 Urine Protein Negative Urine Glucose (UA) Negative Urine Ketones Negative Urine Occult Blood Negative Urine Nitrate Negative Urine Bilirubin Negative Urine Urobilinogen >=8.0 Ur Leukocyte Esterase Negative Urine RBC None seen Urine WBC None seen Ur Squamous Epith Cells None seen Urine Bacteria Occasional (0-1) Ur Culture Indicated? Cult not indicated Vol Urine Centrifuged 10ml (spun) Ethyl Alcohol PFSH Medical History Hepatosplenomegaly Portal hypertension Hepatosplenomegaly Foot osteomyelitis, right Neuropathic foot ulcer Decreased libido Erectile dysfunction Alcohol abuse (~2017) Low back pain (Unknown) Polyneuropathy (Unknown) Acne (Unknown) Hypertension (2004) Essential hypertension (09/12/16) Surgical History H/O surgical amputation of finger Hx of cholecystectomy (2001) Family History Grandmother Mental health problem Grandfather Cancer Grandmother Cancer Mother History of back problems Father Amputation leg, bilat Social History household members: spouse and family Smoking Status: Current every day smoker Tobacco: How many years used: 1 Smokeless tobacco user: chewing tobacco (many, many years) alcohol intake: current substance use type: does not use Assessment & Plan Time-Based Coding :: [TOTAL MINUTES] spent with patient and on the chart (including review of chart, obtaining history, exam, reviewing outside data, placing orders, documenting exam and treatment plan, and counseling patient) on [DATE]. Quality VTE Deep Vein Thrombosis/Pulmonary Embolism Present on Admission: No
[2025-03-11 08:00] VITALS: BP 133/77; PULSE 104; RESP 18; TEMP 37.3; O2SAT 100
[2025-03-11 08:44] LABS: Ammonia (NH3) 62 umol/L (9-30)
[2025-03-11] MEDS: LACTULOSE 20 GM/30 ML SOLUTION PO ×2 (08:52→20:02)
[2025-03-11] MEDS: OXYCODONE IR 5 MG TABLET PO ×2 (08:52→17:15)
[2025-03-11] MEDS: THIAMINE 200 MG in SODIUM CHLORIDE 0.9% 100 ML 408 MG IV (08:52)
[2025-03-11] MEDS: NICOTINE 14 PATCH 14 MG TOP (08:53)
[2025-03-11] MEDS: FOLIC ACID 1 MG TABLET PO (12:02)
--- NOTE | 2025-03-11 15:05 | CM.DANOTE ---
DCP Assessment Note: Pt is a 49yo male, resident of [place], is admitted for ETOH withdrawal, encephalopathy. Pt lives in a house with his and is primary caregiver for his [id number]. Pt's Primary Care Provider is Dr. Mario Cutler and insurance is [employer]. Reviewed chart and discussed with multidisciplinary team pt's medical status and initial discharge needs. Per hospitalist, pt is calm today but still being followed for ETOH withdrawal. Pt was admitted on 12/20/24-01/05/25 and 02/24/25-02/26/25 for similar presentations. At last discharge, pt was discharged home via [facility] [employer] (Medicaid Transport) and was supposed to establish at [facility] for NAA Outpatient treatment. DCP spoke with [employer] Professional, it is reported pt's living situation is still in squalor (still have flies/maggots on old food in the house as described from previous admission). Home Health agency of pt's [id number] offered to find options for mobile solutions architect to get the home in safer conditions, they were quoted $4000.00 and ultimately not able to perform task. Pt is on [employer] caseload, would benefit from continued coordinated care. DCP attempted to meet with patient in room twice, pt was either in the bathroom or with another provider during attempts. CM team following for NAA/co-occurring referrals in the community. Plan: Anticipating dc home with close NAA follow upCM team will follow closely for coordination of discharge plans. Miriam Cutler EMERGENCY DISPATCHER Discharge Planning/Care Management CM Discharge Assessment Start: 03/11/25 12:02 Freq: Status: Active Protocol: Document 03/11/25 12:02 MW (Rec: 03/11/25 12:07 MW [id number]) Discharge Planning Assessment Assigned Flower Shop Laborer/Designer REE Pineda DPOA/Assigned Designee Name Cheri, Spouse Contact Information [phone] Advance Directives? No Advance Directives on File No History Provided By Patient,Medical Record Has Patient been admitted in last 30 Yes days? Comment 12/20/24-01/05/25, similar dx 02/24/25-02/26/25, similar dx and dc home with Medicaid transport/[employer]. Prior Living Arrangements House Household Members spouse,family Type of transporation used prior to Relies on Others admit Independent with ADL's No Is patient alert and oriented? Yes Needs Assistance With Grooming,Meal Prep,Managing Medications,Home Chores / Shopping Caregiver for Another Yes: Caregiver for mother in law. DME Already Rented / Owned FWW / Walker Barriers to Discharge Yes Comment Chronic group home ETOH abuse Discharge Plan Home Transportation Arrangement might need Medicaid transport/ Taxi Additional Comment [facility] for MAT for ETOH given Review Status In Process Please Provide Date Initial DC 03/11/25 Assessment Was Performed Next Review Type Continued Stay Review
[2025-03-11 16:00] VITALS: BP 138/71; PULSE 99; RESP 18; TEMP 37.1; O2SAT 98
[2025-03-11 19:46] VITALS: BP 140/75; PULSE 100; RESP 19; TEMP 37; O2SAT 99
[2025-03-11] MEDS: LORazepam 1 MG TABLET PO (20:16)
[2025-03-12] VITALS: BP 157/85; PULSE 101; RESP 16; TEMP 36.8; O2SAT 98
[2025-03-12] MEDS: chlordiazePOXIDE 25 MG CAPSULE 50 MG PO ×3 (00:13→12:28)
[2025-03-12 05:17] VITALS: BP 136/78; PULSE 96; RESP 18; TEMP 37.1; O2SAT 98
[2025-03-12 05:54] LABS: Add Manual Diff / Slide Review NO; Basophils Absolute Auto 0 /uL (0-100); Basophils Percent Auto 0.7 % (0-2); Eosinophils Absolute Auto 100 /uL (0-450); Eosinophils Percent Auto 3.9 % (2-4); Hematocrit 27.8 % (41-53); Hemoglobin 9.4 g/dL (13.5-17.5); Lymphocytes Absolute Auto 1100 /uL (1100-4500); Lymphocytes Percent Auto 29.7 % (25-40); Mean Corpuscular Hemoglobin 27.5 PG (26-34); Mean Corpuscular Volume 80.9 fL (80-100); Monocytes Absolute Auto 400 /uL (0-900); Monocytes Percent Auto 11.4 % (3-14); Neutrophils Absolute Auto 2000 /uL (1500-7000); Neutrophils Percent Auto 54.3 % (50-75); Platelet Count 48 X10^3/uL (150-400); Red Blood Cell Count 3.43 X10^6/uL (4.5-5.9); Red Cell Distribution Width 18.3 % (11.6-14.8); White Blood Cell Count 3.6 X10^3/uL (4.5-11.0)
[2025-03-12 05:59] LABS: Alanine Aminotransferase 29 IU/L (<50); Albumin Globulin Ratio 1.1 (1.0-2.8); Alkaline Phosphatase 116 U/L (38-126); Aspartate Aminotransferase 68 IU/L (17-59); Bilirubin Total 2.5 mg/dL (0.2-1.3); Blood Urea Nitrogen 13 mg/dL (9-20); Calcium 9.5 mg/dL (8.4-10.2); Carbon Dioxide 24 mmol/L (22-32); Chloride 102 mmol/L (98-107); Estimated Glomerular Filt Rate > 60 mL/min (>60); Globulin 3.5 g/dL (1.7-4.1); Glucose 115 mg/dL (70-100); HEMOLYSIS < 15 (0-50); Potassium 3.9 mmol/L (3.4-5.1); Sodium 134 mmol/L (137-145); Total Protein 7.5 g/dL (6.3-8.2)
[2025-03-12] MEDS: CALCIUM CARBONATE 500 MG TAB 1000 MG PO (06:59)
--- NOTE | 2025-03-12 07:36 | PM.DS.1 ---
History of Present Illness History of Present Illness Date Patient Seen: 03/12/25 Chief complaint: AMS Narrative: Chief complaint: Fall intoxication with alcohol and alcoholic hepatitis with hepatic encephalopathy and alcohol withdrawal History of present illness: 49-year-old male very well known to this institution for recurrent alcohol intoxication and alcohol withdrawal who presents to the emergency department unsteady and intoxicated Findings in the emergency department significant for blood alcohol 354 tremulous and irritable Hemogram is unremarkable PT INR 1.3 and PTT is 70 basic metabolic is unremarkable normal BUN creatinine total bilirubin 3.1 AST 105 ALT 39 ammonia is 83 Patient admitted for acute alcoholic hepatitis alcohol intoxication with withdrawal and hepatic encephalopathy. Patient became increasingly irritable and anxious started on scheduled Librium and CIWA protocol as well as lactulose therapy. Review of systems: No fevers or chills No nausea vomiting diarrhea No chest pain Physical exam: Disheveled remorseful emotional male appearing in poor health HEENT poor dentition unremarkable otherwise Heart rate and rhythm regular no murmurs new line lungs clear to auscultation new line abdomen obese distended but nontender 3+ bipedal edema 5th metatarsal foot ulcer which does not appear to be full-thickness, there was no significant proximal erythema or significant fluctuance Assessment and plan: Alcohol intoxication alcoholic hepatitis hepatic encephalopathy and withdrawal: Resolution of withdrawal, encephalopathy and intoxication Bilirubin down to 2.5 Oral lactulose 20 mg t.i.d. at home P.o. thiamine Patient has given resources for 12 step recovery acute recovery and prescription for naltrexone Code status full I spent 35 minutes evaluation consultation with other physicians Health professionals in the management of this patient Discharge Providers Provider Date of admission: 03/10/25 09:08 Discharge Date: 03/12/25 Primary care physician: Mario Cutler MD Discharge provider: Chau Gorman MD Exam Vital Signs (past 8 hours): - 03/12/25 00:00 03/12/25 05:17 Temperature 98.2 F 98.8 F Pulse Rate 101 H 96 H Respiratory Rate 16 18 Blood Pressure 157/85 H 136/78 Pulse Oximetry 98 98 Oxygen Flow Rate 0 0 Oxygen Delivery Method Room Air Oxygen Flow Rate 0 Objective Labs 03/12/25 05:10 03/12/25 05:10 Labs: Laboratory Results - last 24 hr 03/11/25 03/12/25 Unknown 05:10 WBC 3.6 L RBC 3.43 L Hgb 9.4 L Hct 27.8 L MCV 80.9 MCH 27.5 MCHC 34.0 RDW 18.3 H Plt Count 48 L Neut % (Auto) 54.3 Lymph % (Auto) 29.7 [place] % (Auto) 11.4 Eos % (Auto) 3.9 Baso % (Auto) 0.7 Neut # (Auto) 2000 Lymph # (Auto) 1100 [place] # (Auto) 400 Eos # (Auto) 100 Baso # (Auto) 0 Sodium 134 L Potassium 3.9 Chloride 102 Carbon Dioxide 24 BUN 13 Creatinine 0.93 Estimated GFR > 60 BUN/Creatinine Ratio 14.0 Glucose 115 H Calcium 9.5 Total Bilirubin 2.5 H AST 68 H ALT 29 Alkaline Phosphatase 116 Ammonia 62 H Total Protein 7.5 Albumin 4.0 Globulin 3.5 Albumin/Globulin Ratio 1.1 PFSH Medical History Hepatosplenomegaly Portal hypertension Hepatosplenomegaly Foot osteomyelitis, right Neuropathic foot ulcer Decreased libido Erectile dysfunction Alcohol abuse (~2016) Low back pain (Unknown) Polyneuropathy (Unknown) Acne (Unknown) Hypertension (2004) Essential hypertension (09/12/16) Surgical History H/O surgical amputation of finger Hx of cholecystectomy (2001) Family History Grandmother Mental health problem Grandfather Cancer Grandmother Cancer Mother History of back problems Father Amputation leg, bilat Social History household members: spouse and family Smoking Status: Current every day smoker Tobacco: How many years used: 1 Smokeless tobacco user: chewing tobacco (many, many years) alcohol intake: current substance use type: does not use Discharge Plan Discharge Plan Patient Disposition: Home Discharge orders & Medications Prescriptions: New lactulose 10 gram/15 mL Solution 20 gm PO TID Qty: 500 0RF naltrexone 50 mg tablet 50 mg PO DAILY Qty: 30 1RF Continued pregabalin 75 mg capsule 75 mg PO TID Patient Comments: TAKE ONE CAPSULE BY MOUTH THREE TIMES DAILY furosemide [Lasix] 40 mg tablet 40 mg PO DAILY Qty: 30 0RF spironolactone 25 mg tablet 25 mg PO DAILY Qty: 30 0RF folic acid 1 mg Tablet 1 mg PO DAILY Qty: 30 0RF Rx Instructions: NOT PICKED UP YET thiamine mononitrate (vit B1) 100 mg Tablet 100 mg PO DAILY Qty: 30 0RF Rx Instructions: NOT PICKED UP YET multivitamin with folic acid [Tab-A-Carmelo] 400 mcg Tablet 1 tab PO DAILY Qty: 30 0RF Rx Instructions: NOT PICKED UP YET Follow up/Referrals: Mario Cutler MD [Primary Care Provider] - Visit Report/Discharge Packet Stand Alone Forms: Patient Portal/API, Stroke Signs & Symptoms Discharge Data Primary Care Provider: Mario Cutler Quality VTE Deep Vein Thrombosis/Pulmonary Embolism Present on Admission: No
[2025-03-12 08:00] VITALS: BP 119/74; PULSE 87; RESP 16; TEMP 37.3; O2SAT 100
[2025-03-12] MEDS: LACTULOSE 20 GM/30 ML SOLUTION PO (08:12)
[2025-03-12] MEDS: OXYCODONE IR 5 MG TABLET PO ×2 (08:13→14:39)
[2025-03-12] MEDS: NICOTINE 14 PATCH 14 MG TOP (08:13)
[2025-03-12] MEDS: FOLIC ACID 1 MG TABLET PO (08:14)
[2025-03-12] MEDS: LORazepam 1 MG TABLET PO (08:25)
[2025-03-12] MEDS: THIAMINE 200 MG in SODIUM CHLORIDE 0.9% 100 ML 408 MG IV (08:53)
--- NOTE | 2025-03-12 11:25 | CM.DPC ---
Addendum entered by REE Carvalho 03/12/25 15:11: ADD: No availability for taxi transport through Medicaid today. Met bedside with pt and he confirms he has no wallet on him and cannot pay for ride home and no one to give him transport. Taxi Voucher completed and called [employer] who quoted $17 and to call around 1530 for specific time of transport. SW updated RN who will call around 1530 and pt appreciative. BF Original Note: DCP Discharge Home Per MD, pt is medically stable to discharge today and had discussion bedside with him and pt now agreeable to try AA mtgs and Naltrexone script to assist with cravings. SW met bedside with pt and pt remembers this SW from many previous admits and states after last discharge he attempted to call [employer] but it was a weekend and no return call (he had been encouraged to go in-person during their new intake times). Pt confirms he is interested in Sobriety and to abstain from alcohol. SW discussed his likely trajectory of increased negative medical impacts ETOH will have on his body and the concern for him and his and MIL if he continues drinking and his increased ED and admission rates. SW provided printed handouts on AA keisha for his phone and the online [facility] AA mtgs as pt feels this would work better for himself and . SW re-printed [facility] info for pt to follow through for outpt but that Inpt ETOH tx likely would be beneficial and pt confirms he feels Inpt tx likely needed but wants to attempt outpt one more time and then maybe pursue Inpt tx through [facility] or if he gets admitted again. Pt states he needs taxi through Medicaid to get home and his scripts are sent to [facility] in [place]. SW called [employer] as it's Friday and they state they are quite busy today but will attempt to find a Medicaid taxi for today. REE Carvalho
[2025-03-12 12:00] VITALS: BP 131/87; PULSE 95; RESP 18; TEMP 37.2; O2SAT 98
[2025-03-12] MEDS: PREGABALIN 75 MG CAPSULE PO (12:47)
--- NOTE | 2025-03-12 15:28 | PC.NURSE ---
Discharge: Pt feels he is ready for d/c to home. Spoke w/MD Frazier and received d/c instructions Reviewed d/c packet and questions answered. He is more steady on his feet this afternoon but made several references to [facility] today. Pt d/c to home via [email or web address] and has a voucher.
== END 2025-03-12 15:30 | disposition home or self-care (01) | DRG 280 ==
LOC: ED 08:15 → AC 09:09
PROVIDERS: Admitting Provider Internal Medicine; Emergency Provider Emergency Medicine; PCP Family Medicine; Referring Provider Emergency Medicine; Visit Provider Internal Medicine
DX: K76.82 Hepatic encephalopathy (principal); K70.10 Alcoholic hepatitis without ascites; F10.239 Alcohol dependence with withdrawal, unspecified; F10.229 Alcohol dependence with intoxication, unspecified; F41.9 Anxiety disorder, unspecified; Y90.8 Blood alcohol level of 240 mg/100 ml or more; I10 Essential (primary) hypertension; F17.200 Nicotine dependence, unspecified, uncomplicated; L97.529 Non-pressure chronic ulcer of other part of left foot with unspecified severity
CPT/HCPCS: 36415; 51798; 70450; 72125; 80053; 80320; 81001; 82140; 83605; 84146; 84443; 85025; 85610; 85730; 96361; 96365; 99284; 99291; J2060; J2405

== ENCOUNTER 2025-04-23 07:40 | Inpatient (IN) | payer OTHER, SELFPAY ==
[2025-03-10 11:25] VITALS: BMI 31.5
[2025-04-23] VITALS (27 sets, daily range): BP systolic 99–185; BP diastolic 58–87; PULSE 79–119; RESP 9–32; TEMP 30–36.9; O2SAT 50–100; BMI 28.7
--- NOTE | 2025-04-23 07:58 | ED_ITS ---
HPI - General Adult General Chief complaint: Toxicology Problem Stated complaint: SI Time Seen by Provider: 04/23/25 07:40 History of Present Illness HPI narrative: 49-year-old male with history of ongoing alcohol abuse brought in by ambulance for suicidal ideation, states plainly that he wants to kill himself. Does not admit to any cuts or self-harm. Unclear if he might have ingested any medications. Generally uncooperative with history. Related Data Home Medications Medication Instructions Recorded Confirmed pregabalin 75 mg capsule 75 mg PO TID 09/26/22 03/10/25 Previous Rx's Medication Instructions Recorded furosemide 40 mg tablet (Lasix) 40 mg PO DAILY #30 tabs 11/18/24 spironolactone 25 mg tablet 25 mg PO DAILY #30 tabs 11/18/24 folic acid 1 mg tablet 1 mg PO DAILY #30 tabs 02/26/25 multivitamin with folic acid 400 1 tab PO DAILY #30 tabs 02/26/25 mcg tablet (Tab-A-Carmelo) thiamine mononitrate (vit B1) 100 100 mg PO DAILY #30 tabs 02/26/25 mg tablet lactulose 10 gram/15 mL oral 20 gm PO TID #500 mL 03/12/25 solution naltrexone 50 mg tablet 50 mg PO DAILY #30 tabs 03/12/25 Allergies Allergy/AdvReac Type Severity Reaction Status Date / Time No Known Drug Allergies Allergy Verified 02/23/25 08:33 Patient History Medical History Hepatosplenomegaly Portal hypertension Hepatosplenomegaly Foot osteomyelitis, right Neuropathic foot ulcer Decreased libido Erectile dysfunction Alcohol abuse (~2016) Low back pain (Unknown) Polyneuropathy (Unknown) Acne (Unknown) Hypertension (2004) Essential hypertension (09/12/16) Surgical History H/O surgical amputation of finger Hx of cholecystectomy (2001) Family History Grandmother Mental health problem Grandfather Cancer Grandmother Cancer Mother History of back problems Father Amputation leg, bilat Social History household members: spouse and family Tobacco: How many years used: 1 Smokeless tobacco user: chewing tobacco (many, many years) alcohol intake: current substance use type: does not use tobacco type: cigarettes and smokeless tobacco alcohol intake frequency: 0-2 drinks per day Alcohol type: beer Exam Narrative Exam Narrative: GENERAL: Well-developed patient, in mild distress. Agitation, generally redirectable. HEAD: Atraumatic. Normocephalic. EYES: Pupils equal round and reactive. Extraocular motions intact. No scleral icterus. No injection or drainage. ENT: Nose without bleeding, purulent drainage. NECK: Trachea midline. Non tender CARDIOVASCULAR: Regular rate and rhythm without murmurs, gallops, or rubs. RESPIRATORY: Clear to auscultation. Breath sounds equal bilaterally. No wheezes, rales, or rhonchi. GASTROINTESTINAL: Abdomen soft, non-tender, nondistended. EXTREMITIES: No edema or joint tenderness. BACK: Nontender without deformity or crepitance. No flank tenderness. NEURO: Alcohol on breath, slurred speech, moving all extremities, no obvious facial droop, conjugate gaze, otherwise uncooperative with exam. SKIN: No rash or erythema of visible areas Initial Vital Signs Initial Vital Signs: Vital Signs Pulse Rate 115 H 04/23/25 07:43 Blood Pressure 147/82 H 04/23/25 07:43 Pulse Oximetry 98 04/23/25 07:43 Course Orders Ordered: ED Orders 04/23/25 14:00 Ethanol (ETOH) Stat 04/23/25 14:18 Acetaminophen Stat Salicylate Stat 04/23/25 17:32 Urine Drug Screen, Rapid Stat Diazepam (Diazepam 10 Mg/2 Ml Syringe) 0 mg IV CIWAPRN PRN; Protocol PRN Reason: Alcohol Withdrawal Last Admin: 04/23/25 16:45 Dose: 10 mg Documented By: CHRISTIANO Folic Acid (Folic Acid 1 Mg Tablet) 1 mg PO DAILY WEI Hydromorphone HCl (Hydromorphone 0.5 Mg Inj) 0.5 mg IV Q2H PRN PRN Reason: Pain, Severe (7-10) Sodium Chloride (Normal Saline 0.9%) 1,000 mls @ 100 mls/hr IV CONT WEI Last Admin: 04/23/25 17:00 Dose: 100 mls/hr Documented By: CHRISTIANO Thiamine HCl 100 mg/ Sodium (Chloride) 101 mls @ 404 mls/hr IV DAILY WEI dexmedeTOMIDine in 0.9 % NaCL (Precedex) 400 mcg in 100 mls @ 4.536 mls/hr IV TITRATE WEI; Protocol Last Titration: 04/23/25 18:49 Dose: 0.4 mcg/kg/hr, 9.072 mls/hr Documented By: Admin: 04/23/25 17:52 Dose: 0.2 mcg/kg/hr, 4.536 mls/hr Documented By: CHRISTIANO Lorazepam (Lorazepam 1 Mg Tablet) 0 mg PO CIWAPRN PRN; Protocol PRN Reason: Alcohol Withdrawal Multivitamins (Multivitamin 1 Tablet) 1 tab PO DAILY WEI Naloxone HCl (Naloxone 0.4 Mg/Ml Vial) 0.2 mg IV Q2MIN PRN PRN Reason: Opiate Reversal Naloxone HCl (Naloxone 0.4 Mg/Ml Vial) 0.2 mg IV Q2MIN PRN PRN Reason: Opiate Reversal Pantoprazole Sodium (Pantoprazole Dr 40 Mg Tablet) 40 mg PO 0700 WEI Phenobarbital (Phenobarbital 65 Mg/Ml Vial) 65 mg IV Q8H WEI Stop: 04/26/25 16:29 Last Admin: 04/23/25 16:45 Dose: 65 mg Documented By: CHRISTIANO Discontinued Medications Diazepam (Diazepam 10 Mg/2 Ml Syringe) 5 mg IV NOW ONE Stop: 04/23/25 08:03 Last Admin: 04/23/25 08:12 Dose: 5 mg Documented By: JUDAH Diazepam (Diazepam 10 Mg/2 Ml Syringe) 5 mg IV NOW ONE Stop: 04/23/25 14:28 Last Admin: 04/23/25 14:34 Dose: 5 mg Documented By: Diphenhydramine HCl (Diphenhydramine 50 Mg/Ml Vial) 50 mg IV NOW ONE Stop: 04/23/25 08:03 Last Admin: 04/23/25 08:08 Dose: 50 mg Documented By: JUDAH Haloperidol (Haloperidol 5 Mg/Ml Vial) 5 mg IM NOW ONE Stop: 04/23/25 08:03 Last Admin: 04/23/25 08:08 Dose: 5 mg Documented By: JUDAH Sodium Chloride (Normal Saline 0.9%) 1,000 mls @ 1,000 mls/hr IV BOLUS ONE Stop: 04/23/25 09:55 Last Infusion: 04/23/25 11:42 Dose: Infused Documented By: Admin: 04/23/25 10:00 Dose: 1,000 mls/hr Documented By: Thiamine HCl 100 mg/ Sodium (Chloride) 101 mls @ 404 mls/hr IV NOW ONE Stop: 04/23/25 08:57 Last Infusion: 04/23/25 10:30 Dose: Infused Documented By: Admin: 04/23/25 09:44 Dose: 404 mls/hr Documented By: Magnesium Sulfate (Magnesium Sulfate) 2 gm in 50 mls @ 150 mls/hr IV NOW ONE Stop: 04/23/25 09:46 Last Infusion: 04/23/25 10:55 Dose: Infused Documented By: Co-signed By: JUDAH Admin: 04/23/25 09:49 Dose: 150 mls/hr Documented By: Co-signed By: BETTYE Lactulose (Lactulose 20 Gm/30 Ml Solution) 20 gm PO NOW ONE Stop: 04/23/25 09:22 Last Admin: 04/23/25 10:54 Dose: Not Given Documented By: Lorazepam (Lorazepam 2 Mg/Ml Inj) 0 mg IV CIWAPRN PRN; Protocol PRN Reason: Alcohol Withdrawal Vital Signs Vital signs: Vital Signs - 8 hr 04/23/25 12:00 04/23/25 12:00 04/23/25 12:30 Pulse Rate 91 H 89 Respiratory Rate 11 L 9 L Blood Pressure 143/74 H Pulse Oximetry 99 99 Oxygen Delivery Method CPAP 04/23/25 12:30 04/23/25 13:00 04/23/25 13:00 Pulse Rate 87 Respiratory Rate 9 L Blood Pressure 144/72 H 144/72 H Pulse Oximetry 99 Oxygen Delivery Method 04/23/25 13:30 04/23/25 13:30 04/23/25 14:00 Pulse Rate 81 91 H Respiratory Rate 9 L 10 L Blood Pressure 154/74 H Pulse Oximetry 100 100 Oxygen Delivery Method 04/23/25 14:00 04/23/25 14:30 04/23/25 14:30 Pulse Rate 119 H Respiratory Rate 14 Blood Pressure 151/82 H 163/76 H Pulse Oximetry 92 Oxygen Delivery Method 04/23/25 15:00 04/23/25 15:00 Pulse Rate 107 H Respiratory Rate 18 Blood Pressure 152/65 H Pulse Oximetry 90 L Oxygen Delivery Method Medical Decision Making Lab Data Lab results reviewed: Yes I reviewed the patient's lab results. Lab results narrative: White blood cell count 7800, hemoglobin 10.7, platelets 73,000 decreased. Glucose 168. BUN 4 with creatinine 0.8 normal renal function. Serum CO2 21 mildly decreased. Potassium 3.6 normal, sodium 146 slight elevation. Total bilirubin 3.2 elevated, AST 103 mild elevation, slight alkaline phosphatase elevation, normal ALT. Acetaminophen level negative. Salicylate level negative. Blood alcohol level 504 at 0745 draw. 04/23/25 07:45 04/23/25 07:45 Labs: Lab Results 04/23/25 04/23/25 04/23/25 Range/Units 07:45 08:37 14:00 WBC 7.8 (4.5-11.0) X10^3/uL RBC 4.04 L (4.5-5.9) X10^6/uL Hgb 10.7 L (13.5-17.5) g/dL Hct 32.4 L (41-53) % MCV 80.0 (80-100) fL MCH 26.5 (26-34) PG MCHC 33.1 (30-36) % RDW 18.0 H (11.6-14.8) % Plt Count 73 L (150-400) X10^3/uL Neut % (Auto) 53.5 (50-75) % Lymph % (Auto) 28.7 (25-40) % Ross % (Auto) 10.1 (3-14) % Eos % (Auto) 7.1 H (2-4) % Baso % (Auto) 0.6 (0-2) % Neut # (Auto) 4200 (1261-3338) /uL Lymph # (Auto) 2200 (4053-8189) /uL Ross # (Auto) 800 (0-900) /uL Eos # (Auto) 500 H (0-450) /uL Baso # (Auto) 0 (0-100) /uL Sodium 146 H (137-145) mmol/L Potassium 3.6 (3.4-5.1) mmol/L Chloride 107 (98-107) mmol/L Carbon Dioxide 21 L (22-32) mmol/L BUN 4 L (9-20) mg/dL Creatinine 0.80 (0.66-1.25) mg/dL Estimated GFR > 60 (>60) mL/min BUN/Creatinine Ratio 5.0 L (6-22) Glucose 168 H (70-99) mg/dL Calcium 8.7 (8.4-10.2) mg/dL Magnesium 1.5 L (1.6-2.3) mg/dL Total Bilirubin 3.2 H (0.2-1.3) mg/dL AST 103 H (17-59) IU/L ALT 35 (<50) IU/L Alkaline Phosphatase 153 H (38-126) U/L Ammonia 66 H (9-30) umol/L Total Protein 8.4 H (6.3-8.2) g/dL Albumin 4.3 (3.5-5.0) g/dL Globulin 4.1 (1.7-4.1) g/dL Albumin/Globulin Ratio 1.0 (1.0-2.8) TSH 2.12 (0.47-4.68) uIU/mL Salicylates < 1.0 (<20) mg/dL Acetaminophen < 10 (10-30) ug/mL Ethyl Alcohol 504 H* 386 H (<10) mg/dL 04/23/25 04/23/25 Range/Units 14:18 14:26 WBC (4.5-11.0) X10^3/uL RBC (4.5-5.9) X10^6/uL Hgb (13.5-17.5) g/dL Hct (41-53) % MCV (80-100) fL MCH (26-34) PG MCHC (30-36) % RDW (11.6-14.8) % Plt Count (150-400) X10^3/uL Neut % (Auto) (50-75) % Lymph % (Auto) (25-40) % Ross % (Auto) (3-14) % Eos % (Auto) (2-4) % Baso % (Auto) (0-2) % Neut # (Auto) (2223-1185) /uL Lymph # (Auto) (8106-6575) /uL Ross # (Auto) (0-900) /uL Eos # (Auto) (0-450) /uL Baso # (Auto) (0-100) /uL Sodium (137-145) mmol/L Potassium (3.4-5.1) mmol/L Chloride (98-107) mmol/L Carbon Dioxide (22-32) mmol/L BUN (9-20) mg/dL Creatinine (0.66-1.25) mg/dL Estimated GFR (>60) mL/min BUN/Creatinine Ratio (6-22) Glucose (70-99) mg/dL Calcium (8.4-10.2) mg/dL Magnesium (1.6-2.3) mg/dL Total Bilirubin (0.2-1.3) mg/dL AST (17-59) IU/L ALT (<50) IU/L Alkaline Phosphatase (38-126) U/L Ammonia (9-30) umol/L Total Protein (6.3-8.2) g/dL Albumin (3.5-5.0) g/dL Globulin (1.7-4.1) g/dL Albumin/Globulin Ratio (1.0-2.8) TSH (0.47-4.68) uIU/mL Salicylates < 1.0 (<20) mg/dL Acetaminophen < 10 (10-30) ug/mL Ethyl Alcohol Cancelled (<10) mg/dL ECG Data Attestation: I personally reviewed and interpreted this ECG as follows: Interpretation: Sinus tachycardia with rate of 108, no obvious ST segment elevation or depression changes. [place] 184, QRS 100, QTC 458. MDM Narrative Medical decision making narrative: 49-year-old male with ongoing alcohol abuse, has suicidal ideation. Generally uncooperative, frequently trying to get out of bed, agitated, not overtly threatening toward staff but persisting agitation. IV diazepam, IM Haldol, IV Benadryl, for treaatment of persisting agitation. Subsequently patient seems to be sleeping, has sleep apnea, supplemental oxygen given. Labs pending. human services care specialist consult regarding suicidal ideation, when patient sober inappropriate for evaluation. Acetaminophen and Tylenol level negative. Blood alcohol level 504 elevated. Slight elevated sodium, potassium adequate at this time, renal function adequate. T bili elevated but similarly elevated in slightly higher even in the past. Ammonia levels elevated in the past. Ammonia level pending. Magnesium 1.5 low, IV magnesium ordered. IV fluid bolus normal saline also ordered, with 100 mg IV thiamine. Ammonia level 66, oral lactulose ordered, could consider NG/WY route. Consider admission, will query hospitalist. 0845, case discussed with hospitalist Dr. Fairbanks who is familiar with patient and family, in her experience patient has sobered up and refused all detox care, has denies suicidal ideation when sober in the past. She advises a trial of further observation in the ER for now, giving oral lactulose when he is more sober/cooperative, agrees with repeat labs later this afternoon, if mental status not clearing reconsider admission at that time. 1200, patient sleeping, heart rate 100s, blood pressure adequate. No obvious tremulousness. 1414, patient woke up, sitting up, argumentative, redirectable, sinus tachycardia 120s, tremulous, will initiate CIWA protocol. 1510, patient received diazepam IV 5 mg, is now sleeping again, on oxygen. Patient in ED now 7.5 hours, not stable for discharge. Query hospitalist regarding admission. 1530, case discussed with hospitalist Dr. Fairbanks who accepts patient for admission to inpatient ICU Critical Care Time Critical Care Time Critical Care Time: Yes Total Critical Care Time: 35 Attestation: The high probability of a clinically significant, sudden or life threatening deterioration of the [metabolic, neurologic, cardiopulmonary, psychiatric] system(s) required my full and direct attention, intervention and personal management. The aggregate critical care time was [35] minutes. This time is in addition to time spent performing reported procedures but includes the following: [x] Data Review and interpretation [x] Patient assessment and monitoring of vital signs [x] Documentation [x] Medication orders and management Discharge Plan Departure Patient Disposition: Admitted As Inpatient Clinical Impression: Alcohol intoxication, Hepatic encephalopathy, Hypomagnesemia, Alcoholic encephalopathy, Suicidal ideation, Agitation Admit Date/Time: 04/23/25 15:26 Admit Provider: Lauren Fairbanks
[2025-04-23 08:01] LABS: Add Manual Diff / Slide Review NO; Basophils Absolute Auto 0 /uL (0-100); Basophils Percent Auto 0.6 % (0-2); Eosinophils Absolute Auto 500 /uL (0-450); Eosinophils Percent Auto 7.1 % (2-4); Hematocrit 32.4 % (41-53); Hemoglobin 10.7 g/dL (13.5-17.5); Lymphocytes Absolute Auto 2200 /uL (1100-4500); Lymphocytes Percent Auto 28.7 % (25-40); Mean Corpuscular HGB Conc 33.1 % (30-36); Mean Corpuscular Hemoglobin 26.5 PG (26-34); Monocytes Absolute Auto 800 /uL (0-900); Monocytes Percent Auto 10.1 % (3-14); Neutrophils Absolute Auto 4200 /uL (1500-7000); Neutrophils Percent Auto 53.5 % (50-75); Platelet Count 73 X10^3/uL (150-400); Red Blood Cell Count 4.04 X10^6/uL (4.5-5.9); White Blood Cell Count 7.8 X10^3/uL (4.5-11.0)
[2025-04-23] MEDS: HALOPERIDOL 5 MG/ML VIAL IM (08:08)
[2025-04-23] MEDS: diphenhydrAMINE 50 MG/ML VIAL IV (08:08)
[2025-04-23] MEDS: diazePAM 10 MG/2 ML SYRINGE 5 MG IV ×2 (08:12→14:34)
--- NOTE | 2025-04-23 08:13 | PC.NURSE ---
Pt increasingly agitated. Dr Pardo aware and at bedside. Pt heavily intoxicated. Trying to get out of bed. assisted back in bed by LOG STACKER OPERATOR and RN. Meds given per MAR. Attached to cardiac monitoring. In full line of sight from RN station.
[2025-04-23 08:22] LABS: Acetaminophen < 10 ug/mL (10-30); Alanine Aminotransferase 35 IU/L (<50); Albumin 4.3 g/dL (3.5-5.0); Alkaline Phosphatase 153 U/L (38-126); Aspartate Aminotransferase 103 IU/L (17-59); Bilirubin Total 3.2 mg/dL (0.2-1.3); Blood Urea Nitrogen 4 mg/dL (9-20); Calcium 8.7 mg/dL (8.4-10.2); Carbon Dioxide 21 mmol/L (22-32); Chloride 107 mmol/L (98-107); Estimated Glomerular Filt Rate > 60 mL/min (>60); Globulin 4.1 g/dL (1.7-4.1); Glucose 168 mg/dL (70-99); HEMOLYSIS < 15 (0-50); Potassium 3.6 mmol/L (3.4-5.1); Salicylate < 1.0 mg/dL (<20); Sodium 146 mmol/L (137-145); Total Protein 8.4 g/dL (6.3-8.2)
[2025-04-23 08:37] LABS: Magnesium 1.5 mg/dL (1.6-2.3)
[2025-04-23 08:38] LABS: Ethanol (ETOH) 504 mg/dL (<10)
--- NOTE | 2025-04-23 08:43 | PC.NURSE ---
Pt has LUKE, desatting on O2 via NC. RT called and placed on bedside CPAP and appears more comfortable.
--- NOTE | 2025-04-23 08:52 | EKG_ITS ---
[facility] [address] [place] [address] Test Date: 2025-04-23 Pat Name: Eric Fontenot Department: [facility] Room: Gender: Male Director Of Securities And Real Estate: JENNIFER : 1975 Requested By: Order Number: [id number] Reading MD: Otto George Measurements Intervals [place] Rate: 108 P: 55 ID: [id number] QRS: 26 QRSD: 100 T: 21 QT: 342 QTc: 458 Interpretive Statements Sinus tachycardia Electronically Signed On 04-25-2025 7:50:30 PDT by Otto George
[2025-04-23 08:56] LABS: Ammonia (NH3) 66 umol/L (9-30)
[2025-04-23 08:56] LABS: TSH w/ Reflex to FT4 2.12 uIU/mL (0.47-4.68)
--- NOTE | 2025-04-23 09:05 | PC.NURSE ---
pt pulled off CPAP. Sats 97 on RA.
--- NOTE | 2025-04-23 09:28 | PC.NURSE ---
[facility] As[facility] for [facility]inal. Condom cath placed.
[2025-04-23] MEDS: THIAMINE 100 MG in SODIUM CHLORIDE 0.9% 100 ML 404 MG IV (09:44)
[2025-04-23] MEDS: MAGNESIUM SULFATE 2 GM/50 ML PIGGYBACK IV (09:49)
[2025-04-23] MEDS: SODIUM CHLORIDE 0.9% 1,000 ML 1000 ML IV (10:00)
--- NOTE | 2025-04-23 11:59 | PC.NURSE ---
Pt laying back in gurney. Appears in NAD. CPAP in place and pt is leaving mask alone.
--- NOTE | 2025-04-23 14:27 | PC.NURSE ---
pt awake and sitting at end of bed. CIWA 10 Dr Pardo notified. Verbal order received for vallium.
[2025-04-23 14:40] LABS: Acetaminophen < 10 ug/mL (10-30); Salicylate < 1.0 mg/dL (<20)
[2025-04-23 14:47] LABS: Ethanol (ETOH) 386 mg/dL (<10)
--- NOTE | 2025-04-23 15:35 | CM.IDA ---
Initial DCP Assessment Note Patient is 49 y/o male who presents to ED via EMS this morning due to concern for ETOH intoxication and SI. Patient called 911 due to concern for SI, patient's Mother in law presented via EMS as well as she presented under the influence of ETOH as well and unable to care for self. Patient's spouse is currently a patient in acute care for the last five days. IN PROCESSING INSTRUCTOR unable to evaluate patient due to ongoing somnolence, on BIPAP and patient under the influence of ETOH, patient presents with BAL of 504 upon arrival, BAL is 386 at 1400. Per triage, there is concern that patient may have taken pills. IN PROCESSING INSTRUCTOR speaks with [employer] and it is reported that patient made statements of wanting to kill self via gun and discussed suicide by endoscope technician with [employer]. It is reported in triage that patient's guns were voluntarily removed from home. [employer] shows photos of patient's living conditions to this IN PROCESSING INSTRUCTOR and reports concern for the safety of those who reside there. It is observed that there is no running water, hundreds of beer cans everywhere, trash and debris throughout the home. Patient reports in triage that they have run out of food. [employer] reports plan to make APS report, previous APS report made due to concern for patient's spouse earlier this week as well. It is also reported that there are two cats that live there and animal control may need to be contacted. Patient's PCP is Dr. Mario Cutler, patient has [facility] Health options insurance. Patient has hx of several recent hospitalizations due to concern for ETOH withdrawal, encephalopathy and osteomyelitis on his foot. There is concern for patient's medication compliance and patient's outpatient follow up. IN PROCESSING INSTRUCTOR unable to assess patient due to concern for patient's current presentation. Patient resides at home with spouse and Mother in law in [place], both parties are present at . Patient's MIL arrived by EMS shortly after patient today and patient's spouse has been admitted for the last 5 days. There is concern that patient's ETOH consumption has increased due to stress of patient's spouse being at the hospital. Patient has had difficulty managing ADLs or assisting with managing his MIL's ADLs. IN PROCESSING INSTRUCTOR contacts [facility] community laundry or dry cleaners counter clerk (Jorge jones in for Kimo) regarding patient and family as all residents are at at this time. IN PROCESSING INSTRUCTOR to make another APS referral on behalf of patient's mother in law as there is no safe plan of discharge for her at this time with no one to care for her at home, and ongoing concerns for living situation. Patient has been admitted by Hospitalist due to concern for alcohol intoxication, hepatic encephalopathy, hypomagnesemia, alcoholic encephalopathy, SI, and agitation. In the patient patient has been presented with several outpatient NAA resources. It is the opinion of this IN PROCESSING INSTRUCTOR that patient may benefit from Kamari Morin DCR evaluation upon medical clearance due to concern for patient's ongoing presentations regarding patient's prevelent ETOH use impacting patient's ability to manage caring for himself and others at home. Patient also presents with significant life stressors at home contributing to SI. Plan: patient admitted to acute care as inpatient for further treatment and evaluation, DCP to f/u with POC. Patient will need NAA/MH evaluation upon patient's ability to converse with IN PROCESSING INSTRUCTOR. Patient would benefit from Kamari Morin DCR evaluation upon medical clearance. ANGELICA Payne Discharge Planning/Care Management CM Discharge Assessment Start: 04/23/25 15:28 Freq: Status: Active Protocol: Document 04/23/25 15:29 LN (Rec: 04/23/25 15:34 LN [id number]) Discharge Planning Assessment Assigned Security Shift Manager ANGELICA Vicente DPOA/Assigned Designee Name Cheri/ Spouse (Currently admitted patient as well) Contact Information [phone] Advance Directives? No Advance Directives on File No History Provided By Medical Record Has Patient been admitted in last 30 No days? Comment Last admission was 03/10/25-11/24, previous admits the last several months. Prior Living Arrangements House Household Members spouse,family Comment Patient lives with spouse and mother in law, they are both at [facility] as well. Type of transporation used prior to Relies on Others admit Independent with ADL's No Is patient alert and oriented? No: Patient under the influence of ETOH on CPAP Needs Assistance With Grooming,Meal Prep,Managing Medications,Home Chores / Shopping Caregiver for Another Yes: Patient has been caring for Mother in Law DME Already Rented / Owned FWW / Walker Comment Chronic snf ETOH abuse, concern for living conditions, no running water at home. Several current APS reports and current investigation. Transportation Arrangement might need Medicaid transport/ Taxi Additional Comment Discuss NAA and MH inpatient services, may benefit from [employer] DCR evaluation upon medical clearance
[2025-04-23] MEDS: PHENobarbital 65 MG/ML VIAL IV (16:45)
[2025-04-23] MEDS: diazePAM 10 MG/2 ML SYRINGE IV ×2 (16:45→23:13)
[2025-04-23] MEDS: SODIUM CHLORIDE 0.9% 1,000 ML 100 ML IV (17:00)
--- NOTE | 2025-04-23 17:14 | P.HP_ITS ---
History of Present Illness History of Present Illness Chief complaint: SI Narrative: 49 yo male with history of alcohol dependence with withdrawal and osteomyelitis secondary to ESBL E coli in the setting of right foot neuropathic ulcer, hepatosplenomegaly, portal hypertension, peripheral neuropathy and hypertension who presented to the emergency department with severe alcohol intoxication and suicidal ideation this morning. At the time of arrival at 7:45 a.m. this morning, his alcohol level was 0.504. He was quite agitated and voicing suicidal ideation. He showed up with his [id number] who was also intoxicated. She had reported drinking with him to keep him company. He had significant agitation requiring treatment with IV Benadryl, Haldol, and diazepam. He also received IV fluids and thiamine. The plan was to monitor him for 4-5 hours to see if as his alcohol level decreased whether his suicidal ideation improved. Unfortunately, he became agitated again in the emergency department later in the day and required additional IV diazepam. His ammonia level was elevated at 66. Lactulose was ordered but could not be given due to his agitation. Due to his ongoing agitation and concern for withdrawal, admission was recommended. Patient tells me he has been drinking 6-12 high alcohol content large beers daily. He has not been eating. He has been drinking some water. He has been having dry heaves but no active emesis or hematemesis. He has been falling and hitting his head, but does not have any abrasions. He denies loss of consciousness. He is very down on himself due to his alcohol dependence. He denies active suicidal ideation at this time. Repeat alcohol level was done and was 0.386. On arrival to the intensive care unit, he is extremely tremulous, but alert and oriented. He is cooperative and pleasant. [facility] Medical History Hepatosplenomegaly Portal hypertension Hepatosplenomegaly Foot osteomyelitis, right Neuropathic foot ulcer Decreased libido Erectile dysfunction Alcohol abuse (~2017) Low back pain (Unknown) Polyneuropathy (Unknown) Acne (Unknown) Hypertension (2004) Essential hypertension (09/12/16) Surgical History H/O surgical amputation of finger Hx of cholecystectomy (2001) Family History Grandmother Mental health problem Grandfather Cancer Grandmother Cancer Mother History of back problems Father Amputation leg, bilat Social History household members: spouse and family Tobacco: How many years used: 1 Smokeless tobacco user: chewing tobacco (many, many years) alcohol intake: current substance use type: does not use Meds Home Medications and Allergies Home Medications Medication Instructions Recorded Confirmed Type pregabalin 75 mg capsule 75 mg PO TID 09/26/22 03/10/25 History furosemide 40 mg tablet (Lasix) 40 mg PO DAILY #30 tabs 11/18/24 03/10/25 Rx spironolactone 25 mg tablet 25 mg PO DAILY #30 tabs 11/18/24 03/10/25 Rx folic acid 1 mg tablet 1 mg PO DAILY #30 tabs 02/26/25 03/10/25 Rx multivitamin with folic acid 400 1 tab PO DAILY #30 tabs 02/26/25 03/10/25 Rx mcg tablet (Tab-A-Carmelo) thiamine mononitrate (vit B1) 100 100 mg PO DAILY #30 tabs 02/26/25 03/10/25 Rx mg tablet lactulose 10 gram/15 mL oral 20 gm PO TID #500 mL 03/12/25 Rx solution naltrexone 50 mg tablet 50 mg PO DAILY #30 tabs 03/12/25 Rx Allergies Allergy/AdvReac Type Severity Reaction Status Date / Time No Known Drug Allergies Allergy Verified 02/23/25 08:33 Review of Systems Review of Systems Narrative: All other systems were reviewed negative Exam Vital Signs (past 8 hours): - 04/23/25 09:30 04/23/25 10:00 04/23/25 10:30 Pulse Rate 110 H 110 H 114 H Respiratory Rate 17 17 14 Blood Pressure 142/78 H Pulse Oximetry 98 50 L 92 Oxygen Delivery Method 04/23/25 11:00 04/23/25 11:30 04/23/25 11:41 Pulse Rate 87 87 85 Respiratory Rate 9 L 11 L 10 L Blood Pressure Pulse Oximetry 99 99 99 Oxygen Delivery Method CPAP 04/23/25 11:41 04/23/25 12:00 04/23/25 12:00 Pulse Rate 91 H Respiratory Rate 11 L Blood Pressure 152/74 H 143/74 H Pulse Oximetry 99 Oxygen Delivery Method 04/23/25 12:30 04/23/25 12:30 04/23/25 13:00 Pulse Rate 89 87 Respiratory Rate 9 L 9 L Blood Pressure 144/72 H Pulse Oximetry 99 99 Oxygen Delivery Method CPAP 04/23/25 13:00 04/23/25 13:30 04/23/25 13:30 Pulse Rate 81 Respiratory Rate 9 L Blood Pressure 144/72 H 154/74 H Pulse Oximetry 100 Oxygen Delivery Method 04/23/25 14:00 04/23/25 14:00 04/23/25 14:30 Pulse Rate 91 H 119 H Respiratory Rate 10 L 14 Blood Pressure 151/82 H Pulse Oximetry 100 92 Oxygen Delivery Method 04/23/25 14:30 04/23/25 15:00 04/23/25 15:00 Pulse Rate 107 H Respiratory Rate 18 Blood Pressure 163/76 H 152/65 H Pulse Oximetry 90 L Oxygen Delivery Method 04/23/25 15:30 04/23/25 15:30 04/23/25 16:00 Pulse Rate 115 H 96 H Respiratory Rate 14 11 L Blood Pressure 148/64 H Pulse Oximetry 93 99 Oxygen Delivery Method 04/23/25 16:00 Pulse Rate Respiratory Rate Blood Pressure 133/65 Pulse Oximetry Oxygen Delivery Method Oxygen Delivery Method CPAP Narrative Exam Narrative: GEN: Pleasant and cooperative middle-aged male Alert and oriented x3, extremely tremulous HEENT: Normocephalic, face symmetric, pupils equal round reactive to light, extraocular movements intact, sclerae mildly icteric, conjunctiva clear, nares patent, oropharynx reveals an intact soft and hard palate with moist mucous membranes, dentition is fair NECK: Supple, no lymphadenopathy, thyroid without enlargement or nodularity, carotids no bruits CHEST: Respiratory excursions symmetric, clear to auscultation bilaterally CV: Mildly tachycardic with regular rhythm, no murmurs, rubs, gallops, PMI can not be palpated ABD: Soft, nontender, nondistended, bowel sounds present in all 4 quadrants, body habitus limits exam EXTR: Warm, well perfused, no clubbing/cyanosis/1+ bilateral lower extremity edema, pretibial erythema/venous stasis and scaling bilaterally SKIN: Warm and dry, without rash, he has lesions from picking noted to his chest, díaz area and posterior neck NEURO: Alert and oriented x3, diffuse severe tremors noted PSYCH: Difficult to assess, but no active suicidal ideation voiced Objective Labs 04/23/25 07:45 04/23/25 07:45 Labs: Laboratory Results - last 24 hr 04/23/25 04/23/25 04/23/25 07:45 08:37 14:00 WBC 7.8 RBC 4.04 L Hgb 10.7 L Hct 32.4 L MCV 80.0 MCH 26.5 MCHC 33.1 RDW 18.0 H Plt Count 73 L Neut % (Auto) 53.5 Lymph % (Auto) 28.7 [place] % (Auto) 10.1 Eos % (Auto) 7.1 H Baso % (Auto) 0.6 Neut # (Auto) 4200 Lymph # (Auto) 2200 [place] # (Auto) 800 Eos # (Auto) 500 H Baso # (Auto) 0 Sodium 146 H Potassium 3.6 Chloride 107 Carbon Dioxide 21 L BUN 4 L Creatinine 0.80 Estimated GFR > 60 BUN/Creatinine Ratio 5.0 L Glucose 168 H Calcium 8.7 Magnesium 1.5 L Total Bilirubin 3.2 H AST 103 H ALT 35 Alkaline Phosphatase 153 H Ammonia 66 H Total Protein 8.4 H Albumin 4.3 Globulin 4.1 Albumin/Globulin Ratio 1.0 TSH 2.12 Salicylates < 1.0 Acetaminophen < 10 Ethyl Alcohol 504 H* 386 H 04/23/25 04/23/25 14:18 14:26 WBC RBC Hgb Hct MCV MCH MCHC RDW Plt Count Neut % (Auto) Lymph % (Auto) [place] % (Auto) Eos % (Auto) Baso % (Auto) Neut # (Auto) Lymph # (Auto) [place] # (Auto) Eos # (Auto) Baso # (Auto) Sodium Potassium Chloride Carbon Dioxide BUN Creatinine Estimated GFR BUN/Creatinine Ratio Glucose Calcium Magnesium Total Bilirubin AST ALT Alkaline Phosphatase Ammonia Total Protein Albumin Globulin Albumin/Globulin Ratio TSH Salicylates < 1.0 Acetaminophen < 10 Ethyl Alcohol Cancelled Assessment & Plan Assessment & Plan narrative: 1. Alcohol intoxication with severe alcohol withdrawal and agitated delirium Patient will be admitted to the intensive care unit. He will continue on the alcohol withdrawal protocol with IV diazepam. Will add IV phenobarb q.8 hours and anticipate the need for Precedex infusion which has also been ordered. Continue thiamine, multivitamin and folate. He is very disappointed in himself related to his belief that his will power should be better. I discussed that his alcohol dependence has a lot to do with his genetics. Discussed that when he is ready we will be happy to coordinate resources with him. 2. Suicidal ideation He is no longer voicing some active suicidal ideation. This was likely a function of his alcohol intoxication. 3. Normocytic anemia Hemoglobin is stable at 10.7. 4. Thrombocytopenia This is actually improved compared to his previous hospital stay. It was 48 at his last hospital visit. Up to 73 today. No active bleeding. 5. Hypernatremia He does report drinking primarily beer over the last week or so. Anticipate this will improve with hydration. 6. Hyperglycemia Random blood sugar was 168. He has no known history of diabetes. Will monitor blood sugars on tomorrow morning's labs. 7. Transaminitis He has an elevated AST at 103 and elevated alkaline phosphatase at 153. Ammonia is 66. Bilirubin is 3.2. Will recheck labs in the morning. These are not too far off compared to his labs previously. Will recheck in the morning. 8. Hypertension Await medication reconciliation. 9. History of ESBL E coli osteomyelitis of the right foot due to neuropathic ulcer Right ulcer has improved. Code status Full Prophylaxis Low Hari score Disposition Admit to intensive care unit Time-Based Coding :: [TOTAL MINUTES] spent with patient and on the chart (including review of chart, obtaining history, exam, reviewing outside data, placing orders, documenting exam and treatment plan, and counseling patient) on [DATE].
[2025-04-23] MEDS: dexmedeTOMIDine in 0.9 % NaCL 400 MCG/100 ML PLAST..BAG IV (17:52)
[2025-04-23 18:14] LABS: UR Morphine/Opiate cutoff 300 Negative (Negative); Ur Creatinine Normal (Normal); Ur Specific Gravity Normal (Normal); Urine Amphetamines Negative (Negative); Urine Barbiturates Negative (Negative); Urine Benzodiazepines Positive (Negative); Urine Cocaine Negative (Negative); Urine MDMA Negative (Negative); Urine Methamphetamines Negative (Negative); Urine Phencyclidine Negative (Negative); Urine Tetrahydrocannabinol Negative (Negative); Urine pH Normal (Normal)
[2025-04-23 18:15] LABS: Urine Methadone Negative (Negative); Urine Oxycodone Negative (Negative); Urine Tricyclic Antidepressant Negative (Negative)
--- NOTE | 2025-04-23 18:31 | PC.ADMIT ---
[email or web address] 1 Admission Note: Pt arrived via gurney, extremely tremulous and somnolent,rouses to voice and able to follow simple commands, repetitive comments. Dr Fairbanks at bedside evaluating and comforting pt. Vitals as charted, hypertensive and tachycardic. Pt was bathed and wound photos were documented. CIWA 24, valium, phenobartitol administered as ordered. Fluids and Precedex gtt infusing as ordered, pt was noted to be desaturating SPO2 60's while on CPAP, BiPAP ordered and placed. Pt tolerating well, tucker catheter ordered and place for acute urine retension (3000cc out since placement), pt tolerated well. No further pt needs at this time, care ongoing The patient,Eric Fontenot,49 y/o, was given written information regarding hospital policies, unit procedures and contact persons. Patient's smoking status: . Vital Signs - 8 hr 04/23/25 11:00 04/23/25 11:30 04/23/25 11:41 Temperature Pulse Rate 87 87 85 Respiratory Rate 9 L 11 L 10 L Blood Pressure Pulse Oximetry 99 99 99 Oxygen Delivery Method CPAP 04/23/25 11:41 04/23/25 12:00 04/23/25 12:00 Temperature Pulse Rate 91 H Respiratory Rate 11 L Blood Pressure 152/74 H 143/74 H Pulse Oximetry 99 Oxygen Delivery Method 04/23/25 12:30 04/23/25 12:30 04/23/25 13:00 Temperature Pulse Rate 89 87 Respiratory Rate 9 L 9 L Blood Pressure 144/72 H Pulse Oximetry 99 99 Oxygen Delivery Method CPAP 04/23/25 13:00 04/23/25 13:30 04/23/25 13:30 Temperature Pulse Rate 81 Respiratory Rate 9 L Blood Pressure 144/72 H 154/74 H Pulse Oximetry 100 Oxygen Delivery Method 04/23/25 14:00 04/23/25 14:00 04/23/25 14:30 Temperature Pulse Rate 91 H 119 H Respiratory Rate 10 L 14 Blood Pressure 151/82 H Pulse Oximetry 100 92 Oxygen Delivery Method 04/23/25 14:30 04/23/25 15:00 04/23/25 15:00 Temperature Pulse Rate 107 H Respiratory Rate 18 Blood Pressure 163/76 H 152/65 H Pulse Oximetry 90 L Oxygen Delivery Method 04/23/25 15:30 04/23/25 15:30 04/23/25 16:00 Temperature Pulse Rate 115 H 96 H Respiratory Rate 14 11 L Blood Pressure 148/64 H Pulse Oximetry 93 99 Oxygen Delivery Method 04/23/25 16:00 04/23/25 16:24 04/23/25 16:30 Temperature 97.8 F Pulse Rate 113 H 88 Respiratory Rate 20 9 L Blood Pressure 133/65 185/87 H Pulse Oximetry 95 100 Oxygen Delivery Method 04/23/25 16:30 04/23/25 17:19 Temperature Pulse Rate Respiratory Rate Blood Pressure 132/64 Pulse Oximetry Oxygen Delivery Method CPAP
--- NOTE | 2025-04-23 21:41 | PC.WOUNDPHOT ---
Photos taken by Dontae Garcia RN
[2025-04-23 22:42] LABS: MRSA (Nasal) PCR NOT DETECTED (Not Detect)
[2025-04-24] VITALS (28 sets, daily range): BP systolic 91–127; BP diastolic 53–77; PULSE 70–112; RESP 14–24; TEMP 30–37.6; O2SAT 94–100
[2025-04-24] MEDS: PHENobarbital 65 MG/ML VIAL IV ×4 (00:32→23:28)
[2025-04-24] MEDS: dexmedeTOMIDine in 0.9 % NaCL 400 MCG/100 ML PLAST..BAG 9.072 MCG IV ×2 (01:45→21:54)
[2025-04-24 04:58] LABS: Add Manual Diff / Slide Review NO; Basophils Absolute Auto 0 /uL (0-100); Basophils Percent Auto 0.5 % (0-2); Eosinophils Absolute Auto 100 /uL (0-450); Eosinophils Percent Auto 4.6 % (2-4); Hematocrit 26.9 % (41-53); Hemoglobin 8.8 g/dL (13.5-17.5); Lymphocytes Absolute Auto 700 /uL (1100-4500); Lymphocytes Percent Auto 31.9 % (25-40); Mean Corpuscular HGB Conc 32.7 % (30-36); Mean Corpuscular Hemoglobin 26.4 PG (26-34); Mean Corpuscular Volume 80.7 fL (80-100); Monocytes Absolute Auto 200 /uL (0-900); Monocytes Percent Auto 9.7 % (3-14); Neutrophils Absolute Auto 1200 /uL (1500-7000); Neutrophils Percent Auto 53.3 % (50-75); Red Blood Cell Count 3.33 X10^6/uL (4.5-5.9); White Blood Cell Count 2.2 X10^3/uL (4.5-11.0)
[2025-04-24 05:00] LABS: Magnesium 1.6 mg/dL (1.6-2.3); Platelet Count 33 X10^3/uL (150-400)
[2025-04-24 05:02] LABS: Alanine Aminotransferase 26 IU/L (<50); Albumin 3.3 g/dL (3.5-5.0); Albumin Globulin Ratio 0.9 (1.0-2.8); Alkaline Phosphatase 119 U/L (38-126); Aspartate Aminotransferase 84 IU/L (17-59); BUN Creatinine Ratio 8.2 (6-22); Bilirubin Total 2.8 mg/dL (0.2-1.3); Blood Urea Nitrogen 6 mg/dL (9-20); Carbon Dioxide 25 mmol/L (22-32); Chloride 111 mmol/L (98-107); Estimated Glomerular Filt Rate > 60 mL/min (>60); Globulin 3.5 g/dL (1.7-4.1); Glucose 140 mg/dL (70-99); HEMOLYSIS < 15 (0-50); Potassium 3.9 mmol/L (3.4-5.1); Sodium 144 mmol/L (137-145); Total Protein 6.8 g/dL (6.3-8.2)
[2025-04-24 05:22] LABS: Anisocytosis 1+; Platelet Estimate Decreased on smear
[2025-04-24 08:49] LABS: Ammonia (NH3) 54 umol/L (9-30)
--- NOTE | 2025-04-24 09:06 | PM.PN.1 ---
Subjective Subjective Interval history: 49 yo male with history of alcohol dependence with withdrawal and osteomyelitis secondary to ESBL E coli in the setting of right foot neuropathic ulcer, hepatosplenomegaly, portal hypertension, peripheral neuropathy and hypertension who was admitted yesterday with severe alcohol intoxication and subsequent withdrawal. He did require BiPAP yesterday afternoon and overnight secondary to obstructive symptoms and hypoxia that did not respond to CPAP, which she usually uses at home. Earlier this morning, he pulled it off. He reports he is feeling better today. He is asking for water and breakfast. Exam Vital Signs (past 8 hours): - 04/24/25 02:00 04/24/25 03:00 04/24/25 03:13 Temperature Pulse Rate 87 81 Respiratory Rate 23 18 Blood Pressure 91/53 L 101/58 L Pulse Oximetry 100 100 Oxygen Delivery Method Fraction of Inspired Oxygen 35 28 35 04/24/25 04:00 04/24/25 04:00 04/24/25 05:00 Temperature 98.8 F Pulse Rate 79 Respiratory Rate 24 18 Blood Pressure 99/58 L 98/54 L Pulse Oximetry 100 100 Oxygen Delivery Method BiPAP Fraction of Inspired Oxygen 35 04/24/25 06:00 Temperature Pulse Rate 78 Respiratory Rate 16 Blood Pressure 104/64 Pulse Oximetry 100 Oxygen Delivery Method Fraction of Inspired Oxygen 35 Fraction of Inspired Oxygen 35 Oxygen Delivery Method BiPAP Narrative Exam Narrative: GEN: Pleasant and cooperative middle-aged male Alert and oriented x3, no tremors noted HEENT: Normocephalic, face symmetric CHEST: Respiratory excursions symmetric, clear to auscultation bilaterally CV: Mildly tachycardic with regular rhythm, no murmurs, rubs, gallops, PMI can not be palpated ABD: Soft, nontender, nondistended, bowel sounds present in all 4 quadrants, body habitus limits exam EXTR: Warm, well perfused, no clubbing/cyanosis/1+ bilateral lower extremity edema, pretibial erythema/venous stasis and scaling bilaterally NEURO: Alert and oriented x3, no tremors noted this morning Objective Labs 04/24/25 04:10 04/24/25 04:10 Labs: Laboratory Results - last 24 hr 04/23/25 04/23/25 04/23/25 14:00 14:18 14:26 WBC RBC Hgb Hct MCV MCH MCHC RDW Plt Count Neut % (Auto) Lymph % (Auto) [place] % (Auto) Eos % (Auto) Baso % (Auto) Neut # (Auto) Lymph # (Auto) [place] # (Auto) Eos # (Auto) Baso # (Auto) Platelet Estimate RBC Morphology Anisocytosis Sodium Potassium Chloride Carbon Dioxide BUN Creatinine Estimated GFR BUN/Creatinine Ratio Glucose Calcium Magnesium Total Bilirubin AST ALT Alkaline Phosphatase Ammonia Total Protein Albumin Globulin Albumin/Globulin Ratio Nasal Screen MRSA (PCR) Salicylates < 1.0 U Opiates 300ng/mL cut Ur Oxycodone Screen Urine Methadone Screen Acetaminophen < 10 Ur Barbiturates Screen U Tricyclic Antidepress Ur Phencyclidine Scrn Ur Amphetamines Screen U Methamphetamines Scrn Ur MDMA Scrn (Ecstasy) U Benzodiazepines Scrn Urine Cocaine Screen U Marijuana (THC) Screen Urine pH Urine Specific [place] Ethyl Alcohol 386 H Cancelled Ur Creatinine 04/23/25 04/23/25 04/24/25 17:06 17:32 04:10 WBC 2.2 L D RBC 3.33 L Hgb 8.8 L Hct 26.9 L MCV 80.7 MCH 26.4 MCHC 32.7 RDW 18.0 H Plt Count 33 L* Neut % (Auto) 53.3 Lymph % (Auto) 31.9 [place] % (Auto) 9.7 Eos % (Auto) 4.6 H Baso % (Auto) 0.5 Neut # (Auto) 1200 L Lymph # (Auto) 700 L [place] # (Auto) 200 Eos # (Auto) 100 Baso # (Auto) 0 Platelet Estimate Decreased on smear RBC Morphology See below Anisocytosis 1+ H Sodium 144 Potassium 3.9 Chloride 111 H Carbon Dioxide 25 BUN 6 L Creatinine 0.73 Estimated GFR > 60 BUN/Creatinine Ratio 8.2 Glucose 140 H Calcium 8.0 L Magnesium 1.6 Total Bilirubin 2.8 H AST 84 H ALT 26 Alkaline Phosphatase 119 Ammonia Total Protein 6.8 Albumin 3.3 L Globulin 3.5 Albumin/Globulin Ratio 0.9 L Nasal Screen MRSA (PCR) Not detected Salicylates U Opiates 300ng/mL cut Negative Ur Oxycodone Screen Negative Urine Methadone Screen Negative Acetaminophen Ur Barbiturates Screen Negative U Tricyclic Antidepress Negative Ur Phencyclidine Scrn Negative Ur Amphetamines Screen Negative U Methamphetamines Scrn Negative Ur MDMA Scrn (Ecstasy) Negative U Benzodiazepines Scrn Positive H Urine Cocaine Screen Negative U Marijuana (THC) Screen Negative Urine pH Normal Urine Specific [place] Normal Ethyl Alcohol Ur Creatinine Normal 04/24/25 08:30 WBC RBC Hgb Hct MCV MCH MCHC RDW Plt Count Neut % (Auto) Lymph % (Auto) [place] % (Auto) Eos % (Auto) Baso % (Auto) Neut # (Auto) Lymph # (Auto) [place] # (Auto) Eos # (Auto) Baso # (Auto) Platelet Estimate RBC Morphology Anisocytosis Sodium Potassium Chloride Carbon Dioxide BUN Creatinine Estimated GFR BUN/Creatinine Ratio Glucose Calcium Magnesium Total Bilirubin AST ALT Alkaline Phosphatase Ammonia 54 H Total Protein Albumin Globulin Albumin/Globulin Ratio Nasal Screen MRSA (PCR) Salicylates U Opiates 300ng/mL cut Ur Oxycodone Screen Urine Methadone Screen Acetaminophen Ur Barbiturates Screen U Tricyclic Antidepress Ur Phencyclidine Scrn Ur Amphetamines Screen U Methamphetamines Scrn Ur MDMA Scrn (Ecstasy) U Benzodiazepines Scrn Urine Cocaine Screen U Marijuana (THC) Screen Urine pH Urine Specific [place] Ethyl Alcohol Ur Creatinine PFSH Medical History Hepatosplenomegaly Portal hypertension Hepatosplenomegaly Foot osteomyelitis, right Neuropathic foot ulcer Decreased libido Erectile dysfunction Alcohol abuse (~2016) Low back pain (Unknown) Polyneuropathy (Unknown) Acne (Unknown) Hypertension (2004) Essential hypertension (09/12/16) Surgical History H/O surgical amputation of finger Hx of cholecystectomy (2001) Family History Grandmother Mental health problem Grandfather Cancer Grandmother Cancer Mother History of back problems Father Amputation leg, bilat Social History household members: spouse and family Tobacco: How many years used: 1 Smokeless tobacco user: chewing tobacco (many, many years) alcohol intake: current substance use type: does not use Assessment & Plan Assessment & Plan narrative: 1. Alcohol intoxication with severe alcohol withdrawal and agitated delirium Patient was placed on the CIWA protocol yesterday. He required diazepam, phenobarbital, and is now on Precedex. His maximum score since admission 24 at 5:20 last evening. Overnight he had a high of 11. This morning it was 7. He continues on 0.3 mcgs/kgs/hr. 2. Suicidal ideation Resolved after his intoxication resolved. 3. Normocytic anemia Hemoglobin is down to 8.8 this morning. His baseline is typically around 9.3-9.4. No evidence of active bleeding. Likely marrow suppression related to his alcohol use. 4. Thrombocytopenia Platelet count is down to 33 this morning. Again likely secondary to marrow suppression from alcohol use. 5. Hypernatremia Improved today at 144. We will continue to monitor. 6. Hyperglycemia Random blood sugar was 168 in the emergency department. He has no known history of diabetes. On this morning's labs, blood sugar is 140. Will check a hemoglobin A1c. 7. Transaminitis On admission, he had an elevated AST at 103 and elevated alkaline phosphatase at 153. Ammonia is 66. Bilirubin was 3.2. Mildly improved today with bilirubin of 2.8, AST of 84, alkaline phosphatase has normalized, ALT is 26. Ammonia is down to 54 this morning. As he is alert and oriented x3, I will not treat the ammonia aggressively 8. Hypertension Await medication reconciliation. 9. History of ESBL E coli osteomyelitis of the right foot due to neuropathic ulcer Right ulcer has improved. Code status Full Prophylaxis Low Hari score Disposition Continue ICU level of care secondary to need for Precedex infusion Time-Based Coding :: [TOTAL MINUTES] spent with patient and on the chart (including review of chart, obtaining history, exam, reviewing outside data, placing orders, documenting exam and treatment plan, and counseling patient) on [DATE].
[2025-04-24] MEDS: MULTIVITAMIN 1 TABLET 1 TAB PO (09:22)
[2025-04-24] MEDS: FOLIC ACID 1 MG TABLET PO (09:22)
[2025-04-24] MEDS: MAGNESIUM CHLORIDE 64 MG TABLET 128 MG PO (09:22)
[2025-04-24 09:39] LABS: Hemoglobin A1C% w Est Avg Glu 5.8 % (4.0-6.0)
[2025-04-24] MEDS: NICOTINE 21 MG PATCH TOP (09:47)
[2025-04-24] MEDS: THIAMINE 100 MG in SODIUM CHLORIDE 0.9% 100 ML 404 MG IV (11:53)
[2025-04-24] MEDS: dexmedeTOMIDine in 0.9 % NaCL 400 MCG/100 ML PLAST..BAG 6.804 MCG IV (11:53)
[2025-04-24] MEDS: diazePAM 10 MG/2 ML SYRINGE IV (12:17)
[2025-04-24] MEDS: SODIUM CHLORIDE 0.9% 1,000 ML 100 ML IV ×2 (12:52→21:55)
--- NOTE | 2025-04-24 15:21 | CM.DPNOTE ---
DCP note DOOR GLASS INSTALLER reviewed EMR CIWAs 14-5 throughout day. pt no longer expressing SI. per RN, pt shameful of own behavior. spouse remains admitted to floor and MIL boarding in ED. see their charts for further information on barriers to safe dc home. per provider, off of BiPAP and remains on precedex. This DOOR GLASS INSTALLER was working closely with ED DOOR GLASS INSTALLER Cinthia throughout the day. per Cinthia, comm websphere architect Leonardo likely to send animal control to house to care for cats. asked if it was known if cats had any access to food or water. DOOR GLASS INSTALLER met briefly with pt in room. pt sleepy throughout interaction, claims cats have access to minimal water and likely no food. DOOR GLASS INSTALLER told pt comm paramedics likely to send animal control to house for cats. pt fell back asleep mid sentence when this DOOR GLASS INSTALLER attempted to inquire more about his status/continue DCP conversation. DOOR GLASS INSTALLER updated ED DOOR GLASS INSTALLER. P: pending medical clearance/coordination with pt /family/comm resources. consider [facility] for placement as needed. will continue to follow closely REE Crawford
[2025-04-24] MEDS: HYDROMORPHONE 0.5 MG INJ IV (23:27)
[2025-04-25] VITALS (26 sets, daily range): BP systolic 105–150; BP diastolic 52–75; PULSE 81–100; RESP 15–24; TEMP 37.1; O2SAT 96–100
[2025-04-25] MEDS: NICOTINE 21 MG PATCH TOP ×3 (02:21→21:24)
[2025-04-25] MEDS: diazePAM 10 MG/2 ML SYRINGE IV ×2 (04:36→07:56)
[2025-04-25 05:31] LABS: Add Manual Diff / Slide Review NO; Basophils Absolute Auto 0 /uL (0-100); Basophils Percent Auto 0.3 % (0-2); Eosinophils Absolute Auto 200 /uL (0-450); Eosinophils Percent Auto 5.2 % (2-4); Hematocrit 26.1 % (41-53); Hemoglobin 8.8 g/dL (13.5-17.5); Lymphocytes Absolute Auto 700 /uL (1100-4500); Lymphocytes Percent Auto 21.5 % (25-40); Mean Corpuscular HGB Conc 33.8 % (30-36); Mean Corpuscular Hemoglobin 26.7 PG (26-34); Monocytes Absolute Auto 200 /uL (0-900); Monocytes Percent Auto 7.7 % (3-14); Neutrophils Absolute Auto 2100 /uL (1500-7000); Neutrophils Percent Auto 65.3 % (50-75); Red Blood Cell Count 3.31 X10^6/uL (4.5-5.9); Red Cell Distribution Width 17.7 % (11.6-14.8); White Blood Cell Count 3.2 X10^3/uL (4.5-11.0)
[2025-04-25 05:33] LABS: Alanine Aminotransferase 25 IU/L (<50); Albumin 3.3 g/dL (3.5-5.0); Alkaline Phosphatase 142 U/L (38-126); Aspartate Aminotransferase 71 IU/L (17-59); BUN Creatinine Ratio 9.1 (6-22); Bilirubin Total 3.2 mg/dL (0.2-1.3); Blood Urea Nitrogen 6 mg/dL (9-20); Calcium 8.3 mg/dL (8.4-10.2); Carbon Dioxide 25 mmol/L (22-32); Chloride 103 mmol/L (98-107); Estimated Glomerular Filt Rate > 60 mL/min (>60); Globulin 3.4 g/dL (1.7-4.1); Glucose 140 mg/dL (70-99); HEMOLYSIS < 15 (0-50); Potassium 3.3 mmol/L (3.4-5.1); Sodium 133 mmol/L (137-145); Total Protein 6.7 g/dL (6.3-8.2)
[2025-04-25 05:35] LABS: Magnesium 1.3 mg/dL (1.6-2.3)
[2025-04-25 05:42] LABS: Platelet Count 25 X10^3/uL (150-400)
[2025-04-25 06:02] LABS: Anisocytosis 1+; Platelet Estimate Decreased on smear
[2025-04-25 06:05] LABS: Microcytosis 1+
[2025-04-25] MEDS: PANTOPRAZOLE DR 40 MG TABLET PO (06:12)
--- NOTE | 2025-04-25 07:54 | P.PN_ITS ---
Subjective Subjective Interval history: Summary: 49 yo male with history of alcohol dependence with withdrawal and osteomyelitis secondary to ESBL E coli in the setting of right foot neuropathic ulcer, hepatosplenomegaly, portal hypertension, peripheral neuropathy and hypertension who was admitted yesterday with severe alcohol intoxication and subsequent withdrawal. He did require BiPAP yesterday afternoon and overnight secondary to obstructive symptoms and hypoxia that did not respond to CPAP, which she usually uses at home. Earlier this morning, he pulled it off. He reports he is feeling better today. He is asking for water and breakfast. S: He was having visual hallucinations. He denies headache, nausea, or diarrhea. No pain concerns. He was not confused and has no tremor. Exam Vital Signs (past 8 hours): - 04/25/25 00:00 04/25/25 00:00 04/25/25 01:00 Pulse Rate 98 H 98 H Respiratory Rate 19 18 Blood Pressure 144/75 H 150/70 H Pulse Oximetry 96 98 04/25/25 01:00 04/25/25 01:00 04/25/25 02:00 Pulse Rate 97 H Respiratory Rate 17 Blood Pressure 150/70 H 131/61 Pulse Oximetry 98 04/25/25 02:00 04/25/25 03:00 04/25/25 03:00 Pulse Rate 100 H 87 Respiratory Rate 20 16 Blood Pressure 129/66 Pulse Oximetry 97 99 04/25/25 04:00 04/25/25 04:00 04/25/25 05:00 Pulse Rate 84 90 Respiratory Rate 15 23 Blood Pressure 131/68 126/60 Pulse Oximetry 98 98 04/25/25 05:00 04/25/25 06:00 04/25/25 06:00 Pulse Rate 86 Respiratory Rate 15 Blood Pressure 126/60 112/63 Pulse Oximetry 99 Fraction of Inspired Oxygen 35 Oxygen Delivery Method Room Air Oxygen Flow Rate 0 Narrative Exam Narrative: NAD, alert and oriented. Fluent speech. Mildly unkempt. Lungs are clear, normal rate and effort. Heart is regular, no murmur gallop or rub. Abdomen is soft, non distended. Extremities are free of edema. Has a chronic wound in the right heel. Objective Labs 04/25/25 04:30 04/25/25 04:30 Labs: Laboratory Results - last 24 hr 04/24/25 04/24/25 04/25/25 04:10 08:30 04:30 WBC 3.2 L RBC 3.31 L Hgb 8.8 L Hct 26.1 L MCV 79.0 L MCH 26.7 MCHC 33.8 RDW 17.7 H Plt Count 25 L* Neut % (Auto) 65.3 Lymph % (Auto) 21.5 L [place] % (Auto) 7.7 Eos % (Auto) 5.2 H Baso % (Auto) 0.3 Neut # (Auto) 2100 Lymph # (Auto) 700 L [place] # (Auto) 200 Eos # (Auto) 200 Baso # (Auto) 0 Platelet Estimate Decreased on smear RBC Morphology See below Anisocytosis 1+ H Microcytosis 1+ H Sodium 133 L D Potassium 3.3 L Chloride 103 Carbon Dioxide 25 BUN 6 L Creatinine 0.66 Estimated GFR > 60 BUN/Creatinine Ratio 9.1 Glucose 140 H Hemoglobin A1c 5.8 Calcium 8.3 L Magnesium 1.3 L Total Bilirubin 3.2 H AST 71 H ALT 25 Alkaline Phosphatase 142 H Ammonia 54 H Total Protein 6.7 Albumin 3.3 L Globulin 3.4 Albumin/Globulin Ratio 1.0 PFSH Medical History Hepatosplenomegaly Portal hypertension Hepatosplenomegaly Foot osteomyelitis, right Neuropathic foot ulcer Decreased libido Erectile dysfunction Alcohol abuse (~2016) Low back pain (Unknown) Polyneuropathy (Unknown) Acne (Unknown) Hypertension (2004) Essential hypertension (09/12/16) Surgical History H/O surgical amputation of finger Hx of cholecystectomy (2001) Family History Grandmother Mental health problem Grandfather Cancer Grandmother Cancer Mother History of back problems Father Amputation leg, bilat Social History household members: spouse and family Tobacco: How many years used: 1 Smokeless tobacco user: chewing tobacco (many, many years) alcohol intake: current substance use type: does not use Assessment & Plan Assessment & Plan narrative: 1. Alcohol intoxication with severe alcohol withdrawal and agitated delirium Patient was placed on the CIWA protocol yesterday. He required diazepam, phenobarbital, and is now on Precedex. His maximum score since admission 24 at 5:20 last evening. Overnight he had a high of 11. This morning it was 7. He continues on 0.3 mcgs/kgs/hr. 2. Suicidal ideation Resolved after his intoxication resolved. 3. Normocytic anemia Hemoglobin is down to 8.8 this morning. His baseline is typically around 9.3- 9.4. No evidence of active bleeding. Likely marrow suppression related to his alcohol use. 4. Thrombocytopenia Platelet count is down to 33 this morning. Again likely secondary to marrow suppression from alcohol use. 5. Hypernatremia Improved today at 144. We will continue to monitor. 6. Hyperglycemia Random blood sugar was 168 in the emergency department. He has no known history of diabetes. On this morning's labs, blood sugar is 140. Will check a hemoglobin A1c. 7. Transaminitis On admission, he had an elevated AST at 103 and elevated alkaline phosphatase at 153. Ammonia is 66. Bilirubin was 3.2. Mildly improved today with bilirubin of 2.8, AST of 84, alkaline phosphatase has normalized, ALT is 26. Ammonia is down to 54 this morning. As he is alert and oriented x3, I will not treat the ammonia aggressively 8. Hypertension Await medication reconciliation. 9. History of ESBL E coli osteomyelitis of the right foot due to neuropathic ulcer Right ulcer has improved. PLAN: -stopped phenobarbital, add Librium 25 q.6 hours. -PT evaluation. -monitor low platelet count. -no DVT prophylaxis with heparin given thrombocytopenia. Code status Full Prophylaxis Low Hari score Time-Based Coding :: [TOTAL MINUTES] spent with patient and on the chart (including review of chart, obtaining history, exam, reviewing outside data, placing orders, documenting exam and treatment plan, and counseling patient) on [DATE].
[2025-04-25] MEDS: dexmedeTOMIDine in 0.9 % NaCL 400 MCG/100 ML PLAST..BAG 6.804 MCG IV ×2 (07:55→23:43)
[2025-04-25] MEDS: SODIUM CHLORIDE 0.9% 1,000 ML 100 ML IV (07:55)
[2025-04-25] MEDS: PHENobarbital 65 MG/ML VIAL IV (07:56)
[2025-04-25] MEDS: FOLIC ACID 1 MG TABLET PO (08:04)
[2025-04-25] MEDS: MULTIVITAMIN 1 TABLET 1 TAB PO (08:04)
[2025-04-25] MEDS: POTASSIUM CHLORIDE 20 MEQ TAB 40 MEQ PO ×2 (08:13→16:17)
[2025-04-25] MEDS: MAGNESIUM CHLORIDE 64 MG TABLET 128 MG PO ×2 (08:13→16:17)
[2025-04-25] MEDS: THIAMINE 100 MG in SODIUM CHLORIDE 0.9% 100 ML 404 MG IV (09:48)
--- NOTE | 2025-04-25 11:05 | CM.DPC ---
DCP Cont: Per , pt with CIWA 12 this morning and to start on Librium and pt with some visual hallucinations and tucker discontinued and to start ambulating and not yet medically stable to discharge. SW met bedside with pt and he confirms he is aware that his spouse remains in the hospital and also his Mother inlaw now getting admitted to the floor and she was unable to work with therapies for safe d/c home alone. Pt confirms that their house is a total disaster inside but was not aware that the water is currently shut off to the house, states it has been shut off in the past due to late payment of the bill but had been turned back on. Pt states there is lots of food in the house, much of it canned or shelf stable, but acknowledges that his spouse or MIL would not be able to prepare the food themselves at this time and that he has been the one to prepare meals, the only one driving, and confirms he brings the alcohol into the house. He confirms that spouse will pester me non stop to give her alcohol and I eventually give in to get her to stop but my MIL very rarely drinks. He states that MIL has been fairly independent with ADLs until this admission. Pt able to admit that he has not followed through with outpt NAA tx/assessment at [facility] after discharge the past 3-4 times he has been admitted to the hospital and he is in some denial about his ability to follow through with outpt tx at this time. SW discussed the recommendation of Inpt ETOH tx and pt initially discussed the barriers (cats at home and needing to get the water to the house turned back on as he states they do have a couple that has been renting one of their units but moving at the end of the month and a single female renting their other unit). SW discussed possible ways to meet these needs while admitted and still work on plan of Inpt ETOH tx at discharge. Pt currently voluntary with Inpt tx as long as his spouse and MIL have a safe discharge plan (ideally both going to SNF rehab to strengthen). Currently pt is not medically cleared to begin the process of attempting Inpt ETOH tx today and if pt becomes Involuntary with tx then encourage SW to call DCR to discuss if pt might meet criteria for Storm's Law for Involuntary Placement at Inpt ETOH tx facility. Plan: SW to follow closely for ideal plan of d/c to Inpt ETOH tx at d/c and ongoing efforts to get spouse and MIL strengthened with SNF rehab under insurance (if they have a billable/skillable need) and then LTC placement. REE Carvalho
[2025-04-25] MEDS: PREGABALIN 75 MG CAPSULE PO ×3 (12:13→21:25)
[2025-04-25] MEDS: FUROSEMIDE 40 MG TABLET PO (12:13)
[2025-04-25] MEDS: SPIRONOLACTONE 25 MG TABLET PO (12:13)
--- NOTE | 2025-04-25 12:49 | PT.IIE ---
Current Diagnoses Alcohol dependence with withdrawal delirium (04/23/25) Surgical History (Last Reviewed 04/25/25 @ 07:55 by Otto George MD) H/O surgical amputation of finger Hx of cholecystectomy (2001) Medical History (Last Reviewed 04/25/25 @ 07:55 by Otto George MD) Acne (Unknown) Alcohol abuse (~2016) Decreased libido Erectile dysfunction Essential hypertension (09/12/16) Foot osteomyelitis, right Hepatosplenomegaly Hepatosplenomegaly Hypertension (2004) Low back pain (Unknown) Neuropathic foot ulcer Polyneuropathy (Unknown) Portal hypertension Physical Therapy Inpatient Evaluation/Re-Eval M1 PT/OT-IP Prior Functional Status Start: 04/25/25 12:09 Freq: NEEDED Status: Active Protocol: Document 04/25/25 12:10 MB (Rec: 04/25/25 12:49 MB Desktop) Medical Review Prior Functional Status Medical History Reviewed Yes Diet/Fluid Consistency Regular Communication WNLs Mobility and Gait Pt reports falls, does not use RW in the house, uses RW outside of the house Activities of Daily Living and IADL's Pt drives, does not perform a lot of self-care as far as showering, per his report. His post-op shoes are very dirty and he has multiple skin scratches over his body, right 5th MTP plantar wound and small wound proximal heel left foot dressed by nsg before PT gets pt up Social History Household Members spouse,family Living Arrangements House Number of Floors (Floors) One Floor Number of Stairs To Enter/Railing? 4 steps and left rail to enter Home Environment Standard Height Toilet,Tub/ Shower Home Equipment Front Wheel Walker,Hand Held Shower,Grab Bars In Shower Additional Social History Comment Not working M2 PT-IP Current Condition Start: 04/25/25 12:09 Freq: NEEDED Status: Active Protocol: Document 04/25/25 12:10 MB (Rec: 04/25/25 12:49 MB Desktop) Physical Therapy Current Condition Current Condition Evaluation Date 04/25/25 Treatment Diagnosis SI M3 PT-IP Subjective Start: 04/25/25 12:09 Freq: NEEDED Status: Active Protocol: Document 04/25/25 12:10 MB (Rec: 04/25/25 12:49 MB Desktop) Subjective Physical Therapy Visit Type Type Initial Evaluation Visit Start Time 12:10 Visit Stop Time 12:25 Notes Pt with B plantar wounds and post-op shoes, spoke with MD and will not make changes to foot wear or WB at this time given questionable pt compliance/safety. Also, MD putting in OOB order. Number of FLEX O WRITER OPERATOR Visits 0 Physical Therapy Visit Comments Patient Comments Pt states he would like to get up. Therapy Pain Assessment Pain When Pain Assessed At Rest Pain Present Pain Present Denied Pain M4 PT-IP Mobility and Gait Start: 04/25/25 12:09 Freq: NEEDED Status: Active Protocol: Document 04/25/25 12:10 MB (Rec: 04/25/25 12:49 MB Desktop) PT-Bed Mobility Assessment Supine to Sit Supine to Sit Standby Assistance,Head of Bed Elevated,Bedrails Scooting Scooting to Edge of Bed Standby Assistance PT-Transfer Assessment Sit to and From Stand Sit to and from Stand Standby Assistance,1 Person Assistance,Use of Upper Extremities Equipment Transfer Assistive Device Gait Belt,Front Wheeled Walker Orthotic/Prosthetic Devices or Brace: Yes Transfers Transfer Destination Chair Transfer Ability Level of Assist Contact Guard Assistance,1 Person Assistance,Use of Upper Extremities Comments Mobility Comments Dependent to don B post-op shoes after nsg dresses wounds , post-op shoes are very dirty Gait Assessment Gait Gait Assistance Required: Contact Guard Assist Distance (Feet) 3 Able to Maintain Weight Bearing Status Yes During Gait Assistive Devices Assistive Device Gait Belt,Front Wheeled Walker Gait Deviations General Gait Pattern Decreased Stride Length, Decreased Feet Clearance, Flexed Trunk,Step-to Gait,Wide Based Gait Factors Limiting Gait Function Factors Limiting Gait Function Decreased Sensation,Difficulty Following Directions, Incoordination,Limited Range of Motion,Poor Balance,Poor Safety Awareness PT-Balance Assessment Sitting Balance and Reactions Static Sitting Balance Ability Good Dynamic Sitting Balance Ability Good Standing Balance and Reactions Static Standing Balance Ability Good Dynamic Standing Balance Ability Good Device Used RW M5 PT-IP Objective Assessments Start: 04/25/25 12:09 Freq: NEEDED Status: Active Protocol: Document 04/25/25 12:10 MB (Rec: 04/25/25 12:49 MB Desktop) Orientation Orientation/Cognition Level of Alertness Alert Orientation Name,Age,Birthday,Month,Date, Year,Place,Situation Language Function Ability No Deficits Noted Safety Awareness Decreased Safety Awareness Memory Description No Deficits Noted Gross Range of Motion Upper Extremity ROM Impairments Defer to OT Lower Extremity ROM Assessment Bilaterally Impaired Impairments R foot is swollen, B LEs appear to have cellulitis, multiple skin wounds, limited B ankle movement Strength Lower Extremity Strength Assessment Bilaterally Impaired Comments Strength Comments Did not MMT given skin issues and LEs are functional Coordination Assessment Gross Coordination Gross Coordination Impaired Sensation Assessment Sensation Gross Sensation Right LE Impaired,Left LE Impaired M6 PT-IP Treatment Start: 04/25/25 12:09 Freq: NEEDED Status: Active Protocol: Document 04/25/25 12:10 MB (Rec: 04/25/25 12:49 MB Desktop) Physical Therapy Treatment Education Education Provided Safety M7 PT-IP Assessment and Plan Start: 04/25/25 12:09 Freq: NEEDED Status: Active Protocol: Document 04/25/25 12:10 MB (Rec: 04/25/25 12:49 MB Desktop) PT Summary Assessment and Plan Potential Rehabilitation Potential Fair Status of Condition at Evaluation Evolving Summary Impairments ROM,Strength,Balance, Coordination,Sensation,Bed Mobility,Transfers,Gait, Activity Tolerance Assessment Summary Pt is a 49 y/o male presenting with SI and his goal is to get to alcohol rehab at d/c. Per rounds, PT consult to see if pt can mobilize well enough for this. He can and recommend d/c with rolling walker and B post-op shoes, may consider getting new ones if his dressings are dirty today given presentation of current post-op shoes. Pt's home situation is poor and both his and MIL, with whom he lives, all are currently adm in this hospital . Overall, pt appears unkempt and he has multiple areas of skin scratches and breakdown, legs appear like cellulitis and wounds plantar feet. Goals Bed Mobility Goal Independent Transfer Goal Independent,Front Wheeled Walker,Four Wheeled Walker Gait Goal Independent,Front Wheel Walker ,Four Wheel Walker Gait Distance 75 Other Goals Recommend limiting gait distance to functional distances as needed given foot wounds Pt will ascend and descend 4 steps with left rail to allow safe home entrance. Days to Meet Goals 5 Frequency of Treatment Frequency Of Treatment Once a Day Treatment Plan Physical Therapy Treatment Plan Bed Mobility Training,Transfer Training,Gait Training, Therapeutic Exercise,Balance Retraining,Discharge Planning, Neuromuscular Re-ed, Coordination Retraining Recommendations To Nursing Amount of Assist Needed 1 Person Assist Discharge Recommendations Other Discharge Recommendations Per pt, alcohol rehab Transportation Needs at Discharge Private Vehicle - PT assist 1
[2025-04-25] MEDS: LORazepam 1 MG TABLET PO ×2 (14:22→23:51)
--- NOTE | 2025-04-25 15:29 | OT.IP.EVAL ---
Current Diagnoses Alcohol dependence with withdrawal delirium (04/23/25) Past Medical History (Last Reviewed 04/25/25 @ 07:55 by Otto George MD) Acne (Unknown) Alcohol abuse (~2017) Decreased libido Erectile dysfunction Essential hypertension (09/12/16) Foot osteomyelitis, right Hepatosplenomegaly Hepatosplenomegaly Hypertension (2004) Low back pain (Unknown) Neuropathic foot ulcer Polyneuropathy (Unknown) Portal hypertension Surgical History (Last Reviewed 04/25/25 @ 07:55 by Otto George MD) H/O surgical amputation of finger Hx of cholecystectomy (2001) Occupational Therapy Inpatient Evaluation/Re-Eval M1 PT/OT-IP Prior Functional Status Start: 04/25/25 12:09 Freq: NEEDED Status: Active Protocol: Document 04/25/25 15:39 CGR (Rec: 04/25/25 15:52 CGR Desktop) Medical Review Prior Functional Status Medical History Reviewed Yes Diet/Fluid Consistency Regular Communication WNLs Mobility and Gait Pt reports falls, does not use RW in the house, uses RW outside of the house Activities of Daily Living and IADL's Pt drives, and does most of the cooking for the family. Pt states that he doesn't shower regularly but that he does do his own showering and dressing. Social History Household Members spouse,family Living Arrangements House Number of Floors (Floors) One Floor Number of Stairs To Enter/Railing? 4 steps and left rail to enter Home Environment Standard Height Toilet,Tub/ Shower Home Equipment Front Wheel Walker,Hand Held Shower,Grab Bars In Shower Employment Status Unemployed Additional Social History Comment Not working M2 OT-IP Current Condition Start: 04/25/25 15:38 Freq: Status: Active Protocol: Document 04/25/25 15:39 CGR (Rec: 04/25/25 15:52 CGR Desktop) Occupational Therapy Current Condition Current Condition Evaluation Date 04/25/25 Treatment Diagnosis SI, ETOH Diagnosis Onset Date 04/23/25 M3 OT- IP Subjective and Pain Start: 04/25/25 15:38 Freq: Status: Active Protocol: Document 04/25/25 15:39 CGR (Rec: 04/25/25 15:52 CGR Desktop) OT- Subjective Occupational Therapy Visit Type Type Initial Evaluation Visit Start Time 14:51 Visit Stop Time 15:29 Notes Pt is requesting shower. OT Pain Assessment Pain When Pain Assessed At Rest Pain Present Pain Present Denied Pain M4 OT- IP ADL's Start: 04/25/25 15:38 Freq: Status: Active Protocol: Document 04/25/25 15:39 CGR (Rec: 04/25/25 15:52 CGR Desktop) OT [id number] Comments OT Self-Feeding Comments not meal time OT ADL-Grooming General Evaluation Grooming Ability Independent Areas Needing Assistance Face Washing Comments OT Grooming Comments in shower OT ADL-Oral Care Comments Oral Care Comments not performed OT ADL-Dressing General Eval Upper Body Dressing Ability Standby Assistance Lower Body Dressing Ability Maximum Assistance Areas Needing Assistance Socks,Shoes Comments OT Dressing Comments hospital gown and socks/shoes OT ADL-Toileting General Evaluation Toileting Ability Independent Comments OT Toileting Comments urination seated on toilet OT ADL-Bathing Bathing Type Bathing Type Shower General Evaluation Bathing Ability Standby Assistance Areas Needing Assistance Retrieving/Setting Up Items Comments OT Bathing Comments Pt performed all aspects of his shower without physical assist. Noted that pt could have cleaned his feet better per patient. Pt noted that when he dried his feet, skin rolled off. M5 OT- IP IADL's Start: 04/25/25 15:38 Freq: Status: Active Protocol: Document 04/25/25 15:39 CGR (Rec: 04/25/25 15:52 CGR Desktop) OT-Instrumental Activities of Daily Living Deficits IADL Deficits Identified Deficits Home Safety Awareness Awareness of Need for Assistance at Home Decreased Awareness Ability to Problem Solve Emergency Able to Problem Solve Situations Medication Management Medication Management No Deficits Identified Money Management Money Management No Deficits Identified Meal Preparation Meal Preparation No Deficits Identified Frame Repairer Frame Repairer No Deficits Identified Driving Driving Comments 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 OT- IP Functional Cognition Start: 04/25/25 15:38 Freq: Status: Active Protocol: Document 04/25/25 15:39 CGR (Rec: 04/25/25 15:52 CGR Desktop) Cognitive Factors Limiting Selfcare Function Cognitive Ability Level of Alertness Alert Patient Orientation Name,Age,Birthday,Month,Date, Year,Day of Week,Place, Situation Attention Span Ability Capable of Focused Attention, Capable of Sustained Attention Ability to Follow Commands Able to Follow One Step Commands with Increased Time, Able to Follow One Step Commands with Repetition Cognitive Comments Cognitive Assessment Comments Pt appears slow but able to answer all questions. He regularly makes derogatory comments about himself in jest . OT- Vision and Hearing OT- Hearing Assessment OT- Hearing Assessment WFL OT- Vision Assessment Visual Attentiveness WFL Occular Pursuits WFL M7 OT- IP Mobility and Balance Start: 04/25/25 15:38 Freq: Status: Active Protocol: Document 04/25/25 15:39 CGR (Rec: 04/25/25 15:52 CGR Desktop) OT- Bed Mobility Assessment Rolling Level of Assistance Independent Supine to Sit Supine to Sit Assist Independent Sit to Supine Sit to Supine Assist Independent Scooting Scooting to Edge of Bed Independent Scooting Up and Down in Bed Independent OT-Transfer Assessment Sit to and From Stand Sit to and from Stand Standby Assistance Transfers Transfer Ability Standby Assistance Technique Transfer Destination Bed,Shower Stall,Toilet Transfer Technique Stand Step Pivot Devices Transfer Assistive Devices Gait Belt,Front Wheeled Walker Comments Mobility Comments Mobility from bed to toilet then into shower. He returned to bed at end of session. OT- Balance Assessment Sitting Balance and Reactions Static Sitting Balance Ability Normal Dynamic Sitting Balance Ability Normal M8 OT- IP Objective Assessments Start: 04/25/25 15:38 Freq: Status: Active Protocol: Document 04/25/25 15:39 CGR (Rec: 04/25/25 15:52 CGR Desktop) OT Gross Range of Motion Upper Extremity Range of Motion Assessment Within Functional Limits OT Strength Upper Extremity Strength Assessment Within Functional Limits Comments Strength Comments grossly 4/5 OT- Coordination Assessment Upper Extremity Finger to Nose Test Within Functional Limits Finger Tapping Test Within Functional Limits OT-Muscle Tone Assessment Muscle Tone WNL Yes OT Sensation Assessment Edema Edema Absent M9 OT- IP Assessment and Plan Start: 04/25/25 15:38 Freq: Status: Active Protocol: Document 04/25/25 15:39 CGR (Rec: 04/25/25 15:52 CGR Desktop) OT Summary Assessment and Plan Potential Rehabilitation Potential Excellent Analytic Complexity at Evaluation Low Summary OT Impairments Balance,Functional Cognition, Functional Mobility,Grooming, Dressing,Toileting,Bathing, Toilet Transfers,Shower Transfers,Activity Tolerance Progress Towards Goals Progressing Toward Goals Assessment Summary Pt presents as a low complexity evaluation s/p admit for SI and ETOH. Pt is requesting a shower and ambulates to toilet then shower with use of walker. Pt overall is likely close to his baseline. Pt may benefit from 1-2 more OT sessions to address LB dressing and foot care. Recommend inpatient ETOH rehab if possible. Goals Dressing Goal Independent,Aviation Engineer,Sock Aid Toileting Goal Independent Bathing Goal Independent Toilet Transfer Goal Independent Shower Transfer Goal Independent Days to Meet Goals 3 Frequency of Treatment Other frequency 5x per week Treatment Plan OT Treatment Plan ADL Training,Functional Mobility,Patient/Family Education,Discharge Planning Other Treatment Recommendations and Next LB dressing and foot care. Treatment Focus Discharge Recommendations Other Discharge Recommendations inpatient ETOH rehab Transportation Needs at Discharge Private Vehicle
[2025-04-25] MEDS: chlordiazePOXIDE 25 MG CAPSULE PO ×2 (16:17→21:25)
[2025-04-26] VITALS (38 sets, daily range): BP systolic 104–161; BP diastolic 52–91; PULSE 86–136; RESP 14–33; TEMP 35.9–37.8; O2SAT 95–100
[2025-04-26] MEDS: chlordiazePOXIDE 25 MG CAPSULE PO ×2 (04:02→09:11)
[2025-04-26 05:02] LABS: Magnesium 1.2 mg/dL (1.6-2.3)
[2025-04-26 05:05] LABS: Alanine Aminotransferase 24 IU/L (<50); Albumin 3.6 g/dL (3.5-5.0); Alkaline Phosphatase 137 U/L (38-126); Aspartate Aminotransferase 65 IU/L (17-59); BUN Creatinine Ratio 6.4 (6-22); Bilirubin Total 3.6 mg/dL (0.2-1.3); Blood Urea Nitrogen 5 mg/dL (9-20); Calcium 8.5 mg/dL (8.4-10.2); Carbon Dioxide 24 mmol/L (22-32); Chloride 102 mmol/L (98-107); Estimated Glomerular Filt Rate > 60 mL/min (>60); Globulin 3.6 g/dL (1.7-4.1); Glucose 121 mg/dL (70-99); HEMOLYSIS < 15 (0-50); Potassium 3.7 mmol/L (3.4-5.1); Sodium 134 mmol/L (137-145); Total Protein 7.2 g/dL (6.3-8.2)
[2025-04-26 05:07] LABS: Add Manual Diff / Slide Review NO; Basophils Absolute Auto 0 /uL (0-100); Basophils Percent Auto 0.2 % (0-2); Eosinophils Absolute Auto 200 /uL (0-450); Eosinophils Percent Auto 3.3 % (2-4); Hematocrit 27.6 % (41-53); Hemoglobin 9.3 g/dL (13.5-17.5); Lymphocytes Absolute Auto 700 /uL (1100-4500); Lymphocytes Percent Auto 14.7 % (25-40); Mean Corpuscular HGB Conc 33.6 % (30-36); Mean Corpuscular Hemoglobin 26.7 PG (26-34); Mean Corpuscular Volume 79.5 fL (80-100); Monocytes Absolute Auto 400 /uL (0-900); Monocytes Percent Auto 8.7 % (3-14); Neutrophils Absolute Auto 3400 /uL (1500-7000); Neutrophils Percent Auto 73.1 % (50-75); Red Blood Cell Count 3.47 X10^6/uL (4.5-5.9); Red Cell Distribution Width 18.1 % (11.6-14.8); White Blood Cell Count 4.7 X10^3/uL (4.5-11.0)
[2025-04-26 05:13] LABS: Platelet Count 26 X10^3/uL (150-400)
[2025-04-26] MEDS: OXYCODONE IR 5 MG TABLET PO ×2 (05:17→15:59)
[2025-04-26 05:35] LABS: Anisocytosis 1+; Microcytosis 1+; Platelet Estimate Decreased on smear
--- NOTE | 2025-04-26 08:22 | PM.PN.1 ---
Subjective Subjective Interval history: S: Increased CIWA scores over night. Exam Vital Signs (past 8 hours): - 04/26/25 01:00 04/26/25 01:00 04/26/25 01:08 Pulse Rate 96 H 96 H Respiratory Rate 16 17 Blood Pressure 115/68 115/68 Pulse Oximetry 96 04/26/25 02:00 04/26/25 02:00 04/26/25 03:00 Pulse Rate 90 Respiratory Rate 17 Blood Pressure 108/52 L 117/67 Pulse Oximetry 99 04/26/25 03:00 04/26/25 04:00 04/26/25 04:01 Pulse Rate 86 94 H 97 H Respiratory Rate 18 28 H 21 Blood Pressure Pulse Oximetry 98 100 100 04/26/25 04:01 04/26/25 05:00 04/26/25 05:28 Pulse Rate 95 H 93 H Respiratory Rate 21 14 Blood Pressure 117/58 L 128/76 Pulse Oximetry 99 100 04/26/25 05:28 04/26/25 05:28 04/26/25 06:00 Pulse Rate 95 H Respiratory Rate 18 Blood Pressure 128/76 128/63 Pulse Oximetry 100 04/26/25 06:00 Pulse Rate 94 H Respiratory Rate Blood Pressure Pulse Oximetry 97 Fraction of Inspired Oxygen 35 Oxygen Delivery Method Room Air Oxygen Flow Rate 0 Narrative Exam Narrative: NAD, alert and oriented. Slurred speech. Lungs are clear, normal rate and effort. Heart is regular, no murmur gallop or rub. Abdomen is soft, non distended. Extremities are free of edema. Objective Labs 04/26/25 04:00 04/26/25 04:00 Labs: Laboratory Results - last 24 hr 04/26/25 04:00 WBC 4.7 RBC 3.47 L Hgb 9.3 L Hct 27.6 L MCV 79.5 L MCH 26.7 MCHC 33.6 RDW 18.1 H Plt Count 26 L* Neut % (Auto) 73.1 Lymph % (Auto) 14.7 L [place] % (Auto) 8.7 Eos % (Auto) 3.3 Baso % (Auto) 0.2 Neut # (Auto) 3400 Lymph # (Auto) 700 L [place] # (Auto) 400 Eos # (Auto) 200 Baso # (Auto) 0 Platelet Estimate Decreased on smear RBC Morphology See below Anisocytosis 1+ H Microcytosis 1+ H Sodium 134 L Potassium 3.7 Chloride 102 Carbon Dioxide 24 BUN 5 L Creatinine 0.78 Estimated GFR > 60 BUN/Creatinine Ratio 6.4 Glucose 121 H Calcium 8.5 Magnesium 1.2 L Total Bilirubin 3.6 H AST 65 H ALT 24 Alkaline Phosphatase 137 H Total Protein 7.2 Albumin 3.6 Globulin 3.6 Albumin/Globulin Ratio 1.0 PFSH Medical History Hepatosplenomegaly Portal hypertension Hepatosplenomegaly Foot osteomyelitis, right Neuropathic foot ulcer Decreased libido Erectile dysfunction Alcohol abuse (~2017) Low back pain (Unknown) Polyneuropathy (Unknown) Acne (Unknown) Hypertension (2004) Essential hypertension (09/12/16) Surgical History H/O surgical amputation of finger Hx of cholecystectomy (2001) Family History Grandmother Mental health problem Grandfather Cancer Grandmother Cancer Mother History of back problems Father Amputation leg, bilat Social History household members: spouse and family Tobacco: How many years used: 1 Smokeless tobacco user: chewing tobacco (many, many years) alcohol intake: current substance use type: does not use Assessment & Plan Assessment & Plan narrative: 1. Alcohol intoxication with severe alcohol withdrawal and agitated delirium, active. 2. Suicidal ideation, resolved. 3. Normocytic anemia, stable. 4. Thrombocytopenia, active. Platelet count is down to 33 this morning. Again likely secondary to marrow suppression from alcohol use. 5. Hypernatremia, improved. 6. Hyperglycemia, stable. 7. Transaminitis, active. 8. Hypertension, stable. Await medication reconciliation. 9. History of ESBL E coli osteomyelitis of the right foot due to neuropathic ulcer, unclear status. Right ulcer has improved. PLAN: -Librium scheduled, increased to 50 mg Q6. -physical therapy assessment. -discharge planning. Time-Based Coding :: [TOTAL MINUTES] spent with patient and on the chart (including review of chart, obtaining history, exam, reviewing outside data, placing orders, documenting exam and treatment plan, and counseling patient) on [DATE].
[2025-04-26] MEDS: NICOTINE 21 MG PATCH TOP (09:11)
[2025-04-26] MEDS: PREGABALIN 75 MG CAPSULE PO ×3 (09:11→21:12)
[2025-04-26] MEDS: FUROSEMIDE 40 MG TABLET PO (09:11)
[2025-04-26] MEDS: THIAMINE 100 MG TABLET PO (09:11)
[2025-04-26] MEDS: FOLIC ACID 1 MG TABLET PO (09:11)
[2025-04-26] MEDS: MULTIVITAMIN 1 TABLET 1 TAB PO (09:11)
[2025-04-26] MEDS: SPIRONOLACTONE 25 MG TABLET PO (09:11)
[2025-04-26] MEDS: MAGNESIUM SULFATE 2 GM/50 ML PIGGYBACK IV (09:12)
[2025-04-26] MEDS: PANTOPRAZOLE DR 40 MG TABLET PO (09:13)
[2025-04-26] MEDS: LORazepam 1 MG TABLET PO ×2 (11:04→15:56)
[2025-04-26] MEDS: diazePAM 10 MG/2 ML SYRINGE IV ×2 (12:36→22:16)
[2025-04-26] MEDS: chlordiazePOXIDE 25 MG CAPSULE 50 MG PO ×2 (13:11→18:01)
--- NOTE | 2025-04-26 14:40 | PT.IPTN ---
Current Diagnoses Alcohol dependence with withdrawal delirium (04/23/25) Physical Therapy Treatment Note M2 PT-IP Current Condition Start: 04/25/25 12:09 Freq: NEEDED Status: Active Protocol: Document 04/25/25 12:10 MB (Rec: 04/25/25 12:49 MB Desktop) Physical Therapy Current Condition Current Condition Evaluation Date 04/25/25 Treatment Diagnosis SI M3 PT-IP Subjective Start: 04/25/25 12:09 Freq: NEEDED Status: Active Protocol: Document 04/26/25 14:40 AB (Rec: 04/26/25 16:22 AB [id number]) Subjective Physical Therapy Visit Type Type Treatment Note Visit Start Time 14:40 Visit Stop Time 15:00 Number of LATENT FINGERPRINT EXAMINER Visits 0 Physical Therapy Visit Comments Patient Comments agreed to do PT M4 PT-IP Mobility and Gait Start: 04/25/25 12:09 Freq: NEEDED Status: Active Protocol: Document 04/26/25 14:40 AB (Rec: 04/26/25 16:22 AB [id number]) PT-Bed Mobility Assessment Sit to Supine Sit to Supine Minimal Assistance,1 Person Assistance,Head of Bed Elevated PT-Transfer Assessment Sit to and From Stand Sit to and from Stand Contact Guard Assistance,1 Person Assistance,Use of Upper Extremities Equipment Transfer Assistive Device Gait Belt,Front Wheeled Walker Orthotic/Prosthetic Devices or Brace: No Transfers Transfer Destination Bed,Toilet Transfer Technique ambulated Transfer Ability Level of Assist Minimal Assistance,1 Person Assistance,Use of Upper Extremities Comments Mobility Comments pt sitting on a w/c and requested to use the toilet. sit to stand from the w/c CGA. (+) overall body tremors. ambulated to the toilet using FWW min A and cues for safety. presents with unsteady ataxic gait with wide SHYAM and shuffling gait. sit to stand from the toilet CGA using grab bar for support and pt ambulated to the sink using FWW min A and cues. able to maintain standing using FWW CGA while completing handwashing. pt requested to go back to bed and ambulated to the bed using FWW min A. refused further ambulation. completed sit to supine min A and cues. positioned pt in bed. call light and table placed next to pt. Gait Assessment Gait Gait Assistance Required: Minimum Assistance Distance (Feet) 20 Able to Maintain Weight Bearing Status Yes During Gait Assistive Devices Assistive Device Gait Belt,Front Wheeled Walker Orthotic/Prosthetic Devices or Brace: No Gait Deviations General Gait Pattern Ataxic,Decreased Stride Length ,Decreased Feet Clearance,Step -to Gait,Wide Based Gait Factors Limiting Gait Function Factors Limiting Gait Function Decreased Activity Tolerance, Decreased Strength,Limited Range of Motion,Pain,Poor Balance,Poor Safety Awareness M5 PT-IP Objective Assessments Start: 04/25/25 12:09 Freq: NEEDED Status: Active Protocol: Document 04/25/25 12:10 MB (Rec: 04/25/25 12:49 MB Desktop) Orientation Orientation/Cognition Level of Alertness Alert Orientation Name,Age,Birthday,Month,Date, Year,Place,Situation Language Function Ability No Deficits Noted Safety Awareness Decreased Safety Awareness Memory Description No Deficits Noted Gross Range of Motion Upper Extremity ROM Impairments Defer to OT Lower Extremity ROM Assessment Bilaterally Impaired Impairments R foot is swollen, B LEs appear to have cellulitis, multiple skin wounds, limited B ankle movement Strength Lower Extremity Strength Assessment Bilaterally Impaired Comments Strength Comments Did not MMT given skin issues and LEs are functional Coordination Assessment Gross Coordination Gross Coordination Impaired Sensation Assessment Sensation Gross Sensation Right LE Impaired,Left LE Impaired M6 PT-IP Treatment Start: 04/25/25 12:09 Freq: NEEDED Status: Active Protocol: Document 04/26/25 14:40 AB (Rec: 04/26/25 16:22 AB [id number]) Physical Therapy Treatment Education Education Provided Safety M7 PT-IP Assessment and Plan Start: 04/25/25 12:09 Freq: NEEDED Status: Active Protocol: Document 04/26/25 14:40 AB (Rec: 04/26/25 16:22 AB [id number]) PT Summary Assessment and Plan Potential Rehabilitation Potential Fair Summary Impairments Pain,ROM,Strength,Balance, Coordination,Sensation,Tone, Cognition,Bed Mobility, Transfers,Gait,Activity Tolerance Progress Towards Goals Slow Progress due to Medical Issues,Slow Progress due to Activity Tolerance Assessment Summary pt requiring CGA to min A with mobilities using FWW and presents with (+) tremors, unsteady shuffling gait and cues for safety. pt lives with his spouse and mother-in- law but both are also in the hospital. pt will require assistance and will benefit from SNF rehab to improve overall strength and mobility. Goals Bed Mobility Goal Independent Transfer Goal Independent,Front Wheeled Walker,Four Wheeled Walker Gait Goal Independent,Front Wheel Walker ,Four Wheel Walker Gait Distance 75 Other Goals Recommend limiting gait distance to functional distances as needed given foot wounds Pt will ascend and descend 4 steps with left rail to allow safe home entrance. Days to Meet Goals 5 Frequency of Treatment Frequency Of Treatment Once a Day Treatment Plan Physical Therapy Treatment Plan Bed Mobility Training,Transfer Training,Gait Training, Therapeutic Exercise,Balance Retraining,Discharge Planning, Neuromuscular Re-ed, Coordination Retraining Recommendations To Nursing Amount of Assist Needed 1 Person Assist Discharge Recommendations Other Discharge Recommendations SNF vs inpt ETOH rehab Transportation Needs at Discharge Private Vehicle - PT assist 1
[2025-04-26] MEDS: SODIUM CHLORIDE 0.9% 1,000 ML 1000 ML IV (17:12)
--- NOTE | 2025-04-26 18:41 | PC.NURSE ---
Day Shift Note Patient alert and oriented, intermittently anxious and forgetful. CIWA 2-15 this shift, librium increased (see emar) and prn Valium/PO Ativan per emar. 1 person assist with FWW, slightly unsteady on feet. Buttock skin intact, pt declined application of mepilex prophylactic dressing despite education on padding bony prominences, repositioning independently in bed. HR up to the 130s this afternoon despite prn ciwa medications, 1L NS given per MD order with no change noted in HR. Dr. George updated and no further orders at this time. Pt denies chest pain or shortness of breath. Erythema to BLEs, band-aid applied to bleeding abrasion to head, pt reported he picks his scab. Call light within reach, using appropriately to make needs known. Bed alarm on.
[2025-04-26] MEDS: HYDROMORPHONE 0.5 MG INJ IV (23:46)
[2025-04-27] VITALS (9 sets, daily range): BP systolic 134–155; BP diastolic 63–87; PULSE 85–124; RESP 16–18; TEMP 37–37.6; O2SAT 95–100
[2025-04-27] MEDS: chlordiazePOXIDE 25 MG CAPSULE 50 MG PO ×4 (01:28→18:41)
[2025-04-27] MEDS: PANTOPRAZOLE DR 40 MG TABLET PO (06:31)
--- NOTE | 2025-04-27 07:37 | PM.PN.1 ---
Subjective Subjective Interval history: Summary: 49 male with alcohol withdrawal. He has a history of severe alcohol use disorder with a recurrent admissions. He also has a subacute foot infection and foot ulcers. This issue has been relatively quiescent during this admission. He was not recently been on antibiotics for this. S: He feels weak and a little shaky. Denies hallucinations, or diarrhea. He was very sleepy. Exam Vital Signs (past 8 hours): - 04/27/25 04:00 Temperature 99.7 F H Pulse Rate 115 H Respiratory Rate 18 Blood Pressure 155/67 H Pulse Oximetry 100 Oxygen Flow Rate 0 Fraction of Inspired Oxygen 35 Oxygen Delivery Method Room Air Oxygen Flow Rate 0 Narrative Exam Narrative: NAD, alert and oriented. Slurred speech. Unkempt. Lungs are clear, normal rate and effort. Heart is regular, no murmur gallop or rub. Abdomen is soft, non distended. Extremities are free of edema. Objective Labs 04/26/25 04:00 04/26/25 04:00 [facility] Medical History Hepatosplenomegaly Portal hypertension Hepatosplenomegaly Foot osteomyelitis, right Neuropathic foot ulcer Decreased libido Erectile dysfunction Alcohol abuse (~2017) Low back pain (Unknown) Polyneuropathy (Unknown) Acne (Unknown) Hypertension (2004) Essential hypertension (09/12/16) Surgical History H/O surgical amputation of finger Hx of cholecystectomy (2001) Family History Grandmother Mental health problem Grandfather Cancer Grandmother Cancer Mother History of back problems Father Amputation leg, bilat Social History household members: spouse and family Tobacco: How many years used: 1 Smokeless tobacco user: chewing tobacco (many, many years) alcohol intake: current substance use type: does not use Assessment & Plan Assessment & Plan narrative: 1. Alcohol intoxication with severe alcohol withdrawal and agitated delirium, active. 2. Suicidal ideation, resolved. 3. Normocytic anemia, stable. 4. Thrombocytopenia, active. Platelet count is down to 33 this morning. Again likely secondary to marrow suppression from alcohol use. 5. Hypernatremia, improved. 6. Hyperglycemia, stable. 7. Transaminitis, active. 8. Hypertension, stable. Await medication reconciliation. 9. History of ESBL E coli osteomyelitis of the right foot due to neuropathic ulcer, unclear status. Right ulcer has improved. PLAN: -Librium scheduled, increased to 50 mg Q6. -CIWA. -physical therapy assessment. -discharge planning. The plan from discharge planning is a voluntary inpatient rehabilitation encounter. They are considering an involuntary mechanism such as Storm's law if he was not willing to participate. Time-Based Coding :: [TOTAL MINUTES] spent with patient and on the chart (including review of chart, obtaining history, exam, reviewing outside data, placing orders, documenting exam and treatment plan, and counseling patient) on [DATE].
[2025-04-27] MEDS: MULTIVITAMIN 1 TABLET 1 TAB PO (08:38)
[2025-04-27] MEDS: PREGABALIN 75 MG CAPSULE PO ×3 (08:39→20:52)
[2025-04-27] MEDS: SPIRONOLACTONE 25 MG TABLET PO (08:39)
[2025-04-27] MEDS: FOLIC ACID 1 MG TABLET PO (08:39)
[2025-04-27] MEDS: LACTULOSE 20 GM/30 ML SOLUTION PO ×3 (08:39→20:51)
[2025-04-27] MEDS: THIAMINE 100 MG TABLET PO (08:39)
[2025-04-27] MEDS: FUROSEMIDE 40 MG TABLET PO (08:39)
[2025-04-27] MEDS: NICOTINE 21 MG PATCH TOP (08:40)
[2025-04-27] MEDS: HYDROMORPHONE 0.5 MG INJ IV ×3 (09:48→18:41)
[2025-04-27] MEDS: LORazepam 1 MG TABLET PO (11:45)
[2025-04-27] MEDS: DOXYCYCLINE HYCLATE 100 MG TABLET 50 MG PO ×2 (13:38→20:52)
--- NOTE | 2025-04-27 16:05 | OT.IP.TRT ---
Current Diagnoses Alcohol dependence with withdrawal delirium (04/23/25) Occupational Therapy Treatment Note M2 OT-IP Current Condition Start: 04/25/25 15:38 Freq: Status: Active Protocol: Document 04/25/25 15:39 CGR (Rec: 04/25/25 15:52 CGR Desktop) Occupational Therapy Current Condition Current Condition Evaluation Date 04/25/25 Treatment Diagnosis SI, ETOH Diagnosis Onset Date 04/23/25 M3 OT- IP Subjective and Pain Start: 04/25/25 15:38 Freq: Status: Active Protocol: Document 04/27/25 15:51 NAYELY (Rec: 04/27/25 16:05 MAYRAWIISIDRA Desktop) OT- Subjective Occupational Therapy Visit Type Type Treatment Note Visit Start Time 15:15 Visit Stop Time 15:45 Notes Pt sitting up in bed eating from tray on entrance of OT. Pt initially agreed to take a shower as part of his OT tx, but declined once OT gathered supplies. Pt did agree to participate in ADLs and reports he will take a shower tomorrow. OT Pain Assessment Pain Present Pain Present Denied Pain M4 OT- IP ADL's Start: 04/25/25 15:38 Freq: Status: Active Protocol: Document 04/27/25 15:51 NAYELY (Rec: 04/27/25 16:05 MAYRAWIISIDRA Desktop) OT [id number] General Evaluation Self-Feeding Ability Independent Comments OT Self-Feeding Comments Pt eating and drink from tray on entrance of OT OT ADL-Grooming Comments OT Grooming Comments not observed OT ADL-Oral Care Comments Oral Care Comments not observed OT ADL-Dressing General Eval Upper Body Dressing Ability Contact Guard Assistance Lower Body Dressing Ability Minimal Assistance Areas Needing Assistance Underpants/Brief,Socks Comments OT Dressing Comments Pt pulled up his socks prior to amb while long sitting in bed. Pt needed assist to finish pulling up R sock. Pt refused to done surgical boots stating they are disgusting I'm not putting them on. Pt started a new pair of briefs after performing a sponge bath while on the commode. Pt required min A to start on both feet due to the height of the commode. Pt was able to pull them up over his hips in standing with vcs only to initiate the task. Pt donned gown with assist to snap and tie only. OT ADL-Toileting Comments OT Toileting Comments Pt urinated while sitting on toilet seat OT ADL-Bathing Bathing Type Bathing Type Sponge Bath General Evaluation Bathing Ability Standby Assistance Areas Needing Assistance Retrieving/Setting Up Items Comments OT Bathing Comments Pt refused a shower today. He agreed to perform a sponge bath while sitting on the commode, however, due to c/o being cold and tired, pt was selective in his washing. Pt washed his amanda area, buttocks , B upper legs, and B lower legs while seated. Pt declined to remove his socks and wash his feet or to wash UB. Pt reports I had a good shower the other day. I will take one tomorrow. M7 OT- IP Mobility and Balance Start: 04/25/25 15:38 Freq: Status: Active Protocol: Document 04/27/25 15:51 MAYRAWIISIDRA (Rec: 04/27/25 16:05 MAYRAWIISIDRA Desktop) OT- Bed Mobility Assessment Supine to Sit Supine to Sit Assist Independent Sit to Supine Sit to Supine Assist Minimal Assistance,1 Person Assistance Scooting Scooting to Edge of Bed Independent Scooting Up and Down in Bed Independent OT-Transfer Assessment Sit to and From Stand Sit to and from Stand Standby Assistance Transfers Transfer Ability Contact Guard Assistance Technique Transfer Destination Bed,Toilet Transfer Technique Stand Step Pivot Devices Transfer Assistive Devices Gait Belt,Front Wheeled Walker Comments Mobility Comments Mobility from bed to toilet and then toward sink before deciding he was too tired and needed to return to bed. Pt required vcs to stay within his walker as well as OT to move the walker for him. Pt required cues from OT to take steps toward desired surface as well. OT- Gait Assessment Gait Gait Assistance Required: Minimum Assistance,1 Person Assist Distance (Feet) 20 Comments Gait Ability Comments Pt requires vcs to stay in his walker and up to min A to control walker. Pt requires vcs for safety awareness. OT- Balance Assessment Sitting Balance and Reactions Static Sitting Balance Ability Normal Dynamic Sitting Balance Ability Normal Standing Balance and Reactions Static Standing Balance Ability Fair Dynamic Standing Balance Ability Poor M8 OT- IP Objective Assessments Start: 04/25/25 15:38 Freq: Status: Active Protocol: Document 04/25/25 15:39 CGR (Rec: 04/25/25 15:52 CGR Desktop) OT Gross Range of Motion Upper Extremity Range of Motion Assessment Within Functional Limits OT Strength Upper Extremity Strength Assessment Within Functional Limits Comments Strength Comments grossly 4/5 OT- Coordination Assessment Upper Extremity Finger to Nose Test Within Functional Limits Finger Tapping Test Within Functional Limits OT-Muscle Tone Assessment Muscle Tone WNL Yes OT Sensation Assessment Edema Edema Absent M9 OT- IP Assessment and Plan Start: 04/25/25 15:38 Freq: Status: Active Protocol: Document 04/27/25 15:51 MAYRAWISILVANOOSCAR (Rec: 04/27/25 16:05 [facility] Desktop) OT Summary Assessment and Plan Potential Rehabilitation Potential Excellent Analytic Complexity at Evaluation Low Summary OT Impairments Balance,Functional Cognition, Functional Mobility,Grooming, Dressing,Toileting,Bathing, Toilet Transfers,Shower Transfers,Activity Tolerance Progress Towards Goals Progressing Toward Goals Assessment Summary Pt required encouragement to participate in ADLs with OT today. Pt initially agreed to take a shower, but refused once OT gathered supplies due to concerns of being too cold. Pt says he will take a shower tomorrow. Pt performed toileting and sponge bath. Pt required mod encouragement to perform sponge bath. Pt performs sponge bath with less I than he performed his shower on eval. Pt appears to have decreased activity tolerance today. Pt has decreased safety awareness especially with use of his walker when ambulating to bathroom. Pt left reclined in bed with bed exit alarm set, call light in reach, and all needs met. Cont per POC. Goals Dressing Goal Independent,Girl Friday,Sock Aid Toileting Goal Independent Bathing Goal Independent Toilet Transfer Goal Independent Shower Transfer Goal Independent Days to Meet Goals 3 Frequency of Treatment Other frequency 5x per week Treatment Plan OT Treatment Plan ADL Training,Functional Mobility,Patient/Family Education,Discharge Planning Other Treatment Recommendations and Next LB dressing and foot care. Treatment Focus Discharge Recommendations Other Discharge Recommendations inpatient ETOH rehab Transportation Needs at Discharge Private Vehicle
--- NOTE | 2025-04-27 17:50 | DI.CT.S_ITS ---
PROCEDURE: CT ANGIO CHEST PE PROTOCOL INDICATIONS: tachycardia TECHNIQUE: After the administration of intravenous contrast, 2 mm thick sections acquired from the pulmonary apices to the posterior costophrenic angles. 3-dimensional maximum intensity projection (MIP) coronal and sagittal reformats were then acquired through the thorax. For radiation dose reduction, the following was used: automated exposure control, adjustment of mA and/or kV according to patient size. COMPARISON: [facility], CR, XR CHEST 1V, 02/23/2025, 9:57. FINDINGS: Image quality: Diagnostic. Pulmonary arteries: Pulmonary arteries are normal in size, and demonstrate no intraluminal filling defects to suggest central pulmonary embolism. Lower Neck: No enlarged lymph nodes. Thyroid: No thyroid nodules which require sonographic follow up, per consensus guidelines. Axillae: No enlarged lymph nodes. Chest Wall: Unremarkable. Bones: No suspicious osseous lesion. Prior right-sided rib fractures. Lungs and Pleura: No pneumothorax or pleural effusions. No consolidation. Mosaic attenuation. No mass or significant pulmonary nodules. Right lower lobe calcified granuloma. Heart: Heart size is prominent. No pericardial effusion. Thoracic Vessels: No aortic aneurysm. Mediastinum and Heather: No enlarged lymph nodes. Esophagus: No wall thickening. No hiatal hernia. Upper Abdomen: Post cholecystectomy. Mild splenomegaly. Liver is prominent. Hepatic steatosis. IMPRESSION: 1. No central pulmonary embolism. 2. No significant acute airspace opacity. No pleural effusion. 3. Mild splenomegaly. Dictated by: Ej Lopez M.D. on 04/27/2025 at 18:34 Approved by: Ej Lopez M.D. on 04/27/2025 at 18:43
--- NOTE | 2025-04-27 18:22 | PT.IPTN ---
Current Diagnoses Alcohol dependence with withdrawal delirium (04/23/25) Physical Therapy Treatment Note M2 PT-IP Current Condition Start: 04/25/25 12:09 Freq: NEEDED Status: Active Protocol: Document 04/25/25 12:10 MB (Rec: 04/25/25 12:49 MB Desktop) Physical Therapy Current Condition Current Condition Evaluation Date 04/25/25 Treatment Diagnosis SI M3 PT-IP Subjective Start: 04/25/25 12:09 Freq: NEEDED Status: Active Protocol: Document 04/27/25 16:30 BL (Rec: 04/27/25 18:22 BL Laptop) Subjective Physical Therapy Visit Type Type Treatment Note Visit Start Time 15:55 Visit Stop Time 16:30 Physical Therapy Visit Comments Patient Comments Pt semi-de oliveira and agreeable to therapy session, following session pt semi-de oliveira in bed with call light and all needs met. bed alarm active at end of session. Therapy Pain Assessment Pain When Pain Assessed no report M4 PT-IP Mobility and Gait Start: 04/25/25 12:09 Freq: NEEDED Status: Active Protocol: Document 04/27/25 16:30 BL (Rec: 04/27/25 18:22 BL Laptop) PT-Bed Mobility Assessment Rolling Type of Rolling Roll to Right Level of Assist Standby Assistance,Contact Guard Assistance Supine to Sit Supine to Sit Contact Guard Assistance, Minimal Assistance Sit to Supine Sit to Supine Contact Guard Assistance, Minimal Assistance Scooting Scooting to Edge of Bed Contact Guard Assistance PT-Transfer Assessment Sit to and From Stand Sit to and from Stand Contact Guard Assistance, Minimal Assistance Equipment Transfer Assistive Device Gait Belt,Front Wheeled Walker Transfers Transfer Destination Bed,Wheelchair Transfer Technique Stand Pivot Transfer Ability Level of Assist Contact Guard Assistance, Minimal Assistance Comments Mobility Comments Pt requires verbal cues for rolling task to R side, increased time due to cognition. Requires Florecita to fully come to sitting EOB with use of bed rail. Pt requires Florecita to return to bed with LE. Pt requires Florecita for sit<> stand from bed, cues for hand placement. Pt is able to ambulate to doorway x 5' this date prior to requiring rest break due to fatigue this date . Pt completes 4x additional sit<>stands prior to ambulating back to bed, demos small step length with shuffling pattern. Gait Assessment Gait Gait Assistance Required: Minimum Assistance Assistive Devices Assistive Device Gait Belt,Front Wheeled Walker Gait Deviations General Gait Pattern Decreased Stride Length, Decreased Feet Clearance Factors Limiting Gait Function Factors Limiting Gait Function Difficulty Following Directions PT-Balance Assessment Sitting Balance and Reactions Static Sitting Balance Ability Good Dynamic Sitting Balance Ability Good Standing Balance and Reactions Static Standing Balance Ability Poor Dynamic Standing Balance Ability Poor M5 PT-IP Objective Assessments Start: 04/25/25 12:09 Freq: NEEDED Status: Active Protocol: Document 04/25/25 12:10 MB (Rec: 04/25/25 12:49 MB Desktop) Orientation Orientation/Cognition Level of Alertness Alert Orientation Name,Age,Birthday,Month,Date, Year,Place,Situation Language Function Ability No Deficits Noted Safety Awareness Decreased Safety Awareness Memory Description No Deficits Noted Gross Range of Motion Upper Extremity ROM Impairments Defer to OT Lower Extremity ROM Assessment Bilaterally Impaired Impairments R foot is swollen, B LEs appear to have cellulitis, multiple skin wounds, limited B ankle movement Strength Lower Extremity Strength Assessment Bilaterally Impaired Comments Strength Comments Did not MMT given skin issues and LEs are functional Coordination Assessment Gross Coordination Gross Coordination Impaired Sensation Assessment Sensation Gross Sensation Right LE Impaired,Left LE Impaired M6 PT-IP Treatment Start: 04/25/25 12:09 Freq: NEEDED Status: Active Protocol: Document 04/26/25 14:40 AB (Rec: 04/26/25 16:22 AB [id number]) Physical Therapy Treatment Education Education Provided Safety M7 PT-IP Assessment and Plan Start: 04/25/25 12:09 Freq: NEEDED Status: Active Protocol: Document 04/27/25 16:30 BL (Rec: 04/27/25 18:22 BL Laptop) PT Summary Assessment and Plan Summary Assessment Summary Pt demos improved mobility this date, Pt continues to fatigue quickly and requires increased time and heavy verbal and tactile cues to complete mobility tasks. Continue to recommend 24/7 assist at DC. Goals Bed Mobility Goal Independent Transfer Goal Independent,Front Wheeled Walker,Four Wheeled Walker Gait Goal Independent,Front Wheel Walker ,Four Wheel Walker Gait Distance 75 Other Goals Recommend limiting gait distance to functional distances as needed given foot wounds Pt will ascend and descend 4 steps with left rail to allow safe home entrance. Days to Meet Goals 5 Frequency of Treatment Frequency Of Treatment Once a Day Treatment Plan Physical Therapy Treatment Plan Bed Mobility Training,Transfer Training,Gait Training, Therapeutic Exercise,Balance Retraining,Discharge Planning, Neuromuscular Re-ed, Coordination Retraining Recommendations To Nursing Amount of Assist Needed 1 Person Assist Discharge Recommendations Other Discharge Recommendations SNF vs inpt ETOH rehab Transportation Needs at Discharge Private Vehicle - PT assist 1
[2025-04-27] MEDS: OXYCODONE IR 5 MG TABLET PO (20:52)
[2025-04-28] MEDS: chlordiazePOXIDE 25 MG CAPSULE 50 MG PO ×4 (02:00→21:00)
[2025-04-28 04:00] VITALS: BP 141/78; PULSE 118; RESP 16; TEMP 37.1; O2SAT 98
[2025-04-28] MEDS: OXYCODONE IR 5 MG TABLET PO ×3 (05:10→11:42)
[2025-04-28 05:23] LABS: Add Manual Diff / Slide Review NO; Basophils Absolute Auto 100 /uL (0-100); Basophils Percent Auto 0.9 % (0-2); Eosinophils Absolute Auto 300 /uL (0-450); Eosinophils Percent Auto 3.8 % (2-4); Hematocrit 29.9 % (41-53); Hemoglobin 10.2 g/dL (13.5-17.5); Lymphocytes Absolute Auto 1100 /uL (1100-4500); Lymphocytes Percent Auto 14.8 % (25-40); Mean Corpuscular HGB Conc 34.3 % (30-36); Mean Corpuscular Hemoglobin 27.5 PG (26-34); Mean Corpuscular Volume 80.3 fL (80-100); Monocytes Absolute Auto 1100 /uL (0-900); Monocytes Percent Auto 15.1 % (3-14); Neutrophils Absolute Auto 4900 /uL (1500-7000); Neutrophils Percent Auto 65.4 % (50-75); Platelet Count 40 X10^3/uL (150-400); Red Blood Cell Count 3.72 X10^6/uL (4.5-5.9); White Blood Cell Count 7.5 X10^3/uL (4.5-11.0)
[2025-04-28 05:30] LABS: BUN Creatinine Ratio 14.4 (6-22); Blood Urea Nitrogen 13 mg/dL (9-20); Calcium 8.9 mg/dL (8.4-10.2); Carbon Dioxide 23 mmol/L (22-32); Chloride 99 mmol/L (98-107); Estimated Glomerular Filt Rate > 60 mL/min (>60); Glucose 130 mg/dL (70-99); HEMOLYSIS < 15 (0-50); Magnesium 1.5 mg/dL (1.6-2.3); Potassium 3.5 mmol/L (3.4-5.1); Sodium 132 mmol/L (137-145)
--- NOTE | 2025-04-28 05:44 | PC.NURSE ---
CIWA 2 this shift, pt sleepy but rousable, answering questions slowly but appropriately. Denies n/v, endorses a sight increase in anxiety. Pt ambulates to bathroom 1 person assist with gait belt/FWW, weak and unsteady on feet, requiring significant cueing. Did not eat dinner, drank half an Ensure. Reports no appetite.
[2025-04-28] MEDS: PANTOPRAZOLE DR 40 MG TABLET PO (06:57)
[2025-04-28] MEDS: NICOTINE 21 MG PATCH TOP (08:31)
[2025-04-28] MEDS: FUROSEMIDE 40 MG TABLET PO (08:32)
[2025-04-28] MEDS: THIAMINE 100 MG TABLET PO (08:32)
[2025-04-28] MEDS: LACTULOSE 20 GM/30 ML SOLUTION PO ×3 (08:32→21:09)
[2025-04-28] MEDS: DOXYCYCLINE HYCLATE 100 MG TABLET 50 MG PO ×2 (08:32→21:08)
[2025-04-28] MEDS: MULTIVITAMIN 1 TABLET 1 TAB PO (08:36)
[2025-04-28] MEDS: SPIRONOLACTONE 25 MG TABLET PO (08:36)
[2025-04-28] MEDS: FOLIC ACID 1 MG TABLET PO (08:36)
[2025-04-28] MEDS: PREGABALIN 75 MG CAPSULE PO ×3 (08:36→21:09)
--- NOTE | 2025-04-28 10:35 | CM.DPC ---
Late Entry: Visit 04/27/25 DCP Cont. Reviewed EMR and team rounds for status updates. Met with pt at bedside to discuss inpt [facility] tx as the recommendation for his continued care at time of hospital discharge. Discussed the continued hx of multiple hospitalizations, inability to care for himself or his family, and now the home being unlivable with no running water. He was agreeable to inpt [facility] referrals for local tx centers. Pt is still on high doses of Librium, and is using a walker/unsteady on his feet, so is not yet ready for planning discharge at this time. Will send referrals on Friday, pending improvement.
--- NOTE | 2025-04-28 11:30 | PT.IPTN ---
Current Diagnoses Alcohol dependence with withdrawal delirium (04/23/25) Physical Therapy Treatment Note M2 PT-IP Current Condition Start: 04/25/25 12:09 Freq: NEEDED Status: Active Protocol: Document 04/25/25 12:10 MB (Rec: 04/25/25 12:49 MB Desktop) Physical Therapy Current Condition Current Condition Evaluation Date 04/25/25 Treatment Diagnosis SI M3 PT-IP Subjective Start: 04/25/25 12:09 Freq: NEEDED Status: Active Protocol: Document 04/28/25 11:30 DLM (Rec: 04/28/25 13:01 DLM Desktop) Subjective Physical Therapy Visit Type Type Treatment Note Visit Start Time 11:00 Visit Stop Time 11:30 Notes 30 minutes Number of SUPERVISOR [employer] SUGAR Visits 0 Physical Therapy Visit Comments Patient Comments He can borrow a FWW from family member (FWW or 4WW). He does not want to wear the post-op shoes with complaints that they stink. Patient Goals walk better M4 PT-IP Mobility and Gait Start: 04/25/25 12:09 Freq: NEEDED Status: Active Protocol: Document 04/28/25 11:30 DLM (Rec: 04/28/25 13:01 DLM Desktop) PT-Bed Mobility Assessment Supine to Sit Supine to Sit Minimal Assistance Sit to Supine Sit to Supine Minimal Assistance Scooting Scooting to Edge of Bed Standby Assistance PT-Transfer Assessment Sit to and From Stand Sit to and from Stand Minimal Assistance,Use of Upper Extremities Equipment Transfer Assistive Device Gait Belt,Front Wheeled Walker Transfers Transfer Destination Bed Transfer Technique Stand Step Pivot Transfer Ability Level of Assist Minimal Assistance,Use of Upper Extremities Comments Mobility Comments He shows good weight bearing on LE's but has a lot of difficulty moving his feet to take functional steps with right worse than left. He has a very wide base of support and tends to keep the FWW too far away from his body. He tried to sit before fully backing up to the bed. All mobility is very slow this visit. Sitting balance training on edge of bed. Pt has losses of balance with weight shifts to right side. He is able to cross ankle over opposite knee with difficulty and has losses of balance. Gait Assessment Gait Gait Assistance Required: Minimum Assistance,Moderate Assistance Distance (Feet) 10 Assistive Devices Assistive Device Gait Belt,Front Wheeled Walker Gait Deviations General Gait Pattern Ataxic,Decreased Stride Length ,Decreased Feet Clearance,Wide Based Gait Factors Limiting Gait Function Factors Limiting Gait Function Decreased Activity Tolerance, Incoordination,Poor Balance Comments Gait Comments His pace of gait is very slow. He needs assist to manage the FWW and frequent cuing to stay close to the FWW. He has difficulty litfing his feet to take functional steps with right worse than left. Stair Climbing Assessment Comments Stair Climbing Comments not safe to advance to stair training yet, has stairs to enter his home PT-Balance Assessment Sitting Balance and Reactions Static Sitting Balance Ability Good Dynamic Sitting Balance Ability Fair Standing Balance and Reactions Static Standing Balance Ability Fair Dynamic Standing Balance Ability Fair Device Used FWW Comments Other Balance Tests/Deviations/Treatment lateral losses of balance in : sitting with weight shifts, bradykinetic with all movements M5 PT-IP Objective Assessments Start: 04/25/25 12:09 Freq: NEEDED Status: Active Protocol: Document 04/25/25 12:10 MB (Rec: 04/25/25 12:49 MB Desktop) Orientation Orientation/Cognition Level of Alertness Alert Orientation Name,Age,Birthday,Month,Date, Year,Place,Situation Language Function Ability No Deficits Noted Safety Awareness Decreased Safety Awareness Memory Description No Deficits Noted Gross Range of Motion Upper Extremity ROM Impairments Defer to OT Lower Extremity ROM Assessment Bilaterally Impaired Impairments R foot is swollen, B LEs appear to have cellulitis, multiple skin wounds, limited B ankle movement Strength Lower Extremity Strength Assessment Bilaterally Impaired Comments Strength Comments Did not MMT given skin issues and LEs are functional Coordination Assessment Gross Coordination Gross Coordination Impaired Sensation Assessment Sensation Gross Sensation Right LE Impaired,Left LE Impaired M6 PT-IP Treatment Start: 04/25/25 12:09 Freq: NEEDED Status: Active Protocol: Document 04/28/25 11:30 DLM (Rec: 04/28/25 13:01 DLM Desktop) Physical Therapy Treatment Education Education Provided Safety Other Treatments Other Treatment Performed balance and coordination training this visit M7 PT-IP Assessment and Plan Start: 04/25/25 12:09 Freq: NEEDED Status: Active Protocol: Document 04/28/25 11:30 DLM (Rec: 04/28/25 13:01 DLM Desktop) PT Summary Assessment and Plan Potential Status of Condition at Evaluation Evolving Summary Impairments Pain,ROM,Strength,Balance, Coordination,Sensation,Tone, Cognition,Bed Mobility, Transfers,Gait,Activity Tolerance Progress Towards Goals Slow Progress due to Medical Issues Assessment Summary Jon is slow to wake up this visit. He shows good participation in therapy treatment. He is pleasant and joking. He is very bradykinetic today which effects all of his movements and mobility. He has difficulty lifting his feet to take functional steps for gait and transfers even with the FWW. He refused to wear his post-op shoes because they are not clean. Will need clarification from medical team on the plan for his foot wounds and if he needs new post-op shoes. Discussed this with his nurse. He is not safe to discharge home at this time. He has no assist at home and continues to be high fall risk. Recommend SNF rehab at this time to assist with returning to gait for functional distances. He may progress to out-pt ETOH rehab once his mobility/gait improves. Goals Bed Mobility Goal Independent Transfer Goal Independent,Front Wheeled Walker,Four Wheeled Walker Gait Goal Independent,Front Wheel Walker ,Four Wheel Walker Gait Distance 75 Other Goals Pt will ascend and descend 4 steps with left rail to allow safe home entrance. Days to Meet Goals 5 Frequency of Treatment Frequency Of Treatment Once a Day Treatment Plan Physical Therapy Treatment Plan Bed Mobility Training,Transfer Training,Gait Training, Therapeutic Exercise,Balance Retraining,Discharge Planning, Neuromuscular Re-ed, Coordination Retraining Other Recommendations and Next Treatment Recommend limiting gait Focus distance to functional distances as needed given foot wounds Precautions Other Precautions fall risk Recommendations To Nursing Amount of Assist Needed 1 Person Assist Discharge Recommendations PT Discharge Recommendations SNF Rehab Other Discharge Recommendations SNF vs inpt ETOH rehab Transportation Needs at Discharge Private Vehicle - PT assist 1
[2025-04-28] MEDS: MAGNESIUM CHLORIDE 64 MG TABLET 128 MG PO (11:32)
[2025-04-28] MEDS: POTASSIUM CHLORIDE 20 MEQ TAB 40 MEQ PO (11:42)
[2025-04-28 12:00] VITALS: BP 131/72; PULSE 107; RESP 18; TEMP 36.7; O2SAT 100
--- NOTE | 2025-04-28 13:16 | PC.NURSE ---
During med pass, pt coughed and reported water going down the wrong pipe when swallowing pills with H2O. Pt sitting upright, A&Ox4. Asked pt if he would like to take pills in thicker liquid, pt replied that he has been aspirating when he drinks water at home. This RN did not observe any aspiration or coughing with just water. Entered orders per protocol for speech therapy eval.
--- NOTE | 2025-04-28 13:52 | SLP.IPNOTE ---
Chart reviewed and RN consulted. RN reported pt coughing with larger pill, though not with smaller ones (with liquid wash). Pt declined use of puree carrier. No other overt s/sx of aspiration have been noted with PO intake since admission. Pt did express to RN that he has been aspirating when he drinks water at home. Upon BATCH OR CONTINUOUS STILL OPERATOR arrival, social work entering room to have extensive discussion with pt. Given BATCH OR CONTINUOUS STILL OPERATOR schedule, clinical swallow evaluation held. Will continue to follow up.
--- NOTE | 2025-04-28 16:29 | OT.IP.TRT ---
Current Diagnoses Alcohol dependence with withdrawal delirium (04/23/25) Occupational Therapy Treatment Note M2 OT-IP Current Condition Start: 04/25/25 15:38 Freq: Status: Active Protocol: Document 04/25/25 15:39 CGR (Rec: 04/25/25 15:52 CGR Desktop) Occupational Therapy Current Condition Current Condition Evaluation Date 04/25/25 Treatment Diagnosis SI, ETOH Diagnosis Onset Date 04/23/25 M3 OT- IP Subjective and Pain Start: 04/25/25 15:38 Freq: Status: Active Protocol: Document 04/28/25 14:28 NAYELY (Rec: 04/28/25 15:04 MAYRANEISIDRA Desktop) OT- Subjective Occupational Therapy Visit Type Type Treatment Note Visit Start Time 12:40 Visit Stop Time 13:46 Notes Pt reclined in bed sleeping with his lunch before him on entrance of OT. Pt woke easily and was agreeable to participating in OT specifically for a shower prior to eating his lunch. Occupational Therapy Visit Comments Patient Comments I've been very sleepy. OT Pain Assessment Pain Present Pain Present Denied Pain M4 OT- IP ADL's Start: 04/25/25 15:38 Freq: Status: Active Protocol: Document 04/28/25 14:28 NAYELY (Rec: 04/28/25 15:04 MAYRANEISIDRA Desktop) OT [id number] Comments OT Self-Feeding Comments Pt asked to eat his slovenian ice cup prior to taking his shower. Pt fell asleep while opening the top and need min A to open as well as vcs to stay awake while finishing to eat. OT ADL-Grooming Comments OT Grooming Comments not observed OT ADL-Oral Care Comments Oral Care Comments not observed OT ADL-Dressing General Eval Upper Body Dressing Ability Standby Assistance Lower Body Dressing Ability Minimal Assistance Areas Needing Assistance Underpants/Brief,Socks Comments OT Dressing Comments Pt doffed socks I'ly and brief with SBA (when standing for balance). Pt doffed gown I'ly . Following shower, pt needed assistance with snapping and tying gown. Pt was able to start brief on R foot but got L big toe caught in the leg hole and was unable to problem solve a solution, requiring OT to finishing threading L LE into leg hole. Pt was able to pull up to his thighs and required min A to pull up over his hips when standing as pt was leaning posteriorly and having a difficult time maintaining his balance. OT ADL-Toileting General Evaluation Toileting Ability Independent Comments OT Toileting Comments Pt urinated while sitting on toilet seat OT ADL-Bathing Bathing Type Bathing Type Shower General Evaluation Bathing Ability Standby Assistance Areas Needing Assistance Retrieving/Setting Up Items Comments OT Bathing Comments Pt performed all aspects of his shower without physical assistance. Pt primarily bathed while seated on shower chair. A few times pt fell asleep while bathing and need OT to wake him to continue. Pt stood for buttock care. M7 OT- IP Mobility and Balance Start: 04/25/25 15:38 Freq: Status: Active Protocol: Document 04/28/25 14:28 NAYELY (Rec: 04/28/25 15:04 [facility] Desktop) OT- Bed Mobility Assessment Supine to Sit Supine to Sit Assist Independent Scooting Scooting to Edge of Bed Independent Scooting Up and Down in Bed Independent OT-Transfer Assessment Sit to and From Stand Sit to and from Stand Standby Assistance,Use of Upper Extremities Transfers Transfer Ability Minimal Assistance,Use of Upper Extremities Technique Transfer Destination Bed,Chair,Shower Stall,Toilet Transfer Technique Stand Step Pivot Devices Transfer Assistive Devices Gait Belt,Front Wheeled Walker Comments Mobility Comments Mobility from bed to toilet then into shower. He returned to chair at end of session. OT- Gait Assessment Gait Gait Assistance Required: Minimum Assistance,Moderate Assistance Distance (Feet) 10 Comments Gait Ability Comments On walk into bathroom pt was SBA; however, after shower, pt required up to min A. Pt needed assist to advance walker, cues to stay within walker, and cues for safety with respect to positioning prior to sitting. OT- Balance Assessment Sitting Balance and Reactions Static Sitting Balance Ability Good Dynamic Sitting Balance Ability Fair Standing Balance and Reactions Static Standing Balance Ability Fair Dynamic Standing Balance Ability Fair Protocol: Document 04/28/25 14:28 NAYELY (Rec: 04/28/25 15:04 [facility] Desktop) OT Summary Assessment and Plan Potential Rehabilitation Potential Excellent Analytic Complexity at Evaluation Low Summary OT Impairments Balance,Functional Cognition, Functional Mobility,Grooming, Dressing,Toileting,Bathing, Toilet Transfers,Shower Transfers,Activity Tolerance Progress Towards Goals Progressing Toward Goals Assessment Summary Pt is pleasant and cooperative although lethargic today. Pt needed multiple cues to stay awake and alert. Pt was agreeable to shower and made multiple comments thanking OT for taking her time to assist pt with this. Pt has difficulty problem solving situations. Pt requires extra time and cues (verbal and tactile) for safety awareness during ambulation, functional t/fs, and BADL. Pt reports that he is performing his shower similarly to how he performs it at home and notes no difference in his ability. Pt may benefit from education on AE for LB dressing as pt has a difficult time starting brief and donning socks. OT to educate pt on AE options for LB dressing. Pt left up in chair with his lunch before him, tether alarm set, call light in reach and case mgmt present. Pt continues to be appropriate for skilled OT services cont per established POC. Goals Dressing Goal Independent,Director Of Strategic Marketing,Sock Aid Toileting Goal Independent Bathing Goal Independent Toilet Transfer Goal Independent Shower Transfer Goal Independent Days to Meet Goals 7 Frequency of Treatment Other frequency 5x per week Treatment Plan OT Treatment Plan ADL Training,Functional Mobility,Patient/Family Education,Discharge Planning Other Treatment Recommendations and Next LB dressing and foot care. Treatment Focus Discharge Recommendations Other Discharge Recommendations inpatient ETOH rehab Transportation Needs at Discharge Private Vehicle
--- NOTE | 2025-04-28 19:27 | PM.PN.1 ---
Subjective Subjective Interval history: Summary: 49 male with alcohol withdrawal. He has a history of severe alcohol use disorder with a recurrent admissions. He also has a subacute foot infection and foot ulcers. This issue has been relatively quiescent during this admission. He was not recently been on antibiotics for this. S: He feels weak and a little shaky. Denies hallucinations. He feels very sad today as his who was also admitted became very sick suddenly and was moved to the ICU. Exam Vital Signs (past 8 hours): - 04/28/25 12:00 Temperature 98.1 F Pulse Rate 107 H Respiratory Rate 18 Blood Pressure 131/72 Pulse Oximetry 100 Fraction of Inspired Oxygen 35 Oxygen Delivery Method Room Air Oxygen Flow Rate 0 Narrative Exam Narrative: NAD, alert and oriented. Slurred speech. Unkempt. Lungs are clear, normal rate and effort. Heart is regular, no murmur gallop or rub. Abdomen is soft, non distended. Extremities are free of edema. Objective Labs 04/28/25 04:50 04/28/25 04:50 Labs: Laboratory Results - last 24 hr 04/28/25 04:50 WBC 7.5 RBC 3.72 L Hgb 10.2 L Hct 29.9 L MCV 80.3 MCH 27.5 MCHC 34.3 RDW 19.0 H Plt Count 40 L Neut % (Auto) 65.4 Lymph % (Auto) 14.8 L [place] % (Auto) 15.1 H Eos % (Auto) 3.8 Baso % (Auto) 0.9 Neut # (Auto) 4900 Lymph # (Auto) 1100 [place] # (Auto) 1100 H Eos # (Auto) 300 Baso # (Auto) 100 Sodium 132 L Potassium 3.5 Chloride 99 Carbon Dioxide 23 BUN 13 Creatinine 0.90 Estimated GFR > 60 BUN/Creatinine Ratio 14.4 Glucose 130 H Calcium 8.9 Magnesium 1.5 L PFSH Medical History Hepatosplenomegaly Portal hypertension Hepatosplenomegaly Foot osteomyelitis, right Neuropathic foot ulcer Decreased libido Erectile dysfunction Alcohol abuse (~2017) Low back pain (Unknown) Polyneuropathy (Unknown) Acne (Unknown) Hypertension (2004) Essential hypertension (09/12/16) Surgical History H/O surgical amputation of finger Hx of cholecystectomy (2001) Family History Grandmother Mental health problem Grandfather Cancer Grandmother Cancer Mother History of back problems Father Amputation leg, bilat Social History household members: spouse and family Tobacco: How many years used: 1 Smokeless tobacco user: chewing tobacco (many, many years) alcohol intake: current substance use type: does not use Assessment & Plan Assessment & Plan narrative: 1. Alcohol intoxication with severe alcohol withdrawal and agitated delirium, active. 2. Suicidal ideation, resolved. 3. Normocytic anemia, stable. 4. Thrombocytopenia, active. Platelet count is down to 33 this morning. Again likely secondary to marrow suppression from alcohol use. 5. Hypernatremia, improved. 6. Hyperglycemia, stable. 7. Transaminitis, active. 8. Hypertension, stable. Await medication reconciliation. 9. History of ESBL E coli osteomyelitis of the right foot due to neuropathic ulcer, unclear status. Right ulcer has improved. 10. Hypomagnesemia PLAN: -Librium scheduled, continue current 50 q6, no changes today difficult to assess withdrawal with reactive depression to spouses sudden decompensation. -CIWA with prn valium. -PT -discharge planning ongoing. -replete and follow Mg as needed. Na stable 132 today. Time-Based Coding :: [TOTAL MINUTES] spent with patient and on the chart (including review of chart, obtaining history, exam, reviewing outside data, placing orders, documenting exam and treatment plan, and counseling patient) on [DATE].
[2025-04-28 20:00] VITALS: BP 129/81; PULSE 125; RESP 12; TEMP 36.9; O2SAT 100
[2025-04-29] MEDS: OXYCODONE IR 5 MG TABLET PO ×4 (01:13→15:19)
[2025-04-29] MEDS: chlordiazePOXIDE 25 MG CAPSULE 50 MG PO ×3 (01:13→20:05)
[2025-04-29 04:00] VITALS: BP 124/54; PULSE 125; RESP 20; TEMP 36.8; O2SAT 98
[2025-04-29 05:08] LABS: Add Manual Diff / Slide Review NO; Basophils Absolute Auto 0 /uL (0-100); Basophils Percent Auto 0.5 % (0-2); Eosinophils Absolute Auto 300 /uL (0-450); Eosinophils Percent Auto 4.7 % (2-4); Hematocrit 28.2 % (41-53); Hemoglobin 9.7 g/dL (13.5-17.5); Lymphocytes Absolute Auto 1300 /uL (1100-4500); Mean Corpuscular HGB Conc 34.4 % (30-36); Mean Corpuscular Hemoglobin 27.6 PG (26-34); Mean Corpuscular Volume 80.4 fL (80-100); Monocytes Absolute Auto 1300 /uL (0-900); Monocytes Percent Auto 19.1 % (3-14); Neutrophils Absolute Auto 4000 /uL (1500-7000); Neutrophils Percent Auto 56.7 % (50-75); Platelet Count 52 X10^3/uL (150-400); Red Blood Cell Count 3.51 X10^6/uL (4.5-5.9); Red Cell Distribution Width 19.1 % (11.6-14.8)
[2025-04-29 05:42] LABS: BUN Creatinine Ratio 20.7 (6-22); Blood Urea Nitrogen 19 mg/dL (9-20); Calcium 8.7 mg/dL (8.4-10.2); Carbon Dioxide 20 mmol/L (22-32); Chloride 101 mmol/L (98-107); Estimated Glomerular Filt Rate > 60 mL/min (>60); Glucose 107 mg/dL (70-99); HEMOLYSIS < 15 (0-50); Magnesium 1.5 mg/dL (1.6-2.3); Potassium 4.1 mmol/L (3.4-5.1); Sodium 131 mmol/L (137-145)
[2025-04-29] MEDS: PANTOPRAZOLE DR 40 MG TABLET PO (06:33)
[2025-04-29] MEDS: MULTIVITAMIN 1 TABLET 1 TAB PO (08:46)
[2025-04-29] MEDS: THIAMINE 100 MG TABLET PO (08:46)
[2025-04-29] MEDS: SPIRONOLACTONE 25 MG TABLET PO (08:47)
[2025-04-29] MEDS: PREGABALIN 75 MG CAPSULE PO ×3 (08:47→20:05)
[2025-04-29] MEDS: FOLIC ACID 1 MG TABLET PO (08:47)
[2025-04-29] MEDS: FUROSEMIDE 40 MG TABLET PO (08:47)
[2025-04-29] MEDS: DOXYCYCLINE HYCLATE 100 MG TABLET 50 MG PO ×2 (08:47→20:05)
[2025-04-29] MEDS: NICOTINE 21 MG PATCH TOP (08:47)
[2025-04-29] MEDS: LORazepam 1 MG TABLET PO (08:59)
[2025-04-29 09:59] VITALS: PULSE 110; RESP 16
--- NOTE | 2025-04-29 10:35 | PT.IPTN ---
Current Diagnoses Alcohol dependence with withdrawal delirium (04/23/25) Physical Therapy Treatment Note M2 PT-IP Current Condition Start: 04/25/25 12:09 Freq: NEEDED Status: Active Protocol: Document 04/25/25 12:10 MB (Rec: 04/25/25 12:49 MB Desktop) Physical Therapy Current Condition Current Condition Evaluation Date 04/25/25 Treatment Diagnosis SI M3 PT-IP Subjective Start: 04/25/25 12:09 Freq: NEEDED Status: Active Protocol: Document 04/29/25 10:35 AB (Rec: 04/29/25 13:16 AB [id number]) Subjective Physical Therapy Visit Type Type Treatment Note Visit Start Time 10:35 Visit Stop Time 11:00 Number of LIMOUSINE AND HEARSE UPHOLSTERER Visits 0 Physical Therapy Visit Comments Patient Comments agreeable to do PT M4 PT-IP Mobility and Gait Start: 04/25/25 12:09 Freq: NEEDED Status: Active Protocol: Document 04/29/25 10:35 AB (Rec: 04/29/25 13:16 AB [id number]) PT-Transfer Assessment Sit to and From Stand Sit to and from Stand Moderate Assistance,1 Person Assistance,Use of Upper Extremities Equipment Transfer Assistive Device Gait Belt,Front Wheeled Walker Orthotic/Prosthetic Devices or Brace: No Transfers Transfer Destination Toilet Transfer Technique ambulated Transfer Ability Level of Assist Moderate Assistance,Maximum Assistance,1 Person Assistance ,Use of Upper Extremities Comments Mobility Comments pt found sitting on EOB and trying to reach down to the floor. Assisted pt. pt slow to respond to questions and instructions. pt agreed to do PT. pt refused to use post-op shoes and stated that shoes needs to be thrown out. completed sit to stand from EOB mod A and max cues. presents with increase retro lean with initial standing and cues to push down on FWW for support. pt then requested to use the toilet. pt ambulated to the toilet using fWW requiring max A for turning and maneuvering FWW into the toilet. pt presents with side based shuffling gait and need max cues to not move FWW too far forward. pt requiring max A for standing balance while assisted with brief management . call light left next to pt. OT came in to work with pt. Gait Assessment Gait Gait Assistance Required: Moderate Assistance,Maximum Assistance Distance (Feet) 20 Able to Maintain Weight Bearing Status Yes During Gait Assistive Devices Assistive Device Gait Belt,Front Wheeled Walker Orthotic/Prosthetic Devices or Brace: No Gait Deviations General Gait Pattern Ataxic,Decreased Stride Length ,Decreased Feet Clearance,Step -to Gait,Wide Based Gait Factors Limiting Gait Function Factors Limiting Gait Function Decreased Activity Tolerance, Limited Range of Motion,Poor Balance,Poor Safety Awareness M5 PT-IP Objective Assessments Start: 04/25/25 12:09 Freq: NEEDED Status: Active Protocol: Document 04/25/25 12:10 MB (Rec: 04/25/25 12:49 MB Desktop) Orientation Orientation/Cognition Level of Alertness Alert Orientation Name,Age,Birthday,Month,Date, Year,Place,Situation Language Function Ability No Deficits Noted Safety Awareness Decreased Safety Awareness Memory Description No Deficits Noted Gross Range of Motion Upper Extremity ROM Impairments Defer to OT Lower Extremity ROM Assessment Bilaterally Impaired Impairments R foot is swollen, B LEs appear to have cellulitis, multiple skin wounds, limited B ankle movement Strength Lower Extremity Strength Assessment Bilaterally Impaired Comments Strength Comments Did not MMT given skin issues and LEs are functional Coordination Assessment Gross Coordination Gross Coordination Impaired Sensation Assessment Sensation Gross Sensation Right LE Impaired,Left LE Impaired M6 PT-IP Treatment Start: 04/25/25 12:09 Freq: NEEDED Status: Active Protocol: Document 04/29/25 10:35 AB (Rec: 04/29/25 13:16 AB [id number]) Physical Therapy Treatment Education Education Provided Safety M7 PT-IP Assessment and Plan Start: 04/25/25 12:09 Freq: NEEDED Status: Active Protocol: Document 04/29/25 10:35 AB (Rec: 04/29/25 13:16 AB [id number]) PT Summary Assessment and Plan Potential Rehabilitation Potential Fair Summary Impairments Pain,ROM,Strength,Balance, Coordination,Sensation,Tone, Cognition,Bed Mobility, Transfers,Gait,Activity Tolerance Progress Towards Goals Slow Progress due to Medical Issues,Slow Progress due to Activity Tolerance,Slow Progress - Other Assessment Summary pt requiring mod A to max A with ambulation using FWW and max cues with all tasks. pt will require 24/7 assist and will benefit from SNF rehab to improve overall mobility and independence. Goals Bed Mobility Goal Independent Transfer Goal Independent,Front Wheeled Walker,Four Wheeled Walker Gait Goal Independent,Front Wheel Walker ,Four Wheel Walker Gait Distance 75 Other Goals Pt will ascend and descend 4 steps with left rail to allow safe home entrance. Days to Meet Goals 5 Frequency of Treatment Frequency Of Treatment Once a Day Treatment Plan Physical Therapy Treatment Plan Bed Mobility Training,Transfer Training,Gait Training, Therapeutic Exercise,Balance Retraining,Discharge Planning, Neuromuscular Re-ed, Coordination Retraining Other Recommendations and Next Treatment Recommend limiting gait Focus distance to functional distances as needed given foot wounds Precautions Other Precautions fall Recommendations To Nursing Amount of Assist Needed 1 Person Assist Discharge Recommendations PT Discharge Recommendations SNF Rehab Transportation Needs at Discharge Private Vehicle - PT assist 1
--- NOTE | 2025-04-29 10:39 | CM.DPNOTE ---
DCP Continued: Reviewed EMR and team rounds for pt?s medical status. Per hospitalist, orders will be placed for patient to wean on librium dose today to help with cognition/decision making. Per PT/OT, Skilled Rehab still recommended before any NAA treatment due to patient weakness, cognition and utilizing FWW (DME could be a barrier to NAA inpatient placement). Plan: Anticipating SNF placement when medically cleared, referrals to be sent when pt more cognizant and decisional. CM Team will continue to follow for coordination of discharge plans. ANGELICA Tang
[2025-04-29] MEDS: MAGNESIUM CHLORIDE 64 MG TABLET 128 MG PO (11:41)
--- NOTE | 2025-04-29 12:40 | OT.IP.TRT ---
Current Diagnoses Alcohol dependence with withdrawal delirium (04/23/25) Occupational Therapy Treatment Note M2 OT-IP Current Condition Start: 04/25/25 15:38 Freq: Status: Active Protocol: Document 04/25/25 15:39 CGR (Rec: 04/25/25 15:52 CGR Desktop) Occupational Therapy Current Condition Current Condition Evaluation Date 04/25/25 Treatment Diagnosis SI, ETOH Diagnosis Onset Date 04/23/25 M3 OT- IP Subjective and Pain Start: 04/25/25 15:38 Freq: Status: Active Protocol: Document 04/29/25 12:22 NAYELY (Rec: 04/29/25 12:40 [facility] Desktop) OT- Subjective Occupational Therapy Visit Type Type Treatment Note Visit Start Time 10:58 Visit Stop Time 11:22 Notes Pt sitting on commode following PT session. Pt agreeable to participating in OT tx session. Occupational Therapy Visit Comments Patient Comments I'm a little wobbly Patient/Caregiver Goals to go home OT Pain Assessment Pain Present Pain Present Denied Pain M4 OT- IP ADL's Start: 04/25/25 15:38 Freq: Status: Active Protocol: Document 04/29/25 12:22 NAYELY (Rec: 04/29/25 12:40 MAYRAINISIDRA Desktop) OT [id number] Comments OT Self-Feeding Comments not observed OT ADL-Grooming General Evaluation Grooming Ability Contact Guard Assistance Comments OT Grooming Comments pt washes his hands sink side leaning heavily on counter to get hands under faucet. Pt needs assist getting soap. OT ADL-Oral Care General Eval Oral Care Ability Standby Assistance Comments Oral Care Comments pt is able to perform all aspects of oral hygiene. Pt initially leaning heavily on counter and needs vcs to stand tall while performing task. Pt is able to correct and leaves one hand on the counter . OT ADL-Dressing Comments OT Dressing Comments not observed OT ADL-Toileting General Evaluation Toileting Ability Standby Assistance Devices Toileting Assistive Devices Commode Comments OT Toileting Comments pt manages clothing and hygiene while seated on commode OT ADL-Bathing Comments OT Bathing Comments not observed M5 OT- IP IADL's Start: 04/25/25 15:38 Freq: Status: Active Protocol: Document 04/25/25 15:39 CGR (Rec: 04/25/25 15:52 CGR Desktop) OT-Instrumental Activities of Daily Living Deficits IADL Deficits Identified Deficits Home Safety Awareness Awareness of Need for Assistance at Home Decreased Awareness Ability to Problem Solve Emergency Able to Problem Solve Situations Medication Management Medication Management No Deficits Identified Money Management Money Management No Deficits Identified Meal Preparation Meal Preparation No Deficits Identified Field Merchandiser Field Merchandiser No Deficits Identified Driving Driving Comments 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 M6 OT- IP Functional Cognition Start: 04/25/25 15:38 Freq: Status: Active Protocol: Document 04/25/25 15:39 CGR (Rec: 04/25/25 15:52 CGR Desktop) Cognitive Factors Limiting Selfcare Function Cognitive Ability Level of Alertness Alert Patient Orientation Name,Age,Birthday,Month,Date, Year,Day of Week,Place, Situation Attention Span Ability Capable of Focused Attention, Capable of Sustained Attention Ability to Follow Commands Able to Follow One Step Commands with Increased Time, Able to Follow One Step Commands with Repetition Cognitive Comments Cognitive Assessment Comments Pt appears slow but able to answer all questions. He regularly makes derogatory comments about himself in jest . OT- Vision and Hearing OT- Hearing Assessment OT- Hearing Assessment WFL OT- Vision Assessment Visual Attentiveness WFL Occular Pursuits WFL M7 OT- IP Mobility and Balance Start: 04/25/25 15:38 Freq: Status: Active Protocol: Document 04/29/25 12:22 [facility] (Rec: 04/29/25 12:40 [facility] Desktop) OT-Transfer Assessment Transfers Transfer Ability Standby Assistance,Contact Guard Assistance Technique Transfer Destination Chair,Toilet Transfer Technique Stand Step Pivot Devices Transfer Assistive Devices Gait Belt,Front Wheeled Walker Comments Mobility Comments Mobility from toilet to sink to chair. Pt needs fewer vcs today to stay within walker but still requires vc/tc to align himself safely before initiating descent into sitting. OT- Gait Assessment Gait Gait Assistance Required: Contact Guard Assist,Minimum Assistance Distance (Feet) 10 Comments Gait Ability Comments Pt able to manage walker better today, and staying within walker with fewer verbal cues. Pt needs increased cues to line up correctly and to make sure the chair is behind himself prior to intiating descent into sitting. OT- Balance Assessment Sitting Balance and Reactions Static Sitting Balance Ability Good Dynamic Sitting Balance Ability Fair Standing Balance and Reactions Static Standing Balance Ability Fair Dynamic Standing Balance Ability Fair M8 OT- IP Objective Assessments Start: 04/25/25 15:38 Freq: Status: Active Protocol: Document 04/25/25 15:39 CGR (Rec: 04/25/25 15:52 CGR Desktop) OT Gross Range of Motion Upper Extremity Range of Motion Assessment Within Functional Limits OT Strength Upper Extremity Strength Assessment Within Functional Limits Comments Strength Comments grossly 4/5 OT- Coordination Assessment Upper Extremity Finger to Nose Test Within Functional Limits Finger Tapping Test Within Functional Limits OT-Muscle Tone Assessment Muscle Tone WNL Yes OT Sensation Assessment Edema Edema Absent M9 OT- IP Assessment and Plan Start: 04/25/25 15:38 Freq: Status: Active Protocol: Document 04/29/25 12:22 TJOHNSTON (Rec: 04/29/25 12:40 TJOHNSTON Desktop) OT Summary Assessment and Plan Potential Rehabilitation Potential Excellent Analytic Complexity at Evaluation Low Summary OT Impairments Balance,Functional Cognition, Functional Mobility,Grooming, Dressing,Toileting,Bathing, Toilet Transfers,Shower Transfers,Activity Tolerance Assessment Summary Pt is pleasant and cooperative and less lethargic today. Pt required fewer vcs overall for staying within walker while performing ambulation for his ADL tasks. Pt was able to self correct slumped posture sink side with vcs and managed oral hygiene task I. OT believes pt may benefit from education of LB AE and hope to address this next tx. Pt continues to be appropriate for skilled OT services, cont per POC. Goals Dressing Goal Independent,Charge Lpn,Sock Aid Toileting Goal Independent Bathing Goal Independent Toilet Transfer Goal Independent Shower Transfer Goal Independent Days to Meet Goals 7 Frequency of Treatment Other frequency 5x per week Treatment Plan OT Treatment Plan ADL Training,Functional Mobility,Patient/Family Education,Discharge Planning Other Treatment Recommendations and Next LB dressing and foot care. Treatment Focus Discharge Recommendations Other Discharge Recommendations inpatient ETOH rehab Transportation Needs at Discharge Private Vehicle
--- NOTE | 2025-04-29 12:59 | CM.DPC ---
DCP Cont. Reviewed EMR and team rounds for pt's status updates. Met with pt at bedside to offer support and to provide updated information re: his 's medical status, and plan for the next day or so with his [id number] and with his own POC. LEADING FIREFIGHTER explained that the Hospitalist will be reducing the medication that is making it hard for him to process and think, and that this is being started today in an effort to assist him to be more cognitively clear in order to make potential continuing tx decisions re: his , who is currently also hospitalized and on life support. He did express understanding, was able to ask appropriate questions, and was able to share with this LEADING FIREFIGHTER that he got to spend time with Mom, his [id number], who is also hospitalized here. He expressed feeling overwhelmed with grief and guilt by his 's deteriorating condition and guarded prognosis, stating several time I wish it were me, I should be the one to , I should have been the one to have the stroke. He was very tearful, but did express understanding and was able to repeat back to this LEADING FIREFIGHTER the information that had been shared with him. He understands that Jessi, his [id number], will be discharging here from the hospital tomorrow, and will be going to SNF rehab. Following rehab, she will then transition to long-term care in the same facility. [facility] is coordinating the payment part of this through Medicaid, and will not be returning back home. LEADING FIREFIGHTER asked if pt would like to meet with the hospital Ep Specialist for additional support, however he declined, stating I'm not a believer, and no, I don't want that. Pt did express understanding that if his does not improve, and continues to worsen, that he may be needed to make a decision as to whether or not continue life support, should her decline be irreversable. He was again tearful, however does comprehend the gravity of the situation and plan for the next 24-hours.
--- NOTE | 2025-04-29 13:46 | CM.DPNOTE ---
Rental Tenant Information Patient and spouse Cheri's tenant information; Rossy Hoskins P [phone]. Rossy has been renting from Cheri and patient at [address] [facility] for 10+ years. JW
--- NOTE | 2025-04-29 14:12 | ST.IPCSEOM ---
Visit Care Team Role Provider Type Mario Cutler MD Primary Care Provider Non-Staff Specialty: Family Practice Address: [address] [place] [address], [address], [place], [address] Email: Milton Pardo MD Emergency Provider Physician Referring Provider Specialty: Emergency Medicine Address: [address] [place] [address], [address] Fax: Email: [email or web address] Lauren Fairbanks MD Admit Provider Physician Attending Provider Specialty: [facility] Address: [address] [place] [address], [address] Phone: Fax: Email: [email or web address] Current Diagnoses Alcohol dependence with withdrawal delirium (04/23/25) Past Medical History (Last Reviewed 04/25/25 @ 07:55 by Otto George MD) Acne (Medical Unknown) Alcohol abuse (Social Hx ~2016) Decreased libido (Medical) Erectile dysfunction (Medical) Essential hypertension (Medical 09/12/16) Foot osteomyelitis, right (Medical) Hepatosplenomegaly (Medical) Hepatosplenomegaly (Medical) Hypertension (Medical 2004) Low back pain (Medical Unknown) Neuropathic foot ulcer (Medical) Polyneuropathy (Medical Unknown) Portal hypertension (Medical) Speech-Language Pathology Swallow Evaluation POND SCALER Clinical Swallow Evaluation Start: 04/29/25 13:48 Freq: Status: Active Protocol: Document 04/29/25 13:49 SS (Rec: 04/29/25 14:11 SS Desktop) Clinical Swallow Evaluation Session Time Visit Start Time 13:25 Visit Stop Time 13:45 Total Visit Minutes [address] Lauren Fairbanks MD Reason for Referral Swallowing concerns Setting Assessment Location Acute Care Visit Type Note Type Initial evaluation Patient Information Identification Type Name,Date of History Per H&P: 49 yo male with history of alcohol dependence with withdrawal and osteomyelitis secondary to ESBL E coli in the setting of right foot neuropathic ulcer, hepatosplenomegaly, portal hypertension, peripheral neuropathy and hypertension who presented to the emergency department with severe alcohol intoxication and suicidal ideation this morning . At the time of arrival at 7 :45 a.m. this morning, his alcohol level was 0.504. He was quite agitated and voicing suicidal ideation. He showed up with his [id number] who was also intoxicated. She had reported drinking with him to keep him company. He had significant agitation requiring treatment with IV Benadryl, Haldol, and diazepam . He also received IV fluids and thiamine. The plan was to monitor him for 4-5 hours to see if as his alcohol level decreased whether his suicidal ideation improved. Unfortunately, he became agitated again in the emergency department later in the day and required additional IV diazepam. His ammonia level was elevated at 66. Lactulose was ordered but could not be given due to his agitation. Due to his ongoing agitation and concern for withdrawal, admission was recommended. Patient tells me he has been drinking 6-12 high alcohol content large beers daily. He has not been eating . He has been drinking some water. He has been having dry heaves but no active emesis or hematemesis. He has been falling and hitting his head, but does not have any abrasions. He denies loss of consciousness. He is very down on himself due to his alcohol dependence. He denies active suicidal ideation at this time. Repeat alcohol level was done and was 0.386. On arrival to the intensive care unit, he is extremely tremulous, but alert and oriented. He is cooperative and pleasant. Chest CT on revealed no central pulmonary embolism, no significant acute airspace opacity, no pleural effusion, and mild splenomegaly. Clinical swallowing evaluation completed to assess current swallowing function. Per recent nursing note, pt coughed and reported water going down the wrong pipe when swallowing pills with water during med pass. He reported that he has been aspirating when he drinks water at home. RN did not observe any aspiration or coughing with liquids or solids outside of this specific incident. Subjective Observations Orders received, chart reviewed. Spoke with RN prior to session and RN reported no overt concerns. Pt expressed he typically eats regular texture food, though has had poor appetite for several months. He had received news about his this morning, who is hospitalized at this hospital, and was dejected throughout the assessment. He has difficulty staying awake, likely an effect of Librium. Pt swallowing difficulty or hx of dysphagia. He was sitting upright with his lunch tray in front of him. He reported unintentional weight loss, though is uncertain of amount. Reported by Patient/Caregiver Other Symptoms Coughing,Difficulty swallowing pills,Weight loss Current Diet Regular (IDDSI 7) Baseline Feeding Method Needs some assistance The IDDSI Framework Protocol: IDDSI.1 Objective Assessment Mental Status Responsive,Cooperative, Lethargic Oral Integrity WFL Lip Function Within normal limits Tongue Function Within normal limits Jaw Function Within normal limits Hard/Soft Palate Function Within normal limits Comment Within normal limits strength, coordination, and ROM across OME. CNE was WNL. Food and Liquid Trials Position During Assessment Upright (90 degrees) Liquids Trialed Thin (IDDSI 0) Solid Trials Purred (IDDSI 4),Soft & Bite- sized (IDDSI 6),Regular (IDDSI 7) Administration Type Straw,Needs some assistance Oral Impairment Within normal limits Oral Phase Comments Oral acceptance of bolus was WNL. Pt demonstrated adequate labial seal. Anterior- posterior transit of the bolus and mastication appeared timely. There was no significant oral residue per observation. Pharyngeal Impairment Within normal limits Pharyngeal Phase Comments Pharyngeal phase cannot be objectively assessed at bedside though subjectively appeared timely and coordinated. Pt passed the 3 ounce water test. No overt s/ sx of laryngeal penetration or aspiration observed with all PO trials. Laryngeal elevation and excursion was present via palpation. Fatigue/Endurance Endurance WNL The IDDSI Framework Protocol: IDDSI.1 Findings Swallowing Function Within normal limits Severity of Swallow Impairment Within normal limits Contributing Factors to Swallow Reduced alertness or attention Impairment ,Difficulty following directions Prognosis Good Comment Currently, pt does not present with indications of oropharyngeal dysphagia. Though pt is able to self-feed , he may need intermittent supervision if cognition waxes and wanes. Recommend pt continue baseline diet of regular textures and thin liquids with adherence to aspiration precautions below. Pt expressed understanding of assessment results. POND SCALER discussed assessment results and recommendations with MD. Order discharged at this time. POND SCALER to follow up if change to swallowing function is noted. Impact on Safety and Functioning Risk for aspiration,Risk for inadequate nutrition/hydration Comments 2/2 current cognitive status Recommendations Instrumental Assessment No Swallowing Treatment No Recommended Solids Regular (IDDSI 7) Recommended Liquids Thin (IDDSI 0) Safety Precautions/Swallowing 1 to 1 distant supervision, Recommendations Feed only when alert,Reduce distractions,Remain upright ( 90 degrees) during all oral intake,Upright position at least 30 minutes after meals, Small bites and sips when eating,Slow rate; swallow between bites,Set-up assistance Medication Recommendations As Tolerated,Whole in Carrier Discharge Recommendations Home Referrals Recommended Referrals Dietary Education Patient/Caregiver Education Described results of evaluation,Patient expressed understanding of evaluation
--- NOTE | 2025-04-29 14:52 | CM.DPNOTE ---
Addendum entered by REE Prakash 04/29/25 15:03: ADD: Spoke with Billing dept, [facility] ; water will not be shut off, however, patient's utility bill is outstanding and needs to be addressed eventually. Utility dept aware patient/sp admitted and will keep water on for as long as possible. Original Note: Placed call to [facility] Dept.P [phone] Per request from patient's tenant Rossy Hoskins P [phone]. Had to . Requested that property water not be shut off at [address] [facility], [place] [address]. Property owners admitted to . Case # [id number] JW
[2025-04-29 14:58] VITALS: BP 128/77; PULSE 112; RESP 16; TEMP 36.8
[2025-04-29] MEDS: LACTULOSE 20 GM/30 ML SOLUTION PO ×2 (15:19→20:05)
--- NOTE | 2025-04-29 15:31 | PC.NURSE ---
Assumed care of pt at 1500. Upon assessment, pt found tearful and anxious sitting in chair, had just received bad news about . A&Ox4, c/o generalized pain and neuropathy to bilat LE. Lung sounds CTA, bowel sounds present. Meds administered as ordered, including PRN pain meds. No other needs at this time, pt left resting comfortably in the chair, call light within reach.
--- NOTE | 2025-04-29 17:11 | PM.PN.1 ---
Subjective Subjective Interval history: Summary: 49 male with alcohol withdrawal. He has a history of severe alcohol use disorder with a recurrent admissions. He also has a subacute foot infection and foot ulcers. This issue has been relatively quiescent during this admission. He was not recently been on antibiotics for this. S: He feels weak and a little shaky but predominantly a wreck emotionally as his sposue is admitted to the ICU here. He is scared and anxious. Exam Vital Signs (past 8 hours): - 04/29/25 09:59 04/29/25 14:58 Temperature 98.2 F Pulse Rate 110 H 112 H Respiratory Rate 16 16 Blood Pressure 128/77 Fraction of Inspired Oxygen 35 Oxygen Delivery Method Room Air Oxygen Flow Rate 0 Narrative Exam Narrative: NAD, alert and oriented. Slow to respond but clear speech. Lungs are clear, normal rate and effort. Heart is regular, no murmur gallop or rub. Abdomen is soft, non distended. Extremities are free of edema. Objective Labs 04/29/25 04:56 04/29/25 04:56 Labs: Laboratory Results - last 24 hr 04/29/25 04:56 WBC 7.0 RBC 3.51 L Hgb 9.7 L Hct 28.2 L MCV 80.4 MCH 27.6 MCHC 34.4 RDW 19.1 H Plt Count 52 L Neut % (Auto) 56.7 Lymph % (Auto) 19.0 L [place] % (Auto) 19.1 H Eos % (Auto) 4.7 H Baso % (Auto) 0.5 Neut # (Auto) 4000 Lymph # (Auto) 1300 [place] # (Auto) 1300 H Eos # (Auto) 300 Baso # (Auto) 0 Sodium 131 L Potassium 4.1 Chloride 101 Carbon Dioxide 20 L BUN 19 Creatinine 0.92 Estimated GFR > 60 BUN/Creatinine Ratio 20.7 Glucose 107 H Calcium 8.7 Magnesium 1.5 L PFSH Medical History Hepatosplenomegaly Portal hypertension Hepatosplenomegaly Foot osteomyelitis, right Neuropathic foot ulcer Decreased libido Erectile dysfunction Alcohol abuse (~2016) Low back pain (Unknown) Polyneuropathy (Unknown) Acne (Unknown) Hypertension (2004) Essential hypertension (09/12/16) Surgical History H/O surgical amputation of finger Hx of cholecystectomy (2001) Family History Grandmother Mental health problem Grandfather Cancer Grandmother Cancer Mother History of back problems Father Amputation leg, bilat Social History household members: spouse and family Tobacco: How many years used: 1 Smokeless tobacco user: chewing tobacco (many, many years) alcohol intake: current substance use type: does not use Assessment & Plan Assessment & Plan narrative: 1. Alcohol intoxication with severe alcohol withdrawal and agitated delirium, active. 2. Suicidal ideation, resolved. 3. Normocytic anemia, stable. 4. Thrombocytopenia, active but stable 5. Hypernatremia, resolved. Now hyponatremia, chronic. 6. Hyperglycemia, stable. 7. Transaminitis, active. 8. Hypertension, stable. Await medication reconciliation. 9. History of ESBL E coli osteomyelitis of the right foot due to neuropathic ulcer, unclear status. Right ulcer has improved. 10. Hypomagnesemia PLAN: -Librium scheduled, reduce to 50 q8 given slowed responses in general and sleepiness, though he is alert and appropriate today. Able to have goals of care discussions about his spouse. -CIWA with prn valium. -PT -discharge planning ongoing. -replete and follow Mg as needed. Na stable 132 today. Mg 1.5. h/h also stable can stop trending cbc. Time-Based Coding :: [TOTAL MINUTES] spent with patient and on the chart (including review of chart, obtaining history, exam, reviewing outside data, placing orders, documenting exam and treatment plan, and counseling patient) on [DATE].
[2025-04-29 20:00] VITALS: BP 131/81; PULSE 115; RESP 16; TEMP 36.7; O2SAT 100
[2025-04-29] MEDS: HYDROMORPHONE 0.5 MG INJ IV (20:05)
[2025-04-30 04:00] VITALS: BP 135/57; PULSE 115; RESP 16; TEMP 36.8; O2SAT 98
[2025-04-30] MEDS: chlordiazePOXIDE 25 MG CAPSULE 50 MG PO ×3 (04:36→20:45)
[2025-04-30 04:59] LABS: Add Manual Diff / Slide Review NO; Basophils Absolute Auto 0 /uL (0-100); Basophils Percent Auto 0.5 % (0-2); Eosinophils Absolute Auto 300 /uL (0-450); Eosinophils Percent Auto 5.6 % (2-4); Hematocrit 27.9 % (41-53); Hemoglobin 9.7 g/dL (13.5-17.5); Lymphocytes Absolute Auto 1100 /uL (1100-4500); Lymphocytes Percent Auto 22.2 % (25-40); Mean Corpuscular HGB Conc 34.7 % (30-36); Mean Corpuscular Hemoglobin 27.8 PG (26-34); Mean Corpuscular Volume 79.9 fL (80-100); Monocytes Absolute Auto 1200 /uL (0-900); Monocytes Percent Auto 25.1 % (3-14); Neutrophils Absolute Auto 2200 /uL (1500-7000); Neutrophils Percent Auto 46.6 % (50-75); Platelet Count 57 X10^3/uL (150-400); Red Blood Cell Count 3.49 X10^6/uL (4.5-5.9); Red Cell Distribution Width 19.3 % (11.6-14.8); White Blood Cell Count 4.7 X10^3/uL (4.5-11.0)
[2025-04-30 05:23] LABS: BUN Creatinine Ratio 21.5 (6-22); Blood Urea Nitrogen 20 mg/dL (9-20); Calcium 8.8 mg/dL (8.4-10.2); Carbon Dioxide 21 mmol/L (22-32); Chloride 100 mmol/L (98-107); Estimated Glomerular Filt Rate > 60 mL/min (>60); Glucose 113 mg/dL (70-99); HEMOLYSIS < 15 (0-50); Magnesium 1.6 mg/dL (1.6-2.3); Potassium 3.7 mmol/L (3.4-5.1); Sodium 131 mmol/L (137-145)
[2025-04-30] MEDS: PANTOPRAZOLE DR 40 MG TABLET PO (06:21)
[2025-04-30] MEDS: PREGABALIN 75 MG CAPSULE PO ×3 (08:41→20:45)
[2025-04-30] MEDS: SPIRONOLACTONE 25 MG TABLET PO (08:41)
[2025-04-30] MEDS: OXYCODONE IR 5 MG TABLET PO ×3 (08:41→18:24)
[2025-04-30] MEDS: THIAMINE 100 MG TABLET PO (08:41)
[2025-04-30] MEDS: FOLIC ACID 1 MG TABLET PO (08:41)
[2025-04-30] MEDS: MULTIVITAMIN 1 TABLET 1 TAB PO (08:41)
[2025-04-30] MEDS: FUROSEMIDE 40 MG TABLET PO (08:41)
[2025-04-30] MEDS: DOXYCYCLINE HYCLATE 100 MG TABLET 50 MG PO ×2 (08:42→20:45)
[2025-04-30] MEDS: LACTULOSE 20 GM/30 ML SOLUTION PO ×2 (08:42→16:42)
[2025-04-30] MEDS: NICOTINE 21 MG PATCH TOP (08:42)
--- NOTE | 2025-04-30 10:40 | PT.IPTN ---
Current Diagnoses Alcohol dependence with withdrawal delirium (04/23/25) Physical Therapy Treatment Note M2 PT-IP Current Condition Start: 04/25/25 12:09 Freq: NEEDED Status: Active Protocol: Document 04/25/25 12:10 MB (Rec: 04/25/25 12:49 MB Desktop) Physical Therapy Current Condition Current Condition Evaluation Date 04/25/25 Treatment Diagnosis SI M3 PT-IP Subjective Start: 04/25/25 12:09 Freq: NEEDED Status: Active Protocol: Document 04/30/25 10:40 AB (Rec: 04/30/25 12:41 AB Desktop) Subjective Physical Therapy Visit Type Type Treatment Note Visit Start Time 10:40 Visit Stop Time 11:10 Number of DIRECTOR SPORTS Visits 0 Physical Therapy Visit Comments Patient Comments wants to visit his M4 PT-IP Mobility and Gait Start: 04/25/25 12:09 Freq: NEEDED Status: Active Protocol: Document 04/30/25 10:40 AB (Rec: 04/30/25 12:41 AB Desktop) PT-Bed Mobility Assessment Supine to Sit Supine to Sit Minimal Assistance,Head of Bed Elevated,Bedrails PT-Transfer Assessment Sit to and From Stand Sit to and from Stand Moderate Assistance,1 Person Assistance,Use of Upper Extremities Equipment Transfer Assistive Device Gait Belt,Front Wheeled Walker Orthotic/Prosthetic Devices or Brace: No Transfers Transfer Destination Wheelchair Transfer Technique ambulated Transfer Ability Level of Assist Moderate Assistance,1 Person Assistance,Use of Upper Extremities Comments Mobility Comments pt in bed asleep but able to wake up when PT came in. pt agreed to do PT. pt stated that he wants to walk to visit his spouse. pt's spouse also here in the hospital. pt needing increase time with all tasks and max cues. pt with decrease safety awareness and needing increase cues for safety. Asked pt if PT can put his post-op shoes on and pt refused. pt completed supine to sit min A and cues and able to sit on EOB SBA. sit to stand mod A and cues. unsteady with initial standing and cues to use FWW for support. pt ambulated in the hallway using FWW mod A and max cues. presents with unsteady ataxic gait. pt also tends to move FWW too far forwards and cued to correct. pt sat on w/c outside ' room. Left pt with NAC. Gait Assessment Gait Gait Assistance Required: Moderate Assistance Distance (Feet) 50 Able to Maintain Weight Bearing Status Yes During Gait Assistive Devices Assistive Device Gait Belt,Front Wheeled Walker Orthotic/Prosthetic Devices or Brace: No Gait Deviations General Gait Pattern Ataxic,Decreased Stride Length ,Decreased Feet Clearance Factors Limiting Gait Function Factors Limiting Gait Function Decreased Activity Tolerance, Decreased Strength,Difficulty Following Directions, Incoordination,Limited Range of Motion,Pain,Poor Balance, Poor Safety Awareness M5 PT-IP Objective Assessments Start: 04/25/25 12:09 Freq: NEEDED Status: Active Protocol: Document 04/25/25 12:10 MB (Rec: 04/25/25 12:49 MB Desktop) Orientation Orientation/Cognition Level of Alertness Alert Orientation Name,Age,Birthday,Month,Date, Year,Place,Situation Language Function Ability No Deficits Noted Safety Awareness Decreased Safety Awareness Memory Description No Deficits Noted Gross Range of Motion Upper Extremity ROM Impairments Defer to OT Lower Extremity ROM Assessment Bilaterally Impaired Impairments R foot is swollen, B LEs appear to have cellulitis, multiple skin wounds, limited B ankle movement Strength Lower Extremity Strength Assessment Bilaterally Impaired Comments Strength Comments Did not MMT given skin issues and LEs are functional Coordination Assessment Gross Coordination Gross Coordination Impaired Sensation Assessment Sensation Gross Sensation Right LE Impaired,Left LE Impaired M6 PT-IP Treatment Start: 04/25/25 12:09 Freq: NEEDED Status: Active Protocol: Document 04/30/25 10:40 AB (Rec: 04/30/25 12:41 AB Desktop) Physical Therapy Treatment Education Education Provided Safety M7 PT-IP Assessment and Plan Start: 04/25/25 12:09 Freq: NEEDED Status: Active Protocol: Document 04/30/25 10:40 AB (Rec: 04/30/25 12:41 AB Desktop) PT Summary Assessment and Plan Potential Rehabilitation Potential Fair Summary Impairments Pain,ROM,Strength,Balance, Coordination,Sensation,Tone, Cognition,Bed Mobility, Transfers,Gait,Activity Tolerance Progress Towards Goals Slow Progress due to Medical Issues,Slow Progress due to Activity Tolerance,Slow Progress - Other Assessment Summary pt continues to require mod A using FWW and ambulation and max cues for all tasks for safety. pt continues to have decrease safety awareness and will require 24/7 assist. pt will benefit from SNF rehab. Goals Bed Mobility Goal Independent Transfer Goal Independent,Front Wheeled Walker,Four Wheeled Walker Gait Goal Independent,Front Wheel Walker ,Four Wheel Walker Gait Distance 75 Other Goals Pt will ascend and descend 4 steps with left rail to allow safe home entrance. Days to Meet Goals 5 Frequency of Treatment Frequency Of Treatment Once a Day Treatment Plan Physical Therapy Treatment Plan Bed Mobility Training,Transfer Training,Gait Training, Therapeutic Exercise,Balance Retraining,Discharge Planning, Neuromuscular Re-ed, Coordination Retraining Other Recommendations and Next Treatment Recommend limiting gait Focus distance to functional distances as needed given foot wounds Precautions Other Precautions fall Recommendations To Nursing Amount of Assist Needed 1 Person Assist Discharge Recommendations PT Discharge Recommendations SNF Rehab Transportation Needs at Discharge Private Vehicle,Wheelchair/ Cabulance - PT assist 1
[2025-04-30 12:00] VITALS: BP 121/78; PULSE 107; RESP 17; TEMP 36.7; O2SAT 99
--- NOTE | 2025-04-30 12:54 | CM.DPC ---
Addendum entered by REE Carvalho 04/30/25 13:13: ADD: SW made initial referrals to [facility] to review in case SNF needed before return home or ideally Inpt ETOH tx after he strengths and more independent with ADLs. BF Original Note: DCP Cont: Per MD, will continue with Librium taper for withdrawal and to not keep pt sedated too much as to participate in decision making for his spouse also admitted and currently intubated with guarded prognosis. SW observed pt ambulating the roberts with PT and FWW to spouse's room to sit bedside for a visit while she is intubated. PT confirms pt with poor safety awareness right now and high fall risk and 1PA and recommending SNF at this time pending pt's progress with taper off librium. Pt not yet medically stable for discharge and SW to make initial referrals to SNFs in case needed at d/c before attempting Inpt ETOH tx (pt will need to be independent with ADLs for ETOH inpt tx) but pt's [place] and lack of support at d/c likely a barrier to SNF. REE Carvalho
[2025-04-30] MEDS: MAGNESIUM CHLORIDE 64 MG TABLET 128 MG PO (13:19)
--- NOTE | 2025-04-30 14:38 | PM.PN.1 ---
Subjective Subjective Interval history: Summary: 49 male with alcohol withdrawal. He has a history of severe alcohol use disorder with a recurrent admissions. He also has a subacute foot infection and foot ulcers. This issue has been relatively quiescent during this admission. He was not recently been on antibiotics for this. S: He feels weak but predominantly a wreck emotionally as his sposue is admitted to the ICU here. He is scared and anxious. Exam Vital Signs (past 8 hours): - 04/30/25 09:00 04/30/25 12:00 Temperature 98.0 F Pulse Rate 107 H Respiratory Rate 17 Blood Pressure 121/78 Pulse Oximetry 99 Oxygen Delivery Method Room Air Oxygen Flow Rate 0 Fraction of Inspired Oxygen 35 Oxygen Delivery Method Room Air Oxygen Flow Rate 0 Narrative Exam Narrative: NAD, alert and oriented. Slow to respond but clear speech. Lungs are clear, normal rate and effort. Heart is regular, no murmur gallop or rub. Abdomen is soft, non distended. Extremities are free of edema. Objective Labs 04/30/25 04:34 04/30/25 04:34 Labs: Laboratory Results - last 24 hr 04/30/25 04:34 WBC 4.7 RBC 3.49 L Hgb 9.7 L Hct 27.9 L MCV 79.9 L MCH 27.8 MCHC 34.7 RDW 19.3 H Plt Count 57 L Neut % (Auto) 46.6 L Lymph % (Auto) 22.2 L [place] % (Auto) 25.1 H Eos % (Auto) 5.6 H Baso % (Auto) 0.5 Neut # (Auto) 2200 Lymph # (Auto) 1100 [place] # (Auto) 1200 H Eos # (Auto) 300 Baso # (Auto) 0 Sodium 131 L Potassium 3.7 Chloride 100 Carbon Dioxide 21 L BUN 20 Creatinine 0.93 Estimated GFR > 60 BUN/Creatinine Ratio 21.5 Glucose 113 H Calcium 8.8 Magnesium 1.6 PFSH Medical History Hepatosplenomegaly Portal hypertension Hepatosplenomegaly Foot osteomyelitis, right Neuropathic foot ulcer Decreased libido Erectile dysfunction Alcohol abuse (~2016) Low back pain (Unknown) Polyneuropathy (Unknown) Acne (Unknown) Hypertension (2004) Essential hypertension (09/12/16) Surgical History H/O surgical amputation of finger Hx of cholecystectomy (2001) Family History Grandmother Mental health problem Grandfather Cancer Grandmother Cancer Mother History of back problems Father Amputation leg, bilat Social History household members: spouse and family Tobacco: How many years used: 1 Smokeless tobacco user: chewing tobacco (many, many years) alcohol intake: current substance use type: does not use Assessment & Plan Assessment & Plan narrative: 1. Alcohol intoxication with severe alcohol withdrawal and agitated delirium, active. 2. Suicidal ideation, resolved. 3. Normocytic anemia, stable. 4. Thrombocytopenia, active but stable 5. Hypernatremia, resolved. Now hyponatremia, chronic. 6. Hyperglycemia, stable. 7. Transaminitis, active. 8. Hypertension, stable. Await medication reconciliation. 9. History of ESBL E coli osteomyelitis of the right foot due to neuropathic ulcer, unclear status. Right ulcer has improved. 10. Hypomagnesemia PLAN: -Librium scheduled, reduced to 50 q8 given slowed responses in general and sleepiness, though he is alert and appropriate today. Able to have goals of care discussions about his spouse. -CIWA with prn valium. -PT -discharge planning ongoing. -replete and follow Mg as needed. Na stable 131 today. Mg 1.6. h/h also stable can stop trending cbc. Time-Based Coding :: [TOTAL MINUTES] spent with patient and on the chart (including review of chart, obtaining history, exam, reviewing outside data, placing orders, documenting exam and treatment plan, and counseling patient) on [DATE].
[2025-04-30 19:56] VITALS: BP 115/74; PULSE 104; RESP 14; TEMP 36.4; O2SAT 98
[2025-05-01] MEDS: chlordiazePOXIDE 25 MG CAPSULE 50 MG PO ×3 (04:29→20:19)
[2025-05-01 05:08] VITALS: BP 143/74; PULSE 117; RESP 18; TEMP 37; O2SAT 100
[2025-05-01 05:35] LABS: BUN Creatinine Ratio 17.5 (6-22); Blood Urea Nitrogen 18 mg/dL (9-20); Calcium 8.9 mg/dL (8.4-10.2); Carbon Dioxide 24 mmol/L (22-32); Chloride 96 mmol/L (98-107); Estimated Glomerular Filt Rate > 60 mL/min (>60); Glucose 127 mg/dL (70-99); HEMOLYSIS < 15 (0-50); Magnesium 1.6 mg/dL (1.6-2.3); Potassium 3.7 mmol/L (3.4-5.1); Sodium 132 mmol/L (137-145)
[2025-05-01] MEDS: PANTOPRAZOLE DR 40 MG TABLET PO (07:30)
[2025-05-01 08:19] VITALS: BP 143/75; PULSE 121; RESP 20; TEMP 37.7; O2SAT 98
[2025-05-01] MEDS: MULTIVITAMIN 1 TABLET 1 TAB PO (09:32)
[2025-05-01] MEDS: SPIRONOLACTONE 25 MG TABLET PO (09:32)
[2025-05-01] MEDS: FUROSEMIDE 40 MG TABLET PO (09:32)
[2025-05-01] MEDS: THIAMINE 100 MG TABLET PO (09:33)
[2025-05-01] MEDS: DOXYCYCLINE HYCLATE 100 MG TABLET 50 MG PO ×2 (09:33→20:19)
[2025-05-01] MEDS: LACTULOSE 20 GM/30 ML SOLUTION PO (09:33)
[2025-05-01] MEDS: FOLIC ACID 1 MG TABLET PO (09:33)
--- NOTE | 2025-05-01 10:38 | PT-IP ANOTE ---
Pt discussed in rounds, has fever today and hold PT per DO today.
--- NOTE | 2025-05-01 12:16 | PC.NURSE ---
Addendum entered by Angelique Salazar R.N. 05/01/25 16:11: Patient leslie lifted over to his wifes room, he stayed with her for an hour or so and was put back in bed. Took morning medications and oral librium, he has been groggy all shift and sleepy. Patients mom called twice but patient has been to tired to be able to talk to her. Patient voided 650cc of straw colored urine in the urinal earlier. Resting comfortably. Original Note: Patient is lethargic, he is not stable or steady on his feet. He is aware of his surroundings. He is sad about his not doing well. Patient has a rash like pustules on his face, neck, and chest. is aware. Patient is resting.
[2025-05-01 12:31] VITALS: TEMP 38.1
[2025-05-01] MEDS: ACETAMINOPHEN SUSP 650 MG/20.3 ML UDC PO ×2 (12:31→22:53)
--- NOTE | 2025-05-01 13:10 | PM.PN.1 ---
Subjective Subjective Interval history: Summary: 49 male with alcohol withdrawal. He has a history of severe alcohol use disorder with a recurrent admissions. He also has a subacute foot infection and foot ulcers. This issue has been relatively quiescent during this admission. He was not recently been on antibiotics for this. S: He feels weak but predominantly a wreck emotionally as his sposue is admitted to the ICU here and we are transitioning to comfort. He is scared and anxious. Fever overnight to 100.6 as well, have ordered CXR and UA today. Exam Vital Signs (past 8 hours): - 05/01/25 08:19 05/01/25 12:31 Temperature 99.8 F H 100.6 F H Pulse Rate 121 H Respiratory Rate 20 Blood Pressure 143/75 H Pulse Oximetry 98 Oxygen Flow Rate 0 Fraction of Inspired Oxygen 35 Oxygen Delivery Method Room Air Oxygen Flow Rate 0 Narrative Exam Narrative: NAD, alert and oriented. Slow to respond but clear speech. Lungs are clear, normal rate and effort. Heart is regular, no murmur gallop or rub. Abdomen is soft, non distended. Extremities are free of edema. Objective Labs 04/30/25 04:34 05/01/25 05:13 Labs: Laboratory Results - last 24 hr 05/01/25 05:13 Sodium 132 L Potassium 3.7 Chloride 96 L Carbon Dioxide 24 BUN 18 Creatinine 1.03 Estimated GFR > 60 BUN/Creatinine Ratio 17.5 Glucose 127 H Calcium 8.9 Magnesium 1.6 PFSH Medical History Hepatosplenomegaly Portal hypertension Hepatosplenomegaly Foot osteomyelitis, right Neuropathic foot ulcer Decreased libido Erectile dysfunction Alcohol abuse (~2017) Low back pain (Unknown) Polyneuropathy (Unknown) Acne (Unknown) Hypertension (2004) Essential hypertension (09/12/16) Surgical History H/O surgical amputation of finger Hx of cholecystectomy (2001) Family History Grandmother Mental health problem Grandfather Cancer Grandmother Cancer Mother History of back problems Father Amputation leg, bilat Social History household members: spouse and family Tobacco: How many years used: 1 Smokeless tobacco user: chewing tobacco (many, many years) alcohol intake: current substance use type: does not use Assessment & Plan Assessment & Plan narrative: 1. Alcohol intoxication with severe alcohol withdrawal and agitated delirium, active. 2. Suicidal ideation, resolved. 3. Normocytic anemia, stable. 4. Thrombocytopenia, active but stable 5. Hypernatremia, resolved. Now hyponatremia, chronic. 6. Hyperglycemia, stable. 7. Transaminitis, active. 8. Hypertension, stable. 9. History of ESBL E coli osteomyelitis of the right foot due to neuropathic ulcer, unclear status. Right ulcer has improved. 10. Hypomagnesemia PLAN: -Librium scheduled, reduced to 50 q8 given slowed responses in general and sleepiness, though he is alert and appropriate today. Able to have goals of care discussions about his spouse. Reduce librium to BID starting tomorrow. -CIWA with prn valium. -PT -discharge planning ongoing. -replete and follow Mg as needed. Na stable 132 today. Mg 1.6. Will repeat CBC tomorrow given fever, is on doxycylcline currently. Will await CXR and UA before broadening antibiotics further. Time-Based Coding :: [TOTAL MINUTES] spent with patient and on the chart (including review of chart, obtaining history, exam, reviewing outside data, placing orders, documenting exam and treatment plan, and counseling patient) on [DATE].
--- NOTE | 2025-05-01 13:13 | DI.RAD.S_ITS ---
PROCEDURE: XR CHEST 1V INDICATIONS: fever, cough. TECHNIQUE: One view of the chest was acquired. COMPARISON: [facility], CT, CT ANGIO CHEST PE PROTOCOL, 04/27/2025, 18:03. [facility], CR, XR CHEST 1V, 02/23/2025, 9:57. FINDINGS: Surgical changes and devices: None. Lungs and pleura: An incomplete inspiratory result is noted, causing a crowded appearance to the lung markings. No focal infiltrates are seen. No pneumothorax or significant pleural effusions are seen. Mediastinum: Mediastinal contours appear normal. Heart size is normal. Bones and chest wall: No suspicious bony lesions. Overlying soft tissues appear unremarkable. IMPRESSION: Low lung volumes, without an acute abnormality seen by plain film. Dictated by: Ventura Denise M.D. on 05/01/2025 at 13:11 Approved by: Ventura Denise M.D. on 05/01/2025 at 13:12
--- NOTE | 2025-05-01 15:58 | CM.DPC ---
DCP COnt: Per MD, pt remains on Librium taper and able to participate in Goals of Care discussion this morning regarding his spouse and changing spouse to comfort care. PT on hold for today. SW observed pt in w/c bedside with spouse in afternoon and groggy. SW met bedside with pt and he had to be leslie'd into bed and able to answer questions but mostly kept eyes closed and slow in responses but tearful when asked about his spouse. Pt appears to be in grief, partial denial, discussed brief guilt and likely contributing to his somnolence today. Plan: SW to continue to follow for onging medical management and further PT and more indepth discussion with pt regarding his own d/c plan as concerns with pt's emotional state once spouse passes away. REE Carvalho
[2025-05-01 16:00] VITALS: BP 121/64; PULSE 101; RESP 18; TEMP 36.7; O2SAT 98
[2025-05-01 20:25] VITALS: BP 144/63; RESP 19; TEMP 37.7; O2SAT 96
[2025-05-01 22:53] VITALS: TEMP 37.7
--- NOTE | 2025-05-01 23:33 | PC.NURSE ---
Pt in agreement for a straight catheter. Explained the process and why it is ordered. Pt verbalized understanding. When attempting to place catheter, pt stated Stop, that is painful. I educated patient the process and that we need a UA as well, but patient stated it is painful, i don't want it. Will continue to monitor, call light in reach
[2025-05-02 02:02] LABS: Appearance Urine UA CLOUDY; Bilirubin Urine UA 1+ (NEGATIVE); Color Urine UA YELLOW; Glucose Urine UA NEGATIVE (Negative); Ketones Urine UA TRACE (NEGATIVE); Leukocyte Esterase Urine UA 2+ (NEGATIVE); Nitrite Urine UA POSITIVE (Negative); Occult Blood Urine UA TRACE-INTACT (Negative); Protein Urine UA 2+ (Negative); Specific Gravity Urine UA <=1.005 (1.000-1.035); pH Urine UA 8.5 (4.5-8.0)
[2025-05-02 02:14] LABS: Bacteria Urine Many (>30); Culture Indicated Urine Specimen Cultured; Ictotest Urine Negative (Negative); RBC Urine 0-1/HPF (0-5/HPF); Squamous Epithelial Cell Urine 0-1 /HPF (0-5/HPF); Urine Volume 10mL (spun); WBC Urine 1-5/HPF (0-5/HPF)
[2025-05-02 05:12] LABS: Add Manual Diff / Slide Review NO; Basophils Absolute Auto 0 /uL (0-100); Basophils Percent Auto 0.2 % (0-2); Eosinophils Absolute Auto 0 /uL (0-450); Eosinophils Percent Auto 1.3 % (2-4); Hematocrit 28.2 % (41-53); Hemoglobin 9.6 g/dL (13.5-17.5); Lymphocytes Absolute Auto 600 /uL (1100-4500); Lymphocytes Percent Auto 17.5 % (25-40); Mean Corpuscular HGB Conc 34.1 % (30-36); Mean Corpuscular Hemoglobin 27.1 PG (26-34); Mean Corpuscular Volume 79.5 fL (80-100); Monocytes Absolute Auto 600 /uL (0-900); Monocytes Percent Auto 17.8 % (3-14); Neutrophils Absolute Auto 2300 /uL (1500-7000); Neutrophils Percent Auto 63.2 % (50-75); Platelet Count 62 X10^3/uL (150-400); Red Blood Cell Count 3.55 X10^6/uL (4.5-5.9); Red Cell Distribution Width 19.2 % (11.6-14.8); White Blood Cell Count 3.6 X10^3/uL (4.5-11.0)
[2025-05-02 05:29] LABS: BUN Creatinine Ratio 18.6 (6-22); Blood Urea Nitrogen 19 mg/dL (9-20); Calcium 8.7 mg/dL (8.4-10.2); Carbon Dioxide 24 mmol/L (22-32); Chloride 98 mmol/L (98-107); Estimated Glomerular Filt Rate > 60 mL/min (>60); Glucose 110 mg/dL (70-99); HEMOLYSIS < 15 (0-50); Magnesium 1.8 mg/dL (1.6-2.3); Potassium 3.5 mmol/L (3.4-5.1); Sodium 132 mmol/L (137-145)
[2025-05-02 06:30] VITALS: BP 124/67; PULSE 109; RESP 19; TEMP 37.1; O2SAT 100
--- NOTE | 2025-05-02 09:46 | PT-IP ANOTE ---
PT checks in on pt. Pt with nsg and tearful and not opening eyes after learning that last night. Team agrees to hold therapies at this time. Will likely con't efforts next date.
--- NOTE | 2025-05-02 09:47 | OT.IPNOTE ---
Pt in bed with nsg following ADLs. Pt in bed tearful and not opening his eyes after getting news of his 's passing. Pt unable to purposefully participate in OT at this time, team agree to put pt on hold at this time. OT will re-attempt if schedule permits and he becomes able to functionally participate.
[2025-05-02] MEDS: DOXYCYCLINE HYCLATE 100 MG TABLET 50 MG PO ×2 (09:53→21:21)
[2025-05-02] MEDS: chlordiazePOXIDE 25 MG CAPSULE 50 MG PO (09:53)
[2025-05-02] MEDS: SPIRONOLACTONE 25 MG TABLET PO (09:53)
[2025-05-02] MEDS: THIAMINE 100 MG TABLET PO (09:53)
[2025-05-02] MEDS: FOLIC ACID 1 MG TABLET PO (09:53)
[2025-05-02] MEDS: FUROSEMIDE 40 MG TABLET PO (09:54)
[2025-05-02] MEDS: POTASSIUM CHLORIDE 20 MEQ TAB 40 MEQ PO (10:09)
--- NOTE | 2025-05-02 11:06 | DIET.CONS ---
Dietary Consultation Note Admission Date: 04/23/2025 15:26 Assessment: 49 y M admitted for severe alcohol intoxication and suicidal ideation. Dietitian screened for LOS, hx moderate chronic protein calorie malnutrition. Pt discussed in rounds, EMR reviewed, and spoke to RN. Pt unlikely to be able to participate in assessment d/t recent passing of . Pt not eating recently per RN d/t news of . Per PO intake recorded, pt was eating 75-100% PO up until 04/27. Before then, ER reports pt was drinking 6-12 drinks per day and not eating. Ht: 177.8 cm Wt: 97.5 kg BMI: 28.7 UBW: 90.718 kg on 02/23/25 Last BM: 04/29/25 (04/29/25 01:00) MNA: 11 Luis Score: 15 Diet: 04/24/25 Breakfast General (Regular) Diet Diet Modifications: Food Texture: Level 7 - Regular Liquid Consistency: Level 0 - Thin Labs: RBC 3.55 X10^6/uL (4.5-5.9) L 05/02/25 04:28 Hgb 9.6 g/dL (13.5-17.5) L 05/02/25 04:28 Hct 28.2 % (41-53) L 05/02/25 04:28 Creatinine 1.02 mg/dL (0.66-1.25) 05/02/25 04:28 Hemoglobin A1c 5.8 % (4.0-6.0) 04/24/25 04:10 Nutrition Diagnosis: Inadequate oral intake r/t decrease in appetite and alcohol abuse aeb little to no PO intakes last several days and excessive alcohol intake prior to admission Interventions: encourage meals as tolerated Monitoring/Evaluations: PO intakes Electronically Signed by: Pretty Robledo 05/02/25 11:06 Clinical Dietitian [id number] [place] [address]
--- NOTE | 2025-05-02 12:18 | PC.NURSE ---
Addendum entered by Angelique Salazar R.N. 05/02/25 15:54: Patient just had a fall to the floor trying to get out of bed to void. He was lying on his r.side. No injuries noted at this time, he states that he did not hit his head. Patient agitated but easily calmed down. Back to bed with leslie lift. Lying supine, urinal in place. aware of fall. Addendum entered by Angelique Salazar R.N. 05/02/25 15:18: Patients bottom is red but blanchable. Cream applied to area's. He is resting and has not eaten well in the last two days. Original Note: Patient is emotional today, as his this morning. His mom called and he listened to her talk but did not say much. He was incontinent of a large amount of urine, and is using the urinal now. Unable to get out of bed as he is to weak. aware of patients u/a and positive nitrites. Patients urine has a foul smell. He is still sleeping alot. He took most of his meds but refused his mvi and lactulose. Resting now. Rash to face and head looking somewhat better.
[2025-05-02 14:00] VITALS: BP 124/63; PULSE 94; RESP 16; TEMP 36.7; O2SAT 99
--- NOTE | 2025-05-02 14:52 | CM.DPC ---
DCP Cont: Per Chest CT, no signs of abnormalities or aspiration. Per MD, will stop Librium taper today and urine came back UTI+ and will likely start IV-Abx today and possible MRI to r/o stroke if pt continues to be less responsive with increased need for assist. Pt currently with higher ammonia as well. Per PT/OT, pt tearful and sleepy and not interested in therapies today. SW and RN met bedside with pt and RN confirms that pt has not really eaten anything for a couple days. RN and SW attempted to get pt to fully open his eyes and pt only opens eyes a slit and able to answer questions but very slowly. SW discussed concern for patient that he has needed leslie and assist with ADLs and has declined in health over the past few days as he had been walking with PT using a FWW and now leslie. Inquired about pt's grief from spouse passing away this morning and pt tearful but states men don't cry. SW encouraged pt to feel his grief and allow the tears to flow and inquired if SW could try to call his closest male friend that lives out of state for support but pt states I don't want to put all this shit on someone. Pt confirms that he has no current interest in eating/strengthening/improving and just feels very tired. Pt passively expressed wish to give up and also drink alcohol to not deal with his grief and stressors. Encouraged pt to work on improvement to discharge the hospital in order to participate in 's arrangements as pt very tearful she was picked up by home and he isn't able to see her right now. Earlier today, made referral to [facility] as well in case SNF needed at d/c and they are aware he also has [facility] ([facility] previously accepted spouse on [facility] before she ). [facility] and [facility] have referrals as well. Plan: SW to follow for tx of UTI and high ammonia to determine if pt will clear more and pt's ongoing grief and denial contributing to his lethargy and lack of motivation for improvement. Pt with passive suicidal ideation from grief. REE Carvalho
[2025-05-02] MEDS: LACTULOSE 20 GM/30 ML SOLUTION PO ×2 (17:49→21:21)
--- NOTE | 2025-05-02 18:24 | PM.PN.1 ---
Subjective Subjective Date Patient Seen: 05/02/25 Interval history: Chief complaint: Acute severe alcohol withdrawal History of present illness: 49 yo male with history of alcohol dependence with withdrawal and osteomyelitis secondary to ESBL E coli in the setting of right foot neuropathic ulcer, hepatosplenomegaly, portal hypertension, peripheral neuropathy and hypertension who presented to the emergency department with severe alcohol intoxication and suicidal ideation this morning. At the time of arrival at 7:45 a.m. this morning, his alcohol level was 0.504. He was quite agitated and voicing suicidal ideation. He showed up with his [id number] who was also intoxicated. She had reported drinking with him to keep him company. He had significant agitation requiring treatment with IV Benadryl, Haldol, and diazepam. He also received IV fluids and thiamine. The plan was to monitor him for 4-5 hours to see if as his alcohol level decreased whether his suicidal ideation improved. Unfortunately, he became agitated again in the emergency department later in the day and required additional IV diazepam. His ammonia level was elevated at 66. Lactulose was ordered but could not be given due to his agitation. Due to his ongoing agitation and concern for withdrawal, admission was recommended. Patient tells me he has been drinking 6-12 high alcohol content large beers daily. He has not been eating. He has been drinking some water. He has been having dry heaves but no active emesis or hematemesis. He has been falling and hitting his head, but does not have any abrasions. He denies loss of consciousness. He is very down on himself due to his alcohol dependence. He denies active suicidal ideation at this time. Repeat alcohol level was done and was 0.386. On arrival to the intensive care unit, he is extremely tremulous, but alert and oriented. He is cooperative and pleasant. Hospital course: 04/24-05/02: Patient detoxified but with a slow recovery of function was also admitted into the hospital who while hospitalized today Review of systems: No fevers or chills No nausea vomiting diarrhea No chest pain Physical exam: Disheveled remorseful emotional male appearing in poor health HEENT poor dentition unremarkable otherwise Heart rate and rhythm regular no murmurs new line lungs clear to auscultation new line abdomen obese distended but nontender 3+ bipedal edema 5th metatarsal foot ulcer which does not appear to be full-thickness, there was no significant proximal erythema or significant fluctuance Assessment and plan: Alcohol intoxication alcoholic hepatitis hepatic encephalopathy severe depression and probable hepatic encephalopathy and Wernicke-Korsakoff syndrome Stop all intoxicants Scheduled lactulose Disposition to acute rehab Empiric Cipro for possible Proteus UTI Code status full I spent 35 minutes evaluation consultation with other physicians Health professionals in the management of this patient Exam Vital Signs (past 8 hours): - 05/02/25 14:00 Temperature 98.1 F Pulse Rate 94 H Respiratory Rate 16 Blood Pressure 124/63 Pulse Oximetry 99 Fraction of Inspired Oxygen 35 Oxygen Delivery Method Room Air Oxygen Flow Rate 0 Objective Labs 05/02/25 04:28 05/02/25 04:28 Labs: Laboratory Results - last 24 hr 05/02/25 05/02/25 01:50 04:28 WBC 3.6 L RBC 3.55 L Hgb 9.6 L Hct 28.2 L MCV 79.5 L MCH 27.1 MCHC 34.1 RDW 19.2 H Plt Count 62 L Neut % (Auto) 63.2 Lymph % (Auto) 17.5 L [place] % (Auto) 17.8 H Eos % (Auto) 1.3 L Baso % (Auto) 0.2 Neut # (Auto) 2300 Lymph # (Auto) 600 L [place] # (Auto) 600 Eos # (Auto) 0 Baso # (Auto) 0 Sodium 132 L Potassium 3.5 Chloride 98 Carbon Dioxide 24 BUN 19 Creatinine 1.02 Estimated GFR > 60 BUN/Creatinine Ratio 18.6 Glucose 110 H Calcium 8.7 Magnesium 1.8 Urine Color Yellow Urine Appearance Cloudy Urine pH 8.5 H Ur Specific [place] <=1.005 Urine Protein 2+ H Urine Glucose (UA) Negative Urine Ketones Trace H Urine Occult Blood Trace-intact Urine Nitrate Positive H Urine Bilirubin 1+ H Ur Bilirubin Confirm Negative Urine Urobilinogen 4.0 H Ur Leukocyte Esterase 2+ H Urine RBC 0-1/hpf Urine WBC 1-5/hpf Ur Squamous Epith Cells 0-1 /hpf Urine Bacteria Many (>30) H Ur Culture Indicated? Specimen cultured Vol Urine Centrifuged 10ml (spun) [facility] Medical History Hepatosplenomegaly Portal hypertension Hepatosplenomegaly Foot osteomyelitis, right Neuropathic foot ulcer Decreased libido Erectile dysfunction Alcohol abuse (~2017) Low back pain (Unknown) Polyneuropathy (Unknown) Acne (Unknown) Hypertension (2004) Essential hypertension (09/12/16) Surgical History H/O surgical amputation of finger Hx of cholecystectomy (2001) Family History Grandmother Mental health problem Grandfather Cancer Grandmother Cancer Mother History of back problems Father Amputation leg, bilat Social History household members: spouse and family Tobacco: How many years used: 1 Smokeless tobacco user: chewing tobacco (many, many years) alcohol intake: current substance use type: does not use Assessment & Plan Time-Based Coding :: [TOTAL MINUTES] spent with patient and on the chart (including review of chart, obtaining history, exam, reviewing outside data, placing orders, documenting exam and treatment plan, and counseling patient) on [DATE].
[2025-05-02 20:00] VITALS: BP 122/61; PULSE 91; RESP 17; TEMP 36.6; O2SAT 97
[2025-05-02] MEDS: PREGABALIN 75 MG CAPSULE PO (21:22)
[2025-05-02] MEDS: CIPROFLOXACIN 250 MG TABLET 500 MG PO (21:22)
[2025-05-03] MEDS: PANTOPRAZOLE DR 40 MG TABLET PO (06:14)
[2025-05-03] MEDS: CIPROFLOXACIN 250 MG TABLET 500 MG PO ×2 (06:14→20:28)
[2025-05-03 06:30] LABS: Add Manual Diff / Slide Review NO; BUN Creatinine Ratio 19.5 (6-22); Basophils Absolute Auto 0 /uL (0-100); Basophils Percent Auto 0.8 % (0-2); Blood Urea Nitrogen 15 mg/dL (9-20); Calcium 8.6 mg/dL (8.4-10.2); Carbon Dioxide 21 mmol/L (22-32); Chloride 103 mmol/L (98-107); Eosinophils Absolute Auto 100 /uL (0-450); Eosinophils Percent Auto 2.2 % (2-4); Estimated Glomerular Filt Rate > 60 mL/min (>60); Glucose 111 mg/dL (70-99); HEMOLYSIS < 15 (0-50); Hematocrit 28.1 % (41-53); Hemoglobin 9.5 g/dL (13.5-17.5); Lymphocytes Absolute Auto 900 /uL (1100-4500); Lymphocytes Percent Auto 20.8 % (25-40); Magnesium 1.8 mg/dL (1.6-2.3); Mean Corpuscular HGB Conc 33.9 % (30-36); Mean Corpuscular Hemoglobin 26.9 PG (26-34); Mean Corpuscular Volume 79.5 fL (80-100); Monocytes Absolute Auto 1000 /uL (0-900); Monocytes Percent Auto 22.9 % (3-14); Neutrophils Absolute Auto 2300 /uL (1500-7000); Neutrophils Percent Auto 53.3 % (50-75); Platelet Count 73 X10^3/uL (150-400); Potassium 3.4 mmol/L (3.4-5.1); Red Blood Cell Count 3.53 X10^6/uL (4.5-5.9); Red Cell Distribution Width 18.8 % (11.6-14.8); Sodium 134 mmol/L (137-145); White Blood Cell Count 4.3 X10^3/uL (4.5-11.0)
[2025-05-03 08:00] VITALS: BP 109/62; PULSE 86; RESP 21; TEMP 36.3; O2SAT 100
[2025-05-03] MEDS: DOXYCYCLINE HYCLATE 100 MG TABLET 50 MG PO ×2 (08:20→20:27)
[2025-05-03] MEDS: FOLIC ACID 1 MG TABLET PO (08:20)
[2025-05-03] MEDS: MULTIVITAMIN 1 TABLET 1 TAB PO (08:21)
[2025-05-03] MEDS: LACTULOSE 20 GM/30 ML SOLUTION PO ×3 (08:21→20:27)
[2025-05-03] MEDS: FUROSEMIDE 40 MG TABLET PO (08:21)
[2025-05-03] MEDS: SPIRONOLACTONE 25 MG TABLET PO (08:21)
[2025-05-03] MEDS: THIAMINE 100 MG TABLET PO (08:21)
[2025-05-03] MEDS: NICOTINE 21 MG PATCH TOP (08:34)
--- NOTE | 2025-05-03 11:20 | PC.NURSE ---
late entry in EMAR for all medications given during meditech downtime
--- NOTE | 2025-05-03 11:34 | OT.IPNOTE ---
Pt just got back into bed from using the BSC with nursing and tired. To check on the pt later as time census allows.
--- NOTE | 2025-05-03 12:15 | CM.DPC ---
DCP Cont. Reviewed EMR and team rounds for pt's status updates. Met with pt at bedside to discuss discharge planning needs. Pt had told the Hospitalist earlier this am that he was going home today. [employer] met with him and discussed his intention, and reiterated that he cannot walk, can barely stand, and how was he planning to get into his house? He replied wheelchair. He does not have a wheelchair. [employer] pointed out that he has stairs to get into the house, he became angry, stating the doctor and all of these people are not my warden, I can go home if I want. [employer] emphasized that he has no one to care for him at home, cannot even get to the bathroom by himself, and that this is not a safe discharge plan. [employer] then told him that we will not be paying for a taxi to get him home, since it's against medical advice and unsafe. [employer] told him he would need to arrange and pay for his own transportation if he intends to go home, there is also no running water at his house right now. [employer] explained that [facility] was reviewing for his rehab stay, and we should know more later today if he is accepted. He did not respond. Plan is for PT to work with him later this afternoon. Left message for [facility] re: status of Zheng stephenson pending.
--- NOTE | 2025-05-03 14:14 | OT.IP.TRT ---
Current Diagnoses Alcohol dependence with withdrawal delirium (04/23/25) Occupational Therapy Treatment Note M2 OT-IP Current Condition Start: 04/25/25 15:38 Freq: Status: Active Protocol: Document 04/25/25 15:39 CGR (Rec: 04/25/25 15:52 CGR Desktop) Occupational Therapy Current Condition Current Condition Evaluation Date 04/25/25 Treatment Diagnosis SI, ETOH Diagnosis Onset Date 04/23/25 M3 OT- IP Subjective and Pain Start: 04/25/25 15:38 Freq: Status: Active Protocol: Document 05/03/25 13:30 CCC (Rec: 05/03/25 15:37 CCC Desktop) OT- Subjective Occupational Therapy Visit Type Type Treatment Note Visit Start Time 13:30 Visit Stop Time 14:14 Occupational Therapy Visit Comments Patient Comments Pt agreed to get up out of bed to brush his teeth. Pt insistent on going home to see his cats. Pt's nurse able to talk and console pt. Patient/Caregiver TO go home. I want to check out today. Goals OT Pain Assessment Pain When Pain Assessed At Rest Pain Present Pain Present Pain Reported Location Generalized Description [place] M4 OT- IP ADL's Start: 04/25/25 15:38 Freq: Status: Active Protocol: Document 05/03/25 13:30 CCC (Rec: 05/03/25 15:37 [facility] Desktop) OT [id number] Comments OT Self-Feeding Not at meal time Comments OT ADL-Grooming General Evaluation Grooming Ability Standby Assistance Comments OT Grooming Comments Pt able to stand with FWW and then tiring and having to sit down to complete combing his hair. OT ADL-Oral Care General Eval Oral Care Ability Standby Assistance Comments Oral Care Comments Increased time for needs and heavily leans on the counter for support. OT ADL-Dressing General Eval Lower Body Dressing Standby Assistance Ability Comments OT Dressing Comments Pt able to arnel his socks on with increased time while seated in bed. OT ADL-Toileting Comments OT Toileting Not performed. Comments OT ADL-Bathing Comments OT Bathing Comments Not performed. M5 OT- IP IADL's Start: 04/25/25 15:38 Freq: Status: Active Protocol: Document 04/25/25 15:39 CGR (Rec: 04/25/25 15:52 CGR Desktop) OT-Instrumental Activities of Daily Living Deficits IADL Deficits Deficits Identified Home Safety Awareness Awareness of Need Decreased Awareness for Assistance at Home Ability to Problem Able to Problem Solve Solve Emergency Situations Medication Management Medication No Deficits Identified Management Money Management Money Management No Deficits Identified Meal Preparation Meal Preparation No Deficits Identified Non Ferrous Material Handler Non Ferrous Material Handler No Deficits Identified Driving Driving Comments 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 Pt states he feels that he is 90% back to his baseline needs. Pt needing vc for overall safety awareness. M7 OT- IP Mobility and Balance Start: 04/25/25 15:38 Freq: Status: Active Protocol: Document 05/03/25 13:30 [facility] (Rec: 05/03/25 15:37 [facility] Desktop) OT- Bed Mobility Assessment Supine to Sit Supine to Sit Assist Independent Scooting Scooting to Edge of Independent Bed Scooting Up and Down Independent in Bed OT-Transfer Assessment Sit to and From Stand Sit to and from Standby Assistance,Minimal Assistance Stand Transfers Transfer Ability Standby Assistance Technique Transfer Destination Bed Transfer Technique Stand Step Pivot Devices Transfer Assistive Gait Belt,Front Wheeled Walker Devices Comments Mobility Comments VC to push up from the bed and BSC armrest when coming to stand and also to be sure to reach back when sitting down. OT- Balance Assessment Sitting Balance and Reactions Static Sitting Good Balance Ability Dynamic Sitting Fair Balance Ability Standing Balance and Reactions Static Standing Fair Balance Ability Dynamic Standing Fair Balance Ability M8 OT- IP Objective Assessments Start: 04/25/25 15:38 Freq: Status: Active Protocol: Document 04/25/25 15:39 CGR (Rec: 04/25/25 15:52 CGR Desktop) OT Gross Range of Motion Upper Extremity Range of Motion Assessment Within Functional Limits OT Strength Upper Extremity Strength Assessment Within Functional Limits Comments Strength Comments grossly 4/5 OT- Coordination Assessment Upper Extremity Finger to Nose Test Within Functional Limits Finger Tapping Test Within Functional Limits OT-Muscle Tone Assessment Muscle Tone WNL Yes OT Sensation Assessment Edema Edema Absent M9 OT- IP Assessment and Plan Start: 04/25/25 15:38 Freq: Status: Active Protocol: Document 05/03/25 13:30 [facility] (Rec: 05/03/25 15:37 [facility] Desktop) OT Summary Assessment and Plan Potential Rehabilitation Excellent Potential Analytic Complexity Low at Evaluation Summary OT Impairments Balance,Functional Cognition,Functional Mobility, Grooming,Dressing,Toileting,Bathing,Toilet Transfers, Shower Transfers,Activity Tolerance Progress Towards Progressing Toward Goals Goals Assessment Summary Pt able to tolerate bed mobility and walking to the sink for ADL needs. Pt states he feels that he is 90% back to his baseline. Pt states his neighbor can assist with some needs. Pt if going home will benefit from assist at home and home health. Pt would however benefit from inpt ETOH rehab. Pt is insistent to go home to be with his cats. Goals Dressing Goal Independent,Experimental Rocketsled Mechanic,Sock Aid Toileting Goal Independent Bathing Goal Independent Toilet Transfer Goal Independent Shower Transfer Goal Independent Days to Meet Goals 6 Frequency of Treatment Other frequency 5x per week Treatment Plan OT Treatment Plan ADL Training,Functional Mobility,Patient/Family Education,Discharge Planning Discharge Recommendations Other Discharge inpatient ETOH rehab if able to qualify otherwise pt Recommendations will need 23/06 assist available and home health. Transportation Needs Private Vehicle at Discharge
--- NOTE | 2025-05-03 14:45 | P.PN_ITS ---
Subjective Subjective Date Patient Seen: 05/03/25 Interval history: Chief complaint: Acute severe alcohol withdrawal History of present illness: 49 yo male with history of alcohol dependence with withdrawal and osteomyelitis secondary to ESBL E coli in the setting of right foot neuropathic ulcer, hepatosplenomegaly, portal hypertension, peripheral neuropathy and hypertension who presented to the emergency department with severe alcohol intoxication and suicidal ideation this morning. At the time of arrival at 7:45 a.m. this morning, his alcohol level was 0.504. He was quite agitated and voicing suicidal ideation. He showed up with his [id number] who was also intoxicated. She had reported drinking with him to keep him company. He had significant agitation requiring treatment with IV Benadryl, Haldol, and diazepam. He also received IV fluids and thiamine. The plan was to monitor him for 4-5 hours to see if as his alcohol level decreased whether his suicidal ideation improved. Unfortunately, he became agitated again in the emergency department later in the day and required additional IV diazepam. His ammonia level was elevated at 66. Lactulose was ordered but could not be given due to his agitation. Due to his ongoing agitation and concern for withdrawal, admission was recommended. Patient tells me he has been drinking 6-12 high alcohol content large beers daily. He has not been eating. He has been drinking some water. He has been having dry heaves but no active emesis or hematemesis. He has been falling and hitting his head, but does not have any abrasions. He denies loss of consciousness. He is very down on himself due to his alcohol dependence. He denies active suicidal ideation at this time. Repeat alcohol level was done and was 0.386. On arrival to the intensive care unit, he is extremely tremulous, but alert and oriented. He is cooperative and pleasant. Hospital course: 04/24-05/02: Patient detoxified but with a slow recovery of function was also admitted into the hospital who while hospitalized today 05/03: Patient has been off of CIWA protocol for 48 hours without any signs of withdrawal is less lethargic today reports irritation with multiple issues insists that he wants to go home but acknowledges that he can not stand or get out of bed and that this would not be workable Review of systems: No fevers or chills No nausea vomiting diarrhea No chest pain Physical exam: Disheveled remorseful emotional male appearing in poor health HEENT poor dentition unremarkable otherwise Heart rate and rhythm regular no murmurs new line lungs clear to auscultation new line abdomen obese distended but nontender 3+ bipedal edema 5th metatarsal foot ulcer which does not appear to be full-thickness, there was no significant proximal erythema or significant fluctuance Assessment and plan: Alcohol intoxication alcoholic hepatitis hepatic encephalopathy severe depression and probable hepatic encephalopathy and Wernicke-Korsakoff syndrome * Stop all intoxicants * Has been off CIWA protocol without any signs of withdrawal * Scheduled lactulose * Disposition to acute rehab * Empiric Cipro for possible Proteus UTI Code status full I spent 35 minutes evaluation consultation with other physicians Health professionals in the management of this patient Exam Vital Signs (past 8 hours): - 05/03/25 08:00 Temperature 97.3 F L Pulse Rate 86 Respiratory Rate 21 Blood Pressure 109/62 Pulse Oximetry 100 Fraction of Inspired Oxygen 35 Oxygen Delivery Method Room Air Oxygen Flow Rate 0 Objective Labs 05/03/25 04:14 05/03/25 04:14 Labs: Laboratory Results - last 24 hr 05/03/25 04:14 WBC 4.3 L RBC 3.53 L Hgb 9.5 L Hct 28.1 L MCV 79.5 L MCH 26.9 MCHC 33.9 RDW 18.8 H Plt Count 73 L Neut % (Auto) 53.3 Lymph % (Auto) 20.8 L [place] % (Auto) 22.9 H Eos % (Auto) 2.2 Baso % (Auto) 0.8 Neut # (Auto) 2300 Lymph # (Auto) 900 L [place] # (Auto) 1000 H Eos # (Auto) 100 Baso # (Auto) 0 Sodium 134 L Potassium 3.4 Chloride 103 Carbon Dioxide 21 L BUN 15 Creatinine 0.77 Estimated GFR > 60 BUN/Creatinine Ratio 19.5 Glucose 111 H Calcium 8.6 Magnesium 1.8 PFSH Medical History Hepatosplenomegaly Portal hypertension Hepatosplenomegaly Foot osteomyelitis, right Neuropathic foot ulcer Decreased libido Erectile dysfunction Alcohol abuse (~2016) Low back pain (Unknown) Polyneuropathy (Unknown) Acne (Unknown) Hypertension (2004) Essential hypertension (09/12/16) Surgical History H/O surgical amputation of finger Hx of cholecystectomy (2001) Family History Grandmother Mental health problem Grandfather Cancer Grandmother Cancer Mother History of back problems Father Amputation leg, bilat Social History household members: spouse and family Tobacco: How many years used: 1 Smokeless tobacco user: chewing tobacco (many, many years) alcohol intake: current substance use type: does not use Assessment & Plan Time-Based Coding :: [TOTAL MINUTES] spent with patient and on the chart (including review of chart, obtaining history, exam, reviewing outside data, placing orders, documenting exam and treatment plan, and counseling patient) on [DATE].
--- NOTE | 2025-05-03 15:05 | PT.IPTN ---
Current Diagnoses Alcohol dependence with withdrawal delirium (04/23/25) Physical Therapy Treatment Note M2 PT-IP Current Condition Start: 04/25/25 12:09 Freq: NEEDED Status: Active Protocol: Document 04/25/25 12:10 MB (Rec: 04/25/25 12:49 MB Desktop) Physical Therapy Current Condition Current Condition Evaluation Date 04/25/25 Treatment Diagnosis SI M3 PT-IP Subjective Start: 04/25/25 12:09 Freq: NEEDED Status: Active Protocol: Document 05/03/25 15:05 AB (Rec: 05/03/25 18:02 AB [id number]) Subjective Physical Therapy Visit Type Type Treatment Note Visit Start Time 15:05 Visit Stop Time 15:40 Number of DISCHARGE RN Visits 0 Physical Therapy Visit Comments Patient Comments agreeable to do PT M4 PT-IP Mobility and Gait Start: 04/25/25 12:09 Freq: NEEDED Status: Active Protocol: Document 05/03/25 15:05 AB (Rec: 05/03/25 18:02 AB [id number]) PT-Bed Mobility Assessment Supine to Sit Supine to Sit Maximum Assistance Sit to Supine Sit to Supine Moderate Assistance PT-Transfer Assessment Sit to and From Stand Sit to and from Moderate Assistance,1 Person Assistance,Use of Upper Stand Extremities Equipment Transfer Assistive Gait Belt,Front Wheeled Walker Device Orthotic/Prosthetic No Devices or Brace: Comments Mobility Comments pt in bed and asleep. woke pt up and agreed to do PT. completed supine to sit max A and max cues. pt needing increase time to complete all tasks and needs increase rest breaks. sit to stand from EOB mod A and max cues. required 2 attempts to stand. pt ambulated in room using FWW ~ 50 ft mod A and max cues. presents with ataxic gait and very slow paced. pt tremulous during movement. pt requested to go back to bed. sit to supine mod A with LE elevation to bed. positioned pt in bed. call light and table placed within reach. Gait Assessment Gait Gait Assistance Moderate Assistance,1 Person Assist Required: Distance (Feet) 50 Able to Maintain Yes Weight Bearing Status During Gait Assistive Devices Assistive Device Gait Belt,Front Wheeled Walker Orthotic/Prosthetic No Devices or Brace: Gait Deviations General Gait Pattern Ataxic,Decreased Stride Length,Decreased Feet Clearance ,Step-to Gait Factors Limiting Gait Function Factors Limiting Decreased Activity Tolerance,Decreased Strength,Limited Gait Function Range of Motion,Pain,Poor Balance,Poor Safety Awareness M5 PT-IP Objective Assessments Start: 04/25/25 12:09 Freq: NEEDED Status: Active Protocol: Document 04/25/25 12:10 MB (Rec: 04/25/25 12:49 MB Desktop) Orientation Orientation/Cognition Level of Alertness Alert Orientation Name,Age,Birthday,Month,Date,Year,Place,Situation Language Function No Deficits Noted Ability Safety Awareness Decreased Safety Awareness Memory Description No Deficits Noted Gross Range of Motion Upper Extremity ROM Impairments Defer to OT Lower Extremity ROM Assessment Bilaterally Impaired Impairments R foot is swollen, B LEs appear to have cellulitis, multiple skin wounds, limited B ankle movement Strength Lower Extremity Strength Assessment Bilaterally Impaired Comments Strength Comments Did not MMT given skin issues and LEs are functional Coordination Assessment Gross Coordination Gross Coordination Impaired Sensation Assessment Sensation Gross Sensation Right LE Impaired,Left LE Impaired M6 PT-IP Treatment Start: 04/25/25 12:09 Freq: NEEDED Status: Active Protocol: Document 05/03/25 15:05 AB (Rec: 05/03/25 18:02 AB [id number]) Physical Therapy Treatment Education Education Provided Safety M7 PT-IP Assessment and Plan Start: 04/25/25 12:09 Freq: NEEDED Status: Active Protocol: Document 05/03/25 15:05 AB (Rec: 05/03/25 18:02 AB [id number]) PT Summary Assessment and Plan Potential Rehabilitation Fair Potential Summary Impairments Pain,ROM,Strength,Balance,Coordination,Sensation,Tone, Cognition,Bed Mobility,Transfers,Gait,Activity Tolerance Progress Towards Slow Progress due to Medical Issues,Slow Progress due Goals to Activity Tolerance,Slow Progress - Other Assessment Summary pt requiring max A for supine to sit and mod A for sit to supine, mod A for transfers and ambulation using FWW ~ 50 ft. presents with ataxic gait and needs cues with all tasks. pt cooperative during PT session. pt will benefit from SNF rehab to improve mobility independence . Goals Bed Mobility Goal Independent Transfer Goal Independent,Front Wheeled Walker,Four Wheeled Walker Gait Goal Independent,Front Wheel Walker,Four Wheel Walker Gait Distance 75 Other Goals Pt will ascend and descend 4 steps with left rail to allow safe home entrance. Days to Meet Goals 5 Frequency of Treatment Frequency Of Once a Day Treatment Treatment Plan Physical Therapy Bed Mobility Training,Transfer Training,Gait Training, Treatment Plan Therapeutic Exercise,Balance Retraining,Discharge Planning,Neuromuscular Re-ed,Coordination Retraining Other Recommend limiting gait distance to functional Recommendations and distances as needed given foot wounds Next Treatment Focus Precautions Other Precautions fall Recommendations To Nursing Amount of Assist 1 Person Assist Needed Discharge Recommendations PT Discharge SNF Rehab Recommendations Transportation Needs Private Vehicle,Wheelchair/Cabulance at Discharge - PT assist 1
[2025-05-03] MEDS: POTASSIUM CHLORIDE 20 MEQ TAB 40 MEQ PO (15:38)
[2025-05-03 16:00] VITALS: BP 111/64; PULSE 83; RESP 18; TEMP 35.9; O2SAT 100
[2025-05-03] MEDS: ACETAMINOPHEN SUSP 650 MG/20.3 ML UDC PO (16:16)
[2025-05-03] MEDS: PREGABALIN 75 MG CAPSULE PO ×2 (16:17→20:27)
[2025-05-03 20:00] VITALS: BP 104/60; PULSE 79; RESP 12; TEMP 36.1; O2SAT 100
[2025-05-04 04:00] VITALS: BP 106/69; PULSE 79; RESP 18; TEMP 36.4; O2SAT 98
[2025-05-04] MEDS: PANTOPRAZOLE DR 40 MG TABLET PO (06:18)
[2025-05-04] MEDS: CIPROFLOXACIN 250 MG TABLET 500 MG PO (06:18)
[2025-05-04] MEDS: LACTULOSE 20 GM/30 ML SOLUTION PO (08:45)
[2025-05-04] MEDS: NICOTINE 21 MG PATCH TOP (08:45)
[2025-05-04] MEDS: DOXYCYCLINE HYCLATE 100 MG TABLET 50 MG PO (08:46)
[2025-05-04] MEDS: PREGABALIN 75 MG CAPSULE PO (08:46)
[2025-05-04] MEDS: FOLIC ACID 1 MG TABLET PO (08:46)
[2025-05-04] MEDS: FUROSEMIDE 40 MG TABLET PO (08:46)
[2025-05-04] MEDS: MULTIVITAMIN 1 TABLET 1 TAB PO (08:46)
[2025-05-04] MEDS: SPIRONOLACTONE 25 MG TABLET PO (08:46)
[2025-05-04] MEDS: THIAMINE 100 MG TABLET PO (08:46)
[2025-05-04 09:15] LABS: Add Manual Diff / Slide Review NO; Basophils Absolute Auto 0 /uL (0-100); Basophils Percent Auto 0.9 % (0-2); Eosinophils Absolute Auto 100 /uL (0-450); Eosinophils Percent Auto 3.9 % (2-4); Hemoglobin 10.4 g/dL (13.5-17.5); Lymphocytes Absolute Auto 800 /uL (1100-4500); Lymphocytes Percent Auto 21.3 % (25-40); Mean Corpuscular HGB Conc 32.5 % (30-36); Mean Corpuscular Hemoglobin 26.3 PG (26-34); Monocytes Absolute Auto 400 /uL (0-900); Neutrophils Absolute Auto 2300 /uL (1500-7000); Neutrophils Percent Auto 61.9 % (50-75); Platelet Count 93 X10^3/uL (150-400); Red Blood Cell Count 3.96 X10^6/uL (4.5-5.9); Red Cell Distribution Width 18.7 % (11.6-14.8); White Blood Cell Count 3.7 X10^3/uL (4.5-11.0)
[2025-05-04 09:26] LABS: BUN Creatinine Ratio 15.8 (6-22); Blood Urea Nitrogen 12 mg/dL (9-20); Calcium 9.1 mg/dL (8.4-10.2); Carbon Dioxide 21 mmol/L (22-32); Chloride 104 mmol/L (98-107); Estimated Glomerular Filt Rate > 60 mL/min (>60); Glucose 118 mg/dL (70-99); HEMOLYSIS < 15 (0-50); Magnesium 1.8 mg/dL (1.6-2.3); Potassium 3.6 mmol/L (3.4-5.1); Sodium 135 mmol/L (137-145)
--- NOTE | 2025-05-04 12:10 | PT.IPTN ---
Current Diagnoses Alcohol dependence with withdrawal delirium (04/23/25) Physical Therapy Treatment Note M2 PT-IP Current Condition Start: 04/25/25 12:09 Freq: NEEDED Status: Active Protocol: Document 04/25/25 12:10 MB (Rec: 04/25/25 12:49 MB Desktop) Physical Therapy Current Condition Current Condition Evaluation Date 04/25/25 Treatment Diagnosis SI M3 PT-IP Subjective Start: 04/25/25 12:09 Freq: NEEDED Status: Active Protocol: Document 05/04/25 12:10 AB (Rec: 05/04/25 13:02 AB [id number]) Subjective Physical Therapy Visit Type Type Treatment Note Visit Start Time 12:10 Visit Stop Time 12:38 Number of ASSEMBLER TESTER Visits 0 Physical Therapy Visit Comments Patient Comments agreeable to do PT M4 PT-IP Mobility and Gait Start: 04/25/25 12:09 Freq: NEEDED Status: Active Protocol: Document 05/04/25 12:10 AB (Rec: 05/04/25 13:02 AB [id number]) PT-Transfer Assessment Sit to and From Stand Sit to and from Moderate Assistance,1 Person Assistance,Use of Upper Stand Extremities Equipment Transfer Assistive Gait Belt,Front Wheeled Walker Device Orthotic/Prosthetic No Devices or Brace: Gait Assessment Gait Gait Assistance Moderate Assistance,1 Person Assist Required: Distance (Feet) 20 Able to Maintain Yes Weight Bearing Status During Gait Assistive Devices Assistive Device Gait Belt,Front Wheeled Walker Gait Deviations General Gait Pattern Ataxic,Decreased Stride Length,Decreased Feet Clearance Factors Limiting Gait Function Factors Limiting Decreased Activity Tolerance,Decreased Sensation, Gait Function Decreased Strength,Difficulty Following Directions, Incoordination,Limited Range of Motion,Pain,Poor Balance,Poor Safety Awareness Comments Gait Comments pt sitting on the chair and agreeable to do PT. completed sit to stand mod A and ambulated ~ 20 ft using FWW mod A and cues. presents with increase unsteadiness and tremulous during standing compared to yesterday. pt ambulated more in the hallway 8+5 ft using FWW mod A and cues. assisted pt back to his room. ambulated from w/c to chair using FWW ~ 5 ft mod A and max cues. positioned pt in bed. call light and table placed within reach. M5 PT-IP Objective Assessments Start: 04/25/25 12:09 Freq: NEEDED Status: Active Protocol: Document 04/25/25 12:10 MB (Rec: 04/25/25 12:49 MB Desktop) Orientation Orientation/Cognition Level of Alertness Alert Orientation Name,Age,Birthday,Month,Date,Year,Place,Situation Language Function No Deficits Noted Ability Safety Awareness Decreased Safety Awareness Memory Description No Deficits Noted Gross Range of Motion Upper Extremity ROM Impairments Defer to OT Lower Extremity ROM Assessment Bilaterally Impaired Impairments R foot is swollen, B LEs appear to have cellulitis, multiple skin wounds, limited B ankle movement Strength Lower Extremity Strength Assessment Bilaterally Impaired Comments Strength Comments Did not MMT given skin issues and LEs are functional Coordination Assessment Gross Coordination Gross Coordination Impaired Sensation Assessment Sensation Gross Sensation Right LE Impaired,Left LE Impaired M6 PT-IP Treatment Start: 04/25/25 12:09 Freq: NEEDED Status: Active Protocol: Document 05/04/25 12:10 AB (Rec: 05/04/25 13:02 AB [id number]) Physical Therapy Treatment Education Education Provided Safety M7 PT-IP Assessment and Plan Start: 04/25/25 12:09 Freq: NEEDED Status: Active Protocol: Document 05/04/25 12:10 AB (Rec: 05/04/25 13:02 AB [id number]) PT Summary Assessment and Plan Potential Rehabilitation Fair Potential Summary Impairments Pain,ROM,Strength,Balance,Coordination,Sensation,Tone, Cognition,Bed Mobility,Transfers,Gait,Activity Tolerance Progress Towards Slow Progress due to Medical Issues,Slow Progress due Goals to Activity Tolerance,Slow Progress - Other Assessment Summary pt cooperative during PT session. pt presents with increase tremors during standing and ambulation today. pt requiring mod A with ambulation using FWW and continues to need 24/ assist and will benefit from SNF rehab. Goals Bed Mobility Goal Independent Transfer Goal Independent,Front Wheeled Walker,Four Wheeled Walker Gait Goal Independent,Front Wheel Walker,Four Wheel Walker Gait Distance 75 Other Goals Pt will ascend and descend 4 steps with left rail to allow safe home entrance. Days to Meet Goals 5 Frequency of Treatment Frequency Of Once a Day Treatment Treatment Plan Physical Therapy Bed Mobility Training,Transfer Training,Gait Training, Treatment Plan Therapeutic Exercise,Balance Retraining,Discharge Planning,Neuromuscular Re-ed,Coordination Retraining Other Recommend limiting gait distance to functional Recommendations and distances as needed given foot wounds Next Treatment Focus Precautions Other Precautions fall Recommendations To Nursing Amount of Assist 1 Person Assist Needed Discharge Recommendations PT Discharge SNF Rehab Recommendations Transportation Needs Private Vehicle,Wheelchair/Cabulance at Discharge - PT assist 1
--- NOTE | 2025-05-04 13:45 | P.DS_ITS ---
History of Present Illness History of Present Illness Date Patient Seen: 05/04/25 Chief complaint: Alcohol withdrawal hepatic encephalopathy Narrative: Chief complaint: Acute severe alcohol withdrawal History of present illness: 49 yo male with history of alcohol dependence with withdrawal and osteomyelitis secondary to ESBL E coli in the setting of right foot neuropathic ulcer, hepatosplenomegaly, portal hypertension, peripheral neuropathy and hypertension who presented to the emergency department with severe alcohol intoxication and suicidal ideation this morning. At the time of arrival at 7:45 a.m. this morning, his alcohol level was 0.504. He was quite agitated and voicing suicidal ideation. He showed up with his [id number] who was also intoxicated. She had reported drinking with him to keep him company. He had significant agitation requiring treatment with IV Benadryl, Haldol, and diazepam. He also received IV fluids and thiamine. The plan was to monitor him for 4-5 hours to see if as his alcohol level decreased whether his suicidal ideation improved. Unfortunately, he became agitated again in the emergency department later in the day and required additional IV diazepam. His ammonia level was elevated at 66. Lactulose was ordered but could not be given due to his agitation. Due to his ongoing agitation and concern for withdrawal, admission was recommended. Patient tells me he has been drinking 6-12 high alcohol content large beers daily. He has not been eating. He has been drinking some water. He has been having dry heaves but no active emesis or hematemesis. He has been falling and hitting his head, but does not have any abrasions. He denies loss of consciousness. He is very down on himself due to his alcohol dependence. He denies active suicidal ideation at this time. Repeat alcohol level was done and was 0.386. On arrival to the intensive care unit, he is extremely tremulous, but alert and oriented. He is cooperative and pleasant. Hospital course: 04/24-05/02: Patient detoxified but with a slow recovery of function was also admitted into the hospital who while hospitalized today 05/03: Patient has been off of CIWA protocol for 48 hours without any signs of withdrawal is less lethargic today reports irritation with multiple issues insists that he wants to go home but acknowledges that he can not stand or get out of bed and that this would not be workable 05/04: Patient is now of clear mentation off of all intoxicants grieving for the loss of his and asked to be to be discharged home requesting prescription for naltrexone to reduce alcohol craving patient is ambulating Review of systems: No fevers or chills No nausea vomiting diarrhea No chest pain Physical exam: Disheveled remorseful emotional male appearing in poor health HEENT poor dentition scleral icterus Heart rate and rhythm regular no murmurs new line lungs clear to auscultation new line abdomen obese distended but nontender 3+ bipedal edema 5th metatarsal foot ulcer which does not appear to be full-thickness, there was no significant proximal erythema or significant fluctuance Assessment and plan: Alcohol intoxication alcoholic hepatitis hepatic encephalopathy severe depression and probable hepatic encephalopathy and Wernicke-Korsakoff syndrome resolved * Mentation cleared after stopping all intoxicants and taking lactulose * Has been off CIWA protocol without any signs of withdrawal * Scheduled lactulose at home * Disposition to home with [facility], with whom he is enrolled, and left a message requesting that they do a Well Check on him in about 2-days due to safety * Cipro for Proteus UTI for 8 days I spent 35 minutes evaluation consultation with other physicians Health professionals in the management of this patient Discharge Providers Provider Date of admission: 04/23/25 15:26 Discharge Date: 05/04/25 Primary care physician: Mario Cutler MD Consults: 04/23/25 07:41 Consult to [facility] [place] [facility] Professor Of Biostatistics Stat Comment: Research Professor Of Biostatistics Consult needed for:: Suicidal/homicidal ideat. Comment: SI 04/23/25 08:02 Consult to [facility] Professor Of Biostatistics Stat Comment: Research Professor Of Biostatistics Consult needed for:: Unable to care for self Substance abuse Suicidal/homicidal ideat. 04/23/25 16:24 Consult to Discharge Planning Routine Comment: 04/23/25 17:57 Consult to [facility] Professor Of Biostatistics Routine Comment: Research Professor Of Biostatistics Consult needed for:: Substance abuse Suicidal/homicidal ideat. 04/25/25 11:03 Consult to Occupational Therapy Evaluate & Treat Comment: Physician Instructions: Evaluate and treat Consult to Physical Therapy Evaluate & Treat Comment: Physician Instructions: Evaluate and Treat 04/28/25 15:00 Consult to Speech Therapy Evaluate & Treat Comment: RN observed cough/pt reports aspiration w/swallow Physician Instructions: Evaluate and treat Discharge provider: Chau Gorman MD Exam Vital Signs (past 8 hours): Fraction of Inspired Oxygen 35 Oxygen Delivery Method Room Air Oxygen Flow Rate 0 Objective Labs 05/04/25 09:03 05/04/25 09:03 Labs: Laboratory Results - last 24 hr 05/04/25 09:03 WBC 3.7 L RBC 3.96 L Hgb 10.4 L Hct 32.0 L MCV 81.0 MCH 26.3 MCHC 32.5 RDW 18.7 H Plt Count 93 L Neut % (Auto) 61.9 Lymph % (Auto) 21.3 L [place] % (Auto) 12.0 Eos % (Auto) 3.9 Baso % (Auto) 0.9 Neut # (Auto) 2300 Lymph # (Auto) 800 L [place] # (Auto) 400 Eos # (Auto) 100 Baso # (Auto) 0 Sodium 135 L Potassium 3.6 Chloride 104 Carbon Dioxide 21 L BUN 12 Creatinine 0.76 Estimated GFR > 60 BUN/Creatinine Ratio 15.8 Glucose 118 H Calcium 9.1 Magnesium 1.8 PFSH Medical History Hepatosplenomegaly Portal hypertension Hepatosplenomegaly Foot osteomyelitis, right Neuropathic foot ulcer Decreased libido Erectile dysfunction Alcohol abuse (~2016) Low back pain (Unknown) Polyneuropathy (Unknown) Acne (Unknown) Hypertension (2004) Essential hypertension (09/12/16) Surgical History H/O surgical amputation of finger Hx of cholecystectomy (2001) Family History Grandmother Mental health problem Grandfather Cancer Grandmother Cancer Mother History of back problems Father Amputation leg, bilat Social History household members: spouse and family Tobacco: How many years used: 1 Smokeless tobacco user: chewing tobacco (many, many years) alcohol intake: current substance use type: does not use Discharge Plan Discharge Plan Patient Disposition: Home Discharge orders & Medications Prescriptions: New naltrexone 50 mg tablet 50 mg PO DAILY Qty: 30 1RF Continued pregabalin 75 mg capsule 75 mg PO TID Patient Comments: TAKE ONE CAPSULE BY MOUTH THREE TIMES DAILY furosemide [Lasix] 40 mg tablet 40 mg PO DAILY Qty: 30 0RF spironolactone 25 mg tablet 25 mg PO DAILY Qty: 30 0RF folic acid 1 mg Tablet 1 mg PO DAILY Qty: 30 0RF Rx Instructions: NOT PICKED UP YET thiamine mononitrate (vit B1) 100 mg Tablet 100 mg PO DAILY Qty: 30 0RF Rx Instructions: NOT PICKED UP YET multivitamin with folic acid [Tab-A-Carmelo] 400 mcg Tablet 1 tab PO DAILY Qty: 30 0RF Rx Instructions: NOT PICKED UP YET lactulose 10 gram/15 mL Solution 20 gm PO TID Qty: 500 0RF Follow up/Referrals: Mario Cutler MD [Primary Care Provider, Family Practice] Visit Report/Discharge Packet Instructions: DI for Urinary Tract Infection (UTI), DI for Drug or Alcohol Withdrawal Stand Alone Forms: Patient Portal/API, Stroke Signs & Symptoms Discharge Data Primary Care Provider: Mario Cutler
--- NOTE | 2025-05-04 13:49 | OT.IPNOTE ---
Clinician checked-in with nurse Rossy Rasheed prior to attempt to enter room. Eric was up seated in chair speaking on personal cell phone at 1:35 p.m.. OT to re-attempt at later time if schedule permitting.
--- NOTE | 2025-05-04 14:39 | CM.DPC ---
DCP Cont. Reviewed EMR and team rounds for pt's status and updates. BEATER ENGINEER has been working on sending clinicals to 2-different SNF rehab facilities that are reviewing pt for admission. He is medically cleared for d/c, although he remains very unsteady on his feet, has slow cognitive processing, and his home is deemed unlivable by EMS staff, who have made several visits out to the home. Today patient is insisting to the Hospitalist to be discharged home today, and that he has a friend who can help him if needed. BEATER ENGINEER advised against this, however he is decisional now and made it clear that this is his right and his plan. Provided a taxi voucher for pt, as he did not bring his wallet, and does not a ride home. Called and left a message for the [facility], with whom he is enrolled, and left a message requesting that they do a Well Check on him in about 2-days due to safety and self-harm concerns. Pt is denying suicidality right now, however he is also high risk for going home and becoming intoxicated/unable to care for himself.
[2025-05-04 15:12] VITALS: BP 131/72; PULSE 88; RESP 16; TEMP 35.7; O2SAT 100
--- NOTE | 2025-05-04 16:01 | PC.NURSE ---
Day shift: Discharge instructions gone over with patient. Patient stated understanding, all questions answered. PIV x2 removed prior to discharge. All belongings with patient. PCT Bren escorted patient via wheelchair to exit where [employer] will drive him home. Taxi voucher already given to patient.
--- NOTE | 2025-05-06 16:19 | CM.SWNOTE ---
Post Discharge Note Received call from [employer] Officer John P [phone]; Jon (Eric Fontenot) has not been responding to calls from family and friends. Officer John states concern that Jon was discharged back to his home 05/04. Officer John familiar with Jon and was one of the officers that brought Jon into the ER initially for suicidal threats related to the hospital admission of his late Cheri. Officer John reports he will be going over to Jon's house now and I fully expect him to be . Officer states multiple times his concern about Jon's safety, stating: Jon Fontenot drinks often and heavily, likely is not eating or drinking other than alcohol Jon has struggled with suicidal ideation and threats, passive suicide attempts by heavy ETOH use Utilities have not been paid and are scheduled to be shut off Jon's home has not been cleaned since Jon's late Cheri, Jon's MIL Jessi and Jon were admitted to . The home is covered with urine, feces and is filthy. Reviewed chart. It appears patient was considered alert and oriented 05/04, the day of his discharge and was adamant about returning home. Dr Gorman completed the discharge 05/04. Spoke again with officer John when he was with Jon at his home. Jon was intoxicated, could not ambulate, was denying suicidal ideation and refused to go with [employer] to the ER. Between record review and discussion with [employer]; this GEL COAT SPRAYER feels Jon meets grave disability and would be a potential candidate for detainment under [place]; although Jon may not meet functional requirement (Indp in ADLs) to go to INPT ETOH rehab. Office John planned to discuss case with the fire captain marine and call APS. Patient continued to refuse escort to the ER. As of 05/06 4:34p have not heard from [employer] again re Jon Fontenot. REE Malhotra
--- NOTE | 2025-05-09 19:51 | PC.NURSE ---
Late Entry Note 05/03/25- Lyrica held in am due to VORB while doing med pass with MD Gorman in room. Sabaa wasted at bedside.
--- NOTE | 2025-05-10 15:00 | CM.DPNOTE ---
Post discharge Follow up Fire Department Giovanny Sanches stopped by this CM office this morning reporting they were planning to follow up with pt in regards to the wellness check at home for him. RADIOCOMMUNICATIONS TECHNICIAN recieved call from Chirag Minaya Fire Right Of Way Manager Chief. [phone]. reports per [employer] law enforcement, pt's family from [place] is in [place] and is working on moving him to [place] with them. pt is concerned about getting his cats back, law enforcement won't return them due to the deplorable conditions in his home, and would return once house cleaned up. Will have Leonardo Saldaña (fill in for Kimo iyer) continue to f/u with our RADIOCOMMUNICATIONS TECHNICIAN team REE Crawford
--- NOTE | 2025-05-10 15:05 | CM.SWNOTE ---
Post discharge Follow up Fire Department Giovanny Sanches stopped by this CM office this morning reporting they were planning to follow up with pt in regards to the wellness check at home for him. FEED CRUSHER recieved call from Chirag Minaya Fire Public Health Social Worker Chief. [phone]. reports per [employer] law enforcement, pt's family from [place] is in [place] and is working on moving him to [place] with them. pt is concerned about getting his cats back, law enforcement won't return them due to the deplorable conditions in his home, and would return once house cleaned up. Will have Leonardo Saldaña (fill in for Kimo iyer) continue to f/u with our FEED CRUSHER team REE Crawford
== END 2025-05-04 16:03 | disposition home or self-care (01) | DRG 775 ==
LOC: ED 15:25 → AC 15:27 → ICU 16:14 → AC 04-27 17:25
PROVIDERS: Internal Medicine; Admitting Provider Family Medicine; Emergency Provider Emergency Medicine; PCP Family Medicine; Referring Provider Emergency Medicine; Visit Provider Family Medicine
DX: F10.221 Alcohol dependence with intoxication delirium (principal); R45.851 Suicidal ideations; E87.0 Hyperosmolality and hypernatremia; K76.82 Hepatic encephalopathy; F10.231 Alcohol dependence with withdrawal delirium; D64.9 Anemia, unspecified; D69.6 Thrombocytopenia, unspecified; J96.01 Acute respiratory failure with hypoxia; R73.9 Hyperglycemia, unspecified; R74.01 Elevation of levels of liver transaminase levels; I10 Essential (primary) hypertension; E83.42 Hypomagnesemia; E87.1 Hypo-osmolality and hyponatremia; F10.26 Alcohol dependence with alcohol-induced persisting amnestic disorder; L97.819 Non-pressure chronic ulcer of other part of right lower leg with unspecified severity; K70.10 Alcoholic hepatitis without ascites; F17.220 Nicotine dependence, chewing tobacco, uncomplicated; Y90.8 Blood alcohol level of 240 mg/100 ml or more
CPT/HCPCS: 36415; 71045; 71275; 80048; 80053; 80305; 80320; 80329; 81001; 82140; 83036; 83735; 84443; 85025; 87077; 87086; 87186; 87797; 92610; 93005; 94660; 96365; 96368; 96372; 96375; 96376; 97110; 97112; 97116; 97162; 97165; 97530; 97535; 99284; 99291; G0480; J1171; J1200; J1630; J2560; J3360; J3475; Q9967